=== PATIENT | male | born 1960 | race Caucasian/White ===

== ENCOUNTER 2016-07-10 09:20 | Outpatient (CLI) | payer OTHER ==
[~2016-07-10 09:20] MED LIST: ALBUTEROL INH; ASPI81TA28 PO; CHOL20007 PO; DOCU-94 PO; DULO60CA44 PO; DUTA0.5C PO; FERRTAB18 PO; FLUT1INH INH; FOLI1TAB7 PO; IPRATROPIUM INH; MORP60TA6 PO; MULT-884 PO; OXYCODONE PO; PANT40TA PO; SENN-61 PO; TAMS0.4C38 PO; UMEC1AER INH; atarax PO; gabapentin PO
[2017-01-22] MEDS ORDERED: ATRIN INH (09:36)
[2017-01-22] MEDS ORDERED: OXYC1TAB3 PO (09:36)
[2017-01-22] MEDS ORDERED: HYDR-3126 PO (09:36)
[2017-01-22] MEDS ORDERED: GABA-112 PO (09:36)
== END 2016-07-10 09:45 ==
LOC: C.PAIN 09:20 → EDSTATUS 09:30 → C.PAIN 09:45
PROVIDERS: ATTEND Anesthesiology

== ENCOUNTER → 2017-10-15 | Outpatient (CLI) | payer OTHER ==
[~2017-10-15] MED LIST changes: -ALBUTEROL INH; +ATRIN INH; -FOLI1TAB7 PO; +FOLI1TAB8 PO; +GABA-112 PO; +HYDR-3126 PO; -IPRATROPIUM INH; +OXYC1TAB3 PO; -OXYCODONE PO; -atarax PO; -gabapentin PO
[2017-10-15 16:59] LABS: BASO % 0.8 %; BASO ABS # 0.05 K/uL (0-0.2); EOS % 5.3 %; EOS ABS # 0.35 K/uL (0-0.5); HEMATOCRIT 35.5 % (42-52); HEMOGLOBIN 11.4 g/dL (14.0-18.0); IG# 0.02 K/uL (0.00-0.02); LYMPH % 24.3 %; MEAN CELL VOLUME 87.7 fL (80-100); MEAN CORPUSCULAR HEMOGLOBIN 28.1 pg (25-34); MEAN CORPUSCULAR HGB CONC 32.1 g/dl (32-36); MEAN PLATELET VOLUME 8.2 fL (7.4-10.4); MONO % 6.5 %; MONO ABS # 0.43 K/uL (0.11-0.59); NEUT % 62.8 %; NEUT ABS # 4.14 K/uL (1.4-6.5); PLATELET COUNT 339 K/uL (130-400); RED CELL DISTRIBUTION WIDTH SD 54.8 fL (36.4-46.3); WHITE BLOOD COUNT 6.59 K/uL (4.8-10.8)
[2017-10-15 17:23] LABS: ALBUMIN 3.1 gm/dl (3.4-5.0); ALKALINE PHOSPHATASE 123 U/L (45-117); ALT/SGPT 11 U/L (12-78); AST/SGOT 13 U/L (15-37); BLOOD UREA NITROGEN 9 mg/dl (7-18); CALCIUM 8.8 mg/dl (8.5-10.1); CARBON DIOXIDE 32 mmol/L (21-32); CREATININE 1.19 mg/dl (0.60-1.40); GLUCOSE 106 mg/dl (70-99); SODIUM 139 mmol/L (136-145); TOTAL PROTEIN 7.8 gm/dl (6.4-8.2)
== END | disposition home or self-care (01) ==
LOC: C.LABPBG 11:27
PROVIDERS: ATTEND Family Medicine
DX: N18.3 Chronic kidney disease, stage 3 (moderate) (principal); D64.9 Anemia, unspecified

== ENCOUNTER 2019-04-05 19:38 | Inpatient (IN) ==
[2019-04-05] MEDS ORDERED: SODIUM CHLORIDE 0.9% 1000ML 1,000 ML IV ONE ×2 (20:12→20:41)
[2019-04-05] MEDS ORDERED: ALBUT/IPRATROP 3MG/0.5MG NEB 3 ML VIAL NEB ONE (20:12)
[2019-04-05] MEDS ORDERED: methylPREDNISolone 125 MG/2 ML VIAL IV STA (20:12)
[2019-04-05] MEDS ORDERED: cefTRIAXone SODIUM 1,000 MG/50 ML BAG IV STA (20:30)
[2019-04-05 20:33] LABS: Basophils # (auto) 0.03 K/uL (0-0.2); Basophils % (auto) 0.3 %; Eosinophils # (auto) 0.08 K/uL (0-0.5); Eosinophils % (auto) 0.8 %; Hematocrit (blood only) 39.3 % (42-52); Hemoglobin 13.3 g/dL (14.0-18.0); Immature Granulocytes # (auto) 0.03 K/uL (0.00-0.02); Immature Granulocytes % (auto) 0.3 %; Lymphocytes # (auto) 1.07 K/uL (1.2-3.4); Lymphocytes % (auto) 10.1 %; Mean Corpuscular Hgb Conc 33.8 g/dL (32-36); Mean Corpuscular Volume 88.5 fL (80-100); Mean Platelet Volume 8.4 fL (7.4-10.4); Monocytes # (auto) 1.26 K/uL (0.11-0.59); Monocytes % (auto) 11.8 %; Neutrophils # (auto) 8.17 K/uL (1.4-6.5); Neutrophils % (auto) 76.7 %; Platelet Count 297 K/uL (130-400); RDW Coefficient of Variation 15.3 % (11.5-14.5); RDW Standard Deviation 49.8 fL (36.4-46.3); Red Blood Count 4.44 M/uL (4.7-6.1); White Blood Count 10.64 K/uL (4.8-10.8)
[2019-04-05 20:48] LABS: Base Excess VBG 0.8 mEq/L; HCO3 VBG 28 mmol/L; PCO2 VBG 53 mmHg (38-50); PO2 VBG 31 mmHg; pH VBG 7.33 (7.36-7.41)
[2019-04-05 20:49] LABS: INR 1.1 (0.9-1.1); Partial Thromboplastin Ratio 1.2; Partial Thromboplastin Time 31.3 Seconds (21.0-31.0); Prothrombin Time 11.4 Seconds (9.0-12.0)
[2019-04-05 20:51] LABS: Alanine Aminotransferase 16 U/L (12-78); Albumin Level 3.3 gm/dl (3.4-5.0); Aspartate Aminotransferase 12 U/L (15-37); BUN Creatinine Ratio 14.2 (10-20); Blood Urea Nitrogen 20 mg/dl (7-18); Calcium 9.6 mg/dl (8.5-10.1); Carbon Dioxide 28 mmol/L (21-32); Chloride 99 mmol/L (98-107); Creatinine Clr Calc Pharmacy 53.3 ml/min; Est GFR (African American) 64.3; Est GFR (Non-African American) 55.5; Glucose 97 mg/dl (70-99); Potassium 4.1 mmol/L (3.5-5.1); Sodium 132 mmol/L (136-145)
[2019-04-05 20:56] LABS: Albumin Globulin Ratio 0.6 (0.9-2); Alkaline Phosphatase 210 U/L (45-117); Bilirubin,Total 0.8 mg/dl (0.2-1); Globulin 5.8 gm/dl (2.5-4.0); Total Protein 9.1 gm/dl (6.4-8.2); Troponin I < 0.015 ng/ml (0-0.045)
[2019-04-05 21:04] LABS: Oxygen Saturation VBG < 60.0 %
--- NOTE | 2019-04-05 21:13 | XRay Report ---
SINGLE VIEW CHEST CLINICAL HISTORY: Sepsis. FINDINGS: 2 AP, portable, upright chest radiographs are correlated with chest CT dated 11/21/2015. The examination is degraded by portable technique and patient rotation. The cardiomediastinal silhouette is unremarkable noting atherosclerotic calcification of the thoracic aorta. Enlargement of the centr al pulmonary arteries suggests pulmonary artery hypertension. Advanced emphysema and chronic intersti tial thickening are similar to previous. Biapical bullous change is noted, right greater than left. L inear scarring in the right midlung is similar to previous, and scarring is noted at both lung bases. There is patchy airspace consolidation in the left mid to lower lung, with additional densities in t he right lower lung. A 1.6 cm density is noted in the left upper lobe. No large pleural effusion or p neumothorax is seen. The skeletal structures are osteopenic. The bony thorax is grossly intact. IMPRESSION: 1. Advanced emphysema. 2. There is patchy airspace consolidation in the left mid to lower lung and likely in the right lower lung. Additional densities are noted in the left upper lobe. Correlate clinically for evidence of mu ltifocal pneumonia. Radiographic follow-up to complete resolution is recommended. If these densities failed to resolve a nonemergent chest CT should be considered for further assessment. Electronically signed by: Thee De La Cruz M.D. 04/05/2019 9:12 PM
[2019-04-05 21:18] LABS: Influenza A virus by PCR Neg for Influ A (Neg); Influenza B virus by PCR Neg for Influ B (Neg)
[2019-04-05] MEDS ORDERED: AZITHROMYCIN 250 MG TAB PO ONE (21:21)
--- NOTE | 2019-04-05 22:28 | History & Physical Report ---
Date of Service April 05, 2019 Assessment & Plan (1) Multifocal pneumonia: Mr. Park is a 58-year-old male with a past medical history of CKD stage III, COPD, liver cirrhosis, hypothyroidism, depression, prediabetes, alcoholic neuropathy and chronic pain syndrome who presents to the emergency department, after being referred from his PCPs office for cough, shortness of breath and hypoxia. ED Course: 125 mg IV methylprednisolone, 2 L normal saline bolus 1 g IV Rocephin, 500 mg p.o. azithromycin, DuoNebs treatment Sepsis secondary to multifocal pneumonia -Admit to telemetry -Patient meets criteria for sepsis with tachycardia and tachypnea, with a pulmonary source of infection -Chest x-ray revealed advanced emphysema and airspace consolidation in the left mid to lower lung, and right lower lung, as well as left upper lobe indicating multifocal pneumonia -Patient's oxygen saturations dropped to 77% on room air in ER, patient was placed on CPAP and has been saturating well since -Blood cultures drawn and pending x2 -Patient received Rocephin and azithromycin in ER, however given history of COPD and presence of multifocal pneumonia, will broaden antibiotic coverage to Zosyn, vancomycin and azithromycin -MRSA swab ordered -Will also continue IV steroids, given significant wheezing on examination. 60 mg IV Solu-Medrol ordered every 8 hours -2 L normal saline bolus administered in the ER, continue maintenance IV fluids with lactated Ringer's at 100 mls/hr x 2 bags -DuoNebs ordered every 4 hours scheduled Chronic kidney disease stage III -Follows with nephrology -Creatinine 1.39 on admission, continue to monitor. Baseline appears to be 1.1 -Avoid nephrotoxic agents COPD -Continue home inhalers Anemia -chronic and stable, related to iron deficiency -Hemoglobin 13.3 on arrival -Colonoscopy in August 2016 noted internal hemorrhoids and tubular adenoma, due for repeat colonoscopy in 3 years -Continue home iron supplementation and folic acid Alcoholic cirrhosis -Per review of outpatient records, was previously on the transplant list at [facility], but was discharged from the list due to "low numbers" -Follows with GI Dr. Almodovar every 3-4 months at [facility] -Quit drinking in 2011 Prediabetes -Hemoglobin A1c 6.3% in May 2018 -Given patient will be placed on high-dose IV steroids, will order BSG AC/HS with insulin sliding scale BPH -Hold home tamsulosin given hypotension Depression -Continue home BuSpar and venlafaxine GERD -Continue home pantoprazole Alcoholic neuropathy/chronic pain -Continue home PRN oxycodone and gabapentin -Follows with pain management Hypothyroidism -Continue home levothyroxine CODE STATUS: Full DVT prophylaxis: 40 mg Lovenox SQ daily Disposition: Admit to telemetry (2) COPD exacerbation: (3) Respiratory failure: (4) Acid reflux: (5) Anemia: (6) Benign prostate hyperplasia: (7) Chronic kidney disease, stage III (moderate): (8) Chronic pain syndrome: (9) Cirrhosis, alcoholic: (10) Depression: (11) Hypothyroidism: (12) Insomnia: (13) Neuropathy, alcoholic: (14) Prediabetes: History of Present Illness Chief Complaint: Cough, shortness of breath Primary Care Provider: Michelle Campos DO Mr. Park is a 58-year-old male with a past medical history of CKD stage III, COPD, liver cirrhosis, hypothyroidism, depression, prediabetes, alcoholic neuropathy and chronic pain syndrome who presents to the emergency department, after being referred from his PCPs office for cough, shortness of breath and hypoxia. He presented to his PCPs office earlier today due to productive cough, shortness of breath, chest tightness for 1 week. He states that his entire family has had cold-like symptoms recently, however their symptoms have all improved, whereas he has been worsening. He states that he has a history of COPD, and has been using his inhalers at home as prescribed. He reports also trying his nebulizer treatments at home without relief in symptoms. He denies fever or chills, but reports feeling significantly short of breath, particularly with holding a conversation. He denies any chest pain. He does not normally use oxygen at home. He states that he has not been hospitalized for pneumonia before. He has no prior cardiac history, including an [place] or congestive heart failure. His primary care provider checked his oxygen level in the office, and found it was dropping to 83% during conversation. They administered a DuoNeb treatment and oxygen in the office, and his saturations improved to 92%. They recommended that he come to the ER for evaluation. Allergies Allergy/AdvReac Type Severity Reaction Status Date / Time pregabalin Allergy Unknown ANAPHYLAXIS Verified 04/05/19 18:17 Home Medications Home Medications Medication Instructions Recorded Confirmed Type aspirin 81 mg tablet,delayed 81 mg PO DAILY #30 tab 12/22/18 04/05/19 Rx release buspirone 10 mg tablet 10 mg PO TID #90 tab 12/22/18 04/05/19 Rx cholecalciferol (vitamin D3) 3,000 3,000 unit PO BID #60 tab 12/22/18 04/05/19 Rx unit tablet ferrous sulfate 325 mg (65 mg 325 mg PO BID #60 tab 12/22/18 04/05/19 Rx iron) tablet fluticasone furoate 100 1 inh INHALATION QAM #60 ea 12/22/18 04/05/19 Rx mcg-vilanterol 25 mcg/dose inhalation powder ipratropium-albuterol 0.5 mg-3 3 ml INHALATION Q6H PRN #3 ml 12/22/18 04/05/19 Rx mg(2.5 mg base)/3 mL nebulization soln levothyroxine 25 mcg tablet 25 mcg PO DAILY #30 tab 12/22/18 04/05/19 Rx oxycodone 10 mg tablet 10 mg PO Q6H PRN #30 tab 12/22/18 04/05/19 Rx sennosides 8.6 mg tablet 8.6 mg PO BID #60 tab 12/22/18 04/05/19 Rx umeclidinium 62.5 mcg-vilanterol 1 inh INHALATION QPM #60 ea 12/22/18 04/05/19 Rx 25 mcg/actuation powdr for inhalation gabapentin 600 mg tablet 600 mg PO QID #120 tab 01/12/19 04/05/19 Rx hydroxyzine HCl 25 mg tablet 25 mg PO TID #90 tab 01/12/19 04/05/19 Rx pantoprazole 40 mg tablet,delayed 40 mg PO DAILY #30 tab 01/12/19 04/05/19 Rx release folic acid 1 mg tablet 1 mg PO DAILY #30 tab 02/14/19 04/05/19 Rx mirtazapine 30 mg tablet 30 mg PO HS #30 tab 02/14/19 04/05/19 Rx tamsulosin 0.4 mg capsule 0.4 mg PO DAILY #30 cap 02/14/19 04/05/19 Rx venlafaxine ER 150 mg 150 mg PO QAM #30 cap 02/14/19 04/05/19 Rx capsule,extended release 24 hr gabapentin 100 mg capsule 100 mg PO QID #120 cap 02/16/19 04/05/19 Rx docusate sodium 100 mg capsule 100 mg PO BID #60 cap 03/20/19 04/05/19 Rx Past Med/Surg History Medical History Acid reflux Anemia Benign prostate hyperplasia Charcot's joint of foot, non-diabetic Chronic kidney disease, stage III (moderate) Chronic obstructive pulmonary disease Chronic pain syndrome Cirrhosis, alcoholic Constipation Depression Disc degeneration, lumbar Hypothyroidism Insomnia Neuropathy, alcoholic 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, left ankle and foot Portal hypertension Prediabetes Avascular necrosis of bone of left hip History of pneumonia Surgical History H/O oral surgery tooth extraction Hx of umbilical hernia repair 11/14/12 S/P hip [place] [facility] [place] post [place] surgery January 10, 2013 L hip fracture w/ fixation Status post total replacement of left hip January 18, 2018 Family History Father Aneurysm Hx of CABG Family history of cardiac pacemaker Coronary heart disease Cardiac pacemaker Mother Family history of cardiac pacemaker Diabetes Hypertension Cardiac pacemaker Brother Diabetes Other Family history non-contributory Social History Preferred Language: Albanian Visual Impairment: No Limitations Hearing Ability: Normal Beliefs That Will Affect Care: None marital status: marital status details: 1 son, 3 daughters Current Living Situation: Spouse Current Living Situation Comment: lives with spouse, daughter and grandchild. current occupational status: unemployed and disabled Other Information That Helps Us Care for You: No Feels Safe at Home: Yes Safety Concerns: Feels Safe At This Time Smoking Status: Current every day smoker Tobacco Type: cigarettes ; Cigarettes Per Day: 10 ; Second Hand Exposure: No ; Hx Alcohol Use: No Hx Substance Use: Yes substance use type: marijuana Substance Use Type Other:: couple times a week Last Used Substance: Days (ago) Last Used Substance Other:: 2 days ago Dental Care, Regularly: No Physical Activity Frequency: Does not Exercise Seatbelt Use: always Review of Systems Constitutional: + fatigue; no fever, no chills and no anorexia Respiratory: + cough, + chest congestion, + dyspnea and + sputum production; no hemoptysis Cardiovascular: no chest pain, no palpitations, no syncope, no edema and no calf pain Gastrointestinal: no abdominal pain, no nausea, no vomiting and no change in bowel habits Genitourinary: no dysuria, no difficulty urinating, no urinary frequency and no urinary incontinence Musculoskeletal: no back pain Physical Exam Constitutional: WD/WN, vitals as above Tachypneic, wearing CPAP Eyes: PERRL, conjunctivae normal, anicteric sclerae Respiratory: + cough Auscultation: + rhonchi and + wheezes Cardiovascular: Rate/Rhythm: regular rhythm and + tachycardic Vessels: normal peripheral pulses Extremities: normal capillary refill; no calf tenderness and no edema Gastrointestinal (Abdomen): normal bowel sounds, soft, nontender, no hepatosplenomegaly Musculoskeletal: no cyanosis or clubbing, extremities motor strength 5/5 Skin: no rashes, warm and dry Neurologic: PERRL, EOMI, accommodation nl, no face palsy, no dysarthria Psychiatric: A+Ox3, euthymic affect Results & Data Vital Signs (Past 12 Hours) Vital Signs Temp Pulse Pulse Resp BP Pulse Ox 04/05/19 22:00 100 H 25 H 108/65 99 04/05/19 21:30 100 H 27 H 115/65 100 04/05/19 21:09 100 04/05/19 21:00 98 H 16 111/66 100 04/05/19 20:58 97 H 20 107/66 100 04/05/19 20:43 101 H 24 100 04/05/19 20:15 100 H 24 100 04/05/19 19:59 37.3 C 121 H 30 H 104/60 77 L 04/05/19 19:27 106 H 17 127/81 100 Supervising Physician Co-Signing Physician Notes Patient was seen and examined by me personally. I reviewed the chart, the orders and discussed the case in detail with Dr. Sandra Clarke MD. I read this H&P and agree with its contents to entirety. Resident Activity Tracking Resident Involvement: Resident Care Provided Care Provided: Adult Hospital Medicine (1) Respiratory failure Chronicity: unspecified Respiratory failure complication: hypoxia and hypercapnia Qualified Code(s): J96.91 - Respiratory failure, unspecified with hypoxia; J96.92 - Respiratory failure, unspecified with hypercapnia
[2019-04-05] MEDS ORDERED: DEXTROSE 50% 50 ML SYRINGE IV PRN (23:38)
[2019-04-05] MEDS ORDERED: ONDANSETRON INJ 2 MG/ML 2 ML VIAL IV PRN (23:38)
[2019-04-05] MEDS ORDERED: CARBOHYDRATES FOR HYPOGLYCEMIA PO PRN (23:38)
[2019-04-05] MEDS ORDERED: ACETAMINOPHEN 325 MG TAB PO PRN (23:38)
[2019-04-05] MEDS ORDERED: GLUCOSE 10 TABS/TUBE PO PRN (23:38)
[2019-04-05] MEDS ORDERED: MAGNESIUM HYDROXIDE SUSP 30 ML UDC PO PRN (23:38)
[2019-04-05] MEDS ORDERED: ALUMINUM/MAGNESIUM SUSP 30 ML UDC PO PRN (23:38)
[2019-04-05] MEDS ORDERED: PIPERACILL/TAZOBAC CONSULT ACTIVE PRN (23:38)
[2019-04-05] MEDS ORDERED: POLYETHYLENE (MIRALAX) 17 GM PACK PO PRN (23:38)
[2019-04-05] MEDS ORDERED: GLUCAGON FOR INJ 1 MG VIAL SQ PRN (23:38)
[2019-04-05] MEDS ORDERED: GLUCOSE 40% GEL 15 GM TUBE PO PRN (23:38)
[2019-04-05] MEDS ORDERED: VANCOMYCIN CONSULT ACTIVE PRN (23:38)
[2019-04-05] MEDS ORDERED: OXYCODONE HCL IR 5 MG TAB (IMMEDIATE RELEASE) PO PRN (23:38)
[2019-04-06] MEDS: LACTATED RINGER'S 1,000 ML IV SCH ×2 (00:28→09:48)
[2019-04-06] MEDS: PIPERACILLIN/TAZOBACTAM 3.375 GM in DEXTROSE 5% 100 ML IV SCH ×2 (00:53→09:05)
--- NOTE | 2019-04-06 00:59 | Emergency Department Note ---
Entered by Ayaka Hoffman acting as a scribe for Kristian Saab M.D. History of Present Illness General Chief complaint: Hypotension Stated complaint: LOW BLOOD PRESSURE,LOW QX ANF HIGH HEART RATE Time Seen by Provider: 04/05/19 20:08 Source: patient Limitations: no limitations History of Present Illness Onset (ago): day(s) 3 Location: chest Pain Consistency: + constant Quality: + other (breathing difficulty) Relieved By: + other (breathing treatment) Exacerbated By: + other (exacerbation) Associated symptoms: + denies other symptoms (abdominal pain, sore throat, new body aches, and fevers), + headaches and + other (lower extremity pain, rhinorrhea, cough) The patient is a 58 year old male who presents to the Emergency Room with complaints of constant difficulty breathing that began 3 days ago. He states that he saw his PCP, and he was given a breathing treatment that provided short- term relief. The patient notes that his at-home nebulizer provided some relief. The patient reports that exertion worsens the symptoms. He complains of lower extremity pain and a severe headache. He notes that he has rhinorrhea and a cough. The patient denies feeling lightheaded or dizzy. He denies any abdominal pain, sore throat, new body aches, and fevers. The patient notes recent sick contacts. He notes that he smokes cigarettes. Home Medications Home Medications Medication Instructions Recorded Confirmed Type aspirin 81 mg tablet,delayed 81 mg PO DAILY #30 tab 12/22/18 04/05/19 Rx release buspirone 10 mg tablet 10 mg PO TID #90 tab 12/22/18 04/05/19 Rx cholecalciferol (vitamin D3) 3,000 3,000 unit PO BID #60 tab 12/22/18 04/05/19 Rx unit tablet ferrous sulfate 325 mg (65 mg 325 mg PO BID #60 tab 12/22/18 04/05/19 Rx iron) tablet fluticasone furoate 100 1 inh INHALATION QAM #60 ea 12/22/18 04/05/19 Rx mcg-vilanterol 25 mcg/dose inhalation powder ipratropium-albuterol 0.5 mg-3 3 ml INHALATION Q6H PRN #3 ml 12/22/18 04/05/19 Rx mg(2.5 mg base)/3 mL nebulization soln levothyroxine 25 mcg tablet 25 mcg PO DAILY #30 tab 12/22/18 04/05/19 Rx oxycodone 10 mg tablet 10 mg PO Q6H PRN #30 tab 12/22/18 04/05/19 Rx sennosides 8.6 mg tablet 8.6 mg PO BID #60 tab 12/22/18 04/05/19 Rx umeclidinium 62.5 mcg-vilanterol 1 inh INHALATION QPM #60 ea 12/22/18 04/05/19 Rx 25 mcg/actuation powdr for inhalation gabapentin 600 mg tablet 600 mg PO QID #120 tab 01/12/19 04/05/19 Rx hydroxyzine HCl 25 mg tablet 25 mg PO TID #90 tab 01/12/19 04/05/19 Rx pantoprazole 40 mg tablet,delayed 40 mg PO DAILY #30 tab 01/12/19 04/05/19 Rx release folic acid 1 mg tablet 1 mg PO DAILY #30 tab 02/14/19 04/05/19 Rx mirtazapine 30 mg tablet 30 mg PO HS #30 tab 02/14/19 04/05/19 Rx tamsulosin 0.4 mg capsule 0.4 mg PO DAILY #30 cap 02/14/19 04/05/19 Rx venlafaxine ER 150 mg 150 mg PO QAM #30 cap 02/14/19 04/05/19 Rx capsule,extended release 24 hr gabapentin 100 mg capsule 100 mg PO QID #120 cap 02/16/19 04/05/19 Rx docusate sodium 100 mg capsule 100 mg PO BID #60 cap 03/20/19 04/05/19 Rx Allergies Allergy/AdvReac Type Severity Reaction Status Date / Time pregabalin Allergy Unknown ANAPHYLAXIS Verified 04/05/19 18:17 Past Med/Surg History Medical History Acid reflux Anemia Benign prostate hyperplasia Charcot's joint of foot, non-diabetic Chronic kidney disease, stage III (moderate) Chronic obstructive pulmonary disease Chronic pain syndrome Cirrhosis, alcoholic Constipation Depression Disc degeneration, lumbar Hypothyroidism Insomnia Neuropathy, alcoholic 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, left ankle and foot Portal hypertension Prediabetes Avascular necrosis of bone of left hip History of pneumonia Surgical History H/O oral surgery tooth extraction Hx of umbilical hernia repair 11/14/12 S/P hip replacement R hip, 11/09/18 at [facility] [place] Status post hip surgery January 10, 2013 L hip fracture w/ fixation Status post total replacement of left hip January 18, 2018 Family History Father Aneurysm Hx of CABG Family history of cardiac pacemaker Coronary heart disease Cardiac pacemaker Mother Family history of cardiac pacemaker Diabetes Hypertension Cardiac pacemaker Brother Diabetes Other Family history non-contributory Social History Preferred Language: Slovenian Visual Impairment: No Limitations Hearing Ability: Normal Beliefs That Will Affect Care: None marital status: marital status details: 1 son, 3 daughters Current Living Situation: Spouse Current Living Situation Comment: lives with spouse, daughter and grandchild. current occupational status: unemployed and disabled Other Information That Helps Us Care for You: No Feels Safe at Home: Yes Safety Concerns: Feels Safe At This Time Smoking Status: Current every day smoker Tobacco Type: cigarettes ; Cigarettes Per Day: 10 ; Second Hand Exposure: No ; Hx Alcohol Use: No Hx Substance Use: Yes substance use type: marijuana Substance Use Type Other:: couple times a week Last Used Substance: Days (ago) Last Used Substance Other:: 2 days ago Dental Care, Regularly: No Physical Activity Frequency: Does not Exercise Seatbelt Use: always Review of Systems See HPI for pertinent positives & negatives. and A total of 10 systems reviewed and were otherwise negative Physical Exam Vital Signs Vital Signs - 24 hr 04/05/19 19:27 04/05/19 19:59 04/05/19 20:15 Temperature 37.3 C Temperature Source Oral Sepsis Recent Fever Within 48 Hours No Sepsis New/Unexplained Change in Mental Status No Sepsis Action Taken by Nursing No Action Required Pulse Rate 106 H 121 H Pulse Rate [Apical] 100 H Pulse Rate from SpO2 Sensor 106 H Respiratory Rate 17 30 H 24 Respiratory Effort / Characteristics Accessory Muscle Use Grunting Labored Retracting Spontaneous Labored Short of Breath SOB on Exertion Tripoding Respiratory Depth Respiratory Pattern Blood Pressure 127/81 104/60 Blood Pressure Mean 96 74 Pulse Oximetry 100 77 L 100 Oxygen Delivery Method Room Air CPAP Fraction of Inspired Oxygen 35 04/05/19 20:43 04/05/19 20:58 04/05/19 21:00 Temperature Temperature Source Sepsis Recent Fever Within 48 Hours Sepsis New/Unexplained Change in Mental Status Sepsis Action Taken by Nursing Pulse Rate 101 H 97 H 98 H Pulse Rate [Apical] Pulse Rate from SpO2 Sensor 99 H 98 H Respiratory Rate 24 20 16 Respiratory Effort / Characteristics Spontaneous Accessory Muscle Use Labored Short of Breath SOB on Exertion Tripoding Respiratory Depth Shallow Respiratory Pattern Irregular Tachypnea Blood Pressure 107/66 111/66 Blood Pressure Mean 79 81 Pulse Oximetry 100 100 100 Oxygen Delivery Method Fraction of Inspired Oxygen 35 04/05/19 21:09 04/05/19 21:30 04/05/19 22:00 Temperature Temperature Source Sepsis Recent Fever Within 48 Hours Sepsis New/Unexplained Change in Mental Status Sepsis Action Taken by Nursing Pulse Rate 100 H 100 H Pulse Rate [Apical] Pulse Rate from SpO2 Sensor 100 H 100 H Respiratory Rate 27 H 25 H Respiratory Effort / Characteristics Respiratory Depth Respiratory Pattern Blood Pressure 115/65 108/65 Blood Pressure Mean 81 79 Pulse Oximetry 100 100 99 Oxygen Delivery Method CPAP Fraction of Inspired Oxygen 04/05/19 22:30 Temperature Temperature Source Sepsis Recent Fever Within 48 Hours Sepsis New/Unexplained Change in Mental Status Sepsis Action Taken by Nursing Pulse Rate 100 H Pulse Rate [Apical] Pulse Rate from SpO2 Sensor 100 H Respiratory Rate 25 H Respiratory Effort / Characteristics Respiratory Depth Respiratory Pattern Blood Pressure 115/69 Blood Pressure Mean 84 Pulse Oximetry 97 Oxygen Delivery Method Fraction of Inspired Oxygen GENERAL: Awake, alert, sitting upright breathing hard oin NRB HENT: Normocephalic, atraumatic. EYES: Normal conjunctiva. Sclera non-icteric. NECK: Supple. No nuchal rigidity. RESPIRATORY: Increased work of breathing on a nonrebreather, mild retractions, diffuse wheezes. CARDIAC: Tachycardic rate. Normal rhythm. Extremities warm and well perfused. GI: Soft, non-distended. No tenderness to palpation. No rebound or guarding. No masses. RECTAL: Deferred. MUSCULOSKELETAL: Atraumatic. Chest examination reveals no tenderness. LOWER EXTREMITIES: Calves are equal size bilaterally and non-tender. No edema NEURO: Normal sensorium. No sensory or motor deficits noted. No facial droop. SKIN: Warm and dry. No rash or jaundice noted. Course 2009: The patient was evaluated in room A10. A complete history and physical exam was performed. 2039: I reassessed the patient, and he was on BiPAP. 2128: I spoke with Dr. Fulton, [facility] hospitalist, about the patient's case. He will further evaluate the patient. Administered Medications Lactated Ringer's (Lr) 1,000 mls @ 100 mls/hr IV .Q10H ISSAC Stop: 04/06/19 19:37 Last Admin: 04/06/19 00:28 Dose: 100 mls/hr Documented by: [id number] Piperacillin Sod/Tazobactam (Sod 3.375 gm/ Dextrose) 115 mls @ 28.75 mls/hr IV Q8H ISSAC; Protocol Stop: 04/13/19 00:59 Last Admin: 04/06/19 00:53 Dose: 28.8 mls/hr Documented by: [id number] Vancomycin HCl 1,500 mg/ (Sodium Chloride) 530 mls @ 200 mls/hr IV NOW ONE; Protocol Stop: 04/06/19 03:38 Last Admin: 04/06/19 00:53 Dose: 200 mls/hr Documented by: [id number] Discontinued Medications Albuterol (Duoneb) 12 ml NEB ONE ONE Stop: 04/05/19 20:13 Last Admin: 04/05/19 20:42 Dose: 12 ml Documented by: [id number] Azithromycin (Zithromax) 500 mg PO NOW ONE Stop: 04/05/19 21:22 Last Admin: 04/05/19 21:42 Dose: 500 mg Documented by: [id number] Sodium Chloride (Nss 1000ml) 1,000 mls @ 999 mls/hr IV .Q1H1M ONE Stop: 04/05/19 21:12 Last Infusion: 04/05/19 21:36 Dose: 0 mls/hr Documented by: [id number] Admin: 04/05/19 20:22 Dose: 999 mls/hr Documented by: [id number] Ceftriaxone Sodium (Rocephin) 1,000 mg in 50 mls @ 100 mls/hr IV NOW STA Stop: 04/05/19 20:59 Last Infusion: 04/05/19 21:08 Dose: 0 mls/hr Documented by: [id number] Admin: 04/05/19 20:34 Dose: 100 mls/hr Documented by: [id number] Sodium Chloride (Nss 1000ml) 1,000 mls @ 999 mls/hr IV .Q1H1M ONE Stop: 04/05/19 21:41 Last Infusion: 04/05/19 21:08 Dose: 0 mls/hr Documented by: [id number] Admin: 04/05/19 20:48 Dose: 999 mls/hr Documented by: [id number] Methylprednisolone (Solumedrol) 125 mg IV NOW STA Stop: 04/05/19 20:13 Last Admin: 04/05/19 20:22 Dose: 125 mg Documented by: [id number] Medical Decision Making Differential Diagnosis Etiologies such as viral syndrome, otitis, pharyngitis, pneumonia, influenza, meningitis, urinary tract infection, septic arthritis, soft tissue infectious process, intra-abdominal process, sepsis, bacteremia, as well as others were entertained. Medical Records Attestation: I reviewed the patient's medical records. Home Medications Current Medication List: was personally reviewed by me Laboratory Data Attestation: I reviewed the patient's lab results. Result diagrams: 04/05/19 20:20 04/05/19 20:20 Lab Results 04/05/19 04/05/19 04/05/19 Range/Units 20:20 20:20 20:20 WBC 10.64 (4.8-10.8) K/uL RBC 4.44 L (4.7-6.1) M/uL Hgb 13.3 L (14.0-18.0) g/dL Hct 39.3 L (42-52) % MCV 88.5 (80-100) fL MCH 30.0 (25-34) pg MCHC 33.8 (32-36) g/dL RDW Std Deviation 49.8 H (36.4-46.3) fL RDW Coeff of Alix 15.3 H (11.5-14.5) % Plt Count 297 (130-400) K/uL MPV 8.4 (7.4-10.4) fL Immature Gran % (Auto) 0.3 % Neut % (Auto) 76.7 % Lymph % (Auto) 10.1 % [place] % (Auto) 11.8 % Eos % (Auto) 0.8 % Baso % (Auto) 0.3 % Immature Gran # (Auto) 0.03 H (0.00-0.02) K/uL Neut # (Auto) 8.17 H (1.4-6.5) K/uL Lymph # (Auto) 1.07 L (1.2-3.4) K/uL [place] # (Auto) 1.26 H (0.11-0.59) K/uL Eos # (Auto) 0.08 (0-0.5) K/uL Baso # (Auto) 0.03 (0-0.2) K/uL PT 11.4 (9.0-12.0) Seconds INR 1.1 (0.9-1.1) APTT 31.3 H (21.0-31.0) Seconds PTT Ratio 1.2 VBG pH (7.36-7.41) VBG pCO2 (38-50) mmHg VBG pO2 mmHg VBG HCO3 mmol/L VBG O2 Saturation % VBG Base Excess mEq/L Barometric Pressure mm/Hg Sodium 132 L (136-145) mmol/L Potassium 4.1 (3.5-5.1) mmol/L Chloride 99 (98-107) mmol/L Carbon Dioxide 28 (21-32) mmol/L Anion Gap 6.0 (3-11) BUN 20 H (7-18) mg/dl Creatinine 1.39 (0.6-1.4) mg/dl Est Cr Clr Drug Dosing 53.3 ml/min Est GFR ( Amer) 64.3 Est GFR (Non-Af Amer) 55.5 BUN/Creatinine Ratio 14.2 (10-20) Glucose 97 (70-99) mg/dl Lactate (0.4-2.0) mmol/L Calcium 9.6 (8.5-10.1) mg/dl Total Bilirubin 0.8 (0.2-1) mg/dl AST 12 L (15-37) U/L ALT 16 (12-78) U/L Alkaline Phosphatase 210 H (45-117) U/L Troponin I < 0.015 (0-0.045) ng/ml Total Protein 9.1 H (6.4-8.2) gm/dl Albumin 3.3 L (3.4-5.0) gm/dl Globulin 5.8 H (2.5-4.0) gm/dl Albumin/Globulin Ratio 0.6 L (0.9-2) Influenza Type A (PCR) (Neg) Influenza Type B (PCR) (Neg) 04/05/19 04/05/19 04/05/19 Range/Units 20:20 20:20 20:21 WBC (4.8-10.8) K/uL RBC (4.7-6.1) M/uL Hgb (14.0-18.0) g/dL Hct (42-52) % MCV (80-100) fL MCH (25-34) pg MCHC (32-36) g/dL RDW Std Deviation (36.4-46.3) fL RDW Coeff of Alix (11.5-14.5) % Plt Count (130-400) K/uL MPV (7.4-10.4) fL Immature Gran % (Auto) % Neut % (Auto) % Lymph % (Auto) % [place] % (Auto) % Eos % (Auto) % Baso % (Auto) % Immature Gran # (Auto) (0.00-0.02) K/uL Neut # (Auto) (1.4-6.5) K/uL Lymph # (Auto) (1.2-3.4) K/uL [place] # (Auto) (0.11-0.59) K/uL Eos # (Auto) (0-0.5) K/uL Baso # (Auto) (0-0.2) K/uL PT (9.0-12.0) Seconds INR (0.9-1.1) APTT (21.0-31.0) Seconds PTT Ratio VBG pH 7.33 L (7.36-7.41) VBG pCO2 53 H (38-50) mmHg VBG pO2 31 mmHg VBG HCO3 28 mmol/L VBG O2 Saturation < 60.0 % VBG Base Excess 0.8 mEq/L Barometric Pressure 738.6 mm/Hg Sodium (136-145) mmol/L Potassium (3.5-5.1) mmol/L Chloride (98-107) mmol/L Carbon Dioxide (21-32) mmol/L Anion Gap (3-11) BUN (7-18) mg/dl Creatinine (0.6-1.4) mg/dl Est Cr Clr Drug Dosing ml/min Est GFR ( Amer) Est GFR (Non-Af Amer) BUN/Creatinine Ratio (10-20) Glucose (70-99) mg/dl Lactate 1.2 (0.4-2.0) mmol/L Calcium (8.5-10.1) mg/dl Total Bilirubin (0.2-1) mg/dl AST (15-37) U/L ALT (12-78) U/L Alkaline Phosphatase (45-117) U/L Troponin I (0-0.045) ng/ml Total Protein (6.4-8.2) gm/dl Albumin (3.4-5.0) gm/dl Globulin (2.5-4.0) gm/dl Albumin/Globulin Ratio (0.9-2) Influenza Type A (PCR) Neg for Influ A (Neg) Influenza Type B (PCR) Neg for Influ B (Neg) Imaging Data Radiologist's Impression: Radiology results as stated below per my review and the radiologist's interpretation: SINGLE VIEW CHEST CLINICAL HISTORY: Sepsis. FINDINGS: 2 AP, portable, upright chest radiographs are correlated with chest CT dated 11/21/2015. The examination is degraded by portable technique and patient rotation. The cardiomediastinal silhouette is unremarkable noting atherosclerotic calcification of the thoracic aorta. Enlargement of the central pulmonary arteries suggests pulmonary artery hypertension. Advanced emphysema and chronic interstitial thickening are similar to previous. Biapical bullous change is noted, right greater than left. Linear scarring in the right midlung is similar to previous, and scarring is noted at both lung bases. There is patchy airspace consolidation in the left mid to lower lung, with additional densities in the right lower lung. A 1.6 cm density is noted in the left upper lobe. No large pleural effusion or pneumothorax is seen. The skeletal structures are osteopenic. The bony thorax is grossly intact. IMPRESSION: 1. Advanced emphysema. 2. There is patchy airspace consolidation in the left mid to lower lung and likely in the right lower lung. Additional densities are noted in the left upper lobe. Correlate clinically for evidence of multifocal pneumonia. Radiographic follow-up to complete resolution is recommended. If these densities failed to resolve a nonemergent chest CT should be considered for further assessment. Electronically signed by: Thee De La Cruz M.D. 04/05/2019 9:12 PM ECG Data Attestation: I personally reviewed and interpreted this ECG as follows: Indication: + SOB/dyspnea Rate (beats per minute): 115 Rhythm: + sinus tachycardia ECG Findings: + Other (no ectopy, no ST elevation, right axis, normal intervals) Blood Pressure Blood Pressure Findings: Elevated blood pressure Blood Pressure Disposition: further management by hospitalist CRISTIANO Narrative Patient is a 58-year-old gentleman with a past medical history including CKD, COPD, BPH, hypothyroidism, and some liver dysfunction presenting today with complaint of several days of cold symptoms with shortness of breath. Continues to smoke and is not on home oxygen. Has nebulizers which he states have been working for the last 3 days but today significant he worsened. Seen in clinic and referred here for further care. No fevers reported but some other sick contacts. Significant shortness of breath reported. Is has increased work of breathing and wheeze on exam. Given his tachycardia and tachypnea and hypoxia sepsis protocol initiated. DuoNeb was ordered. Quickly transitioned to BiPAP for his work of breathing. VBG obtained. Lactate was ordered as well as basic labs and cultures. Given 2 L of IV fluid and Solu-Medrol. Ceftriaxone empirically given for respiratory coverage. EKG & troponin completed; a lower suspicion is acute ACS. Seems more consistent with COPD exacerbation and possible pneumonia than PE or dissection in my opinion. Benign abdomen. No significant edema of the lower extremities and doubt CHF exacerbation at this time. Influenza swab sent. Labs do show white blood cell count of 10. Chest x-ray consistent with a multifocal pneumonia. Oother laboratory studies are fairly reassuring besides a VBG showing evidence of acidosis and hypercarbia. Patient was placed on BiPAP and had improvement of symptomatology and seems much more comfortable. Received additionally azithromycin for pneumonia coverage in addition to the ceftriaxone. Additional IV fluid ordered. Will admit and the hospitalist was contacted. Impression & Plan Multifocal pneumonia, COPD exacerbation, Respiratory failure Critical Care Time Critical Care Time: Yes Total Critical Care Time: 47 I have personally spent 47 minutes of critical care time in the direct management of this patient. This includes bedside care, interpretation of diagnostic studies, and testing, discussion with consultants, patient, and family members, and other required patient management activities. This 47 minutes is in excess of all separately billable procedures. Discharge Plan Visit Data *Final* Discharge Date/Time: 04/05/19 23:22 Chief Complaint: Hypotension Stated Complaint: LOW BLOOD PRESSURE,LOW QX ANF HIGH HEART RATE ED Provider: Kristian Saab Discharge Problem: Multifocal pneumonia, COPD exacerbation, Respiratory failure Patient Disposition: Admitted As Inpatient Discharge Instructions Interventions: ED Discharge Assessment Last Done: 04/05/19 23:22 Discharge Problem: Respiratory failure Qualifiers: Chronicity: unspecified Respiratory failure complication: hypoxia and hypercapnia Qualified Code(s): J96.91 - Respiratory failure, unspecified with hypoxia The scribe's documentation has been prepared under my direction and personally reviewed by me in its entirety. I confirm that the note above accurately reflects all work, treatment, procedures, and medical decision making performed by me.
[2019-04-06] MEDS ORDERED: VANCOMYCIN HCL 1,500 MG in SODIUM CHLORIDE 0.9% 500 ML IV ONE (01:00)
[2019-04-06] MEDS: ALBUT/IPRATROP 3MG/0.5MG NEB 3 ML VIAL NEB SCH ×7 (01:10→22:51)
[2019-04-06] MEDS: methylPREDNISolone 60 MG in SYRINGE 0 ML IV SCH ×3 (03:44→21:07)
[2019-04-06] MEDS: LEVOTHYROXINE SODIUM 25 MCG TABLET PO SCH (05:18)
[2019-04-06] MEDS ORDERED: INFLUENZA ADMINISTRATION CHARGE ONE (07:00)
[2019-04-06] MEDS ORDERED: INFLUENZA VIRUS QUAD VACCINE 0.5 ML SYR IM ONE (07:00)
[2019-04-06 07:06] LABS: BUN Creatinine Ratio 18.2 (10-20); Calcium 8.7 mg/dl (8.5-10.1); Creatinine Clr Calc Pharmacy 67.1 ml/min; Est GFR (African American) 84.4; Est GFR (Non-African American) 72.8; Potassium 4.4 mmol/L (3.5-5.1)
[2019-04-06] MEDS: INSULIN ASPART 100 UNITS/ML 3 ML PEN SC SCH ×4 (08:35→21:07)
[2019-04-06] MEDS: FERROUS SULFATE 325 MG TAB PO SCH ×2 (08:37→21:07)
[2019-04-06] MEDS: GABAPENTIN 100 MG CAP PO SCH ×4 (08:37→21:08)
[2019-04-06] MEDS: AZITHROMYCIN 250 MG TAB PO SCH (08:38)
[2019-04-06] MEDS: GABAPENTIN 600 MG TAB PO SCH ×4 (08:38→21:07)
[2019-04-06] MEDS: DOCUSATE SODIUM 100 MG CAP PO SCH ×2 (08:38→21:07)
[2019-04-06] MEDS: VENLAFAXINE HCL XR 150 MG CAPXR PO SCH (08:39)
[2019-04-06] MEDS: FOLIC ACID 1 MG TAB PO SCH (08:39)
[2019-04-06] MEDS: PANTOprazole 40 MG TAB PO SCH (08:40)
[2019-04-06] MEDS: CHOLECALCIFEROL 1,000 UNITS TAB PO SCH ×2 (08:40→21:07)
[2019-04-06] MEDS: SENNA 8.6 MG TAB PO SCH ×2 (08:40→21:09)
[2019-04-06] MEDS: ENOXAPARIN INJ 40 MG/0.4 ML SYR SQ SCH (08:41)
[2019-04-06] MEDS: ASPIRIN 81 MG ECTAB PO SCH (08:41)
--- NOTE | 2019-04-06 10:05 | CT Scan Report ---
CT chest wo con CT DOSE: 297.68 mGy.cm CLINICAL HISTORY: 58 years-old Male with hypoxia, pneumonia, COPD. COPD with acute hypoxia and possi ble pneumonia TECHNIQUE: Multiaxial CT images of the chest were performed without contrast. A dose lowering techni que was utilized adhering to the principles of ALARA. COMPARISON: Chest radiograph 04/05/2019, chest CT 11/21/2015 FINDINGS: Unremarkable thyroid. Evaluation for adenopathy is limited without the use of IV contrast. There are multiple nonspecific prominent mediastinal and hilar lymph nodes measuring up to approximately 8 mm. Findings appear similar to comparison study. No adenopathy by CT size criteria. Heart is normal in si ze without pericardial effusion. There is no thoracic aortic aneurysm. Prominence of the pulmonary ar tiesha measuring up to 3.1 cm may reflect underlying pulmonary arterial hypertension. There is no pneum othorax or pleural effusion. Severe bullous emphysema. Bilateral bronchial wall thickening compatible with bronchitis. There are patchy bilateral multilobar consolidative and groundglass opacities which are most pronounced within the lower lobes. There is no overt pulmonary edema. Central airways appea r to be patent. Spleen is enlarged measuring up to 14.2 cm. There is suggestion of trace ascites. Partially imaged bi lateral perinephric stranding. Hepatic steatosis. There are 2 foci of air noted posterior to the sple en, possibly within the splenic flexure which was previously noted within this location. Gynecomastia is noted bilaterally. Asymmetric muscular atrophy versus lipoma of the left infraspinatus distributi on. Degenerative changes of the shoulders and spine. Healed remote left-sided rib fractures. Mild con vex right curvature of the midthoracic spine. IMPRESSION: 1. Severe bullous emphysema with multifocal patchy nodular consolidative and groundglass opacities wi thin all lobes bilaterally suggestive of bronchopneumonia. 2. No pleural effusion or adenopathy. 3. Gynecomastia. 4. Splenomegaly. 5. Hepatic steatosis. Electronically signed by: Berny Rangel M.D. 04/06/2019 10:04 AM
--- NOTE | 2019-04-06 11:03 | Pulmonary Consultation ---
Date of Consultation April 06, 2019 Assessment & Plan (1) Acute exacerbation of chronic obstructive pulmonary disease (COPD): Patient appears to be in acute COPD exacerbation possibly secondary to multifocal pneumonia. I have ordered a procalcitonin. Recommend changing his antibiotics to cefepime and azithromycin. This was discussed with Dr. Castellanos who is the hospitalist. He Can be switched to oral prednisone tomorrow at 40 mg daily for total of 10 days. Recommend obtaining a sputum culture and AFB sputum culture as he might be colonized with nontuberculous Mycobacterium given the nodular infiltrates of bronchiectasis seen on his CAT scan. Recommend Acapella flutter device 3-4 times a day for airway clearance. He would also benefit from pulmonary rehab as an outpatient. Recommend obtaining a blood gas in the morning to see if he would qualify for noninvasive ventilation. He will need follow-up with the pulmonary clinic after discharge with full PFTs and a 6- minute walk distance. Continue his current home inhalers upon discharge. Continue duo nebs every 4 hours as needed while inpatient. We will continue following with you. thank you. Present on Admission?: Yes (2) Multifocal pneumonia: Present on Admission?: Yes (3) Acute hypoxemic respiratory failure: Present on Admission?: Yes History of Present Illness Reason for Consultation: COPD and nodular opacities Attending Physician: Jaye Castellanos MD History of Present Illness This is a 58-year-old male with past medical history of COPD, cirrhosis, alcoholism, neuropathy and depression who presented to the hospital due to increasing shortness of breath.Patient notes for the past week and a half he has been having increasing sputum and shortness of breath. Normally he is able to walk at least a football field length of distance at a slower pace than most of his cohorts. But recently he is only been able to walk a couple of feet. Today he notes that he can barely move without getting short of breath. He is requiring an oxygen mask and CPAP at times. He does appear comfortable lying in bed and is mildly tachypneic. He notes that he has had difficulty gaining weight but no significant weight loss. He smokes a pack a day every other day. He has smoked since the age of 15. He has smoked upwards of 3 packs/day. He notes that he He does not have any significant exacerbations of his COPD recently and has had no hospitalizations. He did have a hip surgery a while back and had some trouble with that, but no respiratory issues per his account.He was seen by his primary care office the other day noted to have sats in the low 80s and dropping easily with conversation and thus was asked to come to the hospital. He was started on Zosyn here and IV Solu-Medrol. He had a CT scan performed which demonstrated severe upper lobe bullous emphysema with chronic interstitial markings at the bases. There is evidence of bronchiectasis and some nodular infiltrates seen as well bilaterally. He lives with his and daughter. They have 2 cats. He is currently unemployed and on disability. He worked as a [employer] previously. He had a [facility] in 2014 that demonstrated an FEV1 FVC ratio 47. He had an FEV1 of 72% predicted at that time. There was no significant postbronchodilator change. His lung volumes are normal. His DLCO was 57% predicted. This demonstrated a moderate airflow obstruction. Lastly, he notes that he has been seen by the pain clinic for severe lower extremity neuropathy and that much of his shortness of breath and symptoms aracelis me worse after he was tapered off his opiates. Allergies Allergy/AdvReac Type Severity Reaction Status Date / Time pregabalin Allergy Unknown ANAPHYLAXIS Verified 04/05/19 18:17 Home Medications Home Medications Medication Instructions Recorded Confirmed Type aspirin 81 mg tablet,delayed 81 mg PO DAILY #30 tab 12/22/18 04/05/19 Rx release buspirone 10 mg tablet 10 mg PO TID #90 tab 12/22/18 04/05/19 Rx cholecalciferol (vitamin D3) 3,000 3,000 unit PO BID #60 tab 12/22/18 04/05/19 Rx unit tablet ferrous sulfate 325 mg (65 mg 325 mg PO BID #60 tab 12/22/18 04/05/19 Rx iron) tablet fluticasone furoate 100 1 inh INHALATION QAM #60 ea 12/22/18 04/05/19 Rx mcg-vilanterol 25 mcg/dose inhalation powder ipratropium-albuterol 0.5 mg-3 3 ml INHALATION Q6H PRN #3 ml 12/22/18 04/05/19 Rx mg(2.5 mg base)/3 mL nebulization soln levothyroxine 25 mcg tablet 25 mcg PO DAILY #30 tab 12/22/18 04/05/19 Rx oxycodone 10 mg tablet 10 mg PO Q6H PRN #30 tab 12/22/18 04/05/19 Rx sennosides 8.6 mg tablet 8.6 mg PO BID #60 tab 12/22/18 04/05/19 Rx umeclidinium 62.5 mcg-vilanterol 1 inh INHALATION QPM #60 ea 12/22/18 04/05/19 Rx 25 mcg/actuation powdr for inhalation gabapentin 600 mg tablet 600 mg PO QID #120 tab 01/12/19 04/05/19 Rx hydroxyzine HCl 25 mg tablet 25 mg PO TID #90 tab 01/12/19 04/05/19 Rx pantoprazole 40 mg tablet,delayed 40 mg PO DAILY #30 tab 01/12/19 04/05/19 Rx release folic acid 1 mg tablet 1 mg PO DAILY #30 tab 02/14/19 04/05/19 Rx mirtazapine 30 mg tablet 30 mg PO HS #30 tab 02/14/19 04/05/19 Rx tamsulosin 0.4 mg capsule 0.4 mg PO DAILY #30 cap 02/14/19 04/05/19 Rx venlafaxine ER 150 mg 150 mg PO QAM #30 cap 02/14/19 04/05/19 Rx capsule,extended release 24 hr gabapentin 100 mg capsule 100 mg PO QID #120 cap 02/16/19 04/05/19 Rx docusate sodium 100 mg capsule 100 mg PO BID #60 cap 03/20/19 04/05/19 Rx Patient History Medical History Acid reflux Anemia Benign prostate hyperplasia Charcot's joint of foot, non-diabetic Chronic kidney disease, stage III (moderate) Chronic obstructive pulmonary disease Chronic pain syndrome Cirrhosis, alcoholic Constipation Depression Disc degeneration, lumbar Hypothyroidism Insomnia Neuropathy, alcoholic 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, left ankle and foot Portal hypertension Prediabetes Avascular necrosis of bone of left hip History of pneumonia Surgical History H/O oral surgery tooth extraction Hx of umbilical hernia repair 11/14/12 S/P [place] [facility] [place] post hip surgery January 10, 2013 L hip fracture w/ fixation Status post total replacement of left hip January 18, 2018 Family History Father Aneurysm Hx of CABG Family history of cardiac pacemaker Coronary heart disease Cardiac pacemaker Mother Family history of cardiac pacemaker Diabetes Hypertension Cardiac pacemaker Brother Diabetes Other Family history non-contributory Social History Preferred Language: Lao Visual Impairment: No Limitations Hearing Ability: Normal Beliefs That Will Affect Care: None marital status: marital status details: 1 son, 3 daughters Current Living Situation: Spouse Current Living Situation Comment: lives with spouse, daughter and grandchild. current occupational status: unemployed and disabled Other Information That Helps Us Care for You: No Feels Safe at Home: Yes Safety Concerns: Feels Safe At This Time Smoking Status: Current every day smoker Tobacco Type: cigarettes ; Cigarettes Per Day: 10 ; Second Hand Exposure: No ; Hx Alcohol Use: No Hx Substance Use: Yes substance use type: marijuana Substance Use Type Other:: couple times a week Last Used Substance: Days (ago) Last Used Substance Other:: 2 days ago Dental Care, Regularly: No Physical Activity Frequency: Does not Exercise Seatbelt Use: always Physical Exam Constitutional: Frail and thin. Appears to be cachectic. Oxygen mask in place. Laying in Bed Eyes: PERRL, conjunctivae normal, anicteric sclerae ENMT: external ear and nose normal, oropharynx normal Neck: normal visual inspection Respiratory: Diminished breath sounds bilaterally particularly in the apices. Some crackles in the lower lobes. Tachypneic. Cardiovascular: RRR, no murmur, no edema Gastrointestinal (Abdomen): normal bowel sounds, soft, nontender, no hepatosplenomegaly Musculoskeletal: no cyanosis or clubbing, extremities motor strength 5/5 Skin: no rashes, warm and dry Neurologic: PERRL, EOMI, accommodation nl, no face palsy, no dysarthria Psychiatric: A+Ox3, euthymic affect Lymphatic: no cervical or axillary lymphadenopathy Results & Data Vital Signs (Past 12 Hours) Vital Signs Temp Pulse Pulse Resp BP Pulse Ox Pulse Ox 04/06/19 08:00 62 04/06/19 07:47 97.3 F L 72 27 H 101/61 93 11/07/19 06:56 80 21 99 04/06/19 04:41 97.3 F L 65 20 96/61 L 98 04/06/19 03:23 83 83 34 H 98 04/06/19 01:12 90 04/06/19 00:13 88 28 H 94 04/05/19 23:38 95 04/05/19 23:25 97.7 F 90 24 99/62 L 96 I personally reviewed the patient's pertinent lab and chest imaging PG Care Time/CCT Total # of Minutes Spent Total Time Spent with Patient: Total time spent is greater than 50% in coordination of care (as documented) at patient's floor/unit and/or counseling patient:
--- NOTE | 2019-04-06 16:24 | Billing Data ---
Coding Level of Care Code 67390 Initial Inpt Care Lvl 3
[2019-04-06] MEDS: CEFEPIME 2,000 MG in SYRINGE 7.5 ML IV SCH (16:40)
[2019-04-06] MEDS: FLUTICASONE INH SCH (16:50)
[2019-04-06] MEDS: VILANTEROL INH SCH ×2 (16:50→21:08)
[2019-04-06] MEDS: UMECLIDINIUM BRM INH SCH (21:08)
[2019-04-07] MEDS: CEFEPIME 2,000 MG in SYRINGE 7.5 ML IV SCH ×3 (00:26→21:40)
[2019-04-07] MEDS: ALBUT/IPRATROP 3MG/0.5MG NEB 3 ML VIAL NEB SCH ×6 (02:56→22:06)
[2019-04-07] MEDS: methylPREDNISolone 60 MG in SYRINGE 0 ML IV SCH ×2 (05:07→12:23)
[2019-04-07] MEDS: LEVOTHYROXINE SODIUM 25 MCG TABLET PO SCH (05:20)
--- NOTE | 2019-04-07 06:44 | Hospitalist Progress Note ---
Date of Service Date of service is actually 04/06/2019 April 07, 2019 Assessment & Plan (1) Multifocal pneumonia: Mr. Park is a 58-year-old male with a past medical history of CKD stage III, COPD, liver cirrhosis, hypothyroidism, depression, prediabetes, alcoholic neuropathy and chronic pain syndrome who presents to the emergency department, after being referred from his PCPs office for cough, shortness of breath and hypoxia. Sepsis secondary to multifocal pneumonia-much improved CT of the chest with severe bullous emphysema with multifocal pneumonia -Chest x-ray revealed advanced emphysema and airspace consolidation in the left mid to lower lung, and right lower lung, as well as left upper lobe indicating multifocal pneumonia High risk for nontuberculous mycobacteria as per pulmonology -Check sputum culture, AFB smear -Patient meets criteria for sepsis with tachycardia and tachypnea, with a pulmonary source of infection -Patient's oxygen saturations dropped to 77% on room air in ER, patient was placed on CPAP and has been saturating well since-now weaned to nasal cannula -Blood cultures drawn and pending x2 -Patient received Rocephin and azithromycin in ER, however given history of COPD and presence of multifocal pneumonia, was changed to Zosyn, vancomycin and azithromycin on admission -Pulmonology recommends changing to cefepime and continuing azithromycin, can discontinue vancomycin given negative MRSA swab -Will also continue IV steroids, with 60 mg IV Solu-Medrol ordered every 8 hours - was given IV fluids x2 L-now discontinued -DuoNebs ordered every 4 hours scheduled Chronic kidney disease stage III -Follows with nephrology -Creatinine 1.39 on admission, now back to baseline of 1.1 after IV fluid administration -Avoid nephrotoxic agents COPD -Continue home inhalers -Given severe bullous emphysema and cirrhosis, despite known previous history of alcoholism-question alpha-1 anti-trypsin deficiency-consider testing -Needs PFTs and 6-minute walk test as outpatient -Check ABG in the morning see if qualifies for trilogy ventilator as per pulmonary recommendations Anemia -chronic and stable, related to iron deficiency -Hemoglobin 13.3 on arrival now down to 12.5 likely hemo-dilutional -Colonoscopy in August 2016 noted internal hemorrhoids and tubular adenoma, due for repeat colonoscopy in 3 years -Continue home iron supplementation and folic acid Alcoholic cirrhosis -Per review of outpatient records, was previously on the transplant list at [facility], but was discharged from the list due to "low numbers" -Follows with GI Dr. Almodovar every 3-4 months at [facility] -Quit drinking in 2011 Prediabetes -Hemoglobin A1c 6.3% in May 2018 -Given patient will be placed on high-dose IV steroids, continue BSG AC/HS with insulin sliding scale BPH -Hold home tamsulosin given hypotension-watch for retention Depression- stable -Continue home BuSpar and venlafaxine GERD -Continue home pantoprazole Alcoholic neuropathy/chronic pain-recently titrated off of chronic opioids and is down to 10 mg daily this week for oxycodone -Continue home oxycodone 10 mg daily as needed and gabapentin -Follows with pain management Hypothyroidism-TSH normal in 05/2018 -Continue home levothyroxine CODE STATUS: Full DVT prophylaxis: 40 mg Lovenox SQ daily Disposition: Continued stay on telemetry (2) COPD exacerbation: (3) Respiratory failure: (4) Acid reflux: (5) Anemia: (6) Benign prostate hyperplasia: (7) Chronic kidney disease, stage III (moderate): (8) Chronic pain syndrome: (9) Cirrhosis, alcoholic: (10) Depression: (11) Hypothyroidism: (12) Insomnia: (13) Neuropathy, alcoholic: (14) Prediabetes: Subjective Patient feeling much improved today. Much less short of breath and is weaned off CPAP. Still some cough. Reports chronic pain in the legs and has been weaning off oxycodone as an outpatient. Discussed the case and reviewed CT of the chest with pulmonology-appreciate consultation Telemetry with sinus rhythm with rates in the 80s to 90s Review of Systems Review of Systems: All systems reviewed & are unremarkable except as noted in HPI & below Physical Exam Constitutional: + thin; no acute distress Eyes: + anicteric sclerae ENMT: external ear and nose normal, oropharynx normal Neck: trachea midline, no thyromegaly Respiratory: normal respiratory effort; no labored breathing and does not use accessory muscles Auscultation: + diminished lung sounds (Throughout); no crackles and no wheezes Cardiovascular: RRR, no murmur, no edema Gastrointestinal (Abdomen): normal bowel sounds, soft, nontender, no hepatosplenomegaly Musculoskeletal: Extremities: extremities normal to inspection; no cyanosis and no clubbing Skin: no rashes, warm and dry Neurologic: moves all extremities and awake; no focal motor deficits Psychiatric: A+Ox3, euthymic affect Results & Data Vital Signs (Past 12 Hours) Vital Signs Temp Pulse Resp BP Pulse Ox 04/07/19 03:57 36.4 C L 87 18 104/60 95 04/07/19 02:57 96 H 22 97 04/06/19 23:50 36.6 C 93 H 18 103/58 L 93 04/06/19 22:53 81 18 93 04/06/19 19:57 36.4 C L 86 27 H 106/59 L 94 04/06/19 19:10 90 22 98 Laboratory Results 04/07/19 04/07/19 04/07/19 Range/Units 06:23 05:50 05:43 ABG pH Pending Cancelled ABG pCO2 Pending Cancelled ABG pO2 Pending Cancelled ABG HCO3 Pending Cancelled ABG O2 Saturation Pending Cancelled ABG Base Excess Pending Cancelled William Test Pending Cancelled Barometric Pressure Cancelled Oxygen Given Pending Cancelled Sodium (136-145) mmol/L Potassium (3.5-5.1) mmol/L Chloride (98-107) mmol/L Carbon Dioxide (21-32) mmol/L Anion Gap (3-11) BUN (7-18) mg/dl Creatinine Pending (0.6-1.4) mg/dl Est Cr Clr Drug Dosing Pending ml/min Est GFR ( Amer) Pending Est GFR (Non-Af Amer) Pending BUN/Creatinine Ratio (10-20) Glucose (70-99) mg/dl POC Glucose (70-99) Calcium (8.5-10.1) mg/dl Procalcitonin (0-0.5) ng/ml 04/06/19 04/06/19 04/06/19 Range/Units 20:34 16:06 11:26 ABG pH ABG pCO2 ABG pO2 ABG HCO3 ABG O2 Saturation ABG Base Excess William Test Barometric Pressure Oxygen Given Sodium (136-145) mmol/L Potassium (3.5-5.1) mmol/L Chloride (98-107) mmol/L Carbon Dioxide (21-32) mmol/L Anion Gap (3-11) BUN (7-18) mg/dl Creatinine (0.6-1.4) mg/dl Est Cr Clr Drug Dosing ml/min Est GFR ( Amer) Est GFR (Non-Af Amer) BUN/Creatinine Ratio (10-20) Glucose (70-99) mg/dl POC Glucose 190 H 160 H 173 H (70-99) Calcium (8.5-10.1) mg/dl Procalcitonin (0-0.5) ng/ml 04/06/19 04/06/19 Range/Units 10:44 06:09 ABG pH ABG pCO2 ABG pO2 ABG HCO3 ABG O2 Saturation ABG Base Excess William Test Barometric Pressure Oxygen Given Sodium 138 (136-145) mmol/L Potassium 4.4 (3.5-5.1) mmol/L Chloride 106 (98-107) mmol/L Carbon Dioxide 26 (21-32) mmol/L Anion Gap 6.0 (3-11) BUN 20 H (7-18) mg/dl Creatinine 1.11 (0.6-1.4) mg/dl Est Cr Clr Drug Dosing 67.1 ml/min Est GFR ( Amer) 84.4 Est GFR (Non-Af Amer) 72.8 BUN/Creatinine Ratio 18.2 (10-20) Glucose 178 H (70-99) mg/dl POC Glucose (70-99) Calcium 8.7 (8.5-10.1) mg/dl Procalcitonin 0.38 (0-0.5) ng/ml Diagnostic Findings CT chest wo con CT DOSE: 297.68 mGy.cm CLINICAL HISTORY: 58 years-old Male with hypoxia, pneumonia, COPD. COPD with acute hypoxia and possible pneumonia TECHNIQUE: Multiaxial CT images of the chest were performed without contrast. A dose lowering technique was utilized adhering to the principles of ALARA. COMPARISON: Chest radiograph 04/05/2019, chest CT 11/21/2015 FINDINGS: Unremarkable thyroid. Evaluation for adenopathy is limited without the use of IV contrast. There are multiple nonspecific prominent mediastinal and hilar lymph nodes measuring up to approximately 8 mm. Findings appear similar to comparison study. No adenopathy by CT size criteria. Heart is normal in size without pericardial effusion. There is no thoracic aortic aneurysm. Prominence of the pulmonary artery measuring up to 3.1 cm may reflect underlying pulmonary arterial hypertension. There is no pneumothorax or pleural effusion. Severe bullous emphysema. Bilateral bronchial wall thickening compatible with bronchitis. There are patchy bilateral multilobar consolidative and groundglass opacities which are most pronounced within the lower lobes. There is no overt pulmonary edema. Central airways appear to be patent. Spleen is enlarged measuring up to 14.2 cm. There is suggestion of trace ascites. Partially imaged bilateral perinephric stranding. Hepatic steatosis. There are 2 foci of air noted posterior to the spleen, possibly within the splenic flexure which was previously noted within this location. Gynecomastia is noted bilaterally. Asymmetric muscular atrophy versus lipoma of the left infra spinatus distribution. Degenerative changes of the shoulders and spine. Healed remote left-sided rib fractures. Mild convex right curvature of the midthoracic spine. IMPRESSION: 1. Severe bullous emphysema with multifocal patchy nodular consolidative and groundglass opacities within all lobes bilaterally suggestive of bronchopneumonia. 2. No pleural effusion or adenopathy. 3. Gynecomastia. 4. Splenomegaly. 5. Hepatic steatosis. PG Care Time/CCT Total # of Minutes Spent Total Time Spent with Patient: Total time spent is greater than 50% in coordination of care (as documented) at patient's floor/unit and/or counseling patient: (1) Respiratory failure Chronicity: unspecified Respiratory failure complication: hypoxia and hypercapnia Qualified Code(s): J96.91 - Respiratory failure, unspecified with hypoxia; J96.92 - Respiratory failure, unspecified with hypercapnia
[2019-04-07 06:48] LABS: Creatinine Clr Calc Pharmacy 54.9 ml/min; Est GFR (African American) 64.3; Est GFR (Non-African American) 55.5
[2019-04-07 06:53] LABS: Allen Test Pos (Pos); Base Excess ABG 1.2 mEq/L (-9-1.8); HCO3 ABG 26 mmol/L (19-24); Oxygen Saturation ABG 94.5 % (90-95); PCO2 ABG 41 mmHg (35-46); PO2 ABG 75 mm/Hg (80-95); pH ABG 7.42 (7.35-7.45)
[2019-04-07 07:20] LABS: Basophils # (auto) 0.01 K/uL (0-0.2); Basophils % (auto) 0.1 %; Hematocrit (blood only) 35.3 % (42-52); Hemoglobin 11.6 g/dL (14.0-18.0); Immature Granulocytes # (auto) 0.07 K/uL (0.00-0.02); Immature Granulocytes % (auto) 0.6 %; Lymphocytes # (auto) 0.56 K/uL (1.2-3.4); Mean Corpuscular Hemoglobin 29.3 pg (25-34); Mean Corpuscular Hgb Conc 32.9 g/dL (32-36); Mean Corpuscular Volume 89.1 fL (80-100); Mean Platelet Volume 8.8 fL (7.4-10.4); Monocytes # (auto) 0.49 K/uL (0.11-0.59); Monocytes % (auto) 4.4 %; Neutrophils # (auto) 10.06 K/uL (1.4-6.5); Neutrophils % (auto) 89.9 %; Platelet Count 266 K/uL (130-400); RDW Coefficient of Variation 15.4 % (11.5-14.5); RDW Standard Deviation 49.8 fL (36.4-46.3); Red Blood Count 3.96 M/uL (4.7-6.1); White Blood Count 11.19 K/uL (4.8-10.8)
[2019-04-07 07:24] LABS: Albumin Level 2.6 gm/dl (3.4-5.0); BUN Creatinine Ratio 16.7 (10-20); Calcium 9.3 mg/dl (8.5-10.1); Creatinine Clr Calc Pharmacy 54.9 ml/min; Est GFR (African American) 64.3; Est GFR (Non-African American) 55.5
[2019-04-07 07:31] LABS: Albumin Globulin Ratio 0.5 (0.9-2); Bilirubin,Total 0.2 mg/dl (0.2-1); Total Protein 7.6 gm/dl (6.4-8.2)
[2019-04-07] MEDS: INSULIN ASPART 100 UNITS/ML 3 ML PEN SC SCH ×4 (07:42→21:41)
[2019-04-07] MEDS: FLUTICASONE INH SCH (08:31)
[2019-04-07] MEDS: VILANTEROL INH SCH ×2 (08:31→20:15)
[2019-04-07] MEDS: SENNA 8.6 MG TAB PO SCH ×2 (08:32→20:18)
[2019-04-07] MEDS: VENLAFAXINE HCL XR 150 MG CAPXR PO SCH (08:32)
[2019-04-07] MEDS: PANTOprazole 40 MG TAB PO SCH (08:32)
[2019-04-07] MEDS: GABAPENTIN 100 MG CAP PO SCH ×4 (08:33→20:16)
[2019-04-07] MEDS: CHOLECALCIFEROL 1,000 UNITS TAB PO SCH ×2 (08:33→20:16)
[2019-04-07] MEDS: AZITHROMYCIN 250 MG TAB PO SCH (08:33)
[2019-04-07] MEDS: ASPIRIN 81 MG ECTAB PO SCH (08:34)
[2019-04-07] MEDS: FERROUS SULFATE 325 MG TAB PO SCH ×2 (08:34→20:18)
[2019-04-07] MEDS: GABAPENTIN 600 MG TAB PO SCH ×4 (08:34→20:16)
[2019-04-07] MEDS: DOCUSATE SODIUM 100 MG CAP PO SCH ×2 (08:34→20:15)
[2019-04-07] MEDS: ENOXAPARIN INJ 40 MG/0.4 ML SYR SQ SCH (08:35)
[2019-04-07] MEDS: FOLIC ACID 1 MG TAB PO SCH (08:35)
--- NOTE | 2019-04-07 13:15 | Pulmonology Progress Note ---
Date of Service April 07, 2019 Assessment & Plan (1) Acute exacerbation of chronic obstructive pulmonary disease (COPD): Patient appears to be in acute COPD exacerbation possibly secondary to multifocal pneumonia. He is substantially improved today. PCT is 0.38. Continue cefepime and azithromycin for now. Switch to oral prednisone 40 mg daily for 10 days total. Sputum for culture and GS pending. AFB sputum pending as well. I ordered for another sputum today. Continue Acapella flutter device 3-4 times a day for airway clearance as he has evidence of bronchiectasis and inspissated mucous in the airways on CT. Also has diffuse tree-in-bud with nodular changes. ?NTM (ALYSHA). He would also benefit from pulmonary rehab as an outpatient. Morning ABG does not support him needing NIV at the moment. He will need follow- up with the pulmonary clinic after discharge with full PFTs and a 6-minute walk distance. Continue his current home inhalers upon discharge. Continue duo nebs every 4 hours as needed while inpatient. We will continue following with you. (2) Multifocal pneumonia: (3) Acute hypoxemic respiratory failure: Subjective Patient much better today. Eating and sitting up in bed. Able to sit in a chair today. Cough has substantially improved. No chest pain, fevers, chills, nausea or vomiting. Physical Exam Eyes: PERRL, conjunctivae normal, anicteric sclerae ENMT: external ear and nose normal, oropharynx normal Neck: normal visual inspection Respiratory: normal respiratory effort, lungs clear to auscultation Cardiovascular: RRR, no murmur, no edema Gastrointestinal (Abdomen): normal bowel sounds, soft, nontender, no hepatosplenomegaly Musculoskeletal: no cyanosis or clubbing, extremities motor strength 5/5 Skin: no rashes, warm and dry Neurologic: PERRL, EOMI, accommodation nl, no face palsy, no dysarthria Psychiatric: A+Ox3, euthymic affect Lymphatic: no cervical or axillary lymphadenopathy Results & Data Vital Signs (Past 12 Hours) Vital Signs Temp Pulse Pulse Pulse Resp BP Pulse Ox 04/07/19 11:17 92 H 18 91 04/07/19 11:05 97.5 F L 93 H 18 116/65 94 04/07/19 08:00 100 H 04/07/19 07:05 97.7 F 97 H 20 109/58 L 98 04/07/19 06:56 96 H 18 96 04/07/19 03:57 97.5 F L 87 18 104/60 95 04/07/19 02:57 96 H 22 97 PG Care Time/CCT Total # of Minutes Spent Total Time Spent with Patient: Total time spent is greater than 50% in coordination of care (as documented) at patient's floor/unit and/or counseling patient:
--- NOTE | 2019-04-07 17:53 | Hospitalist Progress Note ---
Date of Service April 07, 2019 Assessment & Plan (1) Multifocal pneumonia: Mr. Park is a 58-year-old male with a past medical history of CKD stage III, COPD, liver cirrhosis, hypothyroidism, depression, prediabetes, alcoholic neuropathy and chronic pain syndrome who presents to the emergency department, after being referred from his PCPs office for cough, shortness of breath and hypoxia. Sepsis secondary to multifocal pneumonia/Acute respiratory failure with hypoxia- much improved CT of the chest with severe bullous emphysema with multifocal pneumonia -Chest x-ray revealed advanced emphysema and airspace consolidation in the left mid to lower lung, and right lower lung, as well as left upper lobe indicating multifocal pneumonia High risk for nontuberculous mycobacteria as per pulmonology -Check sputum culture, AFB smear-AFB negative, sputum cx pending -Patient meets criteria for sepsis with tachycardia and tachypnea, with a pulmonary source of infection -Patient's oxygen saturations dropped to 77% on room air in ER, patient was placed on CPAP and has been saturating well since-now weaned to nasal cannula 2 L -Blood cultures drawn and NGTD -Patient received Rocephin and azithromycin in ER, however given history of COPD and presence of multifocal pneumonia, was changed to Zosyn, vancomycin and azithromycin on admission -Pulmonology recommended changing to cefepime and continuing azithromycin, have since discontinued vancomycin given negative MRSA swab -convert from IV steroids to prednisone 40mg daily x 10 day course as per Pulm ABG with hypoxia but no hypercapnia so does not qualify for Trilogy or BiPAP at home - was given IV fluids x2 L-now discontinued -DuoNebs ordered every 4 hours scheduled Chronic kidney disease stage III -Follows with nephrology -Creatinine 1.39 and fairly stable -Avoid nephrotoxic agents COPD-with acute exacerbation -Continue home inhalers -Given severe bullous emphysema and cirrhosis, despite known previous history of alcoholism-question alpha-1 anti-trypsin deficiency-will check in the AM -Needs PFTs and 6-minute walk test as outpatient -prednisone as above Anemia -chronic and stable, related to iron deficiency -Hemoglobin 13.3 on arrival now down to 11.6 likely hemo-dilutional; no gross bleeding -Colonoscopy in August 2016 noted internal hemorrhoids and tubular adenoma, due for repeat colonoscopy in 3 years -Continue home iron supplementation and folic acid Alcoholic cirrhosis -Per review of outpatient records, was previously on the transplant list at [facility], but was discharged from the list due to "low numbers" -Follows with GI Dr. Almodovar every 3-4 months at [facility] -Quit drinking in 2011 -question Alpha-1 AT def as above Prediabetes -Hemoglobin A1c 6.3% in May 2018 Some hyperglycemia here but improved today off IV steroids - continue BSG AC/HS with insulin sliding scale BPH -Held home tamsulosin given hypotension-watch for retention -can restart tonight Depression- stable -Continue home BuSpar and venlafaxine, restart home Remeron -consider converting Effexor to Cymbalta given severe neuropathic pain in lower extremities GERD -Continue home pantoprazole Alcoholic neuropathy/chronic pain-recently titrated off of chronic opioids and is down to 10 mg daily this week for oxycodone -Continue home oxycodone 10 mg daily as needed and gabapentin -Follows with pain management -consider switching to Cymbalta as above-defer to PCP Hypothyroidism-TSH normal in 05/2018 -Continue home levothyroxine CODE STATUS: Full DVT prophylaxis: 40 mg Lovenox SQ daily Disposition: Continued stay on telemetry but could likely downgrade to Meical tomorrow PT/OT evals palced given neuropathy Hopeful for dc to home in the next 1-2 days Will need home O2 (2) COPD exacerbation: (3) Respiratory failure: (4) Acid reflux: (5) Anemia: (6) Benign prostate hyperplasia: (7) Chronic kidney disease, stage III (moderate): (8) Chronic pain syndrome: (9) Cirrhosis, alcoholic: (10) Depression: (11) Hypothyroidism: (12) Insomnia: (13) Neuropathy, alcoholic: (14) Prediabetes: Subjective Much improved. Still coughing up yellow sputum. Feels less SOB. ambulated in room to bathroom in the room. Says his legs are hurting from his neuropathy and is bitter about being taken off opioids recently by [facility] 90s-100s Review of Systems Review of Systems: All systems reviewed & are unremarkable except as noted in HPI & below Physical Exam Constitutional: + thin; no acute distress Eyes: + anicteric sclerae Neck: trachea midline, no thyromegaly Respiratory: normal respiratory effort; no labored breathing and does not use accessory muscles Auscultation: + diminished lung sounds (Throughout but improved air movement today) and + wheezes (exp wheezes scattered); no crackles Cardiovascular: RRR, no murmur, no edema Gastrointestinal (Abdomen): normal bowel sounds, soft, nontender, no hepatosplenomegaly Musculoskeletal: Extremities: extremities normal to inspection; no cyanosis and no clubbing Skin: no rashes, warm and dry Neurologic: moves all extremities and awake; no focal motor deficits Psychiatric: A+Ox3, euthymic affect Results & Data Vital Signs (Past 12 Hours) Vital Signs Temp Pulse Pulse Pulse Resp BP Pulse Ox 04/07/19 16:00 85 04/07/19 15:10 36.7 C 107 H 18 117/70 94 04/07/19 14:30 90 16 96 04/07/19 11:17 92 H 18 91 04/07/19 11:05 36.4 C L 93 H 18 116/65 94 04/07/19 08:00 100 H 04/07/19 07:05 36.5 C 97 H 20 109/58 L 98 04/07/19 06:56 96 H 18 96 Laboratory Results 04/07/19 04/07/19 04/07/19 Range/Units 16:05 11:07 07:40 WBC (4.8-10.8) K/uL RBC (4.7-6.1) M/uL Hgb (14.0-18.0) g/dL Hct (42-52) % MCV (80-100) fL MCH (25-34) pg MCHC (32-36) g/dL RDW Std Deviation (36.4-46.3) fL RDW Coeff of Alix (11.5-14.5) % Plt Count (130-400) K/uL MPV (7.4-10.4) fL Immature Gran % (Auto) % Neut % (Auto) % Lymph % (Auto) % [place] % (Auto) % Eos % (Auto) % Baso % (Auto) % Immature Gran # (Auto) (0.00-0.02) K/uL Neut # (Auto) (1.4-6.5) K/uL Lymph # (Auto) (1.2-3.4) K/uL [place] # (Auto) (0.11-0.59) K/uL Eos # (Auto) (0-0.5) K/uL Baso # (Auto) (0-0.2) K/uL ABG pH ABG pCO2 ABG pO2 ABG HCO3 ABG O2 Saturation ABG Base Excess William Test Barometric Pressure Oxygen Given Sodium (136-145) mmol/L Potassium (3.5-5.1) mmol/L Chloride (98-107) mmol/L Carbon Dioxide (21-32) mmol/L Anion Gap (3-11) BUN (7-18) mg/dl Creatinine (0.6-1.4) mg/dl Est Cr Clr Drug Dosing ml/min Est GFR ( Amer) Est GFR (Non-Af Amer) BUN/Creatinine Ratio (10-20) Glucose (70-99) mg/dl POC Glucose 165 H 129 H 266 H (70-99) Calcium (8.5-10.1) mg/dl Total Bilirubin (0.2-1) mg/dl AST (15-37) U/L ALT (12-78) U/L Alkaline Phosphatase (45-117) U/L Total Protein (6.4-8.2) gm/dl Albumin (3.4-5.0) gm/dl Globulin (2.5-4.0) gm/dl Albumin/Globulin Ratio (0.9-2) 04/07/19 04/07/19 04/07/19 Range/Units 06:23 05:52 05:52 WBC 11.19 H (4.8-10.8) K/uL RBC 3.96 L (4.7-6.1) M/uL Hgb 11.6 L (14.0-18.0) g/dL Hct 35.3 L (42-52) % MCV 89.1 (80-100) fL MCH 29.3 (25-34) pg MCHC 32.9 (32-36) g/dL RDW Std Deviation 49.8 H (36.4-46.3) fL RDW Coeff of Alix 15.4 H (11.5-14.5) % Plt Count 266 (130-400) K/uL MPV 8.8 (7.4-10.4) fL Immature Gran % (Auto) 0.6 % Neut % (Auto) 89.9 % Lymph % (Auto) 5.0 % [place] % (Auto) 4.4 % Eos % (Auto) 0.0 % Baso % (Auto) 0.1 % Immature Gran # (Auto) 0.07 H (0.00-0.02) K/uL Neut # (Auto) 10.06 H (1.4-6.5) K/uL Lymph # (Auto) 0.56 L (1.2-3.4) K/uL [place] # (Auto) 0.49 (0.11-0.59) K/uL Eos # (Auto) 0.00 (0-0.5) K/uL Baso # (Auto) 0.01 (0-0.2) K/uL ABG pH 7.42 ABG pCO2 41 ABG pO2 75 L ABG HCO3 26 H ABG O2 Saturation 94.5 ABG Base Excess 1.2 William Test Pos Barometric Pressure 736.4 Oxygen Given 2L Sodium 141 (136-145) mmol/L Potassium 4.0 (3.5-5.1) mmol/L Chloride 107 (98-107) mmol/L Carbon Dioxide 29 (21-32) mmol/L Anion Gap 4.0 (3-11) BUN 23 H (7-18) mg/dl Creatinine 1.39 (0.6-1.4) mg/dl Est Cr Clr Drug Dosing 54.9 ml/min Est GFR ( Amer) 64.3 Est GFR (Non-Af Amer) 55.5 BUN/Creatinine Ratio 16.7 (10-20) Glucose 164 H (70-99) mg/dl POC Glucose (70-99) Calcium 9.3 (8.5-10.1) mg/dl Total Bilirubin 0.2 D (0.2-1) mg/dl AST 13 L (15-37) U/L ALT 14 (12-78) U/L Alkaline Phosphatase 156 H (45-117) U/L Total Protein 7.6 (6.4-8.2) gm/dl Albumin 2.6 L (3.4-5.0) gm/dl Globulin 5.0 H (2.5-4.0) gm/dl Albumin/Globulin Ratio 0.5 L (0.9-2) 04/07/19 04/07/19 04/06/19 Range/Units 05:50 05:43 20:34 WBC (4.8-10.8) K/uL RBC (4.7-6.1) M/uL Hgb (14.0-18.0) g/dL Hct (42-52) % MCV (80-100) fL MCH (25-34) pg MCHC (32-36) g/dL RDW Std Deviation (36.4-46.3) fL RDW Coeff of Alix (11.5-14.5) % Plt Count (130-400) K/uL MPV (7.4-10.4) fL Immature Gran % (Auto) % Neut % (Auto) % Lymph % (Auto) % [place] % (Auto) % Eos % (Auto) % Baso % (Auto) % Immature Gran # (Auto) (0.00-0.02) K/uL Neut # (Auto) (1.4-6.5) K/uL Lymph # (Auto) (1.2-3.4) K/uL [place] # (Auto) (0.11-0.59) K/uL Eos # (Auto) (0-0.5) K/uL Baso # (Auto) (0-0.2) K/uL ABG pH Cancelled ABG pCO2 Cancelled ABG pO2 Cancelled ABG HCO3 Cancelled ABG O2 Saturation Cancelled ABG Base Excess Cancelled William Test Cancelled Barometric Pressure Cancelled Oxygen Given Cancelled Sodium (136-145) mmol/L Potassium (3.5-5.1) mmol/L Chloride (98-107) mmol/L Carbon Dioxide (21-32) mmol/L Anion Gap (3-11) BUN (7-18) mg/dl Creatinine 1.39 (0.6-1.4) mg/dl Est Cr Clr Drug Dosing 54.9 ml/min Est GFR ( Amer) 64.3 Est GFR (Non-Af Amer) 55.5 BUN/Creatinine Ratio (10-20) Glucose (70-99) mg/dl POC Glucose 190 H (70-99) Calcium (8.5-10.1) mg/dl Total Bilirubin (0.2-1) mg/dl AST (15-37) U/L ALT (12-78) U/L Alkaline Phosphatase (45-117) U/L Total Protein (6.4-8.2) gm/dl Albumin (3.4-5.0) gm/dl Globulin (2.5-4.0) gm/dl Albumin/Globulin Ratio (0.9-2) PG Care Time/CCT Total # of Minutes Spent Total Time Spent with Patient: Total time spent is greater than 50% in coordination of care (as documented) at patient's floor/unit and/or counseling patient: (1) Respiratory failure Chronicity: unspecified Respiratory failure complication: hypoxia and hypercapnia Qualified Code(s): J96.91 - Respiratory failure, unspecified with hypoxia; J96.92 - Respiratory failure, unspecified with hypercapnia
[2019-04-07] MEDS: UMECLIDINIUM BRM INH SCH (20:15)
[2019-04-07] MEDS: TAMSULOSIN HCL 0.4 MG CAP PO SCH (20:17)
[2019-04-07] MEDS: MIRTAZAPINE TAB 15 MG TAB PO SCH (20:17)
[2019-04-07] MEDS: OXYCODONE HCL IR 5 MG TAB (IMMEDIATE RELEASE) PO PRN (21:39)
[2019-04-08] MEDS: ALBUT/IPRATROP 3MG/0.5MG NEB 3 ML VIAL NEB SCH ×6 (02:58→23:08)
[2019-04-08] MEDS: LEVOTHYROXINE SODIUM 25 MCG TABLET PO SCH (05:59)
[2019-04-08 06:02] LABS: Basophils # (auto) 0.02 K/uL (0-0.2); Basophils % (auto) 0.2 %; Hematocrit (blood only) 37.4 % (42-52); Hemoglobin 12.5 g/dL (14.0-18.0); Immature Granulocytes # (auto) 0.08 K/uL (0.00-0.02); Immature Granulocytes % (auto) 0.6 %; Lymphocytes # (auto) 1.27 K/uL (1.2-3.4); Lymphocytes % (auto) 9.8 %; Mean Corpuscular Hemoglobin 29.6 pg (25-34); Mean Corpuscular Hgb Conc 33.4 g/dL (32-36); Mean Corpuscular Volume 88.6 fL (80-100); Mean Platelet Volume 8.7 fL (7.4-10.4); Monocytes # (auto) 0.79 K/uL (0.11-0.59); Monocytes % (auto) 6.1 %; Neutrophils # (auto) 10.74 K/uL (1.4-6.5); Neutrophils % (auto) 83.3 %; Platelet Count 270 K/uL (130-400); RDW Coefficient of Variation 15.7 % (11.5-14.5); RDW Standard Deviation 50.8 fL (36.4-46.3); Red Blood Count 4.22 M/uL (4.7-6.1)
[2019-04-08 06:30] LABS: BUN Creatinine Ratio 19.9 (10-20); Calcium 9.3 mg/dl (8.5-10.1); Creatinine Clr Calc Pharmacy 56.4 ml/min; Est GFR (African American) 67.2; Potassium 3.9 mmol/L (3.5-5.1)
[2019-04-08] MEDS: CEFEPIME 2,000 MG in SYRINGE 7.5 ML IV SCH ×2 (07:54→20:34)
[2019-04-08] MEDS: INSULIN ASPART 100 UNITS/ML 3 ML PEN SC SCH ×4 (07:57→21:00)
[2019-04-08] MEDS: VENLAFAXINE HCL XR 150 MG CAPXR PO SCH (08:44)
[2019-04-08] MEDS: FLUTICASONE INH SCH (08:44)
[2019-04-08] MEDS: PANTOprazole 40 MG TAB PO SCH (08:44)
[2019-04-08] MEDS: VILANTEROL INH SCH ×2 (08:44→20:27)
[2019-04-08] MEDS: GABAPENTIN 600 MG TAB PO SCH ×4 (08:45→20:29)
[2019-04-08] MEDS: SENNA 8.6 MG TAB PO SCH ×2 (08:45→20:30)
[2019-04-08] MEDS: GABAPENTIN 100 MG CAP PO SCH ×4 (08:45→20:29)
[2019-04-08] MEDS: predniSONE 20 MG TAB PO SCH (08:46)
[2019-04-08] MEDS: FOLIC ACID 1 MG TAB PO SCH (08:46)
[2019-04-08] MEDS: ASPIRIN 81 MG ECTAB PO SCH (08:46)
[2019-04-08] MEDS: CHOLECALCIFEROL 1,000 UNITS TAB PO SCH ×2 (08:46→20:31)
[2019-04-08] MEDS: DOCUSATE SODIUM 100 MG CAP PO SCH ×2 (08:47→20:33)
[2019-04-08] MEDS: ENOXAPARIN INJ 40 MG/0.4 ML SYR SQ SCH (08:47)
[2019-04-08] MEDS: FERROUS SULFATE 325 MG TAB PO SCH ×2 (08:47→20:28)
[2019-04-08] MEDS: AZITHROMYCIN 250 MG TAB PO SCH (08:47)
--- NOTE | 2019-04-08 11:49 | Hospitalist Progress Note ---
Date of Service April 08, 2019 Assessment & Plan (1) Multifocal pneumonia: Mr. Park is a 58-year-old male with a past medical history of CKD stage III, COPD, liver cirrhosis, hypothyroidism, depression, prediabetes, alcoholic neuropathy and chronic pain syndrome who presents to the emergency department, after being referred from his PCPs office for cough, shortness of breath and hypoxia. Sepsis secondary to multifocal pneumonia/Acute respiratory failure with hypoxia- much improved Sputum culture growing Streptococcus pneumoniae-sensitivities pending CT of the chest with severe bullous emphysema with multifocal pneumonia -Chest x-ray revealed advanced emphysema and airspace consolidation in the left mid to lower lung, and right lower lung, as well as left upper lobe indicating multifocal pneumonia High risk for nontuberculous mycobacteria as per pulmonology AFB smear is negative -Patient meets criteria for sepsis with tachycardia and tachypnea, with a pulmonary source of infection -Patient's oxygen saturations dropped to 77% on room air in ER, patient was placed on CPAP and has been saturating well since-now weaned to nasal cannula 2 L -Blood cultures drawn and NGTD -Patient received Rocephin and azithromycin in ER, however given history of COPD and presence of multifocal pneumonia, was changed to Zosyn, vancomycin and azithromycin on admission -Pulmonology recommended changing to cefepime and continuing azithromycin, have since discontinued vancomycin given negative MRSA swab -Now continues on prednisone x10-day course as per pulmonary -Follow-up on sensitivities of Streptococcus pneumoniae and narrowed on antibiotics after that ABG with hypoxia but no hypercapnia so does not qualify for Trilogy or BiPAP at home - was given IV fluids x2 L-now discontinued -DuoNebs ordered every 4 hours scheduled Chronic kidney disease stage III -Follows with nephrology -Creatinine 1.39 and fairly stable -Avoid nephrotoxic agents COPD-with acute exacerbation-much improved -Continue home inhalers -Given severe bullous emphysema and cirrhosis, despite known previous history of alcoholism-question alpha-1 anti-trypsin deficiency-will check in the AM -Needs PFTs and 6-minute walk test as outpatient -prednisone course as above Anemia -chronic and stable, related to iron deficiency -Hemoglobin 13.3 on arrival now down to 12.5 likely hemo-dilutional; no gross b leeding -Colonoscopy in August 2016 noted internal hemorrhoids and tubular adenoma, due for repeat colonoscopy in 3 years -Continue home iron supplementation and folic acid Alcoholic cirrhosis -Per review of outpatient records, was previously on the transplant list at [facility], but was discharged from the list due to "low numbers" -Follows with GI Dr. Almodovar every 3-4 months at [facility] -Quit drinking in 2011 -question Alpha-1 AT def as above -Here with mildly elevated alkaline phosphatase but otherwise LFTs are normal Prediabetes -Hemoglobin A1c 6.3% in May 2018 Some hyperglycemia here but improved today off IV steroids - continue BSG AC/HS with insulin sliding scale BPH -Held home tamsulosin given hypotension initially -Has now restarted tamsulosin and blood pressures acceptable Depression- stable -Continue home BuSpar and venlafaxine, restart home Remeron -consider converting Effexor to Cymbalta given severe neuropathic pain in lower extremities GERD -Continue home pantoprazole Alcoholic neuropathy/chronic pain-recently titrated off of chronic opioids and is down to 10 mg daily this week for oxycodone -Continue home oxycodone 10 mg daily as needed and gabapentin -Follows with pain management -consider switching to Cymbalta as above-defer to PCP Hypothyroidism-TSH normal in 05/2018 -Continue home levothyroxine 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 but not as bad on the left -Question if he has some sort of autoimmune disorder given the cirrhosis at a young age, severe bullous emphysema, dermatitis of the hands, and significant neuropathy -Would recommend seeing a esthetician/spa coordinator as an outpatient -Start triamcinolone cream to the right hand twice daily CODE STATUS: Full DVT prophylaxis: 40 mg Lovenox SQ daily Disposition: Continued stay on telemetry due to sinus tachycardia and continued tenuous pulmonary status PT/OT evals placed given neuropathy Hopeful for dc to home in the next 1-2 days Will need home O2 with two-step oxygen test on the day of discharge (2) COPD exacerbation: (3) Respiratory failure: (4) Acid reflux: (5) Anemia: (6) Benign prostate hyperplasia: (7) Chronic kidney disease, stage III (moderate): (8) Chronic pain syndrome: (9) Cirrhosis, alcoholic: (10) Depression: (11) Hypothyroidism: (12) Insomnia: (13) Neuropathy, alcoholic: (14) Prediabetes: (15) Hand dermatitis: Subjective Patient reports overall feeling much better. He still coughing up yellow sputum, no hemoptysis. Denies chest pain. He is tachycardic with minimal exertion. He has not worked for physical therapy yet today. Denies nausea or abdominal pain. He is eating well. Nurse tried him off of oxygen at rest and he was 88% but became mildly tachycardic. He gets really bad restless legs at nighttime which the oxycodone helps with. Telemetry with normal sinus rhythm and sinus tachycardia with rates in the 90s to 130s, some PVCs Review of Systems Review of Systems: All systems reviewed & are unremarkable except as noted in HPI & below (Right hand with cracked and dry skin for many many years, has failed multiple creams) Physical Exam Constitutional: + thin; no acute distress Eyes: + anicteric sclerae ENMT: external ear and nose normal, oropharynx normal Neck: trachea midline, no thyromegaly Respiratory: normal respiratory effort; no labored breathing and does not use accessory muscles Auscultation: + diminished lung sounds (Throughout but improved air movement today) and + wheezes (exp wheezes scattered); no crackles Cardiovascular: Rate/Rhythm: regular rhythm and + tachycardic Heart Sounds: no murmur Extremities: no edema Gastrointestinal (Abdomen): normal bowel sounds, soft, nontender, no hepatosplenomegaly Musculoskeletal: Extremities: extremities normal to inspection; no cyanosis and no clubbing Skin: + lichenification (Right palm and fingers with severely dry and cracked skin, some scabs on fingertips) Neurologic: moves all extremities and awake; no focal motor deficits Psychiatric: A+Ox3, euthymic affect Results & Data Vital Signs (Past 12 Hours) Vital Signs Temp Pulse Pulse Resp BP Pulse Ox 04/08/19 11:10 103 H 18 93 04/08/19 08:00 36.9 C 76 111 H 24 107/72 91 04/08/19 07:00 103 H 18 97 04/08/19 04:02 36.4 C L 84 18 112/67 94 04/08/19 02:59 108 H 14 94 04/08/19 00:19 36.4 C L 87 19 115/67 93 04/07/19 23:59 99 H Laboratory Results 04/08/19 04/08/19 04/08/19 Range/Units 11:42 07:45 05:49 WBC (4.8-10.8) K/uL RBC (4.7-6.1) M/uL Hgb (14.0-18.0) g/dL Hct (42-52) % MCV (80-100) fL MCH (25-34) pg MCHC (32-36) g/dL RDW Std Deviation (36.4-46.3) fL RDW Coeff of Alix (11.5-14.5) % Plt Count (130-400) K/uL MPV (7.4-10.4) fL Immature Gran % (Auto) % Neut % (Auto) % Lymph % (Auto) % [place] % (Auto) % Eos % (Auto) % Baso % (Auto) % Immature Gran # (Auto) (0.00-0.02) K/uL Neut # (Auto) (1.4-6.5) K/uL Lymph # (Auto) (1.2-3.4) K/uL [place] # (Auto) (0.11-0.59) K/uL Eos # (Auto) (0-0.5) K/uL Baso # (Auto) (0-0.2) K/uL Sodium 141 (136-145) mmol/L Potassium 3.9 (3.5-5.1) mmol/L Chloride 107 (98-107) mmol/L Carbon Dioxide 29 (21-32) mmol/L Anion Gap 5.0 (3-11) BUN 27 H (7-18) mg/dl Creatinine 1.34 (0.6-1.4) mg/dl Est Cr Clr Drug Dosing 56.4 ml/min Est GFR ( Amer) 67.2 Est GFR (Non-Af Amer) 58.0 BUN/Creatinine Ratio 19.9 (10-20) Glucose 112 H (70-99) mg/dl POC Glucose 195 H 121 H (70-99) Calcium 9.3 (8.5-10.1) mg/dl 04/08/19 04/07/19 04/07/19 Range/Units 05:49 20:30 16:05 WBC 12.90 H (4.8-10.8) K/uL RBC 4.22 L (4.7-6.1) M/uL Hgb 12.5 L (14.0-18.0) g/dL Hct 37.4 L (42-52) % MCV 88.6 (80-100) fL MCH 29.6 (25-34) pg MCHC 33.4 (32-36) g/dL RDW Std Deviation 50.8 H (36.4-46.3) fL RDW Coeff of Alix 15.7 H (11.5-14.5) % Plt Count 270 (130-400) K/uL MPV 8.7 (7.4-10.4) fL Immature Gran % (Auto) 0.6 % Neut % (Auto) 83.3 % Lymph % (Auto) 9.8 % [place] % (Auto) 6.1 % Eos % (Auto) 0.0 % Baso % (Auto) 0.2 % Immature Gran # (Auto) 0.08 H (0.00-0.02) K/uL Neut # (Auto) 10.74 H (1.4-6.5) K/uL Lymph # (Auto) 1.27 (1.2-3.4) K/uL [place] # (Auto) 0.79 H (0.11-0.59) K/uL Eos # (Auto) 0.00 (0-0.5) K/uL Baso # (Auto) 0.02 (0-0.2) K/uL Sodium (136-145) mmol/L Potassium (3.5-5.1) mmol/L Chloride (98-107) mmol/L Carbon Dioxide (21-32) mmol/L Anion Gap (3-11) BUN (7-18) mg/dl Creatinine (0.6-1.4) mg/dl Est Cr Clr Drug Dosing ml/min Est GFR ( Amer) Est GFR (Non-Af Amer) BUN/Creatinine Ratio (10-20) Glucose (70-99) mg/dl POC Glucose 276 H 165 H (70-99) Calcium (8.5-10.1) mg/dl Sputum culture-growing Streptococcus pneumoniae PG Care Time/CCT Total # of Minutes Spent Total Time Spent with Patient: Total time spent is greater than 50% in coordination of care (as documented) at patient's floor/unit and/or counseling patient: (1) Respiratory failure Chronicity: unspecified Respiratory failure complication: hypoxia and hypercapnia Qualified Code(s): J96.91 - Respiratory failure, unspecified with hypoxia; J96.92 - Respiratory failure, unspecified with hypercapnia
[2019-04-08] MEDS: TRIAMCINOLONE ACET 0.025% CR 15 GM TUBE EXT SCH ×2 (13:51→20:29)
[2019-04-08] MEDS: UMECLIDINIUM BRM INH SCH (20:27)
[2019-04-08] MEDS: TAMSULOSIN HCL 0.4 MG CAP PO SCH (20:28)
[2019-04-08] MEDS: MIRTAZAPINE TAB 15 MG TAB PO SCH (20:30)
[2019-04-08] MEDS: OXYCODONE HCL IR 5 MG TAB (IMMEDIATE RELEASE) PO PRN (21:39)
[2019-04-09] MEDS: ALBUT/IPRATROP 3MG/0.5MG NEB 3 ML VIAL NEB SCH ×3 (03:01→11:13)
[2019-04-09 05:56] LABS: Basophils # (auto) 0.01 K/uL (0-0.2); Basophils % (auto) 0.1 %; Eosinophils # (auto) 0.02 K/uL (0-0.5); Eosinophils % (auto) 0.2 %; Hematocrit (blood only) 39.4 % (42-52); Hemoglobin 13.1 g/dL (14.0-18.0); Immature Granulocytes # (auto) 0.16 K/uL (0.00-0.02); Immature Granulocytes % (auto) 1.4 %; Lymphocytes # (auto) 2.12 K/uL (1.2-3.4); Lymphocytes % (auto) 18.2 %; Mean Corpuscular Hemoglobin 29.1 pg (25-34); Mean Corpuscular Hgb Conc 33.2 g/dL (32-36); Mean Corpuscular Volume 87.6 fL (80-100); Mean Platelet Volume 8.6 fL (7.4-10.4); Monocytes # (auto) 0.97 K/uL (0.11-0.59); Monocytes % (auto) 8.3 %; Neutrophils # (auto) 8.38 K/uL (1.4-6.5); Neutrophils % (auto) 71.8 %; Platelet Count 301 K/uL (130-400); RDW Coefficient of Variation 15.5 % (11.5-14.5); RDW Standard Deviation 50.2 fL (36.4-46.3); White Blood Count 11.66 K/uL (4.8-10.8)
[2019-04-09] MEDS: LEVOTHYROXINE SODIUM 25 MCG TABLET PO SCH (06:14)
[2019-04-09 06:28] LABS: Alanine Aminotransferase 20 U/L (12-78); Albumin Level 2.7 gm/dl (3.4-5.0); Aspartate Aminotransferase 15 U/L (15-37); BUN Creatinine Ratio 19.7 (10-20); Bilirubin Direct < 0.1 mg/dl (0-0.2); Blood Urea Nitrogen 24 mg/dl (7-18); Calcium 9.3 mg/dl (8.5-10.1); Carbon Dioxide 32 mmol/L (21-32); Chloride 103 mmol/L (98-107); Creatinine Clr Calc Pharmacy 62.7 ml/min; Est GFR (African American) 77.6; Est GFR (Non-African American) 66.9; Glucose 94 mg/dl (70-99); Sodium 141 mmol/L (136-145)
[2019-04-09 06:31] LABS: Alkaline Phosphatase 148 U/L (45-117); Bilirubin,Total 0.2 mg/dl (0.2-1); Total Protein 7.6 gm/dl (6.4-8.2)
[2019-04-09 07:16] VITALS: BP 105/71; TEMP 98.2
[2019-04-09] MEDS: CEFEPIME 2,000 MG in SYRINGE 7.5 ML IV SCH (07:25)
[2019-04-09] MEDS: INSULIN ASPART 100 UNITS/ML 3 ML PEN SC SCH ×2 (08:16→11:45)
[2019-04-09] MEDS: VILANTEROL INH SCH (08:16)
[2019-04-09] MEDS: FLUTICASONE INH SCH (08:16)
[2019-04-09] MEDS: ENOXAPARIN INJ 40 MG/0.4 ML SYR SQ SCH (08:18)
[2019-04-09] MEDS: AZITHROMYCIN 250 MG TAB PO SCH (08:19)
[2019-04-09] MEDS: predniSONE 20 MG TAB PO SCH (08:19)
[2019-04-09] MEDS: ASPIRIN 81 MG ECTAB PO SCH (08:19)
[2019-04-09] MEDS: FOLIC ACID 1 MG TAB PO SCH (08:19)
[2019-04-09] MEDS: SENNA 8.6 MG TAB PO SCH (08:20)
[2019-04-09] MEDS: CHOLECALCIFEROL 1,000 UNITS TAB PO SCH (08:20)
[2019-04-09] MEDS: GABAPENTIN 100 MG CAP PO SCH ×2 (08:20→12:59)
[2019-04-09] MEDS: DOCUSATE SODIUM 100 MG CAP PO SCH (08:20)
[2019-04-09] MEDS: PANTOprazole 40 MG TAB PO SCH (08:20)
[2019-04-09] MEDS: VENLAFAXINE HCL XR 150 MG CAPXR PO SCH (08:20)
[2019-04-09] MEDS: TRIAMCINOLONE ACET 0.025% CR 15 GM TUBE EXT SCH (08:21)
[2019-04-09] MEDS: GABAPENTIN 600 MG TAB PO SCH ×2 (08:22→12:59)
[2019-04-09] MEDS: FERROUS SULFATE 325 MG TAB PO SCH (08:22)
[2019-04-09] MEDS ORDERED: cefTRIAXone SODIUM 1,000 MG in DEXTROSE 5% 50 ML IV SCH (10:00)
[2019-04-09] MEDS ORDERED: TIOTROPIUM BROMIDE 5 PUFF/90 MCG INH INH SCH (11:00)
--- NOTE | 2019-04-09 12:21 | Discharge Summary ---
Date of Service April 09, 2019 Admission HPI Per Admitting Provider Mr. Park is a 58-year-old male with a past medical history of CKD stage III, COPD, liver cirrhosis, hypothyroidism, depression, prediabetes, alcoholic neuropathy and chronic pain syndrome who presents to the emergency department, after being referred from his PCPs office for cough, shortness of breath and hypoxia. He presented to his PCPs office earlier today due to productive cough, shortness of breath, chest tightness for 1 week. He states that his entire family has had cold-like symptoms recently, however their symptoms have all improved, whereas he has been worsening. He states that he has a history of COPD, and has been using his inhalers at home as prescribed. He reports also trying his nebulizer treatments at home without relief in symptoms. He denies fever or chills, but reports feeling significantly short of breath, particularly with holding a conversation. He denies any chest pain. He does not normally use oxygen at home. He states that he has not been hospitalized for pneumonia before. He has no prior cardiac history, including an [place] or congestive heart failure. His primary care provider checked his oxygen level in the office, and found it was dropping to 83% during conversation. They administered a DuoNeb treatment and oxygen in the office, and his saturations improved to 92%. They recommended that he come to the ER for evaluation. Principal Diagnosis Streptococcus pneumoniae pneumonia, COPD Exacerbation Discharge Exam Constitutional + thin; no acute distress Eyes + anicteric sclerae ENMT external ear and nose normal, oropharynx normal Neck trachea midline, no thyromegaly Respiratory normal respiratory effort; no labored breathing and does not use accessory muscles Auscultation: + diminished lung sounds (Throughout but improved air movement today); no crackles and no wheezes Cardiovascular Rate/Rhythm: regular rhythm and + tachycardic Heart Sounds: no murmur Extremities: no edema Gastrointestinal (Abdomen) normal bowel sounds, soft, nontender, no hepatosplenomegaly Musculoskeletal Extremities: extremities normal to inspection; no cyanosis and no clubbing Skin no rashes, warm and dry + lichenification (Right palm and fingers with severely dry and cracked skin, some scabs on fingertips) Neurologic moves all extremities and awake; no focal motor deficits Psychiatric A+Ox3, euthymic affect Discharge Data Allergies Allergy/AdvReac Type Severity Reaction Status Date / Time pregabalin Allergy Unknown ANAPHYLAXIS Verified 04/05/19 18:17 Consultations 04/05/19 21:23 ED Decision to Admit Stat 04/06/19 08:44 Consult Pulmonology Routine Ordered Studies 04/06/19 08:42 CT chest wo con Urgent CXR Hospital Course (1) Multifocal pneumonia: Mr. Park is a 58-year-old male with a past medical history of CKD stage III, COPD, liver cirrhosis, hypothyroidism, depression, prediabetes, alcoholic neuropathy and chronic pain syndrome who presents to the emergency department, after being referred from his PCPs office for cough, shortness of breath and hypoxia. Sepsis secondary to multifocal pneumonia/Acute respiratory failure with hypoxia- much improved, ambulating, coughing up sputum, less respiratory distress Sputum culture growing Streptococcus pneumoniae-resistant to PCN and Bactrim, but sensitive to Augmentin CT of the chest with severe bullous emphysema with multifocal pneumonia -Chest x-ray revealed advanced emphysema and airspace consolidation in the left mid to lower lung, and right lower lung, as well as left upper lobe indicating multifocal pneumonia High risk for nontuberculous mycobacteria as per pulmonology AFB smear is negative -Patient meets criteria for sepsis with tachycardia and tachypnea, with a pulmonary source of infection -Patient's oxygen saturations dropped to 77% on room air in ER, patient was placed on CPAP and has been saturating well since-now weaned to nasal cannula 2 L continuously with 2 step walking test -home O2 arranged upon dscharge -Blood cultures drawn and NGTD -Patient received Rocephin and azithromycin in ER, however given history of COPD and presence of multifocal pneumonia, was changed to Zosyn, vancomycin and azithromycin on admission -Pulmonology recommended changing to cefepime and continuing azithromycin, have since discontinued vancomycin given negative MRSA swab -will now dc to home on Augmentin to finish out a 7 day course -should have follow up imaging to ensure resolution of infiltrates -Now continues on prednisone x10-day course as per pulmonary - ABG with hypoxia but no hypercapnia so does not qualify for Trilogy or BiPAP at home - was given IV fluids x2 L-now discontinued -DuoNebs ordered every 4 hours scheduled Chronic kidney disease stage III -Follows with nephrology -Creatinine 1.39 and fairly stable -Avoid nephrotoxic agents COPD-with acute exacerbation-much improved -Continue home Breo, but was also on Anoro which is redundant--> switch to Spiri va for now and dc Anoro--> should get Rx for Incruse as outpt -Given severe bullous emphysema and cirrhosis, despite known previous history of alcoholism-question alpha-1 anti-trypsin deficiency-lab drawn and will need follow up after discharge -Needs PFTs and 6-minute walk test as outpatient -prednisone course as above Anemia -chronic and stable, related to iron deficiency -Hemoglobin 13.3 on arrival and stable -Colonoscopy in August 2016 noted internal hemorrhoids and tubular adenoma, due for repeat colonoscopy in 3 years -Continue home iron supplementation and folic acid Alcoholic cirrhosis -Per review of outpatient records, was previously on the transplant list at [facility], but was discharged from the list due to "low numbers" -Follows with GI Dr. Almodovar every 3-4 months at [facility] -Quit drinking in 2011 -question Alpha-1 AT def as above -Here with mildly elevated alkaline phosphatase but otherwise LFTs are normal Prediabetes -Hemoglobin A1c 6.3% in May 2018 Some hyperglycemia here but improved today off IV steroids - continue BSG AC/HS with insulin sliding scale BPH -Held home tamsulosin given hypotension initially -Has now restarted tamsulosin and blood pressures acceptable Depression- stable -Continue home BuSpar and venlafaxine, restart home Remeron -consider converting Effexor to Cymbalta given severe neuropathic pain in lower extremities GERD -Continue home pantoprazole Alcoholic neuropathy/chronic pain-recently titrated off of chronic opioids and is down to 10 mg daily this week for oxycodone -Continue home oxycodone 10 mg daily as needed and gabapentin -Follows with pain management -consider switching to Cymbalta as above-defer to PCP Hypothyroidism-TSH normal in 05/2018 -Continue home levothyroxine Right hand dermatitis-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 Not concerning, no chest pain, should improve with time and being off steroids CODE STATUS: Full DVT prophylaxis: 40 mg Lovenox SQ daily Disposition: stable for dc to home PT/OT evals placed given neuropathy-stable for dc to home O2 delievered to hospital prior to discharge (2) COPD exacerbation: (3) Respiratory failure: (4) Acid reflux: (5) Anemia: (6) Benign prostate hyperplasia: (7) Chronic kidney disease, stage III (moderate): (8) Chronic pain syndrome: (9) Cirrhosis, alcoholic: (10) Depression: (11) Hypothyroidism: (12) Insomnia: (13) Neuropathy, alcoholic: (14) Prediabetes: (15) Hand dermatitis: Total Time Total Time Spent Total Time Spent (In Minutes): >30 min Total Time Includes: Examination of the Patient, Discharge Planning, Medication Reconciliation and Communication With Other Providers (Pulmonology Dr. Cody) Discharge Plan Discharge Items Patient Disposition: Home - Home Health Services Reason For Visit: SEPSIS, MULTIFOCAL PNEUMONIA, COPD EXACERBATION Discharge Diagnosis: Pneumonia, COPD Exacerbation Condition on Discharge: Fair Activity: As commented below Lifting: Gradually increase as tolerated Bathing: No limitations Exercise/Sports: Gradually increase as tolerated Non-emergency contact: Primary Care Provider and Recreation Counselor Call non-emergency contact if: you have any medication questions, your symptoms worsen, your pain is not controlled, your pain is worsening, your pain is unusual for you, your pain is concerning for you, you have a fever and your temperature is above 101 Follow-up/Referrals: Michelle Campos DO [Primary Care Provider] - 04/14/19 1:00 pm (You have been scheduled for a hospital follow-up appointment with NOAH Gastelum at Dr. Campos's office on 04/14/2019 at 1:00pm. Please call their office if this date or time does not work for you or if you have any questions #[phone].) Kolby Salguero MD [Physician] - 04/18/19 11:00 am (You have an appointment for pulmonology follow-up with Dr. Kolby Salguero on 04/18/2019 at 11:00am. Please call their office if this date and time does not work for you or if you have any questions #[phone].) Diet: Regular Addtl Attending Provider Instructions: Please finish out the course of antibiotics and prednisone as prescribed. You should follow up with your PCP and the Recreation Counselor as arranged for you. Pending Studies at Discharge: No Stand-Alone Forms: My [facility], Smoking Cessation Medications and DC Order Prescriptions: New Spiriva with HandiHaler 18 mcg Capsule, W/Inhalation Device 1 cap inhalation QAM Qty: 14 RF: 0 prednisone 20 mg Tablet 40 mg PO DAILY Qty: 14 RF: 0 triamcinolone acetonide 0.025 % Cream 1 applic EXT BID Qty: 15 RF: 0 amoxicillin-pot clavulanate [Augmentin] 875-125 mg tablet 1 tab PO BID Qty: 8 RF: 0 Continued gabapentin 600 mg tablet 600 mg PO QID Qty: 120 RF: 5 pantoprazole 40 mg tablet,delayed release (DR/EC) 40 mg PO DAILY Qty: 30 RF: 5 folic acid 1 mg tablet 1 mg PO DAILY Qty: 30 RF: 5 venlafaxine 150 mg capsule,extended release 24hr 150 mg PO QAM Qty: 30 RF: 5 mirtazapine 30 mg tablet 30 mg PO HS Qty: 30 RF: 5 tamsulosin 0.4 mg capsule 0.4 mg PO DAILY Qty: 30 RF: 5 gabapentin 100 mg capsule 100 mg PO QID Qty: 120 RF: 5 docusate sodium 100 mg capsule 100 mg PO BID Qty: 60 RF: 5 aspirin 81 mg tablet,delayed release (DR/EC) 81 mg PO DAILY Qty: 30 RF: 0 buspirone 10 mg tablet 10 mg PO TID Qty: 90 RF: 1 cholecalciferol (vitamin D3) 3,000 unit tablet 3,000 unit PO BID Qty: 60 RF: 0 ferrous sulfate 325 mg (65 mg iron) tablet 325 mg PO BID Qty: 60 RF: 5 Breo Ellipta 100-25 mcg/dose blister with device 1 inh INHALATION QAM Qty: 60 RF: 1 ipratropium-albuterol 0.5 mg-3 mg(2.5 mg base)/3 mL solution for nebulization 3 ml inhalation Q6H PRN (Reason: Shortness Of Breath Or Wheezing) Qty: 3 RF: 1 levothyroxine 25 mcg tablet 25 mcg PO DAILY Qty: 30 RF: 5 sennosides 8.6 mg tablet 8.6 mg PO BID Qty: 60 RF: 5 Changed oxycodone 10 mg tablet 10 mg PO DAILY PRN (Reason: Pain) Qty: 30 RF: 0 Discontinued hydroxyzine HCl 25 mg tablet 25 mg PO TID Qty: 90 RF: 5 Anoro Ellipta 62.5-25 mcg/actuation blister with device 1 inh INHALATION QPM Qty: 60 RF: 0 Discharge Orders: Discharge Order (Routine); Ordered 04/09/19 Ordered By: Jaye Castellanos Admission Data Admit Date/Time: 04/05/19 22:38 Attending Provider: Jaye Castellanos Admit Provider: Sandra Clarke Primary Care Provider: Michelle Campos Other Providers: Vincent Fulton ; Zackery Mota
[2019-04-09 13:49] VITALS: PULSE 96; O2SAT 92
== END 2019-04-09 14:53 | disposition home or self-care (01) | DRG 871 ==
LOC: ED 19:38 → 2E 22:38 → SUATTDRO 22:38 → 2E 23:22

== ENCOUNTER 2021-10-08 19:39 | Inpatient (IN) ==
[2021-10-08] MEDS ORDERED: dexAMETHasone**PF** 10 MG/ML VIAL IV ONE (19:55)
[2021-10-08] MEDS ORDERED: PIPERACILLIN/TAZOBACTAM 4.5 GM/120 ML BAG IV ONE (20:01)
[2021-10-08] MEDS ORDERED: PIPERACILL/TAZOBAC CONSULT ACTIVE PRN (20:01)
--- NOTE | 2021-10-08 20:05 | XRay Report ---
SINGLE VIEW CHEST CLINICAL HISTORY: Sepsis. Dyspnea. FINDINGS: An AP, portable, upright chest radiograph is obtained. No prior studies are available for c omparison at the time of dictation. The examination is degraded by portable technique and apical lord otic positioning. The cardiomediastinal silhouette is unremarkable. There is severe emphysema. Bullou s change is noted at the apices, left greater than right. Foci of parenchymal scarring are seen throu ghout both lungs. There is dense masslike consolidation in the left upper lobe. Patchy consolidation is seen throughout the left lower lung and in the right midlung. No large pleural effusion or pneumot horax is seen. The skeletal structures are osteopenic. The bony thorax is grossly intact. Arthritic c hanges seen in the left shoulder. IMPRESSION: 1. Severe emphysema. 2. Multifocal airspace consolidation is seen throughout both lungs, most confluent in the left upper lung. The appearance is typical for multifocal pneumonia. Radiographic follow-up to resolution is rec ommended. ACT 112: Negative or not required by law. Electronically signed by: Thee De La Cruz M.D. 10/08/2021 8:03 PM
[2021-10-08] MEDS ORDERED: VANCOMYCIN CONSULT ACTIVE PRN (20:07)
[2021-10-08] MEDS ORDERED: VANCOMYCIN HCL 1,250 MG in SODIUM CHLORIDE 0.9% 500 ML IV ONE (20:07)
[2021-10-08] MEDS ORDERED: SODIUM CHLORIDE 0.9% 1000ML 1,000 ML IV ONE ×3 (20:08→21:31)
--- NOTE | 2021-10-08 20:13 | Emergency Department Note ---
Impression & Plan Pneumonia, Acute exacerbation of chronic obstructive pulmonary disease, Hypoxia, Respiratory failure, Acute hypotension, Hypomagnesemia ED Provider Note NAME: JEANNETTE WU AGE: 60 SEX: M : 1960 ARRIVES VIA: Ambulance INFORMANT: Patient, EMS ED PROVIDER(S): Hu Valero DO CHIEF COMPLAINT: Shortness of breath HPI: The patient is a 60-year-old male who presented to the emergency department for an evaluation of shortness of breath. The patient states that shortness of breath began approximately 4 days ago. He did have a colonoscopy on Wednesday. He states that that went well but he started having worsening symptoms of shortness of breath over the course of the last 24 hours. He states he has had a nonproductive cough. He states that shortness of breath is severe and worse with any exertion. He called 911. The patient presented to the emergency department by a ALS. He was given multiple DuoNeb treatments prior to arrival. He was found to be severely hypoxic. The patient states he continues to use t obacco products. He denies having any recent vomiting. He states he has had no abdominal pain today. He denies having any lower extremity swelling. He has had no recent traveling. ROS: See above HPI for pertinent positives & negatives. A total of 10 systems reviewed and were otherwise negative. PAST MEDICAL HISTORY: See Below PAST SURGICAL HISTORY: See Below FAMILY HISTORY: See Below SOCIAL HISTORY: See Below HOME MEDICATIONS: See Below ALLERGIES: See Below VITALS: See Below PHYSICAL EXAMINATION: GENERAL: The patient is awake and alert. The patient is very anxious appearing appears to be in severe distress. EYES: The conjunctivae are clear. The pupils are round and reactive. EARS, NOSE, MOUTH AND THROAT: The nose is without any evidence of any deformity. NECK: The neck is nontender and supple. RESPIRATORY: Diminished breath sounds are noted in the entire right lung field. There were rales in the left upper lung field. Severe tachypnea and conversat ional dyspnea was noted with retractions. CARDIOVASCULAR: Tachycardic rate with regular rhythm was noted. There is no definite murmur. GASTROINTESTINAL: The abdomen is soft. Abdomen is nontender. MUSCULOSKELETAL/EXTREMITIES: There is no evidence of gross deformity full range of motion is noted in the hips and shoulders. SKIN: There is no obvious evidence of any rash. There are no petechiae, pallor or cyanosis noted. NEUROLOGIC: Patient is awake alert and oriented x3 MEDICAL DECISION MAKING: The patient is a 60-year-old male who presented to the emergency department for an evaluation of difficulty breathing. The patient was found to be hypoxic and was placed on supplemental oxygen. He also received multiple bronchodilator treatments prior to arrival. He arrived in significant respiratory distress. He was treated with multiple fluid boluses in the emergency department. He was treated with IV antibiotics. He was also treated with IV steroids and he was placed on BiPAP. I discussed the patient's laboratory and radiographic studies with him. Slowly his condition improved. [facility] also [facility] have agreed to evaluate the patient in the emergency department for further management and disposition. Triage Nursing notes reviewed. Prior medical records reviewed Vital Signs: reviewed and remarkable for hypotension and tachycardia and hypoxia. Differential diagnosis: Reactive airway disease, pneumonia, pneumothorax, COPD, CHF, infections, cardiac ischemia, pulmonary embolism, musculoskeletal, gastrointestinal, as well as other pathologies. ER treatment provided: See below Diagnostics interpreted by me: ECG: EKG was obtained in the emergency department. My interpretation is sinus tachycardia at 136 bpm. There was no PVCs noted. Nonspecific ST segment abnormalities were noted. This was compared to tracing from June 10, 2021. There is an increase in the rate otherwise no changes were noted. Cardiac Monitoring: An order was placed for continuous cardiac monitoring. The monitor shows a rate of 100 bpm with sinus rhythm. Laboratory studies: As stated above and show below. Imaging studies: See below Consultation(s): I discussed this case with Dr. Perez [facility] ED COURSE: Procedures: none PDMP:reviewed and no issues Critical Care: I have personally spent greater than 55 minutes of critical care time in the direct management of this patient. This includes bedside care, interpretation of diagnostic studies, and testing, discussion with consultants, patient, and family members, and other required patient management activities. This 55 minutes is in excess of all separately billable procedures. Past Med/Surg History Medical History Acid reflux Stable and controlled per patient Anemia No recent blood transfusion or iron infusions Anxiety Benign prostate hyperplasia Charcot's joint of foot, non-diabetic Chronic kidney disease, stage III (moderate) Chronic obstructive pulmonary disease Well controlled per pt No oxygen since 05/2019 Chronic pain syndrome Multifactorial in nature- LDD, neuropathy, OA, RA Cirrhosis, alcoholic HX OF (LAST ETOH 10 YEARS AGO) Follows with GI routinely Depression Flexion deformity of hand Unable to fully extend 4th and 5th digits of left hand History of stroke 2011 - NO PHYSICAL RESIDUAL EFFECTS, MEMORY PROBLEM FOLLOWING - HAS RECOVERED SOME BUT NOT ENTIRELY Hypothyroidism Hypoxemic respiratory failure, chronic resolved per pt Lumbar disc herniation with radiculopathy Neuropathy, alcoholic Fair control On gabapentin Peripheral arterial disease Stable per 03/2021 PCP note- no significant blockage with LE angiogram in 12/2020 Portal hypertension Rheumatoid arthritis Follows with rheum - [facility] T2DM (type 2 diabetes mellitus) NIDDM > diet controlled Glucose stable Surgical History H/O hand surgery (02/07/21) R index, middle, ring and small finger MCP joint silicone implant arthroplasties w/ extensor tendon centralization H/O oral surgery ALL TEETH OUT History of esophagogastroduodenoscopy (EGD) Hx of surgical procedure (12/2020) Angio Extremity > bilat legs Hx of umbilical hernia repair 11/14/12 S/P epidural steroid injection Status post left hip replacement (01/2018) Status post right hip replacement (10/2018) Status post-operative repair of closed fracture of left hip (2012) IM nail placement L hip Family History Father Aneurysm Hx of CABG Family history of cardiac pacemaker Coronary heart disease Cardiac pacemaker Mother Family history of cardiac pacemaker Diabetes Hypertension Cardiac pacemaker Brother Diabetes Other Family history non-contributory Denies family history of Colon cancer Ovarian cancer Prostate cancer Myocardial infarction Breast cancer Social History Smoking Status: Current every day smoker Tobacco Type: Cigarettes Age Started Using Tobacco: 13; packs per day: 0.25; Cigarettes Per Day: 10; Second Hand Exposure: No; Do You Dip or Chew Tobacco: No; Hx Alcohol Use: Yes Alcohol type: beer Hx Substance Use: Yes Last Used Substance: Unknown Last Used Substance Other:: 2 days ago Substance Use Type Other:: couple times a week Preferred Language: [place] Islander Communication Ability: Effective Visual Impairment: Limited Hearing Ability: Normal Canal [employer] Required: No Beliefs That Will Affect Care: None marital status: marital status details: 1 son, 3 daughters Current Living Situation: Spouse Current Living Situation Comment: spouse, 1 daughter, grandson every other weekend current occupational status: unemployed and disabled How many Children do You have: 4 Feels Safe at Home: Yes Safety Concerns: Feels Safe At This Time Childhood Exposure to Second-Hand Smoke: Yes caffeine: Yes during the past year weight has: remained stable Dental Care, Regularly: No Physical Activity Frequency: Does not Exercise Seatbelt Use: always Sunscreen Use: Yes Assistive Devices: Cane, Denture - Upper, Denture - Lower, Glasses and Walker Allergies Allergies Allergy/AdvReac Type Severity Reaction Status Date / Time pregabalin Allergy Severe ANAPHYLAXIS Verified 10/08/21 21:25 Home Meds Home Medications Medication Instructions Recorded Confirmed aspirin 81 mg tablet,delayed 81 mg PO QAM 05/19/21 10/08/21 release cholecalciferol (vitamin D3) 125 5,000 unit PO QAM 05/19/21 10/08/21 mcg (5,000 unit) tablet folic acid 1 mg tablet 1 mg PO QAM 05/19/21 10/08/21 Previous Rx's Medication Instructions Recorded ipratropium 0.5 mg-albuterol 3 mg 3 ml INHALATION Q6H PRN #3 ml 05/19/19 (2.5 mg base)/3 mL nebulization soln fluticasone furoate 100 1 inh INHALATION QAM #60 ea 04/29/20 mcg-vilanterol 25 mcg/dose inhalation powder (Breo Ellipta) tiotropium bromide 18 mcg capsule 1 cap INHALATION QAM #30 puffs 07/02/20 with inhalation device (Spiriva with HandiHaler) venlafaxine 150 mg 150 mg PO QAM #90 cap 09/27/20 capsule,extended release 24 hr buspirone 15 mg tablet 15 mg PO TID #90 tab 04/17/21 gabapentin 600 mg tablet 600 mg PO QID #120 tab 06/02/21 levothyroxine 25 mcg tablet 25 mcg PO QAM #90 tab 06/27/21 gabapentin 100 mg capsule 100 mg PO QID #360 cap 06/30/21 pantoprazole 40 mg tablet,delayed 40 mg PO QPM #90 tab 06/30/21 release sennosides 8.6 mg tablet 8.6 mg PO BID #60 tab 07/01/21 docusate sodium 100 mg capsule 100 mg PO BID #180 cap 07/24/21 rosuvastatin 5 mg tablet (Crestor) 5 mg PO PM #90 tab 07/24/21 carbamazepine 100 mg chewable 100 mg PO BID #60 tab 08/19/21 tablet ferrous sulfate 325 mg (65 mg 325 mg PO BID #60 tab 08/29/21 iron) tablet methotrexate sodium 2.5 mg tablet 15 mg PO WK 30 Days #180 tab 09/22/21 oxycodone 10 mg tablet 10 mg PO TID PRN #90 tab 09/22/21 tamsulosin 0.4 mg capsule 0.4 mg PO PM #90 cap 09/22/21 mirtazapine 30 mg tablet 30 mg PO HS #90 tab 09/26/21 venlafaxine 75 mg capsule,extended 75 mg PO QAM #90 cap 09/26/21 release 24 hr Results & Data (ED) Vital Signs Vital Signs - 24 hr 10/08/21 19:53 10/08/21 20:02 10/08/21 20:10 Temperature 36.9 C Temperature Source Oral Pulse Rate 135 H 127 H Pulse Rate [Right] 123 H Pulse Rhythm [Right] Regular Pulse Strength [Right] Normal Respiratory Rate 26 H 37 H 30 H Respiratory Effort / Characteristics Non-Labored Accessory Muscle Use Spontaneous Labored Short of Breath Respiratory Depth Normal Respiratory Pattern Regular Tachypnea Tachypnea Blood Pressure 80/51 L Blood Pressure [Right Arm] 88/56 L Blood Pressure Mean 60 Blood Pressure Mean [Right Arm] 66 Blood Pressure Position Sitting Blood Pressure Position [Right Arm] Sitting Pulse Oximetry 95 93 94 Oxygen Delivery Method Room Air Oxymask Oxygen Flow Rate 8 Fraction of Inspired Oxygen 40 SaO2/FiO2 Ratio Sepsis Recent Fever Within 48 Hours No Sepsis New/Unexplained Change in Mental Status No Sepsis Action Taken by Nursing Physician Notified 10/08/21 20:16 10/08/21 21:31 10/08/21 22:04 Temperature Temperature Source Pulse Rate 132 H Pulse Rate [Right] 121 H Pulse Rhythm [Right] Regular Pulse Strength [Right] Normal Respiratory Rate 25 H 23 Respiratory Effort / Characteristics Labored Non-Labored Spontaneous Labored Respiratory Depth Deep Normal Respiratory Pattern Tachypnea Blood Pressure Blood Pressure [Right Arm] 96/54 L Blood Pressure Mean Blood Pressure Mean [Right Arm] 68 Blood Pressure Position Blood Pressure Position [Right Arm] Sitting Pulse Oximetry 96 Oxygen Delivery Method BiPAP Oxygen Flow Rate Fraction of Inspired Oxygen SaO2/FiO2 Ratio Sepsis Recent Fever Within 48 Hours Sepsis New/Unexplained Change in Mental Status Sepsis Action Taken by Nursing 10/08/21 22:39 Temperature Temperature Source Pulse Rate Pulse Rate [Right] 100 H Pulse Rhythm [Right] Regular Pulse Strength [Right] Normal Respiratory Rate 23 Respiratory Effort / Characteristics Spontaneous Labored Respiratory Depth Normal Respiratory Pattern Blood Pressure Blood Pressure [Right Arm] 91/54 L Blood Pressure Mean Blood Pressure Mean [Right Arm] 66 Blood Pressure Position Blood Pressure Position [Right Arm] Sitting Pulse Oximetry 97 Oxygen Delivery Method BiPAP Oxygen Flow Rate Fraction of Inspired Oxygen 40 SaO2/FiO2 Ratio 242 Sepsis Recent Fever Within 48 Hours Sepsis New/Unexplained Change in Mental Status Sepsis Action Taken by [facility] Medications Current Medication List: was personally reviewed by me Laboratory Data Attestation: I reviewed the patient's lab results. Result diagrams: 10/09/21 07:31 10/09/21 07:31 Lab Results 10/08/21 10/08/21 10/08/21 Range/Units 20:05 20:05 20:05 WBC 3.32 L (4.8-10.8) K/uL RBC 3.35 L (4.7-6.1) M/uL Hgb 10.7 L (14.0-18.0) g/dL POC Hgb (14.0-18.0) g/dl Hct 32.6 L (42-52) % POC Hct (42-52) % MCV 97.3 (80-100) fL MCH 31.9 (25-34) pg MCHC 32.8 (32-36) g/dL RDW Std Deviation 59.8 H (36.4-46.3) fL RDW Coeff of Alix 17.1 H (11.5-14.5) % Plt Count 387 (130-400) K/uL MPV 10.8 H (7.4-10.4) fL Immature Gran % (Auto) 1.2 % Neut % (Auto) 82.9 % Lymph % (Auto) 8.1 % Cooke % (Auto) 7.5 % Eos % (Auto) 0.0 % Baso % (Auto) 0.3 % Neut # (Auto) 2.75 (1.4-6.5) K/uL Lymph # (Auto) 0.27 L (1.2-3.4) K/uL Cooke # (Auto) 0.25 (0.11-0.59) K/uL Eos # (Auto) 0.00 (0-0.5) K/uL Baso # (Auto) 0.01 (0-0.2) K/uL Immature Gran # (Auto) 0.04 H (0.00-0.02) K/uL Toxic Granulation 2+ Dohle Bodies 3+ Giant Platelets 1+ ESR > 130 H (0-20) mm/hr PT 13.3 H (9.0-12.0) Seconds INR 1.3 H (0.9-1.1) APTT 33.8 H (21.0-31.0) Seconds PTT Ratio 1.2 VBG pH (7.36-7.41) VBG pCO2 (38-50) mmHg VBG pO2 mmHg VBG HCO3 mmol/L VBG O2 Saturation % VBG Base Excess mEq/L Barometric Pressure mm/Hg POC Sodium (135-144) mmol/L Sodium (136-145) mmol/L POC Potassium (3.3-5.0) mmol/L Potassium (3.5-5.1) mmol/L POC Chloride (101-112) mmol/L Chloride (98-107) mmol/L Carbon Dioxide (21-32) mmol/L POC Total CO2 (24-31) mmol/L Anion Gap (3-11) POC Anion Gap (16-25) mmol/L POC BUN (7-18) mg/dl BUN (6-23) mg/dl Creatinine (0.6-1.4) mg/dl POC Creatinine (0.6-1.3) mg/dl Est Cr Clr Drug Dosing Est GFR ( Amer) ml/min Est GFR (Non-Af Amer) ml/min BUN/Creatinine Ratio (10-20) Glucose (70-99(Fasting)) mg/dl POC Glucose (other) (70-99) mg/dl Lactate (0.4-2.0) mmol/L Calcium (8.5-10.1) mg/dl POC Ioniz Calcium Jean Carlos (1.12-1.32) mmol/l Magnesium (1.7-2.4) mg/dl Total Bilirubin (0.2-1.0) mg/dl AST (13-39) U/L ALT (7-52) U/L Alkaline Phosphatase (34-104) U/L Troponin I High Sens (0-20) pg/ml C-Reactive Protein (0-0.5) mg/dl Total Protein (6.0-8.3) gm/dl Albumin (3.4-5.0) gm/dl Globulin (2.5-4.0) gm/dl Albumin/Globulin Ratio (0.9-2) Procalcitonin (0-0.5) ng/ml TSH (0.300-4.500) uIu/ml Random Cortisol mcg/dl Adenovirus (PCR) (NotDetected) B. pertussis DNA (PCR) (NotDetected) B.parapertussis DNA PCR (NotDetected) C. pneumoniae DNA (PCR) (NotDetected) Coronavirus OC43 (PCR) (NotDetected) Coronavirus HKU1 (PCR) (NotDetected) Coronavirus 229E (PCR) (NotDetected) SARS-CoV-2 (PCR) (NotDetected) Coronavirus NL63 (PCR) (NotDetected) Human Metapneumovir PCR (NotDetected) Influenza Type A (PCR) (NotDetected) Influenza Type B (PCR) (NotDetected) M. pneumoniae (PCR) (NotDetected) Parainfluenza 1 (PCR) (NotDetected) Parainfluenza 2 (PCR) (NotDetected) Parainfluenza 3 (PCR) (NotDetected) Parainfluenza 4 (PCR) (NotDetected) RSV (PCR) (NotDetected) Entero/Rhino (PCR) (NotDetected) 10/08/21 10/08/21 10/08/21 Range/Units 20:05 20:05 20:05 WBC (4.8-10.8) K/uL RBC (4.7-6.1) M/uL Hgb (14.0-18.0) g/dL POC Hgb (14.0-18.0) g/dl Hct (42-52) % POC Hct (42-52) % MCV (80-100) fL MCH (25-34) pg MCHC (32-36) g/dL RDW Std Deviation (36.4-46.3) fL RDW Coeff of Alix (11.5-14.5) % Plt Count (130-400) K/uL MPV (7.4-10.4) fL Immature Gran % (Auto) % Neut % (Auto) % Lymph % (Auto) % Cooke % (Auto) % Eos % (Auto) % Baso % (Auto) % Neut # (Auto) (1.4-6.5) K/uL Lymph # (Auto) (1.2-3.4) K/uL Cooke # (Auto) (0.11-0.59) K/uL Eos # (Auto) (0-0.5) K/uL Baso # (Auto) (0-0.2) K/uL Immature Gran # (Auto) (0.00-0.02) K/uL Toxic Granulation Dohle Bodies Giant Platelets ESR (0-20) mm/hr PT (9.0-12.0) Seconds INR (0.9-1.1) APTT (21.0-31.0) Seconds PTT Ratio VBG pH (7.36-7.41) VBG pCO2 (38-50) mmHg VBG pO2 mmHg VBG HCO3 mmol/L VBG O2 Saturation % VBG Base Excess mEq/L Barometric Pressure mm/Hg POC Sodium (135-144) mmol/L Sodium 130 L (136-145) mmol/L POC Potassium (3.3-5.0) mmol/L Potassium 4.0 (3.5-5.1) mmol/L POC Chloride (101-112) mmol/L Chloride 94 L (98-107) mmol/L Carbon Dioxide 25 (21-32) mmol/L POC Total CO2 (24-31) mmol/L Anion Gap 11 (3-11) POC Anion Gap (16-25) mmol/L POC BUN (7-18) mg/dl BUN 29 H (6-23) mg/dl Creatinine 1.41 H (0.6-1.4) mg/dl POC Creatinine (0.6-1.3) mg/dl Est Cr Clr Drug Dosing Not Reportable Est GFR ( Amer) 62.3 ml/min Est GFR (Non-Af Amer) 53.8 ml/min BUN/Creatinine Ratio 20.6 H (10-20) Glucose 123 H (70-99(Fasting)) mg/dl POC Glucose (other) (70-99) mg/dl Lactate 1.8 (0.4-2.0) mmol/L Calcium 8.5 (8.5-10.1) mg/dl POC Ioniz Calcium Jean Carlos (1.12-1.32) mmol/l Magnesium 1.6 L (1.7-2.4) mg/dl Total Bilirubin 0.9 (0.2-1.0) mg/dl AST 14 (13-39) U/L ALT 8 (7-52) U/L Alkaline Phosphatase 105 H (34-104) U/L Troponin I High Sens 23.6 H (0-20) pg/ml C-Reactive Protein 36.71 H (0-0.5) mg/dl Total Protein 6.5 (6.0-8.3) gm/dl Albumin 2.7 L (3.4-5.0) gm/dl Globulin 3.8 (2.5-4.0) gm/dl Albumin/Globulin Ratio 0.7 L (0.9-2) Procalcitonin 9.42 H (0-0.5) ng/ml TSH (0.300-4.500) uIu/ml Random Cortisol mcg/dl Adenovirus (PCR) (NotDetected) B. pertussis DNA (PCR) (NotDetected) B.parapertussis DNA PCR (NotDetected) C. pneumoniae DNA (PCR) (NotDetected) Coronavirus OC43 (PCR) (NotDetected) Coronavirus HKU1 (PCR) (NotDetected) Coronavirus 229E (PCR) (NotDetected) SARS-CoV-2 (PCR) (NotDetected) Coronavirus NL63 (PCR) (NotDetected) Human Metapneumovir PCR (NotDetected) Influenza Type A (PCR) (NotDetected) Influenza Type B (PCR) (NotDetected) M. pneumoniae (PCR) (NotDetected) Parainfluenza 1 (PCR) (NotDetected) Parainfluenza 2 (PCR) (NotDetected) Parainfluenza 3 (PCR) (NotDetected) Parainfluenza 4 (PCR) (NotDetected) RSV (PCR) (NotDetected) Entero/Rhino (PCR) (NotDetected) 10/08/21 10/08/21 10/08/21 Range/Units 20:05 20:05 20:05 WBC (4.8-10.8) K/uL RBC (4.7-6.1) M/uL Hgb (14.0-18.0) g/dL POC Hgb (14.0-18.0) g/dl Hct (42-52) % POC Hct (42-52) % MCV (80-100) fL MCH (25-34) pg MCHC (32-36) g/dL RDW Std Deviation (36.4-46.3) fL RDW Coeff of Alix (11.5-14.5) % Plt Count (130-400) K/uL MPV (7.4-10.4) fL Immature Gran % (Auto) % Neut % (Auto) % Lymph % (Auto) % Cooke % (Auto) % Eos % (Auto) % Baso % (Auto) % Neut # (Auto) (1.4-6.5) K/uL Lymph # (Auto) (1.2-3.4) K/uL Cooke # (Auto) (0.11-0.59) K/uL Eos # (Auto) (0-0.5) K/uL Baso # (Auto) (0-0.2) K/uL Immature Gran # (Auto) (0.00-0.02) K/uL Toxic Granulation Dohle Bodies Giant Platelets ESR (0-20) mm/hr PT (9.0-12.0) Seconds INR (0.9-1.1) APTT (21.0-31.0) Seconds PTT Ratio VBG pH 7.32 L (7.36-7.41) VBG pCO2 51 H (38-50) mmHg VBG pO2 46 mmHg VBG HCO3 26 mmol/L VBG O2 Saturation 75.6 % VBG Base Excess -0.8 mEq/L Barometric Pressure 737.4 mm/Hg POC Sodium (135-144) mmol/L Sodium (136-145) mmol/L POC Potassium (3.3-5.0) mmol/L Potassium (3.5-5.1) mmol/L POC Chloride (101-112) mmol/L Chloride (98-107) mmol/L Carbon Dioxide (21-32) mmol/L POC Total CO2 (24-31) mmol/L Anion Gap (3-11) POC Anion Gap (16-25) mmol/L POC BUN (7-18) mg/dl BUN (6-23) mg/dl Creatinine (0.6-1.4) mg/dl POC Creatinine (0.6-1.3) mg/dl Est Cr Clr Drug Dosing Est GFR ( Amer) ml/min Est GFR (Non-Af Amer) ml/min BUN/Creatinine Ratio (10-20) Glucose (70-99(Fasting)) mg/dl POC Glucose (other) (70-99) mg/dl Lactate (0.4-2.0) mmol/L Calcium (8.5-10.1) mg/dl POC Ioniz Calcium Jean Carlos (1.12-1.32) mmol/l Magnesium (1.7-2.4) mg/dl Total Bilirubin (0.2-1.0) mg/dl AST (13-39) U/L ALT (7-52) U/L Alkaline Phosphatase (34-104) U/L Troponin I High Sens (0-20) pg/ml C-Reactive Protein (0-0.5) mg/dl Total Protein (6.0-8.3) gm/dl Albumin (3.4-5.0) gm/dl Globulin (2.5-4.0) gm/dl Albumin/Globulin Ratio (0.9-2) Procalcitonin (0-0.5) ng/ml TSH 0.544 (0.300-4.500) uIu/ml Random Cortisol 41.76 mcg/dl Adenovirus (PCR) (NotDetected) B. pertussis DNA (PCR) (NotDetected) B.parapertussis DNA PCR (NotDetected) C. pneumoniae DNA (PCR) (NotDetected) Coronavirus OC43 (PCR) (NotDetected) Coronavirus HKU1 (PCR) (NotDetected) Coronavirus 229E (PCR) (NotDetected) SARS-CoV-2 (PCR) (NotDetected) Coronavirus NL63 (PCR) (NotDetected) Human Metapneumovir PCR (NotDetected) Influenza Type A (PCR) (NotDetected) Influenza Type B (PCR) (NotDetected) M. pneumoniae (PCR) (NotDetected) Parainfluenza 1 (PCR) (NotDetected) Parainfluenza 2 (PCR) (NotDetected) Parainfluenza 3 (PCR) (NotDetected) Parainfluenza 4 (PCR) (NotDetected) RSV (PCR) (NotDetected) Entero/Rhino (PCR) (NotDetected) 10/08/21 10/08/21 Range/Units 20:14 20:15 WBC (4.8-10.8) K/uL RBC (4.7-6.1) M/uL Hgb (14.0-18.0) g/dL POC Hgb 11.6 L (14.0-18.0) g/dl Hct (42-52) % POC Hct 34 L (42-52) % MCV (80-100) fL MCH (25-34) pg MCHC (32-36) g/dL RDW Std Deviation (36.4-46.3) fL RDW Coeff of Alix (11.5-14.5) % Plt Count (130-400) K/uL MPV (7.4-10.4) fL Immature Gran % (Auto) % Neut % (Auto) % Lymph % (Auto) % Cooke % (Auto) % Eos % (Auto) % Baso % (Auto) % Neut # (Auto) (1.4-6.5) K/uL Lymph # (Auto) (1.2-3.4) K/uL Cooke # (Auto) (0.11-0.59) K/uL Eos # (Auto) (0-0.5) K/uL Baso # (Auto) (0-0.2) K/uL Immature Gran # (Auto) (0.00-0.02) K/uL Toxic Granulation Dohle Bodies Giant Platelets ESR (0-20) mm/hr PT (9.0-12.0) Seconds INR (0.9-1.1) APTT (21.0-31.0) Seconds PTT Ratio VBG pH (7.36-7.41) VBG pCO2 (38-50) mmHg VBG pO2 mmHg VBG HCO3 mmol/L VBG O2 Saturation % VBG Base Excess mEq/L Barometric Pressure mm/Hg POC Sodium 131 L (135-144) mmol/L Sodium (136-145) mmol/L POC Potassium 3.9 (3.3-5.0) mmol/L Potassium (3.5-5.1) mmol/L POC Chloride 94 L (101-112) mmol/L Chloride (98-107) mmol/L Carbon Dioxide (21-32) mmol/L POC Total CO2 25 (24-31) mmol/L Anion Gap (3-11) POC Anion Gap 17.0 (16-25) mmol/L POC BUN 27 H (7-18) mg/dl BUN (6-23) mg/dl Creatinine (0.6-1.4) mg/dl POC Creatinine 1.4 H (0.6-1.3) mg/dl Est Cr Clr Drug Dosing Est GFR ( Amer) ml/min Est GFR (Non-Af Amer) ml/min BUN/Creatinine Ratio (10-20) Glucose (70-99(Fasting)) mg/dl POC Glucose (other) 130 H (70-99) mg/dl Lactate (0.4-2.0) mmol/L Calcium (8.5-10.1) mg/dl POC Ioniz Calcium Jean Carlos 1.13 (1.12-1.32) mmol/l Magnesium (1.7-2.4) mg/dl Total Bilirubin (0.2-1.0) mg/dl AST (13-39) U/L ALT (7-52) U/L Alkaline Phosphatase (34-104) U/L Troponin I High Sens (0-20) pg/ml C-Reactive Protein (0-0.5) mg/dl Total Protein (6.0-8.3) gm/dl Albumin (3.4-5.0) gm/dl Globulin (2.5-4.0) gm/dl Albumin/Globulin Ratio (0.9-2) Procalcitonin (0-0.5) ng/ml TSH (0.300-4.500) uIu/ml Random Cortisol mcg/dl Adenovirus (PCR) Not Detected (NotDetected) B. pertussis DNA (PCR) Not Detected (NotDetected) B.parapertussis DNA PCR Not Detected (NotDetected) C. pneumoniae DNA (PCR) Not Detected (NotDetected) Coronavirus OC43 (PCR) Not Detected (NotDetected) Coronavirus HKU1 (PCR) Not Detected (NotDetected) Coronavirus 229E (PCR) Not Detected (NotDetected) SARS-CoV-2 (PCR) Not Detected (NotDetected) Coronavirus NL63 (PCR) Not Detected (NotDetected) Human Metapneumovir PCR Not Detected (NotDetected) Influenza Type A (PCR) Not Detected (NotDetected) Influenza Type B (PCR) Not Detected (NotDetected) M. pneumoniae (PCR) Not Detected (NotDetected) Parainfluenza 1 (PCR) Not Detected (NotDetected) Parainfluenza 2 (PCR) Not Detected (NotDetected) Parainfluenza 3 (PCR) Not Detected (NotDetected) Parainfluenza 4 (PCR) Not Detected (NotDetected) RSV (PCR) Not Detected (NotDetected) Entero/Rhino (PCR) Not Detected (NotDetected) Administered Medications Albuterol (Albut/Ipratrop 3mg/0.5mg Neb 3 Ml Vial) 3 ml INH Q6R [facility] Stop: 11/08/21 00:59 Last Admin: 10/09/21 06:44 Dose: 3 ml Documented by: [id number] Admin: 10/09/21 02:18 Dose: 3 ml Documented by: [id number] Aspirin (Aspirin 81 Mg Ectab) 81 mg PO QAM [facility] Stop: 11/08/21 08:59 Last Admin: 10/09/21 08:30 Dose: 81 mg Documented by: [id number] Budesonide (Budesonide 0.25 Mg/2 Ml Vial (Pulmicort)) 0.25 mg NEB BIDR [facility] Stop: 11/08/21 12:30 Last Admin: 10/09/21 07:18 Dose: 2 ml Documented by: [id number] Admin: 10/09/21 00:35 Dose: 0.25 ml Documented by: [id number] Carbamazepine (Carbamazepine 100 Mg Chew Tab) 100 mg PO BID [facility]AC Stop: 11/08/21 08:59 Last Admin: 10/09/21 08:29 Dose: 100 mg Documented by: [id number] Docusate Sodium (Docusate Sodium 100 Mg Cap) 100 mg PO BID ISSAC Stop: 11/08/21 08:59 Last Admin: 10/09/21 08:29 Dose: 100 mg Documented by: [id number] Gabapentin (Gabapentin 100 Mg Cap) 100 mg PO QID [facility] Stop: 11/08/21 08:59 Last Admin: 10/09/21 08:28 Dose: 100 mg Documented by: [id number] Gabapentin (Gabapentin 600 Mg Tab) 600 mg PO QID [facility] Stop: 11/08/21 08:59 Last Admin: 10/09/21 08:28 Dose: 600 mg Documented by: [id number] Guaifenesin (Guaifenesin 600 Mg Tabcr) 1,200 mg PO BID [facility]AC Stop: 11/08/21 08:59 Last Admin: 10/09/21 08:31 Dose: 1,200 mg Documented by: [id number] Heparin Sodium (Porcine) (Heparin Sod 5,000 Unit/0.5 Ml Vial) 5,000 units SQ Q12 [facility] Stop: 11/08/21 08:59 Last Admin: 10/09/21 08:27 Dose: 5,000 units Documented by: [id number] Azithromycin 500 mg/ Dextrose 255 mls @ 125 mls/hr IV Q24H [facility]AC Stop: 10/11/21 22:49 Last Infusion: 10/09/21 02:50 Dose: 0 mls/hr Documented by: [id number] Admin: 10/08/21 23:43 Dose: 125 mls/hr Documented by: [id number] Parenteral Electrolytes (Plasma-Lyte A) 1,000 mls @ 80 mls/hr IV .[id number] ONE Stop: 10/09/21 13:38 Last Admin: 10/09/21 01:56 Dose: 80 mls/hr Documented by: [id number] Methylprednisolone 40 mg/ (Syringe) 0.64 mls @ 1.5 mls/min IV Q8H ISSAC Stop: 11/08/21 08:59 Last Admin: 10/09/21 08:34 Dose: 1.5 mls/min Documented by: [id number] Norepinephrine Bitartrate (Levophed/D5w) 8 mg in 508 mls @ 12.04 mls/hr IV .Q24H ISSAC; Protocol Stop: 11/08/21 01:29 Last Titration: 10/09/21 06:54 Dose: 0.05 mcg/kg/min, 12 mls/hr Documented by: [id number] Cosigned by: [id number] Admin: 10/09/21 01:59 Dose: 0.05 mcg/kg/min, 12 mls/hr Documented by: [id number] Cosigned by: [id number] Piperacillin Sod/Tazobactam (Sod 4.5 gm/ Dextrose) 120 mls @ 30 mls/hr IV Q8H [facility]; Protocol Stop: 10/16/21 01:59 Last Infusion: 10/09/21 06:40 Dose: 0 mls/hr Documented by: [id number] Admin: 10/09/21 02:40 Dose: 30 mls/hr Documented by: [id number] Pantoprazole Sodium 40 mg/ (Syringe) 10 mls @ 5 mls/min IV BID [facility] Stop: 11/08/21 08:59 Last Admin: 10/09/21 08:25 Dose: 5 mls/min Documented by: [id number] Albumin Human (Albumin 5%) 250 mls @ 500 mls/hr IV TODAY@0830,0900 [facility] Stop: 10/12/21 12:00 Last Admin: 10/09/21 08:59 Dose: 500 mls/hr Documented by: [id number] Insulin Aspart (Insulin Aspart Per Unit) 0 units SC Q4 [facility]; Protocol Stop: 11/08/21 08:29 Last Admin: 10/09/21 08:58 Dose: 3 units Documented by: [id number] Cosigned by: [id number] Insulin Human NPH (Insulin Human Nph) 25 units SC QAM [facility] Stop: 11/08/21 08:59 Last Admin: 10/09/21 08:50 Dose: 25 units Documented by: [id number] Cosigned by: [id number] Levothyroxine Sodium (Levothyroxine Sodium 25 Mcg Tablet) 25 mcg PO DAILYBB [facility] Stop: 11/08/21 06:29 Last Admin: 10/09/21 06:15 Dose: Not Given Documented by: [id number] Oxycodone HCl (Oxycodone Hcl Ir 5 Mg Tab (Immediate Release)) 10 mg PO TID PRN PRN Reason: pain Stop: 10/23/21 00:38 Last Admin: 10/09/21 09:06 Dose: 10 mg Documented by: [id number] Sennosides (Senna 8.6 Mg Tab) 8.6 mg PO BID [facility] Stop: 11/08/21 08:59 Last Admin: 10/09/21 08:30 Dose: 8.6 mg Documented by: [id number] Umeclidinium [place] (Umeclidinium [place] 62.5mcg/Blister 7 Puffs/Inhaler) 1 puffs [facility] Stop: 11/08/21 08:59 Last Admin: 10/09/21 08:30 Dose: 1 puffs Documented by: [id number] Venlafaxine HCl (Venlafaxine Hcl Xr 75 Mg Capxr) 75 mg PO [facility] Stop: 11/08/21 08:59 Last Admin: 10/09/21 08:27 Dose: 75 mg Documented by: [id number] Venlafaxine HCl (Venlafaxine Hcl Xr 150 Mg Capxr) 150 mg PO [facility] Stop: 11/08/21 08:59 Last Admin: 10/09/21 08:27 Dose: 150 mg Documented by: [id number] Discontinued Medications Dexamethasone Sodium Phosphate (DexamethasonePf 10 Mg/Ml Vial) 10 mg IV NOW ONE Stop: 10/08/21 19:56 Last Admin: 10/08/21 20:08 Dose: 10 mg Documented by: [id number] Piperacillin Sod/Tazobactam Sod (Zosyn) 4.5 gm in 120 mls @ 240 mls/hr IV NOW O NE Stop: 10/08/21 20:30 Last Infusion: 10/08/21 21:30 Dose: 0 mls/hr Documented by: [id number] Admin: 10/08/21 20:24 Dose: 240 mls/hr Documented by: [id number] Vancomycin HCl 1,250 mg/ (Sodium Chloride) 525 mls @ 200 mls/hr IV NOW ONE Stop: 10/08/21 22:44 Last Infusion: 10/08/21 23:42 Dose: 0 mls/hr Documented by: [id number] Admin: 10/08/21 21:08 Dose: 200 mls/hr Documented by: [id number] Sodium Chloride (Nss 1000ml) 1,000 mls @ 999 mls/hr IV .Q1H1M ONE Stop: 10/08/21 21:08 Last Infusion: 10/08/21 21:03 Dose: 0 mls/hr Documented by: [id number] Admin: 10/08/21 20:09 Dose: 999 mls/hr Documented by: [id number] Sodium Chloride (Nss 1000ml) 1,000 mls @ 999 mls/hr IV .Q1H1M ONE Stop: 10/08/21 21:13 Last Infusion: 10/08/21 22:02 Dose: 0 mls/hr Documented by: [id number] Admin: 10/08/21 21:04 Dose: 999 mls/hr Documented by: [id number] Sodium Chloride (Nss 1000ml) 1,000 mls @ 999 mls/hr IV .Q1H1M ONE Stop: 10/08/21 22:31 Last Infusion: 10/08/21 23:03 Dose: 0 mls/hr Documented by: [id number] Admin: 10/08/21 22:03 Dose: 999 mls/hr Documented by: [id number] Dexamethasone 6 mg/ Syringe 1.5 mls @ 1 mls/min IV ONE ONE Stop: 10/08/21 23:15 Last Admin: 10/09/21 02:40 Dose: 1 mls/min Documented by: [id number] Magnesium Sulfate/Dextrose (Magnesium Sulfate / D5w) 1 gm in 100 mls @ 100 mls/hr IV NOW STA Stop: 10/09/21 01:01 Last Admin: 10/09/21 00:43 Dose: Not Given Documented by: [id number] Magnesium Sulfate/Dextrose (Magnesium Sulfate / D5w) 1 gm in 100 mls @ 50 mls/hr IV Q2H [facility] Stop: 10/09/21 06:14 Last Infusion: 10/09/21 07:04 Dose: 0 mls/hr Documented by: [id number] Admin: 10/09/21 04:31 Dose: 50 mls/hr Documented by: [id number] Infusion: 10/09/21 04:31 Dose: 50 mls/hr Documented by: [id number] Admin: 10/09/21 02:40 Dose: 50 mls/hr Documented by: [id number] Infusion: 10/09/21 02:40 Dose: 50 mls/hr Documented by: [id number] Admin: 10/09/21 00:49 Dose: 50 mls/hr Documented by: [id number] Methylprednisolone 40 mg/ (Syringe) 0.64 mls @ 1.5 mls/min IV Q8H [facility] Stop: 11/08/21 00:59 Last Admin: 10/09/21 02:50 Dose: Not Given Documented by: [id number] Parenteral Electrolytes (Plasma-Lyte A) 500 mls @ 999 mls/hr IV .Q31M ONE Stop: 10/09/21 01:45 Last Infusion: 10/09/21 01:54 Dose: 0 mls/hr Documented by: [id number] Admin: 10/09/21 01:25 Dose: 999 mls/hr Documented by: [id number] Calcium Gluconate 1,000 mg/ (Dextrose) 60 mls @ 240 mls/hr IV NOW ONE Stop: 10/09/21 08:29 Last Infusion: 10/09/21 08:36 Dose: 0 mls/hr Documented by: [id number] Admin: 10/09/21 08:21 Dose: 240 mls/hr Documented by: [id number] Miscellaneous (Patient's Height And/Or Weight Needed) 1 ea N/A NOW [facility] Stop: 10/09/21 00:22 Last Admin: 10/09/21 00:52 Dose: 1 ea Documented by: [id number] Miscellaneous (Icu Protocol For Hyperglycemia) 1 ea [facility] Stop: 10/11/21 08:59 Last Admin: 10/09/21 07:03 Dose: 1 ea Documented by: [id number] Imaging Data Radiologist's Impression: Chest X-Ray 10/08/21 19:53 SINGLE VIEW CHEST CLINICAL HISTORY: Sepsis. Dyspnea. FINDINGS: An AP, portable, upright chest radiograph is obtained. No prior studies are available for comparison at the time of dictation. The examination is degraded by portable technique and apical lordotic positioning. The cardiomediastinal silhouette is unremarkable. There is severe emphysema. Bullous change is noted at the apices, left greater than right. Foci of parenchymal scarring are seen throughout both lungs. There is dense masslike consolidation in the left upper lobe. Patchy consolidation is seen throughout the left lower lung and in the right midlung. No large pleural effusion or pneumothorax is seen. The skeletal structures are osteopenic. The bony thorax is grossly intact. Arthritic changes seen in the left shoulder. IMPRESSION: 1. Severe emphysema. 2. Multifocal airspace consolidation is seen throughout both lungs, most confluent in the left upper lung. The appearance is typical for multifocal pneumonia. Radiographic follow-up to resolution is recommended. ACT 112: Negative or not required by law. Electronically signed by: Thee De La Cruz M.D. 10/08/2021 8:03 PM Discharge Plan Visit Data Chief Complaint: Shortness of Breath/Dyspnea ED Provider: Hu Valero Discharge Problem: Pneumonia, Acute exacerbation of chronic obstructive pulmonary disease, Hypoxia, Respiratory failure, Acute hypotension, Hypomagnesemia Patient Disposition: Admitted As Inpatient Discharge Instructions Interventions: ED Discharge Assessment Last Done: 10/08/21 23:54 Discharge Problem: Pneumonia Qualifiers: Pneumonia type: due to unspecified organism Laterality: left Lung location: upper lobe of lung Qualified Code(s): J18.9 - Pneumonia, unspecified organism Respiratory failure Qualifiers: Chronicity: acute Respiratory failure complication: hypoxia Qualified Code(s): J96.01 - Acute respiratory failure with hypoxia
[2021-10-08 20:27] LABS: iSTAT Creatinine 1.4 mg/dl (0.6-1.3); iSTAT Hemoglobin 11.6 g/dl (14.0-18.0); iSTAT Ionized Calcium 1.13 mmol/l (1.12-1.32); iSTAT Potassium 3.9 mmol/L (3.3-5.0)
[2021-10-08 20:28] LABS: Base Excess VBG -0.8 mEq/L; Oxygen Saturation VBG 75.6 %; pH VBG 7.32 (7.36-7.41)
[2021-10-08 20:29] LABS: Hematocrit (blood only) 32.6 % (42-52); Hemoglobin 10.7 g/dL (14.0-18.0); Mean Corpuscular Hemoglobin 31.9 pg (25-34); Mean Corpuscular Hgb Conc 32.8 g/dL (32-36); Mean Corpuscular Volume 97.3 fL (80-100); Mean Platelet Volume 10.8 fL (7.4-10.4); Platelet Count 387 K/uL (130-400); RDW Coefficient of Variation 17.1 % (11.5-14.5); RDW Standard Deviation 59.8 fL (36.4-46.3); Red Blood Count 3.35 M/uL (4.7-6.1); White Blood Count 3.32 K/uL (4.8-10.8)
[2021-10-08 20:52] LABS: Alanine Aminotransferase 8 U/L (7-52); Albumin Globulin Ratio 0.7 (0.9-2); Albumin Level 2.7 gm/dl (3.4-5.0); Alkaline Phosphatase 105 U/L (34-104); Anion Gap 11 (3-11); Aspartate Aminotransferase 14 U/L (13-39); BUN Creatinine Ratio 20.6 (10-20); Bilirubin,Total 0.9 mg/dl (0.2-1.0); Blood Urea Nitrogen 29 mg/dl (6-23); Calcium 8.5 mg/dl (8.5-10.1); Carbon Dioxide 25 mmol/L (21-32); Chloride 94 mmol/L (98-107); Est GFR (African American) 62.3 ml/min; Est GFR (Non-African American) 53.8 ml/min; Globulin 3.8 gm/dl (2.5-4.0); Glucose 123 mg/dl (70-99(Fasting)); Magnesium 1.6 mg/dl (1.7-2.4); Sodium 130 mmol/L (136-145); Total Protein 6.5 gm/dl (6.0-8.3)
[2021-10-08 20:57] LABS: INR 1.3 (0.9-1.1); Partial Thromboplastin Ratio 1.2; Partial Thromboplastin Time 33.8 Seconds (21.0-31.0); Prothrombin Time 13.3 Seconds (9.0-12.0); Troponin I High Sensitivity 23.6 pg/ml (0-20)
[2021-10-08 21:01] LABS: Basophils # (auto) 0.01 K/uL (0-0.2); Basophils % (auto) 0.3 %; Dohle Bodies 3+; Giant Platelets 1+; Immature Granulocytes # (auto) 0.04 K/uL (0.00-0.02); Immature Granulocytes % (auto) 1.2 %; Lymphocytes # (auto) 0.27 K/uL (1.2-3.4); Lymphocytes % (auto) 8.1 %; Monocytes # (auto) 0.25 K/uL (0.11-0.59); Monocytes % (auto) 7.5 %; Neutrophils # (auto) 2.75 K/uL (1.4-6.5); Neutrophils % (auto) 82.9 %; Toxic Granulation 2+
[2021-10-08 21:03] LABS: C Reactive Protein 36.71 mg/dl (0-0.5)
[2021-10-08 21:19] LABS: Adenovirus PCR Not Detected (NotDetected); Bordetella parapertussis PCR Not Detected (NotDetected); Bordetella pertussis PCR Not Detected (NotDetected); Chlamydia pneumoniae PCR Not Detected (NotDetected); Coronavirus 229E PCR Not Detected (NotDetected); Coronavirus CoV-2 (COVID19)PCR Not Detected (NotDetected); Coronavirus HKU1 PCR Not Detected (NotDetected); Coronavirus NL63 PCR Not Detected (NotDetected); Coronavirus OC43PCR Not Detected (NotDetected); Human Metapneumovirus PCR Not Detected (NotDetected); Influenza A PCR Not Detected (NotDetected); Influenza B PCR Not Detected (NotDetected); Mycoplasma pneumoniae PCR Not Detected (NotDetected); Parainfluenza Virus 1 PCR Not Detected (NotDetected); Parainfluenza Virus 2 PCR Not Detected (NotDetected); Parainfluenza Virus 3 PCR Not Detected (NotDetected); Parainfluenza Virus 4 PCR Not Detected (NotDetected); Respiratory Syncytial VirusPCR Not Detected (NotDetected); Rhinovirus/Enterovirus PCR Not Detected (NotDetected)
--- NOTE | 2021-10-08 22:37 | History & Physical Report ---
Date of Service October 08, 2021 Assessment & Plan (1) Pneumonia: (2) Acute exacerbation of chronic obstructive pulmonary disease: (3) Respiratory failure: (4) History of alcohol use: (5) Rheumatoid arthritis: (6) Cirrhosis, alcoholic: (7) T2DM (type 2 diabetes mellitus): Plan: 60-year-old male past medical history significant for COPD not on chronic oxygen therapy, alcohol use disorder in remission with liver cirrhosis, peripheral arterial disease, GERD, CKD stage III, DM2 admitted for acute respiratory failure suspected secondary to community-acquired pneumonia and COPD exacerbation. Patient will be admitted to ICU for monitoring given increased somnolence on my exam Acute on chronic respiratory failure, sepsis secondary to community-acquired pneumonia, COPD: Patient presented with tachypnea, respiratory distress. ESR, CRP, procalcitonin highly elevated. Follow daily Pro-Kiet. Bio fire negative. Evidence of multifocal pneumonia on CXR; CT w/o contrast ordered. Started on vancomycin/Zosyn. Continue broad-spectrum antibiotics with MRSA swab and de-escalate as blood cultures result. Sputum culture ordered after initiation of antibiotics by ER. ABG ordered and shows elevated oxygen levels; titrate to as needed BiPAP for respiratory distress with goal SPO2 88-92%. Continue scheduled Breo, Spiriva; DuoNebs scheduled every 6 hours and every 2 hours as needed for shortness of breath/wheezing. Patient received dexamethasone in ER; transition to methylprednisolone 40 mg IV every 8 hours with de-escalation as able. YOON on CKD: Patient presents with creatinine 1.4 with a typical creatinine of 1.0 in the setting of acute hypotension now status post 3 L of crystalloid solution. Repeat BMP in the a.m. Leukopenia: Likely secondary to sepsis. Repeat CBC in the morning. Alcohol use disorder in remission, cirrhosis: No indication for AWSS protocol at this time. Coags relatively stable. Rheumatoid arthritis: Hold methotrexate in the setting of sepsis secondary to bacterial infection. Chronic pain: Patient may have his at home oxycodone and gabapentin if able to verbalize needs and swallow effectively otherwise IV morphine if n.p.o. DM2: ICU glycemic protocol. GERD: PPI while on steroids. CODE STATUS: Full code. This was discussed with patient's partner who is primary decision-maker in the event that he cannot speak for himself FEN: N.p.o. at this time DVT prophylaxis: Heparin 5000 units SQ every 12 hours Dispo: ICU History of Present Illness Chief Complaint: dyspnea Primary Care Provider: Michelle Campos DO 60-year-old male past medical history significant for COPD not on chronic oxygen therapy, alcohol use disorder in remission with liver cirrhosis, peripheral arterial disease, GERD, CKD stage III, DM2 presented to the ER for worsening dyspnea and cough at home. History is given by as patient is sleeping and hard to arouse. reports that patient has been on oxygen therapy after hospitalization about 2 years ago but was "able to be weaned off of oxygen a few months following that admission". He does not follow regularly with Pulmonology. He is on Spiriva and Breo daily, with nebulizers as needed. She does not report recent measured fevers, chest pain. He is still a current smoker though smokes less now than he did prior to his hospitalization in 2019. He has a history of several equivocal TB tests in the past. On arrival to ER patient was tachycardic, tachypneic, and hypotensive and noted to have leukopenia, VBG with pH 7.32, pCO2 51, pO2 46, HCO3 26. Creatinine elevated at 1.4. CRP, ESR, and procalcitonin elevated. Biofire negative. He was noted to have retractions and belly breathing, and so was placed on BIPAP for pressure support which improved his breathing. CXR revealed multifocal pneumonia with largest consolidation in KELLI. Patient was started on vanc/Zosyn after blood cultures were collected, and he was given 3L NSS due to hypotension. Hospitalist service was consulted for admission. Due to somnolence on my interview ICU provider was consulted. Allergies Allergy/AdvReac Type Severity Reaction Status Date / Time pregabalin Allergy Severe ANAPHYLAXIS Verified 10/08/21 21:25 Home Medications Medication Instructions Recorded Confirmed Type ipratropium 0.5 mg-albuterol 3 mg 3 ml INHALATION Q6H PRN #3 ml 05/19/19 10/08/21 Rx (2.5 mg base)/3 mL nebulization soln fluticasone furoate 100 1 inh INHALATION QAM #60 ea 04/29/20 10/08/21 Rx mcg-vilanterol 25 mcg/dose inhalation powder (Breo Ellipta) tiotropium bromide 18 mcg capsule 1 cap INHALATION QAM #30 puffs 07/02/20 10/08/21 Rx with inhalation device (Spiriva with HandiHaler) venlafaxine 150 mg 150 mg PO QAM #90 cap 09/27/20 10/08/21 Rx capsule,extended release 24 hr buspirone 15 mg tablet 15 mg PO TID #90 tab 04/17/21 10/08/21 Rx aspirin 81 mg tablet,delayed 81 mg PO QAM 05/19/21 10/08/21 History release cholecalciferol (vitamin D3) 125 5,000 unit PO QAM 05/19/21 10/08/21 History mcg (5,000 unit) tablet folic acid 1 mg tablet 1 mg PO QAM 05/19/21 10/08/21 History gabapentin 600 mg tablet 600 mg PO QID #120 tab 06/02/21 10/08/21 Rx levothyroxine 25 mcg tablet 25 mcg PO QAM #90 tab 06/27/21 10/08/21 Rx gabapentin 100 mg capsule 100 mg PO QID #360 cap 06/30/21 10/08/21 Rx pantoprazole 40 mg tablet,delayed 40 mg PO QPM #90 tab 06/30/21 10/08/21 Rx release sennosides 8.6 mg tablet 8.6 mg PO BID #60 tab 07/01/21 10/08/21 Rx docusate sodium 100 mg capsule 100 mg PO BID #180 cap 07/24/21 10/08/21 Rx rosuvastatin 5 mg tablet (Crestor) 5 mg PO PM #90 tab 07/24/21 10/08/21 Rx carbamazepine 100 mg chewable 100 mg PO BID #60 tab 08/19/21 10/08/21 Rx tablet ferrous sulfate 325 mg (65 mg 325 mg PO BID #60 tab 08/29/21 10/08/21 Rx iron) tablet methotrexate sodium 2.5 mg tablet 15 mg PO WK 30 Days #180 tab 09/22/21 10/08/21 Rx oxycodone 10 mg tablet 10 mg PO TID PRN #90 tab 09/22/21 10/08/21 Rx tamsulosin 0.4 mg capsule 0.4 mg PO PM #90 cap 09/22/21 10/08/21 Rx mirtazapine 30 mg tablet 30 mg PO HS #90 tab 09/26/21 10/08/21 Rx venlafaxine 75 mg capsule,extended 75 mg PO QAM #90 cap 09/26/21 10/08/21 Rx release 24 hr Past Med/Surg History Medical History Acid reflux Stable and controlled per patient Anemia No recent blood transfusion or iron infusions Anxiety Benign prostate hyperplasia Charcot's joint of foot, non-diabetic Chronic kidney disease, stage III (moderate) Chronic obstructive pulmonary disease Well controlled per pt No oxygen since 05/2019 Chronic pain syndrome Multifactorial in nature- LDD, neuropathy, OA, RA Cirrhosis, alcoholic HX OF (LAST ETOH 10 YEARS AGO) Follows with GI routinely Depression Flexion deformity of hand Unable to fully extend 4th and 5th digits of left hand History of stroke 2011 - NO PHYSICAL RESIDUAL EFFECTS, MEMORY PROBLEM FOLLOWING - HAS RECOVERED SOME BUT NOT ENTIRELY Hypothyroidism Hypoxemic respiratory failure, chronic resolved per pt Lumbar disc herniation with radiculopathy Neuropathy, alcoholic Fair control On gabapentin Peripheral arterial disease Stable per 03/2021 PCP note- no significant blockage with LE angiogram in 12/2020 Portal hypertension Rheumatoid arthritis Follows with rheum - [facility] T2DM (type 2 diabetes mellitus) NIDDM > diet controlled Glucose stable Surgical History H/O hand surgery (02/07/21) R index, middle, ring and small finger MCP joint silicone implant arthroplasties w/ extensor tendon centralization H/O oral surgery ALL TEETH OUT History of esophagogastroduodenoscopy (EGD) Hx of surgical procedure (12/2020) Angio Extremity > bilat legs Hx of umbilical hernia repair 11/14/12 S/P epidural steroid injection Status post left hip replacement (01/2018) Status post right hip replacement (10/2018) Status post-operative repair of closed fracture of left hip (2012) IM nail placement L hip Family History Father Aneurysm Hx of CABG Family history of cardiac pacemaker Coronary heart disease Cardiac pacemaker Mother Family history of cardiac pacemaker Diabetes Hypertension Cardiac pacemaker Brother Diabetes Other Family history non-contributory Denies family history of Colon cancer Ovarian cancer Prostate cancer Myocardial infarction Breast cancer Social History Smoking Status: Current every day smoker Tobacco Type: Cigarettes Age Started Using Tobacco: 13; packs per day: 0.25; Cigarettes Per Day: 10; Second Hand Exposure: No; Do You Dip or Chew Tobacco: No; Hx Alcohol Use: Yes Alcohol type: beer Hx Substance Use: Yes Last Used Substance: Unknown Last Used Substance Other:: 2 days ago Substance Use Type Other:: couple times a week Preferred Language: Pashto Communication Ability: Effective Visual Impairment: Limited Hearing Ability: Normal 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: No Beliefs That Will Affect Care: None marital status: marital status details: 1 son, 3 daughters Current Living Situation: Spouse Current Living Situation Comment: spouse, 1 daughter, grandson every other weekend current occupational status: unemployed and disabled How many Children do You have: 5 Feels Safe at Home: Yes Safety Concerns: Feels Safe At This Time Childhood Exposure to Second-Hand Smoke: Yes caffeine: Yes during the past year weight has: remained stable Dental Care, Regularly: No Physical Activity Frequency: Does not Exercise Seatbelt Use: always Sunscreen Use: Yes Assistive Devices: Cane, Denture - Upper, Denture - Lower, Glasses, Nebulizer, Walker and Wheelchair Assistive Devices Comment: refuses to wear his dentures Review of Systems Review of Systems: Unobtainable due to reduced consciousness Physical Exam Constitutional: + ill appearing Eyes: PERRL, conjunctivae normal, anicteric sclerae ENMT: external ear and nose normal, oropharynx normal Neck: normal visual inspection Respiratory: mildly tachypneic, poor air movement throughout but further decreased breath sounds in left upper lung field Cardiovascular: RRR, no murmur, no edema Gastrointestinal (Abdomen): normal bowel sounds, soft, nontender, no hepatosplenomegaly Skin: no rashes, warm and dry Neurologic: Somnolent, mild groan to sternal rub Results & Data Results & Data ([facility]) Vital Signs (Past 12 Hours) Vital Signs Temp Pulse Pulse Resp BP BP Pulse Ox 10/08/21 21:31 121 H 23 96/54 L 96 10/08/21 20:16 132 H 25 H 10/08/21 20:10 127 H 30 H 94 10/08/21 20:02 36.9 C 135 H 37 H 80/51 L 93 10/08/21 19:53 123 H 26 H 88/56 L 95 Critical Care Time 40 minutes Supervising Physician Co-Signing Physician Notes Attending addendum: I have physically seen this patient, have supervised the medical residents activities, and agree with the H&P unless as otherwise noted. Assessment and Plan: Acute on chronic respiratory failure with hypoxia and hypercapnia/pneumonia/COPD exacerbation- Multifocal pneumonia on chest x-ray CT chest without contrast ordered Empiric vancomycin IV and Zosyn IV per pharmacokinetic monitoring BiPAP as noted Duonebs every 4 hours while awake and every 2 hours when necessary. Methylprednisolone 40 mg IV every 8 hours Admit to the ICU, with remainder of orders per their direction YOON on CKD- Creatinine 1.41 upon admission, with base 1.18 Status post 3 L fluids in ED Follow laboratory serially every morning Remaining orders and notations as noted Resident Activity Tracking Resident Involvement: Resident Care Provided Care Provided: Adult Hospital Medicine (1) Respiratory failure Chronicity: acute Respiratory failure complication: hypoxia Qualified Code(s): J96.01 - Acute respiratory failure with hypoxia (2) Pneumonia Laterality: left Lung location: upper lobe of lung Pneumonia type: due to unspecified organism Qualified Code(s): J18.9 - Pneumonia, unspecified organism
[2021-10-08] MEDS ORDERED: ALBUT/IPRATROP 3MG/0.5MG NEB 3 ML VIAL NEB PRN (22:50)
[2021-10-08 23:09] LABS: Base Excess ABG -3.5 mEq/L (-9-1.8); HCO3 ABG 23 mmol/L (19-24); PCO2 ABG 45 mmHg (35-46); PO2 ABG 100 mmHg (80-95); pH ABG 7.32 (7.35-7.45)
[2021-10-08] MEDS ORDERED: dexAMETHasone 6 MG in SYRINGE 0 ML IV ONE (23:14)
[2021-10-08 23:16] LABS: Allen Test Pos (Pos)
[2021-10-08] MEDS: AZITHROMYCIN 500 MG in DEXTROSE 5% 250 ML IV SCH (23:43)
--- NOTE | 2021-10-09 | Critical Care Consultation ---
Date of Consultation October 08, 2021 Assessment & Plan (1) Pneumonia: Reason Critically Ill: Pneumonia with Severe COPD on home oxygen. Placed on BiPAP 05/06 in the EMD for concerns of tachypnea. Patient noted without hypercarbia/acidosis but noted with hyperoxia. Patient was also hypotensive on arrival for which he received 3L crystalloid. He was given 10mg of Decadron followed by another 5mg of Decadron as well as started on Zosyn and Azithromycin for his Left upper lobe Pneumonia. Patient was reported using his accessory muscles to breath. Patient evaluated in EMD, awakens with noxious stimuli, is alert and appropriate, but does endorse he is very tired. He reports having a colonoscopy on Wednesday and was up all night having his bowel prep- which may also be part of his volume status. This was done 2 days ago, and after this the patient states he started to not feel well. He endorses cough and fevers at home. Was using his nebulizers and other medications as needed, his family member endorses that he was using his nebulizers more yesterday than normal, but he remained ill feeling and fatigued. Patient will be admitted to the ICU to watch his respiratory status and continue treatment for his Sepsis. He has organ dysfunction of YOON. Rest of biofire respiratory panel is negative including Influenza and COVID 19. Neuro - Idiopathic polyneuropathy, chronic pain syndrome, Depression, metabolic encephalopathy Somnolent awakens with stimuli, is without focal deficits- secondary to illness and fatigue- support perfusion and treat PNA CAM ICU: Negative - No focal deficits - Follow mental status with treatment - Currently able to protect his airway and verbalize needs - Continue PRN narcotics with his oxycodone- IV morphine if NPO or unable to take medications - Continue Gabapentin in the AM if mentation improves - Continue his Carbamazepine Cardiac - HYPOTENSION, SEPSIS, ELEVATED TROPONIN - SEPSIS secondary from Pneumonia- bacterial presumed - SIRS- 3 qSOFA- 3 Post 3Liters crystalloid infusion - Maintain MAS > 65- goal directed fluid assessment - Bolus for decrease UO, MAPS <65, POCUS exam or NICOM assessment - Lactate negative- 1.8 - Continue supportive care and antibiotics follow biomarkers - Vasopressors for MAP >65 - Trend HScTNI- likely demand type II - ECG obtain on arrival to ICU- trend q6 hour HScTNI until downtrend - Normosol 80ml/hr for one liter Respiratory - Multifocal Bacterial PNA greatest left upper lobe, COPD bullous emphysema, chronic oxygen therapy, chronic respiratory failure - Acute on chronic respiratory failure secondary to pneumonia- Not acute exacerb ation of COPD - Continue broad spectrum antibiotics - de-escalate with culture results - MRSA negative - Respiratory biofire negative - BiPAP- as needed for respiratory distress, tachypnea/hypoxia- goal SPO2 88% and RR <28 - - Full code- intubate for hypoxia or hypercarbia or inability to protect airway- currently none of these - Supplemental oxygen to maintain SPO2 88-92% - Continue albuterol and will add Pulmicort nebulizers tonight and into am - ensure patient able to get original medications into airway with dyspnea before transitioning back - Home meds- BREO, SPIRIVA, ALBUTEROL/IPRATROPIUM - without hypercarbia- +/- continuing steroids in AM- transitioned to Methyl- pred 40mg IV q8 start in AM GI - No acute needs- HX cirrhosis, GERD - Diet Carb consistent - PPI while on steroids - No known Varices RENAL/LYTES - YOON type II, HYPOMAG - YOON in the setting of hypotension - Replete intravascular volume and electrolytes- likely exacerbated by colon prep on and feeling ill not able to keep up with intake - As above - Follow UO - bladder scan PRN - Pool if vasopressors added or continued resuscitation needed MSK: L4-L5 herniation with radiculopathy ENDO - TYPE II DM, HYPOTHYROID - ICU glycemic protocol- goal < 180mg/dl - Continue Synthroid HEME - Leukopenia, anemia. RA - leukopenia likely secondary to sepsis - No acute blood loss noted- recent colonoscopy noted hemorrhoids, and rectal polyp - Continue FESO4 tabs MCV normal - - HOLD methotrexate ID - PNA- bacterial - Elevated PCT - ESR elevated, but also with history of RA - Follow biomarkers q72 hours - await culture results- blood - sputum sample not sent prior to initiation of abx - Zosyn, Azithro, Vanco (pending MRSA) LINES/IV ACCESS - - PIV Continue use of these lines DVT PROPHYLAXIS - - HEPARIN 5000 units sub q q12 DISPO: ICU Day #0 I have personally spent [65] minutes of critical care time in the direct management of this patient. This is a life/limb threatening event. This includes time spent evaluating patient, direct bedside care, chart review, placing orders, interpretation of diagnostic studies, discussion with consultants, patient, and family members, as well as other required patient management activities. This time is exclusive of all separately billable procedures, and teaching time and separate from and in addition to any other critical care service time. Thank you for allowing us to participate in the care of this patient. Please refer to my attending physician's documentation for any further recommendations. (2) Hypoxemic respiratory failure, chronic: (3) Acute hypotension: (4) Lumbar disc herniation with radiculopathy: (5) Rheumatoid arthritis: (6) Chronic pain syndrome: (7) Hypothyroidism: (8) T2DM (type 2 diabetes mellitus): History of Present Illness Reason for Consultation: Pneumonia with tachypnea and obtundation Requesting Physician: Derrell Elena Attending Physician: Derrell Elena History of Present Illness 60 YOM with history of: COPD, Home oxygen (reportedly stopped using this in 2019), Follows with pulm PFT 2019, GERD, alchohol misuse, cirrhosis, Chronic pain syndrome, lumbago, RA, Depression. Comes in to EMD today for increase in fevers and tachypnea, dyspnea, with increase cough over the past 2 days. The patient did arrive hypotensive and tachycardic in EMD as well as anxiety and tachypnea. Was placed to BiPAP 05/06 for tachypnea without evidence of hypercarbia or hypoxia. Had CXR that resulted with KELLI PNA and known COPD history. The patient had routine labs performed to include CRP and PCT, blood cultures were drawn and the patient was was started on Zosyn and Vancomycin as well as Azithromycin. He received 2 SOURAV nebulizers and was given Decadron by EMD. Hospitalist were consulted for admission, secondary to his somnolence, the ICU was consulted for admission. ABG ordered and returned with PH 7.32/45/100/23. Will continue supportive care with goal directed resuscitation, abx, replete electrolytes and follow respiratory and mental status. CT of the chest pending on admission. Allergies Allergy/AdvReac Type Severity Reaction Status Date / Time pregabalin Allergy Severe ANAPHYLAXIS Verified 10/08/21 21:25 Home Medications Medication Instructions Recorded Confirmed Type ipratropium 0.5 mg-albuterol 3 mg 3 ml INHALATION Q6H PRN #3 ml 05/19/19 10/08/21 Rx (2.5 mg base)/3 mL nebulization soln fluticasone furoate 100 1 inh INHALATION QAM #60 ea 04/29/20 10/08/21 Rx mcg-vilanterol 25 mcg/dose inhalation powder (Breo Ellipta) tiotropium bromide 18 mcg capsule 1 cap INHALATION QAM #30 puffs 07/02/20 10/08/21 Rx with inhalation device (Spiriva with HandiHaler) venlafaxine 150 mg 150 mg PO QAM #90 cap 09/27/20 10/08/21 Rx capsule,extended release 24 hr buspirone 15 mg tablet 15 mg PO TID #90 tab 04/17/21 10/08/21 Rx aspirin 81 mg tablet,delayed 81 mg PO QAM 05/19/21 10/08/21 History release cholecalciferol (vitamin D3) 125 5,000 unit PO QAM 05/19/21 10/08/21 History mcg (5,000 unit) tablet folic acid 1 mg tablet 1 mg PO QAM 05/19/21 10/08/21 History gabapentin 600 mg tablet 600 mg PO QID #120 tab 06/02/21 10/08/21 Rx levothyroxine 25 mcg tablet 25 mcg PO QAM #90 tab 06/27/21 10/08/21 Rx gabapentin 100 mg capsule 100 mg PO QID #360 cap 06/30/21 10/08/21 Rx pantoprazole 40 mg tablet,delayed 40 mg PO QPM #90 tab 06/30/21 10/08/21 Rx release sennosides 8.6 mg tablet 8.6 mg PO BID #60 tab 07/01/21 10/08/21 Rx docusate sodium 100 mg capsule 100 mg PO BID #180 cap 07/24/21 10/08/21 Rx rosuvastatin 5 mg tablet (Crestor) 5 mg PO PM #90 tab 07/24/21 10/08/21 Rx carbamazepine 100 mg chewable 100 mg PO BID #60 tab 08/19/21 10/08/21 Rx tablet ferrous sulfate 325 mg (65 mg 325 mg PO BID #60 tab 08/29/21 10/08/21 Rx iron) tablet methotrexate sodium 2.5 mg tablet 15 mg PO WK 30 Days #180 tab 09/22/21 10/08/21 Rx oxycodone 10 mg tablet 10 mg PO TID PRN #90 tab 09/22/21 10/08/21 Rx tamsulosin 0.4 mg capsule 0.4 mg PO PM #90 cap 09/22/21 10/08/21 Rx mirtazapine 30 mg tablet 30 mg PO HS #90 tab 09/26/21 10/08/21 Rx venlafaxine 75 mg capsule,extended 75 mg PO QAM #90 cap 09/26/21 10/08/21 Rx release 24 hr Patient History Medical History Acid reflux Stable and controlled per patient Anemia No recent blood transfusion or iron infusions Anxiety Benign prostate hyperplasia Charcot's joint of foot, non-diabetic Chronic kidney disease, stage III (moderate) Chronic obstructive pulmonary disease Well controlled per pt No oxygen since 05/2019 Chronic pain syndrome Multifactorial in nature- LDD, neuropathy, OA, RA Cirrhosis, alcoholic HX OF (LAST ETOH 10 YEARS AGO) Follows with GI routinely Depression Flexion deformity of hand Unable to fully extend 4th and 5th digits of left hand History of stroke 2011 - NO PHYSICAL RESIDUAL EFFECTS, MEMORY PROBLEM FOLLOWING - HAS RECOVERED SOME BUT NOT ENTIRELY Hypothyroidism Hypoxemic respiratory failure, chronic resolved per pt Lumbar disc herniation with radiculopathy Neuropathy, alcoholic Fair control On gabapentin Peripheral arterial disease Stable per 03/2021 PCP note- no significant blockage with LE angiogram in 12/2020 Portal hypertension Rheumatoid arthritis Follows with rheum - [facility] T2DM (type 2 diabetes mellitus) NIDDM > diet controlled Glucose stable Surgical History H/O hand surgery (02/07/21) R index, middle, ring and small finger MCP joint silicone implant arth roplasties w/ extensor tendon centralization H/O oral surgery ALL TEETH OUT History of esophagogastroduodenoscopy (EGD) Hx of surgical procedure (12/2020) Angio Extremity > bilat legs Hx of umbilical hernia repair 11/14/12 S/P epidural steroid injection Status post left hip replacement (01/2018) Status post right hip replacement (10/2018) Status post-operative repair of closed fracture of left hip (2012) IM nail placement L hip Family History Father Aneurysm Hx of CABG Family history of cardiac pacemaker Coronary heart disease Cardiac pacemaker Mother Family history of cardiac pacemaker Diabetes Hypertension Cardiac pacemaker Brother Diabetes Other Family history non-contributory Denies family history of Colon cancer Ovarian cancer Prostate cancer Myocardial infarction Breast cancer Social History Smoking Status: Current every day smoker Tobacco Type: Cigarettes Age Started Using Tobacco: 13; packs per day: 0.25; Cigarettes Per Day: 10; Second Hand Exposure: No; Do You Dip or Chew Tobacco: No; Hx Alcohol Use: Yes Alcohol type: beer Hx Substance Use: Yes Last Used Substance: Unknown Last Used Substance Other:: 2 days ago Substance Use Type Other:: couple times a week Preferred Language: French Communication Ability: Effective Visual Impairment: Limited Hearing Ability: Normal Solar Resource Assessor Required: No Beliefs That Will Affect Care: None marital status: marital status details: 1 son, 3 daughters Current Living Situation: Spouse Current Living Situation Comment: spouse, 1 daughter, grandson every other weekend current occupational status: unemployed and disabled How many Children do You have: 4 Feels Safe at Home: Yes Safety Concerns: Feels Safe At This Time Childhood Exposure to Second-Hand Smoke: Yes caffeine: Yes during the past year weight has: remained stable Dental Care, Regularly: No Physical Activity Frequency: Does not Exercise Seatbelt Use: always Sunscreen Use: Yes Assistive Devices: Cane, Denture - Upper, Denture - Lower, Glasses and Walker Review of Systems Review of Systems: REVIEW OF SYSTEMS: Constitutional: (+) fever, sweats or chills Eyes: No diplopia, no worsening or blurred vision ENT: normal hearing, no trouble swallowing Respiratory: (+) cough, sputum, dyspnea at rest or on exertion Cardiovascular: (+) tachycardia, No chest pain, tightness or palpitations Abdomen: No pain, nausea, vomiting, diarrhea or constipation Musculoskeletal: (+) back and knee joint pain, NO calf pain, swelling Neurologic: No weakness, numbness/tingling, or balance problems Psychiatric: (+) alcohol misuse, depression, No anxiety Skin: No rash or itch Physical Exam Physical Exam: PHYSICAL EXAM: General: somnolent, awakens with noxious stimuli and states he is just trying to take a snooze Head: Normocephalic, atraumatic ENT: PERRLA, EOMI, mucous membranes dry Neuro: AAO x 3, speech clear and appropriate, strength intact bilaterally 5/5, sensation intact and equal all extremities and dermatomes, no pronator drift Chest: equal rise and fall of the chest, inspiratory and expiratory wheeze throughout bilaterally with scattered rhonchi LT>RT Cardiac: Regular rate and rhythm, telemetry reviewed- sinus tach, skin warm dry, cap refill <3 seconds, peripheral pulses +2 no JVD, no murmur, no edema GI: NABS x 4 quadrants, soft, nontender to palpation, no rebound, guarding or tenderness : Spontaneously voiding, no pain, no CVA tenderness, Extremities: Normal inspection, no peripheral edema or erythema, calfs nontender to palpation Psych: Normal mood and affect Skin: no rash or erythema Results & Data Results & Data ([facility]) Vital Signs (Past 12 Hours) Vital Signs Temp Pulse Pulse Resp BP BP Pulse Ox 10/08/21 23:05 107 H 33 H 98/65 L 93 10/08/21 23:00 27 H 10/08/21 22:39 100 H 23 91/54 L 97 10/08/21 21:31 121 H 23 96/54 L 96 10/08/21 20:16 132 H 25 H 10/08/21 20:10 127 H 30 H 94 10/08/21 20:02 36.9 C 135 H 37 H 80/51 L 93 10/08/21 19:53 123 H 26 H 88/56 L 95 Laboratory Results Abnormal lab results 10/08/21 10/08/21 10/08/21 Range/Units 20:05 20:05 20:05 WBC 3.32 L (4.8-10.8) K/uL RBC 3.35 L (4.7-6.1) M/uL Hgb 10.7 L (14.0-18.0) g/dL POC Hgb (14.0-18.0) g/dl Hct 32.6 L (42-52) % POC Hct (42-52) % RDW Std Deviation 59.8 H (36.4-46.3) fL RDW Coeff of Alix 17.1 H (11.5-14.5) % MPV 10.8 H (7.4-10.4) fL Lymph # (Auto) 0.27 L (1.2-3.4) K/uL Immature Gran # (Auto) 0.04 H (0.00-0.02) K/uL ESR > 130 H (0-20) mm/hr PT 13.3 H (9.0-12.0) Seconds INR 1.3 H (0.9-1.1) APTT 33.8 H (21.0-31.0) Seconds ABG pH (7.35-7.45) ABG pO2 (80-95) mmHg ABG O2 Saturation (90-95) % VBG pH (7.36-7.41) VBG pCO2 (38-50) mmHg POC Sodium (135-144) mmol/L Sodium (136-145) mmol/L POC Chloride (101-112) mmol/L Chloride (98-107) mmol/L POC BUN (7-18) mg/dl BUN (6-23) mg/dl Creatinine (0.6-1.4) mg/dl POC Creatinine (0.6-1.3) mg/dl BUN/Creatinine Ratio (10-20) Glucose (70-99(Fasting)) mg/dl POC Glucose (other) (70-99) mg/dl Magnesium (1.7-2.4) mg/dl Alkaline Phosphatase (34-104) U/L Troponin I High Sens (0-20) pg/ml C-Reactive Protein (0-0.5) mg/dl Albumin (3.4-5.0) gm/dl Albumin/Globulin Ratio (0.9-2) Procalcitonin (0-0.5) ng/ml 10/08/21 10/08/21 10/08/21 Range/Units 20:05 20:05 20:05 WBC (4.8-10.8) K/uL RBC (4.7-6.1) M/uL Hgb (14.0-18.0) g/dL POC Hgb (14.0-18.0) g/dl Hct (42-52) % POC Hct (42-52) % RDW Std Deviation (36.4-46.3) fL RDW Coeff of Alix (11.5-14.5) % MPV (7.4-10.4) fL Lymph # (Auto) (1.2-3.4) K/uL Immature Gran # (Auto) (0.00-0.02) K/uL ESR (0-20) mm/hr PT (9.0-12.0) Seconds INR (0.9-1.1) APTT (21.0-31.0) Seconds ABG pH (7.35-7.45) ABG pO2 (80-95) mmHg ABG O2 Saturation (90-95) % VBG pH 7.32 L (7.36-7.41) VBG pCO2 51 H (38-50) mmHg POC Sodium (135-144) mmol/L Sodium 130 L (136-145) mmol/L POC Chloride (101-112) mmol/L Chloride 94 L (98-107) mmol/L POC BUN (7-18) mg/dl BUN 29 H (6-23) mg/dl Creatinine 1.41 H (0.6-1.4) mg/dl POC Creatinine (0.6-1.3) mg/dl BUN/Creatinine Ratio 20.6 H (10-20) Glucose 123 H (70-99(Fasting)) mg/dl POC Glucose (other) (70-99) mg/dl Magnesium 1.6 L (1.7-2.4) mg/dl Alkaline Phosphatase 105 H (34-104) U/L Troponin I High Sens 23.6 H (0-20) pg/ml C-Reactive Protein 36.71 H (0-0.5) mg/dl Albumin 2.7 L (3.4-5.0) gm/dl Albumin/Globulin Ratio 0.7 L (0.9-2) Procalcitonin 9.42 H (0-0.5) ng/ml 10/08/21 10/08/21 10/08/21 Range/Units 20:15 22:57 23:02 WBC (4.8-10.8) K/uL RBC (4.7-6.1) M/uL Hgb (14.0-18.0) g/dL POC Hgb 11.6 L (14.0-18.0) g/dl Hct (42-52) % POC Hct 34 L (42-52) % RDW Std Deviation (36.4-46.3) fL RDW Coeff of Alix (11.5-14.5) % MPV (7.4-10.4) fL Lymph # (Auto) (1.2-3.4) K/uL Immature Gran # (Auto) (0.00-0.02) K/uL ESR (0-20) mm/hr PT (9.0-12.0) Seconds INR (0.9-1.1) APTT (21.0-31.0) Seconds ABG pH 7.32 L (7.35-7.45) ABG pO2 100 H (80-95) mmHg ABG O2 Saturation 97.0 H (90-95) % VBG pH (7.36-7.41) VBG pCO2 (38-50) mmHg POC Sodium 131 L (135-144) mmol/L Sodium (136-145) mmol/L POC Chloride 94 L (101-112) mmol/L Chloride (98-107) mmol/L POC BUN 27 H (7-18) mg/dl BUN (6-23) mg/dl Creatinine (0.6-1.4) mg/dl POC Creatinine 1.4 H (0.6-1.3) mg/dl BUN/Creatinine Ratio (10-20) Glucose (70-99(Fasting)) mg/dl POC Glucose (other) 130 H (70-99) mg/dl Magnesium (1.7-2.4) mg/dl Alkaline Phosphatase (34-104) U/L Troponin I High Sens 25.0 H (0-20) pg/ml C-Reactive Protein (0-0.5) mg/dl Albumin (3.4-5.0) gm/dl Albumin/Globulin Ratio (0.9-2) Procalcitonin (0-0.5) ng/ml Diagnostic Findings Chest X-Ray 10/08/21 19:53 SINGLE VIEW CHEST CLINICAL HISTORY: Sepsis. Dyspnea. FINDINGS: An AP, portable, upright chest radiograph is obtained. No prior studies are available for comparison at the time of dictation. The examination is degraded by portable technique and apical lordotic positioning. The cardiomediastinal silhouette is unremarkable. There is severe emphysema. Bullous change is noted at the apices, left greater than right. Foci of parenchymal scarring are seen throughout both lungs. There is dense masslike consolidation in the left upper lobe. Patchy consolidation is seen throughout the left lower lung and in the right midlung. No large pleural effusion or pneumothorax is seen. The skeletal structures are osteopenic. The bony thorax is grossly intact. Arthritic changes seen in the left shoulder. IMPRESSION: 1. Severe emphysema. 2. Multifocal airspace consolidation is seen throughout both lungs, most confluent in the left upper lung. The appearance is typical for multifocal pneumonia. Radiographic follow-up to resolution is recommended. ACT 112: Negative or not required by law. Electronically signed by: Thee De La Cruz M.D. 10/08/2021 8:03 PM Medications Administered Home Medications ipratropium 0.5 mg-albuterol 3 mg (2.5 mg base)/3 mL nebulization soln 3 ml INHALATION Q6H PRN #3 ml 05/19/19 [Rx Confirmed 10/08/21] fluticasone furoate 100 mcg-vilanterol 25 mcg/dose inhalation powder (Breo Ellipta) 1 inh INHALATION QAM #60 ea 04/29/20 [Rx Confirmed 10/08/21] tiotropium bromide 18 mcg capsule with inhalation device (Spiriva with Handi Haler) 1 cap INHALATION QAM #30 puffs 07/02/20 [Rx Confirmed 10/08/21] venlafaxine 150 mg capsule,extended release 24 hr 150 mg PO QAM #90 cap 09/27/20 [Rx Confirmed 10/08/21] buspirone 15 mg tablet 15 mg PO TID #90 tab 04/17/21 [Rx Confirmed 10/08/21] aspirin 81 mg tablet,delayed release 81 mg PO QAM 05/19/21 [History Confirmed 10/08/21] cholecalciferol (vitamin D3) 125 mcg (5,000 unit) tablet 5,000 unit PO QAM 05/19/21 [History Confirmed 10/08/21] folic acid 1 mg tablet 1 mg PO QAM 05/19/21 [History Confirmed 10/08/21] gabapentin 600 mg tablet 600 mg PO QID #120 tab 06/02/21 [Rx Confirmed 10/08/21] levothyroxine 25 mcg tablet 25 mcg PO QAM #90 tab 06/27/21 [Rx Confirmed 10/08/21] gabapentin 100 mg capsule 100 mg PO QID #360 cap 06/30/21 [Rx Confirmed 10/08/21] pantoprazole 40 mg tablet,delayed release 40 mg PO QPM #90 tab 06/30/21 [Rx Confirmed 10/08/21] sennosides 8.6 mg tablet 8.6 mg PO BID #60 tab 07/01/21 [Rx Confirmed 10/08/21] docusate sodium 100 mg capsule 100 mg PO BID #180 cap 07/24/21 [Rx Confirmed 10/08/21] rosuvastatin 5 mg tablet (Crestor) 5 mg PO PM #90 tab 07/24/21 [Rx Confirmed 10/08/21] carbamazepine 100 mg chewable tablet 100 mg PO BID #60 tab 08/19/21 [Rx Confi rmed 10/08/21] ferrous sulfate 325 mg (65 mg iron) tablet 325 mg PO BID #60 tab 08/29/21 [Rx Confirmed 10/08/21] methotrexate sodium 2.5 mg tablet 15 mg PO WK 30 Days #180 tab 09/22/21 [Rx Confirmed 10/08/21] oxycodone 10 mg tablet 10 mg PO TID PRN #90 tab 09/22/21 [Rx Confirmed 10/08/21] tamsulosin 0.4 mg capsule 0.4 mg PO PM #90 cap 09/22/21 [Rx Confirmed 10/08/21] mirtazapine 30 mg tablet 30 mg PO HS #90 tab 09/26/21 [Rx Confirmed 10/08/21] venlafaxine 75 mg capsule,extended release 24 hr 75 mg PO QAM #90 cap 09/26/21 [Rx Confirmed 10/08/21] Active Medications Albuterol (Albut/Ipratrop 3mg/0.5mg Neb 3 Ml Vial) 3 ml NEB Q2H PRN PRN Reason: Shortness of Breath/Wheezing Stop: 11/07/21 22:49 Albuterol (Albut/Ipratrop 3mg/0.5mg Neb 3 Ml Vial) 3 ml INH Q6R ISSAC Stop: 11/08/21 00:59 Azithromycin 500 mg/ Dextrose 255 mls @ 125 mls/hr IV Q24H ISSAC Stop: 10/11/21 22:49 Last Admin: 10/08/21 23:43 Dose: 125 mls/hr Documented by: Magnesium Sulfate/Dextrose (Magnesium Sulfate / D5w) 1 gm in 100 mls @ 100 mls/hr IV NOW STA Stop: 10/09/21 01:01 Methylprednisolone (Methylprednisolone 40 Mg/Ml Vial) 40 mg IV Q8H ISSAC Stop: 11/08/21 00:59 Miscellaneous Information (Piperacill/Tazobac Consult Active) 1 ea N/A UD PRN PRN Reason: Consult Stop: 11/07/21 20:00 Miscellaneous Information (Vancomycin Consult Active) 1 ea N/A UD PRN PRN Reason: Consult Stop: 11/07/21 20:06 Coding Level of Care Code Critical Care 1st 30-74 mins Diagnoses Pneumonia J18.9 Laterality: left Lung location: upper lobe of lung Pneumonia type: due to unspecified organism Acute hypotension I95.9 Lumbar disc herniation with radiculopathy M51.16 Rheumatoid arthritis M06.9 Chronic pain syndrome G89.4 Hypothyroidism E03.9 T2DM (type 2 diabetes mellitus) E11.9 Hypoxemic respiratory failure, chronic J96.11 (1) Pneumonia Laterality: left Lung location: upper lobe of lung Pneumonia type: due to unspecified organism Qualified Code(s): J18.9 - Pneumonia, unspecified organism
[2021-10-09] MEDS ORDERED: MAGNESIUM SULFATE / D5W 1 GM/100 ML BAG IV STA (00:02)
[2021-10-09] MEDS ORDERED: ICU PROTOCOL FOR HYPERGLYCEMIA PRN (00:12)
[2021-10-09] MEDS ORDERED: Patient's HEIGHT &/or WEIGHT Needed STA (00:21)
[2021-10-09] MEDS: BUDESONIDE 0.25 MG/2 ML VIAL (PULMICORT) NEB SCH ×3 (00:35→19:57)
[2021-10-09] MEDS: MAGNESIUM SULFATE / D5W 1 GM/100 ML BAG IV SCH ×3 (00:49→04:31)
[2021-10-09] MEDS ORDERED: methylPREDNISolone 40 MG in SYRINGE 0 ML IV SCH (01:00)
[2021-10-09] MEDS ORDERED: NALOXONE HCL 0.4 MG/1 ML VIAL/CARP IV PRN (01:08)
[2021-10-09] MEDS ORDERED: NORMOSOL-R 1,000 ML IV ONE (01:09)
[2021-10-09] MEDS ORDERED: NORMOSOL-R 500 ML IV ONE (01:15)
[2021-10-09] MEDS ORDERED: STAT IV Infusion **Titration per Protocol STA (01:28)
[2021-10-09] MEDS: NOREPINEPHRINE/D5W 8 MG/508 ML BAG IV SCH (01:59)
[2021-10-09 02:09] LABS: Appearance Urine Cloudy (Clear); Bacteria Urine Automated Negative (Negative); Bilirubin Urine 1+ (Negative); Blood Urine 1+ (Negative); Color Urine Dark Yellow; Epithelial Cell Urine Auto >30 /lpf (0-5); Glucose Urine UA Negative (Negative); Ketones Urine Negative (Negative); Leukocyte Esterase Urine Negative (Negative); Nitrite Urine Negative (Negative); Protein Urine 2+ (Negative); Specific Gravity Urine 1.018 (1.000-1.030); Urobilinogen Urine Negative (Negative)
[2021-10-09] MEDS: ALBUT/IPRATROP 3MG/0.5MG NEB 3 ML VIAL INH SCH ×4 (02:18→19:57)
[2021-10-09] MEDS: PIPERACILLIN/TAZOBACTAM 4.5 GM in DEXTROSE 5% 100 ML IV SCH ×3 (02:40→18:48)
[2021-10-09 05:14] LABS: iSTAT Allen Test Pass; iSTAT Art Bld Gas pCO2 Correct 52 mmHg (35-46); iSTAT Art Bld Gas pH Corrected 7.284 (7.35-7.45); iSTAT Arterial Blood Gas HCO3 25 meg/L (19-24); iSTAT Arterial Blood Gas pCO2 53 mmHg (35-46); iSTAT Arterial Blood Gas pH 7.28 (7.35-7.45); iSTAT Arterial Blood Gas pO2 70 mmHg (80-95); iSTAT Arterial Blood Gas pO2 C 68; iSTAT Carbon Dioxide 26 mmol/L (24-31); iSTAT FiO2 40 %; iSTAT Hematocrit 26 % (42-52); iSTAT Hemoglobin 8.8 g/dl (14.0-18.0); iSTAT Potassium 3.5 mmol/L (3.3-5.0); iSTAT Site R Radial; iSTAT Sodium 133 mmol/L (135-144)
[2021-10-09 05:24] LABS: Hemoglobin 9.1 g/dL (14.0-18.0); Mean Corpuscular Hemoglobin 32.3 pg (25-34); Mean Corpuscular Hgb Conc 32.5 g/dL (32-36); Mean Corpuscular Volume 99.3 fL (80-100); Mean Platelet Volume 10.3 fL (7.4-10.4); Platelet Count 311 K/uL (130-400); RDW Coefficient of Variation 16.9 % (11.5-14.5); RDW Standard Deviation 59.8 fL (36.4-46.3); Red Blood Count 2.82 M/uL (4.7-6.1); White Blood Count 2.78 K/uL (4.8-10.8)
[2021-10-09 05:46] LABS: ALC (manual) 0.05 K/uL (1.2-3.4); ANC (manual) 2.53 K/uL (1.4-6.5); Dohle Bodies 1+; Echinocytes 1+; Lymphocytes # (manual) 0.05 K/uL (1.2-3.4); Lymphocytes % (manual) 1.8 %; Metamyelocytes % (manual) 3.6 %; Monocytes % (manual) 3.6 %; Neutrophils # (manual) 2.53 K/uL (1.4-6.5)
[2021-10-09] MEDS: LEVOTHYROXINE SODIUM 25 MCG TABLET PO SCH (06:15)
[2021-10-09 06:29] LABS: Troponin I High Sensitivity 15.6 pg/ml (0-20)
[2021-10-09 06:46] LABS: Albumin Globulin Ratio 0.7 (0.9-2); Albumin Level 2.3 gm/dl (3.4-5.0); BUN Creatinine Ratio 19.7 (10-20); Bilirubin,Total 0.7 mg/dl (0.2-1.0); Calcium 7.7 mg/dl (8.5-10.1); Creatinine Clr Calc Pharmacy 55.6 ml/min; Est GFR (African American) 70.7 ml/min; Globulin 3.1 gm/dl (2.5-4.0); Magnesium 2.4 mg/dl (1.7-2.4); Potassium 4.3 mmol/L (3.5-5.1); Total Protein 5.4 gm/dl (6.0-8.3)
[2021-10-09 06:52] LABS: iSTAT Allen Test Pass; iSTAT Art Bld Gas pCO2 Correct 56 mmHg (35-46); iSTAT Arterial Blood Gas HCO3 25 meg/L (19-24); iSTAT Arterial Blood Gas pCO2 56 mmHg (35-46); iSTAT Arterial Blood Gas pH 7.26 (7.35-7.45); iSTAT Arterial Blood Gas pO2 < 32 mmHg (80-95); iSTAT Arterial Blood Gas pO2 C 28; iSTAT Carbon Dioxide 27 mmol/L (24-31); iSTAT FiO2 40 %; iSTAT Hematocrit 26 % (42-52); iSTAT Hemoglobin 8.8 g/dl (14.0-18.0); iSTAT Potassium 3.6 mmol/L (3.3-5.0); iSTAT Site R Brachial; iSTAT Sodium 131 mmol/L (135-144)
--- NOTE | 2021-10-09 06:52 | Hospitalist Progress Note ---
Date of Service October 09, 2021 Assessment & Plan (1) Pneumonia: Plan: 60-year-old male past medical history significant for COPD not on chronic oxygen therapy, alcohol use disorder in remission with liver cirrhosis, peripheral arterial disease, GERD, CKD stage III, DM2 admitted for acute respiratory failure suspected secondary to community-acquired pneumonia and COPD exacerbation. Patient will be admitted to ICU for monitoring given increased somnolence. Acute on chronic respiratory failure, sepsis secondary to community-acquired pneumonia, COPD: Patient presented with tachypnea, respiratory distress. ESR, CRP, procalcitonin highly elevated. Follow daily Pro-Kiet. Bio fire negative. Evidence of multifocal pneumonia on CXR; CT w/o contrast ordered. Started on vancomycin/Zosyn. Continue broad-spectrum antibiotics with MRSA swab and de-escalate as blood cultures result. Sputum culture ordered after initiation of antibiotics by ER. ABG ordered and shows elevated oxygen levels; titrate to as needed BiPAP for respiratory distress with goal SPO2 88-92%. Continue scheduled Breo, Spiriva; DuoNebs scheduled every 6 hours and every 2 hours as needed for shortness of breath/wheezing. Patient received dexamethasone in ER; transition to methylprednisolone 40 mg IV every 8 hours with de-escalation as able. YOON on CKD: Patient presents with creatinine 1.4 with a typical creatinine of 1.0 in the setting of acute hypotension now status post 3 L of crystalloid solution. Repeat BMP in the a.m. Leukopenia: Likely secondary to sepsis. Repeat CBC in the morning. Alcohol use disorder in remission, cirrhosis: No indication for AWSS protocol at this time. Coags relatively stable. Rheumatoid arthritis: Hold methotrexate in the setting of sepsis secondary to bacterial infection. Chronic pain: Patient may have his at home oxycodone and gabapentin if able to verbalize needs and swallow effectively otherwise IV morphine if n.p.o. DM2: ICU glycemic protocol. GERD: PPI while on steroids. CODE STATUS: Full code. This was discussed with patient's partner who is primary decision-maker in the event that he cannot speak for himself FEN: N.p.o. at this time DVT prophylaxis: Heparin 5000 units SQ every 12 hours Dispo: ICU (2) Acute exacerbation of chronic obstructive pulmonary disease: (3) Respiratory failure: (4) History of alcohol use: (5) Rheumatoid arthritis: (6) Cirrhosis, alcoholic: (7) T2DM (type 2 diabetes mellitus): Admission and Anticipated Discharge Date Admission Date: October 08, 2021 Review of Systems Review of Systems: All systems reviewed & are unremarkable except as noted in HPI & below Physical Exam Physical Exam: General: Grossly A&O. NAD. Cooperative. HEENT: Atraumatic, normocephalic. EOMI Pulm: CTAB. -wheezes, -rales, -rhonchi. No respiratory distress. Cardiac: RRR, -mrg. Radial pulses intact and symmetrical. Abdominal: Nontender, nondistended, soft. Results & Data Results & Data ([facility]) Vital Signs (Past 12 Hours) Vital Signs Temp Pulse Pulse Resp BP BP Pulse Ox 10/09/21 06:00 83 10/09/21 04:00 85 30 H 93 10/09/21 03:00 36.6 C 94 H 26 H 92/62 L 93 10/09/21 02:30 94 H 24 90/62 L 94 10/09/21 02:19 96 H 26 H 92 10/09/21 02:10 92 H 23 102/66 93 10/09/21 02:00 92 H 23 75/50 L 93 10/09/21 01:40 97 H 29 H 83/59 L 91 10/09/21 01:30 95 H 23 78/52 L 92 10/09/21 01:02 100 H 31 H 85/47 L 90 10/09/21 01:00 101 H 26 H 73/49 L 90 10/09/21 00:47 37 C 98 H 28 H 94/61 L 92 10/09/21 00:36 101 H 26 H 91 10/09/21 00:30 103 H 28 H 88 L 10/09/21 00:24 37 C 102 H 29 H 84/57 L 96 10/09/21 00:12 102 H 10/08/21 23:45 102 H 25 H 94/58 L 95 10/08/21 23:30 100 H 23 95/58 L 96 10/08/21 23:15 104 H 26 H 91/57 L 96 10/08/21 23:05 107 H 33 H 98/65 L 93 10/08/21 23:03 98/65 L 10/08/21 23:00 27 H 10/08/21 22:50 37 C 99 H 31 H 98/58 L 94 10/08/21 22:39 100 H 23 91/54 L 97 10/08/21 21:31 121 H 23 96/54 L 96 10/08/21 20:16 132 H 25 H 10/08/21 20:10 127 H 30 H 94 10/08/21 20:02 36.9 C 135 H 37 H 80/51 L 93 10/08/21 19:53 123 H 26 H 88/56 L 95 Pulse Ox 10/09/21 06:00 10/09/21 04:00 10/09/21 03:00 10/09/21 02:30 10/09/21 02:19 10/09/21 02:10 10/09/21 02:00 10/09/21 01:40 10/09/21 01:30 10/09/21 01:02 10/09/21 01:00 10/09/21 00:47 10/09/21 00:36 10/09/21 00:30 10/09/21 00:24 10/09/21 00:12 95 10/08/21 23:45 10/08/21 23:30 10/08/21 23:15 10/08/21 23:05 10/08/21 23:03 10/08/21 23:00 10/08/21 22:50 10/08/21 22:39 10/08/21 21:31 10/08/21 20:16 10/08/21 20:10 10/08/21 20:02 10/08/21 19:53 Resident Activity Tracking Resident Involvement: Resident Care Provided Care Provided: Adult Hospital Medicine (1) Pneumonia Laterality: left Lung location: upper lobe of lung Pneumonia type: due to unspecified organism Qualified Code(s): J18.9 - Pneumonia, unspecified organism (2) Respiratory failure Chronicity: acute Respiratory failure complication: hypoxia Qualified Code(s): J96.01 - Acute respiratory failure with hypoxia
[2021-10-09] MEDS ORDERED: PHARMACY GLYCEMIC MGMT CONSULT PRN (07:38)
[2021-10-09] MEDS ORDERED: STAT IV STA (07:48)
--- NOTE | 2021-10-09 07:52 | XRay Report ---
XR chest 1V portable HISTORY: Follow up airspace opacities. Sepsis. COMPARISON: Chest 10/08/2021. FINDINGS: There are severe emphysema. Bilateral upper to midlung zone airspace opacities, left greate r than right, persist. There is interstitial thickening at the lung bases, unchanged. No pneumothorax . The heart is top normal in size. Suspect trace bilateral pleural effusions. IMPRESSION: No change in the severe emphysema and bilateral airspace opacities. ACT 112: Negative or not required by law. Electronically signed by: Tian Torres M.D. 10/09/2021 7:51 AM
[2021-10-09 07:54] LABS: Hematocrit (blood only) 28.6 % (42-52); Hemoglobin 9.1 g/dL (14.0-18.0); Mean Corpuscular Hemoglobin 31.4 pg (25-34); Mean Corpuscular Hgb Conc 31.8 g/dL (32-36); Mean Corpuscular Volume 98.6 fL (80-100); Mean Platelet Volume 10.3 fL (7.4-10.4); Platelet Count 335 K/uL (130-400); RDW Coefficient of Variation 16.8 % (11.5-14.5); White Blood Count 2.97 K/uL (4.8-10.8)
[2021-10-09 07:58] LABS: INR 1.2 (0.9-1.1); Prothrombin Time 12.9 Seconds (9.0-12.0)
[2021-10-09] MEDS ORDERED: CALCIUM GLUCONATE 10% 1,000 MG in DEXTROSE 5% 50 ML IV ONE (08:15)
[2021-10-09 08:22] LABS: Dohle Bodies 3+; Immature Granulocytes # (auto) 0.07 K/uL (0.00-0.02); Immature Granulocytes % (auto) 2.4 %; Lymphocytes # (auto) 0.14 K/uL (1.2-3.4); Lymphocytes % (auto) 4.7 %; Monocytes # (auto) 0.18 K/uL (0.11-0.59); Monocytes % (auto) 6.1 %; Neutrophils # (auto) 2.58 K/uL (1.4-6.5); Neutrophils % (auto) 86.8 %; Toxic Granulation 2+
--- NOTE | 2021-10-09 08:22 | CT Scan Report ---
CT chest diagnostic wo con CT DOSE: 243.71 mGy.cm HISTORY: Shortness of breath. respiratory failure TECHNIQUE: Multiaxial CT images of the chest were performed without contrast. A dose lowering techni que was utilized adhering to the principles of ALARA. COMPARISON: Chest CT 04/06/2019. FINDINGS: Mild anterior wedging at T1 which is likely chronic. There are healing/healed right rib fra ctures. There is also a subacute/healing left anterior fourth rib fracture. Severe bullous emphysema is again noted. No definite pneumothorax. There is small amount of fluid layering within the dominant left apical bulla. Large area of consolidation within the left upper lobe with multiple fluid levels seen within the existing bulla. A necrotizing component of the suspected pneumonia could also have a similar appearance. Smaller patchy peripheral airspace consolidation within the right upper lobe are also noted. Additional patchy groundglass densities seen within the lingula and bilateral lower lobe s with associated tree-in-bud nodular opacities. Bronchial wall thickening seen within the lung bases with a few opacified peripheral bronchi. Mild mediastinal and bilateral hilar lymphadenopathy. This may be reactive. The heart remains mildly enlarged. Mild calcified plaque within the normal caliber t horacic aorta. Bilateral gynecomastia is again noted. Limited views of the upper abdomen demonstrate a normal liver, spleen, and adrenal glands. IMPRESSION: 1. Severe bullous emphysema is again noted. 2. Large area of dense consolidation within the left upper lobe with multiple fluid levels within the existing bulla. This consistent with a pneumonia. A necrotizing component of the suspected pneumonia could've a similar appearance. 3. Additional areas of consolidation/groundglass opacities seen within the lungs and bronchial wall t hickening. This also likely represents the patient's multifocal pneumonia. 4. Subacute/healing left anterior fourth rib fracture. The fracture demonstrates central lucency whic h likely represents the healing fracture. However, follow-up chest CT in 3 months is recommended to e nsure resolution of the suspected pneumonia and to exclude the less likely possibility of a pathologi c fracture. 5. Additional findings as described above. ACT 112: Positive. There are findings on this exam that require communication between the performing entity and the patient following Patient Test Result Information Act ([place] Act 112) guidelines. Electronically signed by: Tian Torres M.D. 10/09/2021 8:20 AM
[2021-10-09] MEDS: PANTOprazole 40 MG in SYRINGE 0 ML IV SCH ×2 (08:25→21:02)
[2021-10-09] MEDS: VENLAFAXINE HCL XR 75 MG CAPXR PO SCH (08:27)
[2021-10-09] MEDS: HEPARIN SOD 5,000 UNIT/0.5 ML VIAL SQ SCH ×2 (08:27→20:58)
[2021-10-09] MEDS: VENLAFAXINE HCL XR 150 MG CAPXR PO SCH (08:27)
[2021-10-09] MEDS: GABAPENTIN 100 MG CAP PO SCH ×4 (08:28→20:57)
[2021-10-09] MEDS: GABAPENTIN 600 MG TAB PO SCH ×4 (08:28→20:57)
[2021-10-09] MEDS: DOCUSATE SODIUM 100 MG CAP PO SCH ×2 (08:29→20:57)
[2021-10-09] MEDS: carBAMazepine 100 MG CHEW TAB PO SCH ×2 (08:29→20:58)
[2021-10-09 08:30] LABS: BUN Creatinine Ratio 20.7 (10-20); Calcium 7.8 mg/dl (8.5-10.1); Creatinine Clr Calc Pharmacy 63.6 ml/min; Est GFR (African American) 83.2 ml/min; Est GFR (Non-African American) 71.8 ml/min; Potassium 3.4 mmol/L (3.5-5.1)
[2021-10-09] MEDS ORDERED: GLUCOSE 10 TABS/TUBE PO PRN (08:30)
[2021-10-09] MEDS: ASPIRIN 81 MG ECTAB PO SCH (08:30)
[2021-10-09] MEDS: UMECLIDINIUM BROMIDE 62.5MCG/BLISTER 7 PUFFS/INHALER INH SCH (08:30)
[2021-10-09] MEDS ORDERED: GLUCAGON FOR INJ 1 MG VIAL IM PRN (08:30)
[2021-10-09] MEDS ORDERED: DEXTROSE 50% 50 ML SYRINGE IV PRN (08:30)
[2021-10-09] MEDS ORDERED: GLUCOSE 40% GEL 15 GM TUBE PO PRN (08:30)
[2021-10-09] MEDS: SENNA 8.6 MG TAB PO SCH ×2 (08:30→20:56)
[2021-10-09] MEDS: guaiFENesin 600 MG TABCR PO SCH ×2 (08:31→20:57)
[2021-10-09] MEDS: methylPREDNISolone 40 MG in SYRINGE 0 ML IV SCH ×2 (08:34→16:36)
[2021-10-09] MEDS: INSULIN HUMAN NPH SC SCH (08:50)
[2021-10-09] MEDS: INSULIN ASPART PER UNIT SC SCH ×4 (08:58→21:02)
[2021-10-09] MEDS: ALBUMIN 5% 250 ML IV SCH ×2 (08:59→10:07)
[2021-10-09] MEDS ORDERED: ENOXAPARIN INJ 40 MG/0.4 ML SYR SQ SCH (09:00)
[2021-10-09] MEDS ORDERED: FLUTICASONE/VILANTEROL 100/25MCG 14 PUFFS/INHALER INH SCH (09:00)
[2021-10-09] MEDS ORDERED: ICU PROTOCOL FOR HYPERGLYCEMIA SCH (09:00)
[2021-10-09] MEDS: oxyCODONE HCL IR 5 MG TAB (IMMEDIATE RELEASE) PO PRN ×2 (09:06→17:10)
[2021-10-09 09:14] LABS: Estimated Average Glucose 126 mg/dl
--- NOTE | 2021-10-09 09:15 | Critical Care Progress Note ---
Date of Service October 09, 2021 Assessment & Plan (1) Pneumonia: Plan: Reason Critically Ill: 60-year-old male with a past medical history of severe bullous emphysema and COPD presenting to the hospital due to acute pneumonia and combined acute on chronic hypoxemic and hypercapnic respiratory failure Neuro - Idiopathic polyneuropathy, chronic pain syndrome, Depression, metabolic encephalopathy CAM ICU: Negative - No focal deficits - Follow mental status with treatment - Currently able to protect his airway and verbalize needs - Continue PRN narcotics with his oxycodone- IV morphine if NPO or unable to take medications - Continue Gabapentin in the AM if mentation improves - Continue his Carbamazepine Cardiac - HYPOTENSION, SEPSIS, ELEVATED TROPONIN - SEPSIS secondary from Pneumonia- bacterial presumed - SIRS- 3 qSOFA- 3 Post 3Liters crystalloid infusion - Maintain MAS > 65- goal directed fluid assessment - Bolus for decrease UO, MAPS <65, POCUS exam or NICOM assessment - Lactate negative- 1.8 - Continue supportive care and antibiotics follow biomarkers - Vasopressors for MAP >65 - Trend HScTNI- likely demand type II - ECG obtain on arrival to ICU- trend q6 hour HScTNI until downtrend - Normosol 80ml/hr for one liter Respiratory - Multifocal Bacterial PNA greatest left upper lobe, COPD bullous emphysema, chronic oxygen therapy, chronic respiratory failure - Acute on chronic respiratory failure secondary to pneumonia- Not acute exacerbation of COPD - Continue broad spectrum antibiotics - de-escalate with culture results - MRSA negative - Respiratory biofire negative - BiPAP- as needed for respiratory distress, tachypnea/hypoxia- goal SPO2 88% and RR <28 - Supplemental oxygen to maintain SPO2 88-92% - Continue Pulmicort and duo nebs. - Home meds- BREO, SPIRIVA, ALBUTEROL/IPRATROPIUM -Continue IV methylprednisone. GI - No acute needs- HX cirrhosis, GERD - Diet Carb consistent - PPI while on steroids - No known Varices RENAL/LYTES - YOON type II, HYPOMAG - YOON in the setting of hypotension - Replete intravascular volume and electrolytes- likely exacerbated by colon prep on and feeling ill not able to keep up with intake - As above - Follow UO - bladder scan PRN - Pool if vasopressors added or continued resuscitation needed MSK: L4-L5 herniation with radiculopathy ENDO - TYPE II DM, HYPOTHYROID - ICU glycemic protocol- goal < 180mg/dl - Continue Synthroid HEME - Leukopenia, anemia. RA - leukopenia likely secondary to sepsis - No acute blood loss noted- recent colonoscopy noted hemorrhoids, and rectal polyp - Continue FESO4 tabs MCV normal - - HOLD methotrexate ID - PNA- bacterial - Elevated PCT - ESR elevated, but also with history of RA - Follow biomarkers q72 hours - await culture results- blood - sputum sample not sent prior to initiation of abx - Zosyn, Azithro, Vanco LINES/IV ACCESS - - PIV Continue use of these lines DVT PROPHYLAXIS - - HEPARIN 5000 units sub q q12 Patient DNR, but okay for intubation as noted above. I have personally spent 36 minutes of critical care time in the direct management of this patient. This is a life/limb threatening event. This includes time spent evaluating patient, direct bedside care, chart review, placing orders, interpretation of diagnostic studies, discussion with consultants, patient, and family members, as well as other required patient management activities. This time is exclusive of all separately billable procedures, and teaching time and separate from and in addition to any other critical care service time. Thank you for allowing us to participate in the care of this patient. Please refer to my attending physician's documentation for any further recommendations. (2) Hypoxemic respiratory failure, chronic: (3) Acute hypotension: (4) Lumbar disc herniation with radiculopathy: (5) Rheumatoid arthritis: (6) Chronic pain syndrome: (7) Hypothyroidism: (8) T2DM (type 2 diabetes mellitus): Admission and Anticipated Discharge Date Admission Date: October 08, 2021 Subjective Patient seen and examined at bedside. He has mildly increased work of breathing and is currently on BiPAP. He denies any chest pain, fevers, chills or night sweats overnight or tonight. He did note chest pain for the past month and increasing shortness of breath. His encouraged him to go to the ER. I had a lengthy discussion with him today regarding CODE STATUS. He indicates that he would like to be DNR in the event of a cardiac arrest, but would like to be intubated if he has worsening respiratory failure. Review of Systems Review of Systems: All systems reviewed & are unremarkable except as noted in HPI & below Physical Exam Physical Exam: PHYSICAL EXAM: General: Moderate distress with mildly increased work of breathing. Head: Normocephalic, atraumatic ENT: PERRLA, EOMI, mucous membranes dry Neuro: AAO x 3, speech clear and appropriate, strength intact bilaterally 5/5, sensation intact and equal all extremities and dermatomes, no pronator drift Chest: equal rise and fall of the chest, inspiratory and expiratory wheeze throughout bilaterally with scattered rhonchi LT>RT Cardiac: Regular rate and rhythm, telemetry reviewed- sinus tach, skin warm dry, cap refill <3 seconds, peripheral pulses +2 no JVD, no murmur, no edema GI: NABS x 4 quadrants, soft, nontender to palpation, no rebound, guarding or tenderness : Spontaneously voiding, no pain, no CVA tenderness, Extremities: Normal inspection, no peripheral edema or erythema, calfs nontender to palpation Psych: Normal mood and affect Skin: no rash or erythema Results & Data Results & Data ([facility]) Vital Signs (Past 12 Hours) Vital Signs Temp Pulse Pulse Resp BP BP Pulse Ox 10/09/21 08:00 36.4 C L 86 26 H 101/63 92 10/09/21 07:30 87 32 H 101/66 95 10/09/21 07:15 87 86 27 H 92 10/09/21 07:00 88 29 H 109/68 99 10/09/21 06:00 83 10/09/21 04:00 85 30 H 93 10/09/21 03:00 36.6 C 94 H 26 H 92/62 L 93 10/09/21 02:30 94 H 24 90/62 L 94 10/09/21 02:19 96 H 26 H 92 10/09/21 02:10 92 H 23 102/66 93 10/09/21 02:00 92 H 23 75/50 L 93 10/09/21 01:40 97 H 29 H 83/59 L 91 10/09/21 01:30 95 H 23 78/52 L 92 10/09/21 01:02 100 H 31 H 85/47 L 90 10/09/21 01:00 101 H 26 H 73/49 L 90 10/09/21 00:47 37 C 98 H 28 H 94/61 L 92 10/09/21 00:36 101 H 26 H 91 10/09/21 00:30 103 H 28 H 88 L 10/09/21 00:24 37 C 102 H 29 H 84/57 L 96 10/09/21 00:12 102 H 10/08/21 23:45 102 H 25 H 94/58 L 95 10/08/21 23:30 100 H 23 95/58 L 96 10/08/21 23:15 104 H 26 H 91/57 L 96 10/08/21 23:05 107 H 33 H 98/65 L 93 10/08/21 23:03 98/65 L 10/08/21 23:00 27 H 10/08/21 22:50 37 C 99 H 31 H 98/58 L 94 10/08/21 22:39 100 H 23 91/54 L 97 10/08/21 21:31 121 H 23 96/54 L 96 Pulse Ox 10/09/21 08:00 10/09/21 07:30 10/09/21 07:15 10/09/21 07:00 10/09/21 06:00 10/09/21 04:00 10/09/21 03:00 10/09/21 02:30 10/09/21 02:19 10/09/21 02:10 10/09/21 02:00 10/09/21 01:40 10/09/21 01:30 10/09/21 01:02 10/09/21 01:00 10/09/21 00:47 10/09/21 00:36 10/09/21 00:30 10/09/21 00:24 10/09/21 00:12 95 10/08/21 23:45 10/08/21 23:30 10/08/21 23:15 10/08/21 23:05 10/08/21 23:03 10/08/21 23:00 10/08/21 22:50 10/08/21 22:39 10/08/21 21:31 Coding Level of Care Code Critical Care 1st 30-74 mins Diagnoses Pneumonia J18.9 Laterality: left Lung location: upper lobe of lung Pneumonia type: due to unspecified organism Hypoxemic respiratory failure, chronic J96.11 Acute hypotension I95.9 Lumbar disc herniation with radiculopathy M51.16 Rheumatoid arthritis M06.9 Chronic pain syndrome G89.4 Hypothyroidism E03.9 T2DM (type 2 diabetes mellitus) E11.9 Time Spent (min) 36 (1) Pneumonia Laterality: left Lung location: upper lobe of lung Pneumonia type: due to unspecified organism Qualified Code(s): J18.9 - Pneumonia, unspecified organism
[2021-10-09] MEDS: POTASSIUM CHLORIDE CRTAB 20 MEQ TABCR PO SCH ×2 (10:08→13:57)
[2021-10-09] MEDS ORDERED: VANCOMYCIN HCL 1,250 MG in SODIUM CHLORIDE 0.9% 250 ML IV SCH (12:00)
[2021-10-09] MEDS: VANCOMYCIN HCL 1,000 MG in SODIUM CHLORIDE 0.9% 250 ML IV SCH ×2 (12:15→21:42)
[2021-10-09] MEDS: busPIRone 15 MG TAB PO SCH ×2 (13:57→20:59)
--- NOTE | 2021-10-09 14:04 | Pharmacy Report ---
Pharmacy Glycemic Short Note 2 - Date of Service October 09, 2021 - Glycemic Short BSG Results (Last 24 hours): 10/08/21 10/08/21 10/09/21 20:05 20:15 00:24 Glucose 123 H POC Glucose 189 H POC Glucose (other) 130 H 10/09/21 10/09/21 10/09/21 05:07 07:31 13:00 Glucose 220 H 208 H POC Glucose 137 H POC Glucose (other) OUTPATIENT ANTIDIABETIC REGIMEN: * N/a * HbA1c = 6.0% (10/09/21) ASSESSMENT: * 60 yo M admitted yesterday secondary to shortness of breath. Transferred to ICU last evening for worsening respiratory status. Pharmacy was automatically consulted to assist with inpatient glycemic management secondary to ICU hyperglycemia protocol this AM. Patient is currently requiring BiPAP and desaturates when removed. Also requiring Levophed to maintain MAP > 65. Has been made NPO status secondary to desaturating when BiPAP removed. * Patient received 16 mg of IV dexamethasone in the ED and was started on SoluMedrol 40 mg IV every 8 hours upon transfer to ICU. Steroids likely the cause of hyperglycemia at this point. Gave a one time dose of 0.4 units/kg NPH this AM and started Novolog based on weight and stress of 2. Will monitor today and make adjustments as necessary. PLAN FOR INPATIENT GLYCEMIC CONTROL: * Basal insulin * NPH 25 units SQ x 1 * Bolus insulin * NovoLog per scale ACHS or Q6hrs while NPO * Goal Range: Low 110 mg/dL - High 140 mg/dL * Correction Factor: 25 mg/dL/unit * Nutritional / Prandial insulin per carb ratio of 1 unit per 8 grams CHO consumed
--- NOTE | 2021-10-09 14:14 | Pharmacy Report ---
Pharmacy Vanc AUC Short Note - Date of Service October 09, 2021 - Assessment & Plan Assessment 60 year old M receiving Vancomycin, Zosyn and Azithromycin for treatment of pneumonia. * PMHx significant for current every day smoker, COPD, T2DM, RA on Methotrexate, alcoholic cirrhosis, and equivocal TB tests. * TB rule out. Afebrile without leukocytosis. Renal fxn improving today (SCr 1.41-->1.11). Procal slightly improved (9.42-->9.08). MRSA nasal positive. * Blood, urine and sputum cultures pending. Sputum and blood cultures drawn after receiving antibiotics. Plan Vancomycin * AUC/ISAIAS is the preferred PK/PD target for vancomycin * AUC guided dosing is effective and associated with decreased risk of nephrotoxicity compared to traditional trough targets * [place] dose [place] 1250 mg IV x 1 given in ED * Maintenance dose of 1000 mg IV every 12 hours * Dose is predicted to achieve AUC/ISAIAS > 600 mg/L.hr and is associated with a 26% risk of nephrotoxicity * However, prefer to have Vanc level therapeutic more quickly given severity of illness. Will order an early trough to monitor therapy. * Trough level ordered for 10/10/21 prior to 1000 dose. Zosyn * 4.5 g IV x 1 followed by 4.5 g IV every 8 hours based on severity of illness - appropriate Azithromycin * 500 mg IV every 24 hours - appropriate Pharmacy will continue to follow and will adjust dose/frequency as necessary. Thank you.
--- NOTE | 2021-10-09 16:26 | Medical Student Progress Note ---
Date of Service October 09, 2021 Assessment & Plan (1) Pneumonia: Plan: 60-year-old male with a past medical history of severe bullous emphysema and COPD presenting to the hospital due to acute on chronic respiratory failure, requiring bipap, vasopressors, and ICU care -evidence of multifocal pneumonia with sever emphysema on CT and CXR - positive MRSA swab -continue azythro, vanc/zosyn -continue methylprednisone in the setting of COPD exacerbation -awaiting TB testing -currently on airborne isolation Laterality: left Lung location: upper lobe of lung Pneumonia type: due to unspecified organism Qualified Code(s): J18.9 - Pneumonia, unspecified organism (2) Hypoxemic respiratory failure, chronic: Plan: - continue Bipap - Continue Pulmicort and duo nebs. - continue home SPIRIVA, ALBUTEROL/IPRATROPIUM -Continue IV methylprednisone. (3) Acute hypotension: Plan: - SIRS- 3 qSOFA- 3 - Continue supportive care and antibiotics follow biomarkers - continue Vasopressors, goal MAP >65 (4) Chronic pain syndrome: Plan: -PRN pain medication as needed Plan: Diet: NPO Code: conditional DNR DVT PPx: heparin Admission and Anticipated Discharge Date Admission Date: October 08, 2021 Supervising Attestation chart reviewed case d/w N Kawmi MS4. pt not directly seen due to ICU management and isolation precautions. ICU input greatly appreciated. CT reviewed. dense consolidation. acute hypoxic respiratory failure due to pneumonia - broad abx, supportive care, otherwise as above Subjective Mr Park continues to have significant respiratory distress. Still on Bipap. Currently placed on airborne isolation awaiting Tb testing Review of Systems Respiratory: as per Subjective / HPI Cardiovascular: + dyspnea; no chest pain Physical Exam Constitutional: WD/WN, vitals as above + ill appearing Eyes: PERRL, conjunctivae normal, anicteric sclerae ENMT: external ear and nose normal, oropharynx normal Neck: normal visual inspection Respiratory: + respiratory distress, + labored breathing, + uses accessory muscles and + tachypneic Auscultation: + diminished lung sounds Cardiovascular: Rate/Rhythm: + tachycardic Gastrointestinal (Abdomen): normal bowel sounds, soft, nontender, no hepatosplenomegaly Psychiatric: A+Ox3, euthymic affect Results & Data ([facility]) Vital Signs (Past 12 Hours) Vital Signs Temp Pulse Pulse Resp BP Pulse Ox 10/09/21 14:00 87 30 H 104/58 L 90 10/09/21 13:00 87 26 H 102/56 L 90 10/09/21 12:00 82 25 H 103/68 94 10/09/21 11:54 87 31 H 91 10/09/21 11:00 56 L 23 111/67 95 10/09/21 10:00 78 22 99/60 L 93 10/09/21 09:00 89 33 H 102/64 90 10/09/21 08:00 36.4 C L 86 26 H 101/63 92 10/09/21 07:30 87 32 H 101/66 95 10/09/21 07:15 87 86 27 H 92 10/09/21 07:00 88 29 H 109/68 99 10/09/21 06:00 83
[2021-10-09] MEDS: AZITHROMYCIN 500 MG in DEXTROSE 5% 250 ML IV SCH (16:36)
[2021-10-09 19:19] LABS: HCO3 VBG 27 mmol/L; PCO2 VBG 68 mmHg (38-50); PO2 VBG 27 mmHg; pH VBG 7.21 (7.36-7.41)
[2021-10-09 19:21] LABS: Oxygen Saturation VBG < 60.0 %
[2021-10-09] MEDS: ICU ELECTROLYTE REPLACEMENT PROTOCOL SCH (20:52)
[2021-10-09] MEDS: busPIRone 7.5 MG TAB PO SCH (21:00)
[2021-10-09] MEDS: ROSUVASTATIN CALCIUM 5 MG TAB PO SCH (21:09)
[2021-10-10] MEDS: INSULIN ASPART PER UNIT SC SCH ×6 (00:10→21:24)
[2021-10-10] MEDS: ALBUT/IPRATROP 3MG/0.5MG NEB 3 ML VIAL INH SCH ×4 (00:30→20:12)
[2021-10-10] MEDS: methylPREDNISolone 40 MG in SYRINGE 0 ML IV SCH ×2 (01:36→09:49)
[2021-10-10] MEDS: PIPERACILLIN/TAZOBACTAM 4.5 GM in DEXTROSE 5% 100 ML IV SCH ×3 (01:37→18:01)
--- NOTE | 2021-10-10 04:33 | Billing Data ---
Date of Service October 10, 2021 Coding Level of Care Code Critical Care 1st 30-74 mins
[2021-10-10 04:40] LABS: iSTAT Allen Test Pass; iSTAT Art Bld Gas pCO2 Correct 51 mmHg (35-46); iSTAT Art Bld Gas pH Corrected 7.292 (7.35-7.45); iSTAT Arterial Blood Gas HCO3 25 meg/L (19-24); iSTAT Arterial Blood Gas pCO2 52 mmHg (35-46); iSTAT Arterial Blood Gas pH 7.29 (7.35-7.45); iSTAT Arterial Blood Gas pO2 74 mmHg (80-95); iSTAT Arterial Blood Gas pO2 C 73; iSTAT Carbon Dioxide 26 mmol/L (24-31); iSTAT FiO2 35 %; iSTAT Hematocrit 28 % (42-52); iSTAT Hemoglobin 9.5 g/dl (14.0-18.0); iSTAT Potassium 3.8 mmol/L (3.3-5.0); iSTAT Site R Radial; iSTAT Sodium 136 mmol/L (135-144)
[2021-10-10 05:47] LABS: Hematocrit (blood only) 28.9 % (42-52); Hemoglobin 9.2 g/dL (14.0-18.0); Mean Corpuscular Hemoglobin 31.7 pg (25-34); Mean Corpuscular Hgb Conc 31.8 g/dL (32-36); Mean Corpuscular Volume 99.7 fL (80-100); Mean Platelet Volume 10.5 fL (7.4-10.4); Platelet Count 350 K/uL (130-400); RDW Coefficient of Variation 16.8 % (11.5-14.5); RDW Standard Deviation 60.4 fL (36.4-46.3); White Blood Count 4.33 K/uL (4.8-10.8)
[2021-10-10] MEDS: LEVOTHYROXINE SODIUM 25 MCG TABLET PO SCH (05:54)
[2021-10-10 06:24] LABS: Echinocytes 1+; Immature Granulocytes # (auto) 0.05 K/uL (0.00-0.02); Immature Granulocytes % (auto) 1.2 %; Lymphocytes # (auto) 0.15 K/uL (1.2-3.4); Lymphocytes % (auto) 3.5 %; Monocytes # (auto) 0.27 K/uL (0.11-0.59); Monocytes % (auto) 6.2 %; Neutrophils # (auto) 3.86 K/uL (1.4-6.5); Neutrophils % (auto) 89.1 %
[2021-10-10 06:25] LABS: BUN Creatinine Ratio 24.1 (10-20); Calcium 8.4 mg/dl (8.5-10.1); Creatinine Clr Calc Pharmacy 81.1 ml/min; Est GFR (African American) 108.7 ml/min; Est GFR (Non-African American) 93.8 ml/min; Magnesium 2.2 mg/dl (1.7-2.4); Phosphorus 2.6 mg/dl (2.5-4.9); Potassium 4.4 mmol/L (3.5-5.1)
[2021-10-10] MEDS: ICU ELECTROLYTE REPLACEMENT PROTOCOL SCH (06:38)
[2021-10-10] MEDS: BUDESONIDE 0.25 MG/2 ML VIAL (PULMICORT) NEB SCH ×2 (07:22→20:12)
[2021-10-10] MEDS: NOREPINEPHRINE/D5W 8 MG/508 ML BAG IV SCH (08:02)
--- NOTE | 2021-10-10 08:17 | XRay Report ---
XR chest 1V portable CLINICAL HISTORY: f/u COMPARISON STUDY: Chest CT and chest radiograph October 09, 2021. FINDINGS: Severe emphysema is noted. No pneumothorax or pleural effusion is present. Dense left upper lobe consolidation is again noted. This has minimally improved. Interstitial thickening with a left lung is noted with mild left basilar opacity. Findings favor multifocal pneumonia. Cardiac size is no rmal. Mediastinal contours are normal. IMPRESSION: 1. Minimal improvement in extensive left upper lobe pneumonia. 2. Severe emphysema. ACT 112: Negative or not required by law. Electronically signed by: Sergei Beckwith M.D. 10/10/2021 8:16 AM
[2021-10-10] MEDS: UMECLIDINIUM BROMIDE 62.5MCG/BLISTER 7 PUFFS/INHALER INH SCH (08:53)
[2021-10-10] MEDS: ASPIRIN 81 MG ECTAB PO SCH (08:54)
[2021-10-10] MEDS: GABAPENTIN 100 MG CAP PO SCH ×4 (08:54→20:51)
[2021-10-10] MEDS: HEPARIN SOD 5,000 UNIT/0.5 ML VIAL SQ SCH ×2 (08:55→20:53)
[2021-10-10] MEDS: guaiFENesin 600 MG TABCR PO SCH ×2 (08:55→20:53)
[2021-10-10] MEDS: busPIRone 15 MG TAB PO SCH ×3 (08:56→20:49)
[2021-10-10] MEDS: GABAPENTIN 600 MG TAB PO SCH ×4 (08:56→20:52)
[2021-10-10] MEDS: DOCUSATE SODIUM 100 MG CAP PO SCH ×2 (08:56→20:59)
[2021-10-10] MEDS: SENNA 8.6 MG TAB PO SCH ×2 (08:56→20:55)
[2021-10-10] MEDS: carBAMazepine 100 MG CHEW TAB PO SCH ×2 (08:56→20:50)
[2021-10-10] MEDS: VENLAFAXINE HCL XR 150 MG CAPXR PO SCH (08:57)
[2021-10-10] MEDS: VENLAFAXINE HCL XR 75 MG CAPXR PO SCH (08:57)
[2021-10-10] MEDS ORDERED: INSULIN HUMAN NPH SC SCH (09:05)
[2021-10-10] MEDS ORDERED: NORMOSOL-R 500 ML IV SCH (09:15)
--- NOTE | 2021-10-10 09:22 | Critical Care Progress Note ---
Date of Service October 10, 2021 Assessment & Plan (1) Pneumonia: Plan: Reason Critically Ill: 60-year-old male with a past medical history of severe bullous emphysema and COPD presenting to the hospital due to acute pneumonia and combined acute on chronic hypoxemic and hypercapnic respiratory failure Neuro - Idiopathic polyneuropathy, chronic pain syndrome, Depression, metabolic encephalopathy CAM ICU: Negative - No focal deficits - Continue Gabapentin - Continue his Carbamazepine Cardiac - HYPOTENSION, SEPSIS, ELEVATED TROPONIN - SEPSIS secondary from Pneumonia- bacterial presumed -We will give a bolus of 500 cc Normosol to help wean off Levophed. Respiratory - Multifocal Bacterial PNA greatest left upper lobe, COPD bullous emphysema, chronic oxygen therapy, chronic respiratory failure - Acute on chronic respiratory failure secondary to pneumonia- Not acute exacerbation of COPD - Continue broad spectrum antibiotics - de-escalate with culture results - MRSA positive - Respiratory biofire negative - BiPAP- as needed for respiratory distress, tachypnea/hypoxia- goal SPO2 88% and RR <28 - Supplemental oxygen to maintain SPO2 88-92% - Continue Pulmicort and duo nebs. - Home meds- BREO, SPIRIVA, ALBUTEROL/IPRATROPIUM -De-escalate methylprednisolone to 40 mg daily from 3 times daily. -Continue airborne isolation precautions given concern of possible TB. GI - No acute needs- HX cirrhosis, GERD - Diet Carb consistent - PPI while on steroids - No known Varices RENAL/LYTES - YOON type II, HYPOMAG -YOON resolved with fluids. - Replete intravascular volume and electrolytes- likely exacerbated by colon prep on and feeling ill not able to keep up with intake MSK: L4-L5 herniation with radiculopathy ENDO - TYPE II DM, HYPOTHYROID - ICU glycemic protocol- goal < 180mg/dl - Continue Synthroid HEME - Leukopenia, anemia. RA - leukopenia likely secondary to sepsis - No acute blood loss noted- recent colonoscopy noted hemorrhoids, and rectal polyp - Continue FESO4 tabs MCV normal - - HOLD methotrexate ID - PNA- bacterial - Elevated PCT - ESR elevated, but also with history of RA - Follow biomarkers q72 hours - await culture results- blood -QuantiFERON gold pending. AFB sputum cultures pending. Thus far sta phylococcal species growing. - Zosyn, Azithro, Vanco LINES/IV ACCESS - - PIV Continue use of these lines DVT PROPHYLAXIS - - HEPARIN 5000 units sub q q12 Patient DNR, but okay for intubation as noted above. Okay to downgrade once patient is off of Levophed. (2) Hypoxemic respiratory failure, chronic: (3) Acute hypotension: (4) Lumbar disc herniation with radiculopathy: (5) Rheumatoid arthritis: (6) Chronic pain syndrome: (7) Hypothyroidism: (8) T2DM (type 2 diabetes mellitus): Admission and Anticipated Discharge Date Admission Date: October 08, 2021 Subjective Patient seen and examined. Respiratory status improved compared to yesterday. Patient denies any chest pain. Mild conversational dyspnea. Appetite is poor. He has been n.p.o. He remains on low-dose Levophed. Review of Systems Review of Systems: All systems reviewed & are unremarkable except as noted in HPI & below Physical Exam Physical Exam: PHYSICAL EXAM: General: No significant distress. Head: Normocephalic, atraumatic ENT: PERRLA, EOMI, mucous membranes dry Neuro: AAO x 3, speech clear and appropriate, strength intact bilaterally 5/5, sensation intact and equal all extremities and dermatomes, no pronator drift Chest: equal rise and fall of the chest, inspiratory and expiratory wheeze throughout bilaterally with scattered rhonchi LT>RT Cardiac: Regular rate and rhythm, telemetry reviewed- sinus tach, skin warm dry, cap refill <3 seconds, peripheral pulses +2 no JVD, no murmur, no edema GI: NABS x 4 quadrants, soft, nontender to palpation, no rebound, guarding or tenderness : Spontaneously voiding, no pain, no CVA tenderness, Extremities: Normal inspection, no peripheral edema or erythema, calfs n ontender to palpation Psych: Normal mood and affect Skin: no rash or erythema Results & Data Results & Data ([facility]) Vital Signs (Past 12 Hours) Vital Signs Temp Pulse Pulse Pulse Resp BP Pulse Ox 10/10/21 08:00 101 H 26 H 111/66 94 10/10/21 07:30 97 H 15 108/66 98 10/10/21 07:25 98 H 22 93 10/10/21 07:24 94 H 10/10/21 07:01 98 H 24 107/58 L 92 10/10/21 07:00 96 H 25 H 90 10/10/21 05:00 80 21 105/60 96 10/10/21 04:30 84 20 103/62 95 10/10/21 04:00 36.7 C 91 H 19 110/69 94 10/10/21 03:30 76 19 102/65 96 10/10/21 03:00 79 21 104/63 94 10/10/21 02:45 71 21 95 10/10/21 02:30 77 22 100/60 94 10/10/21 02:00 78 22 94/57 L 94 10/10/21 01:30 76 22 99/61 L 94 10/10/21 01:00 75 19 97/62 L 94 10/10/21 00:30 76 76 20 99/64 L 94 10/10/21 00:00 83 18 110/66 94 10/09/21 23:30 85 20 105/68 94 10/09/21 23:23 86 10/09/21 23:00 87 22 104/65 94 10/09/21 22:30 82 20 101/63 93 10/09/21 22:20 89 26 H 93 10/09/21 22:00 94 H 28 H 115/65 87 L 10/09/21 21:30 98 H 21 106/60 92 Coding Level of Care Code 21673 Subseq Hosp Care Lvl 3 Diagnoses Pneumonia J18.9 Laterality: left Lung location: upper lobe of lung Pneumonia type: due to unspecified organism Hypoxemic respiratory failure, chronic J96.11 Acute hypotension I95.9 Lumbar disc herniation with radiculopathy M51.16 Rheumatoid arthritis M06.9 Chronic pain syndrome G89.4 Hypothyroidism E03.9 T2DM (type 2 diabetes mellitus) E11.9 (1) Pneumonia Laterality: left Lung location: upper lobe of lung Pneumonia type: due to unspecified organism Qualified Code(s): J18.9 - Pneumonia, unspecified organism
[2021-10-10] MEDS ORDERED: VANCOMYCIN TROUGH ONE (09:30)
[2021-10-10] MEDS: INSULIN HUMAN NPH SC SCH (09:49)
[2021-10-10] MEDS: PANTOprazole 40 MG in SYRINGE 0 ML IV SCH ×2 (10:00→20:54)
[2021-10-10] MEDS ORDERED: methylPREDNISolone 40 MG in SYRINGE 0 ML IV ONE (10:00)
--- NOTE | 2021-10-10 10:29 | Pharmacy Report ---
Pharmacy Glycemic Short Note 2 - Date of Service October 10, 2021 - Glycemic Short BSG Results (Last 24 hours): 10/09/21 10/09/21 10/09/21 13:00 16:41 20:20 Glucose POC Glucose 137 H 125 H POC Glucose (other) 145 H 10/10/21 10/10/21 10/10/21 00:05 03:53 05:16 Glucose 109 H POC Glucose 135 H 119 H POC Glucose (other) 10/10/21 07:55 Glucose POC Glucose 117 H POC Glucose (other) OUTPATIENT ANTIDIABETIC REGIMEN: * N/a * HbA1c = 6.0% (10/09/21) ASSESSMENT: 10/10: * Mr. Park received a total of 29 units of insulin yesterday (25 units NPH + 4 units bolus). BSGs well controlled. * Fasting BSG was well controlled at 117 mg/dL this AM. Stressors are changing: diet ordered, SoluMedrol reduced to 40 mg IV daily. Levophed still running. Remains on antibiotics for pneumonia. * Given reduced dose of NPH this morning when he was still NPO. Now that diet ordered and being tolerated, may require more NPH today. Will empirically tighten Novolog and monitor lunch BSG for addition of NPH. 10/09: * 60 yo M admitted yesterday secondary to shortness of breath. Transferred to ICU last evening for worsening respiratory status. Pharmacy was automatically consulted to assist with inpatient glycemic management secondary to ICU hyperglycemia protocol this AM. Patient is currently requiring BiPAP and desaturates when removed. Also requiring Levophed to maintain MAP > 65. Has been made NPO status secondary to desaturating when BiPAP removed. * Patient received 16 mg of IV dexamethasone in the ED and was started on SoluMedrol 40 mg IV every 8 hours upon transfer to ICU. Steroids likely the cause of hyperglycemia at this point. Gave a one time dose of 0.4 units/kg NPH this AM and started Novolog based on weight and stress of 2. Will monitor today and make adjustments as necessary. PLAN FOR INPATIENT GLYCEMIC CONTROL: * Basal insulin * NPH 12 units SQ x 1 * Bolus insulin * NovoLog per scale ACHS or Q6hrs while NPO * Goal Range: Low 110 mg/dL - High 140 mg/dL * Correction Factor: 25 mg/dL/unit * Nutritional / Prandial insulin per carb ratio of 1 unit per 8 grams CHO consumed
[2021-10-10] MEDS: VANCOMYCIN HCL 1,000 MG in SODIUM CHLORIDE 0.9% 250 ML IV SCH ×2 (13:08→20:59)
--- NOTE | 2021-10-10 13:09 | Pharmacy Report ---
Pharmacy Vanc AUC Short Note - Date of Service October 10, 2021 - Assessment & Plan Assessment 60 year old M receiving Day #3 of Vancomycin, Zosyn and Azithromycin for treatment of pneumonia. * PMHx significant for current every day smoker, COPD, T2DM, RA on Methotrexate, alcoholic cirrhosis, and equivocal TB tests. * TB rule out. Afebrile without leukocytosis. Renal fxn continues to improve (SCr 1.41-->1.11-->0.87). MRSA nasal positive. * Preliminary sputum culture growing Staph species. Plan Vancomycin * AUC/ISAIAS is the preferred PK/PD target for vancomycin * AUC guided dosing is effective and associated with decreased risk of nephrotoxicity compared to traditional trough targets * Trough level of 15.3 mcg/mL is therapeutic. * Continue dose of 1000 mg IV every 12 hours * Trough level ordered for 10/11/21 Zosyn * 4.5 g IV x 1 followed by 4.5 g IV every 8 hours based on severity of illness - appropriate Azithromycin * 500 mg IV every 24 hours - appropriate Pharmacy will continue to follow and will adjust dose/frequency as necessary. Thank you.
--- NOTE | 2021-10-10 14:08 | Hospitalist Progress Note ---
Date of Service October 10, 2021 Assessment & Plan (1) Pneumonia: Plan: 60-year-old male past medical history significant for severe bullous emphysema and COPD presenting to the hospital due to acute on chronic hypoxemic and hypercapnic respiratory failure. The cause of his acute decompensation thought to be a multifocal community-acquired PNA and subsequent COPD exacerbation. He was admitted directly to the ICU for vasoactive medication management. Weaned off vasopressors at noon on 10/10/21. Acute on chronic hypoxemic and hypercapnic respiratory failure - secondary to multifocal PNA + acute exacerbation of COPD - ABG 10/10/21 : pH 7.27, bicarb 27, pCO2 52; improving from admission - now off bipap and breathing on oxymask - continue respiratory support to maintain O2 88-92% Sepsis - SIRS and SOFA met on admission. - Source: Chest CT showing multifocal PNA - sputum culture growing staph species - blood cultures pending - urine culture negative - Resp Biofire panel neg - no cellulitis or diarrhea - Lactate not elevated, favorable prognostic indicator - Procal 9.4 on admission --> trending down - ESR > 130 on admission - CRP 36 on admission - nasal MRSA swab + - Continue Vancomycin (MRSA coverage), Zosyn (gram - including pseudomonal c overage) and Azithromycin (atypical coverage). Deescalate with culture results. COPD - in exacerbation due to multifocal PNA - continue Azithromycin 500mg IV for 3 days - Continue home inhaler regimen: Breo, Spiriva - continue IV methylprednisolone 40mg IV q8 --> deescalate as tolerated - DuoNebs scheduled every 6 hours and every 2 hours as needed for shortness of breath/wheezing. - given the extent of his PNA, anticipate mucous plugging as PNA is resolving; Mucinex, flutter valve and chest PT ordered - no home oxygen requirement YOON on CKD: resolved - Cr elevated to 1.4 on admission. Baseline Cr ~1.0 - likely pre-renal due to reduced perfusion in setting of acute sepsis - resolved with IVF resuscitation Leukopenia: - Likely secondary to sepsis; poor prognostic indicator - trend CBC Alcohol use disorder in remission, cirrhosis: - No indication for AWSS protocol at this time. - Coags relatively stable. - no known varices - complication of neuropathy; continue home dose gabapentin PAD - continue home dose statin + aspirin Depression/Anxiety - continue home dose venlafaxine, remeron and buspar Rheumatoid arthritis: - Hold methotrexate in the setting of sepsis secondary to bacterial infection. Chronic pain: - Patient may have his at home oxycodone and gabapentin if able to verbalize needs and swallow effectively otherwise IV morphine if n.p.o. DM2: - A1c 6.0 - short acting insulin ordered with carb ratio - carb consistent diet Hypothyroidism - continue home dose levothyroxine GERD: - PPI while on steroids. CODE STATUS: Conditional Code. Okay with intubation, does NOT want cardiac resuscitation FEN: Carb Consistent DM2 DVT prophylaxis: Heparin 5000 units SQ every 12 hours Dispo: Downgraded from ICU to Telemetry (2) Acute exacerbation of chronic obstructive pulmonary disease: (3) Respiratory failure: (4) History of alcohol use: (5) Rheumatoid arthritis: (6) Cirrhosis, alcoholic: (7) T2DM (type 2 diabetes mellitus): Admission and Anticipated Discharge Date Admission Date: October 08, 2021 Supervising Physician Co-Signing Physician Notes I personally examined the patient and verified all hinojosa points of history and exam, discussed case, and agree with decision making with Dr Sandhu. Feeling better. Still a lot of dyspnea on exertion and weakness, but was able to get out of bed. Ate about half of his lunch by the time I saw him. He is breathing is still labored, but he notes better than before. Vitals noted, in general he is awake and alert pleasant no distress does appear fatigued. HEENT normocephalic atraumatic mucous membranes moist. Breathing unlabored no accessory muscle use good effort. Skin shows no rashes no pallor or icterus Acute hypoxic respiratory failurerelated to very sizable pneumonia, with baseline COPD. Continue antibiotics and supportive care. Improving. Otherwise as above Subjective Patient improving - pressors discontinued at noon on 10/10. He is seated in bedside chair and eating lunch Review of Systems Review of Systems: All systems reviewed & are unremarkable except as noted in HPI & below Physical Exam Constitutional: WD/WN, vitals as above cooperative; no acute distress Eyes: + anicteric sclerae ENMT: external ear and nose normal, oropharynx normal Neck: normal visual inspection and trachea midline Respiratory: Auscultation: + rhonchi (L > R) and + wheezes (diffusely ) Cardiovascular: Rate/Rhythm: regular rhythm and + tachycardic Heart Sounds: normal S1 and normal S2 Gastrointestinal (Abdomen): normal bowel sounds, soft, nontender, no hepatosplenomegaly Musculoskeletal: Head/Neck/Chest: normocephalic and head atraumatic Skin: no rashes, warm and dry Neurologic: moves all extremities Psychiatric: A+Ox3, euthymic affect Results & Data Results & Data ([facility]) Vital Signs (Past 12 Hours) Vital Signs Temp Pulse Pulse Resp BP Pulse Ox 10/10/21 13:00 111 H 23 88 L 10/10/21 12:35 115 H 26 H 88 L 10/10/21 12:30 115 H 25 H 109/59 L 88 L 10/10/21 12:00 108 H 23 116/65 87 L 10/10/21 11:58 119 H 30 H 126/66 82 L 10/10/21 11:30 102 H 26 H 100/56 L 92 10/10/21 11:00 112 H 33 H 86 L 10/10/21 10:01 102 H 38 H 108/58 L 93 10/10/21 10:00 104 H 35 H 86 L 10/10/21 09:00 103 H 37 H 114/68 91 10/10/21 08:30 100 H 20 104/63 93 10/10/21 08:00 101 H 26 H 111/66 94 10/10/21 07:30 97 H 15 108/66 98 10/10/21 07:25 98 H 22 93 10/10/21 07:24 94 H 10/10/21 07:01 98 H 24 107/58 L 92 10/10/21 07:00 96 H 25 H 90 10/10/21 05:00 80 21 105/60 96 10/10/21 04:30 84 20 103/62 95 10/10/21 04:00 36.7 C 91 H 19 110/69 94 10/10/21 03:30 76 19 102/65 96 10/10/21 03:00 79 21 104/63 94 10/10/21 02:45 71 21 95 10/10/21 02:30 77 22 100/60 94 Resident Activity Tracking Resident Involvement: Resident Care Provided Care Provided: Adult Hospital Medicine (1) Respiratory failure Chronicity: acute Respiratory failure complication: hypoxia Qualified Code(s): J96.01 - Acute respiratory failure with hypoxia (2) Pneumonia Laterality: left Lung location: upper lobe of lung Pneumonia type: due to unspecified organism Qualified Code(s): J18.9 - Pneumonia, unspecified organism
[2021-10-10] MEDS ORDERED: methylPREDNISolone 40 MG in SYRINGE 0 ML IV SCH (14:30)
--- NOTE | 2021-10-10 15:32 | Electrocardiogram Report ---
Test Reason : Blood Pressure : / mmHG Vent. Rate : 136 BPM Atrial Rate : 136 BPM P-R Int : 138 ms QRS Dur : 094 ms QT Int : 278 ms P-R-T Axes : 081 091 082 degrees QTc Int : 418 ms Poor data quality, interpretation may be adversely affected Sinus tachycardia Premature atrial complexes Possible Left atrial enlargement Rightward axis Abnormal ECG When compared with ECG of 10-JUN-2021 10:56, Vent. rate has increased BY 46 BPM Reconfirmed by Tang Hills ([id number]) on 10/10/2021 3:48:10 PM Referred By: REFERRED SELF Confirmed By:Tang Hills
--- NOTE | 2021-10-10 15:53 | Electrocardiogram Report ---
Test Reason : Blood Pressure : / mmHG Vent. Rate : 104 BPM Atrial Rate : 104 BPM P-R Int : 154 ms QRS Dur : 104 ms QT Int : 368 ms P-R-T Axes : 072 081 085 degrees QTc Int : 483 ms Sinus tachycardia with Premature atrial complexes Possible Left atrial enlargement Low voltage QRS When compared with ECG of 08-OCT-2021 19:56, No significant change Confirmed by Tang Hills ([id number]) on 10/10/2021 3:52:49 PM Referred By: REFERRED SELF Confirmed By:Tang Hills
--- NOTE | 2021-10-10 16:41 | Billing Data ---
Date of Service October 10, 2021 Coding Level of Care Code 60944 Subseq Hosp Care Lvl 2
[2021-10-10] MEDS: CARBOHYDRATES FOR HYPOGLYCEMIA PO PRN ×2 (16:43→17:28)
[2021-10-10] MEDS: AZITHROMYCIN 500 MG in DEXTROSE 5% 250 ML IV SCH (16:50)
[2021-10-10] MEDS ORDERED: SODIUM CHLORIDE 0.9% 1000ML 500 ML IV ONE (18:05)
[2021-10-10] MEDS: busPIRone 7.5 MG TAB PO SCH (20:50)
[2021-10-10] MEDS: ROSUVASTATIN CALCIUM 5 MG TAB PO SCH (20:54)
[2021-10-11] MEDS: ALBUT/IPRATROP 3MG/0.5MG NEB 3 ML VIAL INH SCH ×4 (00:21→19:45)
[2021-10-11] MEDS: oxyCODONE HCL IR 5 MG TAB (IMMEDIATE RELEASE) PO PRN (02:14)
[2021-10-11] MEDS: PIPERACILLIN/TAZOBACTAM 4.5 GM in DEXTROSE 5% 100 ML IV SCH ×3 (02:15→18:04)
[2021-10-11] MEDS ORDERED: FUROSEMIDE 40 MG/4 ML VIAL IV STA (03:48)
[2021-10-11 03:53] LABS: iSTAT Allen Test Pass; iSTAT Art Bld Gas pCO2 Correct 52 mmHg (35-46); iSTAT Art Bld Gas pH Corrected 7.333 (7.35-7.45); iSTAT Arterial Blood Gas HCO3 27 meg/L (19-24); iSTAT Arterial Blood Gas pCO2 50 mmHg (35-46); iSTAT Arterial Blood Gas pH 7.34 (7.35-7.45); iSTAT Arterial Blood Gas pO2 61 mmHg (80-95); iSTAT Arterial Blood Gas pO2 C 63; iSTAT Carbon Dioxide 29 mmol/L (24-31); iSTAT Hematocrit 32 % (42-52); iSTAT Hemoglobin 10.9 g/dl (14.0-18.0); iSTAT Potassium 3.3 mmol/L (3.3-5.0); iSTAT Site L Radial; iSTAT Sodium 136 mmol/L (135-144)
[2021-10-11] MEDS ORDERED: FUROSEMIDE 40 MG/4 ML VIAL IV ONE (04:01)
--- NOTE | 2021-10-11 04:22 | Communication Note ---
Date of Service: October 11, 2021 Messaged about increased WOB and tachypnea 30s and HR 140s-150s. Patient states he woke up from nightmare and was very anxious. He denies etoh withdrawal con cerns. On exam: diffuse rhonchi, minimal crackles and bases. + accessory muscle use. Appeared anxious/shaking. Patient ripped off bipap because uncomfortable. Saturating 80s w/ dips to low 70s on high flow. cxr consistent w/ mucous plugging vs post obstructive pneumonia. Abx regimen is appropriate. Placed patient on bipap at lower pressure settings 8/4, fio2 90%. Consider discussion of bronchoscopy during morning. 5:30 AM. Not tolerating bipap. Tachypneic to 40s. Will require intubation. Notified ICU provider and ED provider. Patient intubated by ED provider. Upgraded to ICU status.
[2021-10-11] MEDS ORDERED: RAPID SEQUENCE INDUCTION BAG ONE (05:28)
[2021-10-11 05:35] LABS: Hematocrit (blood only) 32.9 % (42-52); Hemoglobin 10.8 g/dL (14.0-18.0); Mean Corpuscular Hemoglobin 32.9 pg (25-34); Mean Corpuscular Hgb Conc 32.8 g/dL (32-36); Mean Corpuscular Volume 100.3 fL (80-100); Mean Platelet Volume 10.7 fL (7.4-10.4); Platelet Count 428 K/uL (130-400); RDW Standard Deviation 60.9 fL (36.4-46.3); Red Blood Count 3.28 M/uL (4.7-6.1); White Blood Count 4.49 K/uL (4.8-10.8)
[2021-10-11] MEDS ORDERED: NOREPINEPHRINE/D5W 8 MG/508 ML IV ONE (05:42)
[2021-10-11] MEDS ORDERED: MIDAZOLAM HCL 125MG/250ML D5W ONE (05:59)
[2021-10-11 06:00] LABS: Basophils # (auto) 0.01 K/uL (0-0.2); Basophils % (auto) 0.2 %; Eosinophils # (auto) 0.02 K/uL (0-0.5); Eosinophils % (auto) 0.4 %; Immature Granulocytes # (auto) 0.08 K/uL (0.00-0.02); Immature Granulocytes % (auto) 1.8 %; Lymphocytes # (auto) 0.25 K/uL (1.2-3.4); Lymphocytes % (auto) 5.6 %; Monocytes % (auto) 2.2 %; Neutrophils # (auto) 4.03 K/uL (1.4-6.5); Neutrophils % (auto) 89.8 %
[2021-10-11] MEDS ORDERED: fentaNYL citrate 2,500 MCG/250 ML BAG IV ONE (06:00)
[2021-10-11] MEDS ORDERED: SODIUM BICARB 8.4% INJ 50 MEQ/50 ML SYR IV STA (06:01)
[2021-10-11] MEDS ORDERED: SODIUM BICARB 8.4% INJ 50 MEQ/50 ML SYR IV ONE ×2 (06:02→08:08)
[2021-10-11 06:06] LABS: BUN Creatinine Ratio 20.9 (10-20); Calcium 8.3 mg/dl (8.5-10.1); Creatinine Clr Calc Pharmacy 76.9 ml/min; Est GFR (African American) 105.8 ml/min; Est GFR (Non-African American) 91.3 ml/min; Magnesium 1.7 mg/dl (1.7-2.4); Potassium 3.3 mmol/L (3.5-5.1)
[2021-10-11] MEDS ORDERED: STAT IV Infusion **Titration per Protocol STA ×3 (06:28→14:36)
[2021-10-11] MEDS ORDERED: fentaNYL citrate 2,500 MCG/250 ML BAG IV SCH (06:30)
[2021-10-11] MEDS ORDERED: NOREPINEPHRINE/D5W 8 MG/508 ML BAG IV SCH (06:30)
--- NOTE | 2021-10-11 06:32 | Procedure Note ---
Procedure Note Date of Service October 11, 2021 Note EM PROCEDURE NOTE - Endotracheal Intubation PROCEDURE NOTE: Informed consent was obtained by the hospitalist. I was called to perform the intubation in the ICU. Verify Correct Patient: yes Procedure: Endotracheal intubation Indication: respiratory failure The procedure was done emergently. Description of the Procedure: The patient was seen and properly identified. The patient was pre-oxygenated but still hypoxic and intubated after rapid sequence induction with meds: etomidate and succinylcholine. Intubation was performed using a 3.0 fiberoptic Glidescope blade and a 7.5 cuffed endotracheal tube. The tube was visualized going through the cords and secured with the 23 cm paula at the lips. The patient had good bilateral breath sounds in the axillae with good chest rise. Proper ET tube placement was also confirmed by end tidal CO2 detector. The patient tolerated the procedure well although was still critically ill. Oxygen saturations improved, however pt still tachy cardic. Coding
[2021-10-11 06:38] LABS: iSTAT Allen Test Pass; iSTAT Art Bld Gas pCO2 Correct 73 mmHg (35-46); iSTAT Art Bld Gas pH Corrected 7.199 (7.35-7.45); iSTAT Arterial Blood Gas HCO3 28 meg/L (19-24); iSTAT Arterial Blood Gas pCO2 71 mmHg (35-46); iSTAT Arterial Blood Gas pH 7.21 (7.35-7.45); iSTAT Arterial Blood Gas pO2 67 mmHg (80-95); iSTAT Arterial Blood Gas pO2 C 69; iSTAT Carbon Dioxide 30 mmol/L (24-31); iSTAT FiO2 80 %; iSTAT Hematocrit 31 % (42-52); iSTAT Hemoglobin 10.5 g/dl (14.0-18.0); iSTAT Potassium 3.2 mmol/L (3.3-5.0); iSTAT Site L Radial; iSTAT Sodium 138 mmol/L (135-144)
--- NOTE | 2021-10-11 06:48 | Procedure Note ---
Procedure Note Date of Service October 11, 2021 Note INTERNAL JUGULAR CENTRAL LINE PROCEDURE NOTE: Procedure: Internal Jugular Central Line Placement Attending: Dr. Mota Provider: MARLIN Middleton Indication: Central Drug Administration, Poor Venous Access Anesthesia: None Line placed emergently following severe hypotension requiring pressor support following intubation A time-out was completed verifying correct patient, procedure, site, positioning, and implants(s) or special equipment if applicable. Patients right neck was cleansed and draped in the typical sterile fashion using Chloraprep. The Internal Jugular Vein and Carotid Artery were identified using ultrasound. The superficial tissue was anesthetized using 3 mL of 1% lidocaine without epinephrine under direct visualization with the ultrasound. After adequate anesthetization was achieved, the Internal Jugular vein was cannulated under direct ultrasound guidance using an introducer needle on a syringe. Good venous blood return was maintained prior to removal of syringe from introducer needle. Using Seldinger Technique, a guide wire was advanced through the introducer needle without resistance. The introducer needle was removed and ultrasound images were obtained of the guide wire within the Internal Jugular Vein and saved to the patients medical record. A small incision was made in penetrating fashion at the guide wire insertion site utilizing an 11 blade scalpel. The dilator was advanced to the vessel without resistance. The dilator was exchanged for the triple lumen catheter which was advanced into the vessel without resistance. The guide wire was removed intact from the catheter without issue. Claves were placed on each catheter tip with confirmation of good blood flow from each lumen. Each port was easily flushed with sterile saline. The catheter was placed at 16 cm and sutured in place. BioPatch was applied to the catheter and a sterile Tegaderm dressing was applied over the catheter with careful attention to sterility. Patient tolerated procedure well. No immediate complications were met. Post procedure x-ray was completed, placement was appropriate and no pneumothorax was noted. Images obtained are saved for permanent record Procedural Ultrasound Guidance: Procedure Date: 10/11/2021 Attending: Dr. Mota Provider: MARLIN Middleton Artery AND Vein visualized: Yes Compressible Vein: Yes Guidewire or Short Catheter seen in vein prior to dilation: Yes Line confirmed in Vein with ultrasound: Yes Images obtained are saved for permanent record. Coding CPT Codes Tubes, Drains, and Vasc Access - Tubes, Drains, and Vasc Access: [id number] Place catheter in vein superior or inferior vena cava ([id number]) Tubes, Drains, and Vasc Access - Tubes, Drains, and Vasc Access: [id number] Ultrasound Guidance For Vascular ([id number]) [facility] Procedure Codes (Charges) Tubes, Drains, and Vasc Access Procedure 1: Tubes, Drains, and Vasc Access: [id number] Place catheter in vein superior or inferior vena cava Procedure 2: Tubes, Drains, and Vasc Access: [id number] Ultrasound Guidance For Vascular
--- NOTE | 2021-10-11 06:50 | Hospitalist Progress Note ---
Date of Service October 11, 2021 Assessment & Plan (1) Pneumonia: Plan: 60-year-old male past medical history significant for severe bullous emphysema and COPD presenting to the hospital due to acute on chronic hypoxemic and hypercapnic respiratory failure. The cause of his acute decompensation thought to be a multifocal community-acquired PNA and subsequent COPD exacerbation. He was admitted directly to the ICU for vasoactive medication management. Acute on chronic hypoxemic and hypercapnic respiratory failure - secondary to multifocal PNA + acute exacerbation of COPD - MRSA+ from sputum culture -Overnight with worsening respiratory status requiring intubation -Underwent bronchoscopy 10/11/21 wiwth aspiration of L upper lobe mucous plug -Continue Versed and Fentanyl while intubated Hypotension -Multifactorial - sedation vs sepsis -Continue phenylephrine and vasopressin per ICU Sepsis - SIRS and SOFA met on admission. - Source: Chest CT showing multifocal PNA - sputum culture growing MRSA - blood cultures pending - urine culture negative - Resp Biofire panel neg - no cellulitis or diarrhea - Procal 9.4 on admission - ESR > 130 on admission - CRP 36 on admission - nasal MRSA swab + - Continue Vancomycin (MRSA coverage), Zosyn (gram - including pseudomonal coverage) and Azithromycin (atypical coverage). COPD - in exacerbation due to multifocal PNA - continue Azithromycin 500mg IV for 3 days - Hold steroid inhalers - continue IV methylprednisolone 40mg IV QD - DuoNebs scheduled every 6 hours and every 2 hours as needed for shortness of breath/wheezing. - given the extent of his PNA, anticipate mucous plugging as PNA is resolving; Mucinex, flutter valve and chest PT ordered - no home oxygen requirement YOON on CKD: resolved - Cr elevated to 1.4 on admission. Baseline Cr ~1.0 - likely pre-renal due to reduced perfusion in setting of acute sepsis - resolved with IVF resuscitation Leukopenia: - Likely secondary to sepsis; poor prognostic indicator - trend CBC Alcohol use disorder in remission, cirrhosis: - No indication for AWSS protocol at this time. - Coags relatively stable. - no known varices - complication of neuropathy; continue home dose gabapentin PAD - continue home dose statin + aspirin Depression/Anxiety - Hold home dose venlafaxine, remeron and buspar while intubated Rheumatoid arthritis: - Hold methotrexate in the setting of sepsis secondary to bacterial infection. Chronic pain: - Patient may have his at home oxycodone and gabapentin if able to verbalize needs and swallow effectively otherwise IV morphine if n.p.o. DM2: - A1c 6.0 - short acting insulin ordered with carb ratio - carb consistent diet Hypothyroidism - continue home dose levothyroxine GERD: - PPI while on steroids. CODE STATUS: Conditional Code. Okay with intubation, does NOT want cardiac resuscitation FEN:NPO, D52+1/2 NSS 80ml/hr DVT prophylaxis: Heparin 5000 units SQ every 12 hours Dispo: ICU (2) Acute exacerbation of chronic obstructive pulmonary disease: (3) Respiratory failure: (4) History of alcohol use: (5) Rheumatoid arthritis: (6) Cirrhosis, alcoholic: (7) T2DM (type 2 diabetes mellitus): Admission and Anticipated Discharge Date Admission Date: October 08, 2021 Supervising Physician Co-Signing Physician Notes worsened - intubated. critical care managing. did not personally see today as ICU managing entirety of care. d/w Dr Sprague Acute hypoxic respiratory failurerelated to very sizable pneumonia, with baseline COPD. Continue antibiotics and supportive care. Otherwise as above Subjective Overnight patient with worsening respiratory status, ICU consulted, has since been intubated. Review of Systems Review of Systems: Unobtainable due to endotracheal tube Physical Exam Physical Exam: Physical exam deferred. Please see ICU physical exam for current day exam. Results & Data Results & Data ([facility]) Vital Signs (Past 12 Hours) Vital Signs Pulse Pulse Resp BP Pulse Ox 10/11/21 06:31 26 H 10/11/21 05:50 130 H 19 93 10/11/21 04:10 148 H 35 H 90 10/11/21 04:00 141 H 44 H 109/60 87 L 10/11/21 03:30 132 H 26 H 91 10/11/21 03:20 148 H 34 H 10/11/21 03:00 135 H 29 H 91 10/11/21 02:30 135 H 31 H 96 10/11/21 02:26 135 H 30 H 94 10/11/21 02:19 133 H 30 H 94 10/11/21 02:00 135 H 29 H 89 L 10/11/21 01:30 123 H 41 H 98 10/11/21 01:00 119 H 36 H 93 10/11/21 00:35 107 H 24 95 10/11/21 00:30 119 H 23 98 10/11/21 00:00 113 H 29 H 99/56 L 96 10/10/21 23:00 110 H 31 H 92 10/10/21 22:35 113 H 26 H 94 10/10/21 22:00 108 H 37 H 93 10/10/21 21:00 113 H 29 H 92 10/10/21 20:20 96 H 24 92 10/10/21 20:00 113 H 29 H 109/64 95 10/10/21 19:00 121 H 26 H 109/64 93 Resident Activity Tracking Resident Involvement: Resident Care Provided Care Provided: Adult Hospital Medicine (1) Respiratory failure Chronicity: acute Respiratory failure complication: hypoxia Qualified Code(s): J96.01 - Acute respiratory failure with hypoxia (2) Pneumonia Laterality: left Lung location: upper lobe of lung Pneumonia type: due to unspecified organism Qualified Code(s): J18.9 - Pneumonia, unspecified organism
[2021-10-11] MEDS: MIDAZOLAM HCL 125 MG/250 ML BAG IV SCH (06:51)
[2021-10-11] MEDS: LEVOTHYROXINE SODIUM 25 MCG TABLET PO SCH (06:52)
[2021-10-11] MEDS: DOCUSATE SODIUM 100 MG CAP PO SCH ×2 (07:41→20:16)
[2021-10-11] MEDS: ASPIRIN 81 MG ECTAB PO SCH (07:41)
[2021-10-11] MEDS: UMECLIDINIUM BROMIDE 62.5MCG/BLISTER 7 PUFFS/INHALER INH SCH (07:42)
[2021-10-11] MEDS: SENNA 8.6 MG TAB PO SCH ×2 (07:48→20:18)
[2021-10-11] MEDS: VENLAFAXINE HCL XR 75 MG CAPXR PO SCH (07:48)
[2021-10-11] MEDS: VENLAFAXINE HCL XR 150 MG CAPXR PO SCH (07:48)
[2021-10-11] MEDS: HEPARIN SOD 5,000 UNIT/0.5 ML VIAL SQ SCH ×2 (07:49→20:16)
[2021-10-11] MEDS: guaiFENesin 600 MG TABCR PO SCH ×2 (07:50→20:16)
[2021-10-11] MEDS: busPIRone 15 MG TAB PO SCH (07:50)
[2021-10-11] MEDS: GABAPENTIN 600 MG TAB PO SCH (07:50)
[2021-10-11] MEDS: GABAPENTIN 100 MG CAP PO SCH (07:50)
[2021-10-11] MEDS: carBAMazepine 100 MG CHEW TAB PO SCH (07:51)
[2021-10-11] MEDS: methylPREDNISolone 40 MG in SYRINGE 0 ML IV SCH (07:54)
[2021-10-11] MEDS: PANTOprazole 40 MG in SYRINGE 0 ML IV SCH ×2 (07:54→20:17)
[2021-10-11] MEDS: BUDESONIDE 0.25 MG/2 ML VIAL (PULMICORT) NEB SCH (08:13)
--- NOTE | 2021-10-11 08:20 | XRay Report ---
XR chest 1V portable, XR chest 1V portable CLINICAL HISTORY: LINE/TUBE PLACEMENT TECHNIQUE: Single frontal radiograph of the chest was obtained at 0349 hours and 0627 hours. Comparison: Comparison is made to chest radiograph 10/10/2021 FINDINGS: 0329 hours: Interval increased conspicuity of the left midlung opacity. Right midlung opacity is unchanged. Stabl e cardiomediastinal silhouette. No evidence of pneumothorax or pleural effusion. Emphysematous change s are seen. 0627 hours: A right jugular venous catheter is in the lower SVC. An endotracheal tube is 16 mm from the darrius. A n enteric tube tip and side-port appear below the diaphragm. The cardiomediastinal silhouette is norm al. Redemonstration of a large airspace opacity in the left midlung and a smaller one in the right mi dlung and lower lobe. No evidence of pleural effusion or pneumothorax. IMPRESSION: 1. Endotracheal tube terminates 16 mm from the darrius and can be withdrawn approximately 1.5 cm for improved positioning. Remaining lines and tubes are satisfactory. 2. Large airspace opacity in the left midlung has increased from exam of prior day. ACT 112: Negative or not required by law. Electronically signed by: Emre Medeiros M.D. 10/11/2021 8:19 AM
[2021-10-11] MEDS: INSULIN ASPART PER UNIT SC SCH ×3 (08:24→16:11)
[2021-10-11] MEDS: PHENYLEPHRINE HCL 20 MG in DEXTROSE 5% 500 ML IV SCH ×3 (08:31→23:59)
[2021-10-11] MEDS: VASOPRESSIN 20 UNITS in 0.9 % SODIUM CHLORIDE 100 ML IV SCH ×3 (08:32→23:59)
[2021-10-11] MEDS: D5W AND 1/2NSS 1,000 ML IV SCH ×2 (08:34→20:15)
[2021-10-11 08:51] LABS: iSTAT Allen Test Pass; iSTAT Art Bld Gas pCO2 Correct 61 mmHg (35-46); iSTAT Art Bld Gas pH Corrected 7.263 (7.35-7.45); iSTAT Arterial Blood Gas HCO3 27 meg/L (19-24); iSTAT Arterial Blood Gas pCO2 60 mmHg (35-46); iSTAT Arterial Blood Gas pH 7.27 (7.35-7.45); iSTAT Arterial Blood Gas pO2 62 mmHg (80-95); iSTAT Arterial Blood Gas pO2 C 64; iSTAT Carbon Dioxide 29 mmol/L (24-31); iSTAT FiO2 80 %; iSTAT Hematocrit 33 % (42-52); iSTAT Hemoglobin 11.2 g/dl (14.0-18.0); iSTAT Potassium 3.1 mmol/L (3.3-5.0); iSTAT Site L Radial; iSTAT Sodium 138 mmol/L (135-144)
--- NOTE | 2021-10-11 09:18 | Procedure Note ---
Procedure Note Date of Service October 11, 2021 Note PREOPERATIVE DIAGNOSIS: Left lung MRSA pneumonia POSTOPERATIVE DIAGNOSIS: Same as above PROCEDURE PERFORMED: Flexible fiberoptic bronchoscopy with washings of the left upper lobe COMPLICATIONS: None. INDICATION: Evaluate for mucous plugging Patient was already on a ventilator and had Versed and fentanyl infusing at the time of the procedure. He was hyperoxygenated with 100% oxygen prior to the initiation of the procedure. Consent was obtained from the patient's over the phone as the patient is currently intubated and sedated. She understands the risks and benefits of the procedure and wished to proceed. Timeout was performed prior to the procedure with the nurse at bedside. Disposable bronchoscope was inserted via the endotracheal tube. ET tube appears to be approximately 5 cm above the darrius. Darrius appeared sharp. Bilateral tracheobronchial tree inspection was performed. Thick mucus was noted emanating from the left upper lobe which was aspirated and sent for culture. Further airway inspection demonstrated bilateral bronchomalacia. No lesions were seen. The scope was ultimately withdrawn to the level of the darrius. No significant bleeding was seen. Scope was then completely withdrawn. Patient tolerated procedure well. Impression: Follow culture data and cytology results Coding CPT Codes Pulmonary/Thoracic - Pulmonary and Thoracic: 97440 Dx bronchoscopy/wash ([id number]) [facility] [place] Procedure Codes (Charges) Pulmonary/Thoracic Procedure 1: Pulmonary and Thoracic: 76599 Dx bronchoscopy/wash
[2021-10-11] MEDS ORDERED: VANCOMYCIN TROUGH ONE (09:30)
--- NOTE | 2021-10-11 09:40 | Critical Care Progress Note ---
Date of Service October 11, 2021 Assessment & Plan (1) MRSA pneumonia: (2) Pneumonia: Plan: Reason Critically Ill: 60-year-old male with a past medical history of severe bullous emphysema and COPD presenting to the hospital due to acute pneumonia and combined acute on chronic hypoxemic and hypercapnic respiratory failure Neuro - Idiopathic polyneuropathy, chronic pain syndrome, Depression, metabolic encephalopathy CAM ICU: Negative - No focal deficits -Hold gabapentin -Hold carbamazepine -Hold BuSpar -Continue Versed and fentanyl while intubated. Goal RASS of -1. Cardiac - HYPOTENSION, SEPSIS, ELEVATED TROPONIN - SEPSIS secondary from Pneumonia- bacterial presumed -Hypotension also likely sedation related. Continue phenylephrine and vasopressin. Respiratory - Multifocal Bacterial PNA greatest left upper lobe, COPD bullous emphysema, chronic oxygen therapy, chronic respiratory failure - Acute on chronic respiratory failure secondary to pneumonia- - Continue broad spectrum antibiotics - de-escalate with culture results - MRSA positive - Respiratory biofire negative - BiPAP- as needed for respiratory distress, tachypnea/hypoxia- goal SPO2 88% and RR <28 - Supplemental oxygen to maintain SPO2 88-92% -Hold steroid inhalers given MRSA pneumonia -Continue methylprednisone 40 mg daily. -Continue airborne isolation precautions given concern of possible TB. -Status post bronchoscopy 10/11/2021 with aspiration of a left upper lobe mucous plug. GI - No acute needs- HX cirrhosis, GERD -Consider tube feeds starting tomorrow if pressor requirement is decreased. - PPI while on steroids - No known Varices RENAL/LYTES - YOON type II, HYPOMAG -ICU electrolyte protocol. Monitor urine output closely. MSK: L4-L5 herniation with radiculopathy ENDO - TYPE II DM, HYPOTHYROID - ICU glycemic protocol- goal < 180mg/dl - Continue Synthroid -TSH within normal limits. -Patient hypoglycemic. D5 and half-normal saline started HEME - Leukopenia, anemia. RA - leukopenia likely secondary to sepsis - No acute blood loss noted- recent colonoscopy noted hemorrhoids, and rectal polyp - Continue FESO4 tabs MCV normal - - HOLD methotrexate ID -MRSA pneumonia - Elevated PCT - ESR elevated, but also with history of RA -Blood cultures negative to date -QuantiFERON gold pending. AFB sputum cultures pending. Staph MRSA seen on sputum cultures. Bronchoscopy performed 10/11 and culture sent. - Zosyn, Azithro, Vanco LINES/IV ACCESS - - PIV -Right IJ placed 10/11/2021 DVT PROPHYLAXIS - - HEPARIN 5000 units sub q q12 Patient DNR, but okay for intubation as noted above. CRITICAL CARE TIME - I have personally spent 38 minutes of critical care time in the direct management of this patient. This is a life/limb threatening event. This includes time spent evaluating patient, direct bedside care, chart review, placing orders, interpretation of diagnostic studies, discussion with consultants, patient, and family members, as well as other required patient management activities. This time is exclusive of all separately billable procedures, and teaching time and separate from and in addition to any other critical care service time. (3) Hypoxemic respiratory failure, chronic: (4) Acute hypotension: (5) Lumbar disc herniation with radiculopathy: (6) Rheumatoid arthritis: (7) Chronic pain syndrome: (8) Hypothyroidism: (9) T2DM (type 2 diabetes mellitus): Admission and Anticipated Discharge Date Admission Date: October 08, 2021 Subjective Patient was intubated this morning due to worsening hypercapnic and hypoxemic respiratory failure. Currently tachycardic. We transitioned Levophed to vasopressin and phenylephrine. I performed bronchoscopy this morning. His is also updated regarding his condition. He is unresponsive to commands and is currently on Versed and fentanyl infusion. Review of Systems Review of Systems: Unobtainable due to endotracheal tube Physical Exam Physical Exam: Constitutional: Chronically ill-appearing. Intubated and sedated. Eyes: Pupils are equal round and reactive to light. Conjunctivae are normal. Anicteric sclera. Ears nose, mouth and throat: ET tube in place. Neck: Trachea is midline. Visual inspection is normal. Respiratory: Rhonchorous sounding left lung sounds. Prolonged phase of exhalation. Cardiovascular: Regular rate and rhythm. No murmurs. No edema. Gastrointestinal: Normal bowel sounds, soft, nontender and nondistended. No hepatosplenomegaly noted. Musculoskeletal: No cyanosis. Patient is able to move all extremities. Skin: No rashes, warm dry and intact. Neurologic: Moves limbs spontaneously. No obvious focal deficits. Currently sedated. Psychiatric: Unable to assess. Results & Data Results & Data ([facility]) Vital Signs (Past 12 Hours) Vital Signs Temp Pulse Pulse Resp BP Pulse Ox 10/11/21 09:02 123 H 23 112/70 96 10/11/21 09:00 126 H 12 90/71 L 95 10/11/21 08:58 125 H 12 82/51 L 98 10/11/21 08:45 129 H 28 H 96/60 L 95 10/11/21 08:30 126 H 27 H 85/58 L 93 10/11/21 08:22 126 H 27 H 92/55 L 94 10/11/21 08:20 127 H 26 H 90/54 L 93 10/11/21 08:18 127 H 27 H 90/55 L 92 10/11/21 08:16 127 H 26 H 89/53 L 91 10/11/21 08:15 126 H 26 H 91 10/11/21 08:14 129 H 26 H 85/56 L 92 10/11/21 08:12 128 H 26 H 96/57 L 91 10/11/21 08:10 124 H 26 H 96/64 L 91 10/11/21 08:08 130 H 26 H 95/59 L 91 10/11/21 08:06 131 H 21 105/76 91 10/11/21 08:04 130 H 21 95/65 L 91 10/11/21 08:02 131 H 29 H 91/65 L 91 10/11/21 08:00 133 H 22 95/66 L 92 10/11/21 07:58 130 H 20 102/86 92 10/11/21 07:56 129 H 26 H 80/59 L 91 10/11/21 07:54 130 H 26 H 79/54 L 92 10/11/21 07:52 129 H 26 H 84/55 L 92 10/11/21 07:50 130 H 26 H 91/59 L 92 10/11/21 07:48 130 H 26 H 88/60 L 92 10/11/21 07:46 37.8 C H 130 H 26 H 93/62 L 92 10/11/21 07:45 130 H 26 H 92 10/11/21 07:00 128 H 26 H 83/55 L 95 10/11/21 06:58 128 H 26 H 87/55 L 95 10/11/21 06:56 128 H 26 H 85/57 L 94 10/11/21 06:54 128 H 26 H 88/56 L 94 10/11/21 06:52 128 H 26 H 89/56 L 95 10/11/21 06:50 128 H 26 H 87/56 L 95 10/11/21 06:48 127 H 26 H 87/57 L 95 10/11/21 06:46 128 H 26 H 87/56 L 95 10/11/21 06:45 128 H 26 H 94 10/11/21 06:44 128 H 26 H 90/57 L 94 10/11/21 06:42 127 H 26 H 87/57 L 95 10/11/21 06:40 128 H 26 H 91/55 L 96 10/11/21 06:38 127 H 26 H 86/55 L 96 10/11/21 06:36 127 H 26 H 88/59 L 96 10/11/21 06:34 127 H 26 H 84/54 L 96 10/11/21 06:32 128 H 26 H 79/51 L 95 10/11/21 06:31 128 H 28 H 80/53 L 93 10/11/21 06:30 128 H 26 H 80/51 L 94 10/11/21 06:28 127 H 26 H 80/50 L 97 10/11/21 06:26 126 H 26 H 81/49 L 97 10/11/21 06:24 126 H 26 H 82/52 L 95 10/11/21 06:22 126 H 26 H 88/54 L 94 10/11/21 06:20 126 H 19 97/56 L 90 10/11/21 06:18 130 H 19 88/58 L 91 10/11/21 06:16 127 H 13 82/52 L 10/11/21 06:15 129 H 18 92 10/11/21 05:50 130 H 19 93 10/11/21 04:10 148 H 35 H 90 10/11/21 04:00 141 H 44 H 109/60 87 L 10/11/21 03:30 132 H 26 H 91 10/11/21 03:20 148 H 34 H 10/11/21 03:00 135 H 29 H 91 10/11/21 02:30 135 H 31 H 96 10/11/21 02:26 135 H 30 H 94 10/11/21 02:19 133 H 30 H 94 10/11/21 02:00 135 H 29 H 89 L 10/11/21 01:30 123 H 41 H 98 10/11/21 01:00 119 H 36 H 93 10/11/21 00:35 107 H 24 95 10/11/21 00:30 119 H 23 98 10/11/21 00:00 113 H 29 H 99/56 L 96 10/10/21 23:00 110 H 31 H 92 10/10/21 22:35 113 H 26 H 94 10/10/21 22:00 108 H 37 H 93 Coding Level of Care Code Critical Care 1st 30-74 mins Diagnoses Pneumonia J18.9 Laterality: left Lung location: upper lobe of lung Pneumonia type: due to unspecified organism Hypoxemic respiratory failure, chronic J96.11 Acute hypotension I95.9 Lumbar disc herniation with radiculopathy M51.16 Rheumatoid arthritis M06.9 Chronic pain syndrome G89.4 Hypothyroidism E03.9 T2DM (type 2 diabetes mellitus) E11.9 MRSA pneumonia J15.212 Time Spent (min) 38 (1) Pneumonia Laterality: left Lung location: upper lobe of lung Pneumonia type: due to unspecified organism Qualified Code(s): J18.9 - Pneumonia, unspecified organism
[2021-10-11] MEDS: DOCUSATE SODIUM/SENNA 50/8.6MG TAB PO SCH (10:04)
[2021-10-11] MEDS: VANCOMYCIN HCL 1,000 MG in SODIUM CHLORIDE 0.9% 250 ML IV SCH (10:06)
--- NOTE | 2021-10-11 10:59 | XRay Report ---
XR chest 1V portable CLINICAL HISTORY: post bronch TECHNIQUE: Single frontal radiograph of the chest was obtained. Comparison: Comparison is made to chest radiograph 10/11/2021 0627 hours FINDINGS: Lines and tubes are stable. The cardiomediastinal silhouette is normal. Interval decrease in extent o f left airspace opacity. However, this opacity appears increased in density. Emphysematous changes ar e again seen. Linear density in the right midlung is unchanged. No evidence of pleural effusion or pn eumothorax. IMPRESSION: No evidence of pneumothorax status post bronchoscopy. Interval decrease in size but increase in densi ty of left mid lung opacity. ACT 112: Negative or not required by law. Electronically signed by: Emre Medeiros M.D. 10/11/2021 10:57 AM
--- NOTE | 2021-10-11 12:03 | Procedure Note ---
Procedure Note Date of Service October 11, 2021 Note ARTERIAL LINE PROCEDURE NOTE: Procedure: Arterial Line Placement Indication: Monitoring on Pressors Anesthesia: Continuous Versed and fentanyl infusing at the time of the procedure. Procedure was done emergently due to the need for further hemodynamic monitoring. Patient is currently on 3 vasopressor medications. A time-out was completed verifying correct patient, procedure, site, positioning, and implant(s) or special equipment if applicable. Patients right wrist was prepped and draped in the usual sterile fashion. Ultrasound guidance was used to aid needle placement. A 20g Arrow arterial line was introduced into the radial artery. Catheter was threaded, and the needle was removed with appropriate blood return. Good waveform was observed. The patient tolerated the procedure well. Blood Loss: Minimal Complications: None Coding CPT Codes Tubes, Drains, and Vasc Access - Tubes, Drains, and Vasc Access: [id number] Ultrasound Guidance For Vascular ([id number]) Tubes, Drains, and Vasc Access - Tubes, Drains, and Vasc Access: [id number] Insertion Catheter, Artery ([id number]) [facility] [place] Codes (Charges) Tubes, Drains, and Vasc Access Procedure 1: Tubes, Drains, and Vasc Access: [id number] Ultrasound Guidance For Vascular Procedure 2: Tubes, Drains, and Vasc Access: [id number] Insertion Catheter, Artery
--- NOTE | 2021-10-11 15:00 | Pharmacy Report ---
Pharmacy Vanc AUC Short Note - Date of Service October 11, 2021 - Assessment & Plan Assessment 60 year old M receiving 60 year old M receiving Day #5 of Vancomycin, Zosyn and Azithromycin for treatment of pneumonia. Plan Vancomycin * AUC/ISAIAS is the preferred PK/PD target for vancomycin * AUC guided dosing is effective and associated with decreased risk of nephrotoxicity compared to traditional trough targets * Trough level of 20.9 mcg/mL is slightly supratherapeutic * Will decrease dose to 750 mg IV every 12 hours. Per [facility], this dose is predicted to achieve AUC/ISAISA of ~500 mg/L.hr (trough of 16.4) and is associated with a 12% risk of nephrotoxicity * Trough level ordered for 10/13/21 @0930 Zosyn * 4.5 g IV x 1 followed by 4.5 g IV every 8 hours based on severity of illness - appropriate Azithromycin * 500 mg IV every 24 hours - appropriate
[2021-10-11] MEDS: POTASSIUM CHLORIDE 20 MEQ/15 ML UDC NG SCH ×2 (15:53→20:15)
[2021-10-11] MEDS: POT PHOSPHATE MONOBASIC W/ SOD TAB NG SCH ×3 (15:53→23:35)
[2021-10-11] MEDS: MAGNESIUM SULFATE / D5W 1 GM/100 ML BAG IV SCH ×4 (15:54→22:18)
[2021-10-11] MEDS: NOREPINEPHRINE/D5W 8 MG/508 ML BAG IV SCH (15:54)
[2021-10-11] MEDS: AZITHROMYCIN 500 MG in DEXTROSE 5% 250 ML IV SCH (15:57)
[2021-10-11] MEDS ORDERED: SUCCINYLCHOLINE CHLORIDE 20 MG/ML 10 ML VIAL IV ONE (17:19)
[2021-10-11] MEDS ORDERED: ETOMIDATE 2 MG/ML 20 ML VIAL IV ONE (17:19)
[2021-10-11] MEDS ORDERED: MIDAZOLAM HCL 5 MG/ML 1 ML VIAL IV ONE (17:19)
[2021-10-11] MEDS: ROSUVASTATIN CALCIUM 5 MG TAB PO SCH (20:17)
[2021-10-11] MEDS ORDERED: PHARMACY GLYCEMIC MGMT CONSULT PRN (21:37)
[2021-10-11] MEDS ORDERED: NovoLIN-R BOLUS FROM BAG IV ONE (21:45)
[2021-10-11] MEDS ORDERED: INSULIN REGULAR 250 UNITS in SODIUM CHLORIDE 0.9% 247.5 ML IV SCH (21:45)
[2021-10-11] MEDS: VANCOMYCIN HCL 750 MG in SODIUM CHLORIDE 0.9% 250 ML IV SCH (22:20)
[2021-10-12] MEDS: ALBUT/IPRATROP 3MG/0.5MG NEB 3 ML VIAL INH SCH ×4 (00:20→20:01)
[2021-10-12] MEDS: PIPERACILLIN/TAZOBACTAM 4.5 GM in DEXTROSE 5% 100 ML IV SCH ×3 (01:17→16:07)
[2021-10-12 04:08] LABS: iSTAT Arterial Blood Gas HCO3 33 meg/L (19-24); iSTAT Arterial Blood Gas pCO2 60 mmHg (35-46); iSTAT Arterial Blood Gas pH 7.35 (7.35-7.45); iSTAT Arterial Blood Gas pO2 58 mmHg (80-95); iSTAT Carbon Dioxide 35 mmol/L (24-31); iSTAT FiO2 50 %; iSTAT Site Art Line
--- NOTE | 2021-10-12 04:31 | Pharmacy Report ---
Pharmacy Glycemic Short Note 2 - Date of Service October 12, 2021 - Glycemic Short BSG Results (Last 24 hours): 10/11/21 10/11/21 10/11/21 05:11 08:11 08:46 Glucose 50 L* POC Glucose (other) 54 L* 155 H 10/11/21 10/11/21 10/11/21 11:07 16:07 20:27 Glucose POC Glucose (other) 179 H 236 H 306 H 10/11/21 10/11/21 10/12/21 21:17 23:12 00:06 Glucose POC Glucose (other) 349 H 374 H* 344 H 10/12/21 10/12/21 10/12/21 01:09 02:02 03:12 Glucose POC Glucose (other) 343 H 322 H 288 H OUTPATIENT ANTIDIABETIC REGIMEN: * N/a * HbA1c = 6.0% (10/09/21) ASSESSMENT: * Pt's condition worsened early yesterday AM and he was subsequently intubated. Pt underwent bronchoscopy yesterday. * Pt is currently receiving IV SoluMedrol 40mg IV daily. * He is receiving pressure support with norepinephrine, phenylephrine, and vasopressin. * Pt was placed on IVF containing dextrose. He continues to receive broad- spectrum antibiotics * Last evening, pt became significantly hyperglycemic (BSG 349mg/dL). As a result, IV insulin infusion was initiated. * Started conservatively, in the setting of recent hypoglycemia. PLAN FOR INPATIENT GLYCEMIC CONTROL: * IV insulin infusion * Goal range: 120-200mg/dL * Titration based on Insulin Infusion Adjustment Calculator * Pt is currently NPO, but if diet is resumed while on insulin infusion, Novolog will be used for carb coverage
[2021-10-12] MEDS: NOREPINEPHRINE/D5W 8 MG/508 ML BAG IV SCH ×3 (04:48→21:05)
[2021-10-12 05:14] LABS: Hematocrit (blood only) 29.4 % (42-52); Hemoglobin 9.5 g/dL (14.0-18.0); Mean Corpuscular Hemoglobin 31.8 pg (25-34); Mean Corpuscular Hgb Conc 32.3 g/dL (32-36); Mean Corpuscular Volume 98.3 fL (80-100); Mean Platelet Volume 10.2 fL (7.4-10.4); Platelet Count 495 K/uL (130-400); RDW Coefficient of Variation 17.1 % (11.5-14.5); RDW Standard Deviation 60.6 fL (36.4-46.3); Red Blood Count 2.99 M/uL (4.7-6.1)
[2021-10-12 05:39] LABS: Basophils # (auto) 0.01 K/uL (0-0.2); Basophils % (auto) 0.1 %; Dohle Bodies 1+; Eosinophils # (auto) 0.09 K/uL (0-0.5); Eosinophils % (auto) 1.1 %; Immature Granulocytes # (auto) 0.12 K/uL (0.00-0.02); Immature Granulocytes % (auto) 1.5 %; Lymphocytes # (auto) 0.48 K/uL (1.2-3.4); Lymphocytes % (auto) 5.9 %; Monocytes # (auto) 0.44 K/uL (0.11-0.59); Monocytes % (auto) 5.4 %; Neutrophils # (auto) 6.96 K/uL (1.4-6.5)
[2021-10-12 05:42] LABS: Potassium 2.9 mmol/L (3.5-5.1)
[2021-10-12 05:43] LABS: BUN Creatinine Ratio 13.8 (10-20); Calcium 7.5 mg/dl (8.5-10.1); Creatinine Clr Calc Pharmacy 80.5 ml/min; Est GFR (African American) 108.7 ml/min; Est GFR (Non-African American) 93.8 ml/min; Magnesium 1.9 mg/dl (1.7-2.4); Phosphorus 1.7 mg/dl (2.5-4.9)
[2021-10-12] MEDS: LEVOTHYROXINE SODIUM 25 MCG TABLET PO SCH (06:48)
[2021-10-12] MEDS ORDERED: POTASSIUM CHLORIDE 20 MEQ/15 ML UDC PO STA (07:01)
[2021-10-12] MEDS ORDERED: POTASSIUM PHOS 3 MMOL/1 ML INFUSION IV STA (07:01)
--- NOTE | 2021-10-12 07:02 | Hospitalist Progress Note ---
Date of Service October 12, 2021 Assessment & Plan (1) Pneumonia: Plan: 60-year-old male past medical history significant for severe bullous emphysema and COPD presenting to the hospital due to acute on chronic hypoxemic and hypercapnic respiratory failure. The cause of his acute decompensation thought to be a multifocal community-acquired PNA and subsequent COPD exacerbation. He was admitted directly to the ICU for vasoactive medication management. Acute on chronic hypoxemic and hypercapnic respiratory failure - secondary to multifocal PNA + acute exacerbation of COPD - MRSA+ from sputum culture -Overnight with worsening respiratory status requiring intubation -Underwent bronchoscopy 10/11/21 wiwth aspiration of L upper lobe mucous plug -Continue Versed and Fentanyl while intubated Hypotension -Multifactorial - sedation vs sepsis -Continue phenylephrine and vasopressin per ICU Sepsis - SIRS and SOFA met on admission. - Source: Chest CT showing multifocal PNA - sputum culture growing MRSA - blood cultures pending - urine culture negative - Resp Biofire panel neg - no cellulitis or diarrhea - Procal 9.4 on admission - ESR > 130 on admission - CRP 36 on admission - nasal MRSA swab + - Continue Vancomycin (MRSA coverage), Zosyn (gram - including pseudomonal coverage) - Completed Azithromycin (atypical coverage). COPD - in exacerbation due to multifocal PNA - continue Azithromycin 500mg IV for 3 days-- completed course - Hold steroid inhalers - continue IV methylprednisolone 40mg IV QD - DuoNebs scheduled every 6 hours and every 2 hours as needed for shortness of breath/wheezing. - given the extent of his PNA, anticipate mucous plugging as PNA is resolving; Mucinex, flutter valve and chest PT ordered - no home oxygen requirement YOON on CKD: resolved - Cr elevated to 1.4 on admission. Baseline Cr ~1.0 - likely pre-renal due to reduced perfusion in setting of acute sepsis - resolved with IVF resuscitation Leukopenia: - Likely secondary to sepsis; poor prognostic indicator - trend CBC Alcohol use disorder in remission, cirrhosis: - No indication for AWSS protocol at this time. - no known varices - complication of neuropathy; continue home dose gabapentin PAD - continue home dose statin + aspirin Depression/Anxiety - Hold home dose venlafaxine, remeron and buspar while intubated Rheumatoid arthritis: - Hold methotrexate in the setting of sepsis secondary to bacterial infection. Chronic pain: - Patient may have his at home oxycodone and gabapentin if able to verbalize needs and swallow effectively otherwise IV morphine if n.p.o. DM2: - A1c 6.0 - short acting insulin ordered with carb ratio - carb consistent diet when not NPO Hypothyroidism - continue home dose levothyroxine GERD: - PPI while on steroids. CODE STATUS: Conditional Code. Okay with intubation, does NOT want cardiac resuscitation FEN:NPO DVT prophylaxis: Heparin 5000 units SQ every 12 hours Dispo: ICU (2) Acute exacerbation of chronic obstructive pulmonary disease: (3) Respiratory failure: (4) History of alcohol use: (5) Rheumatoid arthritis: (6) Cirrhosis, alcoholic: (7) T2DM (type 2 diabetes mellitus): Admission and Anticipated Discharge Date Admission Date: October 08, 2021 Supervising Physician Co-Signing Physician Notes I personally examined the patient and verified all hinojosa points of history and exam, discussed case, and agree with decision making with Dr Darcie hurst HPI review of systems obtainable from patient. Nursing notes he is still on 3 pressors, tube feeds to be started. ICU input and management appreciated. Vitals noted, in general he is intubated and sedated on the ventilator. Lungs coarse throughout fairly quiet on the left on the ventilator. Even chest rise and fall. Skin without rashes, pallor, icterus Acute hypoxic respiratory failurerelated to very large pneumonia, with baseline COPD. Continue antibiotics and supportive care. Otherwise as above Subjective Continued intubation. No ROS acquirable. Review of Systems Review of Systems: Unobtainable due to endotracheal tube Physical Exam Constitutional: + ill appearing and + mechanically ventilated Respiratory: Auscultation: + rhonchi (loud rhonchi in the L lung liu) Cardiovascular: Rate/Rhythm: regular rate and regular rhythm Heart Sounds: no murmur Results & Data Results & Data ([facility]) Vital Signs (Past 12 Hours) Vital Signs Temp Pulse Pulse Resp BP Pulse Ox 10/12/21 05:30 37.2 C 97 H 26 H 89 L 10/12/21 05:00 37.2 C 96 H 26 H 89 L 10/12/21 04:30 37.2 C 92 H 26 H 89 L 10/12/21 04:00 37.1 C 92 H 27 H 119/46 L 88 L 10/12/21 03:42 94 H 28 H 89 L 10/12/21 03:30 37.1 C 93 H 29 H 90 10/12/21 03:00 37.0 C 95 H 26 H 87 L 10/12/21 02:30 37.0 C 95 H 26 H 88 L 10/12/21 02:00 36.9 C 96 H 26 H 87 L 10/12/21 01:30 36.9 C 96 H 26 H 87 L 10/12/21 01:00 36.9 C 94 H 26 H 88 L 10/12/21 00:30 36.9 C 86 26 H 89 L 10/12/21 00:25 84 26 H 89 L 10/12/21 00:00 36.9 C 84 26 H 140/52 L 92 10/11/21 23:30 36.9 C 86 26 H 91 10/11/21 23:04 82 26 H 90 10/11/21 23:00 36.8 C 83 26 H 90 10/11/21 22:30 36.8 C 82 26 H 90 10/11/21 22:00 36.7 C 80 26 H 90 10/11/21 21:30 36.6 C 82 26 H 90 10/11/21 21:00 36.6 C 85 26 H 138/55 L 90 10/11/21 20:30 36.7 C 86 28 H 89 L 10/11/21 20:00 36.7 C 86 28 H 91 10/11/21 19:46 84 26 H 91 10/11/21 19:45 88 27 H 90 10/11/21 19:30 36.8 C 84 23 90 Resident Activity Tracking Resident Involvement: Resident Care Provided Care Provided: Adult Hospital Medicine (1) Respiratory failure Chronicity: acute Respiratory failure complication: hypoxia Qualified Code(s): J96.01 - Acute respiratory failure with hypoxia (2) Pneumonia Laterality: left Lung location: upper lobe of lung Pneumonia type: due to unspecified organism Qualified Code(s): J18.9 - Pneumonia, unspecified organism
[2021-10-12] MEDS ORDERED: POTASSIUM PHOSPHATE 40 MMOL in SODIUM CHLORIDE 0.9% 1000ML 1,000 ML IV ONE (07:30)
[2021-10-12] MEDS: INSULIN ASPART PER UNIT SC SCH ×3 (07:51→20:27)
[2021-10-12] MEDS: VENLAFAXINE HCL XR 75 MG CAPXR PO SCH (07:54)
[2021-10-12] MEDS: guaiFENesin 600 MG TABCR PO SCH ×2 (07:54→19:27)
[2021-10-12] MEDS: VENLAFAXINE HCL XR 150 MG CAPXR PO SCH (07:54)
[2021-10-12] MEDS: DOCUSATE SODIUM 100 MG CAP PO SCH ×2 (07:54→21:04)
[2021-10-12] MEDS: MAGNESIUM SULFATE / D5W 1 GM/100 ML BAG IV SCH ×2 (08:03→10:30)
[2021-10-12] MEDS: ASPIRIN 81 MG ECTAB PO SCH (08:04)
[2021-10-12] MEDS: DOCUSATE SODIUM/SENNA 50/8.6MG TAB PO SCH (08:05)
[2021-10-12] MEDS: HEPARIN SOD 5,000 UNIT/0.5 ML VIAL SQ SCH ×2 (08:05→19:27)
[2021-10-12] MEDS: VASOPRESSIN 20 UNITS in 0.9 % SODIUM CHLORIDE 100 ML IV SCH ×2 (08:07→16:42)
[2021-10-12] MEDS: SENNA 8.6 MG TAB PO SCH ×2 (08:09→19:31)
[2021-10-12] MEDS: D5W AND 1/2NSS 1,000 ML IV SCH (08:09)
[2021-10-12] MEDS: UMECLIDINIUM BROMIDE 62.5MCG/BLISTER 7 PUFFS/INHALER INH SCH (08:11)
[2021-10-12] MEDS: methylPREDNISolone 40 MG in SYRINGE 0 ML IV SCH (08:12)
[2021-10-12] MEDS: PANTOprazole 40 MG in SYRINGE 0 ML IV SCH ×2 (08:12→19:28)
[2021-10-12] MEDS: VANCOMYCIN HCL 750 MG in SODIUM CHLORIDE 0.9% 250 ML IV SCH ×2 (08:58→21:04)
[2021-10-12] MEDS ORDERED: ICU PROTOCOL FOR HYPERGLYCEMIA SCH (09:00)
--- NOTE | 2021-10-12 09:02 | Critical Care Progress Note ---
Date of Service October 12, 2021 Assessment & Plan (1) MRSA pneumonia: (2) Pneumonia: Plan: Reason Critically Ill: 60-year-old male with a past medical history of severe bullous emphysema and COPD presenting to the hospital due to acute pneumonia and combined acute on chronic hypoxemic and hypercapnic respiratory failure Neuro - Idiopathic polyneuropathy, chronic pain syndrome, Depression, metabolic encephalopathy CAM ICU: Negative - No focal deficits -Hold gabapentin -Hold carbamazepine -Hold BuSpar -Continue Versed and fentanyl while intubated. Goal RASS of -1. Cardiac - HYPOTENSION, SEPSIS, ELEVATED TROPONIN - SEPSIS secondary from Pneumonia- bacterial presumed -Hypotension also likely sedation related. Continue phenylephrine and vasopressin. Respiratory - Multifocal Bacterial PNA greatest left upper lobe, COPD bullous emphysema, chronic oxygen therapy, chronic respiratory failure - Acute on chronic respiratory failure secondary to pneumonia- - Continue broad spectrum antibiotics - de-escalate with culture results -Sputum cultures positive for MRSA. - Respiratory biofire negative -Continue lung protective ventilation strategy - Supplemental oxygen to maintain SPO2 88-92% -Hold steroid inhalers given MRSA pneumonia -Continue methylprednisone 40 mg daily. -Continue airborne isolation precautions given concern of possible TB. -Status post bronchoscopy 10/11/2021 with aspiration of a left upper lobe mucous plug. GI - No acute needs- HX cirrhosis, GERD -Initiate trickle tube feeds today. - PPI while on steroids - No known Varices RENAL/LYTES - YOON type II, HYPOMAG -ICU electrolyte protocol. Monitor urine output closely. Mildly hyponatremic today likely related to D5 infusion. This will be discontinued. Recheck BMP around noon. MSK: L4-L5 herniation with radiculopathy ENDO - TYPE II DM, HYPOTHYROID - ICU glycemic protocol- goal < 180mg/dl - Continue Synthroid -TSH within normal limits. HEME - Leukopenia, anemia. RA - leukopenia likely secondary to sepsis - No acute blood loss noted- recent colonoscopy noted hemorrhoids, and rectal polyp - Continue FESO4 tabs MCV normal - - HOLD methotrexate ID -MRSA pneumonia - Elevated PCT - ESR elevated, but also with history of RA -Blood cultures negative to date -QuantiFERON gold pending. AFB sputum cultures pending. Staph MRSA seen on sputum cultures. Bronchoscopy performed 10/11 and culture sent. - Zosyn, Azithro, Vanco LINES/IV ACCESS - - PIV -Right IJ placed 10/11/2021 DVT PROPHYLAXIS - - HEPARIN 5000 units sub q q12 Patient DNR, but okay for intubation as noted above. Prognosis guarded. CRITICAL CARE TIME - I have personally spent 36 minutes of critical care time in the direct management of this patient. This is a life/limb threatening event. This includes time spent evaluating patient, direct bedside care, chart review, placing orders, interpretation of diagnostic studies, discussion with consultants, patient, and family members, as well as other required patient management activities. This time is exclusive of all separately billable procedures, and teaching time and separate from and in addition to any other critical care service time. (3) Hypoxemic respiratory failure, chronic: (4) Acute hypotension: (5) Lumbar disc herniation with radiculopathy: (6) Rheumatoid arthritis: (7) Chronic pain syndrome: (8) Hypothyroidism: (9) T2DM (type 2 diabetes mellitus): Admission and Anticipated Discharge Date Admission Date: October 08, 2021 Subjective Patient seen and examined. Remains sedated and on the ventilator. Requiring multiple vasopressors to maintain mean arterial pressures above 65. Review of Systems Review of Systems: Unobtainable due to endotracheal tube Physical Exam Physical Exam: Constitutional: Chronically ill-appearing. Intubated and sedated. Eyes: Pupils are equal round and reactive to light. Conjunctivae are normal. Anicteric sclera. Ears nose, mouth and throat: ET tube in place. Neck: Trachea is midline. Visual inspection is normal. Respiratory: Rhonchorous sounding left lung sounds. Prolonged phase of exhalation. Cardiovascular: Regular rate and rhythm. No murmurs. No edema. Gastrointestinal: Normal bowel sounds, soft, nontender and nondistended. No hepatosplenomegaly noted. Musculoskeletal: No cyanosis. Patient is able to move all extremities. Skin: No rashes, warm dry and intact. Neurologic: Moves limbs spontaneously. No obvious focal deficits. Currently sedated. Psychiatric: Unable to assess. Results & Data Results & Data ([facility]) Vital Signs (Past 12 Hours) Vital Signs Temp Pulse Pulse Resp BP Pulse Ox 10/12/21 07:25 90 90 27 H 89 L 10/12/21 05:30 37.2 C 97 H 26 H 89 L 10/12/21 05:00 37.2 C 96 H 26 H 89 L 10/12/21 04:30 37.2 C 92 H 26 H 89 L 10/12/21 04:00 37.1 C 92 H 27 H 119/46 L 88 L 10/12/21 03:42 94 H 28 H 89 L 10/12/21 03:30 37.1 C 93 H 29 H 90 10/12/21 03:00 37.0 C 95 H 26 H 87 L 10/12/21 02:30 37.0 C 95 H 26 H 88 L 10/12/21 02:00 36.9 C 96 H 26 H 87 L 10/12/21 01:30 36.9 C 96 H 26 H 87 L 10/12/21 01:00 36.9 C 94 H 26 H 88 L 10/12/21 00:30 36.9 C 86 26 H 89 L 10/12/21 00:25 84 26 H 89 L 10/12/21 00:00 36.9 C 84 26 H 140/52 L 92 10/11/21 23:30 36.9 C 86 26 H 91 10/11/21 23:04 82 26 H 90 10/11/21 23:00 36.8 C 83 26 H 90 10/11/21 22:30 36.8 C 82 26 H 90 10/11/21 22:00 36.7 C 80 26 H 90 10/11/21 21:30 36.6 C 82 26 H 90 10/11/21 21:00 36.6 C 85 26 H 138/55 L 90 Coding Level of Care Code Critical Care 1st 30-74 mins Diagnoses MRSA pneumonia J15.212 Pneumonia J18.9 Laterality: left Lung location: upper lobe of lung Pneumonia type: due to unspecified organism Hypoxemic respiratory failure, chronic J96.11 Acute hypotension I95.9 Lumbar disc herniation with radiculopathy M51.16 Rheumatoid arthritis M06.9 Chronic pain syndrome G89.4 Hypothyroidism E03.9 T2DM (type 2 diabetes mellitus) E11.9 Time Spent (min) 36 (1) Pneumonia Laterality: left Lung location: upper lobe of lung Pneumonia type: due to unspecified organism Qualified Code(s): J18.9 - Pneumonia, unspecified organism
--- NOTE | 2021-10-12 09:04 | XRay Report ---
XR chest 1V portable HISTORY: Resp failure COMPARISON: Chest 10/11/2021. FINDINGS: Lines and tubes remain unchanged in position. Rotated study. The heart is stable in size. S evere bullous emphysema again noted. Bilateral airspace opacities persist. IMPRESSION: 1. No change in the bilateral airspace opacities and severe bullous emphysema. 2. Satisfactory support line placement. ACT 112: Negative or not required by law. Electronically signed by: Tian Torres M.D. 10/12/2021 9:03 AM
[2021-10-12] MEDS ORDERED: INSULIN ASPART PER UNIT SC SCH (14:00)
--- NOTE | 2021-10-12 14:56 | Pharmacy Report ---
Pharmacy Glycemic Short Note 2 - Date of Service October 12, 2021 - Glycemic Short BSG Results (Last 24 hours): 10/11/21 10/11/21 10/11/21 16:07 20:27 21:17 Glucose POC Glucose (other) 236 H 306 H 349 H 10/11/21 10/12/21 10/12/21 23:12 00:06 01:09 Glucose POC Glucose (other) 374 H* 344 H 343 H 10/12/21 10/12/21 10/12/21 02:02 03:12 04:57 Glucose 216 H POC Glucose (other) 322 H 288 H 10/12/21 10/12/21 10/12/21 05:05 07:42 09:10 Glucose POC Glucose (other) 215 H 125 H 89 10/12/21 10/12/21 09:54 11:07 Glucose POC Glucose (other) 90 114 H OUTPATIENT ANTIDIABETIC REGIMEN: * N/a * HbA1c = 6.0% (10/09/21) ASSESSMENT: 10/12 * Patient continued on insulin drip this AM, BSGs now falling lower 100s, on recheck 114 mg/dL - instructed RN to hold insulin drip for now * Dextrose fluids discontinued this AM, possibly contributing to higher BSGs yesterday evening/overnight * Orders in for TF @10ml/hr - no titration parameters. Plan to use novolog q4 hr checks for coverage * Will add conservative scale for Lantus BID 0-5 units based upon BSG value 10/11 * Pt's condition worsened early yesterday AM and he was subsequently intubated. Pt underwent bronchoscopy yesterday. * Pt is currently receiving IV SoluMedrol 40mg IV daily. * He is receiving pressure support with norepinephrine, phenylephrine, and vasopressin. * Pt was placed on IVF containing dextrose. He continues to receive broad- spectrum antibiotics * Last evening, pt became significantly hyperglycemic (BSG 349mg/dL). As a result, IV insulin infusion was initiated. * Started conservatively, in the setting of recent hypoglycemia. PLAN FOR INPATIENT GLYCEMIC CONTROL: * Basal - Lantus 0-5 units BID for BSG >160 * Novolog Q4 hr with TF - 110-140 / CF 35 / CR 12
[2021-10-12] MEDS: TUBE FEEDING WATER FLUSH OG SCH ×3 (14:59→21:04)
--- NOTE | 2021-10-12 15:30 | Billing Data ---
Date of Service October 12, 2021 Coding Level of Care Code 60173 Subseq Hosp Care Lvl 1
[2021-10-12 15:31] LABS: Quantiferon NIL 0.04 IU/mL; Quantiferon TB Gold Plus INDETERMINATE (NEGATIVE); Quantiferon TB1-NIL 0.03 IU/mL
[2021-10-12] MEDS: PEPTAMEN 1.5 CAL 1,000 ML BAG OG SCH (16:06)
[2021-10-12] MEDS: PHENYLEPHRINE HCL 20 MG in DEXTROSE 5% 500 ML IV SCH ×4 (19:24→21:59)
[2021-10-12] MEDS: ROSUVASTATIN CALCIUM 5 MG TAB PO SCH (19:29)
[2021-10-12] MEDS ORDERED: INSULIN GLARGINE SOLOSTAR 100 UNITS/ML 3 ML PEN SC SCH (20:00)
[2021-10-13] MEDS: INSULIN ASPART PER UNIT SC SCH ×7 (00:13→19:57)
[2021-10-13] MEDS: ALBUT/IPRATROP 3MG/0.5MG NEB 3 ML VIAL INH SCH ×4 (00:30→21:22)
[2021-10-13] MEDS: VASOPRESSIN 20 UNITS in 0.9 % SODIUM CHLORIDE 100 ML IV SCH ×3 (02:29→19:24)
[2021-10-13] MEDS: MIDAZOLAM HCL 125 MG/250 ML BAG IV SCH (02:29)
[2021-10-13] MEDS: TUBE FEEDING WATER FLUSH OG SCH ×6 (02:30→22:22)
[2021-10-13] MEDS: PIPERACILLIN/TAZOBACTAM 4.5 GM in DEXTROSE 5% 100 ML IV SCH ×3 (02:30→17:48)
[2021-10-13] MEDS ORDERED: ACETAMINOPHEN 1,000 MG/100 ML VIAL IV PRN (04:36)
[2021-10-13] MEDS: PHENYLEPHRINE HCL 20 MG in DEXTROSE 5% 500 ML IV SCH ×2 (04:39→08:37)
[2021-10-13 04:43] LABS: iSTAT Allen Test Pass; iSTAT Art Bld Gas pCO2 Correct 70 mmHg (35-46); iSTAT Art Bld Gas pH Corrected 7.275 (7.35-7.45); iSTAT Arterial Blood Gas HCO3 32 meg/L (19-24); iSTAT Arterial Blood Gas pCO2 67 mmHg (35-46); iSTAT Arterial Blood Gas pH 7.29 (7.35-7.45); iSTAT Arterial Blood Gas pO2 49 mmHg (80-95); iSTAT Arterial Blood Gas pO2 C 53; iSTAT Carbon Dioxide 34 mmol/L (24-31); iSTAT FiO2 75 %; iSTAT Hematocrit 30 % (42-52); iSTAT Hemoglobin 10.2 g/dl (14.0-18.0); iSTAT Potassium 3.5 mmol/L (3.3-5.0); iSTAT Site Art Line; iSTAT Sodium 123 mmol/L (135-144)
[2021-10-13 05:05] LABS: Hemoglobin 9.6 g/dL (14.0-18.0); Mean Corpuscular Hemoglobin 32.1 pg (25-34); Mean Corpuscular Hgb Conc 33.1 g/dL (32-36); Mean Platelet Volume 10.3 fL (7.4-10.4); Platelet Count 408 K/uL (130-400); RDW Coefficient of Variation 17.1 % (11.5-14.5); Red Blood Count 2.99 M/uL (4.7-6.1); White Blood Count 9.26 K/uL (4.8-10.8)
[2021-10-13] MEDS: NOREPINEPHRINE/D5W 8 MG/508 ML BAG IV SCH ×3 (05:13→14:24)
[2021-10-13 05:32] LABS: Basophils # (auto) 0.01 K/uL (0-0.2); Basophils % (auto) 0.1 %; Echinocytes 1+; Eosinophils # (auto) 0.02 K/uL (0-0.5); Eosinophils % (auto) 0.2 %; Immature Granulocytes # (auto) 0.04 K/uL (0.00-0.02); Immature Granulocytes % (auto) 0.4 %; Lymphocytes # (auto) 0.32 K/uL (1.2-3.4); Lymphocytes % (auto) 3.5 %; Monocytes # (auto) 0.51 K/uL (0.11-0.59); Monocytes % (auto) 5.5 %; Neutrophils # (auto) 8.36 K/uL (1.4-6.5); Neutrophils % (auto) 90.3 %; Schistocytes 1+
--- NOTE | 2021-10-13 05:36 | Hospitalist Progress Note ---
Date of Service October 13, 2021 Assessment & Plan (1) Pneumonia: Plan: 60-year-old male past medical history significant for severe bullous emphysema, COPD, and RA on MTX presenting to the hospital due to acute on chronic hypoxemic and hypercapnic respiratory failure. The cause of his acute decompensation is thought to be a multifocal community-acquired PNA and subsequent COPD exacerbation. He was admitted directly to the ICU for vasoactive medication management. Ventilation-Dependent Respiratory Failure (Acute on chronic hypoxemic and hypercapnic respiratory failure) - secondary to multifocal PNA + acute exacerbation of COPD - MRSA+ from sputum culture - Increasing FiO2 and PEEP requirements through evening of 10/12- - s/p bronchoscopy 10/11/21 with aspiration of L upper lobe mucous plug - Continue Versed and Fentanyl while intubated - SpO2 goal 88-92% Hypotension - Multifactorial - sedation + sepsis - Currently requiring NE, vasopressin, and phenylephrine - Random cortisol AM (10/13) - 25 - Continue methylprednisolone Sepsis - SIRS and SOFA met on admission. - Source: Chest CT showing multifocal PNA - sputum, bronch cultures growing MRSA - fungal, acid fast cultures pending - blood cultures - NGTD, repeat cultures pending - Resp Biofire panel neg - no cellulitis or diarrhea - Quantiferon Gold - Indeterminate ; TB antigens negative - Procal 9.4, ESR >130, CRP 36 on admission - Continue Zosyn - Transition from Vancomycin --> Linezolid (beginning 10/13) - Completed Azithromycin (atypical coverage) - ID consult pending COPD - in exacerbation due to multifocal PNA - continue Azithromycin 500mg IV for 3 days-- completed course - Hold steroid inhalers - continue IV methylprednisolone 40mg IV QD per ICU - Continue scheduled duonebs - given the extent of his PNA, anticipate mucous plugging as PNA is resolving; Mucinex, flutter valve and chest PT ordered - no home oxygen requirement YOON on CKD: resolved - Cr elevated to 1.4 on admission. Baseline Cr ~1.0 - likely pre-renal due to reduced perfusion in setting of acute sepsis - resolved with IVF resuscitation Leukopenia: - Likely secondary to sepsis; poor prognostic indicator - trend CBC Alcohol use disorder in remission, cirrhosis: - No indication for AWSS protocol at this time. - no known varices - complication of neuropathy; continue home dose gabapentin PAD - continue home dose statin + aspirin Depression/Anxiety - Hold home dose venlafaxine, remeron and buspar while intubated Rheumatoid arthritis: - Hold methotrexate in the setting of sepsis secondary to bacterial infection. Chronic pain, Idiopathic Polyneuropathy - Patient may have his at home oxycodone and gabapentin if able to verbalize needs and swallow effectively otherwise IV morphine if n.p.o. DM2: - A1c 6.0 - short acting insulin ordered with carb ratio - carb consistent diet when not NPO - ICU hyperglycemia protocol Hypothyroidism - continue home dose levothyroxine GERD: - PPI while on steroids. CODE STATUS: Previously CC (DNR) -- transitioned to DNR/DNI on 10/13 FEN:NPO DVT prophylaxis: Heparin 5000 units SQ every 12 hours Dispo: ICU (2) Acute exacerbation of chronic obstructive pulmonary disease: (3) Respiratory failure: (4) History of alcohol use: (5) Rheumatoid arthritis: (6) Cirrhosis, alcoholic: (7) T2DM (type 2 diabetes mellitus): Admission and Anticipated Discharge Date Admission Date: October 08, 2021 Supervising Physician Co-Signing Physician Notes I also saw the patient and discussed the case with the resident physician. I agree with the impression and plan as noted above. Increasingly hypotensive overnight. No meaningful HPI review of systems obtainable from patient. ICU input and management appreciated. Repeat bronchoscopy scheduled for this AM. Linezolid added today. 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 No meaningful HPI giv en sedation and intubation. Review of Systems Review of Systems: Unobtainable d/t ETT and sedation in effect Physical Exam Physical Exam: General: 60-year old male who is mechanically ventilated. HEENT: NCAT. ETT in place. - Neck - supple, no appreciable JVD Cardiac: Tachycardic with regular rhythm; S1 and S2 present with no murmurs, rubs, or gallops. Pulmonary: Mechanically ventilated. Lungs were clear to auscultation bilaterally with no crackles or wheezes. Abdominal: Abdomen was soft, nondistended Extremities: Upper and lower extremities are warm and well perfused. Capillary refill < 2 seconds. Results & Data Results & Data ([facility]) Vital Signs (Past 12 Hours) Vital Signs Temp Pulse Pulse Resp BP Pulse Ox 10/13/21 04:38 26 H 10/13/21 02:39 103 H 28 H 89 L 10/13/21 00:31 26 H 10/13/21 00:30 99 H 27 H 92 10/13/21 00:15 36.5 C 93 H 23 90 10/13/21 00:00 36.4 C L 88 28 H 130/52 L 92 10/12/21 23:45 36.3 C L 90 26 H 95 10/12/21 23:30 36.3 C L 92 H 26 H 95 10/12/21 23:15 36.2 C L 93 H 26 H 95 10/12/21 23:00 36.2 C L 96 H 27 H 96 10/12/21 22:45 36.2 C L 92 H 26 H 95 10/12/21 22:30 36.1 C L 95 H 26 H 96 10/12/21 22:15 36.1 C L 95 H 26 H 94 10/12/21 22:00 36.1 C L 98 H 26 H 94 10/12/21 21:58 97 H 27 H 94 10/12/21 21:45 36.1 C L 100 H 26 H 94 10/12/21 21:30 36.1 C L 99 H 26 H 95 10/12/21 21:15 36.1 C L 95 H 26 H 88 L 10/12/21 21:00 36.1 C L 97 H 26 H 85 L 10/12/21 20:45 36.2 C L 92 H 26 H 85 L 10/12/21 20:30 36.2 C L 88 26 H 88 L 10/12/21 20:18 62 28 H 91 10/12/21 20:15 36.3 C L 69 26 H 98 10/12/21 20:00 36.3 C L 59 L 24 127/51 L 96 10/12/21 19:45 36.3 C L 65 26 H 96 10/12/21 19:30 36.4 C L 68 26 H 95 10/12/21 19:15 36.5 C 77 26 H 95 10/12/21 19:00 36.5 C 71 26 H 96 10/12/21 18:45 36.6 C 73 26 H 95 10/12/21 18:30 36.6 C 72 27 H 96 10/12/21 18:15 36.7 C 69 26 H 95 10/12/21 18:00 36.7 C 61 26 H 96 10/12/21 17:45 36.7 C 69 27 H 95 10/12/21 17:30 36.8 C 64 26 H 95 Resident Activity Tracking Resident Involvement: Resident Care Provided Care Provided: Adult Hospital Medicine (1) Respiratory failure Chronicity: acute Respiratory failure complication: hypoxia Qualified Code(s): J96.01 - Acute respiratory failure with hypoxia (2) Pneumonia Laterality: left Lung location: upper lobe of lung Pneumonia type: due to unspecified organism Qualified Code(s): J18.9 - Pneumonia, unspecified organism
[2021-10-13 05:42] LABS: Potassium 3.5 mmol/L (3.5-5.1)
[2021-10-13 05:43] LABS: BUN Creatinine Ratio 14.8 (10-20); Calcium 7.3 mg/dl (8.5-10.1); Creatinine Clr Calc Pharmacy 88.2 ml/min; Est GFR (Non-African American) 96.6 ml/min; Magnesium 1.6 mg/dl (1.7-2.4); Phosphorus 3.3 mg/dl (2.5-4.9)
[2021-10-13 06:40] LABS: Appearance Urine Cloudy (Clear); Bacteria Urine Automated Negative (Negative); Blood Urine 1+ (Negative); Color Urine Dark Yellow; Epithelial Cell Urine Auto >30 /lpf (0-5); Glucose Urine UA Negative (Negative); Ketones Urine Negative (Negative); Leukocyte Esterase Urine Negative (Negative); Nitrite Urine Negative (Negative); Protein Urine 2+ (Negative); Specific Gravity Urine 1.021 (1.000-1.030); Urobilinogen Urine Negative (Negative); pH Urine 5.5 (4.5-7.5)
[2021-10-13 06:45] LABS: Bilirubin Urine 1+ (Negative)
[2021-10-13] MEDS: MAGNESIUM SULFATE / D5W 1 GM/100 ML BAG IV SCH ×4 (06:46→14:25)
[2021-10-13 06:53] LABS: Cast Urine Automated 0 /lpf (0-5)
[2021-10-13] MEDS ORDERED: PHENYLEPHRINE HCL 40 MG in DEXTROSE 5% 500 ML IV SCH (08:00)
[2021-10-13] MEDS: SENNA 8.6 MG TAB PO SCH ×2 (08:05→20:03)
[2021-10-13] MEDS: LEVOTHYROXINE SODIUM 25 MCG TABLET PO SCH (08:26)
[2021-10-13] MEDS: ASPIRIN 81 MG ECTAB PO SCH (09:24)
[2021-10-13] MEDS: PANTOprazole 40 MG in SYRINGE 0 ML IV SCH (09:24)
[2021-10-13] MEDS: MULTI VIT W/MINERALS LIQUID 15 ML UDP NG SCH (09:24)
[2021-10-13] MEDS: DOCUSATE SODIUM/SENNA 50/8.6MG TAB PO SCH (09:24)
[2021-10-13] MEDS: HEPARIN SOD 5,000 UNIT/0.5 ML VIAL SQ SCH ×2 (09:25→20:02)
[2021-10-13] MEDS: methylPREDNISolone 40 MG in SYRINGE 0 ML IV SCH (09:25)
[2021-10-13] MEDS: VANCOMYCIN HCL 750 MG in SODIUM CHLORIDE 0.9% 250 ML IV SCH ×2 (09:26→11:22)
[2021-10-13] MEDS ORDERED: VANCOMYCIN TROUGH ONE (09:30)
--- NOTE | 2021-10-13 09:34 | Critical Care Progress Note ---
Date of Service October 13, 2021 Assessment & Plan (1) MRSA pneumonia: (2) Pneumonia: Plan: Reason Critically Ill: 60-year-old male with a past medical history of severe bullous emphysema and COPD presenting to the hospital due to acute pneumonia and combined acute on chronic hypoxemic and hypercapnic respiratory failure Neuro - Idiopathic polyneuropathy, chronic pain syndrome, Depression, metabolic encephalopathy CAM ICU: Negative - No focal deficits -Hold gabapentin -Hold carbamazepine -Hold BuSpar -Continue Versed and fentanyl while intubated. Goal RASS of -1. Cardiac - HYPOTENSION, SEPSIS, ELEVATED TROPONIN - SEPSIS secondary from Pneumonia- bacterial presumed -Hypotension also likely sedation related. Continue phenylephrine and vasopressin. Respiratory - Multifocal Bacterial PNA greatest left upper lobe, COPD bullous emphysema, chronic oxygen therapy, chronic respiratory failure - Acute on chronic respiratory failure secondary to pneumonia- - Continue broad spectrum antibiotics - de-escalate with culture results -Sputum cultures positive for MRSA. - Respiratory biofire negative -Continue lung protective ventilation strategy - Supplemental oxygen to maintain SPO2 88-92% -Hold steroid inhalers given MRSA pneumonia -Continue methylprednisone 40 mg daily. -Continue airborne isolation precautions given concern of possible TB. -Status post bronchoscopy 10/11/2021 with aspiration of a left upper lobe mucous plug. - S/P Bronchoscopy today - Ventilation day 2 GI - No acute needs- HX cirrhosis, GERD - trickle tube feeds today. - No known Varices RENAL/LYTES - YOON type II -ICU electrolyte protocol -Hypomagnesemia: 4 gram mag IV MSK: L4-L5 herniation with radiculopathy ENDO - TYPE II DM, HYPOTHYROID - ICU glycemic protocol- goal < 180mg/dl - Continue Synthroid -TSH within normal limits. HEME - Leukopenia, anemia. RA - leukopenia likely secondary to sepsis - No acute blood loss noted- recent colonoscopy noted hemorrhoids, and rectal polyp - Continue FESO4 tabs MCV normal - - HOLD methotrexate ID -MRSA pneumonia - Elevated PCT - ESR elevated, but also with history of RA -Blood cultures negative to date -QuantiFERON gold pending. AFB sputum cultures pending. Staph MRSA seen on sputum cultures. Bronchoscopy performed 10/11 and culture sent. - Zosyn Day 10/07, Azithro: finishing today, Vanco Day 10/07 -Transition from vancomycin to linezolid, patient has been off multiple drugs which can cause serotonergic type symptoms we will continue close observation however with elevated ISAIAS there should be significant benefit from transitioning to Linezolid - ID consult pending LINES/IV ACCESS - - PIV -Right IJ placed 10/11/2021 - Right arterial line 10/11/21 DVT PROPHYLAXIS - - HEPARIN 5000 units sub q q12 Patient DNR/DNI in event of cardiac arrest Prognosis guarded. CRITICAL CARE TIME - I have personally spent 45 minutes of critical care time in the direct management of this patient. This is a life/limb threatening event. This includes time spent evaluating patient, direct bedside care, chart review, placing orders, interpretation of diagnostic studies, discussion with consultants, patient, and family members, as well as other required patient management activities. This time is exclusive of all separately billable procedures, and teaching time and separate from and in addition to any other critical care service time. (3) Hypoxemic respiratory failure, chronic: (4) Acute hypotension: (5) Lumbar disc herniation with radiculopathy: (6) Rheumatoid arthritis: (7) Chronic pain syndrome: (8) Hypothyroidism: (9) T2DM (type 2 diabetes mellitus): Admission and Anticipated Discharge Date Admission Date: October 08, 2021 Subjective No overnight events Review of Systems Review of Systems: Unobtainable due to endotracheal tube Physical Exam Physical Exam: General: Sedated. nontoxic. Skin: Warm, dry, Head: Atraumatic Ears, nose, mouth and throat: airway obscured by endotracheal tube Cardiovascular: Normal peripheral perfusion Respiratory: Ventilator settings reviewed Gastrointestinal: Non distended Musculoskeletal: No deformity Results & Data Results & Data ([facility]) Vital Signs (Past 12 Hours) Vital Signs Temp Pulse Pulse Resp BP Pulse Ox 10/13/21 07:56 118 H 30 H 95 10/13/21 06:15 38.4 C H 106 H 27 H 97 10/13/21 06:00 38.4 C H 105 H 32 H 93 10/13/21 05:45 38.4 C H 109 H 29 H 92 10/13/21 05:30 38.4 C H 109 H 29 H 93 10/13/21 05:15 38.4 C H 115 H 28 H 89 L 10/13/21 05:00 38.3 C H 115 H 29 H 89 L 10/13/21 04:45 38.2 C H 115 H 30 H 90 10/13/21 04:38 26 H 10/13/21 04:30 38.0 C H 113 H 26 H 92 10/13/21 04:15 37.9 C H 119 H 27 H 85 L 10/13/21 04:00 37.7 C H 117 H 29 H 99/48 L 87 L 10/13/21 03:45 37.6 C H 113 H 26 H 89 L 10/13/21 03:30 37.5 C 112 H 25 H 91 10/13/21 03:15 37.4 C 110 H 23 92 10/13/21 03:00 37.3 C 108 H 29 H 92 10/13/21 02:45 37.2 C 110 H 25 H 88 L 10/13/21 02:39 103 H 28 H 89 L 10/13/21 02:30 37.2 C 109 H 27 H 86 L 10/13/21 02:15 37.1 C 110 H 29 H 93 10/13/21 02:08 37.1 C 112 H 28 H 81/55 L 97 10/13/21 02:00 37.1 C 112 H 28 H 100 10/13/21 01:45 37.0 C 115 H 27 H 99 10/13/21 01:30 36.9 C 108 H 27 H 93 10/13/21 01:15 36.8 C 101 H 27 H 99 10/13/21 01:00 36.7 C 104 H 27 H 98 10/13/21 00:45 36.7 C 103 H 15 95 10/13/21 00:31 26 H 10/13/21 00:30 36.6 C 100 H 99 H 26 H 93 10/13/21 00:15 36.5 C 93 H 23 90 10/13/21 00:00 36.4 C L 88 28 H 130/52 L 92 10/12/21 23:45 36.3 C L 90 26 H 95 10/12/21 23:30 36.3 C L 92 H 26 H 95 10/12/21 23:15 36.2 C L 93 H 26 H 95 10/12/21 23:00 36.2 C L 96 H 27 H 96 10/12/21 22:45 36.2 C L 92 H 26 H 95 10/12/21 22:30 36.1 C L 95 H 26 H 96 10/12/21 22:15 36.1 C L 95 H 26 H 94 10/12/21 22:00 36.1 C L 98 H 26 H 94 10/12/21 21:58 97 H 27 H 94 10/12/21 21:45 36.1 C L 100 H 26 H 94 Critical Care Results & Data Vital Signs (Past 12 Hours) Vital Signs Temp Pulse Resp BP Pulse Ox 10/13/21 13:00 38.2 C H 108 H 37 H 88 L 10/13/21 12:10 117 H 28 H 94 10/13/21 12:00 38.3 C H 121 H 31 H 119/52 L 98 10/13/21 11:00 38.4 C H 117 H 28 H 100 10/13/21 10:00 38.5 C H 100 H 28 H 99 10/13/21 09:00 38.4 C H 103 H 28 H 95 10/13/21 08:20 38.4 C H 120 H 31 H 87 L 10/13/21 08:18 38.4 C H 120 H 30 H 88/57 L 87 L 10/13/21 08:15 38.4 C H 121 H 32 H 86 L 10/13/21 08:10 38.4 C H 123 H 28 H 89 L 10/13/21 08:05 38.4 C H 121 H 30 H 90 10/13/21 08:00 38.4 C H 120 H 25 H 94 10/13/21 07:56 118 H 30 H 95 10/13/21 07:40 38.3 C H 118 H 28 H 98 10/13/21 07:35 38.3 C H 117 H 37 H 98 10/13/21 07:30 38.3 C H 118 H 29 H 98 10/13/21 07:25 38.3 C H 118 H 30 H 98 10/13/21 07:20 38.3 C H 117 H 29 H 99 10/13/21 07:15 38.3 C H 120 H 31 H 98 10/13/21 07:10 38.4 C H 117 H 30 H 97 10/13/21 07:05 38.4 C H 115 H 29 H 99 10/13/21 07:00 38.4 C H 113 H 29 H 99 10/13/21 06:15 38.4 C H 106 H 27 H 97 10/13/21 06:00 38.4 C H 105 H 32 H 93 10/13/21 05:45 38.4 C H 109 H 29 H 92 10/13/21 05:30 38.4 C H 109 H 29 H 93 10/13/21 05:15 38.4 C H 115 H 28 H 89 L 10/13/21 05:00 38.3 C H 115 H 29 H 89 L 10/13/21 04:45 38.2 C H 115 H 30 H 90 10/13/21 04:38 26 H 10/13/21 04:30 38.0 C H 113 H 26 H 92 10/13/21 04:15 37.9 C H 119 H 27 H 85 L 10/13/21 04:00 37.7 C H 117 H 29 H 99/48 L 87 L 10/13/21 03:45 37.6 C H 113 H 26 H 89 L 10/13/21 03:30 37.5 C 112 H 25 H 91 10/13/21 03:15 37.4 C 110 H 23 92 10/13/21 03:00 37.3 C 108 H 29 H 92 10/13/21 02:45 37.2 C 110 H 25 H 88 L 10/13/21 02:39 103 H 28 H 89 L 10/13/21 02:30 37.2 C 109 H 27 H 86 L 10/13/21 02:15 37.1 C 110 H 29 H 93 10/13/21 02:08 37.1 C 112 H 28 H 81/55 L 97 10/13/21 02:00 37.1 C 112 H 28 H 100 10/13/21 01:45 37.0 C 115 H 27 H 99 10/13/21 01:30 36.9 C 108 H 27 H 93 10/13/21 01:15 36.8 C 101 H 27 H 99 Lab & Micro Results (Past 24 Hours) RBC 2.99 M/uL (4.7-6.1) L 10/13/21 WBC 9.26 K/uL (4.8-10.8) 10/13/21 Hgb 9.6 g/dL (14.0-18.0) L 10/13/21 Hct 29.0 % (42-52) L 10/13/21 MCV 97.0 fL (80-100) 10/13/21 MCH 32.1 pg (25-34) 10/13/21 MCHC 33.1 g/dL (32-36) 10/13/21 RDW Standard Deviation 60.0 fL (36.4-46.3) H 10/13/21 RDW Coefficient of Variation 17.1 % (11.5-14.5) H 10/13/21 Plt Count 408 K/uL (130-400) H 10/13/21 MPV 10.3 fL (7.4-10.4) 10/13/21 Neutrophils (%) (Auto) 90.3 % 10/13/21 Lymphocytes (%) (Auto) 3.5 % 10/13/21 Monocytes # (Auto) 0.51 K/uL (0.11-0.59) 10/13/21 Eosinophils # (Auto) 0.02 K/uL (0-0.5) 10/13/21 Immature Granulocyte % (Auto) 0.4 % 10/13/21 Neutrophils # (Auto) 8.36 K/uL (1.4-6.5) H 10/13/21 Lymphocytes # (Auto) 0.32 K/uL (1.2-3.4) L 10/13/21 Monocytes # (Auto) 0.51 K/uL (0.11-0.59) 10/13/21 Eosinophils # (Auto) 0.02 K/uL (0-0.5) 10/13/21 Basophils # (Auto) 0.01 K/uL (0-0.2) 10/13/21 Immature Granulocyte # (Auto) 0.04 K/uL (0.00-0.02) H 10/13/21 Echinocytes 1+ 10/13/21 Schistocytes 1+ 10/13/21 Na 124 mmol/L (136-145) L 10/13/21 K 3.5 mmol/L (3.5-5.1) 10/13/21 Cl 88 mmol/L (98-107) L 10/13/21 CO2 28 mmol/L (21-32) 10/13/21 Anion Gap 8 (3-11) 10/13/21 BUN 12 mg/dl (6-23) 10/13/21 Creatinine 0.81 mg/dl (0.6-1.4) 10/13/21 Estimated GFR ( Amer) 112.0 ml/min 10/13/21 Estimated GFR (Non-Af Amer) 96.6 ml/min 10/13/21 BUN/Creatinine Ratio 14.8 (10-20) 10/13/21 Glu 84 mg/dl (70-99(Fasting)) 10/13/21 Ca 7.3 mg/dl (8.5-10.1) L 10/13/21 Phosphorus Level 3.3 mg/dl (2.5-4.9) 10/13/21 Mg 1.6 mg/dl (1.7-2.4) L 10/13/21 04:47 10/13/21 Calcium Level 7.3 mg/dl (8.5-10.1) L 10/13/21 04:47 10/13/21 William Test Pass 10/13/21 04:29 10/13/21 Microbiology 10/11/21 08:45 Gram Stain - Final Bronch Wash,Left Upper Lobe Bronchial Culture - Final Staph aureus MRSA 10/11/21 07:30 Gram Stain - Final Sputum,Vent Suction Sputum Culture - Final Staph aureus MRSA 10/09/21 13:00 Acid Fast Bacilli Smear - Final Sputum, Expectorated 10/10/21 06:45 Acid Fast Bacilli Smear - Final Sputum, Expectorated 10/11/21 08:45 Acid Fast Bacilli Smear - Final Bronch Wash,Left Upper Lobe Diagnostic Findings (Past 24 Hours) Chest X-Ray 10/13/21 07:00 XR chest 1V portable CLINICAL HISTORY: f/u COMPARISON STUDY: Chest radiograph October 12, 2021. FINDINGS: Endotracheal tube is satisfactorily positioned. Right-sided central line remains in place. Tip of nasogastric tube is below the lower aspect of this image but at least within the body of the stomach. No pneumothorax is present. Severe emphysema is again noted. There are small bilateral pleural effusions. Dense left upper lobe consolidation is again noted. There is also bilateral lower lobe airspace opacity. Findings have slightly improved. There is mild interstitial thickening. IMPRESSION: 1. Slight improvement in extensive multifocal pneumonia. 2. Satisfactory positioning of lines and tubes. 3. Severe emphysema. 4. Small bilateral pleural effusions. 5. Interstitial thickening. This could reflect superimposed mild pulmonary edema. ACT 112: Negative or not required by law. Electronically signed by: Sergei Beckwith M.D. 10/13/2021 10:11 AM I & O Totals 24 Hours 10/12/21 10/13/21 10/14/21 06:59 06:59 06:59 Intake Total 4292.187 / 4292.187 5464.1503 / 5464.1503 1702.114 / 1702.114 Output Total 3325 / 3325 1700 / 1700 260 / 260 Balance 967.187 / 860.142 2490.1503 / 3764.1503 1442.114 / 1442.114 Cumulative 10/08/21 19:31 thru 10/13/21 12:00 Intake Total 48243.8213 Output Total 31607 Balance 61824.8213 RT Ventilator Mngmt (Last Documented) Ventilator Ordered Settings Ventilator Support Mode Assist Control 10/13/21 12:10 Respiratory Rate 37 10/13/21 13:00 Ventilator Tidal Volume 440 10/13/21 12:10 Setting Minute Ventilation 12.3 10/13/21 12:10 Positive End Expiratory 12 10/13/21 12:10 Pressure Fraction of Inspired Oxygen 70 10/13/21 12:10 Peak Inspiratory Flow 44 10/11/21 15:58 Machine Comment changes made post ABG verbal 10/13/21 04:38 orders by Shola ZAMORA Ventilator - PT Measurements Respiratory Rate 37 Exhaled Tidal Volume 440 Minute Ventilation 12.3 Peak Inspiratory Airway 32 Pressure Plateau Pressure 26.5 Respiratory Cycle Inspiratory: 1:1.9 Expiratory Ratio Inspiratory Phase Time 0.75 End-Tidal CO2 30 Static Lung Compliance 30.34 Dynamic Lung Compliance 22.00 Normal Static Lung Compliance 46.00 Patient Measurements Comment circuit changed, other RT bagged pt whilst the change was being made, no issues Coding Level of Care Code Critical Care 1st 30-74 mins Diagnoses MRSA pneumonia J15.212 Pneumonia J18.9 Laterality: left Lung location: upper lobe of lung Pneumonia type: due to unspecified organism Hypoxemic respiratory failure, chronic J96.11 Acute hypotension I95.9 Lumbar disc herniation with radiculopathy M51.16 Rheumatoid arthritis M06.9 Chronic pain syndrome G89.4 Hypothyroidism E03.9 T2DM (type 2 diabetes mellitus) E11.9 (1) Pneumonia Laterality: left Lung location: upper lobe of lung Pneumonia type: due to unspecified organism Qualified Code(s): J18.9 - Pneumonia, unspecified organism
[2021-10-13] MEDS ORDERED: LINEZOLID 600 MG/300 ML BAG IV STA (09:44)
[2021-10-13] MEDS: guaiFENesin 600 MG TABCR PO SCH (10:02)
[2021-10-13] MEDS: VENLAFAXINE HCL XR 75 MG CAPXR PO SCH (10:03)
[2021-10-13] MEDS: UMECLIDINIUM BROMIDE 62.5MCG/BLISTER 7 PUFFS/INHALER INH SCH (10:03)
[2021-10-13] MEDS: VENLAFAXINE HCL XR 150 MG CAPXR PO SCH (10:03)
--- NOTE | 2021-10-13 10:13 | XRay Report ---
XR chest 1V portable CLINICAL HISTORY: f/u COMPARISON STUDY: Chest radiograph October 12, 2021. FINDINGS: Endotracheal tube is satisfactorily positioned. Right-sided central line remains in place. Tip of nasogastric tube is below the lower aspect of this image but at least within the body of the s tomach. No pneumothorax is present. Severe emphysema is again noted. There are small bilateral pleura l effusions. Dense left upper lobe consolidation is again noted. There is also bilateral lower lobe a irspace opacity. Findings have slightly improved. There is mild interstitial thickening. IMPRESSION: 1. Slight improvement in extensive multifocal pneumonia. 2. Satisfactory positioning of lines and tubes. 3. Severe emphysema. 4. Small bilateral pleural effusions. 5. Interstitial thickening. This could reflect superimposed mild pulmonary edema. ACT 112: Negative or not required by law. Electronically signed by: Sergei Beckwith M.D. 10/13/2021 10:11 AM
[2021-10-13] MEDS: DOCUSATE SODIUM 100 MG CAP PO SCH ×2 (10:16→20:03)
[2021-10-13] MEDS: fentaNYL citrate 2,500 MCG/250 ML BAG IV SCH (12:20)
--- NOTE | 2021-10-13 12:25 | Pharmacy Report ---
Pharmacy Glycemic Short Note 2 - Date of Service October 13, 2021 - Glycemic Short BSG Results (Last 24 hours): 10/12/21 10/12/21 10/13/21 14:52 19:50 00:00 Glucose POC Glucose (other) 176 H 191 H 154 H 10/13/21 10/13/21 04:47 07:45 Glucose 84 POC Glucose (other) 112 H OUTPATIENT ANTIDIABETIC REGIMEN: * N/a * HbA1c = 6.0% (10/09/21) ASSESSMENT: 10/13 * Remains critically ill in ICU on steroids, pressors, and antibiotics. Peptamen 1.5 iggy started yesterday, but currently only ordered as trickle feeds * BSG goal range 140-180 mg/dL for critically ill patient. Two most recent BSG's below goal range. * Will hold all Lantus * OK to use a Novolog goal range of 110-140 mg/dL in the *order* as this will provide "basal" insulin for any BSG 140-180 mg/dL, but will be held if BSG is below goal 10/12 * Patient continued on insulin drip this AM, BSGs now falling lower 100s, on recheck 114 mg/dL - instructed RN to hold insulin drip for now * Dextrose fluids discontinued this AM, possibly contributing to higher BSGs yesterday evening/overnight * Orders in for TF @10ml/hr - no titration parameters. Plan to use novolog q4 hr checks for coverage * Will add conservative scale for Lantus BID 0-5 units based upon BSG value 10/11 * Pt's condition worsened early yesterday AM and he was subsequently intubated. Pt underwent bronchoscopy yesterday. * Pt is currently receiving IV SoluMedrol 40mg IV daily. * He is receiving pressure support with norepinephrine, phenylephrine, and vasopressin. * Pt was placed on IVF containing dextrose. He continues to receive broad- spectrum antibiotics * Last evening, pt became significantly hyperglycemic (BSG 349mg/dL). As a result, IV insulin infusion was initiated. * Started conservatively, in the setting of recent hypoglycemia. PLAN FOR INPATIENT GLYCEMIC CONTROL: * Basal - hold Lantus * Novolog Q4 hr with tubefeeds * Goal range 110-140 mg/dL * Correction factor: 35 mg/dL/unit * Carb ratio: 12 g CHO/unit
[2021-10-13] MEDS: PEPTAMEN 1.5 CAL 1,000 ML BAG OG SCH (18:26)
[2021-10-13] MEDS: ROSUVASTATIN CALCIUM 5 MG TAB PO SCH (20:02)
[2021-10-13] MEDS ORDERED: LINEZOLID 600 MG/300 ML BAG IV SCH (22:00)
[2021-10-14] MEDS: INSULIN ASPART PER UNIT SC SCH ×6 (00:11→20:26)
[2021-10-14] MEDS: PIPERACILLIN/TAZOBACTAM 4.5 GM in DEXTROSE 5% 100 ML IV SCH (02:04)
[2021-10-14] MEDS: ALBUT/IPRATROP 3MG/0.5MG NEB 3 ML VIAL INH SCH ×4 (02:20→19:34)
[2021-10-14] MEDS: VASOPRESSIN 20 UNITS in 0.9 % SODIUM CHLORIDE 100 ML IV SCH (03:23)
[2021-10-14] MEDS: TUBE FEEDING WATER FLUSH OG SCH ×4 (03:36→18:32)
[2021-10-14 05:09] LABS: Hematocrit (blood only) 26.8 % (42-52); Hemoglobin 9.2 g/dL (14.0-18.0); Mean Corpuscular Hemoglobin 32.7 pg (25-34); Mean Corpuscular Hgb Conc 34.3 g/dL (32-36); Mean Corpuscular Volume 95.4 fL (80-100); Platelet Count 350 K/uL (130-400); RDW Standard Deviation 58.6 fL (36.4-46.3); Red Blood Count 2.81 M/uL (4.7-6.1); White Blood Count 14.08 K/uL (4.8-10.8)
[2021-10-14] MEDS: NOREPINEPHRINE/D5W 8 MG/508 ML BAG IV SCH (05:11)
[2021-10-14 05:33] LABS: BUN Creatinine Ratio 15.6 (10-20); Calcium 7.2 mg/dl (8.5-10.1); Creatinine Clr Calc Pharmacy 95.1 ml/min; Est GFR (African American) 114.3 ml/min; Est GFR (Non-African American) 98.6 ml/min; Magnesium 1.9 mg/dl (1.7-2.4); Phosphorus 2.6 mg/dl (2.5-4.9); Potassium 3.3 mmol/L (3.5-5.1)
[2021-10-14 05:40] LABS: iSTAT Art Bld Gas pCO2 Correct 56 mmHg (35-46); iSTAT Art Bld Gas pH Corrected 7.349 (7.35-7.45); iSTAT Arterial Blood Gas HCO3 31 meg/L (19-24); iSTAT Arterial Blood Gas pCO2 57 mmHg (35-46); iSTAT Arterial Blood Gas pH 7.35 (7.35-7.45); iSTAT Arterial Blood Gas pO2 94 mmHg (80-95); iSTAT Arterial Blood Gas pO2 C 92; iSTAT Carbon Dioxide 33 mmol/L (24-31); iSTAT FiO2 65 %; iSTAT Hematocrit 29 % (42-52); iSTAT Hemoglobin 9.9 g/dl (14.0-18.0); iSTAT Potassium 3.4 mmol/L (3.3-5.0); iSTAT Site Art Line; iSTAT Sodium 117 mmol/L (135-144)
[2021-10-14 05:41] LABS: Basophils # (auto) 0.01 K/uL (0-0.2); Basophils % (auto) 0.1 %; Dohle Bodies 1+; Eosinophils # (auto) 0.04 K/uL (0-0.5); Eosinophils % (auto) 0.3 %; Immature Granulocytes % (auto) 1.4 %; Lymphocytes # (auto) 0.74 K/uL (1.2-3.4); Lymphocytes % (auto) 5.3 %; Monocytes # (auto) 1.03 K/uL (0.11-0.59); Monocytes % (auto) 7.3 %; Neutrophils # (auto) 12.06 K/uL (1.4-6.5); Neutrophils % (auto) 85.6 %
--- NOTE | 2021-10-14 06:09 | Hospitalist Progress Note ---
Date of Service October 14, 2021 Assessment & Plan (1) Pneumonia: Plan: 60-year-old male past medical history significant for severe bullous emphysema, COPD, and RA on MTX presenting to the hospital due to acute on chronic hypoxemic and hypercapnic respiratory failure. The cause of his acute decompensation is thought to be a multifocal community-acquired PNA and subsequent COPD exacerbation. He was admitted directly to the ICU for vasoactive medication management. Ventilatory-Dependent Respiratory Failure (Acute on chronic hypoxemic and hypercapnic respiratory failure) - secondary to multifocal PNA + acute exacerbation of COPD - MRSA+ from sputum culture - Improvements noted on ABG 10/14 s/p bronch#2 and transition to linezolid (PEEP also higher) - s/p bronchoscopy 10/11 + 10/14 with aspiration of L upper lobe mucous plug - Continue Versed and Fentanyl while intubated - SpO2 goal 88-92% Hypotension - Multifactorial - sedation + sepsis - Currently requiring NE and vasopressin -- ween as able - Random cortisol AM (10/13) - 25 - Continue prednisone therapy Hyponatremia - Appears clinically euvolemic on exam ; noted that patient is up +12L since admission - Progressively downtrending Na to ~118 in the AM of 10/14 - Check sOsm, uOsm, Rasta, UCr - Possibly SIADH secondary to critical illness and severe PNA, alongside contribution from linezolid Sepsis secondary to MRSA PNA - SIRS and SOFA met on admission in presence of elevated PCT, ESR, CRP - Source: Chest CT showing multifocal PNA - sputum, bronch cultures growing MRSA - acid fast, fungal smears NEGATIVE - initial and repeat BCX - NGTD (though pending) - Resp Biofire panel neg - Quantiferon Gold - Indeterminate ; TB antigens negative - ID consulted, reported 10/13: - Transition from linezolid --> clindamycin - D/C Zosyn - With negative AFB smear given multiple negative bronch and sputum samples, unlikely TB - s/p Azithromycin (atypical coverage) COPD with Exacerbation - in exacerbation due to multifocal PNA - s/p azithromycin - Hold steroid inhalers - continue IV methylprednisolone 40mg IV QD per ICU - Continue scheduled duonebs - given the extent of his PNA, anticipate mucous plugging as PNA is resolving s/p bronch x 2; Mucinex, flutter valve and chest PT ongoing - no home oxygen requirement YOON on CKD: resolved - Cr elevated to 1.4 on admission. Baseline Cr ~1.0 - likely pre-renal due to reduced perfusion in setting of acute sepsis - resolved with IVF resuscitation Leukopenia -- resolved, now with leukocytosis - Likely secondary to sepsis; poor prognostic indicator - trend CBC Alcohol use disorder in remission, cirrhosis: - No indication for AWSS protocol at this time. - no known varices - complication of neuropathy; continue home dose gabapentin PAD - continue home dose statin + aspirin Depression/Anxiety - Hold home dose venlafaxine, remeron and buspar while intubated Rheumatoid arthritis: - Hold methotrexate in the setting of sepsis secondary to bacterial infection. Chronic pain, Idiopathic Polyneuropathy - Patient may have his at home oxycodone and gabapentin if able to verbalize needs and swallow effectively otherwise IV morphine if n.p.o. DM2: - A1c 6.0 - short acting insulin ordered with carb ratio - carb consistent diet when not NPO - ICU hyperglycemia protocol Hypothyroidism - continue home dose levothyroxine GERD: - PPI while on steroids. CODE STATUS: Previously CC (DNR) -- transitioned to DNR/DNI on 10/13 FEN:NPO DVT prophylaxis: Heparin 5000 units SQ every 12 hours Dispo: ICU (2) Acute exacerbation of chronic obstructive pulmonary disease: (3) Respiratory failure: (4) History of alcohol use: (5) Rheumatoid arthritis: (6) Cirrhosis, alcoholic: (7) T2DM (type 2 diabetes mellitus): Admission and Anticipated Discharge Date Admission Date: October 08, 2021 Supervising Physician Co-Signing Physician Notes Attending attestation Pt seen and examined in concert with Dr. Tejada. In agreement with the documented findings as noted in the resident documentation with any exceptions or additions as noted here. Patient sedated/on ventilation, unable to converse. On examination, diffuse coarse breath sounds on ventilation. VDRF, aucte on chronic hypoxemic and hypercapnic respiratory failure 2/2 MRSA PNA s/p bronchoscopy - comprehensive ophthalmologist management appreciated - transition to clindamycin Hyponatremia - sOsm, uOsm, Rasta, UCr pending. Close monitoring (q6h) Else see resident documentation as noted. Subjective No meaningful history obtained given sedated and intubated status. Review of Systems Review of Systems: as per HPI Physical Exam Physical Exam: General: 60-year old male who is mechanically ventilated. HEENT: NCAT. ETT in place. - Neck - supple, no appreciable JVD Cardiac: Tachycardic with regular rhythm; S1 and S2 present with no murmurs, rubs, or gallops. Pulmonary: Mechanically ventilated. Lung sounds are coarse and rhonchi are noted throughout, L>R Abdominal: Abdomen was soft, nondistended Extremities: Upper and lower extremities are warm and well perfused. Capillary refill < 2 seconds. Results & Data Results & Data ([facility]) Vital Signs (Past 12 Hours) Vital Signs Temp Pulse Pulse Resp BP Pulse Ox 10/14/21 04:15 77 29 H 99 10/14/21 03:00 36.9 C 76 28 H 100 10/14/21 02:20 77 28 H 97 10/14/21 02:00 37.0 C 75 28 H 100 10/14/21 01:00 37.0 C 77 28 H 100 10/14/21 00:00 37.1 C 80 28 H 100 10/13/21 23:55 77 29 H 99 10/13/21 23:02 37.3 C 79 28 H 120/69 100 10/13/21 23:00 37.4 C 78 29 H 100 10/13/21 22:00 37.5 C 87 28 H 99 10/13/21 21:00 37.5 C 80 80 28 H 97 10/13/21 20:00 37.7 C H 87 28 H 100 10/13/21 19:00 37.9 C H 91 H 28 H 100 Resident Activity Tracking Resident Involvement: Resident Care Provided Care Provided: Adult Hospital Medicine (1) Respiratory failure Chronicity: acute Respiratory failure complication: hypoxia Qualified Code(s): J96.01 - Acute respiratory failure with hypoxia (2) Pneumonia Laterality: left Lung location: upper lobe of lung Pneumonia type: due to unspecified organism Qualified Code(s): J18.9 - Pneumonia, unspecified organism
[2021-10-14] MEDS: fentaNYL citrate 2,500 MCG/250 ML BAG IV SCH (08:03)
[2021-10-14] MEDS: SENNA 8.6 MG TAB PO SCH ×2 (08:04→20:07)
[2021-10-14] MEDS: HEPARIN SOD 5,000 UNIT/0.5 ML VIAL SQ SCH ×2 (08:04→20:07)
[2021-10-14] MEDS: DOCUSATE SODIUM 100 MG CAP PO SCH ×2 (08:05→20:15)
[2021-10-14] MEDS: DOCUSATE SODIUM/SENNA 50/8.6MG TAB PO SCH (08:05)
[2021-10-14] MEDS ORDERED: SODIUM CHLORIDE 3 % 50 ML IV ONE (08:05)
[2021-10-14] MEDS: MULTI VIT W/MINERALS LIQUID 15 ML UDP NG SCH (08:15)
[2021-10-14] MEDS: ASPIRIN 81 MG ECTAB PO SCH (08:15)
[2021-10-14] MEDS: methylPREDNISolone 40 MG in SYRINGE 0 ML IV SCH (08:16)
[2021-10-14] MEDS: PANTOprazole 40 MG in SYRINGE 0 ML IV SCH (08:16)
[2021-10-14] MEDS: UMECLIDINIUM BROMIDE 62.5MCG/BLISTER 7 PUFFS/INHALER INH SCH (08:17)
[2021-10-14] MEDS: LEVOTHYROXINE SODIUM 25 MCG in SYRINGE 0 ML IV SCH (08:35)
[2021-10-14 09:22] LABS: Creatinine Urine Random 44.9 mg/dl
--- NOTE | 2021-10-14 09:58 | Critical Care Progress Note ---
Date of Service October 14, 2021 Assessment & Plan (1) MRSA pneumonia: (2) Pneumonia: Plan: Reason Critically Ill: 60-year-old male with a past medical history of severe bullous emphysema and COPD presenting to the hospital due to acute pneumonia and combined acute on chronic hypoxemic and hypercapnic respiratory failure Neuro - Idiopathic polyneuropathy, chronic pain syndrome, Depression, metabolic encephalopathy CAM ICU: Negative - No focal deficits -Hold gabapentin -Hold carbamazepine -Hold BuSpar -Continue Versed and fentanyl while intubated. Goal RASS of -1. Cardiac - HYPOTENSION, SEPSIS, ELEVATED TROPONIN - SEPSIS secondary from Pneumonia- bacterial presumed -Hypotension: improved, off phenylephrine attempt to turn off vasopressin. Respiratory - Multifocal Bacterial PNA greatest left upper lobe, COPD bullous emphysema, chronic oxygen therapy, chronic respiratory failure - Acute on chronic respiratory failure secondary to pneumonia- - transition to monotherapy clindamycin -Sputum cultures positive for MRSA. - Respiratory biofire negative - Supplemental oxygen to maintain SPO2 88-92% -Hold steroid inhalers given MRSA pneumonia -transition to 40 mg prednisone x 3 days then 30mg x 3 days, then 20mg x 3 days, then 10mg x 3 days then 5mg x 3 days then stop - Notifed infection control to possibly discontinue negative pressure precautions -Status post bronchoscopy 10/11/2021 with aspiration of a left upper lobe mucous plug. - S/P Bronchoscopy 10/13 - Ventilation day 4 GI - No acute needs- HX cirrhosis, GERD - trickle tube feeds today. - No known Varices RENAL/LYTES - YOON type II Hyponatremia - Urine lytes - 50 mL 3% saline - trend Na every 6 hours - Stop linazolid -Hypokalemia -18 mmol K-Phos -Hypomagnesemia: resolved MSK: L4-L5 herniation with radiculopathy ENDO - TYPE II DM, HYPOTHYROID - ICU glycemic protocol- goal < 180mg/dl - Continue Synthroid -TSH within normal limits. HEME - Leukopenia, anemia. RA - leukopenia likely secondary to sepsis - No acute blood loss noted- recent colonoscopy noted hemorrhoids, and rectal polyp - Continue FESO4 tabs MCV normal - - HOLD methotrexate ID -MRSA pneumonia - ESR elevated, but also with history of RA -Blood cultures negative to date -QuantiFERON gold pending. AFB sputum cultures: negative. Staph MRSA seen on sputum cultures. Bronchoscopy performed 10/11 and culture sent. - Zosyn Day 5 days, discontinue today, Azithro: finishing 10/13, Vanco Day 10/07 finsihed 10/12, then 1 day linazolid, transition to IV clindamycin for 14 days total therapy: day 12/11 -Transition from linezolid to clindamycin, concern for SIADH may be related to linezolid and less drug drug interactions - ID consult reviewed LINES/IV ACCESS - - PIV -Right IJ placed 10/11/2021 - Right arterial line 10/11/21 DVT PROPHYLAXIS - - HEPARIN 5000 units sub q q12 Patient DNR/DNI in event of cardiac arrest Prognosis guarded. CRITICAL CARE TIME - I have personally spent 40 minutes of critical care time in the direct management of this patient. This is a life/limb threatening event. This includes time spent evaluating patient, direct bedside care, chart review, placing orders, interpretation of diagnostic studies, discussion with consultants, patient, and family members, as well as other required patient management activities. This time is exclusive of all separately billable procedures, and teaching time and separate from and in addition to any other critical care service time. (3) Hypoxemic respiratory failure, chronic: (4) Acute hypotension: (5) Lumbar disc herniation with radiculopathy: (6) Rheumatoid arthritis: (7) Chronic pain syndrome: (8) Hypothyroidism: (9) T2DM (type 2 diabetes mellitus): Admission and Anticipated Discharge Date Admission Date: October 08, 2021 Subjective No overnight events Review of Systems Review of Systems: Unobtainable due to endotracheal tube Physical Exam Physical Exam: General: Sedated. nontoxic. Skin: Warm, dry, Head: Atraumatic Ears, nose, mouth and throat: airway obscured by endotracheal tube Cardiovascular: Normal peripheral perfusion Respiratory: Ventilator settings reviewed Gastrointestinal: Non distended Musculoskeletal: No deformity Results & Data Results & Data ([facility]) Vital Signs (Past 12 Hours) Vital Signs Temp Pulse Pulse Resp BP Pulse Ox 10/14/21 09:00 36.6 C 87 28 H 96 10/14/21 08:00 36.7 C 88 28 H 94/60 L 92 10/14/21 07:55 83 28 H 96 10/14/21 06:00 36.7 C 73 29 H 100 10/14/21 05:00 36.8 C 76 29 H 100 10/14/21 04:15 77 29 H 99 10/14/21 04:00 36.8 C 73 28 H 100 10/14/21 03:00 36.9 C 76 28 H 100 10/14/21 02:20 77 28 H 97 10/14/21 02:00 37.0 C 75 28 H 100 10/14/21 01:00 37.0 C 77 28 H 100 10/14/21 00:00 37.1 C 80 28 H 100 10/13/21 23:55 77 29 H 99 10/13/21 23:02 37.3 C 79 28 H 120/69 100 10/13/21 23:00 37.4 C 78 29 H 100 10/13/21 22:00 37.5 C 87 28 H 99 Critical Care Results & Data Vital Signs (Past 12 Hours) Vital Signs Temp Pulse Pulse Resp BP Pulse Ox 10/14/21 09:00 36.6 C 87 28 H 96 10/14/21 08:00 36.7 C 88 28 H 94/60 L 92 10/14/21 07:55 83 28 H 96 10/14/21 06:00 36.7 C 73 29 H 100 10/14/21 05:00 36.8 C 76 29 H 100 10/14/21 04:15 77 29 H 99 10/14/21 04:00 36.8 C 73 28 H 100 10/14/21 03:00 36.9 C 76 28 H 100 10/14/21 02:20 77 28 H 97 10/14/21 02:00 37.0 C 75 28 H 100 10/14/21 01:00 37.0 C 77 28 H 100 10/14/21 00:00 37.1 C 80 28 H 100 10/13/21 23:55 77 29 H 99 10/13/21 23:02 37.3 C 79 28 H 120/69 100 10/13/21 23:00 37.4 C 78 29 H 100 10/13/21 22:00 37.5 C 87 28 H 99 Lab & Micro Results (Past 24 Hours) RBC 2.81 M/uL (4.7-6.1) L 10/14/21 WBC 14.08 K/uL (4.8-10.8) H 10/14/21 Hgb 9.2 g/dL (14.0-18.0) L 10/14/21 Hct 26.8 % (42-52) L 10/14/21 MCV 95.4 fL (80-100) 10/14/21 MCH 32.7 pg (25-34) 10/14/21 MCHC 34.3 g/dL (32-36) 10/14/21 RDW Standard Deviation 58.6 fL (36.4-46.3) H 10/14/21 RDW Coefficient of Variation 17.0 % (11.5-14.5) H 10/14/21 Plt Count 350 K/uL (130-400) 10/14/21 MPV 10.0 fL (7.4-10.4) 10/14/21 Neutrophils (%) (Auto) 85.6 % 10/14/21 Lymphocytes (%) (Auto) 5.3 % 10/14/21 Monocytes # (Auto) 1.03 K/uL (0.11-0.59) H 10/14/21 Eosinophils # (Auto) 0.04 K/uL (0-0.5) 10/14/21 Immature Granulocyte % (Auto) 1.4 % 10/14/21 Neutrophils # (Auto) 12.06 K/uL (1.4-6.5) H 10/14/21 Lymphocytes # (Auto) 0.74 K/uL (1.2-3.4) L 10/14/21 Monocytes # (Auto) 1.03 K/uL (0.11-0.59) H 10/14/21 Eosinophils # (Auto) 0.04 K/uL (0-0.5) 10/14/21 Basophils # (Auto) 0.01 K/uL (0-0.2) 10/14/21 Immature Granulocyte # (Auto) 0.20 K/uL (0.00-0.02) H 10/14/21 Dohle Bodies 1+ 10/14/21 Na 118 mmol/L (136-145) L* 10/14/21 K 3.3 mmol/L (3.5-5.1) L 10/14/21 Cl 82 mmol/L (98-107) L 10/14/21 CO2 29 mmol/L (21-32) 10/14/21 Anion Gap 7 (3-11) 10/14/21 BUN 12 mg/dl (6-23) 10/14/21 Creatinine 0.77 mg/dl (0.6-1.4) 10/14/21 Estimated GFR ( Amer) 114.3 ml/min 10/14/21 Estimated GFR (Non-Af Amer) 98.6 ml/min 10/14/21 BUN/Creatinine Ratio 15.6 (10-20) 10/14/21 Glu 141 mg/dl (70-99(Fasting)) H 10/14/21 Ca 7.2 mg/dl (8.5-10.1) L 10/14/21 Phosphorus Level 2.6 mg/dl (2.5-4.9) 10/14/21 Mg 1.9 mg/dl (1.7-2.4) 10/14/21 04:55 10/14/21 Calcium Level 7.2 mg/dl (8.5-10.1) L 10/14/21 04:55 10/14/21 William Test NA 10/14/21 05:09 10/14/21 Microbiology 10/08/21 20:05 Aerobic Blood Culture - Final Blood No growth in Aerobic bottle after 5 days. Anaerobic Blood Culture - Final No growth in Anaerobic bottle after 5 days. 10/08/21 20:21 Aerobic Blood Culture - Final Blood No growth in Aerobic bottle after 5 days. Anaerobic Blood Culture - Final No growth in Anaerobic bottle after 5 days. 10/09/21 01:50 Gram Stain - Final Sputum, Expectorated Sputum Culture - Final Staph aureus MRSA 10/13/21 05:34 Aerobic Blood Culture - Preliminary Blood No growth in Aerobic bottle after 24 hours. Anaerobic Blood Culture - Preliminary No growth in Anaerobic bottle after 24 hours. 10/13/21 05:43 Aerobic Blood Culture - Preliminary Blood No growth in Aerobic bottle after 24 hours. Anaerobic Blood Culture - Preliminary No growth in Anaerobic bottle after 24 hours. 10/11/21 08:45 Fungal Smear - Final Bronch Wash,Left Upper Lobe Fungal Culture - Preliminary No yeast or fungus isolated - Report 1, Additional Report to Follow. 10/11/21 08:45 Gram Stain - Final Bronch Wash,Left Upper Lobe Bronchial Culture - Final Staph aureus MRSA 10/11/21 07:30 Gram Stain - Final Sputum,Vent Suction Sputum Culture - Final Staph aureus MRSA Diagnostic Findings (Past 24 Hours) Chest X-Ray 10/13/21 07:00 XR chest 1V portable CLINICAL HISTORY: f/u COMPARISON STUDY: Chest radiograph October 12, 2021. FINDINGS: Endotracheal tube is satisfactorily positioned. Right-sided central line remains in place. Tip of nasogastric tube is below the lower aspect of this image but at least within the body of the stomach. No pneumothorax is present. Severe emphysema is again noted. There are small bilateral pleural effusions. Dense left upper lobe consolidation is again noted. There is also bilateral lower lobe airspace opacity. Findings have slightly improved. There is mild interstitial thickening. IMPRESSION: 1. Slight improvement in extensive multifocal pneumonia. 2. Satisfactory positioning of lines and tubes. 3. Severe emphysema. 4. Small bilateral pleural effusions. 5. Interstitial thickening. This could reflect superimposed mild pulmonary edema. ACT 112: Negative or not required by law. Electronically signed by: Sergei Beckwith M.D. 10/13/2021 10:11 AM I & O Totals 24 Hours 10/13/21 10/14/21 10/15/21 06:59 06:59 06:59 Intake Total 5464.1503 / 5464.1503 3719.443 / 3719.443 64.833 / 64.833 Output Total 1700 / 1700 1630 / 1630 Balance 3764.1503 / 3764.1503 2089.443 / 2089.443 64.833 / 64.833 Cumulative 10/08/21 19:31 thru 10/14/21 09:28 Intake Total 70864.9833 Output Total 38607 Balance 74048.9833 RT Ventilator Mngmt (Last Documented) Ventilator Ordered Settings Ventilator Support Mode Assist Control 10/14/21 07:55 Respiratory Rate 28 10/14/21 09:00 Ventilator Tidal Volume 440 10/14/21 07:55 Setting Minute Ventilation 12.3 10/14/21 07:55 Positive End Expiratory 12 10/14/21 07:55 Pressure Fraction of Inspired Oxygen 65 10/14/21 08:00 Peak Inspiratory Flow 44 10/11/21 15:58 Machine Comment changes made post ABG verbal 10/13/21 04:38 orders by Shola ZAMORA Ventilator - PT Measurements Respiratory Rate 28 Exhaled Tidal Volume 443 Minute Ventilation 12.3 Peak Inspiratory Airway 24 Pressure Plateau Pressure 18.4 Respiratory Cycle Inspiratory: 1:1.9 Expiratory Ratio Inspiratory Phase Time 0.75 End-Tidal CO2 25 Static Lung Compliance 69.22 Dynamic Lung Compliance 36.92 Normal Static Lung Compliance 48.00 Patient Measurements Comment circuit changed, other RT bagged pt whilst the change was being made, no issues Coding Level of Care Code Critical Care 1st 30-74 mins Diagnoses MRSA pneumonia J15.212 Pneumonia J18.9 Laterality: left Lung location: upper lobe of lung Pneumonia type: due to unspecified organism Hypoxemic respiratory failure, chronic J96.11 Acute hypotension I95.9 Lumbar disc herniation with radiculopathy M51.16 Rheumatoid arthritis M06.9 Chronic pain syndrome G89.4 Hypothyroidism E03.9 T2DM (type 2 diabetes mellitus) E11.9 (1) Pneumonia Laterality: left Lung location: upper lobe of lung Pneumonia type: due to unspecified organism Qualified Code(s): J18.9 - Pneumonia, unspecified organism
--- NOTE | 2021-10-14 10:26 | XRay Report ---
XR chest 1V portable CLINICAL HISTORY: f/u COMPARISON STUDY: Chest radiograph October 13, 2021. FINDINGS: Endotracheal tube is satisfactorily positioned. Right internal jugular central line remains in place. Tip of nasogastric tube is below the lower aspect of this image but at least within the st omach. There is severe emphysema. No pneumothorax is present. There are possible trace bilateral pleu ral effusions. Multifocal consolidation, greatest within left upper lobe, persists. IMPRESSION: 1. No significant change in multifocal pneumonia. 2. Severe emphysema. 3. Satisfactory positioning of lines and tubes. ACT 112: Negative or not required by law. Electronically signed by: Sergei Beckwith M.D. 10/14/2021 10:24 AM
[2021-10-14] MEDS: CLINDAMYCIN 600 MG in DEXTROSE 5% 50 ML IV SCH ×2 (11:05→18:34)
[2021-10-14] MEDS ORDERED: POTASSIUM PHOSPHATE 9 MMOL in SODIUM CHLORIDE 0.9% 250 ML IV ONE (11:45)
[2021-10-14 13:05] LABS: Urine Potassium 46.1 mmol/L
[2021-10-14] MEDS: ROSUVASTATIN CALCIUM 5 MG TAB PO SCH (20:07)
[2021-10-14] MEDS: PEPTAMEN 1.5 CAL 1,000 ML BAG OG SCH (21:00)
[2021-10-14] MEDS: MIDAZOLAM HCL 125 MG/250 ML BAG IV SCH (22:38)
[2021-10-15] MEDS: INSULIN ASPART PER UNIT SC SCH ×6 (00:38→20:34)
[2021-10-15] MEDS: ALBUT/IPRATROP 3MG/0.5MG NEB 3 ML VIAL INH SCH ×4 (00:43→19:40)
[2021-10-15] MEDS: CLINDAMYCIN 600 MG in DEXTROSE 5% 50 ML IV SCH ×3 (01:58→17:02)
[2021-10-15] MEDS: NOREPINEPHRINE/D5W 8 MG/508 ML BAG IV SCH ×3 (01:58→12:22)
[2021-10-15] MEDS: TUBE FEEDING WATER FLUSH OG SCH ×3 (01:58→17:02)
[2021-10-15 05:08] LABS: Basophils # (auto) 0.02 K/uL (0-0.2); Basophils % (auto) 0.1 %; Eosinophils # (auto) 0.02 K/uL (0-0.5); Eosinophils % (auto) 0.1 %; Hematocrit (blood only) 27.6 % (42-52); Hemoglobin 9.8 g/dL (14.0-18.0); Immature Granulocytes # (auto) 0.28 K/uL (0.00-0.02); Immature Granulocytes % (auto) 1.6 %; Lymphocytes # (auto) 1.07 K/uL (1.2-3.4); Lymphocytes % (auto) 6.2 %; Mean Corpuscular Hemoglobin 33.6 pg (25-34); Mean Corpuscular Hgb Conc 35.5 g/dL (32-36); Mean Corpuscular Volume 94.5 fL (80-100); Mean Platelet Volume 10.8 fL (7.4-10.4); Monocytes # (auto) 0.86 K/uL (0.11-0.59); Neutrophils # (auto) 14.92 K/uL (1.4-6.5); Platelet Count 380 K/uL (130-400); RDW Standard Deviation 58.2 fL (36.4-46.3); Red Blood Count 2.92 M/uL (4.7-6.1); White Blood Count 17.17 K/uL (4.8-10.8)
[2021-10-15 05:27] LABS: iSTAT Arterial Blood Gas HCO3 33 meg/L (19-24); iSTAT Arterial Blood Gas pCO2 55 mmHg (35-46); iSTAT Arterial Blood Gas pH 7.39 (7.35-7.45); iSTAT Arterial Blood Gas pO2 70 mmHg (80-95); iSTAT Carbon Dioxide 34 mmol/L (24-31); iSTAT FiO2 50 %; iSTAT Site Art Line
[2021-10-15 05:44] LABS: Calcium 7.9 mg/dl (8.5-10.1); Creatinine Clr Calc Pharmacy 96.6 ml/min; Est GFR (African American) 110.3 ml/min; Est GFR (Non-African American) 95.2 ml/min; Magnesium 1.9 mg/dl (1.7-2.4); Phosphorus 2.7 mg/dl (2.5-4.9); Potassium 3.5 mmol/L (3.5-5.1)
[2021-10-15] MEDS: fentaNYL citrate 2,500 MCG/250 ML BAG IV SCH (06:18)
--- NOTE | 2021-10-15 06:48 | Hospitalist Progress Note ---
Date of Service October 15, 2021 Assessment & Plan (1) Pneumonia: Plan: 60-year-old male past medical history significant for severe bullous emphysema, COPD, and RA on MTX presenting to the hospital due to acute on chronic hypoxemic and hypercapnic respiratory failure. The cause of his acute decompensation is thought to be a multifocal community-acquired PNA and subsequent COPD exacerbation. He was admitted directly to the ICU for vasoactive medication management. Ventilatory-Dependent Respiratory Failure (Acute on chronic hypoxemic and hypercapnic respiratory failure) - secondary to multifocal PNA + acute exacerbation of COPD - MRSA+ from sputum culture - Progressive improvements noted on ABG 10/14 following bronch#2 and transition to clindamycin - s/p bronchoscopy 10/11 + 10/14 with aspiration of L upper lobe mucous plug - Continue Versed and Fentanyl while intubated - SpO2 goal 88-92% Hypotension - Multifactorial - sedation + sepsis - Currently requiring only NE -- vasopressin, phenylephrine discontinued - Continue prednisone taper (random cortisol normal) - Maintain MAP > 65 Hyponatremia - Appears clinically euvolemic on exam - Initially downtrending Na to ~118 through the AM of 10/14 - sOsm low, uOsm high - suggestive of SIADH - suspect secondary to critical illness/PNA and linezolid - s/p 3% NaCl (50cc), free water flush restrictions - Improving on serial checks -- as of 10/15 in AM, at 125 Sepsis secondary to MRSA PNA - SIRS and SOFA met on admission in presence of elevated PCT, ESR, CRP - Source: Chest CT showing multifocal PNA - sputum, bronch cultures growing MRSA - acid fast, fungal smears NEGATIVE - initial and repeat BCX - NGTD (though pending) - Resp Biofire panel neg - Quantiferon Gold - Indeterminate ; TB antigens negative - ID consulted, reported 10/13: Secondary to MRSA PNA - Transition from linezolid --> clindamycin, continue - D/C Zosyn - With negative AFB smear given multiple negative bronch and sputum samples, unlikely TB - d/c airborne precautions - s/p Azithromycin (atypical coverage) COPD with Exacerbation - in exacerbation due to multifocal PNA - s/p azithromycin - Steroid taper ongoing - end 10/29 - Continue scheduled duonebs - Mucinex, flutter valve and chest PT ongoing ; s/p bronch x 2 - no home oxygen requirement YOON on CKD: resolved - Baseline Cr ~1.0 Alcohol use disorder in remission, cirrhosis: - No indication for AWSS protocol at this time. - no known varices - complication of neuropathy; continue home dose gabapentin PAD - continue home dose statin + aspirin Depression/Anxiety - Hold home dose venlafaxine, remeron and buspar while intubated Rheumatoid arthritis: - Hold MTX in the setting of sepsis secondary to bacterial infection. Chronic pain, Idiopathic Polyneuropathy - Patient may have his at home oxycodone and gabapentin if able to verbalize needs and swallow effectively otherwise IV morphine if n.p.o. DM2: - A1c 6.0 - short acting insulin ordered with carb ratio - carb consistent diet when not NPO - ICU hyperglycemia protocol Hypothyroidism - continue home dose levothyroxine GERD: - PPI while on steroids. CODE STATUS: DNR/DNI FEN: OGT in place, increasing tube feeds 10/15 DVT prophylaxis: Heparin 5000 units SQ every 12 hours Dispo: ICU (2) Acute exacerbation of chronic obstructive pulmonary disease: (3) Respiratory failure: (4) History of alcohol use: (5) Rheumatoid arthritis: (6) Cirrhosis, alcoholic: (7) T2DM (type 2 diabetes mellitus): Admission and Anticipated Discharge Date Admission Date: October 08, 2021 Supervising Physician Co-Signing Physician Notes I also saw the patient and discussed the case with the resident physician. I agree with the impression and plan as noted above. No meaningful HPI review of systems obtainable from patient. ICU input and management appreciated. 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 Review of Systems Review of Systems: as per HPI Physical Exam Physical Exam: General: 60-year old male who is mechanically ventilated. HEENT: NCAT. ETT in place. - Neck - supple, no appreciable JVD Cardiac: Tachycardic with regular rhythm; S1 and S2 present with no murmurs, rubs, or gallops. Pulmonary: Mechanically ventilated. Lung sounds are coarse and rhonchi are noted throughout, L>R Abdominal: Abdomen was soft, nondistended Extremities: Upper and lower extremities are warm and well perfused. Capillary refill < 2 seconds. Results & Data Results & Data ([facility]) Vital Signs (Past 12 Hours) Vital Signs Temp Pulse Pulse Resp BP Pulse Ox 10/15/21 04:03 36.3 C L 81 28 H 86/54 L 92 10/15/21 04:00 36.3 C L 82 28 H 80/54 L 92 10/15/21 03:40 86 28 H 97 10/15/21 03:00 36.2 C L 90 17 88 L 10/15/21 02:32 36.2 C L 85 29 H 89/61 L 92 10/15/21 02:30 36.2 C L 86 29 H 76/56 L 92 10/15/21 02:00 36.2 C L 84 28 H 93/58 L 93 10/15/21 01:00 36.3 C L 83 28 H 95 10/15/21 00:57 71 24 129/76 100 10/15/21 00:43 80 28 H 92 10/15/21 00:00 36.6 C 81 28 H 88/57 L 92 10/14/21 23:45 80 29 H 93 10/14/21 23:00 36.7 C 77 23 86 L 10/14/21 22:00 36.7 C 87 28 H 98/65 L 92 10/14/21 21:00 36.6 C 85 30 H 93 10/14/21 20:00 36.7 C 88 24 82/55 L 95 10/14/21 19:34 85 85 28 H 91 10/14/21 19:00 36.7 C 91 H 24 90 Resident Activity Tracking Resident Involvement: Resident Care Provided Care Provided: Adult Hospital Medicine (1) Respiratory failure Chronicity: acute Respiratory failure complication: hypoxia Qualified Code(s): J96.01 - Acute respiratory failure with hypoxia (2) Pneumonia Laterality: left Lung location: upper lobe of lung Pneumonia type: due to unspecified organism Qualified Code(s): J18.9 - Pneumonia, unspecified organism
--- NOTE | 2021-10-15 07:37 | XRay Report ---
XR chest 1V portable CLINICAL HISTORY: f/u COMPARISON STUDY: Chest radiograph October 14, 2021. FINDINGS: Endotracheal tube is satisfactorily positioned. Tip of nasogastric tube is below the lower aspect of this image but at least within the proximal stomach. Right internal jugular central line re jeremy in place. There is no pneumothorax. There are small bilateral pleural effusions. Severe emphyse ma is present. Dense left upper lobe consolidation persists. Bibasilar airspace opacities are again n oted. IMPRESSION: 1. Satisfactory positioning of lines and tubes. 2. No significant change in multifocal pneumonia. 3. Severe emphysema. ACT 112: Negative or not required by law. Electronically signed by: Sergei Beckwith M.D. 10/15/2021 7:36 AM
[2021-10-15] MEDS: ASPIRIN 81 MG ECTAB PO SCH (09:00)
[2021-10-15] MEDS: SENNA 8.6 MG TAB PO SCH ×2 (09:01→20:31)
[2021-10-15] MEDS: DOCUSATE SODIUM/SENNA 50/8.6MG TAB PO SCH (09:01)
[2021-10-15] MEDS: LEVOTHYROXINE SODIUM 25 MCG in SYRINGE 0 ML IV SCH (09:01)
[2021-10-15] MEDS: HEPARIN SOD 5,000 UNIT/0.5 ML VIAL SQ SCH ×2 (09:01→20:32)
[2021-10-15] MEDS: UMECLIDINIUM BROMIDE 62.5MCG/BLISTER 7 PUFFS/INHALER INH SCH (09:02)
[2021-10-15] MEDS: PANTOprazole 40 MG in SYRINGE 0 ML IV SCH (09:02)
[2021-10-15] MEDS: predniSONE 20 MG TAB PO SCH (09:02)
[2021-10-15] MEDS: MULTI VIT W/MINERALS LIQUID 15 ML UDP NG SCH (09:02)
--- NOTE | 2021-10-15 10:00 | Critical Care Progress Note ---
Date of Service October 15, 2021 Assessment & Plan (1) MRSA pneumonia: (2) Pneumonia: Plan: Reason Critically Ill: 60-year-old male with a past medical history of severe bullous emphysema and COPD presenting to the hospital due to acute pneumonia and combined acute on chronic hypoxemic and hypercapnic respiratory failure Neuro - Idiopathic polyneuropathy, chronic pain syndrome, Depression, metabolic encephalopathy CAM ICU: Negative - No focal deficits -restart gabapentin -restart carbamazepine -restart BuSpar -Continue Versed and fentanyl while intubated. Goal RASS of -1. Cardiac - HYPOTENSION, SEPSIS, ELEVATED TROPONIN - SEPSIS secondary from Pneumonia- bacterial presumed -Hypotension: improved, off phenylephrine, vasopressin, attempt to wean Levophed Respiratory - Multifocal Bacterial PNA greatest left upper lobe, COPD bullous emphysema, chronic oxygen therapy, chronic respiratory failure - Acute on chronic respiratory failure secondary to pneumonia- - transition to monotherapy clindamycin -Sputum cultures positive for MRSA. - Respiratory biofire negative - Supplemental oxygen to maintain SPO2 88-92% -Hold steroid inhalers given MRSA pneumonia -transition to 40 mg prednisone -Steroid taper ordered -Status post bronchoscopy 10/11/2021 with aspiration of a left upper lobe mucous plug. - S/P Bronchoscopy 10/13 - Ventilation day 5 GI - No acute needs- HX cirrhosis, GERD -Increase tube feed to goal. - No known Varices RENAL/LYTES - YOON type II Hyponatremia: Improving -Continue trending throughout the day today -Hypokalemia: resolved -Hypomagnesemia: resolved MSK: L4-L5 herniation with radiculopathy ENDO - TYPE II DM, HYPOTHYROID - ICU glycemic protocol- goal < 180mg/dl - Continue Synthroid -TSH within normal limits. HEME - Leukopenia, anemia. RA - leukopenia likely secondary to sepsis - No acute blood loss noted- recent colonoscopy noted hemorrhoids, and rectal polyp - Continue FESO4 tabs MCV normal - - HOLD methotrexate ID -MRSA pneumonia - ESR elevated, but also with history of RA -Blood cultures negative to date -QuantiFERON gold pending. AFB sputum cultures: negative. Staph MRSA seen on sputum cultures. Bronchoscopy performed 10/11 and culture sent. - Zosyn Day 5 days, discontinue today, Azithro: finishing 10/13, Vanco Day 10/07 finsihed 10/12, then 1 day linazolid, transition to IV clindamycin for 14 days total therapy: day 01/11 - ID consult reviewed LINES/IV ACCESS - - PIV -Right IJ placed 10/11/2021 - Right arterial line 10/11/21 DVT PROPHYLAXIS - - HEPARIN 5000 units sub q q12 Patient DNR/DNI in event of cardiac arrest Prognosis guarded. CRITICAL CARE TIME - I have personally spent 35 minutes of critical care time in the direct management of this patient. This is a life/limb threatening event. This includes time spent evaluating patient, direct bedside care, chart review, placing orders, interpretation of diagnostic studies, discussion with consultants, patient, and family members, as well as other required patient management activities. This time is exclusive of all separately billable procedures, and teaching time and separate from and in addition to any other critical care service time. (3) Hypoxemic respiratory failure, chronic: (4) Acute hypotension: (5) Lumbar disc herniation with radiculopathy: (6) Rheumatoid arthritis: (7) Chronic pain syndrome: (8) Hypothyroidism: (9) T2DM (type 2 diabetes mellitus): Admission and Anticipated Discharge Date Admission Date: October 08, 2021 Subjective Decreasing FiO2 requirements slowly Review of Systems Review of Systems: Unobtainable due to endotracheal tube Physical Exam Physical Exam: General: Sedated. nontoxic. Skin: Warm, dry, Head: Atraumatic Ears, nose, mouth and throat: airway obscured by endotracheal tube Cardiovascular: Normal peripheral perfusion Respiratory: Ventilator settings reviewed Gastrointestinal: Non distended Musculoskeletal: No deformity Results & Data Results & Data ([facility]) Vital Signs (Past 12 Hours) Vital Signs Temp Pulse Pulse Resp BP Pulse Ox 10/15/21 07:34 96 H 28 H 93 10/15/21 04:03 36.3 C L 81 28 H 86/54 L 92 10/15/21 04:00 36.3 C L 82 28 H 80/54 L 92 10/15/21 03:40 86 28 H 97 10/15/21 03:00 36.2 C L 90 17 88 L 10/15/21 02:32 36.2 C L 85 29 H 89/61 L 92 10/15/21 02:30 36.2 C L 86 29 H 76/56 L 92 10/15/21 02:00 36.2 C L 84 28 H 93/58 L 93 10/15/21 01:00 36.3 C L 83 28 H 95 10/15/21 00:57 71 24 129/76 100 10/15/21 00:43 80 28 H 92 10/15/21 00:00 36.6 C 81 28 H 88/57 L 92 10/14/21 23:45 80 29 H 93 10/14/21 23:00 36.7 C 77 23 86 L 10/14/21 22:00 36.7 C 87 28 H 98/65 L 92 Critical Care Results & Data Vital Signs (Past 12 Hours) Vital Signs Temp Pulse Pulse Resp BP Pulse Ox 10/15/21 07:34 96 H 28 H 93 10/15/21 04:03 36.3 C L 81 28 H 86/54 L 92 10/15/21 04:00 36.3 C L 82 28 H 80/54 L 92 10/15/21 03:40 86 28 H 97 10/15/21 03:00 36.2 C L 90 17 88 L 10/15/21 02:32 36.2 C L 85 29 H 89/61 L 92 10/15/21 02:30 36.2 C L 86 29 H 76/56 L 92 10/15/21 02:00 36.2 C L 84 28 H 93/58 L 93 10/15/21 01:00 36.3 C L 83 28 H 95 10/15/21 00:57 71 24 129/76 100 10/15/21 00:43 80 28 H 92 10/15/21 00:00 36.6 C 81 28 H 88/57 L 92 10/14/21 23:45 80 29 H 93 10/14/21 23:00 36.7 C 77 23 86 L Lab & Micro Results (Past 24 Hours) RBC 2.92 M/uL (4.7-6.1) L 10/15/21 WBC 17.17 K/uL (4.8-10.8) H 10/15/21 Hgb 9.8 g/dL (14.0-18.0) L 10/15/21 Hct 27.6 % (42-52) L 10/15/21 MCV 94.5 fL (80-100) 10/15/21 MCH 33.6 pg (25-34) 10/15/21 MCHC 35.5 g/dL (32-36) 10/15/21 RDW Standard Deviation 58.2 fL (36.4-46.3) H 10/15/21 RDW Coefficient of Variation 17.0 % (11.5-14.5) H 10/15/21 Plt Count 380 K/uL (130-400) 10/15/21 MPV 10.8 fL (7.4-10.4) H 10/15/21 Neutrophils (%) (Auto) 87.0 % 10/15/21 Lymphocytes (%) (Auto) 6.2 % 10/15/21 Monocytes # (Auto) 0.86 K/uL (0.11-0.59) H 10/15/21 Eosinophils # (Auto) 0.02 K/uL (0-0.5) 10/15/21 Immature Granulocyte % (Auto) 1.6 % 10/15/21 Neutrophils # (Auto) 14.92 K/uL (1.4-6.5) H 10/15/21 Lymphocytes # (Auto) 1.07 K/uL (1.2-3.4) L 10/15/21 Monocytes # (Auto) 0.86 K/uL (0.11-0.59) H 10/15/21 Eosinophils # (Auto) 0.02 K/uL (0-0.5) 10/15/21 Basophils # (Auto) 0.02 K/uL (0-0.2) 10/15/21 Immature Granulocyte # (Auto) 0.28 K/uL (0.00-0.02) H 10/15/21 Na 125 mmol/L (136-145) L 10/15/21 K 3.5 mmol/L (3.5-5.1) 10/15/21 Cl 88 mmol/L (98-107) L 10/15/21 CO2 30 mmol/L (21-32) 10/15/21 Anion Gap 7 (3-11) 10/15/21 BUN 16 mg/dl (6-23) 10/15/21 Creatinine 0.84 mg/dl (0.6-1.4) 10/15/21 Estimated GFR ( Amer) 110.3 ml/min 10/15/21 Estimated GFR (Non-Af Amer) 95.2 ml/min 10/15/21 BUN/Creatinine Ratio 19.0 (10-20) 10/15/21 Glu 169 mg/dl (70-99(Fasting)) H 10/15/21 Ca 7.9 mg/dl (8.5-10.1) L 10/15/21 Phosphorus Level 2.7 mg/dl (2.5-4.9) 10/15/21 Mg 1.9 mg/dl (1.7-2.4) 10/15/21 04:43 10/15/21 Calcium Level 7.9 mg/dl (8.5-10.1) L 10/15/21 04:43 10/15/21 William Test NA 10/15/21 05:02 10/15/21 Microbiology 10/13/21 05:45 Urine Culture - Final Urine,Straight Cath No growth - less than 1,000 colonies/mL. 10/13/21 05:34 Aerobic Blood Culture - Preliminary Blood No growth in Aerobic bottle after 48 hours. Anaerobic Blood Culture - Preliminary No growth in Anaerobic bottle after 48 hours. 10/13/21 05:43 Aerobic Blood Culture - Preliminary Blood No growth in Aerobic bottle after 48 hours. Anaerobic Blood Culture - Preliminary No growth in Anaerobic bottle after 48 hours. 10/08/21 20:05 Aerobic Blood Culture - Final Blood No growth in Aerobic bottle after 5 days. Anaerobic Blood Culture - Final No growth in Anaerobic bottle after 5 days. 10/08/21 20:21 Aerobic Blood Culture - Final Blood No growth in Aerobic bottle after 5 days. Anaerobic Blood Culture - Final No growth in Anaerobic bottle after 5 days. 10/09/21 01:50 Gram Stain - Final Sputum, Expectorated Sputum Culture - Final Staph aureus MRSA Diagnostic Findings (Past 24 Hours) Chest X-Ray 10/15/21 07:00 XR chest 1V portable CLINICAL HISTORY: f/u COMPARISON STUDY: Chest radiograph October 14, 2021. FINDINGS: Endotracheal tube is satisfactorily positioned. Tip of nasogastric tube is below the lower aspect of this image but at least within the proximal stomach. Right internal jugular central line remains in place. There is no pneumothorax. There are small bilateral pleural effusions. Severe emphysema is present. Dense left upper lobe consolidation persists. Bibasilar airspace opacities are again noted. IMPRESSION: 1. Satisfactory positioning of lines and tubes. 2. No significant change in multifocal pneumonia. 3. Severe emphysema. ACT 112: Negative or not required by law. Electronically signed by: Sergei Beckwith M.D. 10/15/2021 7:36 AM I & O Totals 24 Hours 10/14/21 10/15/21 10/16/21 06:59 06:59 06:59 Intake Total 3719.443 / 3719.443 1385.955 / 1385.955 222.300 / 222.300 Output Total 1630 / 1630 2725 / 2725 Balance 2089.443 / 2089.443 -1339.045 / -1339.045 222.300 / 222.300 Cumulative 10/08/21 19:31 thru 10/15/21 07:13 Intake Total 83661.4053 Output Total 79307 Balance 38435.4053 RT Ventilator Mngmt (Last Documented) Ventilator Ordered Settings Ventilator Support Mode Assist Control 10/15/21 07:34 Respiratory Rate 28 10/15/21 07:34 Ventilator Tidal Volume 440 10/15/21 07:34 Setting Minute Ventilation 12.3 10/15/21 07:34 Positive End Expiratory 12 10/15/21 07:34 Pressure Fraction of Inspired Oxygen 50 10/15/21 07:34 Peak Inspiratory Flow 44 10/11/21 15:58 Machine Comment changes made post ABG verbal 10/13/21 04:38 orders by Shola ZAMORA Ventilator - PT Measurements Respiratory Rate 28 Exhaled Tidal Volume 440 Minute Ventilation 12.3 Peak Inspiratory Airway 29 Pressure Plateau Pressure 23 Respiratory Cycle Inspiratory: 1:1.9 Expiratory Ratio Inspiratory Phase Time 0.75 End-Tidal CO2 25 Static Lung Compliance 40.00 Dynamic Lung Compliance 25.88 Normal Static Lung Compliance 47.00 Patient Measurements Comment Decreased FiO2 per SpO2 97%. Coding Level of Care Code Critical Care 1st 30-74 mins Diagnoses MRSA pneumonia J15.212 Pneumonia J18.9 Laterality: left Lung location: upper lobe of lung Pneumonia type: due to unspecified organism Hypoxemic respiratory failure, chronic J96.11 Acute hypotension I95.9 Lumbar disc herniation with radiculopathy M51.16 Rheumatoid arthritis M06.9 Chronic pain syndrome G89.4 Hypothyroidism E03.9 T2DM (type 2 diabetes mellitus) E11.9 (1) Pneumonia Laterality: left Lung location: upper lobe of lung Pneumonia type: due to unspecified organism Qualified Code(s): J18.9 - Pneumonia, unspecified organism
[2021-10-15] MEDS: DOCUSATE SODIUM 100 MG CAP PO SCH (10:33)
[2021-10-15 10:57] LABS: Calcium 8.2 mg/dl (8.5-10.1); Creatinine Clr Calc Pharmacy 95.4 ml/min; Est GFR (African American) 109.8 ml/min; Est GFR (Non-African American) 94.7 ml/min; Potassium 3.2 mmol/L (3.5-5.1)
[2021-10-15] MEDS ORDERED: DESMOPRESSIN ACETATE 2 MCG in SODIUM CHLORIDE 0.9% 50 ML IV ONE (11:30)
[2021-10-15] MEDS: DOCUSATE SODIUM SYRUP 100 MG/10 ML UDC PO SCH ×2 (11:44→20:29)
[2021-10-15] MEDS ORDERED: ALTEPLASE, RECOMBINANT 1 MG/ML 2ML VIAL INSTIL ONE (12:49)
[2021-10-15] MEDS: busPIRone 7.5 MG TAB PO SCH (13:26)
[2021-10-15] MEDS: busPIRone 15 MG TAB PO SCH (13:26)
[2021-10-15] MEDS: VENLAFAXINE HCL 50 MG TAB PO SCH ×2 (13:29→20:32)
[2021-10-15] MEDS: busPIRone 15 MG TAB GT SCH ×2 (14:03→20:30)
[2021-10-15] MEDS: GABAPENTIN 100 MG CAP PO SCH (14:07)
[2021-10-15] MEDS: GABAPENTIN 600 MG TAB PO SCH (14:07)
--- NOTE | 2021-10-15 14:07 | Pharmacy Report ---
Pharmacy Glycemic Short Note 2 - Date of Service October 15, 2021 - Glycemic Short BSG Results (Last 24 hours): 10/14/21 10/14/21 10/15/21 15:55 20:14 00:27 Glucose POC Glucose (other) 112 H 129 H 123 H 10/15/21 10/15/21 10/15/21 04:41 04:43 09:02 Glucose 169 H POC Glucose (other) 174 H 163 H 10/15/21 10/15/21 10:16 11:50 Glucose 174 H POC Glucose (other) 192 H OUTPATIENT ANTIDIABETIC REGIMEN: * N/a * HbA1c = 6.0% (10/09/21) ASSESSMENT: 10/15 * Remains critically ill, intubated/sedated requiring pressor support and receiving IV antibiotics. IV methylpred transitioned to PO prednisone taper today. Titrating tube feeds to goal. * BSGs have remained within goal the last 24h with q4h Novolog. Novolog parameters tightened today to 30/10 given BSGs rising with tube feed titration (BSGs: 174-163-192). May need further tightened this evening once titrated to goal. 10/13 * Remains critically ill in ICU on steroids, pressors, and antibiotics. Pe ptamen 1.5 iggy started yesterday, but currently only ordered as trickle feeds * BSG goal range 140-180 mg/dL for critically ill patient. Two most recent BSG's below goal range. * Will hold all Lantus * OK to use a Novolog goal range of 110-140 mg/dL in the *order* as this will provide "basal" insulin for any BSG 140-180 mg/dL, but will be held if BSG is below goal 10/12 * Patient continued on insulin drip this AM, BSGs now falling lower 100s, on recheck 114 mg/dL - instructed RN to hold insulin drip for now * Dextrose fluids discontinued this AM, possibly contributing to higher BSGs yesterday evening/overnight * Orders in for TF @10ml/hr - no titration parameters. Plan to use novolog q4 hr checks for coverage * Will add conservative scale for Lantus BID 0-5 units based upon BSG value 10/11 * Pt's condition worsened early yesterday AM and he was subsequently intubated. Pt underwent bronchoscopy yesterday. * Pt is currently receiving IV SoluMedrol 40mg IV daily. * He is receiving pressure support with norepinephrine, phenylephrine, and vasopressin. * Pt was placed on IVF containing dextrose. He continues to receive broad- spectrum antibiotics * Last evening, pt became significantly hyperglycemic (BSG 349mg/dL). As a result, IV insulin infusion was initiated. * Started conservatively, in the setting of recent hypoglycemia. PLAN FOR INPATIENT GLYCEMIC CONTROL: * Basal - hold Lantus * Novolog Q4 hr with tubefeeds * Goal range 110-140 mg/dL * Correction factor: 30 mg/dL/unit * Carb ratio: 10 g CHO/unit
[2021-10-15] MEDS: GABAPENTIN 250 MG/5 ML 470 ML BTL GT SCH ×3 (14:22→20:39)
[2021-10-15] MEDS: MIDAZOLAM BOLUS FROM BAG IV PRN (20:00)
[2021-10-15] MEDS: ROSUVASTATIN CALCIUM 5 MG TAB PO SCH (20:30)
[2021-10-15] MEDS: carBAMazepine 100 MG CHEW TAB PO SCH (20:31)
[2021-10-15] MEDS ORDERED: DOCUSATE SODIUM SYRUP 100 MG/10 ML UDC PO SCH (21:00)
--- NOTE | 2021-10-15 21:06 | Procedure Note ---
Procedure Note Date of Service October 13, 2021 Note Procedure date: Noted above Procedure: fiberoptic bronchoscopy Pre-procedure indication: Acute hypoxic respiratory failure, high peak pressures, concern for mucous plugging Post-procedure Diagnosis: same as above Prior to Procedure: Informed Consent: Emergent consent implied Attending Staff: Mukund Combs DO Resident/APC: Not applicable Skin Prep: Not applicable Anesthesia: Continuous infusion The identity of the patient was confirmed and a bedside time out was performed. Description of Procedure: Fiberoptic bronchoscopy was performed via endotracheal tube. Bronchioalveolar lavage bilateral lung liu was performed. Findings included: Thin white purulent secretions largely in the bilateral lower lobes were suctioned with a total of 100 mL of saline irrigation Complications: None Specimens: None Estimated blood loss: Zero Coding CPT Codes Pulmonary/Thoracic - Pulmonary and Thoracic: 23967 Bronchoscopy, clear airways ([id number]) [facility] [place] Codes (Charges) Pulmonary/Thoracic Procedure 1: Pulmonary and Thoracic: 09568 Bronchoscopy, clear airways
[2021-10-16] MEDS: PEPTAMEN 1.5 CAL 1,000 ML BAG OG SCH ×2 (00:06→22:00)
[2021-10-16] MEDS: INSULIN ASPART PER UNIT SC SCH ×6 (00:19→20:07)
[2021-10-16] MEDS: NOREPINEPHRINE/D5W 8 MG/508 ML BAG IV SCH (00:23)
[2021-10-16] MEDS: ALBUT/IPRATROP 3MG/0.5MG NEB 3 ML VIAL INH SCH ×4 (00:39→19:22)
[2021-10-16] MEDS: TUBE FEEDING WATER FLUSH OG SCH ×3 (01:46→17:33)
[2021-10-16] MEDS: CLINDAMYCIN 600 MG in DEXTROSE 5% 50 ML IV SCH ×3 (01:56→17:32)
[2021-10-16] MEDS: MIDAZOLAM BOLUS FROM BAG IV PRN (04:15)
[2021-10-16 04:45] LABS: iSTAT Art Bld Gas pCO2 Correct 54 mmHg (35-46); iSTAT Art Bld Gas pH Corrected 7.408 (7.35-7.45); iSTAT Arterial Blood Gas HCO3 34 meg/L (19-24); iSTAT Arterial Blood Gas pCO2 53 mmHg (35-46); iSTAT Arterial Blood Gas pH 7.42 (7.35-7.45); iSTAT Arterial Blood Gas pO2 56 mmHg (80-95); iSTAT Arterial Blood Gas pO2 C 58; iSTAT Carbon Dioxide 36 mmol/L (24-31); iSTAT FiO2 35 %; iSTAT Hematocrit 30 % (42-52); iSTAT Hemoglobin 10.2 g/dl (14.0-18.0); iSTAT Potassium 3.5 mmol/L (3.3-5.0); iSTAT Site Art Line; iSTAT Sodium 129 mmol/L (135-144)
[2021-10-16 04:58] LABS: Hematocrit (blood only) 28.4 % (42-52); Hemoglobin 9.3 g/dL (14.0-18.0); Mean Corpuscular Hemoglobin 31.1 pg (25-34); Mean Corpuscular Hgb Conc 32.7 g/dL (32-36); Mean Platelet Volume 10.2 fL (7.4-10.4); Platelet Count 392 K/uL (130-400); RDW Coefficient of Variation 17.4 % (11.5-14.5); RDW Standard Deviation 59.2 fL (36.4-46.3); Red Blood Count 2.99 M/uL (4.7-6.1); White Blood Count 9.93 K/uL (4.8-10.8)
[2021-10-16 05:20] LABS: Basophils # (auto) 0.01 K/uL (0-0.2); Basophils % (auto) 0.1 %; Eosinophils # (auto) 0.01 K/uL (0-0.5); Eosinophils % (auto) 0.1 %; Immature Granulocytes # (auto) 0.12 K/uL (0.00-0.02); Immature Granulocytes % (auto) 1.2 %; Lymphocytes # (auto) 1.54 K/uL (1.2-3.4); Lymphocytes % (auto) 15.5 %; Monocytes # (auto) 0.62 K/uL (0.11-0.59); Monocytes % (auto) 6.2 %; Neutrophils # (auto) 7.63 K/uL (1.4-6.5); Neutrophils % (auto) 76.9 %
[2021-10-16 05:28] LABS: BUN Creatinine Ratio 24.1 (10-20); Calcium 8.1 mg/dl (8.5-10.1); Creatinine Clr Calc Pharmacy 102.7 ml/min; Est GFR (African American) 113.1 ml/min; Est GFR (Non-African American) 97.6 ml/min; Magnesium 1.8 mg/dl (1.7-2.4); Phosphorus 1.6 mg/dl (2.5-4.9); Potassium 3.4 mmol/L (3.5-5.1)
[2021-10-16] MEDS: LEVOTHYROXINE SODIUM 25 MCG TABLET GT SCH (05:30)
--- NOTE | 2021-10-16 06:20 | Hospitalist Progress Note ---
Date of Service October 16, 2021 Assessment & Plan (1) Pneumonia: Plan: 60-year-old male past medical history significant for severe bullous emphysema, COPD, and RA on MTX presenting to the hospital due to acute on chronic hypoxemic and hypercapnic respiratory failure. The cause of his acute decompensation is thought to be a multifocal community-acquired PNA and subsequent COPD exacerbation. He was admitted directly to the ICU for vasoactive medication management. Ventilatory-Dependent Respiratory Failure (Acute on chronic hypoxemic and hypercapnic respiratory failure) - secondary to multifocal PNA + acute exacerbation of COPD - MRSA+ from sputum culture - Progressive improvements noted on ABG 10/15 following bronch#2 and transition to clindamycin - s/p bronchoscopy 10/11 + 10/14 with aspiration of L upper lobe mucous plug --> bronch again today - Continue Versed and Fentanyl while intubated - SpO2 goal 88-92% Hypotension - Multifactorial - sedation + sepsis - Currently requiring only NE -- vasopressin, phenylephrine discontinued - Continue prednisone taper (random cortisol normal) - Maintain MAP > 65 Hyponatremia - Appears clinically euvolemic on exam - Initially downtrending Na to ~118 through the AM of 10/14 - sOsm low, uOsm high - suggestive of SIADH - suspect secondary to critical illness/PNA and linezolid - Improving on serial checks -- now >129 and autocorrecting Sepsis secondary to MRSA PNA - SIRS and SOFA met on admission in presence of elevated PCT, ESR, CRP - Source: Chest CT showing multifocal PNA - sputum, bronch cultures growing MRSA - acid fast, fungal smears NEGATIVE - initial and repeat BCX - NGTD (though pending) - Resp Biofire panel neg - Quantiferon Gold - Indeterminate ; TB antigens negative - ID consulted, reported 10/13: Secondary to MRSA PNA - Transition from linezolid --> clindamycin x 14 days (end 10/27) - With negative AFB smear given multiple negative bronch and sputum samples, unlikely TB - d/c airborne precautions - s/p Azithromycin (atypical coverage) COPD with Exacerbation - in exacerbation due to multifocal PNA - s/p azithromycin - Steroid taper ongoing - end 10/29 - Continue scheduled duonebs - Mucinex, flutter valve and chest PT ongoing ; s/p bronch x 2 - no home oxygen requirement YOON on CKD: resolved - Baseline Cr ~1.0 Alcohol use disorder in remission, cirrhosis: - No indication for AWSS protocol at this time. - no known varices - complication of neuropathy; continue home dose gabapentin PAD - continue home dose statin + aspirin Depression/Anxiety - Resumed venlafaxine, buspirone while intubated Rheumatoid arthritis: - Hold MTX in the setting of sepsis secondary to bacterial infection. Chronic pain, Idiopathic Polyneuropathy - Resumed gabapentin, carbamazepine - Hold home opioid DM2: - A1c 6.0 - short acting insulin ordered with carb ratio - carb consistent diet when not NPO - ICU hyperglycemia protocol Hypothyroidism - continue home dose levothyroxine GERD: - PPI while on steroids. CODE STATUS: DNR/DNI FEN: OGT in place, increasing tube feeds 10/15 DVT prophylaxis: Heparin 5000 units SQ every 12 hours Dispo: ICU (2) Acute exacerbation of chronic obstructive pulmonary disease: (3) Respiratory failure: (4) History of alcohol use: (5) Rheumatoid arthritis: (6) Cirrhosis, alcoholic: (7) T2DM (type 2 diabetes mellitus): Admission and Anticipated Discharge Date Admission Date: October 08, 2021 Supervising Physician Co-Signing Physician Notes I also saw the patient and discussed the case with the resident physician. I agree with the impression and plan as noted above. No meaningful HPI review of systems obtainable from patient. ICU input and management appreciated. Blood pressure is borderline, remains on Levophed. FiO2 down to 40%, maintaining adequate oxygenation. Now on clindamycin, linezolid discontinued Serum sodium is improving Acute on chronic hypoxic respiratory failure secondary to multifocal MRSA pneumonia Oxygen dependent COPD Sepsis Appreciate manager online care, will continue to follow Subjective No meaningful history obtained given sedated and intubated status. Review of Systems Review of Systems: as per HPI Physical Exam Physical Exam: General: 60-year old male who is mechanically ventilated. HEENT: NCAT. ETT in place. - Neck - supple, no appreciable JVD Cardiac: Normal rate with regular rhythm; S1 and S2 present with no murmurs, rubs, or gallops. Pulmonary: Mechanically ventilated. Lung sounds are coarse and rhonchi are noted throughout, L>R Abdominal: Abdomen was soft, mildly distended Extremities: Upper and lower extremities are warm and well perfused. Capillary refill < 2 seconds. Results & Data Results & Data ([facility]) Vital Signs (Past 12 Hours) Vital Signs Temp Pulse Pulse Resp Pulse Ox 10/16/21 05:45 37.4 C 95 H 25 H 99 10/16/21 05:30 37.5 C 92 H 24 99 10/16/21 05:15 37.5 C 91 H 24 100 10/16/21 05:00 37.5 C 94 H 24 99 10/16/21 04:45 37.5 C 99 H 24 99 10/16/21 04:42 28 H 10/16/21 04:30 37.5 C 101 H 24 93 10/16/21 04:15 37.6 C H 103 H 25 H 93 10/16/21 04:00 36.3 C L 108 H 24 92 10/16/21 03:45 36.1 C L 101 H 24 94 10/16/21 03:34 101 H 28 H 95 10/16/21 03:30 37.5 C 100 H 24 97 10/16/21 03:15 37.4 C 102 H 24 97 10/16/21 03:00 37.3 C 99 H 25 H 97 10/16/21 02:45 37.3 C 105 H 24 96 10/16/21 02:30 37.5 C 106 H 23 96 10/16/21 02:15 37.1 C 107 H 25 H 96 10/16/21 02:00 37.1 C 103 H 23 96 10/16/21 01:45 37.3 C 106 H 25 H 95 10/16/21 01:30 37.4 C 102 H 28 H 95 10/16/21 01:15 37.4 C 102 H 28 H 96 10/16/21 01:00 37.5 C 105 H 28 H 94 10/16/21 00:45 37.5 C 109 H 33 H 93 10/16/21 00:41 108 H 28 H 88 L 10/16/21 00:30 37.4 C 100 H 24 93 10/16/21 00:15 37.5 C 108 H 20 89 L 10/16/21 00:00 37.4 C 96 H 25 H 94 10/15/21 23:45 37.4 C 98 H 24 95 10/15/21 23:30 37.4 C 93 H 25 H 96 10/15/21 23:15 37.4 C 93 H 25 H 94 10/15/21 23:04 94 H 10/15/21 23:00 37.4 C 94 H 24 95 10/15/21 22:45 37.4 C 96 H 25 H 98 10/15/21 22:30 37.3 C 95 H 24 94 10/15/21 22:15 37.2 C 89 24 95 10/15/21 22:05 96 H 28 H 95 10/15/21 22:00 37.3 C 94 H 25 H 95 10/15/21 21:45 37.3 C 88 24 93 10/15/21 21:30 37.3 C 83 24 94 10/15/21 21:15 37.2 C 88 25 H 92 10/15/21 21:00 37.2 C 91 H 24 89 L 10/15/21 20:45 37.2 C 83 24 92 10/15/21 20:30 37.2 C 89 24 92 10/15/21 20:15 37.1 C 94 H 28 H 92 10/15/21 20:07 94 H 28 H 99 10/15/21 20:00 37.1 C 100 H 17 97 10/15/21 19:55 92 H 28 H 92 10/15/21 19:45 37.0 C 89 28 H 91 10/15/21 19:30 37.0 C 93 H 28 H 96 10/15/21 19:15 37.0 C 90 28 H 93 10/15/21 19:00 36.9 C 88 28 H 93 Resident Activity Tracking Resident Involvement: Resident Care Provided Care Provided: Adult [facility] Medicine (1) Respiratory failure Chronicity: acute Respiratory failure complication: hypoxia Qualified Code(s): J96.01 - Acute respiratory failure with hypoxia (2) Pneumonia Laterality: left Lung location: upper lobe of lung Pneumonia type: due to unspecified organism Qualified Code(s): J18.9 - Pneumonia, unspecified organism
[2021-10-16] MEDS: fentaNYL citrate 2,500 MCG/250 ML BAG IV SCH (06:21)
[2021-10-16] MEDS ORDERED: POTASSIUM PHOS 3 MMOL/1 ML INFUSION IV STA (07:03)
[2021-10-16] MEDS ORDERED: POTASSIUM CHLORIDE CRTAB 20 MEQ TABCR PO STA (07:03)
[2021-10-16] MEDS ORDERED: POTASSIUM PHOSPHATE 21 MMOL in SODIUM CHLORIDE 0.9% 500 ML IV ONE (07:30)
--- NOTE | 2021-10-16 07:48 | XRay Report ---
XR chest 1V portable HISTORY: 60 years-old Male f/u . Follow-up study in a patient with respiratory failure COMPARISON: Chest radiograph 10/15/2021 TECHNIQUE: Portable AP view of the chest FINDINGS: A right IJ central venous catheter is unchanged with distal tip in the expected location of the mid S VC. An enteric tube courses into the stomach with distal tip outside the field of view. Endotracheal tube appears in satisfactory positioning. No pneumothorax identified. Small pleural effusions redemon strated along with severe emphysema and chronic interstitial coarsening. Persistent left upper lobe c onsolidation with right midlung opacities. Mildly improved aeration of the bibasilar densities. The b ones appear grossly intact. IMPRESSION: 1. Satisfactory positioning of life-support lines and tubes. No pneumothorax. 2. Persistent dense consolidation of the left upper lobe with mildly improved aeration of the lung ba ses. 3. Severe emphysema. ACT 112: Negative or not required by law. The above report was generated using voice recognition software. It may contain grammatical, syntax o r spelling errors. Electronically signed by: Anders Rangel M.D. 10/16/2021 7:46 AM
[2021-10-16] MEDS: GABAPENTIN 250 MG/5 ML 470 ML BTL GT SCH ×4 (07:51→20:02)
[2021-10-16] MEDS: busPIRone 15 MG TAB GT SCH ×3 (07:52→20:03)
[2021-10-16] MEDS: HEPARIN SOD 5,000 UNIT/0.5 ML VIAL SQ SCH ×2 (07:52→22:00)
[2021-10-16] MEDS: MULTI VIT W/MINERALS LIQUID 15 ML UDP NG SCH (07:52)
[2021-10-16] MEDS: PANTOprazole 40 MG in SYRINGE 0 ML IV SCH (07:53)
[2021-10-16] MEDS: ASPIRIN 81 MG ECTAB PO SCH (07:54)
[2021-10-16] MEDS: DOCUSATE SODIUM SYRUP 100 MG/10 ML UDC PO SCH ×2 (07:54→20:04)
[2021-10-16] MEDS: carBAMazepine 100 MG CHEW TAB PO SCH ×2 (07:55→20:03)
[2021-10-16] MEDS: predniSONE 20 MG TAB PO SCH (07:56)
[2021-10-16] MEDS: UMECLIDINIUM BROMIDE 62.5MCG/BLISTER 7 PUFFS/INHALER INH SCH (07:58)
[2021-10-16] MEDS: VENLAFAXINE HCL 50 MG TAB PO SCH ×3 (07:59→20:03)
[2021-10-16] MEDS: SENNA 8.6 MG TAB PO SCH (08:57)
--- NOTE | 2021-10-16 09:47 | Critical Care Progress Note ---
Date of Service October 16, 2021 Assessment & Plan (1) MRSA pneumonia: (2) Pneumonia: Plan: Reason Critically Ill: 60-year-old male with a past medical history of severe bullous emphysema and COPD presenting to the hospital due to acute pneumonia and combined acute on chronic hypoxemic and hypercapnic respiratory failure Neuro - Idiopathic polyneuropathy, chronic pain syndrome, Depression, metabolic encephalopathy CAM ICU: Negative - No focal deficits -Continue gabapentin -Continue carbamazepine -Continue BuSpar -Continue Versed and fentanyl while intubated. Goal RASS of -1. Cardiac - HYPOTENSION, SEPSIS, ELEVATED TROPONIN - SEPSIS secondary from Pneumonia- bacterial presumed -Hypotension: improved, off phenylephrine, vasopressin, attempt to wean Levophed Respiratory - Multifocal Bacterial PNA greatest left upper lobe, COPD bullous emphysema, chronic oxygen therapy, chronic respiratory failure - Acute on chronic respiratory failure secondary to pneumonia- - transition to monotherapy clindamycin -Sputum cultures positive for MRSA. - Respiratory biofire negative - Supplemental oxygen to maintain SPO2 88-92% -Hold steroid inhalers given MRSA pneumonia -transition to 40 mg prednisone -Steroid taper ordered -Status post bronchoscopy 10/11/2021 with aspiration of a left upper lobe mucous plug. - S/P Bronchoscopy 10/13 - Plan to bronch today to reclear therapy - Ventilation day 6 GI - No acute needs- HX cirrhosis, GERD -Tolerating tube feed. - No known Varices RENAL/LYTES - YOON type II Hyponatremia: Improving - auto-correcting -Hypokalemia: repletion -Hypomagnesemia: resolved MSK: L4-L5 herniation with radiculopathy ENDO - TYPE II DM, HYPOTHYROID - ICU glycemic protocol- goal < 180mg/dl - Continue Synthroid -TSH within normal limits. HEME - Leukopenia, anemia. RA - leukopenia likely secondary to sepsis - No acute blood loss noted- recent colonoscopy noted hemorrhoids, and rectal polyp - Continue FESO4 tabs MCV normal - - HOLD methotrexate ID -MRSA pneumonia - ESR elevated, but also with history of RA -Blood cultures negative to date -QuantiFERON gold pending. AFB sputum cultures: negative. Staph MRSA seen on sputum cultures. Bronchoscopy performed 10/11 and culture sent. - Zosyn Day 5 days, discontinue today, Azithro: finishing 10/13, Vanco Day 10/07 finsihed 10/12, then 1 day linazolid, transition to IV clindamycin for 14 days total effective therapy -Based on sensitivities the vancomycin may not of been effective so we will consider effective therapy starting from the lip daily of linezolid, day 09/11 effective therapy. LINES/IV ACCESS - - PIV -Right IJ placed 10/11/2021 - Right arterial line 10/11/21 DVT PROPHYLAXIS - - HEPARIN 5000 units sub q q12 Patient DNR/DNI in event of cardiac arrest Prognosis guarded. CRITICAL CARE TIME - I have personally spent 35 minutes of critical care time in the direct management of this patient. This is a life/limb threatening event. This includes time spent evaluating patient, direct bedside care, chart review, placing orders, interpretation of diagnostic studies, discussion with consultants, patient, and family members, as well as other required patient management activities. This time is exclusive of all separately billable procedures, and teaching time and separate from and in addition to any other critical care service time. (3) Hypoxemic respiratory failure, chronic: (4) Acute hypotension: (5) Lumbar disc herniation with radiculopathy: (6) Rheumatoid arthritis: (7) Chronic pain syndrome: (8) Hypothyroidism: (9) T2DM (type 2 diabetes mellitus): Admission and Anticipated Discharge Date Admission Date: October 08, 2021 Subjective ild increase in FiO2 overnight, thick secretions Physical Exam Physical Exam: General: Sedated. nontoxic. Skin: Warm, dry, Head: Atraumatic Ears, nose, mouth and throat: airway obscured by endotracheal tube Cardiovascular: Normal peripheral perfusion Respiratory: Ventilator settings reviewed Gastrointestinal: Non distended Musculoskeletal: No deformity Results & Data Results & Data ([facility]) Vital Signs (Past 12 Hours) Vital Signs Temp Pulse Pulse Resp Pulse Ox 10/16/21 08:30 37.5 C 107 H 28 H 91 10/16/21 08:15 37.5 C 100 H 28 H 93 10/16/21 08:00 37.5 C 98 H 28 H 94 10/16/21 07:47 105 H 28 H 96 10/16/21 07:45 37.5 C 103 H 28 H 94 10/16/21 07:30 37.5 C 96 H 25 H 92 10/16/21 07:15 37.5 C 93 H 24 96 10/16/21 07:00 37.5 C 96 H 24 97 10/16/21 06:30 37.4 C 97 H 24 98 10/16/21 06:15 37.5 C 95 H 24 98 10/16/21 06:00 37.5 C 94 H 24 98 10/16/21 05:45 37.4 C 95 H 25 H 99 10/16/21 05:30 37.5 C 92 H 24 99 10/16/21 05:15 37.5 C 91 H 24 100 10/16/21 05:00 37.5 C 94 H 24 99 10/16/21 04:45 37.5 C 99 H 24 99 10/16/21 04:42 28 H 10/16/21 04:30 37.5 C 101 H 24 93 10/16/21 04:15 37.6 C H 103 H 25 H 93 10/16/21 04:00 36.3 C L 108 H 24 92 10/16/21 03:45 36.1 C L 101 H 24 94 10/16/21 03:34 101 H 28 H 95 10/16/21 03:30 37.5 C 100 H 24 97 10/16/21 03:15 37.4 C 102 H 24 97 10/16/21 03:00 37.3 C 99 H 25 H 97 10/16/21 02:45 37.3 C 105 H 24 96 10/16/21 02:30 37.5 C 106 H 23 96 10/16/21 02:15 37.1 C 107 H 25 H 96 10/16/21 02:00 37.1 C 103 H 23 96 10/16/21 01:45 37.3 C 106 H 25 H 95 10/16/21 01:30 37.4 C 102 H 28 H 95 10/16/21 01:15 37.4 C 102 H 28 H 96 10/16/21 01:00 37.5 C 105 H 28 H 94 10/16/21 00:45 37.5 C 109 H 33 H 93 10/16/21 00:41 108 H 28 H 88 L 10/16/21 00:30 37.4 C 100 H 24 93 10/16/21 00:15 37.5 C 108 H 20 89 L 10/16/21 00:00 37.4 C 96 H 25 H 94 10/15/21 23:45 37.4 C 98 H 24 95 10/15/21 23:30 37.4 C 93 H 25 H 96 10/15/21 23:15 37.4 C 93 H 25 H 94 10/15/21 23:04 94 H 10/15/21 23:00 37.4 C 94 H 24 95 10/15/21 22:45 37.4 C 96 H 25 H 98 10/15/21 22:30 37.3 C 95 H 24 94 10/15/21 22:15 37.2 C 89 24 95 10/15/21 22:05 96 H 28 H 95 10/15/21 22:00 37.3 C 94 H 25 H 95 Critical Care Results & Data Vital Signs (Past 12 Hours) Vital Signs Temp Pulse Pulse Resp Pulse Ox 10/16/21 08:30 37.5 C 107 H 28 H 91 10/16/21 08:15 37.5 C 100 H 28 H 93 10/16/21 08:00 37.5 C 98 H 28 H 94 10/16/21 07:47 105 H 28 H 96 10/16/21 07:45 37.5 C 103 H 28 H 94 10/16/21 07:30 37.5 C 96 H 25 H 92 10/16/21 07:15 37.5 C 93 H 24 96 10/16/21 07:00 37.5 C 96 H 24 97 10/16/21 06:30 37.4 C 97 H 24 98 10/16/21 06:15 37.5 C 95 H 24 98 10/16/21 06:00 37.5 C 94 H 24 98 10/16/21 05:45 37.4 C 95 H 25 H 99 10/16/21 05:30 37.5 C 92 H 24 99 10/16/21 05:15 37.5 C 91 H 24 100 10/16/21 05:00 37.5 C 94 H 24 99 10/16/21 04:45 37.5 C 99 H 24 99 10/16/21 04:42 28 H 10/16/21 04:30 37.5 C 101 H 24 93 10/16/21 04:15 37.6 C H 103 H 25 H 93 10/16/21 04:00 36.3 C L 108 H 24 92 10/16/21 03:45 36.1 C L 101 H 24 94 10/16/21 03:34 101 H 28 H 95 10/16/21 03:30 37.5 C 100 H 24 97 10/16/21 03:15 37.4 C 102 H 24 97 10/16/21 03:00 37.3 C 99 H 25 H 97 10/16/21 02:45 37.3 C 105 H 24 96 10/16/21 02:30 37.5 C 106 H 23 96 10/16/21 02:15 37.1 C 107 H 25 H 96 10/16/21 02:00 37.1 C 103 H 23 96 10/16/21 01:45 37.3 C 106 H 25 H 95 10/16/21 01:30 37.4 C 102 H 28 H 95 10/16/21 01:15 37.4 C 102 H 28 H 96 10/16/21 01:00 37.5 C 105 H 28 H 94 10/16/21 00:45 37.5 C 109 H 33 H 93 10/16/21 00:41 108 H 28 H 88 L 10/16/21 00:30 37.4 C 100 H 24 93 10/16/21 00:15 37.5 C 108 H 20 89 L 10/16/21 00:00 37.4 C 96 H 25 H 94 10/15/21 23:45 37.4 C 98 H 24 95 10/15/21 23:30 37.4 C 93 H 25 H 96 10/15/21 23:15 37.4 C 93 H 25 H 94 10/15/21 23:04 94 H 10/15/21 23:00 37.4 C 94 H 24 95 10/15/21 22:45 37.4 C 96 H 25 H 98 10/15/21 22:30 37.3 C 95 H 24 94 10/15/21 22:15 37.2 C 89 24 95 10/15/21 22:05 96 H 28 H 95 10/15/21 22:00 37.3 C 94 H 25 H 95 Lab & Micro Results (Past 24 Hours) RBC 2.99 M/uL (4.7-6.1) L 10/16/21 WBC 9.93 K/uL (4.8-10.8) 10/16/21 Hgb 9.3 g/dL (14.0-18.0) L 10/16/21 Hct 28.4 % (42-52) L 10/16/21 MCV 95.0 fL (80-100) 10/16/21 MCH 31.1 pg (25-34) 10/16/21 MCHC 32.7 g/dL (32-36) 10/16/21 RDW Standard Deviation 59.2 fL (36.4-46.3) H 10/16/21 RDW Coefficient of Variation 17.4 % (11.5-14.5) H 10/16/21 Plt Count 392 K/uL (130-400) 10/16/21 MPV 10.2 fL (7.4-10.4) 10/16/21 Neutrophils (%) (Auto) 76.9 % 10/16/21 Lymphocytes (%) (Auto) 15.5 % 10/16/21 Monocytes # (Auto) 0.62 K/uL (0.11-0.59) H 10/16/21 Eosinophils # (Auto) 0.01 K/uL (0-0.5) 10/16/21 Immature Granulocyte % (Auto) 1.2 % 10/16/21 Neutrophils # (Auto) 7.63 K/uL (1.4-6.5) H 10/16/21 Lymphocytes # (Auto) 1.54 K/uL (1.2-3.4) 10/16/21 Monocytes # (Auto) 0.62 K/uL (0.11-0.59) H 10/16/21 Eosinophils # (Auto) 0.01 K/uL (0-0.5) 10/16/21 Basophils # (Auto) 0.01 K/uL (0-0.2) 10/16/21 Immature Granulocyte # (Auto) 0.12 K/uL (0.00-0.02) H 10/16/21 Na 130 mmol/L (136-145) L 10/16/21 K 3.4 mmol/L (3.5-5.1) L 10/16/21 Cl 92 mmol/L (98-107) L 10/16/21 CO2 33 mmol/L (21-32) H 10/16/21 Anion Gap 5 (3-11) 10/16/21 BUN 19 mg/dl (6-23) 10/16/21 Creatinine 0.79 mg/dl (0.6-1.4) 10/16/21 Estimated GFR ( Amer) 113.1 ml/min 10/16/21 Estimated GFR (Non-Af Amer) 97.6 ml/min 10/16/21 BUN/Creatinine Ratio 24.1 (10-20) H 10/16/21 Glu 138 mg/dl (70-99(Fasting)) H 10/16/21 Ca 8.1 mg/dl (8.5-10.1) L 10/16/21 Phosphorus Level 1.6 mg/dl (2.5-4.9) L 10/16/21 Mg 1.8 mg/dl (1.7-2.4) 10/16/21 04:31 10/16/21 Calcium Level 8.1 mg/dl (8.5-10.1) L 10/16/21 04:31 10/16/21 William Test NA 10/16/21 04:29 10/16/21 Microbiology 10/13/21 05:45 Urine Culture - Final Urine,Straight Cath No growth - less than 1,000 colonies/mL. 10/13/21 05:34 Aerobic Blood Culture - Preliminary Blood No growth in Aerobic bottle after 48 hours. Anaerobic Blood Culture - Preliminary No growth in Anaerobic bottle after 48 hours. 10/13/21 05:43 Aerobic Blood Culture - Preliminary Blood No growth in Aerobic bottle after 48 hours. Anaerobic Blood Culture - Preliminary No growth in Anaerobic bottle after 48 hours. Diagnostic Findings (Past 24 Hours) Chest X-Ray 10/16/21 07:00 XR chest 1V portable HISTORY: 60 years-old Male f/u . Follow-up study in a patient with respiratory failure COMPARISON: Chest radiograph 10/15/2021 TECHNIQUE: Portable AP view of the chest FINDINGS: A right IJ central venous catheter is unchanged with distal tip in the expected location of the mid SVC. An enteric tube courses into the stomach with distal tip outside the field of view. Endotracheal tube appears in satisfactory positioning. No pneumothorax identified. Small pleural effusions redemonstrated along with severe emphysema and chronic interstitial coarsening. Persistent left upper lobe consolidation with right midlung opacities. Mildly improved aeration of the bibasilar densities. The bones appear grossly intact. IMPRESSION: 1. Satisfactory positioning of life-support lines and tubes. No pneumothorax. 2. Persistent dense consolidation of the left upper lobe with mildly improved aeration of the lung bases. 3. Severe emphysema. ACT 112: Negative or not required by law. The above report was generated using voice recognition software. It may contain grammatical, syntax or spelling errors. Electronically signed by: Anders Rangel M.D. 10/16/2021 7:46 AM I & O Totals 24 Hours 10/15/21 10/16/21 10/17/21 06:59 06:59 06:59 Intake Total 1385.955 / 6224.604 1870.943 / 2173.943 341.366 / 341.366 Output Total 2725 / 2725 1780 / 1780 Balance -1339.045 / -1339.045 273.943 / 393.943 341.366 / 341.366 Cumulative 10/08/21 19:31 thru 10/16/21 09:42 Intake Total 65536.4143 Output Total 29013 Balance 70061.4143 RT Ventilator Mngmt (Last Documented) Ventilator Ordered Settings Ventilator Support Mode Assist Control 10/16/21 07:47 Respiratory Rate 28 10/16/21 08:30 Ventilator Tidal Volume 440 10/16/21 07:47 Setting Minute Ventilation 12.9 10/16/21 07:47 Positive End Expiratory 10 10/16/21 07:47 Pressure Fraction of Inspired Oxygen 0.45 10/16/21 08:15 Peak Inspiratory Flow 44 10/11/21 15:58 Machine Comment increased fio2 post ABG 10/16/21 04:42 Ventilator - PT Measurements Respiratory Rate 28 Exhaled Tidal Volume 440 Minute Ventilation 12.9 Peak Inspiratory Airway 25 Pressure Plateau Pressure 20.1 Respiratory Cycle Inspiratory: 1:2.1 Expiratory Ratio Inspiratory Phase Time 0.70 End-Tidal CO2 25 Static Lung Compliance 43.56 Dynamic Lung Compliance 29.33 Normal Static Lung Compliance 47.00 Patient Measurements Comment Decreased FiO2 per SpO2 97%. Coding Level of Care Code Critical Care 1st 30-74 mins Diagnoses MRSA pneumonia J15.212 Pneumonia J18.9 Laterality: left Lung location: upper lobe of lung Pneumonia type: due to unspecified organism Hypoxemic respiratory failure, chronic J96.11 Acute hypotension I95.9 Lumbar disc herniation with radiculopathy M51.16 Rheumatoid arthritis M06.9 Chronic pain syndrome G89.4 Hypothyroidism E03.9 T2DM (type 2 diabetes mellitus) E11.9 (1) Pneumonia Laterality: left Lung location: upper lobe of lung Pneumonia type: due to unspecified organism Qualified Code(s): J18.9 - Pneumonia, unspecified organism
[2021-10-16] MEDS ORDERED: POLYETHYLENE (MIRALAX) 17 GM PACK PO PRN (10:26)
--- NOTE | 2021-10-16 12:13 | Pharmacy Report ---
Pharmacy Glycemic Short Note 2 - Date of Service October 16, 2021 - Glycemic Short BSG Results (Last 24 hours): 10/15/21 10/15/21 10/15/21 11:50 17:07 20:31 Glucose POC Glucose POC Glucose (other) 192 H 209 H 146 H 10/16/21 10/16/21 10/16/21 00:17 04:25 04:31 Glucose 138 H POC Glucose POC Glucose (other) 133 H 150 H 10/16/21 10/16/21 08:17 11:47 Glucose POC Glucose 123 H 205 H POC Glucose (other) OUTPATIENT ANTIDIABETIC REGIMEN: * N/a * HbA1c = 6.0% (10/09/21) ASSESSMENT: 10/16 * Tubefeeds titrating up. Two recent BSG's below goal. Prednisone 40 mg daily continues, with anticipated next step in taper on 10/18. * Basal insulin still not needed * Novolog regimen tightened last night in response to two BSG's >180 mg/dL. Will loosen CHO ratio now with two more recent BSG's below goal for ICU status patient (140-180 mg/dL). Of note - anticipate that highest BSG's will be around 1200 or 1800 as this is when effects of prednisone will peak. May consider adjusting CHO ratio at certain checks per day if this trend continues * OK to keep goal range in Novolog *order* at 110-140 mg/dL despite actual target goal range 140-180 mg/dL as this provides a bit of "basal" insulin that will be "held" for any BSG < 140 mg/dL 10/15 * Remains critically ill, intubated/sedated requiring pressor support and receiving IV antibiotics. IV methylpred transitioned to PO prednisone taper today. Titrating tube feeds to goal. * BSGs have remained within goal the last 24h with q4h Novolog. Novolog parameters tightened today to /10 given BSGs rising with tube feed titration (BSGs: 174-163-192). May need further tightened this evening once titrated to goal. 10/13 * Remains critically ill in ICU on steroids, pressors, and antibiotics. Peptamen 1.5 iggy started yesterday, but currently only ordered as trickle feeds * BSG goal range 140-180 mg/dL for critically ill patient. Two most recent BSG's below goal range. * Will hold all Lantus * OK to use a Novolog goal range of 110-140 mg/dL in the *order* as this will provide "basal" insulin for any BSG 140-180 mg/dL, but will be held if BSG is below goal PLAN FOR INPATIENT GLYCEMIC CONTROL: * Basal - continue to hold Lantus * Novolog Q4 hr with tubefeeds * Goal range 110-140 mg/dL * Correction factor: 25 mg/dL/unit * Carb ratio: 8 g CHO/unit
--- NOTE | 2021-10-16 15:04 | Procedure Note ---
Procedure Note Date of Service October 16, 2021 Note Procedure date: Noted above Procedure: fiberoptic bronchoscopy Pre-procedure indication: Pulmonary infiltrate, increased peak pressures Post-procedure Diagnosis: same as above Prior to Procedure: Informed Consent: The risks, benefits, indications, potential complications, and alternatives were explained to the patient's and informed consent obtained. Attending Staff: Mukund Combs DO Resident/APC: Not applicable Skin Prep: Not applicable Anesthesia: Continuous infusion The identity of the patient was confirmed and a bedside time out was performed. Description of Procedure: Fiberoptic bronchoscopy was performed via endotracheal tube. Bronchioalveolar lavage of the bilateral lobes was performed. Findings included: White creamy mucoid secretions were suctioned from predominantly the bilateral lower lung liu. A total of 100 mL of saline was used in lavage. Patient tolerated the procedure well Complications: None Specimens: None Estimated blood loss: Zero Coding
[2021-10-16] MEDS: DOCUSATE SODIUM/SENNA 50/8.6MG TAB PO SCH (19:25)
[2021-10-16] MEDS: busPIRone 7.5 MG TAB PO SCH (20:03)
[2021-10-16] MEDS: ROSUVASTATIN CALCIUM 5 MG TAB PO SCH (20:03)
[2021-10-16] MEDS: SENNOSIDES 8.8 MG/5 ML UDC PO SCH (20:03)
[2021-10-17] MEDS: ALBUT/IPRATROP 3MG/0.5MG NEB 3 ML VIAL INH SCH ×4 (00:19→20:27)
[2021-10-17] MEDS: INSULIN ASPART PER UNIT SC SCH ×6 (00:20→20:41)
[2021-10-17] MEDS: NOREPINEPHRINE/D5W 4 MG/250 ML PLCT IV SCH ×2 (00:24→12:21)
[2021-10-17] MEDS: NOREPINEPHRINE/D5W 8 MG/508 ML BAG IV SCH ×2 (00:54→00:55)
[2021-10-17] MEDS: MIDAZOLAM BOLUS FROM BAG IV PRN (02:00)
[2021-10-17] MEDS: TUBE FEEDING WATER FLUSH OG SCH ×3 (02:01→17:40)
[2021-10-17] MEDS: CLINDAMYCIN 600 MG in DEXTROSE 5% 50 ML IV SCH ×3 (02:01→17:39)
[2021-10-17 04:35] LABS: iSTAT Art Bld Gas pCO2 Correct 53 mmHg (35-46); iSTAT Arterial Blood Gas HCO3 34 meg/L (19-24); iSTAT Arterial Blood Gas pCO2 52 mmHg (35-46); iSTAT Arterial Blood Gas pH 7.43 (7.35-7.45); iSTAT Arterial Blood Gas pO2 51 mmHg (80-95); iSTAT Arterial Blood Gas pO2 C 54; iSTAT Carbon Dioxide 36 mmol/L (24-31); iSTAT FiO2 40 %; iSTAT Hematocrit 25 % (42-52); iSTAT Hemoglobin 8.5 g/dl (14.0-18.0); iSTAT Potassium 3.9 mmol/L (3.3-5.0); iSTAT Site Art Line; iSTAT Sodium 132 mmol/L (135-144)
[2021-10-17] MEDS: MIDAZOLAM HCL 125 MG/250 ML BAG IV SCH (04:40)
[2021-10-17 05:30] LABS: Basophils # (auto) 0.02 K/uL (0-0.2); Basophils % (auto) 0.2 %; Eosinophils # (auto) 0.02 K/uL (0-0.5); Eosinophils % (auto) 0.2 %; Hematocrit (blood only) 25.7 % (42-52); Hemoglobin 8.9 g/dL (14.0-18.0); Immature Granulocytes # (auto) 0.42 K/uL (0.00-0.02); Immature Granulocytes % (auto) 4.5 %; Lymphocytes # (auto) 0.95 K/uL (1.2-3.4); Lymphocytes % (auto) 10.2 %; Mean Corpuscular Hemoglobin 33.1 pg (25-34); Mean Corpuscular Hgb Conc 34.6 g/dL (32-36); Mean Corpuscular Volume 95.5 fL (80-100); Mean Platelet Volume 10.2 fL (7.4-10.4); Monocytes # (auto) 1.32 K/uL (0.11-0.59); Monocytes % (auto) 14.1 %; Neutrophils % (auto) 70.8 %; Platelet Count 364 K/uL (130-400); RDW Coefficient of Variation 17.5 % (11.5-14.5); RDW Standard Deviation 59.6 fL (36.4-46.3); Red Blood Count 2.69 M/uL (4.7-6.1); White Blood Count 9.33 K/uL (4.8-10.8)
[2021-10-17 05:42] LABS: BUN Creatinine Ratio 27.1 (10-20); Creatinine Clr Calc Pharmacy 95.4 ml/min; Est GFR (African American) 109.8 ml/min; Est GFR (Non-African American) 94.7 ml/min; Magnesium 1.6 mg/dl (1.7-2.4); Phosphorus 2.1 mg/dl (2.5-4.9)
[2021-10-17] MEDS: LEVOTHYROXINE SODIUM 25 MCG TABLET GT SCH (05:56)
[2021-10-17] MEDS: MAGNESIUM SULFATE / D5W 1 GM/100 ML BAG IV SCH ×2 (07:07→08:54)
--- NOTE | 2021-10-17 07:31 | XRay Report ---
XR chest 1V portable HISTORY: 60 years-old Male Resp failure acute respiratory failure COMPARISON: Chest radiograph 10/16/2021 TECHNIQUE: Portable AP view of the chest FINDINGS: A right IJ central venous catheter is unchanged with distal tip in the expected location of the mid S VC. An enteric tube courses into the stomach with distal tip outside the field of view. Endotracheal tube appears in satisfactory positioning. No pneumothorax identified. Small pleural effusions redemon strated along with severe emphysema and chronic interstitial coarsening. Progressively worsened left upper lobe consolidation with additional unchanged patchy bilateral airspace opacities. The bones jensen ear grossly intact. IMPRESSION: 1. Satisfactory positioning of the life-support lines and tubes. No pneumothorax. 2. Mildly progressed dense consolidation of the left upper lobe with otherwise unchanged additional b ilateral airspace opacities compatible with multifocal pneumonia. 3. Severe emphysema. ACT 112: Negative or not required by law. The above report was generated using voice recognition software. It may contain grammatical, syntax o r spelling errors. Electronically signed by: Anders Rangel M.D. 10/17/2021 7:29 AM
[2021-10-17] MEDS: VENLAFAXINE HCL 50 MG TAB PO SCH ×3 (07:46→20:41)
[2021-10-17] MEDS: GABAPENTIN 250 MG/5 ML 470 ML BTL GT SCH ×4 (07:46→20:44)
[2021-10-17] MEDS: MULTI VIT W/MINERALS LIQUID 15 ML UDP NG SCH (07:48)
[2021-10-17] MEDS: PANTOprazole 40 MG in SYRINGE 0 ML IV SCH (07:48)
[2021-10-17] MEDS: HEPARIN SOD 5,000 UNIT/0.5 ML VIAL SQ SCH ×2 (07:48→20:40)
[2021-10-17] MEDS: predniSONE 20 MG TAB PO SCH (07:50)
[2021-10-17] MEDS: carBAMazepine 100 MG CHEW TAB PO SCH ×2 (07:50→20:39)
[2021-10-17] MEDS: busPIRone 15 MG TAB GT SCH ×3 (07:51→20:40)
[2021-10-17] MEDS: SENNOSIDES 8.8 MG/5 ML UDC PO SCH ×2 (07:52→20:39)
[2021-10-17] MEDS: ASPIRIN 81 MG ECTAB PO SCH (07:53)
[2021-10-17] MEDS: UMECLIDINIUM BROMIDE 62.5MCG/BLISTER 7 PUFFS/INHALER INH SCH (07:53)
[2021-10-17] MEDS: fentaNYL citrate 2,500 MCG/250 ML BAG IV SCH (08:14)
--- NOTE | 2021-10-17 08:49 | Pharmacy Report ---
Pharmacy Glycemic Short Note 2 - Date of Service October 17, 2021 - Glycemic Short BSG Results (Last 24 hours): 10/16/21 10/16/21 10/16/21 11:47 16:16 20:04 Glucose POC Glucose 205 H 166 H POC Glucose (other) 173 H 10/17/21 10/17/21 10/17/21 00:16 04:34 05:09 Glucose 139 H POC Glucose POC Glucose (other) 133 H 128 H OUTPATIENT ANTIDIABETIC REGIMEN: * N/a * HbA1c = 6.0% (10/09/21) ASSESSMENT: 10/17 * Stressors stable. Prednisone starts to taper tomorrow. * BSG's ranged 128-205 mg/dL after dose adjustment yesterday, with only one BSG > 180 mg/dL. * Will keep same regimen for now. May need to adjust tomorrow with steroid taper 10/16 * Tubefeeds titrating up. Two recent BSG's below goal. Prednisone 40 mg daily continues, with anticipated next step in taper on 10/18. * Basal insulin still not needed * Novolog regimen tightened last night in response to two BSG's >180 mg/dL. Will loosen CHO ratio now with two more recent BSG's below goal for ICU status patient (140-180 mg/dL). Of note - anticipate that highest BSG's will be around 1200 or 1800 as this is when effects of prednisone will peak. May consider adjusting CHO ratio at certain checks per day if this trend continues * OK to keep goal range in Novolog *order* at 110-140 mg/dL despite actual target goal range 140-180 mg/dL as this provides a bit of "basal" insulin that will be "held" for any BSG < 140 mg/dL 10/15 * Remains critically ill, intubated/sedated requiring pressor support and receiving IV antibiotics. IV methylpred transitioned to PO prednisone taper today. Titrating tube feeds to goal. * BSGs have remained within goal the last 24h with q4h Novolog. Novolog parameters tightened today to 30/10 given BSGs rising with tube feed titration (BSGs: 174-163-192). May need further tightened this evening once titrated to goal. PLAN FOR INPATIENT GLYCEMIC CONTROL: * Basal - continue to hold Lantus * Novolog Q4 hr with tubefeeds * Goal range 110-140 mg/dL * Correction factor: 25 mg/dL/unit * Carb ratio: 9 g CHO/unit
[2021-10-17] MEDS ORDERED: POTASSIUM PHOS 3 MMOL/1 ML INFUSION IV STA (09:18)
--- NOTE | 2021-10-17 09:19 | Critical Care Progress Note ---
Date of Service October 17, 2021 Assessment & Plan (1) MRSA pneumonia: (2) Pneumonia: Plan: Reason Critically Ill: 60-year-old male with a past medical history of severe bullous emphysema and COPD presenting to the hospital due to acute pneumonia and combined acute on chronic hypoxemic and hypercapnic respiratory failure Neuro - Idiopathic polyneuropathy, chronic pain syndrome, Depression, metabolic encephalopathy CAM ICU: Negative -Continue gabapentin -Continue carbamazepine -Continue BuSpar -Continue Versed and fentanyl while intubated. Goal RASS of -1. Cardiac - HYPOTENSION, SEPSIS, ELEVATED TROPONIN - SEPSIS secondary from Pneumonia- bacterial presumed -Hypotension: improved, off phenylephrine, vasopressin, attempt to wean Levophed Respiratory - Multifocal Bacterial PNA greatest left upper lobe, COPD bullous emphysema, chronic oxygen therapy, chronic respiratory failure - Acute on chronic respiratory failure secondary to pneumonia-improving - transition to monotherapy clindamycin -Sputum cultures positive for MRSA. - Steroid taper ordered -Status post bronchoscopy 10/11/2021 with aspiration of a left upper lobe mucous plug. - S/P Bronchoscopy 10/13 -Status post bronchoscopy 10/16 - Ventilation day 7 GI - No acute needs- HX cirrhosis, GERD -Tolerating tube feed. - No known Varices RENAL/LYTES - YOON type II Hyponatremia: Improving - auto-correcting -Hypokalemia: Resolved -Hypomagnesemia: 2 gram and daily supplement -Hypophosphatemia: 9 mmol K-Phos MSK: L4-L5 herniation with radiculopathy ENDO - TYPE II DM, HYPOTHYROID - ICU glycemic protocol- goal < 180mg/dl - Continue Synthroid -TSH within normal limits. HEME - Leukopenia, anemia. RA - leukopenia likely secondary to sepsis - No acute blood loss noted- recent colonoscopy noted hemorrhoids, and rectal polyp - Continue FESO4 tabs MCV normal - - HOLD methotrexate ID -MRSA pneumonia - ESR elevated, but also with history of RA -Blood cultures negative to date -QuantiFERON gold pending. AFB sputum cultures: negative. Staph MRSA seen on sputum cultures. Bronchoscopy performed 10/11 and culture sent. - Zosyn Day 5 days, discontinue today, Azithro: finishing 10/13, Vanco Day 10/07 finsihed 10/12, then 1 day linazolid, transition to IV clindamycin for 14 days total effective therapy -Based on sensitivities the vancomycin may not of been effective so we will consider effective therapy starting from the lip daily of linezolid, day 10/11 effective therapy. LINES/IV ACCESS - - PIV -Right IJ placed 10/11/2021 - Right arterial line 10/11/21 DVT PROPHYLAXIS - - HEPARIN 5000 units sub q q12 Patient DNR/DNI in event of cardiac arrest Prognosis guarded. CRITICAL CARE TIME - I have personally spent 35 minutes of critical care time in the direct management of this patient. This is a life/limb threatening event. This includes time spent evaluating patient, direct bedside care, chart review, placing orders, interpretation of diagnostic studies, discussion with consultants, patient, and family members, as well as other required patient management activities. This time is exclusive of all separately billable procedures, and teaching time and separate from and in addition to any other critical care service time. (3) Hypoxemic respiratory failure, chronic: (4) Acute hypotension: (5) Lumbar disc herniation with radiculopathy: (6) Rheumatoid arthritis: (7) Chronic pain syndrome: (8) Hypothyroidism: (9) T2DM (type 2 diabetes mellitus): Admission and Anticipated Discharge Date Admission Date: October 08, 2021 Subjective No overnight events, decreased FiO2 requirements Review of Systems Review of Systems: Unobtainable due to endotracheal tube Physical Exam Physical Exam: General: Sedated. nontoxic. Skin: Warm, dry, Head: Atraumatic Ears, nose, mouth and throat: airway obscured by endotracheal tube Cardiovascular: Normal peripheral perfusion Respiratory: Ventilator settings reviewed Gastrointestinal: Non distended Musculoskeletal: No deformity Results & Data Results & Data ([facility]) Vital Signs (Past 12 Hours) Vital Signs Temp Pulse Pulse Resp Pulse Ox 10/17/21 07:35 102 H 28 H 96 10/17/21 04:00 37.6 C H 99 H 28 H 91 10/17/21 03:45 37.6 C H 93 H 28 H 91 10/17/21 03:30 37.6 C H 92 H 28 H 93 10/17/21 03:23 94 H 28 H 92 10/17/21 03:15 37.5 C 94 H 28 H 92 10/17/21 03:00 37.5 C 94 H 28 H 90 10/17/21 02:45 37.5 C 93 H 28 H 92 10/17/21 02:30 37.4 C 96 H 28 H 99 10/17/21 02:15 37.4 C 96 H 28 H 92 10/17/21 02:00 37.4 C 107 H 85 L 10/17/21 01:45 37.4 C 97 H 30 H 90 10/17/21 01:30 37.5 C 92 H 25 H 91 10/17/21 01:15 37.5 C 91 H 24 92 10/17/21 01:00 96 H 25 H 94 10/17/21 00:53 92 H 10/17/21 00:45 104 H 10 L 94 10/17/21 00:30 37.7 C H 93 H 28 H 98 10/17/21 00:24 93 H 28 H 92 10/17/21 00:15 37.7 C H 97 H 28 H 91 10/17/21 00:00 37.7 C H 99 H 28 H 93 10/16/21 23:45 37.7 C H 97 H 28 H 93 10/16/21 23:39 98 H 28 H 94 10/16/21 23:30 37.7 C H 102 H 28 H 94 10/16/21 23:15 37.7 C H 103 H 28 H 94 10/16/21 23:00 37.7 C H 103 H 28 H 94 10/16/21 22:45 37.7 C H 103 H 28 H 95 10/16/21 22:30 37.7 C H 104 H 28 H 95 10/16/21 22:15 37.7 C H 102 H 29 H 94 10/16/21 22:09 101 H 28 H 95 10/16/21 22:00 37.7 C H 101 H 28 H 97 10/16/21 21:45 37.7 C H 104 H 29 H 97 10/16/21 21:30 37.7 C H 105 H 29 H 96 10/16/21 21:15 37.7 C H 105 H 29 H 95 Critical Care Results & Data Vital Signs (Past 12 Hours) Vital Signs Temp Pulse Pulse Resp Pulse Ox 10/17/21 07:35 102 H 28 H 96 10/17/21 04:00 37.6 C H 99 H 28 H 91 10/17/21 03:45 37.6 C H 93 H 28 H 91 10/17/21 03:30 37.6 C H 92 H 28 H 93 10/17/21 03:23 94 H 28 H 92 10/17/21 03:15 37.5 C 94 H 28 H 92 10/17/21 03:00 37.5 C 94 H 28 H 90 10/17/21 02:45 37.5 C 93 H 28 H 92 10/17/21 02:30 37.4 C 96 H 28 H 99 10/17/21 02:15 37.4 C 96 H 28 H 92 10/17/21 02:00 37.4 C 107 H 85 L 10/17/21 01:45 37.4 C 97 H 30 H 90 10/17/21 01:30 37.5 C 92 H 25 H 91 10/17/21 01:15 37.5 C 91 H 24 92 10/17/21 01:00 96 H 25 H 94 10/17/21 00:53 92 H 10/17/21 00:45 104 H 10 L 94 10/17/21 00:30 37.7 C H 93 H 28 H 98 10/17/21 00:24 93 H 28 H 92 10/17/21 00:15 37.7 C H 97 H 28 H 91 10/17/21 00:00 37.7 C H 99 H 28 H 93 10/16/21 23:45 37.7 C H 97 H 28 H 93 10/16/21 23:39 98 H 28 H 94 10/16/21 23:30 37.7 C H 102 H 28 H 94 10/16/21 23:15 37.7 C H 103 H 28 H 94 10/16/21 23:00 37.7 C H 103 H 28 H 94 10/16/21 22:45 37.7 C H 103 H 28 H 95 10/16/21 22:30 37.7 C H 104 H 28 H 95 10/16/21 22:15 37.7 C H 102 H 29 H 94 10/16/21 22:09 101 H 28 H 95 10/16/21 22:00 37.7 C H 101 H 28 H 97 10/16/21 21:45 37.7 C H 104 H 29 H 97 10/16/21 21:30 37.7 C H 105 H 29 H 96 Lab & Micro Results (Past 24 Hours) RBC 2.69 M/uL (4.7-6.1) L 10/17/21 WBC 9.33 K/uL (4.8-10.8) 10/17/21 Hgb 8.9 g/dL (14.0-18.0) L 10/17/21 Hct 25.7 % (42-52) L 10/17/21 MCV 95.5 fL (80-100) 10/17/21 MCH 33.1 pg (25-34) 10/17/21 MCHC 34.6 g/dL (32-36) 10/17/21 RDW Standard Deviation 59.6 fL (36.4-46.3) H 10/17/21 RDW Coefficient of Variation 17.5 % (11.5-14.5) H 10/17/21 Plt Count 364 K/uL (130-400) 10/17/21 MPV 10.2 fL (7.4-10.4) 10/17/21 Neutrophils (%) (Auto) 70.8 % 10/17/21 Lymphocytes (%) (Auto) 10.2 % 10/17/21 Monocytes # (Auto) 1.32 K/uL (0.11-0.59) H 10/17/21 Eosinophils # (Auto) 0.02 K/uL (0-0.5) 10/17/21 Immature Granulocyte % (Auto) 4.5 % 10/17/21 Neutrophils # (Auto) 6.60 K/uL (1.4-6.5) H 10/17/21 Lymphocytes # (Auto) 0.95 K/uL (1.2-3.4) L 10/17/21 Monocytes # (Auto) 1.32 K/uL (0.11-0.59) H 10/17/21 Eosinophils # (Auto) 0.02 K/uL (0-0.5) 10/17/21 Basophils # (Auto) 0.02 K/uL (0-0.2) 10/17/21 Immature Granulocyte # (Auto) 0.42 K/uL (0.00-0.02) H 10/17/21 Na 133 mmol/L (136-145) L 10/17/21 K 4.0 mmol/L (3.5-5.1) 10/17/21 Cl 95 mmol/L (98-107) L 10/17/21 CO2 33 mmol/L (21-32) H 10/17/21 Anion Gap 5 (3-11) 10/17/21 BUN 23 mg/dl (6-23) 10/17/21 Creatinine 0.85 mg/dl (0.6-1.4) 10/17/21 Estimated GFR ( Amer) 109.8 ml/min 10/17/21 Estimated GFR (Non-Af Amer) 94.7 ml/min 10/17/21 BUN/Creatinine Ratio 27.1 (10-20) H 10/17/21 Glu 139 mg/dl (70-99(Fasting)) H 10/17/21 Ca 8.0 mg/dl (8.5-10.1) L 10/17/21 Phosphorus Level 2.1 mg/dl (2.5-4.9) L 10/17/21 Mg 1.6 mg/dl (1.7-2.4) L 10/17/21 05:09 10/17/21 Calcium Level 8.0 mg/dl (8.5-10.1) L 10/17/21 05:09 10/17/21 William Test NA 10/17/21 04:21 10/17/21 Diagnostic Findings (Past 24 Hours) Chest X-Ray 10/17/21 07:00 XR chest 1V portable HISTORY: 60 years-old Male Resp failure acute respiratory failure COMPARISON: Chest radiograph 10/16/2021 TECHNIQUE: Portable AP view of the chest FINDINGS: A right IJ central venous catheter is unchanged with distal tip in the expected location of the mid SVC. An enteric tube courses into the stomach with distal tip outside the field of view. Endotracheal tube appears in satisfactory positioning. No pneumothorax identified. Small pleural effusions redemonstrated along with severe emphysema and chronic interstitial coarsening. Progressively worsened left upper lobe consolidation with additional unchanged patchy bilateral airspace opacities. The bones appear grossly intact. IMPRESSION: 1. Satisfactory positioning of the life-support lines and tubes. No pneumothorax. 2. Mildly progressed dense consolidation of the left upper lobe with otherwise unchanged additional bilateral airspace opacities compatible with multifocal pneumonia. 3. Severe emphysema. ACT 112: Negative or not required by law. The above report was generated using voice recognition software. It may contain grammatical, syntax or spelling errors. Electronically signed by: Anders Rangel M.D. 10/17/2021 7:29 AM I & O Totals 24 Hours 10/16/21 10/17/21 10/18/21 06:59 06:59 06:59 Intake Total 2053.943 / 2173.943 2841.416 / 2841.416 93.501 / 93.501 Output Total 1780 / 1780 1825 / 1825 Balance 273.943 / 179.182 0143.416 / 1016.416 93.501 / 93.501 Cumulative 10/08/21 19:31 thru 10/17/21 08:54 Intake Total 54408.9653 Output Total 85846 Balance 94471.9653 RT Ventilator Mngmt (Last Documented) Ventilator Ordered Settings Ventilator Support Mode Assist Control 10/17/21 07:35 Respiratory Rate 28 10/17/21 07:35 Ventilator Tidal Volume 440 10/17/21 07:35 Setting Minute Ventilation 12.3 10/17/21 07:35 Positive End Expiratory 10 10/17/21 07:35 Pressure Fraction of Inspired Oxygen 0.4 10/17/21 08:00 Peak Inspiratory Flow 44 10/11/21 15:58 Machine Comment peep and fio2 increased post ABG 10/17/21 03:23 Ventilator - PT Measurements Respiratory Rate 28 Exhaled Tidal Volume 442 Minute Ventilation 12.3 Peak Inspiratory Airway 30 Pressure Plateau Pressure 19 Respiratory Cycle Inspiratory: 1:3.3 Expiratory Ratio Inspiratory Phase Time 0.5 End-Tidal CO2 28 Static Lung Compliance 49.11 Dynamic Lung Compliance 22.10 Normal Static Lung Compliance 46.00 Patient Measurements Comment Decreased FiO2 per SpO2 97%. Coding Level of Care Code Critical Care 1st 30-74 mins Diagnoses MRSA pneumonia J15.212 Pneumonia J18.9 Laterality: left Lung location: upper lobe of lung Pneumonia type: due to unspecified organism Hypoxemic respiratory failure, chronic J96.11 Acute hypotension I95.9 Lumbar disc herniation with radiculopathy M51.16 Rheumatoid arthritis M06.9 Chronic pain syndrome G89.4 Hypothyroidism E03.9 T2DM (type 2 diabetes mellitus) E11.9 (1) Pneumonia Laterality: left Lung location: upper lobe of lung Pneumonia type: due to unspecified organism Qualified Code(s): J18.9 - Pneumonia, unspecified organism
[2021-10-17] MEDS ORDERED: POTASSIUM PHOSPHATE 9 MMOL in DEXTROSE 5% 250 ML IV ONE (09:30)
[2021-10-17] MEDS ORDERED: MAGNESIUM SULFATE / D5W 1 GM/100 ML BAG IV SCH (09:30)
[2021-10-17] MEDS: ASPIRIN 81 MG CHEW PO SCH (09:44)
[2021-10-17] MEDS: MAGNESIUM OXIDE 400 MG TAB PO SCH ×2 (09:44→20:39)
[2021-10-17] MEDS: DOCUSATE SODIUM SYRUP 100 MG/10 ML UDC PO SCH ×2 (09:44→20:40)
[2021-10-17] MEDS ORDERED: LACTULOSE SYRUP 30 GM/45 ML UDP PO ONE (09:45)
--- NOTE | 2021-10-17 13:03 | Hospitalist Progress Note ---
Date of Service October 17, 2021 Assessment & Plan (1) Pneumonia: Plan: 60-year-old male past medical history significant for severe bullous emphysema, COPD, and RA on MTX presenting to the hospital due to acute on chronic hypoxemic and hypercapnic respiratory failure. The cause of his acute decompensation is thought to be a multifocal community-acquired PNA and subsequent COPD exacerbation. He was admitted directly to the ICU for vasoactive medication management. Ventilatory-Dependent Respiratory Failure (Acute on chronic hypoxemic and hypercapnic respiratory failure) - secondary to multifocal PNA + acute exacerbation of COPD - MRSA+ from sputum culture - Progressive improvements noted on ABG 10/15 following bronch#2 and transition to clindamycin - s/p bronchoscopy 10/11 + 10/14 and 10/16 with aspiration of L upper lobe mucous plug - Continue Versed and Fentanyl while intubated - SpO2 goal 88-92% Hypotension - Multifactorial - sedation + sepsis - Currently requiring two pressors - Continue prednisone taper (random cortisol normal) - Maintain MAP > 65 Hyponatremia - Appears clinically euvolemic on exam - Initially downtrending Na to ~118 through the AM of 10/14 - sOsm low, uOsm high - suggestive of SIADH - suspect secondary to critical illness/PNA and linezolid - Improving on serial checks -- now at 133 and autocorrecting Sepsis secondary to MRSA PNA - SIRS and SOFA met on admission in presence of elevated PCT, ESR, CRP - Source: Chest CT showing multifocal PNA - sputum, bronch cultures growing MRSA - acid fast, fungal smears NEGATIVE - initial and repeat BCX - NGTD (though pending) - Resp Biofire panel neg - Quantiferon Gold - Indeterminate ; TB antigens negative - ID consulted, reported 10/13: Secondary to MRSA PNA - Transition from linezolid --> clindamycin x 14 days (end 10/27) - With negative AFB smear given multiple negative bronch and sputum samples, unlikely TB - d/c airborne precautions - s/p Azithromycin (atypical coverage) COPD with Exacerbation - in exacerbation due to multifocal PNA - s/p azithromycin - Steroid taper ongoing - end 10/29 - Continue scheduled duonebs - Mucinex, flutter valve and chest PT ongoing ; s/p bronch x 3 - no home oxygen requirement YOON on CKD: resolved - Baseline Cr ~1.0 Alcohol use disorder in remission, cirrhosis: - No indication for AWSS protocol at this time. - no known varices - complication of neuropathy; continue home dose gabapentin PAD - continue home dose statin + aspirin Depression/Anxiety - Resumed venlafaxine, buspirone while intubated Rheumatoid arthritis: - Hold MTX in the setting of sepsis secondary to bacterial infection. Chronic pain, Idiopathic Polyneuropathy - Resumed gabapentin, carbamazepine - Hold home opioid DM2: - A1c 6.0 - short acting insulin ordered with carb ratio - carb consistent diet when not NPO - ICU hyperglycemia protocol Hypothyroidism - continue home dose levothyroxine GERD: - PPI while on steroids. CODE STATUS: DNR/DNI FEN: OGT in place, tolerating tube feeds DVT prophylaxis: Heparin 5000 units SQ every 12 hours Dispo: ICU (2) Acute exacerbation of chronic obstructive pulmonary disease: (3) Respiratory failure: (4) History of alcohol use: (5) Rheumatoid arthritis: (6) Cirrhosis, alcoholic: (7) T2DM (type 2 diabetes mellitus): Admission and Anticipated Discharge Date Admission Date: October 08, 2021 Supervising Physician Co-Signing Physician Notes Patient seen and examined independently of PGY-3 Dr. Sandhu. Agree with history, exam findings, assessment and plan of care as outlined. In brief, Mr. Park is a 60 year old male with hx of severe bullous emphysema, COPD, and RA on methotrexate admitted with acute on chronic hypoxemic and hypercapnic respiratory failure. Intubated. Reviewed nursing notes. Dr. Sandhu was present at ICU rounds. 1. Ventilatory dependent respiratory failureacute on chronic hypoxemic and hypercapnic respiratory failure. Secondary to multifocal pneumonia and acute exacerbation of COPD. MRSA positive. Transitioned to clinda. Bronch on 10/11 and 10/14 with aspiration of L upper lobe mucous plug. Repeat brocnch of 10/16. 2. Hypotension. On norepi. Pred taper. 3. Hyponatremia. SIADH due to critical illness/PNA. Improving. 4. Sepsis secondary to MRSA PNA. CT with multifocal pneumonia, MRSA in bronch cultures. ID consult: transitioned from linezoid to clinda x 14 days. 5. COPD exacerbation. Finished azithro. Steroid taper to end October 29. Dispo: pending clinical improvement Subjective In ICU on vent. Per ICU rounds, he is tolerating tube feeds well. Has no yet passed a BM. Review of Systems Review of Systems: Unobtainable due to endotracheal tube Physical Exam Constitutional: WD/WN, vitals as above + mechanically ventilated Eyes: + anicteric sclerae ENMT: external ear and nose normal, oropharynx normal Neck: normal visual inspection and trachea midline Respiratory: Auscultation: + diminished lung sounds, + rhonchi (L > R) and + wheezes (diffusely ) Cardiovascular: Rate/Rhythm: regular rhythm and + tachycardic Heart Sounds: normal S1 and normal S2 Extremities: + abnormal capillary refill (3 seconds) Gastrointestinal (Abdomen): normal bowel sounds, soft, nontender, no hepatosplenomegaly Inspection/Auscultation: + abdomen distended Musculoskeletal: Head/Neck/Chest: normocephalic and head atraumatic Skin: no rashes, warm and dry Psychiatric: A+Ox3, euthymic affect Results & Data Results & Data ([facility]) Vital Signs (Past 12 Hours) Vital Signs Temp Pulse Pulse Resp Pulse Ox 10/17/21 12:28 87 28 H 98 10/17/21 11:15 37.8 C H 93 H 28 H 88 L 10/17/21 11:00 37.8 C H 90 28 H 96 10/17/21 10:45 37.8 C H 88 28 H 97 10/17/21 10:30 37.8 C H 87 28 H 95 10/17/21 10:15 37.8 C H 90 28 H 95 10/17/21 10:00 37.8 C H 98 H 28 H 97 10/17/21 09:45 37.8 C H 100 H 28 H 96 10/17/21 09:30 37.8 C H 104 H 28 H 97 10/17/21 09:15 37.8 C H 101 H 28 H 96 10/17/21 09:00 37.8 C H 102 H 28 H 95 10/17/21 08:45 37.8 C H 103 H 28 H 93 10/17/21 08:30 37.8 C H 106 H 28 H 95 10/17/21 08:15 37.8 C H 108 H 28 H 93 10/17/21 08:00 37.9 C H 103 H 28 H 95 10/17/21 07:45 37.8 C H 106 H 28 H 99 10/17/21 07:35 102 H 28 H 96 10/17/21 07:30 37.8 C H 99 H 28 H 100 10/17/21 07:15 37.8 C H 102 H 28 H 94 10/17/21 07:00 37.8 C H 105 H 28 H 93 10/17/21 04:00 37.6 C H 99 H 28 H 91 10/17/21 03:45 37.6 C H 93 H 28 H 91 10/17/21 03:30 37.6 C H 92 H 28 H 93 10/17/21 03:23 94 H 28 H 92 10/17/21 03:15 37.5 C 94 H 28 H 92 10/17/21 03:00 37.5 C 94 H 28 H 90 10/17/21 02:45 37.5 C 93 H 28 H 92 10/17/21 02:30 37.4 C 96 H 28 H 99 10/17/21 02:15 37.4 C 96 H 28 H 92 10/17/21 02:00 37.4 C 107 H 85 L 10/17/21 01:45 37.4 C 97 H 30 H 90 10/17/21 01:30 37.5 C 92 H 25 H 91 10/17/21 01:15 37.5 C 91 H 24 92 10/17/21 01:00 96 H 25 H 94 Resident Activity Tracking Resident Involvement: Resident Care Provided Care Provided: Adult Hospital Medicine (1) Respiratory failure Chronicity: acute Respiratory failure complication: hypoxia Qualified Code(s): J96.01 - Acute respiratory failure with hypoxia (2) Pneumonia Laterality: left Lung location: upper lobe of lung Pneumonia type: due to unspecified organism Qualified Code(s): J18.9 - Pneumonia, unspecified organism
[2021-10-17] MEDS: ROSUVASTATIN CALCIUM 5 MG TAB PO SCH (20:39)
[2021-10-17] MEDS: busPIRone 7.5 MG TAB PO SCH (20:41)
[2021-10-17] MEDS: PEPTAMEN 1.5 CAL 1,000 ML BAG OG SCH (22:35)
[2021-10-18] MEDS: INSULIN ASPART PER UNIT SC SCH ×7 (00:31→23:56)
[2021-10-18] MEDS: ALBUT/IPRATROP 3MG/0.5MG NEB 3 ML VIAL INH SCH ×4 (00:52→19:49)
[2021-10-18] MEDS: TUBE FEEDING WATER FLUSH OG SCH ×3 (01:54→17:15)
[2021-10-18] MEDS: CLINDAMYCIN 600 MG in DEXTROSE 5% 50 ML IV SCH ×3 (01:54→17:14)
[2021-10-18 05:30] LABS: iSTAT Art Bld Gas pCO2 Correct 48 mmHg (35-46); iSTAT Art Bld Gas pH Corrected 7.476 (7.35-7.45); iSTAT Arterial Blood Gas HCO3 36 meg/L (19-24); iSTAT Arterial Blood Gas pCO2 49 mmHg (35-46); iSTAT Arterial Blood Gas pH 7.47 (7.35-7.45); iSTAT Arterial Blood Gas pO2 51 mmHg (80-95); iSTAT Arterial Blood Gas pO2 C 50; iSTAT Carbon Dioxide 37 mmol/L (24-31); iSTAT FiO2 35 %; iSTAT Hematocrit 24 % (42-52); iSTAT Hemoglobin 8.2 g/dl (14.0-18.0); iSTAT Potassium 3.3 mmol/L (3.3-5.0); iSTAT Site Art Line; iSTAT Sodium 134 mmol/L (135-144)
[2021-10-18 05:52] LABS: Hematocrit (blood only) 24.5 % (42-52); Hemoglobin 8.2 g/dL (14.0-18.0); Mean Corpuscular Hemoglobin 32.3 pg (25-34); Mean Corpuscular Hgb Conc 33.5 g/dL (32-36); Mean Corpuscular Volume 96.5 fL (80-100); Mean Platelet Volume 9.7 fL (7.4-10.4); Platelet Count 341 K/uL (130-400); RDW Coefficient of Variation 17.4 % (11.5-14.5); RDW Standard Deviation 60.3 fL (36.4-46.3); Red Blood Count 2.54 M/uL (4.7-6.1); White Blood Count 10.59 K/uL (4.8-10.8)
[2021-10-18] MEDS: LEVOTHYROXINE SODIUM 25 MCG TABLET GT SCH (06:05)
[2021-10-18 06:09] LABS: Basophils # (auto) 0.01 K/uL (0-0.2); Basophils % (auto) 0.1 %; Eosinophils # (auto) 0.03 K/uL (0-0.5); Eosinophils % (auto) 0.3 %; Immature Granulocytes # (auto) 0.59 K/uL (0.00-0.02); Immature Granulocytes % (auto) 5.6 %; Lymphocytes # (auto) 0.87 K/uL (1.2-3.4); Lymphocytes % (auto) 8.2 %; Monocytes % (auto) 12.3 %; Neutrophils # (auto) 7.79 K/uL (1.4-6.5); Neutrophils % (auto) 73.5 %
[2021-10-18 06:18] LABS: BUN Creatinine Ratio 24.1 (10-20); Creatinine Clr Calc Pharmacy 91.7 ml/min; Est GFR (African American) 110.8 ml/min; Est GFR (Non-African American) 95.6 ml/min; Phosphorus 3.1 mg/dl (2.5-4.9); Potassium 3.2 mmol/L (3.5-5.1)
[2021-10-18] MEDS ORDERED: POTASSIUM CHLORIDE 20 MEQ/15 ML UDC PO STA (06:26)
[2021-10-18] MEDS: POTASSIUM CHLORIDE / WTR 10 MEQ/100 ML PLCT IV SCH ×2 (06:38→09:07)
--- NOTE | 2021-10-18 07:06 | Hospitalist Progress Note ---
Date of Service October 18, 2021 Assessment & Plan (1) Pneumonia: Plan: 60-year-old male past medical history significant for severe bullous emphysema, COPD, and rheumatoid arthritis on MTX presenting to the hospital due to acute on chronic hypoxemic and hypercapnic respiratory failure. The cause of his acute decompensation is thought to be a multifocal community-acquired PNA and subsequent COPD exacerbation. He was admitted directly to the ICU for vasoactive medication management. Currently on day 10 of his hospital stay. Ventilatory-Dependent Respiratory Failure (Acute on chronic hypoxemic and hypercapnic respiratory failure) - secondary to multifocal PNA + acute exacerbation of COPD - MRSA+ from sputum culture - s/p bronchoscopy 10/11 + 10/14 and 10/16 with aspiration of L upper lobe mucous plug - Continue Versed and Fentanyl while intubated - SpO2 goal 88-92% Hypotension - Multifactorial - sedation + sepsis - Currently requiring only one vasopressor - Continue prednisone taper (random cortisol normal) - Maintain MAP > 65 Hyponatremia - improving - Appears clinically euvolemic on exam - Initially downtrending Na to ~118 through the AM of 10/14 - sOsm low, uOsm high - suggestive of SIADH - suspect secondary to critical illness/PNA and linezolid (has since been d/c) - Improving on serial checks -- now at 135 and autocorrecting Sepsis secondary to MRSA PNA - SIRS and SOFA met on admission in presence of elevated PCT, ESR, CRP - Source: Chest CT showing multifocal PNA - sputum, bronch cultures growing MRSA - acid fast, fungal smears NEGATIVE - initial and repeat BCX - NGTD (though pending) - Resp Biofire panel neg - Quantiferon Gold - Indeterminate ; TB antigens negative - ID consulted, reported 10/13: Secondary to MRSA PNA - Transition from linezolid --> clindamycin x 14 days (end 10/27) - With negative AFB smear given multiple negative bronch and sputum samples, unlikely TB - d/c airborne precautions - s/p Azithromycin (atypical coverage) COPD with Exacerbation - in exacerbation due to multifocal PNA - s/p azithromycin course - Steroid taper ongoing - end 10/29 - Continue scheduled duonebs - Mucinex, flutter valve and chest PT ongoing ; s/p bronch x 3 - no home oxygen requirement YOON on CKD: resolved - Baseline Cr ~1.0 Alcohol use disorder in remission, cirrhosis: - No indication for AWSS protocol at this time. - no known varices - complication of neuropathy; continue home dose gabapentin PAD - continue home dose statin + aspirin Depression/Anxiety - Resumed venlafaxine, buspirone while intubated Rheumatoid arthritis: - Hold MTX in the setting of sepsis secondary to bacterial infection. Chronic pain, Idiopathic Polyneuropathy - Resumed gabapentin, carbamazepine - Hold home opioid DM2: - A1c 6.0 - short acting insulin ordered with carb ratio - carb consistent diet when not NPO - ICU hyperglycemia protocol Hypothyroidism - continue home dose levothyroxine GERD: - PPI while on steroids. CODE STATUS: DNR/DNI FEN: OGT in place, tolerating tube feeds DVT prophylaxis: Heparin 5000 units SQ every 12 hours Dispo: ICU (2) Acute exacerbation of chronic obstructive pulmonary disease: (3) Respiratory failure: (4) History of alcohol use: (5) Rheumatoid arthritis: (6) Cirrhosis, alcoholic: (7) T2DM (type 2 diabetes mellitus): Admission and Anticipated Discharge Date Admission Date: October 08, 2021 Supervising Physician Co-Signing Physician Notes Patient seen and examined with PGY-3 Dr. Sandhu. Agree with history, exam findings, assessment and plan of care as outlined. In brief, Mr. Park is a 60 year old male with hx of severe bullous emphysema, COPD, and RA on methotrexate admitted with acute on chronic hypoxemic and hypercapnic respiratory failure. Intubated. VS and nursing notes reviewed. Intubated, sedated. On pressor. Heart with regular rate and rhythm. Coarse breath sounds throughout with occasional wheeze. Labs and imaging reviewed. 1. Ventilatory dependent respiratory failureacute on chronic hypoxemic and hypercapnic respiratory failure. Secondary to multifocal MRSA pneumonia and acute exacerbation of COPD. Continue clindamycin. Bronch on 10/11 and 10/14 with aspiration of L upper lobe mucous plug. Repeat brocnch on 10/16 to clear secretions/lavage. Possible extubation tomorrow. 2. Hypotension. Secondary to sedation + sepsis. On norepi. Pred taper. MAP> 65. 3. Hyponatremia. SIADH due to critical illness/PNA. Improving. 4. Sepsis secondary to MRSA PNA. CT with multifocal pneumonia, MRSA in bronch cultures. ID consult: transitioned from linezoid to clinda x 14 days (abx end date 10/27) 5. COPD exacerbation. Finished azithro. Steroid taper to end October 29. 6. Rheumatoid arthritis. Holding home methotrexate. 7. DM2. Per ICU protocol. Dispo: pending clinical improvement Subjective In ICU on vent. Per ICU rounds, he is tolerating tube feeds well. He did pass a BM overnight (rectal tube in place) Review of Systems Review of Systems: Unobtainable due to endotracheal tube Physical Exam Constitutional: WD/WN, vitals as above + mechanically ventilated ENMT: external ear and nose normal, oropharynx normal Neck: normal visual inspection and trachea midline Respiratory: Auscultation: + diminished lung sounds, + rhonchi (L > R) and + wheezes (diffusely ) Cardiovascular: Rate/Rhythm: regular rhythm and + tachycardic Heart Sounds: normal S1 and normal S2 Extremities: + abnormal capillary refill (3 seconds) Gastrointestinal (Abdomen): normal bowel sounds, soft, nontender, no hepatosplenomegaly Inspection/Auscultation: + abdomen distended Rectal Tube in place Musculoskeletal: Head/Neck/Chest: normocephalic and head atraumatic Rectal Tube in place Skin: no rashes, warm and dry Neurologic: moves all extremities Psychiatric: A+Ox3, euthymic affect Genitourinary: Pool catheter in place, draining yellow urine without visible blood clots Results & Data Results & Data ([facility]) Vital Signs (Past 12 Hours) Vital Signs Temp Pulse Pulse Resp BP Pulse Ox 10/18/21 06:00 36.8 C 92 H 24 89 L 10/18/21 05:10 91 H 30 H 91 10/18/21 05:00 36.7 C 86 24 95 10/18/21 04:00 36.9 C 87 28 H 109/49 L 90 10/18/21 03:00 36.9 C 91 H 28 H 87 L 10/18/21 02:00 36.9 C 94 H 28 H 91 10/18/21 01:00 36.9 C 90 28 H 92 10/18/21 00:55 93 H 28 H 91 10/18/21 00:00 36.9 C 91 H 28 H 109/49 L 94 10/17/21 23:32 92 H 10/17/21 23:00 37.0 C 93 H 28 H 90 10/17/21 22:30 95 H 28 H 96 10/17/21 22:00 37.2 C 98 H 28 H 95 10/17/21 21:00 37.5 C 102 H 28 H 89 L 10/17/21 20:40 108 H 28 H 98 10/17/21 20:27 108 H 33 H 94 10/17/21 20:00 37.9 C H 105 H 17 120/55 L 98 Resident Activity Tracking Resident Involvement: Resident Care Provided Care Provided: Adult Hospital Medicine (1) Respiratory failure Chronicity: acute Respiratory failure complication: hypoxia Qualified Code(s): J96.01 - Acute respiratory failure with hypoxia (2) Pneumonia Laterality: left Lung location: upper lobe of lung Pneumonia type: due to unspecified organism Qualified Code(s): J18.9 - Pneumonia, unspecified organism
--- NOTE | 2021-10-18 07:20 | XRay Report ---
XR chest 1V portable CLINICAL HISTORY: Respiratory failure. COMPARISON STUDY: Chest radiograph October 17, 2021. FINDINGS: The tip of the endotracheal tube is 5 cm above the darrius. Right internal jugular central l ine remains in place. Tip of nasogastric tube is below the lower aspect of this image but at least wi thin the stomach. Severe emphysema is again noted. Dense left suprahilar consolidation persists. Bila teral lower lung airspace opacities are also noted. Slight improvement is noted since earlier exams. Trace right pleural effusion. No pneumothorax. IMPRESSION: 1. Satisfactory positioning of lines and tubes. 2. Multifocal pneumonia, slightly improved. 3. Emphysema. ACT 112: Negative or not required by law. Electronically signed by: Sergei Beckwith M.D. 10/18/2021 7:19 AM
[2021-10-18] MEDS: NOREPINEPHRINE/D5W 4 MG/250 ML PLCT IV SCH (09:03)
[2021-10-18] MEDS: fentaNYL citrate 2,500 MCG/250 ML BAG IV SCH (09:04)
[2021-10-18] MEDS: HEPARIN SOD 5,000 UNIT/0.5 ML VIAL SQ SCH ×2 (09:09→20:20)
[2021-10-18] MEDS: carBAMazepine 100 MG CHEW TAB PO SCH ×2 (09:09→20:16)
[2021-10-18] MEDS: VENLAFAXINE HCL 50 MG TAB PO SCH ×3 (09:10→20:15)
[2021-10-18] MEDS: MAGNESIUM OXIDE 400 MG TAB PO SCH ×2 (09:11→20:19)
[2021-10-18] MEDS: busPIRone 15 MG TAB GT SCH ×3 (09:11→20:15)
[2021-10-18] MEDS: ASPIRIN 81 MG CHEW PO SCH (09:12)
[2021-10-18] MEDS: predniSONE 10 MG TABLET PO SCH (09:14)
[2021-10-18] MEDS: MULTI VIT W/MINERALS LIQUID 15 ML UDP NG SCH (09:15)
[2021-10-18] MEDS: DOCUSATE SODIUM SYRUP 100 MG/10 ML UDC PO SCH (09:16)
[2021-10-18] MEDS: SENNOSIDES 8.8 MG/5 ML UDC PO SCH (09:17)
[2021-10-18] MEDS: UMECLIDINIUM BROMIDE 62.5MCG/BLISTER 7 PUFFS/INHALER INH SCH (09:17)
[2021-10-18] MEDS: PANTOprazole 40 MG in SYRINGE 0 ML IV SCH (09:17)
[2021-10-18] MEDS: GABAPENTIN 250 MG/5 ML 470 ML BTL GT SCH ×4 (09:18→20:21)
[2021-10-18] MEDS: MIDAZOLAM BOLUS FROM BAG IV PRN (12:49)
--- NOTE | 2021-10-18 13:16 | Critical Care Progress Note ---
Date of Service October 18, 2021 Assessment & Plan (1) MRSA pneumonia: (2) Pneumonia: Plan: Reason Critically Ill: 60-year-old male with a past medical history of severe bullous emphysema and COPD presenting to the hospital due to acute pneumonia and combined acute on chronic hypoxemic and hypercapnic respiratory failure Neuro - Idiopathic polyneuropathy, chronic pain syndrome, Depression, metabolic encephalopathy CAM ICU: Negative -Continue gabapentin -Continue carbamazepine -Continue BuSpar -Continue Versed and fentanyl while intubated. Goal RASS of -1. Cardiac - HYPOTENSION, SEPSIS, ELEVATED TROPONIN - SEPSIS secondary from Pneumonia- bacterial presumed -Hypotension: Resolving, off phenylephrine, vasopressin, off Levophed Respiratory - Multifocal Bacterial PNA greatest left upper lobe, COPD bullous emphysema, chronic oxygen therapy, chronic respiratory failure - Acute on chronic respiratory failure secondary to pneumonia-improving - transition to monotherapy clindamycin -Sputum cultures positive for MRSA. - Steroid taper ordered -Status post bronchoscopy 10/11/2021 with aspiration of a left upper lobe mucous plug. - S/P Bronchoscopy 10/13 -Status post bronchoscopy 10/16 & 10/18 - Ventilation day 8 With significant mucoid impaction at suctioning every hour patient would not be able to cough adequately to clear her airways will consider extubation tomorrow should suctioning requirements decrease -Will likely require higher PEEP I believe he is auto trapping secretions due to significant COPD and excessive dynamic airway collapse GI - No acute needs- HX cirrhosis, GERD -Tolerating tube feed. - No known Varices -Bowel movement today, hold laxatives RENAL/LYTES - YOON type II Hyponatremia: Improving - auto-correcting -Hypokalemia: Supplementation -Hypomagnesemia: Resolved -Hypophosphatemia: Resolved MSK: L4-L5 herniation with radiculopathy ENDO - TYPE II DM, HYPOTHYROID - ICU glycemic protocol- goal < 180mg/dl - Continue Synthroid -TSH within normal limits. HEME - Leukopenia, anemia. RA - leukopenia likely secondary to sepsis - No acute blood loss noted- recent colonoscopy noted hemorrhoids, and rectal polyp - Continue FESO4 tabs MCV normal - - HOLD methotrexate ID -MRSA pneumonia - ESR elevated, but also with history of RA -Blood cultures negative to date -QuantiFERON gold pending. AFB sputum cultures: negative. Staph MRSA seen on sputum cultures. Bronchoscopy performed 10/11 and culture sent. - Zosyn Day 5 days, discontinue today, Azithro: finishing 10/13, Vanco Day 10/07 finsihed 10/12, then 1 day linazolid, transition to IV clindamycin for 14 days total effective therapy -Based on sensitivities the vancomycin may not of been effective so we will consider effective therapy starting from the lip daily of linezolid, day 11/11 effective therapy (stop date ordered) LINES/IV ACCESS - - PIV -Right IJ placed 10/11/2021 - Right arterial line 10/11/21 DVT PROPHYLAXIS - - HEPARIN 5000 units sub q q12 Patient DNR/DNI in event of cardiac arrest Prognosis guarded. CRITICAL CARE TIME - I have personally spent 35 minutes of critical care time in the direct management of this patient. This is a life/limb threatening event. This includes time spent evaluating patient, direct bedside care, chart review, placing orders, interpretation of diagnostic studies, discussion with consultants, patient, and family members, as well as other required patient management activities. This time is exclusive of all separately billable procedures, and teaching time and separate from and in addition to any other critical care service time. (3) Hypoxemic respiratory failure, chronic: (4) Acute hypotension: (5) Lumbar disc herniation with radiculopathy: (6) Rheumatoid arthritis: (7) Chronic pain syndrome: (8) Hypothyroidism: (9) T2DM (type 2 diabetes mellitus): Admission and Anticipated Discharge Date Admission Date: October 08, 2021 Subjective Patient is requiring hourly suctioning Review of Systems Review of Systems: Unobtainable due to endotracheal tube Physical Exam Physical Exam: General: Sedated, however follows simple commands. nontoxic. Skin: Warm, dry, Head: Atraumatic Ears, nose, mouth and throat: Airway obscured by endotracheal tube Cardiovascular: Normal peripheral perfusion Respiratory: Ventilator settings reviewed Gastrointestinal: Non distended Musculoskeletal: No deformity Results & Data Results & Data ([facility]) Vital Signs (Past 12 Hours) Vital Signs Temp Pulse Pulse Resp BP Pulse Ox 10/18/21 12:50 80 22 91 10/18/21 10:55 85 21 90 10/18/21 10:50 86 18 89 L 10/18/21 10:45 81 28 H 92 10/18/21 10:40 82 24 92 10/18/21 10:35 83 20 92 10/18/21 10:30 82 25 H 92 10/18/21 10:25 82 23 92 10/18/21 10:20 82 21 91 10/18/21 10:15 88 23 91 10/18/21 10:10 81 25 H 90 10/18/21 10:05 82 24 90 10/18/21 10:00 81 24 91 10/18/21 09:00 92 H 24 98 10/18/21 08:00 37.0 C 90 91 H 24 91 10/18/21 07:00 36.9 C 95 H 24 90 10/18/21 06:00 36.8 C 92 H 24 89 L 10/18/21 05:10 91 H 30 H 91 10/18/21 05:00 36.7 C 86 24 95 10/18/21 04:00 36.9 C 87 28 H 109/49 L 90 10/18/21 03:00 36.9 C 91 H 28 H 87 L 10/18/21 02:00 36.9 C 94 H 28 H 91 Critical Care Results & Data Vital Signs (Past 12 Hours) Vital Signs Temp Pulse Pulse Resp BP Pulse Ox 10/18/21 12:50 80 22 91 10/18/21 10:55 85 21 90 10/18/21 10:50 86 18 89 L 10/18/21 10:45 81 28 H 92 10/18/21 10:40 82 24 92 10/18/21 10:35 83 20 92 10/18/21 10:30 82 25 H 92 10/18/21 10:25 82 23 92 10/18/21 10:20 82 21 91 10/18/21 10:15 88 23 91 10/18/21 10:10 81 25 H 90 10/18/21 10:05 82 24 90 10/18/21 10:00 81 24 91 10/18/21 09:00 92 H 24 98 10/18/21 08:00 37.0 C 90 91 H 24 91 10/18/21 07:00 36.9 C 95 H 24 90 10/18/21 06:00 36.8 C 92 H 24 89 L 10/18/21 05:10 91 H 30 H 91 10/18/21 05:00 36.7 C 86 24 95 10/18/21 04:00 36.9 C 87 28 H 109/49 L 90 10/18/21 03:00 36.9 C 91 H 28 H 87 L 10/18/21 02:00 36.9 C 94 H 28 H 91 Lab & Micro Results (Past 24 Hours) RBC 2.54 M/uL (4.7-6.1) L 10/18/21 WBC 10.59 K/uL (4.8-10.8) 10/18/21 Hgb 8.2 g/dL (14.0-18.0) L 10/18/21 Hct 24.5 % (42-52) L 10/18/21 MCV 96.5 fL (80-100) 10/18/21 MCH 32.3 pg (25-34) 10/18/21 MCHC 33.5 g/dL (32-36) 10/18/21 RDW Standard Deviation 60.3 fL (36.4-46.3) H 10/18/21 RDW Coefficient of Variation 17.4 % (11.5-14.5) H 10/18/21 Plt Count 341 K/uL (130-400) 10/18/21 MPV 9.7 fL (7.4-10.4) 10/18/21 Neutrophils (%) (Auto) 73.5 % 10/18/21 Lymphocytes (%) (Auto) 8.2 % 10/18/21 Monocytes # (Auto) 1.30 K/uL (0.11-0.59) H 10/18/21 Eosinophils # (Auto) 0.03 K/uL (0-0.5) 10/18/21 Immature Granulocyte % (Auto) 5.6 % 10/18/21 Neutrophils # (Auto) 7.79 K/uL (1.4-6.5) H 10/18/21 Lymphocytes # (Auto) 0.87 K/uL (1.2-3.4) L 10/18/21 Monocytes # (Auto) 1.30 K/uL (0.11-0.59) H 10/18/21 Eosinophils # (Auto) 0.03 K/uL (0-0.5) 10/18/21 Basophils # (Auto) 0.01 K/uL (0-0.2) 10/18/21 Immature Granulocyte # (Auto) 0.59 K/uL (0.00-0.02) H 10/18/21 Na 135 mmol/L (136-145) L 10/18/21 K 3.2 mmol/L (3.5-5.1) L 10/18/21 Cl 96 mmol/L (98-107) L 10/18/21 CO2 34 mmol/L (21-32) H 10/18/21 Anion Gap 5 (3-11) 10/18/21 BUN 20 mg/dl (6-23) 10/18/21 Creatinine 0.83 mg/dl (0.6-1.4) 10/18/21 Estimated GFR ( Amer) 110.8 ml/min 10/18/21 Estimated GFR (Non-Af Amer) 95.6 ml/min 10/18/21 BUN/Creatinine Ratio 24.1 (10-20) H 10/18/21 Glu 103 mg/dl (70-99(Fasting)) H 10/18/21 Ca 8.0 mg/dl (8.5-10.1) L 10/18/21 Phosphorus Level 3.1 mg/dl (2.5-4.9) 10/18/21 Mg 2.0 mg/dl (1.7-2.4) 10/18/21 05:36 10/18/21 Calcium Level 8.0 mg/dl (8.5-10.1) L 10/18/21 05:36 10/18/21 William Test NA 10/18/21 04:56 10/18/21 Microbiology 10/13/21 05:34 Aerobic Blood Culture - Final Blood No growth in Aerobic bottle after 5 days. Anaerobic Blood Culture - Final No growth in Anaerobic bottle after 5 days. 10/13/21 05:43 Aerobic Blood Culture - Final Blood No growth in Aerobic bottle after 5 days. Anaerobic Blood Culture - Final No growth in Anaerobic bottle after 5 days. Diagnostic Findings (Past 24 Hours) Chest X-Ray 10/18/21 07:00 XR chest 1V portable CLINICAL HISTORY: Respiratory failure. COMPARISON STUDY: Chest radiograph October 17, 2021. FINDINGS: The tip of the endotracheal tube is 5 cm above the darrius. Right internal jugular central line remains in place. Tip of nasogastric tube is below the lower aspect of this image but at least within the stomach. Severe emphysema is again noted. Dense left suprahilar consolidation persists. Bilateral lower lung airspace opacities are also noted. Slight improvement is noted since earlier exams. Trace right pleural effusion. No pneumothorax. IMPRESSION: 1. Satisfactory positioning of lines and tubes. 2. Multifocal pneumonia, slightly improved. 3. Emphysema. ACT 112: Negative or not required by law. Electronically signed by: Sergei Beckwith M.D. 10/18/2021 7:19 AM I & O Totals 24 Hours 10/17/21 10/18/21 10/19/21 06:59 06:59 06:59 Intake Total 2841.416 / 2841.416 3402.089 / 3402.089 598.866 / 598.866 Output Total 1825 / 1825 2153 / 2153 300 / 300 Balance 1016.416 / 6441.809 6175.089 / 1249.089 298.866 / 298.866 Cumulative 10/08/21 19:31 thru 10/18/21 10:55 Intake Total 12968.4193 Output Total 33511 Balance 29550.4193 RT Ventilator Mngmt (Last Documented) Ventilator Ordered Settings Ventilator Support Mode CPAP 10/18/21 10:15 Respiratory Rate 22 10/18/21 12:50 Ventilator Tidal Volume 440 10/18/21 08:00 Setting Minute Ventilation 9.7 10/18/21 10:15 Ventilator Positive Pressure 10 10/18/21 10:15 Support Setting Positive End Expiratory 6 10/18/21 10:15 Pressure Fraction of Inspired Oxygen 40 10/18/21 12:50 Peak Inspiratory Flow 44 10/11/21 15:58 Machine Comment Placed on CPAP 03/05 40% 10/18/21 10:15 Ventilator - PT Measurements Respiratory Rate 22 Exhaled Tidal Volume 544 Minute Ventilation 9.7 Peak Inspiratory Airway 18 Pressure Plateau Pressure 15 Respiratory Cycle Inspiratory: 1:4.0 Expiratory Ratio Inspiratory Phase Time 0.77 End-Tidal CO2 31 Static Lung Compliance 63.14 Dynamic Lung Compliance 45.33 Normal Static Lung Compliance 48.00 Patient Measurements Comment Rt called to bedside to assess patient to end CPAP trial. upon assessment large amount of yellow/white secretions in ETT as well as circuit could be seen. Patient suctioned and lavaged at this time. Percussion by bed done at this time Coding Level of Care Code Critical Care 1st 30-74 mins Diagnoses MRSA pneumonia J15.212 Pneumonia J18.9 Laterality: left Lung location: upper lobe of lung Pneumonia type: due to unspecified organism Hypoxemic respiratory failure, chronic J96.11 Acute hypotension I95.9 Lumbar disc herniation with radiculopathy M51.16 Rheumatoid arthritis M06.9 Chronic pain syndrome G89.4 Hypothyroidism E03.9 T2DM (type 2 diabetes mellitus) E11.9 (1) Pneumonia Laterality: left Lung location: upper lobe of lung Pneumonia type: due to unspecified organism Qualified Code(s): J18.9 - Pneumonia, unspecified organism
--- NOTE | 2021-10-18 13:19 | Procedure Note ---
Procedure Note Date of Service October 18, 2021 Note Procedure date: October 18, 2021 Procedure: fiberoptic bronchoscopy Pre-procedure indication: Significant secretion burden Post-procedure Diagnosis: Mucoid impaction of the bronchi Prior to Procedure: Informed Consent: The risks, benefits, indications, potential complications, and alternatives were explained to the patient's and informed consent obtained. Attending Staff: Mukund Combs DO Resident/APC: Not applicable Skin Prep: Not applicable Anesthesia: Continuous infusion The identity of the patient was confirmed and a bedside time out was performed. Description of Procedure: Fiberoptic bronchoscopy was performed via endotracheal tube. Bronchioalveolar lavage bilateral lower lobes was performed. Findings included: Thick creamy white secretions again suctioned from nearly all lung liu with the exception of the right upper lobe. Complications: None Specimens: None Estimated blood loss: Zero Coding CPT Codes Pulmonary/Thoracic - Pulmonary and Thoracic: 61906 Bronchoscopy, reclear airway ([id number]) [facility] [place] Procedure Codes (Charges) Pulmonary/Thoracic Procedure 1: Pulmonary and Thoracic: 64845 Bronchoscopy, reclear airway
[2021-10-18] MEDS: busPIRone 7.5 MG TAB PO SCH (20:15)
[2021-10-18] MEDS: ROSUVASTATIN CALCIUM 5 MG TAB PO SCH (20:16)
[2021-10-19] MEDS: ALBUT/IPRATROP 3MG/0.5MG NEB 3 ML VIAL INH SCH ×4 (00:55→20:09)
[2021-10-19] MEDS: CLINDAMYCIN 600 MG in DEXTROSE 5% 50 ML IV SCH ×3 (01:17→17:15)
[2021-10-19] MEDS: TUBE FEEDING WATER FLUSH OG SCH ×3 (01:18→17:19)
[2021-10-19] MEDS: NOREPINEPHRINE/D5W 4 MG/250 ML PLCT IV SCH ×2 (01:59→14:46)
[2021-10-19] MEDS: MIDAZOLAM HCL 125 MG/250 ML BAG IV SCH (01:59)
[2021-10-19] MEDS: INSULIN ASPART PER UNIT SC SCH ×5 (04:20→20:35)
[2021-10-19 04:52] LABS: iSTAT Art Bld Gas pCO2 Correct 59 mmHg (35-46); iSTAT Art Bld Gas pH Corrected 7.402 (7.35-7.45); iSTAT Arterial Blood Gas HCO3 37 meg/L (19-24); iSTAT Arterial Blood Gas pCO2 59 mmHg (35-46); iSTAT Arterial Blood Gas pH 7.41 (7.35-7.45); iSTAT Arterial Blood Gas pO2 67 mmHg (80-95); iSTAT Arterial Blood Gas pO2 C 69; iSTAT Carbon Dioxide 39 mmol/L (24-31); iSTAT FiO2 40 %; iSTAT Hematocrit 22 % (42-52); iSTAT Hemoglobin 7.5 g/dl (14.0-18.0); iSTAT Potassium 4.1 mmol/L (3.3-5.0); iSTAT Site Art Line; iSTAT Sodium 132 mmol/L (135-144)
[2021-10-19 05:14] LABS: Hematocrit (blood only) 24.9 % (42-52); Mean Corpuscular Hgb Conc 32.1 g/dL (32-36); Mean Corpuscular Volume 96.5 fL (80-100); Mean Platelet Volume 9.7 fL (7.4-10.4); Platelet Count 432 K/uL (130-400); RDW Coefficient of Variation 17.8 % (11.5-14.5); RDW Standard Deviation 61.2 fL (36.4-46.3); Red Blood Count 2.58 M/uL (4.7-6.1); White Blood Count 11.55 K/uL (4.8-10.8)
[2021-10-19] MEDS: fentaNYL citrate 2,500 MCG/250 ML BAG IV SCH (05:21)
[2021-10-19 05:27] LABS: BUN Creatinine Ratio 20.7 (10-20); Calcium 8.1 mg/dl (8.5-10.1); Creatinine Clr Calc Pharmacy 92.8 ml/min; Est GFR (African American) 111.4 ml/min; Est GFR (Non-African American) 96.1 ml/min; Magnesium 1.9 mg/dl (1.7-2.4); Phosphorus 3.7 mg/dl (2.5-4.9); Potassium 4.3 mmol/L (3.5-5.1)
[2021-10-19 05:37] LABS: Basophils # (auto) 0.02 K/uL (0-0.2); Basophils % (auto) 0.2 %; Eosinophils # (auto) 0.04 K/uL (0-0.5); Eosinophils % (auto) 0.3 %; Immature Granulocytes # (auto) 0.81 K/uL (0.00-0.02); Lymphocytes # (auto) 0.87 K/uL (1.2-3.4); Lymphocytes % (auto) 7.5 %; Monocytes # (auto) 1.45 K/uL (0.11-0.59); Monocytes % (auto) 12.6 %; Neutrophils # (auto) 8.36 K/uL (1.4-6.5); Neutrophils % (auto) 72.4 %
[2021-10-19] MEDS: LEVOTHYROXINE SODIUM 25 MCG TABLET GT SCH (05:52)
--- NOTE | 2021-10-19 07:28 | XRay Report ---
XR chest 1V portable CLINICAL HISTORY: Respiratory failure. COMPARISON STUDY: Chest radiograph October 18, 2021. FINDINGS: Tip of endotracheal tube is 4.4 cm above the darrius. Right internal jugular central line re jeremy in place. Tip of nasogastric tube is below lower aspect of this image but is within the proxima l stomach. Severe emphysema is again noted. Left upper lobe consolidation has slightly improved. Pers istent bilateral lower lung airspace opacity is again noted. There is no pneumothorax. Small bilatera l pleural effusions are present. IMPRESSION: 1. Satisfactory positioning of lines and tubes. 2. Slight improvement in multifocal pneumonia. 3. Small bilateral pleural effusions. 4. Bullous emphysema. ACT 112: Negative or not required by law. Electronically signed by: Sergei Beckwith M.D. 10/19/2021 7:26 AM
[2021-10-19] MEDS: MIDAZOLAM BOLUS FROM BAG IV PRN ×2 (07:45→13:05)
[2021-10-19] MEDS: PANTOprazole 40 MG in SYRINGE 0 ML IV SCH (08:42)
--- NOTE | 2021-10-19 08:59 | Hospitalist Progress Note ---
Date of Service October 19, 2021 Assessment & Plan (1) Pneumonia: Plan: 60-year-old male past medical history significant for severe bullous emphysema, COPD, and rheumatoid arthritis on MTX presenting to the hospital due to acute on chronic hypoxemic and hypercapnic respiratory failure. The cause of his acute decompensation is thought to be a multifocal community-acquired PNA and subsequent COPD exacerbation. He was admitted directly to the ICU for vasoactive medication management. Currently on day 11 of his hospital stay, 8 days on ventilator. Ventilatory-Dependent Respiratory Failure (Acute on chronic hypoxemic and hypercapnic respiratory failure) - secondary to multifocal PNA + acute exacerbation of COPD - MRSA+ from sputum culture - s/p bronchoscopy 10/11, 10/14, 10/16 and 10/18 with aspiration of L upper lobe mucous plug - Continue Versed and Fentanyl while intubated - SpO2 goal 88-92% Hypotension - Multifactorial - sedation + sepsis - Currently requiring only one vasopressor - Continue prednisone taper (random cortisol normal) - Maintain MAP > 65 Hyponatremia - improving - Appears clinically euvolemic on exam - Initially downtrending Na to ~118 through the AM of 10/14 - sOsm low, uOsm high - suggestive of SIADH - suspect secondary to critical illness/PNA and linezolid (has since been d/c) - Improving on serial checks -- now at 132 and autocorrecting Sepsis secondary to MRSA PNA - SIRS and SOFA met on admission in presence of elevated PCT, ESR, CRP - Source: Chest CT showing multifocal PNA - sputum, bronch cultures growing MRSA - acid fast, fungal smears NEGATIVE - initial and repeat BCX - NGTD (though pending) - Resp Biofire panel neg - Quantiferon Gold - Indeterminate ; TB antigens negative - ID consulted, reported 10/13: Secondary to MRSA PNA - Transition from linezolid --> clindamycin x 14 days (end 10/27) - With negative AFB smear given multiple negative bronch and sputum samples, unlikely TB - d/c airborne precautions - s/p Azithromycin (atypical coverage) COPD with Exacerbation - in exacerbation due to multifocal PNA - s/p azithromycin course - Steroid taper ongoing - end 10/29 - Continue scheduled duonebs - Mucinex, flutter valve and chest PT ongoing ; s/p bronch x 4 - no home oxygen requirement YOON on CKD: resolved - Baseline Cr ~1.0 Alcohol use disorder in remission, cirrhosis: - No indication for AWSS protocol at this time. - no known varices - complication of neuropathy; continue home dose gabapentin PAD - continue home dose statin + aspirin Depression/Anxiety - Resumed venlafaxine, buspirone while intubated Rheumatoid arthritis: - Hold MTX in the setting of sepsis secondary to bacterial infection. Chronic pain, Idiopathic Polyneuropathy - Resumed gabapentin, carbamazepine - Hold home opioid DM2: - A1c 6.0 - short acting insulin ordered with carb ratio - carb consistent diet when not NPO - ICU hyperglycemia protocol Hypothyroidism - continue home dose levothyroxine GERD: - PPI while on steroids. CODE STATUS: DNR/DNI FEN: OGT in place, tolerating tube feeds DVT prophylaxis: Heparin 5000 units SQ every 12 hours Dispo: ICU (2) Acute exacerbation of chronic obstructive pulmonary disease: (3) Respiratory failure: (4) History of alcohol use: (5) Rheumatoid arthritis: (6) Cirrhosis, alcoholic: (7) T2DM (type 2 diabetes mellitus): Admission and Anticipated Discharge Date Admission Date: October 08, 2021 Supervising Physician Co-Signing Physician Notes Patient seen and examined with PGY-3 Dr. Sanhdu. Agree with history, exam findings, assessment and plan of care as outlined. In brief, Mr. Park is a 60 year old male with hx of severe bullous emphysema, COPD, and RA on methotrexate admitted with acute on chronic hypoxemic and hypercapnic respiratory failure. Intubated. VS and nursing notes reviewed. Intubated, sedated. On pressor. Heart with regular rate and rhythm. Coarse breath sounds throughout with occasional wheeze. Labs and imaging reviewed. 1. Ventilatory dependent respiratory failureacute on chronic hypoxemic and hypercapnic respiratory failure. Secondary to multifocal MRSA pneumonia and acute exacerbation of COPD. Continue clindamycin. Bronch on 10/11 and 10/14 with aspiration of L upper lobe mucous plug. Repeat brocnch on 10/16 to clear secretions/lavage. Still will a lot of secretions. Holding off on extubation for now. Dr. Combs has spoken with . 2. Hypotension. Secondary to sedation + sepsis. On norepi. Pred taper. MAP> 65. 3. Hyponatremia. SIADH due to critical illness/PNA. Improving. 4. Sepsis secondary to MRSA PNA. CT with multifocal pneumonia, MRSA in bronch cultures. ID consult: transitioned from linezoid to clinda x 14 days (abx end date 10/27) 5. COPD exacerbation. Finished azithro. Steroid taper to end October 29. 6. Rheumatoid arthritis. Holding home methotrexate. 7. DM2. Per ICU protocol. Dispo: pending clinical improvement Subjective remains in ICU on mechanical vent. Review of Systems Review of Systems: Unobtainable due to endotracheal tube Physical Exam Constitutional: WD/WN, vitals as above + mechanically ventilated Eyes: + anicteric sclerae ENMT: external ear and nose normal, oropharynx normal Neck: normal visual inspection and trachea midline Respiratory: Auscultation: + diminished lung sounds, + rhonchi (L > R) and + wheezes (diffusely ) Cardiovascular: Rate/Rhythm: regular rhythm and + tachycardic Heart Sounds: normal S1 and normal S2 Extremities: + abnormal capillary refill (3 seconds) Gastrointestinal (Abdomen): normal bowel sounds, soft, nontender, no hepatosplenomegaly Inspection/Auscultation: + abdomen distended Rectal tube in place Musculoskeletal: Head/Neck/Chest: normocephalic and head atraumatic Skin: no rashes, warm and dry Neurologic: moves all extremities Psychiatric: A+Ox3, euthymic affect Genitourinary: Pool catheter in place, draining yellow urine without visible blood clots Results & Data Results & Data ([facility]) Vital Signs (Past 12 Hours) Vital Signs Temp Pulse Pulse Pulse Resp BP Pulse Ox 10/19/21 08:50 71 24 90 10/19/21 08:48 88 24 89 L 10/19/21 08:46 86 21 86 L 10/19/21 08:44 86 24 85 L 10/19/21 08:42 86 24 87 L 10/19/21 08:40 88 21 90 10/19/21 08:38 94 H 24 89 L 10/19/21 08:36 94 H 24 89 L 10/19/21 08:34 95 H 21 91 10/19/21 08:32 94 H 24 90 10/19/21 08:30 37.4 C 88 24 90 10/19/21 08:20 86 24 91 10/19/21 08:10 100 H 35 H 94 10/19/21 08:06 90 18 91 10/19/21 08:00 91 H 25 H 90 10/19/21 07:50 92 H 21 90 10/19/21 07:40 87 24 91 10/19/21 07:30 92 H 24 92 10/19/21 07:20 91 H 21 92 10/19/21 07:10 90 24 92 10/19/21 07:00 92 H 24 98 10/19/21 06:50 89 24 89 L 10/19/21 06:40 91 H 24 92 10/19/21 06:30 90 24 93 10/19/21 06:20 91 H 24 91 10/19/21 06:10 89 24 92 10/19/21 06:00 36.9 C 91 H 24 90 10/19/21 05:00 90 24 91 10/19/21 04:02 83 24 96 10/19/21 04:00 36.9 C 82 24 102/48 L 95 10/19/21 03:00 87 24 97 10/19/21 02:00 90 20 96 10/19/21 01:00 85 28 H 97 10/19/21 00:55 90 24 96 10/19/21 00:00 37.6 C H 82 20 104/47 L 95 10/18/21 23:36 86 24 93 10/18/21 23:00 83 24 96 10/18/21 22:00 82 24 98 10/18/21 21:00 78 24 97 Resident Activity Tracking Resident Involvement: Resident Care Provided Care Provided: Adult Hospital Medicine (1) Respiratory failure Chronicity: acute Respiratory failure complication: hypoxia Qualified Code(s): J96.01 - Acute respiratory failure with hypoxia (2) Pneumonia Laterality: left Lung location: upper lobe of lung Pneumonia type: due to unspecified organism Qualified Code(s): J18.9 - Pneumonia, unspecified organism
[2021-10-19] MEDS: carBAMazepine 100 MG CHEW TAB PO SCH ×2 (09:19→20:35)
[2021-10-19] MEDS: MAGNESIUM OXIDE 400 MG TAB PO SCH ×2 (09:19→20:36)
[2021-10-19] MEDS: GABAPENTIN 250 MG/5 ML 470 ML BTL GT SCH ×4 (09:19→20:36)
[2021-10-19] MEDS: predniSONE 10 MG TABLET PO SCH (09:20)
[2021-10-19] MEDS: ASPIRIN 81 MG CHEW PO SCH (09:20)
[2021-10-19] MEDS: busPIRone 15 MG TAB GT SCH ×3 (09:20→20:36)
[2021-10-19] MEDS: HEPARIN SOD 5,000 UNIT/0.5 ML VIAL SQ SCH ×2 (09:21→20:37)
[2021-10-19] MEDS: MULTI VIT W/MINERALS LIQUID 15 ML UDP NG SCH (09:21)
[2021-10-19] MEDS: VENLAFAXINE HCL 50 MG TAB PO SCH ×3 (09:21→20:37)
[2021-10-19] MEDS: UMECLIDINIUM BROMIDE 62.5MCG/BLISTER 7 PUFFS/INHALER INH SCH (09:22)
--- NOTE | 2021-10-19 12:16 | Critical Care Progress Note ---
Date of Service October 19, 2021 Assessment & Plan (1) MRSA pneumonia: (2) Pneumonia: Plan: Reason Critically Ill: 60-year-old male with a past medical history of severe bullous emphysema and COPD presenting to the hospital due to acute pneumonia and combined acute on chronic hypoxemic and hypercapnic respiratory failure Neuro - Idiopathic polyneuropathy, chronic pain syndrome, Depression, metabolic encephalopathy CAM ICU: Negative -Continue gabapentin -Continue carbamazepine -Continue BuSpar -Continue Versed and fentanyl while intubated. Goal RASS of -1. Cardiac - HYPOTENSION, SEPSIS, ELEVATED TROPONIN - SEPSIS secondary from Pneumonia- bacterial presumed -Hypotension: Resolving, off phenylephrine, vasopressin, minimal levophed requirements - adding midodrine 5mg TID Respiratory - Multifocal Bacterial PNA greatest left upper lobe, COPD bullous emphysema, chronic oxygen therapy, chronic respiratory failure - Acute on chronic respiratory failure secondary to pneumonia-improving - monotherapy clindamycin - Sputum cultures positive for MRSA. - Steroid taper ordered - Status post bronchoscopy 10/11/2021 with aspiration of a left upper lobe mucous plug. - S/P Bronchoscopy 10/13 & 10/16 & 10/18 - Ventilation day 9 With significant mucoid impaction at suctioning every hour patient would not be able to cough adequately to clear her airways - Will likely require higher PEEP I believe he is auto trapping secretions due to significant COPD and excessive dynamic airway collapse - Also waiting for family decision regarding terminal extubation vs tracheostomy if fails trial of extubation. GI - No acute needs- HX cirrhosis, GERD - Tolerating tube feed. - No known Varices -Bowel movement 10/18, hold laxatives RENAL/LYTES - YOON type II Hyponatremia: Improving - auto-correcting -Hypokalemia: resolved -Hypomagnesemia: Resolved -Hypophosphatemia: Resolved MSK: L4-L5 herniation with radiculopathy ENDO - TYPE II DM, HYPOTHYROID - ICU glycemic protocol- goal < 180mg/dl - Continue Synthroid - TSH within normal limits. HEME - Leukopenia, anemia. RA - leukopenia likely secondary to sepsis - No acute blood loss noted- recent colonoscopy noted hemorrhoids, and rectal polyp - Continue FESO4 tabs MCV normal - - HOLD methotrexate ID -MRSA pneumonia - ESR elevated, but also with history of RA - Blood cultures negative to date -QuantiFERON gold reviewed. AFB sputum cultures: negative. Staph MRSA seen on sputum cultures. Bronchoscopy performed 10/11 and culture sent. - Zosyn Day 5 days, discontinue today, Azithro: finishing 10/13, Vanco Day 10/07 finsihed 10/12, then 1 day linazolid, transition to IV clindamycin for 14 days total effective therapy -Based on sensitivities the vancomycin may not of been effective so we will consider effective therapy starting from the lip daily of linezolid, day 12/11 effective therapy (stop date ordered) LINES/IV ACCESS - - PIV -Right IJ placed 10/11/2021 - Right arterial line 10/11/21 DVT PROPHYLAXIS - - HEPARIN 5000 units sub q q12 Patient DNR/DNI in event of cardiac arrest CRITICAL CARE TIME - I have personally spent 35 minutes of critical care time in the direct management of this patient. This is a life/limb threatening event. This includes time spent evaluating patient, direct bedside care, chart review, placing orders, interpretation of diagnostic studies, discussion with consultants, patient, and family members, as well as other required patient management activities. This time is exclusive of all separately billable procedures, and teaching time and separate from and in addition to any other critical care service time. (3) Hypoxemic respiratory failure, chronic: (4) Acute hypotension: (5) Lumbar disc herniation with radiculopathy: (6) Rheumatoid arthritis: (7) Chronic pain syndrome: (8) Hypothyroidism: (9) T2DM (type 2 diabetes mellitus): Admission and Anticipated Discharge Date Admission Date: October 08, 2021 Subjective Continues to require suctioning every hour or less. Review of Systems Review of Systems: Unobtainable due to endotracheal tube Physical Exam Physical Exam: General: Sedated. nontoxic. Skin: Warm, dry, Head: Atraumatic Ears, nose, mouth and throat: airway obscured by endotracheal tube Cardiovascular: Normal peripheral perfusion Respiratory: Ventilator settings reviewed Gastrointestinal: Non distended Musculoskeletal: No deformity Results & Data Results & Data ([facility]) Vital Signs (Past 12 Hours) Vital Signs Temp Pulse Pulse Pulse Resp BP Pulse Ox 10/19/21 12:03 71 24 95 10/19/21 12:00 69 24 92 10/19/21 11:40 69 24 91 10/19/21 11:00 73 24 90 10/19/21 10:00 76 24 90 10/19/21 09:08 84 24 109/70 90 10/19/21 09:02 82 24 112/60 90 10/19/21 09:00 80 24 118/60 90 10/19/21 08:57 80 24 134/69 90 10/19/21 08:50 71 24 90 10/19/21 08:48 88 24 89 L 10/19/21 08:46 86 21 86 L 10/19/21 08:44 86 24 85 L 10/19/21 08:42 86 24 87 L 10/19/21 08:40 88 21 90 10/19/21 08:38 94 H 24 89 L 10/19/21 08:36 94 H 24 89 L 10/19/21 08:34 95 H 21 91 10/19/21 08:32 94 H 24 90 10/19/21 08:30 37.4 C 88 24 90 10/19/21 08:20 86 24 91 10/19/21 08:10 100 H 35 H 94 10/19/21 08:06 90 18 91 10/19/21 08:02 92 H 26 H 90 10/19/21 08:00 91 H 25 H 90 10/19/21 07:50 92 H 21 90 10/19/21 07:40 87 24 91 10/19/21 07:30 92 H 24 92 10/19/21 07:20 91 H 21 92 10/19/21 07:10 90 24 92 10/19/21 07:00 92 H 24 98 10/19/21 06:50 89 24 89 L 10/19/21 06:40 91 H 24 92 10/19/21 06:30 90 24 93 10/19/21 06:20 91 H 24 91 10/19/21 06:10 89 24 92 10/19/21 06:00 36.9 C 91 H 24 90 10/19/21 05:00 90 24 91 10/19/21 04:02 83 24 96 10/19/21 04:00 36.9 C 82 24 102/48 L 95 10/19/21 03:00 87 24 97 10/19/21 02:00 90 20 96 10/19/21 01:00 85 28 H 97 10/19/21 00:55 90 24 96 Critical Care Results & Data Vital Signs (Past 12 Hours) Vital Signs Temp Pulse Pulse Pulse Resp BP Pulse Ox 10/19/21 12:03 71 24 95 10/19/21 12:00 69 24 92 10/19/21 11:40 69 24 91 10/19/21 11:00 73 24 90 10/19/21 10:00 76 24 90 10/19/21 09:08 84 24 109/70 90 10/19/21 09:02 82 24 112/60 90 10/19/21 09:00 80 24 118/60 90 10/19/21 08:57 80 24 134/69 90 10/19/21 08:50 71 24 90 10/19/21 08:48 88 24 89 L 10/19/21 08:46 86 21 86 L 10/19/21 08:44 86 24 85 L 10/19/21 08:42 86 24 87 L 10/19/21 08:40 88 21 90 10/19/21 08:38 94 H 24 89 L 10/19/21 08:36 94 H 24 89 L 10/19/21 08:34 95 H 21 91 10/19/21 08:32 94 H 24 90 10/19/21 08:30 37.4 C 88 24 90 10/19/21 08:20 86 24 91 10/19/21 08:10 100 H 35 H 94 10/19/21 08:06 90 18 91 10/19/21 08:02 92 H 26 H 90 10/19/21 08:00 91 H 25 H 90 10/19/21 07:50 92 H 21 90 10/19/21 07:40 87 24 91 10/19/21 07:30 92 H 24 92 10/19/21 07:20 91 H 21 92 10/19/21 07:10 90 24 92 10/19/21 07:00 92 H 24 98 10/19/21 06:50 89 24 89 L 10/19/21 06:40 91 H 24 92 10/19/21 06:30 90 24 93 10/19/21 06:20 91 H 24 91 10/19/21 06:10 89 24 92 10/19/21 06:00 36.9 C 91 H 24 90 10/19/21 05:00 90 24 91 10/19/21 04:02 83 24 96 10/19/21 04:00 36.9 C 82 24 102/48 L 95 10/19/21 03:00 87 24 97 10/19/21 02:00 90 20 96 05/22/22 01:00 85 28 H 97 10/19/21 00:55 90 24 96 Lab & Micro Results (Past 24 Hours) RBC 2.58 M/uL (4.7-6.1) L 10/19/21 WBC 11.55 K/uL (4.8-10.8) H 10/19/21 Hgb 8.0 g/dL (14.0-18.0) L 10/19/21 Hct 24.9 % (42-52) L 10/19/21 MCV 96.5 fL (80-100) 10/19/21 MCH 31.0 pg (25-34) 10/19/21 MCHC 32.1 g/dL (32-36) 10/19/21 RDW Standard Deviation 61.2 fL (36.4-46.3) H 10/19/21 RDW Coefficient of Variation 17.8 % (11.5-14.5) H 10/19/21 Plt Count 432 K/uL (130-400) H 10/19/21 MPV 9.7 fL (7.4-10.4) 10/19/21 Neutrophils (%) (Auto) 72.4 % 10/19/21 Lymphocytes (%) (Auto) 7.5 % 10/19/21 Monocytes # (Auto) 1.45 K/uL (0.11-0.59) H 10/19/21 Eosinophils # (Auto) 0.04 K/uL (0-0.5) 10/19/21 Immature Granulocyte % (Auto) 7.0 % 10/19/21 Neutrophils # (Auto) 8.36 K/uL (1.4-6.5) H 10/19/21 Lymphocytes # (Auto) 0.87 K/uL (1.2-3.4) L 10/19/21 Monocytes # (Auto) 1.45 K/uL (0.11-0.59) H 10/19/21 Eosinophils # (Auto) 0.04 K/uL (0-0.5) 10/19/21 Basophils # (Auto) 0.02 K/uL (0-0.2) 10/19/21 Immature Granulocyte # (Auto) 0.81 K/uL (0.00-0.02) H 10/19/21 Na 134 mmol/L (136-145) L 10/19/21 K 4.3 mmol/L (3.5-5.1) 10/19/21 Cl 96 mmol/L (98-107) L 10/19/21 CO2 34 mmol/L (21-32) H 10/19/21 Anion Gap 4 (3-11) 10/19/21 BUN 17 mg/dl (6-23) 10/19/21 Creatinine 0.82 mg/dl (0.6-1.4) 10/19/21 Estimated GFR ( Amer) 111.4 ml/min 10/19/21 Estimated GFR (Non-Af Amer) 96.1 ml/min 10/19/21 BUN/Creatinine Ratio 20.7 (10-20) H 10/19/21 Glu 124 mg/dl (70-99(Fasting)) H 10/19/21 Ca 8.1 mg/dl (8.5-10.1) L 10/19/21 Phosphorus Level 3.7 mg/dl (2.5-4.9) 10/19/21 Mg 1.9 mg/dl (1.7-2.4) 10/19/21 04:33 10/19/21 Calcium Level 8.1 mg/dl (8.5-10.1) L 10/19/21 04:33 10/19/21 William Test NA 10/19/21 04:04 10/19/21 Microbiology 10/11/21 08:45 Fungal Smear - Final Bronch Wash,Left Upper Lobe Fungal Culture - Preliminary No yeast or fungus isolated - Report 2, Additional report to follow. Diagnostic Findings (Past 24 Hours) Chest X-Ray 10/19/21 07:00 XR chest 1V portable CLINICAL HISTORY: Respiratory failure. COMPARISON STUDY: Chest radiograph October 18, 2021. FINDINGS: Tip of endotracheal tube is 4.4 cm above the darrius. Right internal jugular central line remains in place. Tip of nasogastric tube is below lower aspect of this image but is within the proximal stomach. Severe emphysema is again noted. Left upper lobe consolidation has slightly improved. Persistent bilateral lower lung airspace opacity is again noted. There is no pneumothorax. Small bilateral pleural effusions are present. IMPRESSION: 1. Satisfactory positioning of lines and tubes. 2. Slight improvement in multifocal pneumonia. 3. Small bilateral pleural effusions. 4. Bullous emphysema. ACT 112: Negative or not required by law. Electronically signed by: Sergei Beckwith M.D. 10/19/2021 7:26 AM I & O Totals 24 Hours 10/18/21 10/19/21 10/20/21 06:59 06:59 06:59 Intake Total 3402.089 / 3402.089 1869.509 / 1869.509 189.474 / 189.474 Output Total 2153 / 2153 1600 / 1600 300 / 300 Balance 1249.089 / 1249.089 269.509 / 269.509 -110.526 / -110.526 Cumulative 10/08/21 19:31 thru 10/19/21 10:43 Intake Total 89899.5363 Output Total 35720 Balance 61136.5363 RT Ventilator Mngmt (Last Documented) Ventilator Ordered Settings Ventilator Support Mode Assist Control 10/19/21 11:40 Respiratory Rate 24 10/19/21 12:03 Ventilator Tidal Volume 440 10/19/21 11:40 Setting Minute Ventilation 10.6 10/19/21 11:40 Ventilator Positive Pressure 10 10/18/21 10:15 Support Setting Positive End Expiratory 6 10/19/21 11:40 Pressure Fraction of Inspired Oxygen 40 10/19/21 11:40 Peak Inspiratory Flow 44 10/11/21 15:58 Machine Comment weaned to +6 at 0940 post CPAP 10/19/21 11:40 trial Ventilator - PT Measurements Respiratory Rate 24 Exhaled Tidal Volume 441 Minute Ventilation 10.6 Peak Inspiratory Airway 27 Pressure Plateau Pressure 14 Respiratory Cycle Inspiratory: 1:4.0 Expiratory Ratio Inspiratory Phase Time 0.50 End-Tidal CO2 26 Static Lung Compliance 55.13 Dynamic Lung Compliance 21.00 Normal Static Lung Compliance 46.00 Patient Measurements Comment CPAP trial attempted at this time 10/6 40%. Patient able to wean only as prompted to breathe . RN as well as RT in room for trial, placed back on A/C settings and made aware Coding Level of Care Code Critical Care 1st 30-74 mins Diagnoses MRSA pneumonia J15.212 Pneumonia J18.9 Laterality: left Lung location: upper lobe of lung Pneumonia type: due to unspecified organism Hypoxemic respiratory failure, chronic J96.11 Acute hypotension I95.9 Lumbar disc herniation with radiculopathy M51.16 Rheumatoid arthritis M06.9 Chronic pain syndrome G89.4 Hypothyroidism E03.9 T2DM (type 2 diabetes mellitus) E11.9 (1) Pneumonia Laterality: left Lung location: upper lobe of lung Pneumonia type: due to unspecified organism Qualified Code(s): J18.9 - Pneumonia, unspecified organism
[2021-10-19] MEDS: MIDODRINE HCL 2.5 MG TAB PO SCH (17:15)
[2021-10-19] MEDS: ROSUVASTATIN CALCIUM 5 MG TAB PO SCH (20:36)
[2021-10-19] MEDS: busPIRone 7.5 MG TAB PO SCH (20:36)
[2021-10-20] MEDS: INSULIN ASPART PER UNIT SC SCH ×6 (00:01→21:39)
[2021-10-20] MEDS: fentaNYL citrate 2,500 MCG/250 ML BAG IV SCH (00:15)
[2021-10-20] MEDS: ALBUT/IPRATROP 3MG/0.5MG NEB 3 ML VIAL INH SCH ×4 (00:44→19:42)
[2021-10-20] MEDS: CLINDAMYCIN 600 MG in DEXTROSE 5% 50 ML IV SCH ×3 (01:50→17:42)
[2021-10-20] MEDS: TUBE FEEDING WATER FLUSH OG SCH ×3 (01:50→15:36)
[2021-10-20] MEDS: NOREPINEPHRINE/D5W 4 MG/250 ML PLCT IV SCH (02:04)
[2021-10-20 04:53] LABS: iSTAT Allen Test Pass; iSTAT Art Bld Gas pCO2 Correct 57 mmHg (35-46); iSTAT Art Bld Gas pH Corrected 7.438 (7.35-7.45); iSTAT Arterial Blood Gas HCO3 38 meg/L (19-24); iSTAT Arterial Blood Gas pCO2 56 mmHg (35-46); iSTAT Arterial Blood Gas pH 7.44 (7.35-7.45); iSTAT Arterial Blood Gas pO2 72 mmHg (80-95); iSTAT Arterial Blood Gas pO2 C 74; iSTAT Carbon Dioxide > 40 mmol/L (24-31); iSTAT FiO2 40 %; iSTAT Hematocrit 25 % (42-52); iSTAT Hemoglobin 8.5 g/dl (14.0-18.0); iSTAT Potassium 4.1 mmol/L (3.3-5.0); iSTAT Site Art Line; iSTAT Sodium 136 mmol/L (135-144)
--- NOTE | 2021-10-20 05:50 | Hospitalist Progress Note ---
Date of Service October 20, 2021 Assessment & Plan (1) Pneumonia: Plan: 60-year-old male past medical history significant for severe bullous emphysema, COPD, and rheumatoid arthritis on MTX presenting to the hospital due to acute on chronic hypoxemic and hypercapnic respiratory failure. The cause of his acute decompensation is thought to be a multifocal community-acquired PNA and subsequent COPD exacerbation. He was admitted directly to the ICU for vasoactive medication management. Ventilatory-Dependent Respiratory Failure (Acute on chronic hypoxemic and hypercapnic respiratory failure) - secondary to multifocal PNA + acute exacerbation of COPD - MRSA+ from sputum culture - s/p bronchoscopy 10/11, 10/14, 10/16 and 10/18 with aspiration of L upper lobe mucous plug - Continue Precedex and Fentanyl while intubated - SpO2 goal 88-92% - Family currently involved with goals of care given guarded course: terminal extubation vs. placement of tracheostomy Hypotension - Multifactorial - sedation + sepsis - Currently requiring only one vasopressor and midodrine - Continue prednisone taper (random cortisol normal) - Maintain MAP > 65 Hyponatremia - improving - Appears clinically euvolemic on exam - Initially downtrending Na to ~118 through the AM of 10/14 - sOsm low, uOsm high - suggestive of SIADH - suspect secondary to critical illness/PNA and linezolid (has since been d/c) - Improving on serial checks Sepsis secondary to MRSA PNA - SIRS and SOFA met on admission in presence of elevated PCT, ESR, CRP - Source: Chest CT showing multifocal PNA - sputum, bronch cultures growing MRSA - acid fast, fungal smears NEGATIVE - initial and repeat BCX - NGTD - Resp Biofire panel neg - Quantiferon Gold - Indeterminate ; TB antigens negative ; unlikely TB per ID - ID consulted, reported 10/13: Secondary to MRSA PNA - Transition from linezolid --> clindamycin x 14 days (end 10/27) Normocytic Anemia - Progressive normocytic anemia appreciated on admission (10.7 --> ~8) - Likely some contribution from chronic disease / MTX (as admission level was 10.7) - Suspect drop is mostly d/t phlebotomy, dilution, and recovering nutrition status in critical illness - No e/o active bleeding; on heparin for DVT ppx - Add bilirubin, iron studies, and nutritional labs (B12, folate) Watery Stools - Multiple watery stools observed 10/19 onward, in setting of ongoing cilndamycin - Check C. diff studies COPD with Exacerbation - in exacerbation due to multifocal PNA - s/p azithromycin course - Steroid taper ongoing - end 10/29 - Continue scheduled duonebs - Mucinex, flutter valve and chest PT ongoing ; s/p bronch x 4 - no home oxygen requirement YOON on CKD: resolved - Baseline Cr ~1.0 Alcohol use disorder in remission, cirrhosis: - No indication for AWSS protocol at this time. - no known varices - complication of neuropathy; continue home dose gabapentin PAD - continue home dose statin + aspirin Depression/Anxiety - Resumed venlafaxine, buspirone while intubated Rheumatoid arthritis: - Hold MTX in the setting of sepsis secondary to bacterial infection. Chronic pain, Idiopathic Polyneuropathy - Resumed gabapentin, carbamazepine - Hold home opioid DM2: - A1c 6.0 - short acting insulin ordered with carb ratio - carb consistent diet when not NPO - ICU hyperglycemia protocol Hypothyroidism - continue home dose levothyroxine GERD: - PPI while on steroids. CODE STATUS: Conditional code -- no CPR, ok for intubation FEN: OGT in place, tolerating tube feeds DVT prophylaxis: Heparin 5000 units SQ every 12 hours Dispo: ICU (2) Acute exacerbation of chronic obstructive pulmonary disease: (3) Respiratory failure: (4) History of alcohol use: (5) Rheumatoid arthritis: (6) Cirrhosis, alcoholic: (7) T2DM (type 2 diabetes mellitus): Admission and Anticipated Discharge Date Admission Date: October 08, 2021 Supervising Physician Co-Signing Physician Notes ICU managing entirely. case d/w dr salinas, chart reviewed. did not personally see patient today as ICU handling all aspects of his care. Subjective Unable to provide history given sedation and requirement for mechanical ventilation. More alert today and following basic commands. Review of Systems Review of Systems: as per HPI Physical Exam Physical Exam: General: 60-year old male who is mechanically ventilated, able to follow basic commands like squeezing hands / moving feet. HEENT: NCAT. ETT in place. - Neck - supple, no appreciable JVD Cardiac: Normal rate with regular rhythm; S1 and S2 present with no murmurs, rubs, or gallops. Pulmonary: Mechanically ventilated. Lung sounds are coarse and rhonchi are noted throughout, L>R, much improved compared to last week's exams Abdominal: Abdomen was soft, mildly distended Extremities: Upper and lower extremities are warm and well perfused. Capillary refill < 2 seconds. Results & Data Results & Data ([facility]) Vital Signs (Past 12 Hours) Vital Signs Temp Pulse Pulse Resp BP Pulse Ox 10/20/21 04:25 64 28 H 93 10/20/21 04:00 37.4 C 75 24 130/49 L 91 10/20/21 03:00 62 24 92 10/20/21 02:00 37.4 C 74 24 92 10/20/21 01:00 66 24 98 10/20/21 00:44 68 24 93 10/20/21 00:00 36.9 C 61 24 138/54 L 92 10/19/21 23:01 67 24 90 10/19/21 23:00 63 21 92 10/19/21 22:00 55 L 21 92 10/19/21 21:00 62 24 91 10/19/21 20:10 63 63 24 97 10/19/21 20:00 67 24 146/70 H 94 10/19/21 19:00 64 24 93 10/19/21 18:00 57 L 24 95 Resident Activity Tracking Resident Involvement: Resident Care Provided Care Provided: Adult Hospital Medicine (1) Respiratory failure Chronicity: acute Respiratory failure complication: hypoxia Qualified Code(s): J96.01 - Acute respiratory failure with hypoxia (2) Pneumonia Laterality: left Lung location: upper lobe of lung Pneumonia type: due to unspecified organism Qualified Code(s): J18.9 - Pneumonia, unspecified organism
[2021-10-20 05:52] LABS: BUN Creatinine Ratio 21.3 (10-20); Calcium 8.2 mg/dl (8.5-10.1); Creatinine Clr Calc Pharmacy 101.5 ml/min; Est GFR (African American) 115.6 ml/min; Est GFR (Non-African American) 99.7 ml/min; Hematocrit (blood only) 24.6 % (42-52); Hemoglobin 7.9 g/dL (14.0-18.0); Magnesium 1.9 mg/dl (1.7-2.4); Mean Corpuscular Hgb Conc 32.1 g/dL (32-36); Mean Corpuscular Volume 96.5 fL (80-100); Mean Platelet Volume 9.8 fL (7.4-10.4); Phosphorus 3.7 mg/dl (2.5-4.9); Platelet Count 530 K/uL (130-400); Potassium 4.3 mmol/L (3.5-5.1); Red Blood Count 2.55 M/uL (4.7-6.1); White Blood Count 9.68 K/uL (4.8-10.8)
[2021-10-20] MEDS ORDERED: MAGNESIUM SULFATE / D5W 1 GM/100 ML BAG IV ONE (06:16)
[2021-10-20] MEDS: LEVOTHYROXINE SODIUM 25 MCG TABLET GT SCH (06:21)
[2021-10-20 06:32] LABS: Basophils # (auto) 0.02 K/uL (0-0.2); Basophils % (auto) 0.2 %; Eosinophils # (auto) 0.02 K/uL (0-0.5); Eosinophils % (auto) 0.2 %; Immature Granulocytes # (auto) 0.71 K/uL (0.00-0.02); Immature Granulocytes % (auto) 7.3 %; Lymphocytes # (auto) 0.85 K/uL (1.2-3.4); Lymphocytes % (auto) 8.8 %; Monocytes # (auto) 1.13 K/uL (0.11-0.59); Monocytes % (auto) 11.7 %; Neutrophils # (auto) 6.95 K/uL (1.4-6.5); Neutrophils % (auto) 71.8 %; RBC Morphology Unremarkable
[2021-10-20] MEDS: PANTOprazole 40 MG in SYRINGE 0 ML IV SCH (07:37)
[2021-10-20] MEDS: MULTI VIT W/MINERALS LIQUID 15 ML UDP NG SCH (07:37)
[2021-10-20] MEDS: HEPARIN SOD 5,000 UNIT/0.5 ML VIAL SQ SCH ×2 (07:38→21:44)
[2021-10-20] MEDS: MAGNESIUM OXIDE 400 MG TAB PO SCH ×2 (07:38→21:45)
[2021-10-20] MEDS: MIDODRINE HCL 2.5 MG TAB PO SCH ×3 (07:39→17:17)
[2021-10-20] MEDS: ASPIRIN 81 MG CHEW PO SCH (07:40)
[2021-10-20] MEDS: busPIRone 15 MG TAB GT SCH ×3 (07:40→21:43)
[2021-10-20] MEDS: carBAMazepine 100 MG CHEW TAB PO SCH ×2 (07:41→21:41)
[2021-10-20] MEDS: predniSONE 10 MG TABLET PO SCH (07:41)
[2021-10-20] MEDS: VENLAFAXINE HCL 50 MG TAB PO SCH ×3 (07:42→21:46)
[2021-10-20] MEDS: GABAPENTIN 250 MG/5 ML 470 ML BTL GT SCH ×4 (08:26→22:02)
[2021-10-20] MEDS ORDERED: STAT IV Infusion **Titration per Protocol STA (08:27)
[2021-10-20] MEDS: UMECLIDINIUM BROMIDE 62.5MCG/BLISTER 7 PUFFS/INHALER INH SCH (08:27)
--- NOTE | 2021-10-20 08:28 | XRay Report ---
XR chest 1V portable CLINICAL HISTORY: Resp failure. Follow-up multifocal pneumonia COMPARISON STUDY: 10/19/2021 TECHNIQUE: 1 view of the chest FINDINGS: Single frontal view of the chest demonstrates the cardiomediastinal silhouette to be within normal li mits. Tubes and catheters are unchanged. Compared to previous examination, there is no significant in terval change in left mid to upper lobe and right lower lobe alveolar opacities. There is atelectasis at the left lung base. There is again evidence for very small bilateral pleural effusions. There is no evidence for vascular congestion. There is no acute osseous pathology. IMPRESSION: 1. No significant interval change in bilateral alveolar opacities and small bilateral pleural effusio ns. ACT 112: Negative or not required by law. Electronically signed by: Avelino Richards M.D. 10/20/2021 8:27 AM
--- NOTE | 2021-10-20 10:13 | Critical Care Progress Note ---
Date of Service October 20, 2021 Assessment & Plan (1) MRSA pneumonia: (2) Pneumonia: Plan: Reason Critically Ill: 60-year-old male with a past medical history of severe bullous emphysema and COPD presenting to the hospital due to acute pneumonia and combined acute on chronic hypoxemic and hypercapnic respiratory failure Neuro - Idiopathic polyneuropathy, chronic pain syndrome, Depression, metabolic encephalopathy CAM ICU: Negative - No focal deficits - gabapentin - carbamazepine -BuSpar -Discontinue Versed. We will trial Precedex and fentanyl. Cardiac - HYPOTENSION, SEPSIS, ELEVATED TROPONIN -Maintain mean arterial pressure above 65 Respiratory - Multifocal Bacterial PNA greatest left upper lobe, COPD bullous emphysema, chronic oxygen therapy, chronic respiratory failure - Acute on chronic respiratory failure secondary to pneumonia- -patient with severe bullous emphysema bilaterally. Left upper lobe bulla appears to be infected with an air-fluid level. We will consider repeating a CT chest today. -Continue lung protective ventilation strategy. Currently on a prednisone taper. GI - No acute needs- HX cirrhosis, GERD -Initiate trickle tube feeds today. - PPI while on steroids - No known Varices RENAL/LYTES - YOON type II, HYPOMAG -ICU electrolyte protocol. Monitor urine output closely. MSK: L4-L5 herniation with radiculopathy ENDO - TYPE II DM, HYPOTHYROID - ICU glycemic protocol- goal < 180mg/dl - Continue Synthroid -TSH within normal limits. HEME - Leukopenia, anemia. RA - leukopenia likely secondary to sepsis - No acute blood loss noted- recent colonoscopy noted hemorrhoids, and rectal polyp - Continue FESO4 tabs MCV normal - - HOLD methotrexate ID -MRSA pneumonia -Continue clindamycin as per infectious disease recommendation. Patient with profuse watery stools. We will obtain a C. difficile toxin and gene. LINES/IV ACCESS - - PIV -Right IJ placed 10/11/2021 DVT PROPHYLAXIS - - HEPARIN 5000 units sub q q12 Patient DNR, but okay for intubation as noted above. Prognosis guarded. CRITICAL CARE TIME - I have personally spent 37 minutes of critical care time in the direct management of this patient. This is a life/limb threatening event. This includes time spent evaluating patient, direct bedside care, chart review, placing orders, interpretation of diagnostic studies, discussion with consultants, patient, and family members, as well as other required patient management activities. This time is exclusive of all separately billable procedures, and teaching time and separate from and in addition to any other critical care service time. (3) Hypoxemic respiratory failure, chronic: (4) Acute hypotension: (5) Lumbar disc herniation with radiculopathy: (6) Rheumatoid arthritis: (7) Chronic pain syndrome: (8) Hypothyroidism: (9) T2DM (type 2 diabetes mellitus): Admission and Anticipated Discharge Date Admission Date: October 08, 2021 Subjective Patient seen and examined. Is commands intermittently on sedation with Versed and fentanyl. No significant events overnight. Continues to have profuse diarrhea. Review of Systems Review of Systems: All systems reviewed & are unremarkable except as noted in HPI & below Physical Exam Constitutional: Chronically ill-appearing male who is intubated and sedated Eyes: PERRL, conjunctivae normal, anicteric sclerae ENMT: external ear and nose normal, oropharynx normal Neck: trachea midline, no thyromegaly Respiratory: Diminished lung sounds bilaterally. No increased work of breathing. Cardiovascular: RRR, no murmur, no edema Gastrointestinal (Abdomen): normal bowel sounds, soft, nontender, no hepatosplenomegaly Musculoskeletal: no cyanosis or clubbing, extremities motor strength 5/5 Skin: no rashes, warm and dry Neurologic: PERRL, EOMI, accommodation nl, no face palsy, no dysarthria Psychiatric: Unable to assess as he is currently intubated Results & Data Results & Data ([facility]) Vital Signs (Past 12 Hours) Vital Signs Temp Pulse Pulse Resp BP Pulse Ox 10/20/21 07:22 78 25 H 90 10/20/21 06:00 72 24 88 L 10/20/21 05:00 92 H 24 92 10/20/21 04:25 64 28 H 93 10/20/21 04:00 37.4 C 75 24 130/49 L 91 10/20/21 03:00 62 24 92 10/20/21 02:00 37.4 C 74 24 92 10/20/21 01:00 66 24 98 10/20/21 00:44 68 24 93 10/20/21 00:00 36.9 C 61 24 138/54 L 92 10/19/21 23:01 67 24 90 10/19/21 23:00 63 21 92 Coding Level of Care Code Critical Care 1st 30-74 mins Diagnoses MRSA pneumonia J15.212 Pneumonia J18.9 Laterality: left Lung location: upper lobe of lung Pneumonia type: due to unspecified organism Hypoxemic respiratory failure, chronic J96.11 Acute hypotension I95.9 Lumbar disc herniation with radiculopathy M51.16 Rheumatoid arthritis M06.9 Chronic pain syndrome G89.4 Hypothyroidism E03.9 T2DM (type 2 diabetes mellitus) E11.9 Time Spent (min) 37 (1) Pneumonia Laterality: left Lung location: upper lobe of lung Pneumonia type: due to unspecified organism Qualified Code(s): J18.9 - Pneumonia, unspecified organism
[2021-10-20] MEDS: dexMEDEtomidine 200 MCG/50 ML BAG IV SCH ×2 (10:57→17:18)
--- NOTE | 2021-10-20 12:18 | Pharmacy Report ---
Pharmacy Glycemic Short Note 2 - Date of Service October 20, 2021 - Glycemic Short BSG Results (Last 24 hours): 10/19/21 10/19/21 10/19/21 12:12 17:01 20:14 Glucose POC Glucose POC Glucose (other) 158 H 174 H 118 H 10/20/21 10/20/21 10/20/21 03:51 05:10 07:57 Glucose 91 POC Glucose 137 H POC Glucose (other) 117 H 10/20/21 11:44 Glucose POC Glucose 171 H POC Glucose (other) OUTPATIENT ANTIDIABETIC REGIMEN: * N/a * HbA1c = 6.0% (10/09/21) ASSESSMENT: 10/20 * BSGs stable, all < 180 mg/dL in the past 48 hours. Sedation changed to precedex in preparation of extubation. * Prednisone being tapered, will go down to 20 mg tomorrow. * Will continue current novolog parameters for now 10/17 * Stressors stable. Prednisone starts to taper tomorrow. * BSG's ranged 128-205 mg/dL after dose adjustment yesterday, with only one BSG > 180 mg/dL. * Will keep same regimen for now. May need to adjust tomorrow with steroid taper 10/16 * Tubefeeds titrating up. Two recent BSG's below goal. Prednisone 40 mg daily continues, with anticipated next step in taper on 10/18. * Basal insulin still not needed * Novolog regimen tightened last night in response to two BSG's >180 mg/dL. Will loosen CHO ratio now with two more recent BSG's below goal for ICU status patient (140-180 mg/dL). Of note - anticipate that highest BSG's will be around 1200 or 1800 as this is when effects of prednisone will peak. May consider adjusting CHO ratio at certain checks per day if this trend continues * OK to keep goal range in Novolog *order* at 110-140 mg/dL despite actual target goal range 140-180 mg/dL as this provides a bit of "basal" insulin that will be "held" for any BSG < 140 mg/dL 10/15 * Remains critically ill, intubated/sedated requiring pressor support and receiving IV antibiotics. IV methylpred transitioned to PO prednisone taper today. Titrating tube feeds to goal. * BSGs have remained within goal the last 24h with q4h Novolog. Novolog parameters tightened today to 30/10 given BSGs rising with tube feed titration (BSGs: 174-163-192). May need further tightened this evening once titrated to goal. PLAN FOR INPATIENT GLYCEMIC CONTROL: * Basal - continue to hold Lantus * Novolog Q4 hr with tubefeeds * Goal range 110-140 mg/dL * Correction factor: 25 mg/dL/unit * Carb ratio: 10 g CHO/unit
--- NOTE | 2021-10-20 13:15 | Palliative Care Consultation ---
Date of Consultation October 20, 2021 Assessment & Plan (1) Palliative care encounter: I did talk with Mr. Park who indicates that he remembers having a discussion about intubation previously. He confirms that he did want to be intubated at that time. We talked about attempt to wean vent support for extubation as well as concerns about whether he would need to have reintubation if he did not do well. He indicates that he would want the tube reinserted. I spoke with his on the phone. She tells me that over the weekend, she asked him the same question and that he indicated that he would want reintubation at that time also. She was concerned about whether he really understood but feels that given his similar reponse today and things that he has said in the past, reintubation would be his wish. She tells me that they have discussed CPR in the past and he has indicated that he would not want that, also consistent with what he said to Dr. Mota in the past. I talk with Mrs. Park about clarifying whether there were any limitations to care if he should be reintubat ed. 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 His priority is to spend time with his family, particularly his grandchildren. They have a granddaughter who lives with them who he is very close to. Addendum [id number] Mr. Park was extubated earlier this afternoon. He is awake and able to converse. He has some confusion, asking when he came here from [facility]. But knows the date that he was told earlier today and knows that he missed his granddaughter's birthday. He confirms that he did want intubation and tells me that he is not ready to . "If you need to do that again, do it". He says that he wants to live for his and grandchildren. I asked him what living meant to him and he tells me that spending time with them is the most important. He tells me that even though he would want reintubation to give him a chance to get better, if he wasn't going to get better or end up permanently on the breathing machine in a fdc, he would not want that. He tells me that he would like to talk with his before discussing further. Palliative care will follow. (2) Respiratory failure: Chronicity: acute Respiratory failure complication: hypoxia Qualified Code(s): J96.01 - Acute respiratory failure with hypoxia (3) MRSA pneumonia: (4) Acute exacerbation of chronic obstructive pulmonary disease: History of Present Illness Reason for Consultation: goals of care Requesting Physician: Dr. Alejandra Attending Physician: Bhargav Downing DO History of Present Illness 60 yo gentleman with history of COPD and bullous emphysema. He has chronic respiratory failure and is O2 dependent at baseline. He was admitted with acute on chronic respiratory failure, MRSA pneumonia and sepsis. He has been intubated for over a week with weaning trial in progress. He has hypotension with pressor support and is being converted from fentanyl to precedex sedation. He is responding at times and has been able to follow simple commands. We have been consulted to assist with goals of care. At the time of my visit, Mr. Park was responsive and answered yes or no questions appropriately. He denied pain or discomfort. Allergies Allergy/AdvReac Type Severity Reaction Status Date / Time pregabalin Allergy Severe ANAPHYLAXIS Verified 10/08/21 21:25 Home Medications Medication Instructions Recorded Confirmed Type ipratropium 0.5 mg-albuterol 3 mg 3 ml INHALATION Q6H PRN #3 ml 05/19/19 10/08/21 Rx (2.5 mg base)/3 mL nebulization soln fluticasone furoate 100 1 inh INHALATION QAM #60 ea 04/29/20 10/08/21 Rx mcg-vilanterol 25 mcg/dose inhalation powder (Breo Ellipta) tiotropium bromide 18 mcg capsule 1 cap INHALATION QAM #30 puffs 07/02/20 10/08/21 Rx with inhalation device (Spiriva with HandiHaler) venlafaxine 150 mg 150 mg PO QAM #90 cap 09/27/20 10/08/21 Rx capsule,extended release 24 hr aspirin 81 mg tablet,delayed 81 mg PO QAM 05/19/21 10/08/21 History release cholecalciferol (vitamin D3) 125 5,000 unit PO QAM 05/19/21 10/08/21 History mcg (5,000 unit) tablet folic acid 1 mg tablet 1 mg PO QAM 05/19/21 10/08/21 History gabapentin 600 mg tablet 600 mg PO QID #120 tab 06/02/21 10/08/21 Rx levothyroxine 25 mcg tablet 25 mcg PO QAM #90 tab 06/27/21 10/08/21 Rx gabapentin 100 mg capsule 100 mg PO QID #360 cap 06/30/21 10/08/21 Rx pantoprazole 40 mg tablet,delayed 40 mg PO QPM #90 tab 06/30/21 10/08/21 Rx release sennosides 8.6 mg tablet 8.6 mg PO BID #60 tab 07/01/21 10/08/21 Rx docusate sodium 100 mg capsule 100 mg PO BID #180 cap 07/24/21 10/08/21 Rx rosuvastatin 5 mg tablet (Crestor) 5 mg PO PM #90 tab 07/24/21 10/08/21 Rx carbamazepine 100 mg chewable 100 mg PO BID #60 tab 08/19/21 10/08/21 Rx tablet ferrous sulfate 325 mg (65 mg 325 mg PO BID #60 tab 08/29/21 10/08/21 Rx iron) tablet methotrexate sodium 2.5 mg tablet 15 mg PO WK 30 Days #180 tab 09/22/21 10/08/21 Rx oxycodone 10 mg tablet 10 mg PO TID PRN #90 tab 09/22/21 10/08/21 Rx tamsulosin 0.4 mg capsule 0.4 mg PO PM #90 cap 09/22/21 10/08/21 Rx mirtazapine 30 mg tablet 30 mg PO HS #90 tab 09/26/21 10/08/21 Rx venlafaxine 75 mg capsule,extended 75 mg PO QAM #90 cap 09/26/21 10/08/21 Rx release 24 hr buspirone 15 mg tablet 15 mg PO TID #90 tab 10/20/21 Rx Patient History Medical History Acid reflux Stable and controlled per patient Anemia No recent blood transfusion or iron infusions Anxiety Benign prostate hyperplasia Charcot's joint of foot, non-diabetic Chronic kidney disease, stage III (moderate) Chronic obstructive pulmonary disease Well controlled per pt No oxygen since 05/2019 Chronic pain syndrome Multifactorial in nature- LDD, neuropathy, OA, RA Cirrhosis, alcoholic HX OF (LAST ETOH 10 YEARS AGO) Follows with GI routinely Depression Flexion deformity of hand Unable to fully extend 4th and 5th digits of left hand History of stroke 2012 - NO PHYSICAL RESIDUAL EFFECTS, MEMORY PROBLEM FOLLOWING - HAS RECOVERED SOME BUT NOT ENTIRELY Hypothyroidism Hypoxemic respiratory failure, chronic resolved per pt Lumbar disc herniation with radiculopathy MRSA pneumonia Neuropathy, alcoholic Fair control On gabapentin Peripheral arterial disease Stable per 03/2021 PCP note- no significant blockage with LE angiogram in 12/2020 Portal hypertension Rheumatoid arthritis Follows with rheum - [facility] T2DM (type 2 diabetes mellitus) NIDDM > diet controlled Glucose stable Surgical History H/O hand surgery (02/07/21) R index, middle, ring and small finger MCP joint silicone implant arthroplasties w/ extensor tendon centralization H/O oral surgery ALL TEETH OUT History of esophagogastroduodenoscopy (EGD) Hx of surgical procedure (12/2020) Angio Extremity > bilat legs Hx of umbilical hernia repair 11/14/12 S/P epidural steroid injection Status post left hip replacement (01/2018) Status post right hip replacement (10/2018) Status post-operative repair of closed fracture of left hip (2012) IM nail placement L hip Family History Father Aneurysm Hx of CABG Family history of cardiac pacemaker Coronary heart disease Cardiac pacemaker Mother Family history of cardiac pacemaker Diabetes Hypertension Cardiac pacemaker Brother Diabetes Other Family history non-contributory Denies family history of Colon cancer Ovarian cancer Prostate cancer Myocardial infarction Breast cancer Social History Smoking Status: Current every day smoker Tobacco Type: Cigarettes Age Started Using Tobacco: 13; packs per day: 0.25; Cigarettes Per Day: 10; Second Hand Exposure: No; Hx Alcohol Use: Yes Alcohol type: beer Hx Substance Use: Yes Last Used Substance: Unknown Substance Use Type Other:: couple times a week Preferred Language: Cymro Communication Ability: Effective Visual Impairment: Limited Hearing Ability: Normal Fitness And Wellness Manager Required: No Beliefs That Will Affect Care: None marital status: marital status details: 1 son, 3 daughters Current Living Situation: Spouse Current Living Situation Comment: spouse, 1 daughter, grandson every other weekend current occupational status: unemployed and disabled How many Children do You have: 5 Feels Safe at Home: Yes Childhood Exposure to Second-Hand Smoke: Yes caffeine: Yes during the past year weight has: remained stable Dental Care, Regularly: No Physical Activity Frequency: Does not Exercise Seatbelt Use: always Sunscreen Use: Yes Assistive Devices: Cane, Denture - Upper, Denture - Lower, Glasses, Nebulizer, Walker and Wheelchair Review of Systems Review of Systems: Unobtainable due to endotracheal tube Physical Exam Constitutional: + mechanically ventilated ENMT: copious secretions in ET tube Respiratory: no labored breathing Cardiovascular: Rate/Rhythm: regular rate and regular rhythm Musculoskeletal: Extremities: + muscle atrophy Skin: warm and dry Neurologic: arousable, answers questions appropriately Genitourinary: Pool catheter Results [facility] ([facility]) Vital Signs (Past 12 Hours) Vital Signs Temp Pulse Resp BP Pulse Ox 10/20/21 11:32 80 26 H 96 10/20/21 07:22 78 25 H 90 10/20/21 06:00 72 24 88 L 10/20/21 05:00 92 H 24 92 10/20/21 04:25 64 28 H 93 10/20/21 04:00 99.3 F 75 24 130/49 L 91 10/20/21 03:00 62 24 92 10/20/21 02:00 99.3 F 74 24 92 10/20/21 01:00 66 24 98 PG Care Time/CCT Total # of Minutes Spent Total Time Spent: 90 Total Time Spent with Patient: Total time spent is greater than 50% in coordination of care (as documented) at patient's floor/unit and/or counseling patient: goals of care, patient and family education and support Coding Level of Care Code 61250 Initial Inpt Care Lvl 3 Diagnoses Palliative care encounter Z51.5 Respiratory failure J96.01 Chronicity: acute Respiratory failure complication: hypoxia MRSA pneumonia J15.212 Acute exacerbation of chronic obstructive pulmonary disease J44.1
[2021-10-20] MEDS: busPIRone 7.5 MG TAB PO SCH (21:43)
[2021-10-20] MEDS: ROSUVASTATIN CALCIUM 5 MG TAB PO SCH (22:02)
[2021-10-21] MEDS: ALBUT/IPRATROP 3MG/0.5MG NEB 3 ML VIAL INH SCH ×4 (01:38→20:29)
[2021-10-21] MEDS: CLINDAMYCIN 600 MG in DEXTROSE 5% 50 ML IV SCH ×3 (02:18→17:06)
[2021-10-21] MEDS: TUBE FEEDING WATER FLUSH OG SCH (02:29)
[2021-10-21] MEDS: INSULIN ASPART PER UNIT SC SCH ×5 (02:29→17:14)
[2021-10-21] MEDS: dexMEDEtomidine 200 MCG/50 ML BAG IV SCH ×2 (04:21→07:15)
[2021-10-21 05:07] LABS: Hematocrit (blood only) 23.1 % (42-52); Hemoglobin 7.5 g/dL (14.0-18.0); Mean Corpuscular Hemoglobin 31.5 pg (25-34); Mean Corpuscular Hgb Conc 32.5 g/dL (32-36); Mean Corpuscular Volume 97.1 fL (80-100); Mean Platelet Volume 9.3 fL (7.4-10.4); Platelet Count 507 K/uL (130-400); RDW Standard Deviation 62.9 fL (36.4-46.3); Red Blood Count 2.38 M/uL (4.7-6.1); White Blood Count 10.15 K/uL (4.8-10.8)
[2021-10-21] MEDS: LEVOTHYROXINE SODIUM 25 MCG TABLET GT SCH (05:08)
[2021-10-21 05:18] LABS: BUN Creatinine Ratio 20.8 (10-20); Calcium 8.3 mg/dl (8.5-10.1); Creatinine Clr Calc Pharmacy 104.5 ml/min; Est GFR (African American) 117.5 ml/min; Est GFR (Non-African American) 101.4 ml/min; Magnesium 2.1 mg/dl (1.7-2.4); Phosphorus 4.4 mg/dl (2.5-4.9); Potassium 4.1 mmol/L (3.5-5.1)
[2021-10-21 06:10] LABS: ALC (manual) 0.71 K/uL (1.2-3.4); ANC (manual) 8.12 K/uL (1.4-6.5); Lymphocytes # (manual) 0.71 K/uL (1.2-3.4); Metamyelocytes # (manual) 0.44 K/uL (0-0); Metamyelocytes % (manual) 4.3 %; Monocytes # (manual) 0.88 K/uL (0.11-0.59); Monocytes % (manual) 8.7 %; Neutrophils # (manual) 8.12 K/uL (1.4-6.5); Target Cells 1+
--- NOTE | 2021-10-21 06:15 | Hospitalist Progress Note ---
Date of Service October 21, 2021 Assessment & Plan (1) Pneumonia: Plan: 60-year-old male past medical history significant for severe bullous emphysema, COPD, and rheumatoid arthritis on MTX presenting to the hospital due to acute on chronic hypoxemic and hypercapnic respiratory failure. The cause of his acute decompensation is thought to be a multifocal community-acquired PNA and subsequent COPD exacerbation. He was admitted directly to the ICU given requirement for vasoactive medications and mechanical ventilation. On 10/20, patient was extubated; however, given concerns for increased WOB and O2 requirement, reintubation and mechanical ventilation was again required in the child custody evaluator of 10/21 -- consistent with family/patient goals. Acute on chronic hypoxemic and hypercapnic respiratory failure -- extubated 10/20 - secondary to multifocal PNA + acute exacerbation of COPD - MRSA+ from sputum culture - s/p bronchoscopy 10/11, 10/14, 10/16 and 10/18 with aspiration of L upper lobe mucous plug - s/p extubation on 10/20 -- doing well on OxyMask since that time - SpO2 goal 88-92% - Palliative care consulted while in ICU: would like to be re-intubated if needed - Mucociliary clearance: When appropriate - flutter valve, percussion therapy, add Mucinex Sepsis secondary to MRSA PNA - SIRS and SOFA met on admission in presence of elevated PCT, ESR, CRP - Source: Chest CT showing multifocal PNA - sputum, bronch cultures growing MRSA - acid fast, fungal smears NEGATIVE - initial and repeat BCX - NGTD - Resp Biofire panel neg - Quantiferon Gold - Indeterminate ; TB antigens negative ; unlikely TB per ID - ID consulted, reported 10/13: Secondary to MRSA PNA. Clindamycin until 10/27. Normocytic Anemia, Leukopenia - Progressive normocytic anemia appreciated on admission (10.7 --> ~8) - Likely some contribution from chronic disease / MTX (as admission level was 10.7) - Suspect drop is mostly d/t phlebotomy, dilution, and recovering nutrition status in critical illness - No e/o active bleeding; noted that he's on heparin for DVT ppx - Check iron labs, B12, folate w/ AM labs - Trend CBC - Continue iron supplementation in the interim -- bowel regimen prn Watery Stools - Multiple watery stools observed 10/19 onward, in setting of ongoing clindamycin - Check C. diff studies -- negative - Improving. Monitor. Hypotension -- resolving, now with softer pressures; off pressors - Multifactorial - sedation + sepsis - Midodrine continues -- ween as able - Continue prednisone taper (random cortisol normal) - Maintain MAP > 65 Hyponatremia -- resolved - Appears clinically euvolemic on exam - Initially downtrending Na to ~118 through the AM of 10/14 with serum/urine labs c/w SIADH, likely secondary to PNA/critical illness/Linezolid - Monitor on BMP COPD - likely exacerbation contributing to current clinical state due to multifocal PNA - Continue mucociliary clearance: Mucinex, chest PT, DuoNebs; s/p bronch x 4 YOON on CKD: resolved - Baseline Cr ~1.0 Alcohol use disorder in remission, cirrhosis: - no known varices - complication of neuropathy; continue home dose gabapentin PAD - continue home dose statin + aspirin Depression/Anxiety - Resumed venlafaxine, buspirone while intubated Rheumatoid arthritis: - Hold MTX in the setting of sepsis secondary to bacterial infection. Chronic pain, Idiopathic Polyneuropathy - Resumed gabapentin, carbamazepine - Hold home opioid DM2: - A1c 6.0 - short acting insulin ordered with carb ratio - carb consistent diet when not NPO - ICU hyperglycemia protocol Hypothyroidism - continue home dose levothyroxine GERD: - PPI while on steroids. CODE STATUS: Conditional code -- no CPR, ok for intubation FEN: CELL GENETICIST consulted. Bedside swallow study, trial clears thereafter, appreciate CELL GENETICIST recommendations otherwise. DVT prophylaxis: Heparin 5000 units SQ every 12 hours Dispo: PCU (2) Acute exacerbation of chronic obstructive pulmonary disease: (3) Respiratory failure: (4) History of alcohol use: (5) Rheumatoid arthritis: (6) Cirrhosis, alcoholic: (7) T2DM (type 2 diabetes mellitus): Admission and Anticipated Discharge Date Admission Date: October 08, 2021 Supervising Physician Co-Signing Physician Notes I personally examined the patient and verified all hinojosa points of history and exam, discussed case, and agree with decision making with Dr Tejada feeling better - mostly focused on wanting to get out of bed and get stronger vitals noted nad heent nc at mmm breathing unlabored no accessory musccles good effort skin no rashes no pallor or icterus 98-100% with oxymask - not really even all that positioned on his face. neuro without focal deficits noted severe MRSA pneumonia/sepsis and ventilator dependant respiratory failure - doing amazingly well. continue current care, supportive care, PT/OT eval and treat otherwise as above, DVT proph - heparin SQ Subjective Extubated yesterday AM - doing much better on OxyMask (not reintubated as reflected in vitals). Feeling like he's getting strength back and wants to try more activity. Says breathing feels mostly comfortable. No pain. No nausea or vomiting. Endorsed loose stools but no feeling of diarrhea. Eager to trial eating/drinking. Review of Systems Review of Systems: as per HPI Physical Exam Physical Exam: General: 60-year old male who is alert, oriented, and appears in no acute distress. HEENT: NCAT. - Eyes - Sclera are white, anicteric, and without injection. - Mouth - MMM - Neck - supple, no appreciable JVD Cardiac: Normal rate and regular rhythm; S1 and S2 present with no murmurs, rubs, or gallops. Pulmonary: Mildly increased respiratory effort with symmetric expansion of the chest. No use of accessory muscles. Lung sounds diminished, rhonchi appreciated L>R Abdominal: Normoactive bowel sounds. Abdomen was soft, mildly distended, and non-tender to palpation. Extremities: Upper and lower extremities are warm and well perfused. No peripheral edema in the lower extremities bilaterally Results & Data Results & Data ([facility]) Vital Signs (Past 12 Hours) Vital Signs Pulse Resp BP Pulse Ox 10/21/21 04:00 74 99/42 L 10/21/21 00:00 74 26 H 99/42 L 92 10/20/21 23:00 69 26 H 99 10/20/21 22:00 79 30 H 93 10/20/21 21:33 82 29 H 120/58 L 94 10/20/21 21:00 95 H 30 H 87 L 10/20/21 20:00 85 28 H 121/43 L 93 10/20/21 19:00 71 28 H 98 Resident Activity Tracking Resident Involvement: Resident Care Provided Care Provided: Adult Hospital Medicine (1) Respiratory failure Chronicity: acute Respiratory failure complication: hypoxia Qualified Code(s): J96.01 - Acute respiratory failure with hypoxia (2) Pneumonia Laterality: left Lung location: upper lobe of lung Pneumonia type: due to unspecified organism Qualified Code(s): J18.9 - Pneumonia, unspecified organism
--- NOTE | 2021-10-21 09:03 | Critical Care Progress Note ---
Date of Service October 21, 2021 Assessment & Plan (1) MRSA pneumonia: (2) Pneumonia: Plan: Reason Critically Ill: 60-year-old male with a past medical history of severe bullous emphysema and COPD presenting to the hospital due to acute pneumonia and combined acute on chronic hypoxemic and hypercapnic respiratory failure Neuro - Idiopathic polyneuropathy, chronic pain syndrome, Depression, metabolic encephalopathy CAM ICU: Negative - No focal deficits - gabapentin - carbamazepine -BuSpar -We will obtain speech therapy, physical therapy and Occupational Therapy consultation. Cardiac - HYPOTENSION, SEPSIS, ELEVATED TROPONIN -Maintain mean arterial pressure above 65 Respiratory - Multifocal Bacterial PNA greatest left upper lobe, COPD bullous emphysema, chronic oxygen therapy, chronic respiratory failure - Acute on chronic respiratory failure secondary to pneumonia- -patient with severe bullous emphysema bilaterally. Left upper lobe bulla appears to be infected with an air-fluid level. Currently on a prednisone taper. GI - No acute needs- HX cirrhosis, GERD -Initiate trickle tube feeds today. - PPI while on steroids - No known Varices RENAL/LYTES - YOON type II, HYPOMAG -ICU electrolyte protocol. Monitor urine output closely. We will give 2 doses of acetazolamide today given the evidence of metabolic alkalosis. MSK: L4-L5 herniation with radiculopathy ENDO - TYPE II DM, HYPOTHYROID - ICU glycemic protocol- goal < 180mg/dl - Continue Synthroid -TSH within normal limits. HEME - Leukopenia, anemia. RA - leukopenia likely secondary to sepsis - No acute blood loss noted- recent colonoscopy noted hemorrhoids, and rectal polyp - Continue FESO4 tabs MCV normal - - HOLD methotrexate ID -MRSA pneumonia -Continue clindamycin as per infectious disease recommendation. Patient with profuse watery stools. We will obtain a C. difficile toxin and gene. LINES/IV ACCESS - - PIV -Right IJ placed 10/11/2021 DVT PROPHYLAXIS - - HEPARIN 5000 units sub q q12 Patient DNR, but okay for intubation as noted above. Prognosis guarded. Stable for downgrade today. Discussed with hospitalist. (3) Hypoxemic respiratory failure, chronic: (4) Acute hypotension: (5) Lumbar disc herniation with radiculopathy: (6) Rheumatoid arthritis: (7) Chronic pain syndrome: (8) Hypothyroidism: (9) T2DM (type 2 diabetes mellitus): Admission and Anticipated Discharge Date Admission Date: October 08, 2021 Subjective Patient extubated and doing well. No significant overnight events. Remains on nasal cannula. Remains off pressors overnight. Review of Systems Review of Systems: All systems reviewed & are unremarkable except as noted in HPI & below Physical Exam Constitutional: Chronically ill-appearing male who is playing in bed on nasal cannula Eyes: PERRL, conjunctivae normal, anicteric sclerae ENMT: external ear and nose normal, oropharynx normal Neck: trachea midline, no thyromegaly Respiratory: Diminished lung sounds bilaterally. No increased work of breathing. Cardiovascular: RRR, no murmur, no edema Gastrointestinal (Abdomen): normal bowel sounds, soft, nontender, no hepatosplenomegaly Musculoskeletal: no cyanosis or clubbing, extremities motor strength 5/5 Skin: no rashes, warm and dry Neurologic: PERRL, EOMI, accommodation nl, no face palsy, no dysarthria Psychiatric: Appears tired. Results & Data Results & Data ([facility]) Vital Signs (Past 12 Hours) Vital Signs Temp Pulse Pulse Resp BP Pulse Ox 10/21/21 07:36 94 H 19 90 10/21/21 06:48 36.7 C 10/21/21 06:00 89 20 88 L 10/21/21 05:00 89 29 H 92 10/21/21 04:00 67 25 H 99/42 L 100 10/21/21 03:00 73 22 96 10/21/21 02:00 71 25 H 88 L 10/21/21 01:00 75 28 H 97 10/21/21 00:00 36.5 C 74 26 H 99/42 L 92 10/20/21 23:00 69 26 H 99 10/20/21 22:00 79 30 H 93 10/20/21 21:33 82 29 H 120/58 L 94 Coding Level of Care Code 51142 Subseq Hosp Care Lvl 3 Diagnoses MRSA pneumonia J15.212 Pneumonia J18.9 Laterality: left Lung location: upper lobe of lung Pneumonia type: due to unspecified organism Hypoxemic respiratory failure, chronic J96.11 Acute hypotension I95.9 Lumbar disc herniation with radiculopathy M51.16 Rheumatoid arthritis M06.9 Chronic pain syndrome G89.4 Hypothyroidism E03.9 T2DM (type 2 diabetes mellitus) E11.9 (1) Pneumonia Laterality: left Lung location: upper lobe of lung Pneumonia type: due to unspecified organism Qualified Code(s): J18.9 - Pneumonia, unspecified organism
[2021-10-21] MEDS ORDERED: ALBUT/IPRATROP 3MG/0.5MG NEB 3 ML VIAL INH PRN (09:08)
[2021-10-21] MEDS: PANTOprazole 40 MG in SYRINGE 0 ML IV SCH (09:26)
[2021-10-21] MEDS: MIDODRINE HCL 2.5 MG TAB PO SCH ×3 (09:28→17:06)
[2021-10-21] MEDS: ASPIRIN 81 MG CHEW PO SCH (09:29)
[2021-10-21] MEDS: busPIRone 15 MG TAB GT SCH (09:29)
[2021-10-21] MEDS: HEPARIN SOD 5,000 UNIT/0.5 ML VIAL SQ SCH ×2 (09:30→20:19)
[2021-10-21] MEDS: MAGNESIUM OXIDE 400 MG TAB PO SCH ×2 (09:30→20:19)
[2021-10-21] MEDS: VENLAFAXINE HCL 50 MG TAB PO SCH ×3 (09:33→20:24)
[2021-10-21] MEDS: predniSONE 20 MG TAB PO SCH (09:33)
[2021-10-21] MEDS: UMECLIDINIUM BROMIDE 62.5MCG/BLISTER 7 PUFFS/INHALER INH SCH (09:33)
[2021-10-21] MEDS: acetaZOLAMIDE 250 MG in DEXTROSE 5% 100 ML IV SCH ×2 (09:34→20:06)
[2021-10-21] MEDS: carBAMazepine 100 MG CHEW TAB PO SCH ×2 (09:46→20:16)
[2021-10-21] MEDS: FERROUS SULFATE 325 MG TAB PO SCH ×2 (09:55→20:16)
[2021-10-21] MEDS: CHOLECALCIFEROL 5,000 UNITS 125 MCG TAB PO SCH (09:55)
[2021-10-21] MEDS: MULTI VIT W/MINERALS LIQUID 15 ML UDP NG SCH (09:55)
[2021-10-21] MEDS: GABAPENTIN 250 MG/5 ML 470 ML BTL GT SCH ×2 (09:55→12:07)
[2021-10-21] MEDS: FOLIC ACID 1 MG TAB PO SCH (09:55)
[2021-10-21] MEDS: busPIRone 15 MG TAB PO SCH ×2 (14:38→20:15)
--- NOTE | 2021-10-21 15:10 | Billing Data ---
Date of Service October 21, 2021 Coding Level of Care Code 32980 Subseq Hosp Care Lvl 3
[2021-10-21] MEDS: GABAPENTIN 600 MG TAB PO SCH ×2 (17:06→20:18)
[2021-10-21] MEDS: GABAPENTIN 100 MG CAP PO SCH ×2 (17:06→20:17)
[2021-10-21] MEDS ORDERED: SODIUM CHLORIDE 0.9% 1000ML 250 ML IV ONE (18:11)
[2021-10-21] MEDS ORDERED: SODIUM CHLORIDE 0.9% 1000ML 1,000 ML IV SCH (18:15)
[2021-10-21] MEDS: busPIRone 7.5 MG TAB PO SCH (20:15)
[2021-10-21] MEDS: guaiFENesin 600 MG TABCR PO SCH (20:18)
[2021-10-21] MEDS: PANTOprazole 40 MG TAB PO SCH (20:22)
[2021-10-21] MEDS: ROSUVASTATIN CALCIUM 5 MG TAB PO SCH (20:24)
[2021-10-21] MEDS: TAMSULOSIN HCL 0.4 MG CAP PO SCH (23:12)
[2021-10-22] MEDS: INSULIN ASPART PER UNIT SC SCH ×5 (00:40→20:48)
[2021-10-22] MEDS: ALBUT/IPRATROP 3MG/0.5MG NEB 3 ML VIAL INH SCH ×4 (00:42→20:11)
[2021-10-22] MEDS: CLINDAMYCIN 600 MG in DEXTROSE 5% 50 ML IV SCH ×3 (02:04→18:12)
[2021-10-22 05:46] LABS: Basophils # (auto) 0.01 K/uL (0-0.2); Basophils % (auto) 0.1 %; Eosinophils # (auto) 0.03 K/uL (0-0.5); Eosinophils % (auto) 0.3 %; Hematocrit (blood only) 21.1 % (42-52); Immature Granulocytes # (auto) 0.17 K/uL (0.00-0.02); Immature Granulocytes % (auto) 1.8 %; Lymphocytes # (auto) 0.71 K/uL (1.2-3.4); Lymphocytes % (auto) 7.6 %; Mean Corpuscular Hemoglobin 32.3 pg (25-34); Mean Corpuscular Hgb Conc 33.2 g/dL (32-36); Mean Corpuscular Volume 97.2 fL (80-100); Mean Platelet Volume 8.8 fL (7.4-10.4); Monocytes # (auto) 0.66 K/uL (0.11-0.59); Monocytes % (auto) 7.1 %; Neutrophils # (auto) 7.74 K/uL (1.4-6.5); Neutrophils % (auto) 83.1 %; Platelet Count 488 K/uL (130-400); RDW Standard Deviation 63.3 fL (36.4-46.3); Red Blood Count 2.17 M/uL (4.7-6.1); White Blood Count 9.32 K/uL (4.8-10.8)
--- NOTE | 2021-10-22 05:58 | Hospitalist Progress Note ---
Date of Service October 22, 2021 Assessment & Plan (1) Pneumonia: Plan: 60-year-old male past medical history significant for severe bullous emphysema, COPD, and rheumatoid arthritis on MTX presenting to the hospital due to acute on chronic hypoxemic and hypercapnic respiratory failure. The cause of his acute decompensation is thought to be a multifocal community-acquired PNA and subsequent COPD exacerbation. He was admitted directly to the ICU given requirement for vasoactive medications and mechanical ventilation. On 10/20, patient was extubated and has since made interval improvements on OxyMask. Acute on chronic hypoxemic and hypercapnic respiratory failure -- extubated 10/20 - secondary to multifocal PNA + acute exacerbation of COPD - MRSA+ from sputum culture - s/p bronchoscopy 10/11, 10/14, 10/16 and 10/18; s/p extubation 10/20 - Ween OxyMask as tolerated, doing well - SpO2 goal 88-92% - Palliative care consulted while in ICU: would like to be re-intubated if needed - Mucociliary clearance: flutter valve, percussion therapy, Mucinex Sepsis secondary to MRSA PNA - SIRS and SOFA met on admission in presence of elevated PCT, ESR, CRP - Source: Chest CT showing multifocal PNA - sputum, bronch cultures growing MRSA - acid fast, fungal smears NEGATIVE - initial and repeat BCX - NGTD (final) - Resp Biofire panel neg - Quantiferon Gold - Indeterminate ; TB antigens negative ; unlikely TB per ID - ID consulted, reported 10/13: Secondary to MRSA PNA. Clindamycin until 10/27. Normocytic Anemia - Progressive normocytic anemia appreciated on admission (10.7 --> ~7) - Likely contribution from chronic disease / MTX (as admission level was 10.7) - Suspect drop is mostly d/t phlebotomy, dilution, and recovering nutrition status in critical illness - No e/o active bleeding, pressures softer but no instability; noted that he's on heparin for DVT ppx - Check iron labs, B12, folate w/ AM labs -- all relatively normal, though somewhat convoluted by inflammatory state - Trend CBC -- recheck at 1200 given Hgb 7 this AM (after getting IVF) - Continue iron supplementation in the interim Watery Stools - Multiple watery stools observed 10/19 onward, in setting of ongoing clindamycin - Check C. diff studies -- negative - Improving. Likely secondary to ABX. Use Probiotic. Monitor. Hypotension -- resolving, now with softer pressures; off pressors - Multifactorial - previously secondary to sedation + sepsis - Suspect softer pressures are now more d/t hypovolemia, reduced PO intake; lower suspicion anemia is related - Midodrine continues -- ween as able - Add NSS @ 80cc/hr x 500cc (received total of 750cc overnight 10/21) -- careful hydration - Continue prednisone taper (random cortisol normal) - Maintain MAP > 65 Hyponatremia -- resolved - Appears clinically euvolemic on exam - Initially downtrending Na to ~118 through the AM of 10/14 with serum/urine labs c/w SIADH, likely secondary to PNA/critical illness/Linezolid - Monitor on BMP COPD - likely exacerbation contributing to current clinical state due to multifocal PNA - Continue mucociliary clearance: Mucinex, chest PT, DuoNebs; s/p bronch x 4 YOON on CKD: resolved - Baseline Cr ~1.0 Alcohol use disorder in remission, cirrhosis: - no known varices - complication of neuropathy; continue home dose gabapentin PAD - continue home dose statin + aspirin Depression/Anxiety - Resumed venlafaxine, buspirone while intubated Rheumatoid arthritis: - Hold MTX in the setting of sepsis secondary to bacterial infection. Chronic pain, Idiopathic Polyneuropathy - Resumed gabapentin, carbamazepine - Hold home opioid DM2: - A1c 6.0 - short acting insulin ordered with carb ratio - carb consistent diet when not NPO - ICU hyperglycemia protocol Hypothyroidism - continue home dose levothyroxine GERD: - PPI while on steroids. CODE STATUS: Conditional code -- no CPR, ok for intubation FEN: Clear liquids. Advance when appropriate. COMPUTER NETWORK SPECIALIST consulted. DVT prophylaxis: Heparin 5000 units SQ every 12 hours Dispo: PCU (2) Acute exacerbation of chronic obstructive pulmonary disease: (3) Respiratory failure: (4) History of alcohol use: (5) Rheumatoid arthritis: (6) Cirrhosis, alcoholic: (7) T2DM (type 2 diabetes mellitus): Admission and Anticipated Discharge Date Admission Date: October 08, 2021 Supervising Physician Co-Signing Physician Notes I personally examined the patient and verified all hinojosa points of history and exam, discussed case, and agree with decision making with Dr Tejada went to see pt multiple times -sleeping each time. no new issues per nursing - just hadn't slept well. anemia noted. vitals noted resting comfortably on NC O2 no distress breathing unlabored no accessory muscles no focal neuro deficits severe MRSA pneumonia/sepsis and ventilator dependant respiratory failure - doing amazingly well. continue current care, supportive care, PT/OT eval and treat, clinda through 10/27. dispo planning based on PT/OT recs anemia - likely iatrogenic + malnutrition + dilutional - but definitely has low margin of error - follow closely, heme test stools to be safe otherwise as above, DVT proph - heparin SQ Subjective NAEO. Pressures continue to maintain on the softer side (MAPs 60-70s) with normal pulse. RR 15-20s on 4L OxyMask. Feeling really well. Eager to engage with PT more today. [place] weak yesterday, maybe a little lightheaded getting out of bed, but was first time up during his hospital stay since intubation. Denies shortness of breathsays the oxygen mask feels comfortable. No chest pain, palpitations. No chills or night sweats. No nausea or vomiting. Appetite is strong, eager to advance diet. Review of Systems Review of Systems: as per HPI Physical Exam Physical Exam: General: 60-year old male who is alert, oriented, and appears in no acute distress. HEENT: NCAT. - Eyes - Sclera are white, anicteric, and without injection. - Mouth - MMM - Neck - supple, no appreciable JVD Cardiac: Normal rate and regular rhythm; S1 and S2 present with no murmurs, rubs, or gallops. Pulmonary: Easy respiratory effort with symmetric expansion of the chest. No use of accessory muscles. Lung sounds diminished, rhonchi appreciated L>R -- relatively unchanged from yesterday Abdominal: Normoactive bowel sounds. Abdomen was soft, mildly distended, and non-tender to palpation. Extremities: Upper and lower extremities are warm and well perfused. No peripheral edema in the lower extremities bilaterally Results & Data Results & Data ([facility]) Vital Signs (Past 12 Hours) Vital Signs Temp Pulse Pulse Resp BP Pulse Ox 10/22/21 01:00 36.1 C L 89 27 H 98 10/22/21 00:45 78 15 98 10/22/21 00:00 36.1 C L 86 18 98/58 L 10/21/21 23:00 35.8 C L 86 30 H 88 L 10/21/21 22:00 81 27 H 85 L 10/21/21 21:00 56 L 16 100 10/21/21 20:30 64 15 96 10/21/21 20:00 61 22 99/55 L 97 10/21/21 19:00 71 35 H 92 10/21/21 18:00 89 21 91 Resident Activity Tracking Resident Involvement: Resident Care Provided Care Provided: Adult Hospital Medicine (1) Respiratory failure Chronicity: acute Respiratory failure complication: hypoxia Qualified Code(s): J96.01 - Acute respiratory failure with hypoxia (2) Pneumonia Laterality: left Lung location: upper lobe of lung Pneumonia type: due to unspecified organism Qualified Code(s): J18.9 - Pneumonia, unspecified organism
[2021-10-22 06:01] LABS: Base Excess VBG 6.1 mEq/L; HCO3 VBG 32 mmol/L; PCO2 VBG 54 mmHg (38-50); PO2 VBG 32 mmHg; pH VBG 7.39 (7.36-7.41)
[2021-10-22 06:05] LABS: Oxygen Saturation VBG < 60.0 %
[2021-10-22 06:08] LABS: BUN Creatinine Ratio 17.5 (10-20); Est GFR (African American) 112.5 ml/min; Est GFR (Non-African American) 97.1 ml/min; Magnesium 1.9 mg/dl (1.7-2.4); Phosphorus 4.6 mg/dl (2.5-4.9); Potassium 3.8 mmol/L (3.5-5.1)
[2021-10-22 06:09] LABS: Hypochromasia Present
[2021-10-22 06:35] LABS: Folate (Folic Acid) 15.35 ng/ml (>5.38)
[2021-10-22 06:36] LABS: Vitamin B12 > 1500 pg/ml (180-914)
[2021-10-22 06:43] LABS: Ferritin 245.3 ng/ml (8-388)
[2021-10-22] MEDS: LEVOTHYROXINE SODIUM 25 MCG TABLET PO SCH (07:17)
[2021-10-22] MEDS ORDERED: SODIUM CHLORIDE 0.9% 500 ML IV SCH (07:30)
[2021-10-22 07:46] LABS: Reticulocyte % 1.4 % (0.5-2.0); Reticulocytes # 0.03 10^6/uL (0.02-0.10)
[2021-10-22] MEDS: MIDODRINE HCL 2.5 MG TAB PO SCH ×3 (08:00→18:12)
[2021-10-22] MEDS: ASPIRIN 81 MG ECTAB PO SCH (10:08)
[2021-10-22] MEDS: MULTIVITAMIN TAB PO SCH (10:09)
[2021-10-22] MEDS: MAGNESIUM OXIDE 400 MG TAB PO SCH ×2 (10:09→20:53)
[2021-10-22] MEDS: guaiFENesin 600 MG TABCR PO SCH ×2 (10:09→20:46)
[2021-10-22] MEDS: GABAPENTIN 100 MG CAP PO SCH ×16 (10:10→21:10)
[2021-10-22] MEDS: GABAPENTIN 600 MG TAB PO SCH ×15 (10:12→21:10)
[2021-10-22] MEDS: busPIRone 15 MG TAB PO SCH ×3 (10:12→20:47)
[2021-10-22] MEDS: CHOLECALCIFEROL 5,000 UNITS 125 MCG TAB PO SCH (10:13)
[2021-10-22] MEDS: FERROUS SULFATE 325 MG TAB PO SCH ×2 (10:13→20:45)
[2021-10-22] MEDS: FOLIC ACID 1 MG TAB PO SCH (10:14)
[2021-10-22] MEDS: HEPARIN SOD 5,000 UNIT/0.5 ML VIAL SQ SCH ×3 (10:14→20:48)
[2021-10-22] MEDS: predniSONE 20 MG TAB PO SCH (10:14)
[2021-10-22] MEDS: VENLAFAXINE HCL 50 MG TAB PO SCH ×3 (10:15→20:47)
[2021-10-22] MEDS: UMECLIDINIUM BROMIDE 62.5MCG/BLISTER 7 PUFFS/INHALER INH SCH (10:15)
[2021-10-22 12:08] LABS: Hematocrit (blood only) 21.5 % (42-52); Hemoglobin 7.1 g/dL (14.0-18.0)
[2021-10-22] MEDS: carBAMazepine 100 MG CHEW TAB PO SCH ×2 (12:30→20:45)
--- NOTE | 2021-10-22 13:06 | Pharmacy Report ---
Pharmacy Glycemic Short Note 2 - Date of Service October 22, 2021 - Glycemic Short BSG Results (Last 24 hours): 10/21/21 10/21/21 10/22/21 16:34 23:18 05:25 Glucose 79 POC Glucose 174 H 86 10/22/21 10/22/21 07:27 11:45 Glucose POC Glucose 91 125 H OUTPATIENT ANTIDIABETIC REGIMEN: * N/a * HbA1c = 6.0% (10/09/21) ASSESSMENT: 10/22: * Patient was extubated and is ordered a diet, but is eating minimally. * BSGs well controlled with patient receiving only 7 units of insulin yesterday. Patient continues on prednisone taper. * Novolog scale loosened slightly today. 10/20 * BSGs stable, all < 180 mg/dL in the past 48 hours. Sedation changed to precedex in preparation of extubation. * Prednisone being tapered, will go down to 20 mg tomorrow. * Will continue current novolog parameters for now 10/17 * Stressors stable. Prednisone starts to taper tomorrow. * BSG's ranged 128-205 mg/dL after dose adjustment yesterday, with only one BSG > 180 mg/dL. * Will keep same regimen for now. May need to adjust tomorrow with steroid taper 10/16 * Tubefeeds titrating up. Two recent BSG's below goal. Prednisone 40 mg daily continues, with anticipated next step in taper on 10/18. * Basal insulin still not needed * Novolog regimen tightened last night in response to two BSG's >180 mg/dL. Will loosen CHO ratio now with two more recent BSG's below goal for ICU status patient (140-180 mg/dL). Of note - anticipate that highest BSG's will be around 1200 or 1800 as this is when effects of prednisone will peak. May consider adjusting CHO ratio at certain checks per day if this trend continues * OK to keep goal range in Novolog *order* at 110-140 mg/dL despite actual target goal range 140-180 mg/dL as this provides a bit of "basal" insulin that will be "held" for any BSG < 140 mg/dL 10/15 * Remains critically ill, intubated/sedated requiring pressor support and receiving IV antibiotics. IV methylpred transitioned to PO prednisone taper today. Titrating tube feeds to goal. * BSGs have remained within goal the last 24h with q4h Novolog. Novolog parameters tightened today to 30/10 given BSGs rising with tube feed titration (BSGs: [phone]). May need further tightened this evening once titrated to goal. PLAN FOR INPATIENT GLYCEMIC CONTROL: * Basal - continue to hold Lantus * Novolog ACHS * Goal range 110-140 mg/dL * Correction factor: 30 mg/dL/unit * Carb ratio: 12 g CHO/unit
--- NOTE | 2021-10-22 14:53 | Billing Data ---
Date of Service October 22, 2021 Coding Level of Care Code 47593 Subseq Hosp Care Lvl 3
[2021-10-22] MEDS: ROSUVASTATIN CALCIUM 5 MG TAB PO SCH (20:45)
[2021-10-22] MEDS: TAMSULOSIN HCL 0.4 MG CAP PO SCH (20:45)
[2021-10-22] MEDS: busPIRone 7.5 MG TAB PO SCH (20:47)
[2021-10-22] MEDS: PANTOprazole 40 MG TAB PO SCH (20:47)
[2021-10-23] MEDS: ALBUT/IPRATROP 3MG/0.5MG NEB 3 ML VIAL INH SCH ×4 (00:21→20:32)
[2021-10-23] MEDS: CLINDAMYCIN 600 MG in DEXTROSE 5% 50 ML IV SCH ×3 (02:10→17:50)
--- NOTE | 2021-10-23 06:17 | Hospitalist Progress Note ---
Date of Service October 23, 2021 Assessment & Plan (1) Pneumonia: Plan: 60-year-old male past medical history significant for severe bullous emphysema, COPD, and rheumatoid arthritis on MTX presenting to the hospital due to acute on chronic hypoxemic and hypercapnic respiratory failure. The cause of his acute decompensation is thought to be a multifocal community-acquired PNA and subsequent COPD exacerbation. He was admitted directly to the ICU given requirement for vasoactive medications and mechanical ventilation. On 10/20, patient was extubated and has since made interval improvements on OxyMask. Normocytic Anemia - Progressive normocytic anemia appreciated on admission (10.7 --> ~6.5 in AM of 10/23) - Suspect drop is mostly d/t phlebotomy, dilution, recovering nutrition status in critical illness, MTX (on hold), ?heme-occult did return POSITIVE 10/23 - Patient does have history of cirrhosis and reported "10 years ago I've required transfusions due to bleeding," though ?no known h/o varices - No e/o active bleeding, pressures softer but no instability; noted that he's on heparin for DVT ppx - Check iron labs, B12, folate w/ AM labs -- all relatively normal, though somewhat convoluted by inflammatory state - CBC demonstrating stability at >7 without signs or symptoms of anemia - Continue iron supplementation in the interim - Give 1U pRBC - consent obtained (10/23) - Hold heparin Acute on chronic hypoxemic and hypercapnic respiratory failure -- extubated 10/20 - secondary to multifocal PNA + acute exacerbation of COPD, also likely small component from anemia - MRSA+ from sputum culture - s/p bronchoscopy 10/11, 10/14, 10/16 and 10/18; s/p extubation 10/20 - Ween OxyMask as tolerated, doing well - SpO2 goal 88-92% - Mucociliary clearance: flutter valve, percussion therapy, Mucinex - Palliative care consulted while in ICU: would like to be re-intubated if needed Sepsis secondary to MRSA PNA - SIRS and SOFA met on admission in presence of elevated PCT, ESR, CRP - Source: Chest CT showing multifocal PNA - sputum, bronch cultures growing MRSA - acid fast, fungal smears NEGATIVE - initial and repeat BCX - NGTD (final) - Resp Biofire panel neg - Quantiferon Gold - Indeterminate ; TB antigens negative ; unlikely TB per ID - ID consulted, reported 10/13: Secondary to MRSA PNA. Clindamycin until 10/27. Watery Stools - Multiple watery stools observed 10/19 onward, in setting of ongoing clindamycin - Check C. diff studies -- negative - Improving. Likely secondary to ABX. Use Probiotic. Monitor. Hypotension -- resolving, now with softer pressures; off pressors - Multifactorial - previously secondary to sedation + sepsis - Suspect softer pressures are now more d/t hypovolemia, reduced PO intake; lower suspicion anemia is related - Midodrine continues -- ween as tolerated when appropriate - Promote PO intake - Continue prednisone taper (random cortisol normal) - Maintain MAP > 65 Hyponatremia -- resolved - Appears clinically euvolemic on exam - Initially downtrending Na to ~118 through the AM of 10/14 with serum/urine labs c/w SIADH, likely secondary to PNA/critical illness/Linezolid - Monitor on BMP COPD - likely exacerbation contributing to current clinical state due to multifocal PNA - Continue mucociliary clearance: Mucinex, chest PT, DuoNebs; s/p bronch x 4 YOON on CKD: resolved - Baseline Cr ~1.0 Alcohol use disorder in remission, cirrhosis: - no known varices - complication of neuropathy; continue home dose gabapentin PAD - continue home dose statin + aspirin Depression/Anxiety - Resumed venlafaxine, buspirone while intubated Rheumatoid arthritis: - Hold MTX in the setting of sepsis secondary to bacterial infection. Chronic pain, Idiopathic Polyneuropathy - Resumed gabapentin, carbamazepine - Hold home opioid DM2: - A1c 6.0 - short acting insulin ordered with carb ratio - carb consistent diet when not NPO - ICU hyperglycemia protocol Hypothyroidism - continue home dose levothyroxine GERD: - PPI while on steroids. CODE STATUS: Conditional code -- no CPR, ok for intubation FEN: Clear liquids. Advance when appropriate. RADIOLOGY SPECIALIST consulted. DVT prophylaxis: Heparin 5000 units SQ every 12 hours Dispo: PCU (2) Acute exacerbation of chronic obstructive pulmonary disease: (3) Respiratory failure: (4) History of alcohol use: (5) Rheumatoid arthritis: (6) Cirrhosis, alcoholic: (7) T2DM (type 2 diabetes mellitus): Admission and Anticipated Discharge Date Admission Date: October 08, 2021 Supervising Physician Co-Signing Physician Notes I personally examined the patient and verified all hinojosa points of history and exam, discussed case, and agree with decision making with Dr Tejada once again resting comfortably. case d/w dr tejada extensively vitals noted resting comfortably on NC O2 no distress breathing unlabored no accessory muscles no focal neuro deficits severe MRSA pneumonia/sepsis and ventilator dependant respiratory failure - overall since extubation doing amazingly well. continue current care, supportive care, PT/OT eval and treat, clinda through 10/27. dispo planning based on PT/OT recs anemia - likely iatrogenic + malnutrition + dilutional - does have heme (+) stool although no clinical appearance of hemorrhage - but for now will need to hold heparin SQ and asa - at least until Hgb more consistently stable. agree w 1 unit PRBC otherwise as above, DVT proph - heparin SQ now on hold; SCDs of nebulous benefit and possible harm (skin breakdown) Subjective NAEO. Mildly tachycardic into this AM. Not lightheaded or dizzy. Did have a slightly appearing melanotic stool yesterday PM per his RN, noted in the context of iron supplementation. Breathing well. Energy is improving. No CP/palpitatio n/SOB. Feeling pretty weak on his feet with PT. Review of Systems Review of Systems: as per HPI Physical Exam Physical Exam: General: 60-year old male who is alert, oriented, and appears in no acute distress. HEENT: NCAT. - Eyes - Sclera are white, anicteric, and without injection. - Mouth - MMM - Neck - supple, no appreciable JVD Cardiac: Tachycardic w/ regular rhythm; S1 and S2 present with no murmurs, rubs, or gallops. Pulmonary: Easy respiratory effort with symmetric expansion of the chest. No use of accessory muscles. Lung sounds diminished, rhonchi appreciated L>R -- relatively unchanged from yesterday Abdominal: Normoactive bowel sounds. Abdomen was soft, mildly distended, and n on-tender to palpation. Extremities: Upper and lower extremities are warm and well perfused. No peripheral edema in the lower extremities bilaterally. Capillary refill ~1 sec ond in UEs. Results & Data Results & Data ([facility]) Vital Signs (Past 12 Hours) Vital Signs Temp Pulse Pulse Resp BP Pulse Ox 10/23/21 04:00 104 H 21 112/49 L 90 10/23/21 00:21 75 16 100 10/23/21 00:00 36.8 C 89 25 H 100/55 L 95 10/22/21 20:11 77 17 96 10/22/21 20:00 36.4 C L 76 27 H 121/63 94 Resident Activity Tracking Resident Involvement: Resident Care Provided Care Provided: Adult Hospital Medicine (1) Respiratory failure Chronicity: acute Respiratory failure complication: hypoxia Qualified Code(s): J96.01 - Acute respiratory failure with hypoxia (2) Pneumonia Laterality: left Lung location: upper lobe of lung Pneumonia type: due to unspecified organism Qualified Code(s): J18.9 - Pneumonia, unspecified organism
[2021-10-23] MEDS: LEVOTHYROXINE SODIUM 25 MCG TABLET PO SCH (06:22)
[2021-10-23] MEDS ORDERED: SODIUM CHLORIDE 0.9% 500 ML IV ONE (08:00)
[2021-10-23] MEDS: INSULIN ASPART PER UNIT SC SCH ×4 (08:19→22:53)
[2021-10-23] MEDS: MIDODRINE HCL 2.5 MG TAB PO SCH ×3 (08:19→17:51)
[2021-10-23] MEDS: ASPIRIN 81 MG ECTAB PO SCH (08:20)
[2021-10-23] MEDS: busPIRone 15 MG TAB PO SCH ×3 (08:20→21:24)
[2021-10-23] MEDS: FERROUS SULFATE 325 MG TAB PO SCH ×2 (08:21→21:26)
[2021-10-23] MEDS: CHOLECALCIFEROL 5,000 UNITS 125 MCG TAB PO SCH (08:21)
[2021-10-23] MEDS: FOLIC ACID 1 MG TAB PO SCH (08:21)
[2021-10-23] MEDS: carBAMazepine 100 MG CHEW TAB PO SCH ×2 (08:21→21:26)
[2021-10-23] MEDS: GABAPENTIN 100 MG CAP PO SCH ×4 (08:22→21:25)
[2021-10-23] MEDS: GABAPENTIN 600 MG TAB PO SCH ×4 (08:22→21:27)
[2021-10-23] MEDS: guaiFENesin 600 MG TABCR PO SCH ×2 (08:23→21:29)
[2021-10-23] MEDS: HEPARIN SOD 5,000 UNIT/0.5 ML VIAL SQ SCH (08:23)
[2021-10-23] MEDS: predniSONE 20 MG TAB PO SCH (08:23)
[2021-10-23] MEDS: UMECLIDINIUM BROMIDE 62.5MCG/BLISTER 7 PUFFS/INHALER INH SCH (08:24)
[2021-10-23] MEDS: VENLAFAXINE HCL 50 MG TAB PO SCH ×3 (08:24→21:29)
[2021-10-23] MEDS: MULTIVITAMIN TAB PO SCH (08:24)
[2021-10-23] MEDS: MAGNESIUM OXIDE 400 MG TAB PO SCH (08:27)
[2021-10-23 08:53] LABS: Hematocrit (blood only) 19.7 % (42-52); Hemoglobin 6.5 g/dL (14.0-18.0); Mean Corpuscular Hemoglobin 31.3 pg (25-34); Mean Corpuscular Volume 94.7 fL (80-100); Platelet Count 479 K/uL (130-400); RDW Standard Deviation 61.2 fL (36.4-46.3); Red Blood Count 2.08 M/uL (4.7-6.1); White Blood Count 8.55 K/uL (4.8-10.8)
[2021-10-23] MEDS ORDERED: SODIUM CHLORIDE 0.9% 250 ML IV PRN (08:54)
[2021-10-23 09:37] LABS: Basophils # (auto) 0.02 K/uL (0-0.2); Basophils % (auto) 0.2 %; Eosinophils # (auto) 0.02 K/uL (0-0.5); Eosinophils % (auto) 0.2 %; Hypochromasia Present; Immature Granulocytes # (auto) 0.07 K/uL (0.00-0.02); Immature Granulocytes % (auto) 0.8 %; Lymphocytes # (auto) 0.77 K/uL (1.2-3.4); Monocytes # (auto) 0.54 K/uL (0.11-0.59); Monocytes % (auto) 6.3 %; Neutrophils # (auto) 7.13 K/uL (1.4-6.5); Neutrophils % (auto) 83.5 %
[2021-10-23 14:14] LABS: Hematocrit (blood only) 23.3 % (42-52); Hemoglobin 7.7 g/dL (14.0-18.0)
[2021-10-23 14:21] LABS: Base Excess VBG 2.2 mEq/L; HCO3 VBG 27 mmol/L; PCO2 VBG 44 mmHg (38-50); PO2 VBG 21 mmHg; pH VBG 7.41 (7.36-7.41)
[2021-10-23 14:22] LABS: Oxygen Saturation VBG < 60.0 %
--- NOTE | 2021-10-23 17:56 | Billing Data ---
Date of Service October 23, 2021 Coding Level of Care Code 53520 Subseq Hosp Care Lvl 2
--- NOTE | 2021-10-23 17:56 | Billing Data ---
Date of Service October 23, 2021 Coding Level of Care Code 86239 Subseq Hosp Care Lvl 2
[2021-10-23 18:45] LABS: Hematocrit (blood only) 26.5 % (42-52); Hemoglobin 8.8 g/dL (14.0-18.0); Mean Corpuscular Hemoglobin 30.9 pg (25-34); Mean Corpuscular Hgb Conc 33.2 g/dL (32-36); Mean Platelet Volume 9.2 fL (7.4-10.4); Platelet Count 501 K/uL (130-400); RDW Coefficient of Variation 16.9 % (11.5-14.5); RDW Standard Deviation 56.9 fL (36.4-46.3); Red Blood Count 2.85 M/uL (4.7-6.1); White Blood Count 9.54 K/uL (4.8-10.8)
[2021-10-23] MEDS: TAMSULOSIN HCL 0.4 MG CAP PO SCH (21:25)
[2021-10-23] MEDS: ROSUVASTATIN CALCIUM 5 MG TAB PO SCH (21:26)
[2021-10-23] MEDS: busPIRone 7.5 MG TAB PO SCH (21:26)
[2021-10-23] MEDS: PANTOprazole 40 MG TAB PO SCH (21:28)
[2021-10-24] MEDS: MAGNESIUM OXIDE 400 MG TAB PO SCH ×3 (00:26→21:01)
[2021-10-24] MEDS: CLINDAMYCIN 600 MG in DEXTROSE 5% 50 ML IV SCH ×3 (01:43→17:02)
[2021-10-24] MEDS: ALBUT/IPRATROP 3MG/0.5MG NEB 3 ML VIAL INH SCH ×3 (01:49→13:03)
[2021-10-24] MEDS: LEVOTHYROXINE SODIUM 25 MCG TABLET PO SCH (05:20)
--- NOTE | 2021-10-24 07:08 | Hospitalist Progress Note ---
Date of Service October 24, 2021 Assessment & Plan (1) Pneumonia: Plan: 60-year-old male past medical history significant for severe bullous emphysema, COPD, and rheumatoid arthritis on MTX presenting to the hospital due to acute on chronic hypoxemic and hypercapnic respiratory failure. The cause of his acute decompensation is thought to be a multifocal community-acquired PNA and subsequent COPD exacerbation. He was admitted directly to the ICU given requirement for vasoactive medications and mechanical ventilation. On 10/20, patient was extubated and has since made interval improvements on OxyMask. Normocytic Anemia - Progressive normocytic anemia appreciated on admission (10.7 --> ~6.5 in AM of 10/23) - Positive hemoccult 10/23, s/p 1u pRBC transfusion - Patient does have history of cirrhosis and reported "10 years ago I've requir ed transfusions due to bleeding," though ?no known h/o varices - Iron workup all relatively normal, though somewhat convoluted by inflammatory state - CBC demonstrating stability at >7 without signs or symptoms of anemia - Continue iron supplementation in the interim Acute on chronic hypoxemic and hypercapnic respiratory failure -- extubated 10/20 - secondary to multifocal PNA + acute exacerbation of COPD, also likely small component from anemia - MRSA+ from sputum culture - s/p bronchoscopy 10/11, 10/14, 10/16 and 10/18; s/p extubation 10/20 - improved, down to 5L NC - Mucociliary clearance: flutter valve, percussion therapy, Mucinex - Palliative care consulted while in ICU: would like to be re-intubated if needed Sepsis secondary to MRSA PNA -- resolved - SIRS and SOFA met on admission in presence of elevated PCT, ESR, CRP - Source: Chest CT showing multifocal PNA - sputum, bronch cultures growing MRSA - acid fast, fungal smears NEGATIVE - initial and repeat BCX - NGTD (final) - Resp Biofire panel neg - Quantiferon Gold - Indeterminate ; TB antigens negative ; unlikely TB per ID - ID consulted, reported 10/13: Secondary to MRSA PNA. Clindamycin until 10/27. Watery Stools -- resolved - Multiple watery stools observed 10/19 onward, in setting of ongoing cli ndamycin - Check C. diff studies -- negative - Improving. Likely secondary to ABX. Use Probiotic. Monitor. Hypotension -- resolving, now with softer pressures; off pressors - Multifactorial - previously secondary to sedation + sepsis - Suspect softer pressures are now more d/t hypovolemia, reduced PO intake; lower suspicion anemia is related - Midodrine continues -- ween as tolerated when appropriate - Promote PO intake - Continue prednisone taper (random cortisol normal) - Maintain MAP > 65 Hyponatremia -- resolved - Appears clinically euvolemic on exam - Initially downtrending Na to ~118 through the AM of 10/14 with serum/urine labs c/w SIADH, likely secondary to PNA/critical illness/Linezolid - Monitor on BMP COPD - likely exacerbation contributing to current clinical state due to multifocal PNA - Continue mucociliary clearance: Mucinex, chest PT, DuoNebs; s/p bronch x 4 YOON on CKD: resolved - Baseline Cr ~1.0 Alcohol use disorder in remission, cirrhosis: - no known varices - complication of neuropathy; continue home dose gabapentin PAD - continue home dose statin + aspirin Depression/Anxiety - Resumed venlafaxine, buspirone while intubated Rheumatoid arthritis: - Hold MTX in the setting of sepsis secondary to bacterial infection. Chronic pain, Idiopathic Polyneuropathy - Resumed gabapentin, carbamazepine - Hold home opioid DM2: - A1c 6.0 - short acting insulin ordered with carb ratio - carb consistent diet when not NPO - ICU hyperglycemia protocol Hypothyroidism - continue home dose levothyroxine GERD: - PPI while on steroids. CODE STATUS: Conditional code -- no CPR, ok for intubation FEN: regular diet DVT prophylaxis: Heparin 5000 units SQ every 12 hours Dispo: Med/Tele (2) Acute exacerbation of chronic obstructive pulmonary disease: (3) Respiratory failure: (4) History of alcohol use: (5) Rheumatoid arthritis: (6) Cirrhosis, alcoholic: (7) T2DM (type 2 diabetes mellitus): Admission and Anticipated Discharge Date Admission Date: October 08, 2021 Supervising Physician Co-Signing Physician Notes I personally examined the patient and verified all hinojosa points of history and exam, discussed case, and agree with decision making with Dr Alejandra feeling good breathing feeling good, improving nicely vitals noted sitting in chair awake alert talkative on NC O2 no distress breathing unlabored no accessory muscles no focal neuro deficits severe MRSA pneumonia/sepsis and ventilator dependant respiratory failure - overall since extubation doing amazingly well. continue current care, supportive care, PT/OT eval and treat, clinda through 10/27. dispo - anticipte SNF/rehab emphasis once set up anemia - likely iatrogenic + malnutrition + dilutional - does have heme (+) stool although no clinical appearance of hemorrhage - but for now will need to hold heparin SQ and asa - at least until Hgb more consistently stable. did improve w 1 unit PRBC given 10/23 otherwise as above, DVT proph - heparin SQ now on hold; SCDs of nebulous benefit and possible harm (skin breakdown) Subjective Doing well this morning. feeling subjectively better and sitting at the bedside. able to use incentive spirometer without difficulty up to 1.5L. no chest pain, SOB, CHAPA, inspiratory pain. Review of Systems Review of Systems: All systems reviewed & are unremarkable except as noted in Subjective Physical Exam Physical Exam: const: thin/cachectic, elderly male in no acute distress pulm: good air entry in both lungs to bases, no focal wheezes rhonchi or crackles, card: tachycardic, irregular rate and rhythm Results & Data Results & Data ([facility]) Vital Signs (Past 12 Hours) Vital Signs Temp Pulse Pulse Pulse Resp BP Pulse Ox 10/24/21 03:00 37 C 92 H 20 106/51 L 96 10/23/21 22:17 78 10/23/21 22:05 36.9 C 75 18 116/70 93 10/23/21 20:33 77 20 94 Resident Activity Tracking Resident Involvement: Resident Care Provided Care Provided: Adult Hospital Medicine (1) Respiratory failure Chronicity: acute Respiratory failure complication: hypoxia Qualified Code(s): J96.01 - Acute respiratory failure with hypoxia (2) Pneumonia Laterality: left Lung location: upper lobe of lung Pneumonia type: due to unspecified organism Qualified Code(s): J18.9 - Pneumonia, unspecified organism
[2021-10-24] MEDS: INSULIN ASPART PER UNIT SC SCH ×4 (08:52→20:35)
[2021-10-24] MEDS: UMECLIDINIUM BROMIDE 62.5MCG/BLISTER 7 PUFFS/INHALER INH SCH (08:55)
[2021-10-24] MEDS: predniSONE 10 MG TABLET PO SCH (08:56)
[2021-10-24] MEDS: VENLAFAXINE HCL 50 MG TAB PO SCH ×3 (08:56→20:59)
[2021-10-24] MEDS: GABAPENTIN 100 MG CAP PO SCH ×4 (08:57→20:59)
[2021-10-24] MEDS: guaiFENesin 600 MG TABCR PO SCH ×2 (08:57→21:00)
[2021-10-24] MEDS: PANTOprazole 40 MG TAB PO SCH ×2 (08:57→20:59)
[2021-10-24] MEDS: MULTIVITAMIN TAB PO SCH (08:57)
[2021-10-24] MEDS: carBAMazepine 100 MG CHEW TAB PO SCH ×2 (08:58→20:58)
[2021-10-24] MEDS: FERROUS SULFATE 325 MG TAB PO SCH ×2 (08:58→21:00)
[2021-10-24] MEDS: FOLIC ACID 1 MG TAB PO SCH (08:58)
[2021-10-24] MEDS: CHOLECALCIFEROL 5,000 UNITS 125 MCG TAB PO SCH (08:58)
[2021-10-24 08:59] LABS: Basophils # (auto) 0.02 K/uL (0-0.2); Basophils % (auto) 0.2 %; Eosinophils # (auto) 0.06 K/uL (0-0.5); Eosinophils % (auto) 0.5 %; Hematocrit (blood only) 27.4 % (42-52); Hemoglobin 9.4 g/dL (14.0-18.0); Immature Granulocytes # (auto) 0.06 K/uL (0.00-0.02); Immature Granulocytes % (auto) 0.5 %; Lymphocytes # (auto) 0.95 K/uL (1.2-3.4); Lymphocytes % (auto) 7.3 %; Mean Corpuscular Hgb Conc 34.3 g/dL (32-36); Mean Corpuscular Volume 93.2 fL (80-100); Mean Platelet Volume 8.8 fL (7.4-10.4); Monocytes # (auto) 0.77 K/uL (0.11-0.59); Monocytes % (auto) 5.9 %; Neutrophils # (auto) 11.24 K/uL (1.4-6.5); Neutrophils % (auto) 85.6 %; Platelet Count 449 K/uL (130-400); RDW Coefficient of Variation 17.1 % (11.5-14.5); RDW Standard Deviation 57.2 fL (36.4-46.3); Red Blood Count 2.94 M/uL (4.7-6.1)
[2021-10-24] MEDS: MIDODRINE HCL 2.5 MG TAB PO SCH ×3 (08:59→17:02)
[2021-10-24] MEDS: busPIRone 15 MG TAB PO SCH ×3 (08:59→20:58)
[2021-10-24] MEDS: GABAPENTIN 600 MG TAB PO SCH ×4 (09:00→21:00)
[2021-10-24 10:06] LABS: BUN Creatinine Ratio 16.5 (10-20); Calcium 8.5 mg/dl (8.5-10.1); Creatinine Clr Calc Pharmacy 75.2 ml/min; Est GFR (African American) 109.8 ml/min; Est GFR (Non-African American) 94.7 ml/min; Potassium 3.8 mmol/L (3.5-5.1)
[2021-10-24] MEDS ORDERED: oxyCODONE HCL IR 5 MG TAB (IMMEDIATE RELEASE) PO STA (10:24)
[2021-10-24] MEDS ORDERED: ALBUT/IPRATROP 3MG/0.5MG NEB 3 ML VIAL NEB PRN (17:01)
--- NOTE | 2021-10-24 17:44 | Billing Data ---
Date of Service October 24, 2021 Coding Level of Care Code 97377 Subseq Hosp Care Lvl 3
[2021-10-24] MEDS: TAMSULOSIN HCL 0.4 MG CAP PO SCH (20:58)
[2021-10-24] MEDS: busPIRone 7.5 MG TAB PO SCH (20:58)
[2021-10-24] MEDS: HEPARIN SOD 5,000 UNIT/0.5 ML VIAL SQ SCH (20:58)
[2021-10-24] MEDS: ROSUVASTATIN CALCIUM 5 MG TAB PO SCH (20:59)
[2021-10-25] MEDS: CLINDAMYCIN 600 MG in DEXTROSE 5% 50 ML IV SCH ×3 (02:18→16:06)
[2021-10-25] MEDS: LEVOTHYROXINE SODIUM 25 MCG TABLET PO SCH ×2 (05:51→07:49)
--- NOTE | 2021-10-25 07:21 | Hospitalist Progress Note ---
Date of Service October 25, 2021 Assessment & Plan (1) Pneumonia: Plan: 60-year-old male w/ PMHx of severe bullous emphysema, COPD, and rheumatoid arthritis on MTX presenting to the hospital due to multifactorial (MRSA PNA, emphysema, mucous plugging) acute on chronic hypoxemic and hypercapnic respiratory failure. He required ICU care for intubation and was extubated on 10/20/21 w/ improvement. Acute on chronic hypoxemic and hypercapnic respiratory failure -- extubated 10/20 - see above - s/p bronchoscopy 10/11, 10/14, 10/16 and 10/18; s/p extubation 10/20 - in process of weaning off O2 Normocytic Anemia - Progressive normocytic anemia appreciated on admission (10.7 --> ~6.5 in AM of 10/23) - Positive hemoccult, s/p 2u pRBC transfusion on 10/23 - Patient does have history of cirrhosis and reported "10 years ago I've required transfusions due to bleeding," though ?no known h/o varices - CBC demonstrating stability at >7 without signs or symptoms of anemia Sepsis secondary to MRSA PNA -- resolved - SIRS and SOFA met on admission in presence of elevated PCT, ESR, CRP - Source: Chest CT showing multifocal PNA - Quantiferon Gold - Indeterminate ; TB antigens negative ; unlikely TB per ID - ID consulted, reported 10/13: Secondary to MRSA PNA. Clindamycin until 10/27. Hypotension -- resolving, off pressors - Multifactorial - previously secondary to sedation + sepsis - Suspect softer pressures are now more d/t hypovolemia, reduced PO intake; lower suspicion anemia is related - Midodrine continues -- ween as tolerated when appropriate - Continue prednisone taper (random cortisol normal) COPD - see above - w/ severe bullous emphysema Alcohol use disorder in remission, cirrhosis: - no known varices - complication of neuropathy; continue home dose gabapentin YOON on CKD: resolved - Baseline Cr ~1.0 Hyponatremia -- resolved Watery Stools -- resolved PAD - continue home dose statin + aspirin Depression/Anxiety - Resumed venlafaxine, buspirone while intubated Rheumatoid arthritis: - Hold MTX in the setting of sepsis secondary to bacterial infection. Chronic pain, Idiopathic Polyneuropathy - Resumed gabapentin, carbamazepine - Hold home opioid DM2: - A1c 6.0 - SSI Hypothyroidism - continue home levothyroxine GERD: - PPI while on steroids. CODE STATUS: Conditional code -- intubation ok, no CPR FEN: DM2 DVT prophylaxis: Heparin 5000u q12 Dispo: med tele (2) Acute exacerbation of chronic obstructive pulmonary disease: (3) Respiratory failure: (4) History of alcohol use: (5) Rheumatoid arthritis: (6) Cirrhosis, alcoholic: (7) T2DM (type 2 diabetes mellitus): Admission and Anticipated Discharge Date Admission Date: October 08, 2021 Supervising Physician Co-Signing Physician Notes I personally examined the patient and verified all hinojosa points of history and exam, discussed case, and agree with decision making with Dr Rangel sleeping comfortably. vitals noted laying in bed NC O2 no distress breathing unlabored no accessory muscles no focal neuro deficits severe MRSA pneumonia/sepsis and ventilator dependant respiratory failure - overall since extubation doing amazingly well. continue current care, supportive care, PT/OT eval and treat, clinda through 10/27. dispo - anticipte SNF/rehab emphasis once set up (hopefully in the next few days) anemia - likely iatrogenic + malnutrition + dilutional - does have heme (+) stool although no clinical appearance of hemorrhage - for now holding heparin SQ and asa - at least until Hgb more consistently stable (reassuring today - if stable into tomorrow may consider resumption of asa). did improve w 1 unit PRBC given 10/23 otherwise as above, DVT proph - heparin SQ now on hold; SCDs of nebulous benefit and possible harm (skin breakdown) Subjective Patient states he feels quite well. No chest pain or SOB. Eating breakfast. Denies issues w/ BMs. No fever/chills. No dizziness or bloody stool. Review of Systems Review of Systems: All systems reviewed & are unremarkable except as noted in HPI & below Physical Exam Physical Exam: General: Grossly A&O. NAD. Cooperative. Frail appearing. Conversational. HEENT: Atraumatic, normocephalic. EOMI Pulm: Faint coarse insp crackles at bases. Diminshed breath sounds diffusely. No accessory muscle use. Cardiac: RRR, -mrg. No LE edema. Abdominal: Nontender, nondistended, soft. Results & Data Results & Data ([facility]) Vital Signs (Past 12 Hours) Vital Signs Temp Pulse Pulse Pulse Resp BP Pulse Ox 10/25/21 07:07 101 H 10/25/21 03:00 36.9 C 98 H 18 91/61 L 92 10/25/21 00:00 87 10/24/21 23:52 37 C 81 16 100/64 96 Resident Activity Tracking Resident Involvement: Resident Care Provided Care Provided: Adult Hospital Medicine (1) Respiratory failure Chronicity: acute Respiratory failure complication: hypoxia Qualified Code(s): J96.01 - Acute respiratory failure with hypoxia (2) Pneumonia Laterality: left Lung location: upper lobe of lung Pneumonia type: due to unspecified organism Qualified Code(s): J18.9 - Pneumonia, unspecified organism
[2021-10-25] MEDS: MIDODRINE HCL 2.5 MG TAB PO SCH ×3 (07:50→16:04)
[2021-10-25] MEDS: busPIRone 15 MG TAB PO SCH ×3 (07:50→20:54)
[2021-10-25] MEDS: predniSONE 10 MG TABLET PO SCH (07:50)
[2021-10-25] MEDS: GABAPENTIN 100 MG CAP PO SCH ×4 (07:50→20:54)
[2021-10-25] MEDS: GABAPENTIN 600 MG TAB PO SCH ×4 (07:51→20:54)
[2021-10-25] MEDS: CHOLECALCIFEROL 5,000 UNITS 125 MCG TAB PO SCH (07:51)
[2021-10-25] MEDS: MAGNESIUM OXIDE 400 MG TAB PO SCH ×2 (07:52→20:54)
[2021-10-25] MEDS: guaiFENesin 600 MG TABCR PO SCH ×2 (07:52→20:54)
[2021-10-25] MEDS: PANTOprazole 40 MG TAB PO SCH ×2 (07:52→20:53)
[2021-10-25] MEDS: carBAMazepine 100 MG CHEW TAB PO SCH ×2 (07:52→20:54)
[2021-10-25] MEDS: FERROUS SULFATE 325 MG TAB PO SCH ×2 (07:52→20:54)
[2021-10-25] MEDS: MULTIVITAMIN TAB PO SCH (07:53)
[2021-10-25] MEDS: HEPARIN SOD 5,000 UNIT/0.5 ML VIAL SQ SCH ×2 (07:53→20:52)
[2021-10-25] MEDS: UMECLIDINIUM BROMIDE 62.5MCG/BLISTER 7 PUFFS/INHALER INH SCH (07:53)
[2021-10-25] MEDS: FOLIC ACID 1 MG TAB PO SCH (07:53)
[2021-10-25] MEDS: VENLAFAXINE HCL 50 MG TAB PO SCH ×3 (07:54→20:53)
[2021-10-25] MEDS: INSULIN ASPART PER UNIT SC SCH ×4 (08:07→21:09)
[2021-10-25 09:51] LABS: Hematocrit (blood only) 25.8 % (42-52); Hemoglobin 8.6 g/dL (14.0-18.0); Mean Corpuscular Hemoglobin 30.8 pg (25-34); Mean Corpuscular Hgb Conc 33.3 g/dL (32-36); Mean Corpuscular Volume 92.5 fL (80-100); Mean Platelet Volume 8.9 fL (7.4-10.4); Platelet Count 451 K/uL (130-400); RDW Coefficient of Variation 16.9 % (11.5-14.5); RDW Standard Deviation 56.4 fL (36.4-46.3); Red Blood Count 2.79 M/uL (4.7-6.1); White Blood Count 11.79 K/uL (4.8-10.8)
[2021-10-25 10:14] LABS: Albumin Globulin Ratio 0.6 (0.9-2); Albumin Level 2.7 gm/dl (3.4-5.0); BUN Creatinine Ratio 16.1 (10-20); Bilirubin,Total 0.4 mg/dl (0.2-1.0); Calcium 8.4 mg/dl (8.5-10.1); Creatinine Clr Calc Pharmacy 76.5 ml/min; Est GFR (African American) 108.7 ml/min; Est GFR (Non-African American) 93.8 ml/min; Globulin 4.3 gm/dl (2.5-4.0); Potassium 3.5 mmol/L (3.5-5.1)
[2021-10-25] MEDS ORDERED: POTASSIUM CHLORIDE PWD 20 MEQ PACK PO ONE (11:00)
--- NOTE | 2021-10-25 17:34 | Billing Data ---
Date of Service October 25, 2021 Coding Level of Care Code 55080 Subseq Hosp Care Lvl 1
[2021-10-25] MEDS: CARBOHYDRATES FOR HYPOGLYCEMIA PO PRN (20:01)
[2021-10-25] MEDS: ROSUVASTATIN CALCIUM 5 MG TAB PO SCH (20:53)
[2021-10-25] MEDS: TAMSULOSIN HCL 0.4 MG CAP PO SCH (20:53)
[2021-10-25] MEDS: busPIRone 7.5 MG TAB PO SCH (20:54)
[2021-10-26] MEDS: CLINDAMYCIN 600 MG in DEXTROSE 5% 50 ML IV SCH ×3 (02:26→15:38)
[2021-10-26] MEDS: GABAPENTIN 600 MG TAB PO SCH ×4 (07:22→21:05)
[2021-10-26] MEDS: guaiFENesin 600 MG TABCR PO SCH ×2 (07:22→21:04)
[2021-10-26] MEDS: MIDODRINE HCL 2.5 MG TAB PO SCH (07:22)
[2021-10-26] MEDS: busPIRone 15 MG TAB PO SCH ×3 (07:23→21:05)
[2021-10-26] MEDS: CHOLECALCIFEROL 5,000 UNITS 125 MCG TAB PO SCH (07:23)
[2021-10-26] MEDS: GABAPENTIN 100 MG CAP PO SCH ×4 (07:23→21:06)
[2021-10-26] MEDS: FOLIC ACID 1 MG TAB PO SCH (07:23)
[2021-10-26] MEDS: MULTIVITAMIN TAB PO SCH (07:23)
[2021-10-26] MEDS: FERROUS SULFATE 325 MG TAB PO SCH ×2 (07:23→21:06)
[2021-10-26] MEDS: predniSONE 10 MG TABLET PO SCH (07:24)
[2021-10-26] MEDS: HEPARIN SOD 5,000 UNIT/0.5 ML VIAL SQ SCH ×2 (07:24→21:08)
[2021-10-26] MEDS: PANTOprazole 40 MG TAB PO SCH ×2 (07:25→21:04)
[2021-10-26] MEDS: MAGNESIUM OXIDE 400 MG TAB PO SCH ×2 (07:25→21:04)
[2021-10-26] MEDS: VENLAFAXINE HCL 50 MG TAB PO SCH ×3 (07:25→21:03)
[2021-10-26] MEDS: carBAMazepine 100 MG CHEW TAB PO SCH ×2 (07:25→21:06)
[2021-10-26] MEDS: UMECLIDINIUM BROMIDE 62.5MCG/BLISTER 7 PUFFS/INHALER INH SCH (07:26)
--- NOTE | 2021-10-26 07:45 | Hospitalist Progress Note ---
Date of Service October 26, 2021 Assessment & Plan (1) Pneumonia: Plan: 60-year-old male w/ PMHx of severe bullous emphysema, COPD, and rheumatoid arthritis on MTX presenting to the hospital due to multifactorial (MRSA PNA, emphysema, mucous plugging) acute on chronic hypoxemic and hypercapnic respiratory failure. He required ICU care for intubation and was extubated on 10/20/21 w/ improvement. Acute on chronic hypoxemic and hypercapnic respiratory failure -- extubated 10/20 - s/p bronchoscopy 10/11, 10/14, 10/16 and 10/18; s/p extubation 10/20 - weaned to room air Normocytic Anemia - Progressive normocytic anemia appreciated on admission (10.7 --> ~6.5 in AM of 10/23) - Positive hemoccult, s/p 2u pRBC transfusion on 10/23 - Patient does have history of cirrhosis and reported "10 years ago I've required transfusions due to bleeding," though ?no known h/o varices - CBC demonstrating stability at >8 without signs or symptoms of anemia Sepsis secondary to MRSA PNA -- resolved - SIRS and SOFA met on admission in presence of elevated PCT, ESR, CRP - Source: Chest CT showing multifocal PNA - Quantiferon Gold - Indeterminate ; TB antigens negative ; unlikely TB per ID - ID consulted, reported 10/13: Secondary to MRSA PNA. Clindamycin until 10/27. Hypotension -- resolving, off pressors - Multifactorial - previously secondary to sedation + sepsis - Suspect softer pressures are now more d/t hypovolemia, reduced PO intake; lower suspicion anemia is related - Midodrine held 10/26/21; attempt discontinuation of; taper if needed - Continue prednisone taper COPD - see above - w/ severe bullous emphysema Alcohol use disorder in remission, cirrhosis: - no known varices - complication of neuropathy; continue home dose gabapentin YOON on CKD: resolved - Baseline Cr ~1.0 Hyponatremia -- resolved Watery Stools -- resolved PAD - continue home dose statin + aspirin Depression/Anxiety - Resumed venlafaxine, buspirone while intubated Rheumatoid arthritis: - Hold MTX in the setting of sepsis secondary to bacterial infection. Chronic pain, Idiopathic Polyneuropathy - Resumed gabapentin, carbamazepine - Hold home opioid DM2: - A1c 6.0 - SSI Hypothyroidism - continue home levothyroxine GERD: - PPI while on steroids. CODE STATUS: Conditional code -- intubation ok, no CPR FEN: DM2 DVT prophylaxis: Heparin 5000u q12 Dispo: med tele. awaiting placement (2) Acute exacerbation of chronic obstructive pulmonary disease: (3) Respiratory failure: (4) History of alcohol use: (5) Rheumatoid arthritis: (6) Cirrhosis, alcoholic: (7) T2DM (type 2 diabetes mellitus): Admission and Anticipated Discharge Date Admission Date: October 08, 2021 Supervising Physician Co-Signing Physician Notes I personally examined the patient and verified all hinojosa points of history and exam, discussed case, and agree with decision making with Dr Rangel doing well off O2. notes that he thinks he could do better w PT w less leg pain - notes leg pain is chronic - at home he takes 10mg oxycodone TID. after discussion - started w trial of 5mg (since he was recently intubated/etc did not want to risk medication ADRs being bigger than he normally has - he thought was reasonable) on revisit noted no sedation and also essentially no pain relief. increased to 10mg vitals noted laying in bed NC O2 no distress breathing unlabored no accessory muscles no focal neuro deficits severe MRSA pneumonia/sepsis and ventilator dependant respiratory failure - overall since extubation doing amazingly well. continue current care, supportive care, PT/OT eval and treat, clinda through 10/27. dispo - anticipte SNF/rehab emphasis once set up (hopefully in the next few days), oxycodone re- started for chronic leg pain anemia - likely iatrogenic + malnutrition + dilutional - does have heme (+) stool although no clinical appearance of hemorrhage (was appears was on iron) - for now holding heparin SQ, resumed asa for PAD. Hgb has been stable. did have 2 units transfused ealier in hospital stay otherwise as above, DVT proph - heparin SQ now on hold; SCDs of nebulous benefit and possible harm (skin breakdown) Subjective Feeling well. On room air. No complaints. Requesting more out of bed and PT as he feels he is deconditioned. Denies hx of seizure. Review of Systems Review of Systems: All systems reviewed & are unremarkable except as noted in HPI & below Physical Exam Physical Exam: General: Grossly A&O. NAD. Cooperative. Frail appearing. Conversational. HEENT: Atraumatic, normocephalic. EOMI Pulm: Faint coarse insp crackless at R base. Diminished breath sounds diffusely, clear. No accessory muscle use. Cardiac: RRR, -mrg. No LE edema. Abdominal: Nontender, nondistended, soft. Results & Data Results & Data ([facility]) Vital Signs (Past 12 Hours) Vital Signs Temp Pulse Resp BP Pulse Ox 10/26/21 07:31 36.9 C 82 18 108/61 93 10/25/21 22:46 36.7 C 80 18 120/73 93 Resident Activity Tracking Resident Involvement: Resident Care Provided Care Provided: Adult Hospital Medicine (1) Respiratory failure Chronicity: acute Respiratory failure complication: hypoxia Qualified Code(s): J96.01 - Acute respiratory failure with hypoxia (2) Pneumonia Laterality: left Lung location: upper lobe of lung Pneumonia type: due to unspecified organism Qualified Code(s): J18.9 - Pneumonia, unspecified organism
[2021-10-26] MEDS: INSULIN ASPART PER UNIT SC SCH ×4 (08:13→20:51)
[2021-10-26 08:35] LABS: Basophils # (auto) 0.01 K/uL (0-0.2); Basophils % (auto) 0.1 %; Eosinophils # (auto) 0.12 K/uL (0-0.5); Eosinophils % (auto) 1.2 %; Hematocrit (blood only) 26.1 % (42-52); Hemoglobin 9.2 g/dL (14.0-18.0); Immature Granulocytes # (auto) 0.03 K/uL (0.00-0.02); Immature Granulocytes % (auto) 0.3 %; Lymphocytes # (auto) 1.33 K/uL (1.2-3.4); Lymphocytes % (auto) 12.8 %; Mean Corpuscular Hemoglobin 32.9 pg (25-34); Mean Corpuscular Hgb Conc 35.2 g/dL (32-36); Mean Corpuscular Volume 93.2 fL (80-100); Mean Platelet Volume 8.9 fL (7.4-10.4); Monocytes # (auto) 0.65 K/uL (0.11-0.59); Monocytes % (auto) 6.3 %; Neutrophils # (auto) 8.22 K/uL (1.4-6.5); Neutrophils % (auto) 79.3 %; Platelet Count 496 K/uL (130-400); RDW Coefficient of Variation 16.7 % (11.5-14.5); RDW Standard Deviation 56.1 fL (36.4-46.3); White Blood Count 10.36 K/uL (4.8-10.8)
[2021-10-26 08:53] LABS: BUN Creatinine Ratio 18.7 (10-20); Calcium 8.6 mg/dl (8.5-10.1); Creatinine Clr Calc Pharmacy 88.7 ml/min; Est GFR (African American) 115.6 ml/min; Est GFR (Non-African American) 99.7 ml/min; Potassium 3.6 mmol/L (3.5-5.1)
[2021-10-26] MEDS ORDERED: oxyCODONE HCL IR 5 MG TAB (IMMEDIATE RELEASE) PO PRN (11:23)
[2021-10-26] MEDS ORDERED: oxyCODONE HCL IR 5 MG TAB (IMMEDIATE RELEASE) PO STA (11:23)
--- NOTE | 2021-10-26 14:15 | Pharmacy Report ---
Pharmacy Glycemic Short Note 2 - Date of Service October 26, 2021 - Glycemic Short BSG Results (Last 24 hours): 10/25/21 10/25/21 10/25/21 16:43 19:55 19:56 Glucose POC Glucose 109 H 59 L* 63 L* 10/25/21 10/26/21 10/26/21 20:16 07:21 07:41 Glucose 80 POC Glucose 76 92 10/26/21 11:56 Glucose POC Glucose 101 H OUTPATIENT ANTIDIABETIC REGIMEN: * N/a * HbA1c = 6.0% (10/09/21) ASSESSMENT: * BSGs have been stable with little to no insulin requirements. * Pt was hypoglycemic pre-dinner yesterday. Carb coverage removed from Novolog. Will provide only correctional insulin at this point. * No further changes required at this time. PLAN FOR INPATIENT GLYCEMIC CONTROL: * Basal - none * Novolog ACHS * Goal range 110-140 mg/dL * Correction factor: 30 mg/dL/unit * Carb ratio: none
--- NOTE | 2021-10-26 17:30 | Billing Data ---
Date of Service October 26, 2021 Coding Level of Care Code 25307 Subseq Hosp Care Lvl 2
[2021-10-26] MEDS: oxyCODONE HCL IR 5 MG TAB (IMMEDIATE RELEASE) PO PRN (18:28)
[2021-10-26] MEDS: TAMSULOSIN HCL 0.4 MG CAP PO SCH (21:04)
[2021-10-26] MEDS: busPIRone 7.5 MG TAB PO SCH (21:05)
[2021-10-26] MEDS: ROSUVASTATIN CALCIUM 5 MG TAB PO SCH (21:05)
[2021-10-27] MEDS: CLINDAMYCIN 600 MG in DEXTROSE 5% 50 ML IV SCH ×3 (03:00→17:37)
[2021-10-27] MEDS: LEVOTHYROXINE SODIUM 25 MCG TABLET PO SCH (05:49)
[2021-10-27 06:08] LABS: Basophils # (auto) 0.03 K/uL (0-0.2); Basophils % (auto) 0.3 %; Eosinophils # (auto) 0.15 K/uL (0-0.5); Eosinophils % (auto) 1.7 %; Hematocrit (blood only) 26.6 % (42-52); Hemoglobin 8.9 g/dL (14.0-18.0); Immature Granulocytes # (auto) 0.03 K/uL (0.00-0.02); Immature Granulocytes % (auto) 0.3 %; Lymphocytes % (auto) 14.6 %; Mean Corpuscular Hemoglobin 30.7 pg (25-34); Mean Corpuscular Hgb Conc 33.5 g/dL (32-36); Mean Corpuscular Volume 91.7 fL (80-100); Mean Platelet Volume 8.8 fL (7.4-10.4); Monocytes # (auto) 0.69 K/uL (0.11-0.59); Monocytes % (auto) 7.8 %; Neutrophils # (auto) 6.68 K/uL (1.4-6.5); Neutrophils % (auto) 75.3 %; Platelet Count 444 K/uL (130-400); RDW Coefficient of Variation 16.6 % (11.5-14.5); RDW Standard Deviation 54.4 fL (36.4-46.3); White Blood Count 8.88 K/uL (4.8-10.8)
[2021-10-27 06:47] LABS: BUN Creatinine Ratio 16.8 (10-20); Calcium 8.6 mg/dl (8.5-10.1); Creatinine Clr Calc Pharmacy 65.9 ml/min; Est GFR (African American) 93.3 ml/min; Est GFR (Non-African American) 80.5 ml/min; Potassium 4.1 mmol/L (3.5-5.1)
[2021-10-27] MEDS: MAGNESIUM OXIDE 400 MG TAB PO SCH ×2 (07:46→20:33)
[2021-10-27] MEDS: guaiFENesin 600 MG TABCR PO SCH ×2 (07:46→20:33)
[2021-10-27] MEDS: PANTOprazole 40 MG TAB PO SCH ×2 (07:46→20:33)
[2021-10-27] MEDS: busPIRone 15 MG TAB PO SCH ×3 (07:47→20:33)
[2021-10-27] MEDS: GABAPENTIN 600 MG TAB PO SCH ×4 (07:47→20:33)
[2021-10-27] MEDS: FOLIC ACID 1 MG TAB PO SCH (07:48)
[2021-10-27] MEDS: MULTIVITAMIN TAB PO SCH (07:48)
[2021-10-27] MEDS: carBAMazepine 100 MG CHEW TAB PO SCH ×2 (07:48→20:33)
[2021-10-27] MEDS: CHOLECALCIFEROL 5,000 UNITS 125 MCG TAB PO SCH (07:48)
[2021-10-27] MEDS: ASPIRIN 81 MG ECTAB PO SCH (07:48)
[2021-10-27] MEDS: predniSONE 2.5 MG TAB PO SCH (07:49)
[2021-10-27] MEDS: HEPARIN SOD 5,000 UNIT/0.5 ML VIAL SQ SCH ×2 (07:50→20:36)
[2021-10-27] MEDS: VENLAFAXINE HCL 50 MG TAB PO SCH ×3 (07:50→20:34)
[2021-10-27] MEDS: UMECLIDINIUM BROMIDE 62.5MCG/BLISTER 7 PUFFS/INHALER INH SCH (07:51)
[2021-10-27] MEDS: GABAPENTIN 100 MG CAP PO SCH ×4 (07:51→20:33)
[2021-10-27] MEDS: FERROUS SULFATE 325 MG TAB PO SCH ×2 (07:51→20:33)
[2021-10-27] MEDS: INSULIN ASPART PER UNIT SC SCH ×4 (07:59→20:24)
--- NOTE | 2021-10-27 10:20 | Hospitalist Progress Note ---
Date of Service October 27, 2021 Assessment & Plan (1) Pneumonia: Plan: 60-year-old male w/ PMHx of severe bullous emphysema, COPD, and rheumatoid arthritis on MTX presenting to the hospital due to multifactorial (MRSA PNA, emphysema, mucous plugging) acute on chronic hypoxemic and hypercapnic respiratory failure. He required ICU care for intubation and was extubated on 10/20/21 w/ improvement. Generalized Weakness/Deconditioning - Secondary to sepsis and acute on chronic hypoxemic and hypercapnic respiratory failure - Continue PT/OT, recommending continued PT/OT and inpatient rehab - Placement pending. Appreciate CM assistance. Normocytic Anemia, stable - Progressive normocytic anemia appreciated on admission (10.7 --> ~6.5 in AM of 10/23) - Positive hemoccult, s/p 2u pRBC transfusion on 10/23 - Patient does have history of cirrhosis and reported "10 years ago I've required transfusions due to bleeding," though no known h/o varices - CBC demonstrating stability at > 8 without signs or symptoms of anemia Acute on chronic hypoxemic and hypercapnic respiratory failure -- extubated 10/20 - s/p bronchoscopy 10/11, 10/14, 10/16 and 10/18; s/p extubation 10/20 - weaned to room air and currently maintaining O2 sat 90% on RA Sepsis secondary to MRSA PNA -- resolved - SIRS and SOFA met on admission in presence of elevated PCT, ESR, CRP - Source: Chest CT showing multifocal PNA - Quantiferon Gold - Indeterminate ; TB antigens negative ; unlikely TB per ID - ID consulted, reported 10/13: Secondary to MRSA PNA. Clindamycin to be completed today, 10/27. Hypotension -- resolved - Multifactorial - previously secondary to sedation + sepsis - Suspect softer pressures are now more d/t hypovolemia, reduced PO intake; lower suspicion anemia is related - Midodrine discontinued 10/26/21 - Continue prednisone taper, to be completed 10/29/21 YOON on CKD -- resolved - Baseline Cr ~1.0 Hyponatremia -- resolved Watery Stools -- resolved Chronic Conditions: COPD: w/ severe bullous emphysema, see above Alcohol use disorder in remission, cirrhosis: no known varices; complication of neuropathy; continue home dose gabapentin PAD: continue home dose statin + aspirin Depression/Anxiety: resumed venlafaxine, buspirone while intubated Rheumatoid arthritis: Hold MTX in the setting of sepsis secondary to bacterial infection. Plan to restart MTX on discharge. Chronic pain, Idiopathic Polyneuropathy: Resumed gabapentin, carbamazepine. Hold home opioid DM2: A1c 6.0. SSI. Glycemic management per pharmacy. Hypothyroidism: continue home levothyroxine GERD: Continue PPI while on steroids. CODE STATUS: Conditional code -- intubation only, no CPR FEN: DM2 DVT prophylaxis: Heparin 5000u q12 Dispo: med tele. Awaiting placement (2) Acute exacerbation of chronic obstructive pulmonary disease: (3) Respiratory failure: (4) History of alcohol use: (5) Rheumatoid arthritis: (6) Cirrhosis, alcoholic: (7) T2DM (type 2 diabetes mellitus): Admission and Anticipated Discharge Date Admission Date: October 08, 2021 Supervising Physician Co-Signing Physician Notes Resident Physician Supervision Note: I independently interviewed and examined the patient and verified the hinojosa history and physical, reviewed labs and image studies and agree with resident Dr. Vazquez findings and care plan. Subjective Patient seen and evaluated in room 253-2 this morning. He was sitting in chair at bedside. States that he is overall doing well. Does admit to persistent generalized weakness but has no other specific complaints or concerns. Is eating well. Sleeping well. Specifically denies CP, SOB, CORETZ, lightheadedness, dizziness, abd pain, nausea, or vomiitng. Review of Systems Review of Systems: as per HPI Physical Exam Physical Exam: GENERAL: Awake. No acute distress. Conversational. On room air. HENT: Moist mucous membranes. RESPIRATORY: Decreased air movement diffusely. No acute respiratory distress. Breathing unlabored. CARDIOVASCULAR: Regular rate and rhythm. ABDOMEN: Soft, non-tender and non-distended. Normal bowel sounds. EXTREMITIES: No edema. Non-tender. SKIN: Warm, dry. NEUROLOGIC: A/O x3. No focal neurological deficits. PSYCHIATRIC: Cooperative. Appropriate mood and affect. Results & Data Results & Data ([facility]) Vital Signs (Past 12 Hours) Vital Signs Temp Pulse Resp BP Pulse Ox 10/27/21 07:17 36.7 C 109 H 18 104/64 90 10/27/21 03:07 37 C 109 H 18 100/67 91 10/26/21 23:12 36.6 C 82 18 113/73 93 Laboratory Results 10/27/21 10/27/21 10/27/21 Range/Units 07:42 05:44 05:44 WBC 8.88 (4.8-10.8) K/uL RBC 2.90 L (4.7-6.1) M/uL Hgb 8.9 L (14.0-18.0) g/dL Hct 26.6 L (42-52) % MCV 91.7 (80-100) fL MCH 30.7 (25-34) pg MCHC 33.5 (32-36) g/dL RDW Std Deviation 54.4 H (36.4-46.3) fL RDW Coeff of Alix 16.6 H (11.5-14.5) % Plt Count 444 H (130-400) K/uL MPV 8.8 (7.4-10.4) fL Immature Gran % (Auto) 0.3 % Neut % (Auto) 75.3 % Lymph % (Auto) 14.6 % [place] % (Auto) 7.8 % Eos % (Auto) 1.7 % Baso % (Auto) 0.3 % Neut # (Auto) 6.68 H (1.4-6.5) K/uL Lymph # (Auto) 1.30 (1.2-3.4) K/uL [place] # (Auto) 0.69 H (0.11-0.59) K/uL Eos # (Auto) 0.15 (0-0.5) K/uL Baso # (Auto) 0.03 (0-0.2) K/uL Immature Gran # (Auto) 0.03 H (0.00-0.02) K/uL Sodium 131 L (136-145) mmol/L Potassium 4.1 (3.5-5.1) mmol/L Chloride 98 (98-107) mmol/L Carbon Dioxide 26 (21-32) mmol/L Anion Gap 7 (3-11) BUN 17 (6-23) mg/dl Creatinine 1.01 (0.6-1.4) mg/dl Est Cr Clr Drug Dosing 65.9 ml/min Est GFR ( Amer) 93.3 ml/min Est GFR (Non-Af Amer) 80.5 ml/min BUN/Creatinine Ratio 16.8 (10-20) Glucose 88 (70-99(Fasting)) mg/dl POC Glucose 101 H (70-99) mg/dl Calcium 8.6 (8.5-10.1) mg/dl 10/26/21 10/26/21 10/26/21 Range/Units 19:57 16:45 11:56 WBC (4.8-10.8) K/uL RBC (4.7-6.1) M/uL Hgb (14.0-18.0) g/dL Hct (42-52) % MCV (80-100) fL MCH (25-34) pg MCHC (32-36) g/dL RDW Std Deviation (36.4-46.3) fL RDW Coeff of Alix (11.5-14.5) % Plt Count (130-400) K/uL MPV (7.4-10.4) fL Immature Gran % (Auto) % Neut % (Auto) % Lymph % (Auto) % [place] % (Auto) % Eos % (Auto) % Baso % (Auto) % Neut # (Auto) (1.4-6.5) K/uL Lymph # (Auto) (1.2-3.4) K/uL [place] # (Auto) (0.11-0.59) K/uL Eos # (Auto) (0-0.5) K/uL Baso # (Auto) (0-0.2) K/uL Immature Gran # (Auto) (0.00-0.02) K/uL Sodium (136-145) mmol/L Potassium (3.5-5.1) mmol/L Chloride (98-107) mmol/L Carbon Dioxide (21-32) mmol/L Anion Gap (3-11) BUN (6-23) mg/dl Creatinine (0.6-1.4) mg/dl Est Cr Clr Drug Dosing ml/min Est GFR ( Amer) ml/min Est GFR (Non-Af Amer) ml/min BUN/Creatinine Ratio (10-20) Glucose (70-99(Fasting)) mg/dl POC Glucose 113 H 99 101 H (70-99) mg/dl Calcium (8.5-10.1) mg/dl Resident Activity Tracking Resident Involvement: Resident Care Provided Care Provided: Adult Hospital Medicine (1) Respiratory failure Chronicity: acute Respiratory failure complication: hypoxia Qualified Code(s): J96.01 - Acute respiratory failure with hypoxia (2) Pneumonia Laterality: left Lung location: upper lobe of lung Pneumonia type: due to unspecified organism Qualified Code(s): J18.9 - Pneumonia, unspecified organism
[2021-10-27] MEDS: oxyCODONE HCL IR 5 MG TAB (IMMEDIATE RELEASE) PO PRN (16:28)
[2021-10-27] MEDS: TAMSULOSIN HCL 0.4 MG CAP PO SCH (20:33)
[2021-10-27] MEDS: busPIRone 7.5 MG TAB PO SCH (20:33)
[2021-10-27] MEDS: ROSUVASTATIN CALCIUM 5 MG TAB PO SCH (20:34)
[2021-10-28] MEDS: LEVOTHYROXINE SODIUM 25 MCG TABLET PO SCH (06:04)
[2021-10-28] MEDS: INSULIN ASPART PER UNIT SC SCH ×2 (08:40→11:48)
[2021-10-28] MEDS: busPIRone 15 MG TAB PO SCH (08:43)
[2021-10-28] MEDS: MULTIVITAMIN TAB PO SCH (08:44)
[2021-10-28] MEDS: FOLIC ACID 1 MG TAB PO SCH (08:44)
[2021-10-28] MEDS: predniSONE 2.5 MG TAB PO SCH (08:44)
[2021-10-28] MEDS: ASPIRIN 81 MG ECTAB PO SCH (08:44)
[2021-10-28] MEDS: carBAMazepine 100 MG CHEW TAB PO SCH (08:45)
[2021-10-28] MEDS: CHOLECALCIFEROL 5,000 UNITS 125 MCG TAB PO SCH (08:45)
[2021-10-28] MEDS: HEPARIN SOD 5,000 UNIT/0.5 ML VIAL SQ SCH (08:46)
[2021-10-28] MEDS: GABAPENTIN 600 MG TAB PO SCH (08:46)
[2021-10-28] MEDS: MAGNESIUM OXIDE 400 MG TAB PO SCH (08:46)
[2021-10-28] MEDS: FERROUS SULFATE 325 MG TAB PO SCH (08:46)
[2021-10-28] MEDS: guaiFENesin 600 MG TABCR PO SCH (08:46)
[2021-10-28] MEDS: GABAPENTIN 100 MG CAP PO SCH (08:47)
[2021-10-28] MEDS: PANTOprazole 40 MG TAB PO SCH (08:47)
[2021-10-28] MEDS: VENLAFAXINE HCL 50 MG TAB PO SCH (08:48)
[2021-10-28] MEDS: UMECLIDINIUM BROMIDE 62.5MCG/BLISTER 7 PUFFS/INHALER INH SCH (08:48)
[2021-10-28] MEDS: oxyCODONE HCL IR 5 MG TAB (IMMEDIATE RELEASE) PO PRN (08:53)
--- NOTE | 2021-10-28 12:02 | Discharge Summary ---
Date of Service October 28, 2021 Admission HPI Per Admitting Provider 60-year-old male past medical history significant for COPD not on chronic oxygen therapy, alcohol use disorder in remission with liver cirrhosis, peripheral arterial disease, GERD, CKD stage III, DM2 presented to the ER for worsening dyspnea and cough at home. History is given by as patient is sleeping and hard to arouse. reports that patient has been on oxygen therapy after hospitalization about 2 years ago but was "able to be weaned off of oxygen a few months following that admission". He does not follow regularly with Pulmonology. He is on Spiriva and Breo daily, with nebulizers as needed. She does not report recent measured fevers, chest pain. He is still a current smoker though smokes less now than he did prior to his hospitalization in 2019. He has a history of several equivocal TB tests in the past. On arrival to ER patient was tachycardic, tachypneic, and hypotensive and noted to have leukopenia, VBG with pH 7.32, pCO2 51, pO2 46, HCO3 26. Creatinine elevated at 1.4. CRP, ESR, and procalcitonin elevated. Biofire negative. He was noted to have retractions and belly breathing, and so was placed on BIPAP for pressure support which improved his breathing. CXR revealed multifocal pneumonia with largest consolidation in KELLI. Patient was started on vanc/Zosyn after blood cultures were collected, and he was given 3L NSS due to hypotension. Hospitalist service was consulted for admission. Due to somnolence on my interview ICU provider was consulted. Principal Diagnosis MRSA pneumonia, sepsis Discharge Exam GENERAL: Awake. No acute distress. Conversational. On room air. HENT: Moist mucous membranes. RESPIRATORY: Unlabored respirations. Able to speak in full sentences without increased work of breathing. NEUROLOGIC: A/O x3. PSYCHIATRIC: Cooperative. Appropriate mood and affect. Discharge Data Allergies Allergy/AdvReac Type Severity Reaction Status Date / Time pregabalin Allergy Severe ANAPHYLAXIS Verified 10/08/21 21:25 Consultations 10/08/21 21:55 ED Decision to Admit Stat 10/09/21 00:12 Consult Shop Girl Routine 10/09/21 09:47 Consult Infectious Diseases Routine 10/11/21 06:01 Consult Shop Girl Routine 10/20/21 09:45 Consult Palliative Care Routine Ordered Studies 10/08/21 23:41 CT chest diagnostic wo con Urgent 10/11/21 06:49 US point of care ultrasound Routine Hospital Course (1) Pneumonia: 60-year-old male w/ PMHx of severe bullous emphysema, COPD, and rheumatoid arthritis on MTX presenting to the hospital due to multifactorial (MRSA PNA, emphysema, mucous plugging) acute on chronic hypoxemic and hypercapnic respiratory failure. He required ICU care for intubation and was extubated on 10/20/21 w/ improvement. Acute on chronic hypoxemic and hypercapnic respiratory failure -- extubated 10/20 - s/p bronchoscopy 10/11, 10/14, 10/16 and 10/18; s/p extubation 10/20 - weaned to room air and currently maintaining O2 sat 90% on RA - Discharged home with supplemental O2 via NC at 2L during ambulation/activity Sepsis secondary to MRSA PNA -- resolved - SIRS and SOFA met on admission in presence of elevated PCT, ESR, CRP - Source: Chest CT showing multifocal PNA - Quantiferon Gold - Indeterminate ; TB antigens negative ; unlikely TB per ID - ID consulted, reported 10/13: Secondary to MRSA PNA. Clindamycin completed 10/27. Hypotension -- resolved - Multifactorial - previously secondary to sedation + sepsis - Suspect softer pressures are now more d/t hypovolemia, reduced PO intake; lower suspicion anemia is related - Midodrine discontinued 10/26/21 - Continue prednisone taper, to be completed 10/29/21 (discharged home with rx for prednisone 5mg x1). YOON on CKD -- resolved - Baseline Cr ~1.0 Hyponatremia -- resolved Watery Stools -- resolved Generalized Weakness/Deconditioning - Secondary to sepsis and acute on chronic hypoxemic and hypercapnic respiratory failure - Patient discharged home with home health services and O2 2L w/ ambulation/activity. - Unfortunately, after patient was discharged, I was notified that there is no home health available in patient's area. Encourage PCP to f/u with patient regarding home health needs. Normocytic Anemia, stable - Progressive normocytic anemia appreciated on admission (10.7 --> ~6.5 in AM of 10/23) - Positive hemoccult, s/p 2u pRBC transfusion on 10/23 - Patient does have history of cirrhosis and reported "10 years ago I've required transfusions due to bleeding," though no known h/o varices - CBC demonstrating stability at > 8 without signs or symptoms of anemia Chronic Conditions: COPD: w/ severe bullous emphysema, see above Alcohol use disorder in remission, cirrhosis: no known varices; complication of neuropathy; continue home dose gabapentin PAD: continue home dose statin + aspirin Depression/Anxiety: continue venlafaxine and buspirone Rheumatoid arthritis: MTX held in the setting of sepsis secondary to bacterial infection. Restarted MTX on discharge. Chronic pain, Idiopathic Polyneuropathy: Resumed gabapentin, carbamazepine. Restarted home opioid on discharge DM2: A1c 6.0. Hypothyroidism: continue home levothyroxine GERD: Continue PPI while on steroids. CODE STATUS: Conditional code -- intubation only, no CPR FEN: DM2 Dispo: home with home health services (2) Acute exacerbation of chronic obstructive pulmonary disease: (3) Respiratory failure: (4) History of alcohol use: (5) Rheumatoid arthritis: (6) Cirrhosis, alcoholic: (7) T2DM (type 2 diabetes mellitus): Total Time Total Time Spent Total Time Spent (In Minutes): See attending attestation Discharge Plan Discharge Items Patient Disposition: Home - Home Health Services Reason For Visit: ACUTE HYPOXIC RESPIRATORY FAILURE Discharge Diagnosis: sepsis, MRSA pneumonia Condition on Discharge: Fair Activity: Per Instructions section Non-emergency contact: Primary Care Provider Call non-emergency contact if: you have any medication questions and your symptoms worsen Follow-up/Referrals: Michelle Campos DO [Primary Care Provider] - 11/03/21 9:20 am Diet: Carb Consistent or DM2 Addtl Attending Provider Instructions: You were seen in [facility] for evaluation of shortness of breath. Upon your arrival here, you underwent extensive evaluation to determine the cause of your symptoms. You were found to have evidence of a severe pneumonia and, as a result, an exacerbation of your COPD. You completed a ntibiotic therapy for the pneumonia on 10/27/21. Because your respiratory status was so fragile and because you were showing significant distress, you and your provider team decided next stepswhich included intubation (putting a breathing tube during your throat) and mechanical ventilation (using a breathing machine help your lungs function while you were sedated). During this time, you were managed in the ICU. Infectious disease doctors saw you, who aided in your care and recommended specific antibioticswhich you tolerated well. You were successfully extubated (breathing tube removed, mechanical ventilation stopped) and tolerated transition to lower forms of oxygen (oxygen mask, nasal cannula) very well. You ultimately were able to return to room air (no additional oxygen support needed) and have continued to do well. However, it was determined that you need extra oxygen during periods of walking/activity. You are being discharged home with an oxygen tank and should use 2 liters Oxygen when walking/during activity. During your recovery from this, you were found to have low blood counts. This was thought to be due to malnutrition endured during her illness (despite artificial nutrition), as well as frequent blood draws (necessary to ensure adequate care). As such, you did require 2units of transfusion of blood, which you tolerated very well. You should continue to engage with physical and occupational therapy to regain your strength. Upon discharge, your team felt you were stable for discharge to home with the support of your family and home health services. Please follow-up with your primary care physician within the next week to review this visit. If you experience any worsening shortness of breath, fever, chills, chest pain, palpitations, intractable nausea or vomiting, or other worrisome symptoms, please seek medical attention; if your symptoms are severe, please report to the ER immediately for evaluation. It was a pleasure caring for you while here, and we wish you all the best in your continued recovery. Pending Studies at Discharge: No Stand-Alone Forms: My [facility], Smoking Cessation Medications and DC Order Prescriptions: New buspirone 7.5 mg Tablet 7.5 mg PO HS 30 Days Qty: 30 RF: 0 prednisone 2.5 mg Tablet 5 mg PO DAILY 1 Days Qty: 2 RF: 0 Continued ipratropium-albuterol 0.5 mg-3 mg(2.5 mg base)/3 mL solution for nebulization 3 ml inhalation Q6H PRN (Reason: Shortness Of Breath Or Wheezing J44.9;j44.1) Qty: 3 RF: 5 gabapentin 600 mg tablet 600 mg PO QID Qty: 120 RF: 5 levothyroxine 25 mcg tablet 25 mcg PO QAM Qty: 90 RF: 1 gabapentin 100 mg capsule 100 mg PO QID Qty: 360 RF: 1 pantoprazole 40 mg tablet,delayed release (DR/EC) 40 mg PO QPM Qty: 90 RF: 1 sennosides 8.6 mg tablet 8.6 mg PO BID Qty: 60 RF: 5 ferrous sulfate 325 mg (65 mg iron) tablet 325 mg PO BID Qty: 60 RF: 5 methotrexate sodium 2.5 mg tablet 15 mg PO WK 30 Days Qty: 180 RF: 1 tamsulosin 0.4 mg capsule 0.4 mg PO PM Qty: 90 RF: 1 buspirone 15 mg tablet 15 mg PO TID Qty: 90 RF: 5 oxycodone 10 mg tablet 10 mg PO TID PRN (Reason: pain) Qty: 90 RF: 0 Breo Ellipta 100-25 mcg/dose blister with device 1 inh INHALATION QAM Qty: 60 RF: 5 Spiriva with HandiHaler 18 mcg capsule, w/inhalation device 1 cap inhalation QAM Qty: 30 RF: 5 carbamazepine 100 mg tablet,chewable 100 mg PO BID Qty: 60 RF: 3 rosuvastatin [Crestor] 5 mg tablet 5 mg PO PM Qty: 90 RF: 3 docusate sodium 100 mg capsule 100 mg PO BID Qty: 180 RF: 3 aspirin 81 mg tablet,delayed release (DR/EC) 81 mg PO QAM RF: 0 folic acid 1 mg tablet 1 mg PO QAM RF: 0 cholecalciferol (vitamin D3) 125 mcg (5,000 unit) tablet 5,000 unit PO QAM RF: 0 Changed venlafaxine 75 mg capsule,extended release 24hr 75 mg PO TID Qty: 90 RF: 1 Discontinued venlafaxine 150 mg capsule,extended release 24hr 150 mg PO QAM Qty: 90 RF: 5 mirtazapine 30 mg tablet 30 mg PO HS Qty: 90 RF: 1 Discharge Orders: Discharge Order (Routine); Ordered 10/28/21 Ordered By: Ophelia Peterson/Other Patient Handouts: Managing Type 2 Diabetes, Oxygen Supplemental Admission Data Admit Date/Time: 10/08/21 22:50 Attending Provider: Bella Steinberg Admit Provider: Cecy Christianson Primary Care Provider: Michelle Campos Other Providers: Zackery Mota ; Bhargav Downing ; Flakito Chavira ; Derrell Perez ; Mehdi Sterling ; [place] ; Cole Fuller I. ; Gurpreet Cardona II ; Chaparrita Spencer ; Nathan Jimenez ; Mikhail Dinero ; Margy Arthur ; Anton Perea [facility] Other Interventions: Discharge Summary Assessment (RN) Last Done: 10/28/21 12:28 Supervising Physician Co-Signing Physician Notes Resident Physician Supervision Note: I independently interviewed and examined the patient and verified the hinojosa history and physical, reviewed labs and image studies and agree with resident Dr. Vazquez findings and care plan. Resident Activity Tracking Resident Involvement: Resident Care Provided Care Provided: Adult Hospital Medicine
--- NOTE | 2021-10-28 12:29 | Palliative Care Progress Note ---
Date of Service October 28, 2021 Assessment & Plan (1) Respiratory failure: Plan: Acute exacerbation improved. Back to baseline (2) Palliative care encounter: (3) Acute exacerbation of chronic obstructive pulmonary disease: Plan: s/p VDRF with intubation. He has consistently said that he would want reintubation and wants to be alive to spend more time with his 7 yo granddaughter. 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 He has discussed this with his so that she understands his wishes. He has a juan jose ng will which says no resuscitation but says that is no longer how he feels. He is planning to discuss further with his and generate a new living will after he returns home. Plan for discharge to home today. (4) MRSA pneumonia: Admission and Anticipated Discharge Date Admission Date: October 08, 2021 Subjective Sitting up in chair. Off O2. Denies feeling short of breath. Ambulating in hallway. Review of Systems 2 Review of Systems: [place] Symptom Assessment Scale Pain 0/3 Dyspnea 0/3 Anxiety 0/3 Fatigue 1/3 Drowsiness 0/3 Palliative Performance Score 50% Physical Exam Constitutional: + frail appearing; no acute distress ENMT: Mouth: oral mucous membranes not dry Respiratory: normal respiratory effort; no labored breathing at rest Musculoskeletal: Extremities: + muscle atrophy ulnar deviation of UE digits Skin: warm and dry Neurologic: awake; no focal motor deficits and not confused Psychiatric: A+Ox3, euthymic affect Genitourinary: continent Results & Data ([facility]) Vital Signs (Past 12 Hours) Vital Signs Temp Pulse Pulse Pulse Pulse Pulse Resp 10/28/21 10:30 135 H 138 H 126 H 113 H 10/28/21 07:21 98.1 F 104 H 18 Resp Resp Resp Resp BP Pulse Ox Pulse Ox 10/28/21 10:30 22 22 20 16 92 10/28/21 07:21 103/61 91 Pulse Ox Pulse Ox Pulse Ox 10/28/21 10:30 87 L 92 92 10/28/21 07:21 PG Care Time/CCT Total # of Minutes Spent Total Time Spent with Patient: Total time spent is greater than 50% in coordination of care (as documented) at patient's floor/unit and/or counseling patient: Coding Level of Care Code 58035 Subseq Hosp Care Lvl 2 Diagnoses Respiratory failure J96.01 Chronicity: acute Respiratory failure complication: hypoxia Palliative care encounter Z51.5 Acute exacerbation of chronic obstructive pulmonary disease J44.1 MRSA pneumonia J15.212 (1) Respiratory failure Chronicity: acute Respiratory failure complication: hypoxia Qualified Code(s): J96.01 - Acute respiratory failure with hypoxia
== END 2021-10-28 13:01 | disposition home health service (06) | DRG 870 ==
LOC: EDSEX → ED 19:39 → MERGE 19:39 → 1E 22:50 → SUATTDRO 22:50 → 1E 23:54 → 2N 10-23 18:57 → 2W 10-24 23:04

== ENCOUNTER 2022-03-13 18:03 | Inpatient (IN) ==
[2022-03-13] MEDS ORDERED: SODIUM CHLORIDE 0.9% 500 ML IV SCH (18:45)
[2022-03-13 18:57] LABS: Basophils # (auto) 0.02 K/uL (0-0.2); Basophils % (auto) 0.3 %; Eosinophils # (auto) 0.07 K/uL (0-0.50); Eosinophils % (auto) 0.9 %; Hematocrit (blood only) 22.8 % (40.1-51.0); Immature Granulocytes # (auto) 0.08 K/uL (0.00-0.02); Immature Granulocytes % (auto) 1.1 %; Lymphocytes # (auto) 0.39 K/uL (1.2-3.4); Lymphocytes % (auto) 5.3 %; Mean Corpuscular Hemoglobin 36.2 pg (25.0-34.0); Mean Corpuscular Hgb Conc 35.1 g/dL (32.0-36.0); Mean Corpuscular Volume 103.2 fL (80.0-100.0); Mean Platelet Volume 8.7 fL (9.4-12.4); Monocytes # (auto) 0.51 K/uL (0.24-0.82); Monocytes % (auto) 6.9 %; Neutrophils # (auto) 6.32 K/uL (1.4-6.5); Neutrophils % (auto) 85.5 %; Platelet Count 252 K/uL (130-400); RDW Coefficient of Variation 17.9 % (11.5-14.5); RDW Standard Deviation 67.6 fL (36.4-46.3); Red Blood Count 2.21 M/uL (4.63-6.08); White Blood Count 7.39 K/ul (4.8-10.8)
[2022-03-13 19:09] LABS: INR 1.1 (0.9-1.1); Partial Thromboplastin Ratio 1.2; Partial Thromboplastin Time 32.1 Seconds (21.0-31.0); Prothrombin Time 11.2 Seconds (9.0-12.0)
--- NOTE | 2022-03-13 19:13 | XRay Report ---
XR pelvis 1-2V routine, XR femur LT 2V routine CLINICAL HISTORY: fall TECHNIQUE: A single frontal view of the pelvis was obtained. Views of the left femur were obtained. Comparison: Comparison is made to pelvic radiograph 12/10/2021 FINDINGS: Bilateral total hip arthroplasties are seen. There is an acute fracture in the proximal left femur wh ich is minimally displaced and seen on the femur radiographs only. Degenerative changes are seen in t he hip joints and lumbar spine. Soft tissue swelling is seen. IMPRESSION: There is a comminuted, minimally displaced fracture of the proximal left femur at the greater trochan ter. Bilateral total hip arthroplasties are seen. ACT 112: Negative or not required by law. Electronically signed by: Emre Medeiros M.D. 03/13/2022 7:12 PM
--- NOTE | 2022-03-13 19:15 | XRay Report ---
XR elbow LT min 3V routine CLINICAL HISTORY: fall TECHNIQUE: 3 views of the left elbow were obtained. Comparison: None available at the time of this dictation. FINDINGS: There is no evidence of an acute fracture. Joint spaces are well-preserved. There is no prominence of the anterior or posterior fat pads to suggest an effusion. No soft tissue abnormality is seen. IMPRESSION: No evidence of acute osseous injury. ACT 112: Negative or not required by law. Electronically signed by: Emre Medeiros M.D. 03/13/2022 7:13 PM
--- NOTE | 2022-03-13 19:17 | XRay Report ---
XR chest 1V portable CLINICAL HISTORY: fall TECHNIQUE: Single frontal radiograph of the chest was obtained. Comparison: Comparison is made to chest radiograph 10/20/2021 FINDINGS: No lines and tubes are seen. The cardiomediastinal silhouette is normal. Severe emphysematous changes are seen. Linear densities in the right midlung are unchanged. Scarring is noted in the left upper l obe and there is a large bleb in the left apex. No evidence of pleural effusion or pneumothorax. Heal ed rib fractures are seen. IMPRESSION: 1. Redemonstration of emphysematous and scarring changes. ACT 112: Negative or not required by law. Electronically signed by: Emre Medeiros M.D. 03/13/2022 7:16 PM
[2022-03-13 19:19] LABS: Calcium 8.3 mg/dl (8.5-10.1); Creatinine Clr Calc Pharmacy 74.3 ml/min; Est GFR (African American) 102.3 ml/min; Est GFR (Non-African American) 88.3 ml/min; Potassium 4.8 mmol/L (3.5-5.1)
[2022-03-13] MEDS ORDERED: ONDANSETRON INJ 2 MG/ML 2 ML VIAL IV STA (19:40)
[2022-03-13] MEDS ORDERED: MoRPHine SULFATE 4 MG/ML 1 ML CARP\\VIAL IV STA (19:40)
[2022-03-13] MEDS ORDERED: IOVERSOL 350 MG 100mL Prefilled Syringe IV ONE (20:26)
--- NOTE | 2022-03-13 20:47 | CT Scan Report ---
CT head/brain wo con CLINICAL HISTORY: fall Technique: Contiguous axial CT images of the head were acquired from the base of the skull to the senthil ángel without intravenous contrast administration. Images were viewed in brain, subdural and bone [facility]. Automated dose lowering techniques and/or adjustment according to patient size were utilized for this exam. Comparison: None available at the time of this dictation. Findings: Areas of decreased attenuation are present in the periventricular and subcortical white matter bilate rally consistent with small vessel ischemic disease. Generalized cerebral atrophy with commensurate e nlargement of the ventricles, sulci, and cisterns is also present. There is no acute intracranial hem orrhage or evidence of acute territorial infarction. No shift of the midline structures, mass effect, or extra-axial abnormalities are shown. Atherosclerotic calcifications are present in the intracran ial segments of the internal carotid arteries. Encephalomalacia is in the right frontal lobe. Imaged portions of the paranasal sinuses and mastoid air cells are clear. The orbits appear normal. There are no acute fractures of the calvaria or scalp swelling. Impression: No acute intracranial hemorrhage, no evidence of acute territorial infarction or other acute intracra nial disease process. ACT 112: Negative or not required by law. Electronically signed by: Emre Medeiros M.D. 03/13/2022 8:46 PM
--- NOTE | 2022-03-13 20:52 | CT Scan Report ---
CT cervical spine wo con CLINICAL HISTORY: fall TECHNIQUE: Multidetector row helical CT of the cervical spine was performed without administration of intravenous contrast. Coronal and sagittal reformations were obtained. Automated dose lowering techn iques and/or adjustment according to patient size were utilized for this exam. Comparison: None available at the time of this dictation. FINDINGS: No acute fractures or subluxations are identified. Degenerative changes are seen in the visualized sp ine. Grade 1 anterolisthesis is seen at C3-C4. 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 Emphysema is seen. IMPRESSION: Degenerative changes without evidence of acute bony injury. ACT 112: Negative or not required by law. Electronically signed by: Emre Medeiros M.D. 03/13/2022 8:49 PM
--- NOTE | 2022-03-13 21:00 | CT Scan Report ---
CT chest diagnostic w con CLINICAL HISTORY: fall TECHNIQUE: Multidetector row helical CT of the chest was performed with intravenous contrast. Coronal and sagittal reformations were obtained. Automated dose lowering techniques and/or adjustment accord ing to patient size were utilized for this exam. CT DOSE: 538.05 mGy.cm Comparison: None available at the time of this dictation. FINDINGS: Lungs and pleura: Paraseptal emphysema and interstitial thickening is seen. Stable 10 mm nodule in th e right upper lobe (image 112 of series 6). Redemonstration of left pleural gas. Heart and pericardium: Heart size is normal. No pericardial effusion. Vessels: Unremarkable. Mediastinum and guerrero: Subcentimeter lymph nodes are seen. Chest wall and lower neck: Gynecomastia is noted bilaterally. Abdomen: For findings below the diaphragm, please refer to CT of the abdomen dated the same. Bones: Degenerative changes in the thoracic spine. Old healed fractures are seen in the anterolateral aspect of the right fourth, fifth, and sixth ribs. Healing fractures are seen in the left anterior f ourth and fifth ribs. Degenerative changes are seen in the left shoulder joint. IMPRESSION: 1. Healing fractures are seen in the bilateral anterolateral ribs. No evidence of acute fracture is seen. 2. Severe emphysema and scarring. 3. Redemonstration of left pleural gas which may possibly represent bronchopleural fistula. ACT 112: Negative or not required by law. Electronically signed by: Emre Medeiros M.D. 03/13/2022 8:57 PM
--- NOTE | 2022-03-13 21:11 | CT Scan Report ---
CT abd pelvis IV con only CLINICAL HISTORY: fall TECHNIQUE: Helical axial images of the abdomen and pelvis were obtained and displayed. Automated dose lowering techniques and/or adjustment according to patient size were utilized for this exam. This e xam was performed with intravenous contrast. COMPARISON: Comparison is made to CT abdomen pelvis 08/12/2015 FINDINGS: Lower chest: Emphysema and thickening of the interstitium is noted. Liver: Unremarkable. No focal lesions are seen. Gallbladder and biliary tree: No calcified gallstones. Normal caliber wall. No intra- or extrahepatic biliary ductal dilation. Pancreas: Unremarkable, no focal lesions. Spleen: Unremarkable. Adrenals: Unremarkable. Kidneys and ureters: There is a 19 mm cyst in the right kidney. Additional hypodensities are seen. Bladder: Unremarkable. Reproductive organs: Unremarkable. Bowel: Diverticulosis is seen without evidence of diverticulitis. The appendix is normal. Lymph nodes Retroperitoneal: Unremarkable. Pelvic: Unremarkable. Mesenteric: Unremarkable. Peritoneum: Trace fluid is in the peritoneum. Vessels: Atherosclerotic calcifications are seen. Abdominal wall: Unremarkable. Bones: Bilateral total hip arthroplasties are seen. Fractures are seen in the right transverse proces s of L5 as well as in the right sacral body. The sacral fracture does not appear to extend into the n eural foramen. IMPRESSION: 1. Acute fractures of the right sacrum and right transverse process of L5. 2. Status post bilateral total hip arthroplasty. 3. Diverticulosis is seen without evidence of diverticulitis. 4. Additional findings as above. ACT 112: Negative or not required by law. Electronically signed by: Emre Medeiros M.D. 03/13/2022 9:09 PM
[2022-03-13] MEDS ORDERED: MoRPHine SULFATE 4 MG/ML 1 ML CARP\\VIAL IV PRN (21:28)
[2022-03-13] MEDS ORDERED: MoRPHine SULFATE 2 MG/ML CARP IV PRN (21:28)
--- NOTE | 2022-03-13 22:32 | History & Physical Report ---
Date of Service March 13, 2022 Assessment & Plan (1) Femur fracture, left: Plan: Left femur fracture- N.p.o. for possible orthopedic surgery, surgeon is aware Acetaminophen 1 g IV every 8 hours as needed for mild pain or fever Morphine sulfate 2 mg IV every 3 hours as needed moderate pain Morphine sulfate 2 mg IV every 3 hours as needed for severe pain Geriatric hip fracture protocol order set (2) Closed fracture of sacrum: Plan: Pain management as above (3) Closed L5 vertebral fracture: Plan: Pain management as above (4) Acute hyponatremia: Plan: Sodium 121 Serum osmolality 257 Urine osmolality 227 Suggesting polydipsia Fluid restriction to 1200 cc. The patient had already received 500 cc normal saline from the ED furosemide 20mg IV x 1 Sodium chloride 1 g p.o. twice daily Serial BMP and magnesium levels (5) B12 deficiency: (6) Chronic pain syndrome: Plan: Adjusting IV medications as noted above (7) Rheumatoid arthritis: (8) Acid reflux: Plan: Continue pantoprazole (9) Anxiety: Plan: Anxiety/depression/seizure disorder- Continue buspirone, carbamazepine, and venlafaxine. (10) Benign prostate hyperplasia: Plan: Continue tamsulosin (11) Chronic obstructive pulmonary disease: Plan: Continue routine inhalers (12) Cirrhosis, alcoholic: Plan: Normal LFTs, follow serial laboratories (13) Chronic kidney disease, stage III (moderate): Plan: Creatinine within baseline (14) Hypothyroidism: Plan: Continue levothyroxine (15) Depression: (16) Primary osteoarthritis, left shoulder: (17) Rotator cuff arthropathy of left shoulder: History of Present Illness Chief Complaint: The patient reports that he was up 3 feet high on a ladder, tilted his head back somewhat to look up, became dizzy, and the next thing he knew he was on the ground and had left hip pain, elbow pain and pelvic/groin pain Primary Care Provider: Michelle Campos DO The patient is a 61-year-old male with a past medical history including B12 deficiency, anemia, osteonecrosis of left ankle and foot, insomnia, lumbar degenerative disc disease, hand dermatitis, vitamin D deficiency, left shoulder osteoarthritis and rotator cuff arthropathy, idiopathic polyneuropathy, lumbar radiculopathy, PAD, RA, GERD, anxiety, BPH, Charcot joint, CKD stage III, COPD, alcoholic cirrhosis, depression, hypothyroidism, diabetes mellitus type 2, alcoholic neuropathy and chronic respiratory failure with hypoxia. Patient reports falling off a ladder as noted above. Radiology studies in ED revealed the following: CT head negative, CT cervical spine negative, left elbow showed no fractures, chest x-ray showed emphysema and scarring, and CT scan of abdomen and pelvis showed a proximal comminuted left femur greater trochanter fracture, fracture of the right sacrum and right L5 transverse process fracture, CT scan of chest showed right 4 through 6 and left 4 through 5 healing rib fractures Allergies Allergy/AdvReac Type Severity Reaction Status Date / Time pregabalin Allergy Severe ANAPHYLAXIS Verified 03/13/22 22:42 Home Medications Medication Instructions Recorded Confirmed Type fluticasone furoate 100 1 inh inhalation QAM #60 ea 04/29/20 01/21/22 Rx mcg-vilanterol 25 mcg/dose inhalation powder (Breo Ellipta) aspirin 81 mg tablet,delayed 81 mg PO QAM 05/19/21 01/21/22 History release cholecalciferol (vitamin D3) 125 5,000 unit PO QAM 05/19/21 01/21/22 History mcg (5,000 unit) tablet folic acid 1 mg tablet 1 mg PO QAM 05/19/21 01/21/22 History gabapentin 100 mg capsule 100 mg PO QID #360 caps 06/30/21 01/21/22 Rx pantoprazole 40 mg tablet,delayed 40 mg PO QPM #90 tabs 06/30/21 01/21/22 Rx release sennosides 8.6 mg tablet 8.6 mg PO BID #60 tabs 07/01/21 01/21/22 Rx docusate sodium 100 mg capsule 100 mg PO BID #180 caps 07/24/21 01/21/22 Rx rosuvastatin 5 mg tablet (Crestor) 5 mg PO PM #90 tabs 07/24/21 01/21/22 Rx methotrexate sodium 2.5 mg tablet 15 mg PO WK 30 days #180 tabs 09/22/21 01/21/22 Rx tamsulosin 0.4 mg capsule 0.4 mg PO PM #90 caps 09/22/21 01/21/22 Rx buspirone 15 mg tablet See Rx Instructions .Route 11/03/21 01/21/22 Rx .COMPLEX #90 tabs venlafaxine 75 mg capsule,extended 75 mg PO TID #90 caps 12/02/21 01/21/22 Rx release 24 hr gabapentin 600 mg tablet 600 mg PO QID #120 tabs 02/03/22 Rx oxycodone 10 mg tablet 10 mg PO TID PRN pain #90 tabs 02/17/22 Rx ipratropium 0.5 mg-albuterol 3 mg 3 ml inhalation Q6H PRN Shortness 02/25/22 Rx (2.5 mg base)/3 mL nebulization Of Breath Or Wheezing J44.9;j44.1 soln #3 mL carbamazepine 100 mg chewable 200 mg PO BID 03/13/22 03/13/22 History tablet levothyroxine 25 mcg tablet 25 mcg PO DAILYBB 03/13/22 03/13/22 History Past Med/Surg History Medical History Acid reflux Stable and controlled per patient Anemia Anxiety Benign prostate hyperplasia Charcot's joint of foot, non-diabetic Chronic kidney disease, stage III (moderate) Chronic obstructive pulmonary disease Chronic pain syndrome Multifactorial in nature- LDD, neuropathy, OA, RA Cirrhosis, alcoholic HX OF (LAST ETOH 10 YEARS AGO) Follows with GI routinely Depression Flexion deformity of hand Unable to fully extend 4th and 5th digits of left hand History of stroke 2011 - NO PHYSICAL RESIDUAL EFFECTS, MEMORY PROBLEM FOLLOWING - HAS RECOVERED SOME BUT NOT ENTIRELY Hypothyroidism Hypoxemic respiratory failure, chronic resolved per pt Lumbar disc herniation with radiculopathy Neuropathy, alcoholic Fair control On gabapentin On home oxygen therapy 2L n/c at HS and prn Peripheral arterial disease Stable per 03/2021 PCP note- no significant blockage with LE angiogram in 12/2020 Portal hypertension Rheumatoid arthritis Follows with rheum - [facility] T2DM (type 2 diabetes mellitus) NIDDM > diet controlled Glucose stable Surgical History H/O hand surgery (02/07/21) R index, middle, ring and small finger MCP joint silicone implant arthroplasties w/ extensor tendon centralization H/O oral surgery ALL TEETH OUT History of bronchoscopy (~09/2021) History of esophagogastroduodenoscopy (EGD) Hx of surgical procedure (12/2020) Angio Extremity > bilat legs Hx of umbilical hernia repair 11/14/12 S/P epidural steroid injection Status post left hip replacement (01/2018) Status post right hip replacement (10/2018) Status post-operative repair of closed fracture of left hip (2012) IM nail placement L hip Family History Father Family history of cardiac pacemaker Coronary heart disease Aneurysm Cardiac pacemaker Hx of CABG Mother Family history of cardiac pacemaker Diabetes Cardiac pacemaker Hypertension Brother Diabetes Other Family history non-contributory No family history of adverse response to anesthesia Denies family history of Colon cancer Ovarian cancer Prostate cancer Myocardial infarction Breast cancer Social History Smoking Status: Current every day smoker Tobacco Type: Cigarettes Age Started Using Tobacco: 13; packs per day: 0.25; Cigarettes Per Day: 0.5 pack a day; Second Hand Exposure: No; Do You Dip or Chew Tobacco: No; Tobacco Cessation Education Requested by Patient: No Hx Alcohol Use: Yes Alcohol type: beer Hx Substance Use: Yes Prescribed Medications: Opiates Substance Use Type Other:: couple times a week Preferred Language: Cambodian Communication Ability: Effective Visual Impairment: No Limitations Hearing Ability: Normal Automation Operator Required: No Beliefs That Will Affect Care: None marital status: marital status details: 1 son, 3 daughters Current Living Situation: Spouse and Family Current Living Situation Comment: 1 Story home current occupational status: unemployed and disabled How many Children do You have: 5 Other Information That Helps Us Care for You: No Feels Safe at Home: Yes Safety Concerns: Feels Safe At This Time Childhood Exposure to Second-Hand Smoke: Yes Diet Comment: regular caffeine: Yes during the past year weight has: remained stable Dental Care, Regularly: No Physical Activity Frequency: Does not Exercise Seatbelt Use: never Sunscreen Use: No Assistive Devices: Oxygen - Continuous, Raised Toilet Seat and Wheelchair Assistive Devices Comment: Shower bench Review of Systems Review of Systems: The patient denies chest pain, palpitations, shortness of breath, dyspnea on exertion, cough, lower extremity swelling, sore throat, fevers, chills, sweats, weight change, fatigue, nausea, vomiting, diarrhea , constipation, abdominal pain, pelvic pain, blood in urine or stool, dysuria, urinary frequency or urgency, memory loss, loss of consciousness, rash, abnormal bruising or bleeding, focal or generalized weakness, numbness or tingling in arms, generalized arthralgias or myalgias, neck pain, or night sweats. The review of systems is otherwise negative other than for that already noted above, and at least 10 systems have been reviewed. Physical Exam Physical Exam: The patient is awake, alert and oriented 3, well developed and well nourished, normocephalic and atraumatic, lying in bed and in no acute distress. HEENT--PERRL, EOMI, mucous membranes and oropharynx dry. Neck--supple. No JVD. No bruits. Thyroid normal, trachea midline, no adenopathy. Heart--normal S1 and S2. No murmurs, rubs or gallops. Lungs--clear bilaterally, no respiratory distress, no accessory muscle use. Abdomen--normal bowel sounds and soft. Nontender. Nondistended, no hernias or masses, no organomegaly. Extremities--no cyanosis or clubbing. No edema. Dermatologic--normal skin turgor, normal color, no abnormal lymph nodes, no rash. Neurologic--cranial nerves II through XII grossly intact. Rheumatologic--limited exam due to pain Psychiatric--normal affect. Results & Data Results & Data ([facility]) Vital Signs (Past 12 Hours) Vital Signs Temp Pulse Pulse Resp BP BP Pulse Ox 03/13/22 20:42 76 13 126/74 99 03/13/22 18:53 78 22 92 03/13/22 18:16 82 22 133/76 96 03/13/22 18:09 36.1 C L 79 22 133/76 96 O2 Del Method O2 Flow Rate 03/13/22 20:42 Room Air 03/13/22 18:53 Room Air 03/13/22 18:16 Nasal Cannula 2 03/13/22 18:09 Nasal Cannula Laboratory Results Laboratory Results WBC 7.39 K/ul (4.8-10.8) 03/13/22 18:25 RBC 2.21 M/uL (4.63-6.08) L 03/13/22 18:25 Hgb 8.0 g/dl (14.0-18.0) L 03/13/22 18:25 Hct 22.8 % (40.1-51.0) L 03/13/22 18:25 MCV 103.2 fL (80.0-100.0) H 03/13/22 18: MCH 36.2 pg (25.0-34.0) H 03/13/22 18: MCHC 35.1 g/dL (32.0-36.0) 03/13/22 18: RDW Std Deviation 67.6 fL (36.4-46.3) H 03/13/22 18: RDW Coeff of Alix 17.9 % (11.5-14.5) H 03/13/22 18: Plt Count 252 K/uL (130-400) 03/13/22 18: MPV 8.7 fL (9.4-12.4) L 03/13/22 18: Immature Gran % (Auto) 1.1 % 03/13/22 18: Neut % (Auto) 85.5 % 03/13/22 18: Lymph % (Auto) 5.3 % 03/13/22 18: Pershing % (Auto) 6.9 % 03/13/22 18: Eos % (Auto) 0.9 % 03/13/22 18: Baso % (Auto) 0.3 % 03/13/22 18: Neut # (Auto) 6.32 K/uL (1.4-6.5) 03/13/22 18: Lymph # (Auto) 0.39 K/uL (1.2-3.4) L 03/13/22 18: Pershing # (Auto) 0.51 K/uL (0.24-0.82) 03/13/22 18: Eos # (Auto) 0.07 K/uL (0-0.50) 03/13/22 18: Baso # (Auto) 0.02 K/uL (0-0.2) 03/13/22 18: Immature Gran # (Auto) 0.08 K/uL (0.00-0.02) H 03/13/22 18: PT 11.2 Seconds (9.0-12.0) 03/13/22 18:25 INR 1.1 (0.9-1.1) 03/13/22 18: APTT 32.1 Seconds (21.0-31.0) H 03/13/22 18: PTT Ratio 1.2 03/13/22 18:25 Sodium 121 mmol/L (136-145) L 03/13/22 18:25 Potassium 4.8 mmol/L (3.5-5.1) 03/13/22 18:25 Chloride 90 mmol/L (98-107) L 03/13/22 18:25 Carbon Dioxide 24 mmol/L (21-32) 03/13/22 18:25 Anion Gap 7 (3-11) 03/13/22 18:25 BUN 13 mg/dl (6-23) 03/13/22 18:25 Creatinine 0.93 mg/dl (0.6-1.4) 03/13/22 18:25 Est Cr Clr Drug Dosing 74.3 ml/min 03/13/22 18:25 Est GFR ( Amer) 102.3 ml/min 03/13/22 18:25 Est GFR (Non-Af Amer) 88.3 ml/min 03/13/22 18:25 BUN/Creatinine Ratio 14.0 (10-20) 03/13/22 18:25 Glucose 89 mg/dl (70-99(Fasting)) 03/13/22 18:25 Osmolality 257 mOsm/kg (280-300) L 03/13/22 18:25 Calcium 8.3 mg/dl (8.5-10.1) L 03/13/22 18:25 Urine Osmolality 227 mOsm/kg (500-800) L 03/13/22 19:40 SARS-CoV-2, RNA, NAAT NEGATIVE (NEGATIVE) 03/13/22 23:05 Impressions Abdomen/Pelvis CT 03/13/22 18:42 CT abd pelvis IV con only CLINICAL HISTORY: fall TECHNIQUE: Helical axial images of the abdomen and pelvis were obtained and displayed. Automated dose lowering techniques and/or adjustment according to patient size were utilized for this exam. This exam was performed with intravenous contrast. COMPARISON: Comparison is made to CT abdomen pelvis 08/12/2015 FINDINGS: Lower chest: Emphysema and thickening of the interstitium is noted. Liver: Unremarkable. No focal lesions are seen. Gallbladder and biliary tree: No calcified gallstones. Normal caliber wall. No intra- or extrahepatic biliary ductal dilation. Pancreas: Unremarkable, no focal lesions. Spleen: Unremarkable. Adrenals: Unremarkable. Kidneys and ureters: There is a 19 mm cyst in the right kidney. Additional hypodensities are seen. Bladder: Unremarkable. Reproductive organs: Unremarkable. Bowel: Diverticulosis is seen without evidence of diverticulitis. The appendix is normal. Lymph nodes Retroperitoneal: Unremarkable. Pelvic: Unremarkable. Mesenteric: Unremarkable. Peritoneum: Trace fluid is in the peritoneum. Vessels: Atherosclerotic calcifications are seen. Abdominal wall: Unremarkable. Bones: Bilateral total hip arthroplasties are seen. Fractures are seen in the right transverse process of L5 as well as in the right sacral body. The sacral fracture does not appear to extend into the neural foramen. IMPRESSION: 1. Acute fractures of the right sacrum and right transverse process of L5. 2. Status post bilateral total hip arthroplasty. 3. Diverticulosis is seen without evidence of diverticulitis. 4. Additional findings as above. ACT 112: Negative or not required by law. Electronically signed by: Emre Medeiros M.D. 03/13/2022 9:[address] 03/13/22 18:42 CT cervical spine wo con CLINICAL HISTORY: fall TECHNIQUE: Multidetector row helical CT of the cervical spine was performed without administration of intravenous contrast. Coronal and sagittal reformations were obtained. Automated dose lowering techniques and/or adjustment according to patient size were utilized for this exam. Comparison: None available at the time of this dictation. FINDINGS: No acute fractures or subluxations are identified. Degenerative changes are seen in the visualized spine. Grade 1 anterolisthesis is seen at C3-C4. 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 Emphysema is seen. IMPRESSION: Degenerative changes without evidence of acute bony injury. ACT 112: Negative or not required by law. Electronically signed by: Emre eMdeiros M.D. 03/13/2022 8:49 PM Chest X-Ray 03/13/22 18:42 XR chest 1V portable CLINICAL HISTORY: fall TECHNIQUE: Single frontal radiograph of the chest was obtained. Comparison: Comparison is made to chest radiograph 10/20/2021 FINDINGS: No lines and tubes are seen. The cardiomediastinal silhouette is normal. Severe emphysematous changes are seen. Linear densities in the right midlung are unchan ged. Scarring is noted in the left upper lobe and there is a large bleb in the left apex. No evidence of pleural effusion or pneumothorax. Healed rib fractures are seen. IMPRESSION: 1. Redemonstration of emphysematous and scarring changes. ACT 112: Negative or not required by law. Electronically signed by: Emre Medeiros M.D. 03/13/2022 7:16 PM Elbow X-Ray 03/13/22 18:42 XR elbow LT min 3V routine CLINICAL HISTORY: fall TECHNIQUE: 3 views of the left elbow were obtained. Comparison: None available at the time of this dictation. FINDINGS: There is no evidence of an acute fracture. Joint spaces are well-preserved. There is no prominence of the anterior or posterior fat pads to suggest an effusion. No soft tissue abnormality is seen. IMPRESSION: No evidence of acute osseous injury. ACT 112: Negative or not required by law. Electronically signed by: Emre Medeiros M.D. 03/13/2022 7:[address] 03/13/22 18:42 CT head/brain wo con CLINICAL HISTORY: fall Technique: Contiguous axial CT images of the head were acquired from the base of the skull to the vertex without intravenous contrast administration. Images were viewed in brain, subdural and bone windows. Automated dose lowering techniques and/or adjustment according to patient size were utilized for this exam. Comparison: None available at the time of this dictation. Findings: Areas of decreased attenuation are present in the periventricular and subcortical white matter bilaterally consistent with small vessel ischemic dis ease. Generalized cerebral atrophy with commensurate enlargement of the ventricles, sulci, and cisterns is also present. There is no acute intracranial hemorrhage or evidence of acute territorial infarction. No shift of the midline structures, mass effect, or extra-axial abnormalities are shown. Atherosclerotic calcifications are present in the intracranial segments of the internal carotid arteries. Encephalomalacia is in the right frontal lobe. Imaged portions of the paranasal sinuses and mastoid air cells are clear. The orbits appear normal. There are no acute fractures of the calvaria or scalp swelling. Impression: No acute intracranial hemorrhage, no evidence of acute territorial infarction or other acute intracranial disease process. ACT 112: Negative or not required by law. Electronically signed by: Emre Medeiros M.D. 03/13/2022 8:46 PM Pelvis X-Ray 03/13/22 18:43 XR pelvis 1-2V routine, XR femur LT 2V routine CLINICAL HISTORY: fall TECHNIQUE: A single frontal view of the pelvis was obtained. Views of the left femur were obtained. Comparison: Comparison is made to pelvic radiograph 12/10/2021 FINDINGS: Bilateral total hip arthroplasties are seen. There is an acute fracture in the proximal left femur which is minimally displaced and seen on the femur radiographs only. Degenerative changes are seen in the hip joints and lumbar spine. Soft tissue swelling is seen. IMPRESSION: There is a comminuted, minimally displaced fracture of the proximal left femur at the greater trochanter. Bilateral total hip arthroplasties are seen. ACT 112: Negative or not required by law. Electronically signed by: Emre Medeiros M.D. 03/13/2022 7:12 PM Femur X-Ray 03/13/22 18:44 XR pelvis 1-2V routine, XR femur LT 2V routine CLINICAL HISTORY: fall TECHNIQUE: A single frontal view of the pelvis was obtained. Views of the left femur were obtained. Comparison: Comparison is made to pelvic radiograph 12/10/2021 FINDINGS: Bilateral total hip arthroplasties are seen. There is an acute fracture in the proximal left femur which is minimally displaced and seen on the femur radi ographs only. Degenerative changes are seen in the hip joints and lumbar spine. Soft tissue swelling is seen. IMPRESSION: There is a comminuted, minimally displaced fracture of the proximal left femur at the greater trochanter. Bilateral total hip arthroplasties are seen. ACT 112: Negative or not required by law. Electronically signed by: Emre Medeiros M.D. 03/13/2022 7:[address] 03/13/22 20:22 CT chest diagnostic w con CLINICAL HISTORY: fall TECHNIQUE: Multidetector row helical CT of the chest was performed with intravenous contrast. Coronal and sagittal reformations were obtained. Automated dose lowering techniques and/or adjustment according to patient size were utilized for this exam. CT DOSE: 538.05 mGy.cm Comparison: None available at the time of this dictation. FINDINGS: Lungs and pleura: Paraseptal emphysema and interstitial thickening is seen. Stable 10 mm nodule in the right upper lobe (image 112 of series 6). Red emonstration of left pleural gas. Heart and pericardium: Heart size is normal. No pericardial effusion. Vessels: Unremarkable. Mediastinum and guerrero: Subcentimeter lymph nodes are seen. Chest wall and lower neck: Gynecomastia is noted bilaterally. Abdomen: For findings below the diaphragm, please refer to CT of the abdomen dated the same. Bones: Degenerative changes in the thoracic spine. Old healed fractures are seen in the anterolateral aspect of the right fourth, fifth, and sixth ribs. Healing fractures are seen in the left anterior fourth and fifth ribs. Degenerative changes are seen in the left shoulder joint. IMPRESSION: 1. Healing fractures are seen in the bilateral anterolateral ribs. No evidence of acute fracture is seen. 2. Severe emphysema and scarring. 3. Redemonstration of left pleural gas which may possibly represent bronchopleural fistula. ACT 112: Negative or not required by law. Electronically signed by: Emre Medeiros M.D. 03/13/2022 8:57 PM Code Status & VTE Plan Code Status Full code VTE Prophylaxis Plan VTE Prophylaxis will be ordered: Yes PG Care Time/CCT Total # of Minutes Spent Total Time Spent with Patient: Total time spent is greater than 50% in coordination of care (as documented) at patient's floor/unit and/or counseling patient: Coding Level of Care Code 33061 Initial Inpt Care Lvl 3 Diagnoses Femur fracture, left S72.92XA Encounter type: initial encounter Femur location: unspecified portion of femur Fracture morphology: unspecified fracture morphology Fracture type: closed Closed fracture of sacrum S32.10XA Encounter type: initial encounter Zone of sacrum fracture: unspecified portion of sacrum Closed L5 vertebral fracture S32.059A Encounter type: initial encounter Fracture morphology: unspecified fracture morphology Acute hyponatremia E87.1 B12 deficiency E53.8 Chronic pain syndrome G89.4 Rheumatoid arthritis M06.9 Acid reflux K21.9 Anxiety F41.9 Benign prostate hyperplasia N40.0 Chronic obstructive pulmonary disease J44.9 Cirrhosis, alcoholic K70.30 Chronic kidney disease, stage III (moderate) N18.3 Hypothyroidism E03.9 Depression F32.9 Primary osteoarthritis, left shoulder M19.012 Rotator cuff arthropathy of left shoulder M12.812 (1) Femur fracture, left Encounter type: initial encounter Femur location: unspecified portion of femur Fracture morphology: unspecified fracture morphology Fracture type: closed Qualified Code(s): S72.92XA - Unspecified fracture of left femur, initial encounter for closed fracture (2) Closed fracture of sacrum Encounter type: initial encounter Zone of sacrum fracture: unspecified portion of sacrum Qualified Code(s): S32.10XA - Unspecified fracture of sacrum, initial encounter for closed fracture (3) Closed L5 vertebral fracture Encounter type: initial encounter Fracture morphology: unspecified fracture morphology Qualified Code(s): S32.059A - Unspecified fracture of fifth lumbar vertebra, initial encounter for closed fracture
--- NOTE | 2022-03-14 00:29 | Emergency Department Note ---
History of Present Illness General Chief complaint: Fall Stated complaint: FALL OFF A LADDER LEFT HIP PAIN Time Seen by Provider: 03/13/22 18:29 History of Present Illness Provider complaint: Fall left leg pain Onset (ago): hour(s) 1 Location: upper extremity, lower extremity and left Radiation: non-radiation Severity: moderate Pain Consistency: + constant Maximum Pain Intensity: 7 Current Pain Intensity: 7 Quality: + sharp Relieved By: + immobilization Exacerbated By: + movement Associated symptoms: no chest pain, no cough, no fever/chills, no headaches, no malaise, no nausea/vomiting or no shortness of breath 61-year-old male presents emergency department for left lower extremity and left upper extremity pain. Patient reports he was up on a ladder approximately 3 to 4 feet and lost his balance when looking up and fell backwards. He reports that he landed on his left leg and left elbow. He is currently reporting pain in his left leg and left elbow. Patient is not on any blood thinners. Patient states he does not usually use oxygen at home however he is supposed to. Home Medications Medication Instructions Recorded Confirmed Type fluticasone furoate 100 1 inh inhalation QAM #60 ea 04/29/20 03/13/22 Rx mcg-vilanterol 25 mcg/dose inhalation powder (Breo Ellipta) aspirin 81 mg tablet,delayed 81 mg PO QAM 05/19/21 03/13/22 History release cholecalciferol (vitamin D3) 125 5,000 unit PO QAM 05/19/21 03/13/22 History mcg (5,000 unit) tablet folic acid 1 mg tablet 1 mg PO QAM 05/19/21 03/13/22 History gabapentin 100 mg capsule 100 mg PO QID #360 caps 06/30/21 03/13/22 Rx pantoprazole 40 mg tablet,delayed 40 mg PO QPM #90 tabs 06/30/21 03/13/22 Rx release sennosides 8.6 mg tablet 8.6 mg PO BID #60 tabs 07/01/21 03/13/22 Rx docusate sodium 100 mg capsule 100 mg PO BID #180 caps 07/24/21 03/13/22 Rx rosuvastatin 5 mg tablet (Crestor) 5 mg PO PM #90 tabs 07/24/21 03/13/22 Rx methotrexate sodium 2.5 mg tablet 15 mg PO WK 30 days #180 tabs 09/22/21 03/13/22 Rx tamsulosin 0.4 mg capsule 0.4 mg PO PM #90 caps 09/22/21 03/13/22 Rx buspirone 15 mg tablet See Rx Instructions .Route 11/03/21 03/13/22 Rx .COMPLEX #90 tabs venlafaxine 75 mg capsule,extended 75 mg PO TID #90 caps 12/02/21 03/13/22 Rx release 24 hr gabapentin 600 mg tablet 600 mg PO QID #120 tabs 02/03/22 03/13/22 Rx oxycodone 10 mg tablet 10 mg PO TID PRN pain #90 tabs 02/17/22 03/13/22 Rx ipratropium 0.5 mg-albuterol 3 mg 3 ml inhalation Q6H PRN Shortness 02/25/22 03/13/22 Rx (2.5 mg base)/3 mL nebulization Of Breath Or Wheezing J44.9;j44.1 soln #3 mL carbamazepine 100 mg chewable 200 mg PO BID 03/13/22 03/13/22 History tablet levothyroxine 25 mcg tablet 25 mcg PO DAILYBB 03/13/22 03/13/22 History Allergies Allergy/AdvReac Type Severity Reaction Status Date / Time pregabalin Allergy Severe ANAPHYLAXIS Verified 03/13/22 22:42 Past Med/Surg History Medical History Acid reflux Stable and controlled per patient Anemia Anxiety Benign prostate hyperplasia Charcot's joint of foot, non-diabetic Chronic kidney disease, stage III (moderate) Chronic obstructive pulmonary disease Chronic pain syndrome Multifactorial in nature- LDD, neuropathy, OA, RA Cirrhosis, alcoholic HX OF (LAST ETOH 10 YEARS AGO) Follows with GI routinely Depression Flexion deformity of hand Unable to fully extend 4th and 5th digits of left hand History of stroke 2011 - NO PHYSICAL RESIDUAL EFFECTS, MEMORY PROBLEM FOLLOWING - HAS RECOVERED SOME BUT NOT ENTIRELY Hypothyroidism Hypoxemic respiratory failure, chronic resolved per pt Lumbar disc herniation with radiculopathy Neuropathy, alcoholic Fair control On gabapentin On home oxygen therapy 2L n/c at HS and prn Peripheral arterial disease Stable per 03/2021 PCP note- no significant blockage with LE angiogram in 12/2020 Portal hypertension Rheumatoid arthritis Follows with rheum - [facility] T2DM (type 2 diabetes mellitus) NIDDM > diet controlled Glucose stable Surgical History H/O hand surgery (02/07/21) R index, middle, ring and small finger MCP joint silicone implant arthroplasties w/ extensor tendon centralization H/O oral surgery ALL TEETH OUT History of bronchoscopy (~09/2021) History of esophagogastroduodenoscopy (EGD) Hx of surgical procedure (12/2020) Angio Extremity > bilat legs Hx of umbilical hernia repair 11/14/12 S/P epidural steroid injection Status post left hip replacement (01/2018) Status post right hip replacement (10/2018) Status post-operative repair of closed fracture of left hip (2012) IM nail placement L hip Family History Father Family history of cardiac pacemaker Coronary heart disease Aneurysm Cardiac pacemaker Hx of CABG Mother Family history of cardiac pacemaker Diabetes Cardiac pacemaker Hypertension Brother Diabetes Other Family history non-contributory No family history of adverse response to anesthesia Denies family history of Colon cancer Ovarian cancer Prostate cancer Myocardial infarction Breast cancer Social History Smoking Status: Light tobacco smoker Tobacco Type: Cigarettes Age Started Using Tobacco: 13; packs per day: 0.25; Cigarettes Per Day: 10 a day; Second Hand Exposure: No; Hx Alcohol Use: No Hx Substance Use: Yes Prescribed Medications: Opiates Substance Use Type Other:: couple times a week Preferred Language: [place] Islander Communication Ability: Effective Visual Impairment: No Limitations Hearing Ability: Normal Rehabilitation Tech Required: No Beliefs That Will Affect Care: None marital status: marital status details: 1 son, 3 daughters Current Living Situation: Spouse Current Living Situation Comment: spouse, 1 daughter, grandson every other w [employer] current occupational status: unemployed and disabled How many Children do You have: 5 Feels Safe at Home: Yes Childhood Exposure to Second-Hand Smoke: Yes Diet Comment: regular caffeine: Yes during the past year weight has: remained stable Dental Care, Regularly: No Physical Activity Frequency: Does not Exercise Seatbelt Use: never Sunscreen Use: No Assistive Devices: Cane, Denture - Upper, Denture - Lower, Glasses, Nebulizer, Raised Toilet Seat, Scooter/Electric Scooter, Walker and Wheelchair Review of Systems A total of 10 systems reviewed and were otherwise negative Physical Exam Vital Signs Vital Signs - 24 hr 03/13/22 18:09 03/13/22 18:16 03/13/22 18:53 Temperature 36.1 C L Temperature Source Axillary Pulse Rate 82 78 Pulse Rate [Apical] 79 Pulse Rhythm Regular Pulse Rhythm [Apical] Regular Pulse Strength Normal Pulse Strength [Apical] Normal Respiratory Rate 22 22 22 Respiratory Effort / Characteristics Non-Labored Non-Labored Respiratory Depth Normal Normal Respiratory Pattern Regular Regular Blood Pressure 133/76 Blood Pressure [Right Arm] 133/76 Blood Pressure Mean 95 Blood Pressure Mean [Right Arm] 95 Blood Pressure Position Lying Blood Pressure Position [Right Arm] Lying Pulse Oximetry 96 96 92 Oxygen Delivery Method Nasal Cannula Nasal Cannula Room Air Oxygen Flow Rate 2 Sepsis Recent Fever Within 48 Hours No Sepsis New/Unexplained Change in Mental Status N/A Sepsis Action Taken by Nursing No Action Required End Tidal CO2 (18-54mmHg) 2 03/13/22 20:42 03/13/22 23:28 Temperature Temperature Source Pulse Rate Pulse Rate [Apical] 76 77 Pulse Rhythm Pulse Rhythm [Apical] Pulse Strength Pulse Strength [Apical] Respiratory Rate 13 16 Respiratory Effort / Characteristics Non-Labored Spontaneous Non-Labored Spontaneous Respiratory Depth Normal Normal Respiratory Pattern Regular Regular Blood Pressure Blood Pressure [Right Arm] 126/74 168/92 H Blood Pressure Mean Blood Pressure Mean [Right Arm] 91 117 Blood Pressure Position Blood Pressure Position [Right Arm] Pulse Oximetry 99 93 Oxygen Delivery Method Nasal Cannula Nasal Cannula Oxygen Flow Rate 2 2 Sepsis Recent Fever Within 48 Hours Sepsis New/Unexplained Change in Mental Status Sepsis Action Taken by Nursing End Tidal CO2 (18-54mmHg) Physical Exam HENT: Exam performed. - Head: Normocephalic and atraumatic. - Right Ear: External ear normal. No mastoid tenderness. - Left Ear: External ear normal. No mastoid tenderness. - Mouth/Throat: The oropharynx is clear and moist. No trismus in the jaw. No dental abscesses or uvula swelling. No oropharyngeal exudate or tonsillar abscesses. EYES: Conjunctivae and EOM are normal. Pupils are equal, round, and reactive to light. Right eye exhibits no discharge. Left eye exhibits no discharge. No scleral icterus. NECK: Normal range of motion. Neck supple. No JVD present. No spinous process tenderness present. CV: Normal rate, regular rhythm, normal heart sounds and intact distal pulses. There is no peripheral edema. Palpable radial pulses bue. PULM/CHEST: Diminished breath sounds bilaterally prolonged expiratory phase bilaterally. ABD: The abdomen is soft. MUSC/SKEL: Left upper extremity: Pain on palpation of the left elbow. Compartments of the upper extremity are soft. Palpable radial and ulnar pulse. Right upper extremity: Within normal limits. Pelvis: Stable. Pain on palpation of the left pelvis. Left lower extremity: Palpable DP and PT pulse. Right lower extremity: Within normal limits. Palpable DP and PT pulse. LYMPH: No cervical adenopathy. NEURO: GCS eye subscore is 4. GCS verbal subscore is 5. GCS motor subscore is 6. Course Course 1828: The patient was evaluated in room B12. A complete history and physical exam was performed Cardiac monitoring: An order was placed for continuous cardiac monitoring. The monitor shows a rate of 70 with sinus rhythm 2130: Vital signs stable. Labs show hemoglobin of 8. Sodium 121. Imaging was conducted and the traumatic findings on the imaging showed comminuted minimally displaced fracture of the proximal left femur. The bilateral hip arthroplasties are seen. CT of the head C-spine and chest are within normal limits. CT of the abdomen pelvis showed a right sacral and right transverse process L5 fracture. Patient states his hip replacements were done by [facility] orthopedics. Patient will be admitted to the [facility] hospitalist team with [facility] orthopedics on consult. Dr. Hernández team will be notified. Administered Medications Morphine Sulfate (Morphine Sulfate 4 Mg/Ml 1 Ml Carp\Vial) 4 mg IV Q1H PRN PRN Reason: Severe Pain (Rating 7,8,9,10) Stop: 03/27/22 21:27 Last Admin: 03/13/22 23:26 Dose: 4 mg Documented By: MED Discontinued Medications Sodium Chloride (Nss) 500 mls @ 125 mls/hr IV .Q4H [facility] Stop: 04/12/22 18:44 Last Admin: 03/13/22 19:19 Dose: 125 mls/hr Documented By: TEVIN Ioversol (Ioversol 350 Mg 100ml Prefilled Syringe) 94 ml IV ONCE ONE Stop: 03/13/22 20:27 Last Admin: 03/13/22 20:26 Dose: 94 ml Documented By: JIMMY Morphine Sulfate (Morphine Sulfate 4 Mg/Ml 1 Ml Carp\Vial) 4 mg IV NOW STA Stop: 03/13/22 19:41 Last Admin: 03/13/22 19:45 Dose: 4 mg Documented By: TEVIN Ondansetron HCl (Ondansetron Inj 2 Mg/Ml 2 Ml Vial) 4 mg IV NOW STA Stop: 03/13/22 19:41 Last Admin: 03/13/22 19:46 Dose: 4 mg Documented By: TEVIN Medical Decision Making Laboratory Data Result diagrams: 03/13/22 18:25 03/13/22 18:25 Lab Results 03/13/22 03/13/22 03/13/22 Range/Units 18:25 18:25 18:25 WBC 7.39 (4.8-10.8) K/ul RBC 2.21 L (4.63-6.08) M/uL Hgb 8.0 L (14.0-18.0) g/dl Hct 22.8 L (40.1-51.0) % MCV 103.2 H (80.0-100.0) fL MCH 36.2 H (25.0-34.0) pg MCHC 35.1 (32.0-36.0) g/dL RDW Std Deviation 67.6 H (36.4-46.3) fL RDW Coeff of Alix 17.9 H (11.5-14.5) % Plt Count 252 (130-400) K/uL MPV 8.7 L (9.4-12.4) fL Immature Gran % (Auto) 1.1 % Neut % (Auto) 85.5 % Lymph % (Auto) 5.3 % Hardin % (Auto) 6.9 % Eos % (Auto) 0.9 % Baso % (Auto) 0.3 % Neut # (Auto) 6.32 (1.4-6.5) K/uL Lymph # (Auto) 0.39 L (1.2-3.4) K/uL Hardin # (Auto) 0.51 (0.24-0.82) K/uL Eos # (Auto) 0.07 (0-0.50) K/uL Baso # (Auto) 0.02 (0-0.2) K/uL Immature Gran # (Auto) 0.08 H (0.00-0.02) K/uL PT 11.2 (9.0-12.0) Seconds INR 1.1 (0.9-1.1) APTT 32.1 H (21.0-31.0) Seconds PTT Ratio 1.2 Sodium 121 L (136-145) mmol/L Potassium 4.8 (3.5-5.1) mmol/L Chloride 90 L (98-107) mmol/L Carbon Dioxide 24 (21-32) mmol/L Anion Gap 7 (3-11) BUN 13 (6-23) mg/dl Creatinine 0.93 (0.6-1.4) mg/dl Est Cr Clr Drug Dosing 74.3 ml/min Est GFR ( Amer) 102.3 ml/min Est GFR (Non-Af Amer) 88.3 ml/min BUN/Creatinine Ratio 14.0 (10-20) Glucose 89 (70-99(Fasting)) mg/dl Osmolality (280-300) mOsm/kg Calcium 8.3 L (8.5-10.1) mg/dl Urine Osmolality (500-800) mOsm/kg SARS-CoV-2, RNA, NAAT (NEGATIVE) 03/13/22 03/13/22 03/13/22 Range/Units 18:25 19:40 23:05 WBC (4.8-10.8) K/ul RBC (4.63-6.08) M/uL Hgb (14.0-18.0) g/dl Hct (40.1-51.0) % MCV (80.0-100.0) fL MCH (25.0-34.0) pg MCHC (32.0-36.0) g/dL RDW Std Deviation (36.4-46.3) fL RDW Coeff of Alix (11.5-14.5) % Plt Count (130-400) K/uL MPV (9.4-12.4) fL Immature Gran % (Auto) % Neut % (Auto) % Lymph % (Auto) % Hardin % (Auto) % Eos % (Auto) % Baso % (Auto) % Neut # (Auto) (1.4-6.5) K/uL Lymph # (Auto) (1.2-3.4) K/uL Hardin # (Auto) (0.24-0.82) K/uL Eos # (Auto) (0-0.50) K/uL Baso # (Auto) (0-0.2) K/uL Immature Gran # (Auto) (0.00-0.02) K/uL PT (9.0-12.0) Seconds INR (0.9-1.1) APTT (21.0-31.0) Seconds PTT Ratio Sodium (136-145) mmol/L Potassium (3.5-5.1) mmol/L Chloride (98-107) mmol/L Carbon Dioxide (21-32) mmol/L Anion Gap (3-11) BUN (6-23) mg/dl Creatinine (0.6-1.4) mg/dl Est Cr Clr Drug Dosing ml/min Est GFR ( Amer) ml/min Est GFR (Non-Af Amer) ml/min BUN/Creatinine Ratio (10-20) Glucose (70-99(Fasting)) mg/dl Osmolality 257 L (280-300) mOsm/kg Calcium (8.5-10.1) mg/dl Urine Osmolality 227 L (500-800) mOsm/kg SARS-CoV-2, RNA, NAAT NEGATIVE (NEGATIVE) Imaging Data Radiologist's Impression: Abdomen/Pelvis CT 03/13/22 18:42 CT abd pelvis IV con only CLINICAL HISTORY: fall TECHNIQUE: Helical axial images of the abdomen and pelvis were obtained and displayed. Automated dose lowering techniques and/or adjustment according to patient size were utilized for this exam. This exam was performed with intravenous contrast. COMPARISON: Comparison is made to CT abdomen pelvis 08/12/2015 FINDINGS: Lower chest: Emphysema and thickening of the interstitium is noted. Liver: Unremarkable. No focal lesions are seen. Gallbladder and biliary tree: No calcified gallstones. Normal caliber wall. No intra- or extrahepatic biliary ductal dilation. Pancreas: Unremarkable, no focal lesions. Spleen: Unremarkable. Adrenals: Unremarkable. Kidneys and ureters: There is a 19 mm cyst in the right kidney. Additional hypodensities are seen. Bladder: Unremarkable. Reproductive organs: Unremarkable. Bowel: Diverticulosis is seen without evidence of diverticulitis. The appendix i s normal. Lymph nodes Retroperitoneal: Unremarkable. Pelvic: Unremarkable. Mesenteric: Unremarkable. Peritoneum: Trace fluid is in the peritoneum. Vessels: Atherosclerotic calcifications are seen. Abdominal wall: Unremarkable. Bones: Bilateral total hip arthroplasties are seen. Fractures are seen in the right transverse process of L5 as well as in the right sacral body. The sacral fracture does not appear to extend into the neural foramen. IMPRESSION: 1. Acute fractures of the right sacrum and right transverse process of L5. 2. Status post bilateral total hip arthroplasty. 3. Diverticulosis is seen without evidence of diverticulitis. 4. Additional findings as above. ACT 112: Negative or not required by law. Electronically signed by: Emre Medeiros M.D. 03/13/2022 9:[address] 03/13/22 18:42 CT cervical spine wo con CLINICAL HISTORY: fall TECHNIQUE: Multidetector row helical CT of the cervical spine was performed without administration of intravenous contrast. Coronal and sagittal reformations were obtained. Automated dose lowering techniques and/or adjustment according to patient size were utilized for this exam. Comparison: None available at the time of this dictation. FINDINGS: No acute fractures or subluxations are identified. Degenerative changes are seen in the visualized spine. Grade 1 anterolisthesis is seen at C3-C4. 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 Emphysema is seen. IMPRESSION: Degenerative changes without evidence of acute bony injury. ACT 112: Negative or not required by law. Electronically signed by: Emre Medeiros M.D. 03/13/2022 8:49 PM Chest X-Ray 03/13/22 18:42 XR chest 1V portable CLINICAL HISTORY: fall TECHNIQUE: Single frontal radiograph of the chest was obtained. Comparison: Comparison is made to chest radiograph 10/20/2021 FINDINGS: No lines and tubes are seen. The cardiomediastinal silhouette is normal. Severe emphysematous changes are seen. Linear densities in the right midlung are unchanged. Scarring is noted in the left upper lobe and there is a large bleb in the left apex. No evidence of pleural effusion or pneumothorax. Healed rib fractures are seen. IMPRESSION: 1. Redemonstration of emphysematous and scarring changes. ACT 112: Negative or not required by law. Electronically signed by: Emre Medeiros M.D. 03/13/2022 7:16 PM Elbow X-Ray 03/13/22 18:42 XR elbow LT min 3V routine CLINICAL HISTORY: fall TECHNIQUE: 3 views of the left elbow were obtained. Comparison: None available at the time of this dictation. FINDINGS: There is no evidence of an acute fracture. Joint spaces are well-preserved. There is no prominence of the anterior or posterior fat pads to suggest an effusion. No soft tissue abnormality is seen. IMPRESSION: No evidence of acute osseous injury. ACT 112: Negative or not required by law. Electronically signed by: Emre Medeiros M.D. 03/13/2022 7:[address] 03/13/22 18:42 CT head/brain wo con CLINICAL HISTORY: fall Technique: Contiguous axial CT images of the head were acquired from the base of the skull to the vertex without intravenous contrast administration. Images were viewed in brain, subdural and bone windows. Automated dose lowering techniques and/or adjustment according to patient size were utilized for this exam. Comparison: None available at the time of this dictation. Findings: Areas of decreased attenuation are present in the periventricular and subcortical white matter bilaterally consistent with small vessel ischemic disease. Generalized cerebral atrophy with commensurate enlargement of the ventricles, sulci, and cisterns is also present. There is no acute intracranial hemorrhage or evidence of acute territorial infarction. No shift of the midline structures, mass effect, or extra-axial abnormalities are shown. Atherosclerotic calcifications are present in the intracranial segments of the internal carotid arteries. Encephalomalacia is in the right frontal lobe. Imaged portions of the paranasal sinuses and mastoid air cells are clear. The orbits appear normal. There are no acute fractures of the calvaria or scalp swelling. Impression: No acute intracranial hemorrhage, no evidence of acute territorial infarction or other acute intracranial disease process. ACT 112: Negative or not required by law. Electronically signed by: Emre Medeiros M.D. 03/13/2022 8:46 PM Pelvis X-Ray 03/13/22 18:43 XR pelvis 1-2V routine, XR femur LT 2V routine CLINICAL HISTORY: fall TECHNIQUE: A single frontal view of the pelvis was obtained. Views of the left femur were obtained. Comparison: Comparison is made to pelvic radiograph 12/10/2021 FINDINGS: Bilateral total hip arthroplasties are seen. There is an acute fracture in the proximal left femur which is minimally displaced and seen on the femur radiographs only. Degenerative changes are seen in the hip joints and lumbar spine. Soft tissue swelling is seen. IMPRESSION: There is a comminuted, minimally displaced fracture of the proximal left femur at the greater trochanter. Bilateral total hip arthroplasties are seen. ACT 112: Negative or not required by law. Electronically signed by: Emre Medeiros M.D. 03/13/2022 7:12 PM Femur X-Ray 03/13/22 18:44 XR pelvis 1-2V routine, XR femur LT 2V routine CLINICAL HISTORY: fall TECHNIQUE: A single frontal view of the pelvis was obtained. Views of the left femur were obtained. Comparison: Comparison is made to pelvic radiograph 12/10/2021 FINDINGS: Bilateral total hip arthroplasties are seen. There is an acute fracture in the proximal left femur which is minimally displaced and seen on the femur ra diographs only. Degenerative changes are seen in the hip joints and lumbar spine. Soft tissue swelling is seen. IMPRESSION: There is a comminuted, minimally displaced fracture of the proximal left femur at the greater trochanter. Bilateral total hip arthroplasties are seen. ACT 112: Negative or not required by law. Electronically signed by: Emre Medeiros M.D. 03/13/2022 7:[address] 03/13/22 20:22 CT chest diagnostic w con CLINICAL HISTORY: fall TECHNIQUE: Multidetector row helical CT of the chest was performed with intravenous contrast. Coronal and sagittal reformations were obtained. Automated dose lowering techniques and/or adjustment according to patient size were utilized for this exam. CT DOSE: 538.05 mGy.cm Comparison: None available at the time of this dictation. FINDINGS: Lungs and pleura: Paraseptal emphysema and interstitial thickening is seen. Stable 10 mm nodule in the right upper lobe (image 112 of series 6). Redemonstration of left pleural gas. Heart and pericardium: Heart size is normal. No pericardial effusion. Vessels: Unremarkable. Mediastinum and guerrero: Subcentimeter lymph nodes are seen. Chest wall and lower neck: Gynecomastia is noted bilaterally. Abdomen: For findings below the diaphragm, please refer to CT of the abdomen dated the same. Bones: Degenerative changes in the thoracic spine. Old healed fractures are seen in the anterolateral aspect of the right fourth, fifth, and sixth ribs. Healing fractures are seen in the left anterior fourth and fifth ribs. Degenerative changes are seen in the left shoulder joint. IMPRESSION: 1. Healing fractures are seen in the bilateral anterolateral ribs. No evidence of acute fracture is seen. 2. Severe emphysema and scarring. 3. Redemonstration of left pleural gas which may possibly represent bronchopleural fistula. ACT 112: Negative or not required by law. Electronically signed by: Emre Medeiros M.D. 03/13/2022 8:57 PM ECG Data Indication: + other (fall) Rate (beats per minute): 92 Rhythm: + normal sinus ECG Intervals/blocks: + Normal QRS, + Normal IL and + Normal QT-c ECG ST segments: + Normal ST segments MDM Narrative Vital signs stable. Labs show hemoglobin of 8. Sodium 121. Imaging was conducted and the traumatic findings on the imaging showed comminuted minimally displaced fracture of the proximal left femur. The bilateral hip arthroplasties are seen. CT of the head C-spine and chest are within normal limits. CT of the abdomen pelvis showed a right sacral and right transverse process L5 fracture. Patient states his hip replacements were done by [facility] orthopedics. Patient will be admitted to the [facility] hospitalist team with [facility] orthopedics on consult. Dr. Hernández team will be notified. Impression & Plan Femur fracture, left, Closed fracture of sacrum, Closed L5 vertebral fracture, Acute hyponatremia Discharge Plan Visit Data Chief Complaint: Fall Stated Complaint: FALL OFF A LADDER LEFT HIP PAIN ED Provider: Bernard Castrejon Discharge Problem: Femur fracture, left, Closed fracture of sacrum, Closed L5 vertebral fracture, Acute hyponatremia Patient Disposition: Admitted As Inpatient Forms Stand Alone Forms: [facility] Prescriptions Prescriptions: No Action gabapentin 100 mg capsule 100 mg PO QID Qty: 360 1RF Rx Instructions: TOTAL DOSE 700 MG--TAKES WITH 600 MG TAB. pantoprazole 40 mg tablet,delayed release (DR/EC) 40 mg PO QPM Qty: 90 1RF sennosides 8.6 mg tablet 8.6 mg PO BID Qty: 60 5RF methotrexate sodium 2.5 mg tablet 15 mg PO WK 30 Days Qty: 180 1RF Rx Instructions: TAKES ON WEDNESDAYS. tamsulosin 0.4 mg capsule 0.4 mg PO PM Qty: 90 1RF venlafaxine 75 mg capsule,extended release 24hr 75 mg PO TID Qty: 90 1RF gabapentin 600 mg tablet 600 mg PO QID Qty: 120 5RF Rx Instructions: TOTAL DOSE 700 MG--TAKES WITH 100 MG TAB. oxycodone 10 mg tablet 10 mg PO TID PRN (Reason: pain) Qty: 90 0RF ipratropium-albuterol 0.5 mg-3 mg(2.5 mg base)/3 mL solution for nebulization 3 ml inhalation Q6H PRN (Reason: Shortness Of Breath Or Wheezing J44.9;j44.1) Qty: 3 5RF Breo Ellipta 100-25 mcg/dose blister with device 1 inh INHALATION QAM Qty: 60 5RF buspirone 15 mg tablet See Rx Instructions .ROUTE .COMPLEX Qty: 90 5RF Rx Instructions: Take 1 tab PO in morning and in the afternoon, 1.5 tabs PO evening; rosuvastatin [Crestor] 5 mg tablet 5 mg PO PM Qty: 90 3RF docusate sodium 100 mg capsule 100 mg PO BID Qty: 180 3RF levothyroxine 25 mcg tablet 25 mcg PO DAILYBB carbamazepine 100 mg tablet,chewable 200 mg PO BID Rx Instructions: 2 tabs po BID; aspirin 81 mg tablet,delayed release (DR/EC) 81 mg PO QAM folic acid 1 mg tablet 1 mg PO QAM cholecalciferol (vitamin D3) 125 mcg (5,000 unit) tablet 5,000 unit PO QAM Referrals Referrals: Michelle Campos DO [Primary Care Provider] -
[2022-03-14] MEDS ORDERED: ACETAMINOPHEN 325 MG TAB PO PRN (01:20)
[2022-03-14] MEDS ORDERED: MoRPHine SULFATE 2 MG/ML CARP IV PRN (01:20)
[2022-03-14] MEDS ORDERED: NALOXONE HCL 0.4 MG/1 ML VIAL/CARP IV PRN (01:20)
[2022-03-14] MEDS ORDERED: MAGNESIUM HYDROXIDE SUSP 30 ML UDC PO PRN (01:20)
[2022-03-14] MEDS ORDERED: bisacodyL 10 MG SUPP PR PRN (01:20)
[2022-03-14] MEDS ORDERED: FUROSEMIDE INJ 20 MG/2 ML VIAL IV ONE (01:45)
[2022-03-14] MEDS ORDERED: Flu Vaccine (Fluarix) 0.5mL SYR (Standard Dose) IM ONE (02:15)
[2022-03-14] MEDS: carBAMazepine 100 MG CHEW TAB PO SCH ×3 (02:23→22:04)
[2022-03-14] MEDS: busPIRone 15 MG TAB PO SCH ×3 (02:24→22:07)
--- NOTE | 2022-03-14 03:18 | Communication Note ---
Date of Service: March 14, 2022 Notified by nursing that patient states he had 2 beers prior to admission (in past medical hx section stated last etoh 10 years ago). Will add alcohol level to AM labs. Consider adding AWSS protocol.
[2022-03-14 05:39] LABS: Basophils # (auto) 0.02 K/uL (0-0.2); Basophils % (auto) 0.5 %; Eosinophils # (auto) 0.08 K/uL (0-0.50); Eosinophils % (auto) 2.1 %; Hematocrit (blood only) 22.1 % (40.1-51.0); Hemoglobin 7.8 g/dl (14.0-18.0); Immature Granulocytes # (auto) 0.03 K/uL (0.00-0.02); Immature Granulocytes % (auto) 0.8 %; Lymphocytes # (auto) 0.35 K/uL (1.2-3.4); Mean Corpuscular Hemoglobin 35.8 pg (25.0-34.0); Mean Corpuscular Hgb Conc 35.3 g/dL (32.0-36.0); Mean Corpuscular Volume 101.4 fL (80.0-100.0); Mean Platelet Volume 8.4 fL (9.4-12.4); Monocytes # (auto) 0.36 K/uL (0.24-0.82); Monocytes % (auto) 9.3 %; Neutrophils # (auto) 3.04 K/uL (1.4-6.5); Neutrophils % (auto) 78.3 %; Platelet Count 210 K/uL (130-400); RDW Coefficient of Variation 17.7 % (11.5-14.5); RDW Standard Deviation 65.7 fL (36.4-46.3); Red Blood Count 2.18 M/uL (4.63-6.08); White Blood Count 3.88 K/ul (4.8-10.8)
[2022-03-14 06:00] LABS: Albumin Level 3.2 gm/dl (3.4-5.0); BUN Creatinine Ratio 12.9 (10-20); Calcium 8.6 mg/dl (8.5-10.1); Creatinine Clr Calc Pharmacy 74.3 ml/min; Est GFR (African American) 102.3 ml/min; Est GFR (Non-African American) 88.3 ml/min; Magnesium 1.9 mg/dl (1.7-2.4); Potassium 4.1 mmol/L (3.5-5.1)
[2022-03-14] MEDS ORDERED: TRANEXAMIC ACID / 0.7% NACL 1,000 MG/100 ML BAG IV SCH ×2 (06:00→06:30)
[2022-03-14] MEDS: LEVOTHYROXINE SODIUM 25 MCG TABLET PO SCH (06:12)
[2022-03-14 06:16] LABS: Stomatocytes 1+
[2022-03-14] MEDS: MoRPHine SULFATE 4 MG/ML 1 ML CARP\\VIAL IV PRN ×3 (07:57→20:31)
[2022-03-14] MEDS: VENLAFAXINE HCL XR 75 MG CAPXR PO SCH ×3 (08:25→22:07)
[2022-03-14] MEDS: GABAPENTIN 600 MG TAB PO SCH ×4 (08:26→22:05)
[2022-03-14] MEDS: SODIUM CHLORIDE 1 GM TABLET PO SCH ×2 (08:26→22:06)
[2022-03-14] MEDS: FOLIC ACID 1 MG TAB PO SCH (08:26)
[2022-03-14] MEDS: CHOLECALCIFEROL 5,000 UNITS 125 MCG TAB PO SCH (08:26)
[2022-03-14] MEDS: UMECLIDINIUM BROMIDE 62.5MCG/BLISTER 7 PUFFS/INHALER INH SCH (08:27)
[2022-03-14] MEDS: FLUTICASONE/VILANTEROL 100/25MCG 14 PUFFS/INHALER INH SCH (08:27)
--- NOTE | 2022-03-14 09:02 | Orthopedic Consultation ---
Date of Consultation March 14, 2022 Assessment & Plan (1) Greater trochanter fracture: I reviewed the patient's x-ray and CT scan findings. His greater trochanter fracture, sacrum fracture, and L5 transverse process fracture can all be treated nonoperatively. No bracing or immobilization is indicated. He can weight-bear as tolerated bilateral upper and lower extremities, however he is going to need assistance as well as a walker. He is going to have some difficulty because of the abrasion on his left elbow as well as the fact that he is malnourished and weak. He is therefore a high risk for fall. He is likely going to need a rehab facility upon discharge from the hospital. Recommend nutritional supplement as per the internal medicine service. DVT prophylaxis per internal medicine service. Follow-up with me 2 weeks after discharge. Any questions feel free to contact orthopedics. (2) Closed fracture of sacrum: (3) Closed L5 vertebral fracture: (4) S/P total hip arthroplasty: (5) Rotator cuff arthropathy of left shoulder: (6) Cirrhosis, alcoholic: (7) Chronic obstructive pulmonary disease: (8) Chronic kidney disease, stage III (moderate): (9) Abrasion of left elbow: History of Present Illness Reason for Consultation: Left greater trochanter fracture, sacrum and L5 transverse process fracture Attending Physician: Kelechi Gracia MD History of Present Illness The patient is a 61-year-old male with a past medical history including B12 deficiency, anemia, osteonecrosis of left ankle and foot, insomnia, lumbar degenerative disc disease, hand dermatitis, vitamin D deficiency, left shoulder osteoarthritis and rotator cuff arthropathy, idiopathic polyneuropathy, lumbar radiculopathy, PAD, RA, GERD, anxiety, BPH, Charcot joint, CKD stage III, COPD, alcoholic cirrhosis, depression, hypothyroidism, diabetes mellitus type 2, alcoholic neuropathy and chronic respiratory failure with hypoxia. Patient reports falling off a ladder as noted above. Radiology studies in ED revealed the following: CT head negative, CT cervical spine negative, left elbow showed no fractures, chest x-ray showed emphysema and scarring, and CT scan of abdomen and pelvis showed a proximal comminuted left femur greater trochanter fracture, fracture of the right sacrum and right L5 transverse process fracture, CT scan of chest showed right 4 through 6 and left 4 through 5 healing rib fractures Allergies Allergy/AdvReac Type Severity Reaction Status Date / Time pregabalin Allergy Severe ANAPHYLAXIS Verified 10/14/22 22:42 Home Medications Medication Instructions Recorded Confirmed Type fluticasone furoate 100 1 inh inhalation QAM #60 ea 04/29/20 03/13/22 Rx mcg-vilanterol 25 mcg/dose inhalation powder (Breo Ellipta) aspirin 81 mg tablet,delayed 81 mg PO QAM 05/19/21 03/13/22 History release cholecalciferol (vitamin D3) 125 5,000 unit PO QAM 05/19/21 03/13/22 History mcg (5,000 unit) tablet folic acid 1 mg tablet 1 mg PO QAM 05/19/21 03/13/22 History gabapentin 100 mg capsule 100 mg PO QID #360 caps 06/30/21 03/13/22 Rx pantoprazole 40 mg tablet,delayed 40 mg PO QPM #90 tabs 06/30/21 03/13/22 Rx release sennosides 8.6 mg tablet 8.6 mg PO BID #60 tabs 07/01/21 03/13/22 Rx docusate sodium 100 mg capsule 100 mg PO BID #180 caps 07/24/21 03/13/22 Rx rosuvastatin 5 mg tablet (Crestor) 5 mg PO PM #90 tabs 07/24/21 03/13/22 Rx methotrexate sodium 2.5 mg tablet 15 mg PO WK 30 days #180 tabs 09/22/21 03/13/22 Rx tamsulosin 0.4 mg capsule 0.4 mg PO PM #90 caps 09/22/21 03/13/22 Rx buspirone 15 mg tablet See Rx Instructions .Route 11/03/21 03/13/22 Rx .COMPLEX #90 tabs venlafaxine 75 mg capsule,extended 75 mg PO TID #90 caps 12/02/21 03/13/22 Rx release 24 hr gabapentin 600 mg tablet 600 mg PO QID #120 tabs 02/03/22 03/13/22 Rx oxycodone 10 mg tablet 10 mg PO TID PRN pain #90 tabs 02/17/22 03/13/22 Rx ipratropium 0.5 mg-albuterol 3 mg 3 ml inhalation Q6H PRN Shortness 02/25/22 03/13/22 Rx (2.5 mg base)/3 mL nebulization Of Breath Or Wheezing J44.9;j44.1 soln #3 mL carbamazepine 100 mg chewable 200 mg PO BID 03/13/22 03/13/22 History tablet levothyroxine 25 mcg tablet 25 mcg PO DAILYBB 03/13/22 03/13/22 History Patient History Medical History Acid reflux Stable and controlled per patient Anemia Anxiety Benign prostate hyperplasia Charcot's joint of foot, non-diabetic Chronic kidney disease, stage III (moderate) Chronic obstructive pulmonary disease Chronic pain syndrome Multifactorial in nature- LDD, neuropathy, OA, RA Cirrhosis, alcoholic HX OF (LAST ETOH 10 YEARS AGO) Follows with GI routinely Depression Flexion deformity of hand Unable to fully extend 4th and 5th digits of left hand History of stroke 2011 - NO PHYSICAL RESIDUAL EFFECTS, MEMORY PROBLEM FOLLOWING - HAS RECOVERED SOME BUT NOT ENTIRELY Hypothyroidism Hypoxemic respiratory failure, chronic resolved per pt Lumbar disc herniation with radiculopathy Neuropathy, alcoholic Fair control On gabapentin On home oxygen therapy 2L n/c at HS and prn Peripheral arterial disease Stable per 03/2021 PCP note- no significant blockage with LE angiogram in 12/2020 Portal hypertension Rheumatoid arthritis Follows with rheum - [facility] T2DM (type 2 diabetes mellitus) NIDDM > diet controlled Glucose stable Surgical History H/O hand surgery (02/07/21) R index, middle, ring and small finger MCP joint silicone implant arthroplasties w/ extensor tendon centralization H/O oral surgery ALL TEETH OUT History of bronchoscopy (~09/2021) History of esophagogastroduodenoscopy (EGD) Hx of surgical procedure (12/2020) Angio Extremity > bilat legs Hx of umbilical hernia repair 11/14/12 S/P epidural steroid injection Status post left hip replacement (01/2018) Status post right hip replacement (10/2018) Status post-operative repair of closed fracture of left hip (2012) IM nail placement L hip Family History Father Family history of cardiac pacemaker Coronary heart disease Aneurysm Cardiac pacemaker Hx of CABG Mother Family history of cardiac pacemaker Diabetes Cardiac pacemaker Hypertension Brother Diabetes Other Family history non-contributory No family history of adverse response to anesthesia Denies family history of Colon cancer Ovarian cancer Prostate cancer Myocardial infarction Breast cancer Social History Smoking Status: Current every day smoker Tobacco Type: Cigarettes Age Started Using Tobacco: 13; packs per day: 0.25; Cigarettes Per Day: 0.5 pack a day; Second Hand Exposure: No; Hx Alcohol Use: Yes Alcohol type: beer Hx Substance Use: Yes Prescribed Medications: Opiates Substance Use Type Other:: couple times a week Preferred Language: Wolof Communication Ability: Effective Visual Impairment: No Limitations Hearing Ability: Normal Calender Tender Required: No Beliefs That Will Affect Care: None marital status: marital status details: 1 son, 3 daughters Current Living Situation: Spouse and Family Current Living Situation Comment: 1 Story home current occupational status: unemployed and disabled How many Children do You have: 5 Feels Safe at Home: Yes Childhood Exposure to Second-Hand Smoke: Yes Diet Comment: regular caffeine: Yes during the past year weight has: remained stable Dental Care, Regularly: No Physical Activity Frequency: Does not Exercise Seatbelt Use: never Sunscreen Use: No Assistive Devices: Oxygen - Continuous, Raised Toilet Seat and Wheelchair Physical Exam Physical Exam: On exam he is resting comfortably in bed in no acute distress in the Trendelenburg position. He is appropriate, alert and oriented x3, and answers all questions easily. Normal mentation. Pelvis and bilateral lower extremity exam reveals the patient have dry skin. He has a well-healed incision over the lateral aspect of the left hip from his previous total hip arthroplasty with an area of bruising measuring approximately 1 and half inches in diameter over the greater trochanter. Mild swelling here. He is tender to palpation maximally in this location. He also has some tenderness over the anterior aspect of the hip and more distally along the lateral side of the femur. Minimal tenderness in the posterior aspect of the hip. He is tender over the sacrum although there is no skin palpable step-offs. He is able to tolerate a gentle logroll with mild discomfort bilaterally. His skin is warm and well-perfused. He has neuropathy in both feet although its worse on the left than the right. He reports this is a stable condition. Stocking glove neuropathy starts about at the level of the left ankle. He is able to wiggle his toes and dorsi and plantarflex his ankles. Left elbow exam reveals the patient have a diminished range of motion actively from only 45 to 95 degrees. He is got good pronation to about 65 degrees but supination is limited to 30 degrees. He has 2 small cysts abrasions over the subcutaneous border of the ulna and the lateral epicondyle respectively. There is no signs of infection with these. No significant swelling. Distally neurovascularly intact. Results & Data ([facility]) Vital Signs (Past 12 Hours) Vital Signs Temp Pulse Pulse Resp BP Pulse Ox O2 Del Method 03/14/22 07:00 98 H 03/14/22 07:22 36.6 C 98 H 19 91/54 L 97 Nasal Cannula 03/14/22 03:23 36.8 C 95 H 18 91/52 L 96 Nasal Cannula 03/14/22 01:57 Nasal Cannula 03/14/22 01:29 36.6 C 76 16 94/57 L 98 Nasal Cannula 03/14/22 01:07 93 Nasal Cannula 03/13/22 23:28 77 16 168/92 H 93 Nasal Cannula O2 Flow Rate 03/14/22 07:00 03/14/22 07:22 2 03/14/22 03:23 2 03/14/22 01:57 2 03/14/22 01:29 2 03/14/22 01:07 2 03/13/22 23:28 2 Diagnostic Findings Abdomen/Pelvis CT 03/13/22 18:42 CT abd pelvis IV con only CLINICAL HISTORY: fall TECHNIQUE: Helical axial images of the abdomen and pelvis were obtained and displayed. Automated dose lowering techniques and/or adjustment according to patient size were utilized for this exam. This exam was performed with intravenous contrast. COMPARISON: Comparison is made to CT abdomen pelvis 08/12/2015 FINDINGS: Lower chest: Emphysema and thickening of the interstitium is noted. Liver: Unremarkable. No focal lesions are seen. Gallbladder and biliary tree: No calcified gallstones. Normal caliber wall. No intra- or extrahepatic biliary ductal dilation. Pancreas: Unremarkable, no focal lesions. Spleen: Unremarkable. Adrenals: Unremarkable. Kidneys and ureters: There is a 19 mm cyst in the right kidney. Additional hypod ensities are seen. Bladder: Unremarkable. Reproductive organs: Unremarkable. Bowel: Diverticulosis is seen without evidence of diverticulitis. The appendix is normal. Lymph nodes Retroperitoneal: Unremarkable. Pelvic: Unremarkable. Mesenteric: Unremarkable. Peritoneum: Trace fluid is in the peritoneum. Vessels: Atherosclerotic calcifications are seen. Abdominal wall: Unremarkable. Bones: Bilateral total hip arthroplasties are seen. Fractures are seen in the right transverse process of L5 as well as in the right sacral body. The sacral fracture does not appear to extend into the neural foramen. IMPRESSION: 1. Acute fractures of the right sacrum and right transverse process of L5. 2. Status post bilateral total hip arthroplasty. 3. Diverticulosis is seen without evidence of diverticulitis. 4. Additional findings as above. ACT 112: Negative or not required by law. Electronically signed by: Emre Medeiros M.D. 03/13/2022 9:[address] 03/13/22 18:42 CT cervical spine wo con CLINICAL HISTORY: fall TECHNIQUE: Multidetector row helical CT of the cervical spine was performed without administration of intravenous contrast. Coronal and sagittal reformations were obtained. Automated dose lowering techniques and/or adjustment according to patient size were utilized for this exam. Comparison: None available at the time of this dictation. FINDINGS: No acute fractures or subluxations are identified. Degenerative changes are seen in the visualized spine. Grade 1 anterolisthesis is seen at C3-C4. 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 Emphysema is seen. IMPRESSION: Degenerative changes without evidence of acute bony injury. ACT 112: Negative or not required by law. Electronically signed by: Emre Medeiros M.D. 03/13/2022 8:49 PM Chest X-Ray 03/13/22 18:42 XR chest 1V portable CLINICAL HISTORY: fall TECHNIQUE: Single frontal radiograph of the chest was obtained. Comparison: Comparison is made to chest radiograph 10/20/2021 FINDINGS: No lines and tubes are seen. The cardiomediastinal silhouette is normal. Severe emphysematous changes are seen. Linear densities in the right midlung are unchanged. Scarring is noted in the left upper lobe and there is a large bleb in the left apex. No evidence of pleural effusion or pneumothorax. Healed rib fractures are seen. IMPRESSION: 1. Redemonstration of emphysematous and scarring changes. ACT 112: Negative or not required by law. Electronically signed by: Emre Medeiros M.D. 03/13/2022 7:16 PM Elbow X-Ray 03/13/22 18:42 XR elbow LT min 3V routine CLINICAL HISTORY: fall TECHNIQUE: 3 views of the left elbow were obtained. Comparison: None available at the time of this dictation. FINDINGS: There is no evidence of an acute fracture. Joint spaces are well-preserved. There is no prominence of the anterior or posterior fat pads to suggest an effusion. No soft tissue abnormality is seen. IMPRESSION: No evidence of acute osseous injury. ACT 112: Negative or not required by law. Electronically signed by: Emre Medeiros M.D. 03/13/2022 7:[address] 03/13/22 18:42 CT head/brain wo con CLINICAL HISTORY: fall Technique: Contiguous axial CT images of the head were acquired from the base of the skull to the vertex without intravenous contrast administration. Images were viewed in brain, subdural and bone windows. Automated dose lowering techniques and/or adjustment according to patient size were utilized for this exam. Comparison: None available at the time of this dictation. Findings: Areas of decreased attenuation are present in the periventricular and subcortical white matter bilaterally consistent with small vessel ischemic disease. Generalized cerebral atrophy with commensurate enlargement of the ventricles, sulci, and cisterns is also present. There is no acute intracranial hemorrhage or evidence of acute territorial infarction. No shift of the midline structures, mass effect, or extra-axial abnormalities are shown. Atherosclerotic calcifications are present in the intracranial segments of the internal carotid arteries. Encephalomalacia is in the right frontal lobe. Imaged portions of the paranasal sinuses and mastoid air cells are clear. The orbits appear normal. There are no acute fractures of the calvaria or scalp swelling. Impression: No acute intracranial hemorrhage, no evidence of acute territorial infarction or other acute intracranial disease process. ACT 112: Negative or not required by law. Electronically signed by: Emre Medeiros M.D. 03/13/2022 8:46 PM Pelvis X-Ray 03/13/22 18:43 XR pelvis 1-2V routine, XR femur LT 2V routine CLINICAL HISTORY: fall TECHNIQUE: A single frontal view of the pelvis was obtained. Views of the left femur were obtained. Comparison: Comparison is made to pelvic radiograph 12/10/2021 FINDINGS: Bilateral total hip arthroplasties are seen. There is an acute fracture in the proximal left femur which is minimally displaced and seen on the femur radiographs only. Degenerative changes are seen in the hip joints and lumbar spine. Soft tissue swelling is seen. IMPRESSION: There is a comminuted, minimally displaced fracture of the proximal left femur at the greater trochanter. Bilateral total hip arthroplasties are seen. ACT 112: Negative or not required by law. Electronically signed by: Emre Medeiros M.D. 03/13/2022 7:12 PM Femur X-Ray 03/13/22 18:44 XR pelvis 1-2V routine, XR femur LT 2V routine CLINICAL HISTORY: fall TECHNIQUE: A single frontal view of the pelvis was obtained. Views of the left femur were obtained. Comparison: Comparison is made to pelvic radiograph 12/10/2021 FINDINGS: Bilateral total hip arthroplasties are seen. There is an acute fracture in the proximal left femur which is minimally displaced and seen on the femur radiographs only. Degenerative changes are seen in the hip joints and lumbar spine. Soft tissue swelling is seen. IMPRESSION: There is a comminuted, minimally displaced fracture of the proximal left femur at the greater trochanter. Bilateral total hip arthroplasties are seen. ACT 112: Negative or not required by law. Electronically signed by: Emre Medeiros M.D. 03/13/2022 7:[address] 03/13/22 20:22 CT chest diagnostic w con CLINICAL HISTORY: fall TECHNIQUE: Multidetector row helical CT of the chest was performed with intravenous contrast. Coronal and sagittal reformations were obtained. Automated dose lowering techniques and/or adjustment according to patient size were utilized for this exam. CT DOSE: 538.05 mGy.cm Comparison: None available at the time of this dictation. FINDINGS: Lungs and pleura: Paraseptal emphysema and interstitial thickening is seen. Stable 10 mm nodule in the right upper lobe (image 112 of series 6). Redemonstration of left pleural gas. Heart and pericardium: Heart size is normal. No pericardial effusion. Vessels: Unremarkable. Mediastinum and guerrero: Subcentimeter lymph nodes are seen. Chest wall and lower neck: Gynecomastia is noted bilaterally. Abdomen: For findings below the diaphragm, please refer to CT of the abdomen thong ed the same. Bones: Degenerative changes in the thoracic spine. Old healed fractures are seen in the anterolateral aspect of the right fourth, fifth, and sixth ribs. Healing fractures are seen in the left anterior fourth and fifth ribs. Degenerative changes are seen in the left shoulder joint. IMPRESSION: 1. Healing fractures are seen in the bilateral anterolateral ribs. No evidence of acute fracture is seen. 2. Severe emphysema and scarring. 3. Redemonstration of left pleural gas which may possibly represent bronchopleural fistula. ACT 112: Negative or not required by law. Electronically signed by: Emre Medeiros M.D. 03/13/2022 8:57 PM (1) Closed fracture of sacrum Encounter type: initial encounter Zone of sacrum fracture: unspecified portion of sacrum Qualified Code(s): S32.10XA - Unspecified fracture of sacrum, initial encounter for closed fracture (2) Closed L5 vertebral fracture Encounter type: initial encounter Fracture morphology: unspecified fracture morphology Qualified Code(s): S32.059A - Unspecified fracture of fifth lumbar vertebra, initial encounter for closed fracture
--- NOTE | 2022-03-14 16:35 | Hospitalist Progress Note ---
Date of Service March 14, 2022 Assessment & Plan (1) Femur fracture, left: Plan: X-ray on 03/13 showed "comminuted, minimally displaced fracture of the proximal left femur at the greater trochanter." Non-operative per orthopedics. Weight-bearing as tolerated. - Pain control - PT/OT -> Likely rehab. (2) Closed fracture of sacrum: Plan: Non-operative. Weight-bearing as tolerated. - Pain management as above (3) Closed L5 vertebral fracture: Plan: Non-operative. Weight-bearing as tolerated. - Pain management as above (4) Acute hyponatremia: Plan: Sodium 121 on admission. Urine osmolality 227. Suggesting polydipsia. - Na now up to 127 on 03/14. - Continue Sodium chloride 1 g p.o. twice daily - Serial BMP (5) Anemia: Plan: Baseline hgb seems to run ~8 - 9 mg/dL. Presently at 7.8. No signs/symptoms of GI bleed. Will watch closely for sign of internal bleeding and would have low threshold for repeat CT scan and/or transfusion. Likely poor bone marrow response from chronic disease and likely from MTX suppressing production. - Monitor - Get anemia labs with AM lab set (6) Anxiety: Plan: Anxiety/depression/seizure disorder. Appears to be stable at this point. No overt symptoms. - Continue buspirone, carbamazepine, and venlafaxine. (7) Chronic pain syndrome: Plan: Received oxycodone 10 mg PO TID chronically from his PCP. - Will continue this and add in morphine for severe pain given his acute fractures (8) Rheumatoid arthritis: Plan: On MTX weekly. - Continue MTX and folic acid (9) Acid reflux: Plan: - Continue pantoprazole (10) Benign prostate hyperplasia: Plan: - Continue tamsulosin (11) Chronic obstructive pulmonary disease: Plan: Breathing comfortably on 2L NC. Reviewed his CT chest from 03/13 which does appear stable from 02/19. 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 - Continue routine inhalers (12) Cirrhosis, alcoholic: Plan: Appears compensated at this time. Normal LFTs. - Monitor (13) Chronic kidney disease, stage III (moderate): Plan: Baseline Cr ~0.9, CKD Stage II-III. - Presently at baseline. - Monitor (14) Hypothyroidism: Plan: Last TSH was 0.544. - Continue levothyroxine - Recheck TSH (15) DVT prophylaxis: Plan: High risk given fractures, cirrhosis, but higher risk of bleeding given recent fractures. - Will start Lovenox 40 mg SQ daily in AM if hgb stable. Admission and Anticipated Discharge Date Admission Date: March 13, 2022 Subjective Doing quite well. Not really in pain "if he doesn't move." Otherwise, doing well. Reports no fevers/chills, chest pain, shortness of breath, abdominal pain, nausea, or vomiting. Physical Exam Constitutional: WD/WN, vitals as above Eyes: EOM intact bilaterally; no conjunctival abnormality ENMT: external ear and nose normal, oropharynx normal Neck: trachea midline, no thyromegaly normal visual inspection Respiratory: normal respiratory effort, lungs clear to auscultation no respiratory distress Cardiovascular: RRR, no murmur, no edema Gastrointestinal (Abdomen): Inspection/Auscultation: abdomen normal to inspection; abdomen not distended Musculoskeletal: No overt deformities that I see. Skin: no rashes, warm and dry Neurologic: moves all extremities and awake Psychiatric: Orientation: alert, oriented to person and cooperative Results & Data Results & Data ([facility]) Vital Signs (Past 12 Hours) Vital Signs Temp Pulse Pulse Resp BP Pulse Ox Pulse Ox 03/14/22 08:00 97 03/14/22 15:27 94 H 03/14/22 15:14 37.3 C 87 18 88/47 L 95 03/14/22 08:00 03/14/22 11:15 36.8 C 95 H 19 90/56 L 98 03/14/22 07:00 98 H 03/14/22 07:22 36.6 C 98 H 19 91/54 L 97 O2 Del Method O2 Del Method O2 Flow Rate O2 Flow Rate 03/14/22 08:00 Nasal Cannula 2 03/14/22 15:27 03/14/22 15:14 Nasal Cannula 2 03/14/22 08:00 Nasal Cannula 2 03/14/22 11:15 Nasal Cannula 2 03/14/22 07:00 03/14/22 07:22 Nasal Cannula 2 PG Care Time/CCT Total # of Minutes Spent Total Time Spent with Patient: Total time spent is greater than 50% in coordination of care (as documented) at patient's floor/unit and/or counseling patient: Coding Level of Care Code 14111 Subseq Hosp Care Lvl 3 Diagnoses Femur fracture, left S72.92XA Encounter type: initial encounter Femur location: unspecified portion of femur Fracture morphology: unspecified fracture morphology Fracture type: closed Closed fracture of sacrum S32.10XA Encounter type: initial encounter Zone of sacrum fracture: unspecified portion of sacrum Closed L5 vertebral fracture S32.059A Encounter type: initial encounter Fracture morphology: unspecified fracture morphology Acute hyponatremia E87.1 Anemia D64.9 Anxiety F41.9 Chronic pain syndrome G89.4 Rheumatoid arthritis M06.9 Acid reflux K21.9 Benign prostate hyperplasia N40.0 Chronic obstructive pulmonary disease J44.9 Cirrhosis, alcoholic K70.30 Chronic kidney disease, stage III (moderate) N18.3 Hypothyroidism E03.9 DVT prophylaxis Z29.9 (1) Closed L5 vertebral fracture Encounter type: initial encounter Fracture morphology: unspecified fracture morphology Qualified Code(s): S32.059A - Unspecified fracture of fifth lumbar vertebra, initial encounter for closed fracture (2) Closed fracture of sacrum Encounter type: initial encounter Zone of sacrum fracture: unspecified portion of sacrum Qualified Code(s): S32.10XA - Unspecified fracture of sacrum, initial encounter for closed fracture (3) Femur fracture, left Encounter type: initial encounter Femur location: unspecified portion of femur Fracture morphology: unspecified fracture morphology Fracture type: closed Qualified Code(s): S72.92XA - Unspecified fracture of left femur, initial encounter for closed fracture
--- NOTE | 2022-03-14 20:32 | Communication Note ---
Date of Service: March 14, 2022 esqueda issue. clots. bladder scan 200mL nursing removed esqueda and inserted [address] esqueda. unable to flush. continues to have clots. firm suprapubic area on exam. complaining of pain initial plan was for CBI but patient fell asleep when patient woke up, worsened pain. bladder scan >999mL. nursing attempted to flush out clots, but only mildly successful ordered ct abd/pelv w/o contrast to assess position of esqueda and r/o false tract statrad showing esqueda in membranous urethra. possible traumatic insertion vs concern for gangrenous process given gas clinically, lower suspicion for infectious process urology consulted day hospitalist to follow closely
[2022-03-14] MEDS: oxyCODONE HCL IR 5 MG TAB (IMMEDIATE RELEASE) PO PRN (22:03)
[2022-03-14] MEDS: DOCUSATE SODIUM/SENNA 50/8.6MG TAB PO SCH (22:05)
[2022-03-14] MEDS: TAMSULOSIN HCL 0.4 MG CAP PO SCH (22:05)
[2022-03-14] MEDS: ROSUVASTATIN CALCIUM 5 MG TAB PO SCH (22:06)
[2022-03-14] MEDS: PANTOprazole 40 MG TAB PO SCH (22:08)
[2022-03-15] MEDS: MoRPHine SULFATE 4 MG/ML 1 ML CARP\\VIAL IV PRN ×2 (03:46→07:45)
[2022-03-15] MEDS: oxyCODONE HCL IR 5 MG TAB (IMMEDIATE RELEASE) PO PRN ×2 (05:24→18:38)
[2022-03-15] MEDS: LEVOTHYROXINE SODIUM 25 MCG TABLET PO SCH (05:24)
[2022-03-15 07:37] LABS: Basophils # (auto) 0.03 K/uL (0-0.2); Basophils % (auto) 0.2 %; Hematocrit (blood only) 23.1 % (40.1-51.0); Hemoglobin 7.9 g/dl (14.0-18.0); Immature Granulocytes % (auto) 0.8 %; Lymphocytes # (auto) 0.31 K/uL (1.2-3.4); Lymphocytes % (auto) 2.4 %; Mean Corpuscular Hemoglobin 35.7 pg (25.0-34.0); Mean Corpuscular Hgb Conc 34.2 g/dL (32.0-36.0); Mean Corpuscular Volume 104.5 fL (80.0-100.0); Mean Platelet Volume 8.7 fL (9.4-12.4); Monocytes # (auto) 0.89 K/uL (0.24-0.82); Monocytes % (auto) 6.8 %; Neutrophils % (auto) 89.8 %; Platelet Count 263 K/uL (130-400); RDW Coefficient of Variation 17.8 % (11.5-14.5); RDW Standard Deviation 68.5 fL (36.4-46.3); Red Blood Count 2.21 M/uL (4.63-6.08); White Blood Count 13.03 K/ul (4.8-10.8)
[2022-03-15 08:04] LABS: Anisocytosis Present; Polychromasia 1+
[2022-03-15 08:17] LABS: Ferritin 62.8 ng/ml (8-388)
[2022-03-15 08:38] LABS: Albumin Globulin Ratio 0.9 (0.9-2); Albumin Level 3.6 gm/dl (3.4-5.0); BUN Creatinine Ratio 14.4 (10-20); Bilirubin,Total 0.4 mg/dl (0.2-1.0); Calcium 9.3 mg/dl (8.5-10.1); Creatinine Clr Calc Pharmacy 68.5 ml/min; Est GFR (African American) 97.3 ml/min; Est GFR (Non-African American) 83.9 ml/min; Globulin 3.9 gm/dl (2.5-4.0); Magnesium 1.7 mg/dl (1.7-2.4); Potassium 4.2 mmol/L (3.5-5.1); Total Protein 7.5 gm/dl (6.0-8.3)
--- NOTE | 2022-03-15 08:46 | CT Scan Report ---
ABDOMEN AND PELVIS CT WITHOUT CONTRAST CT DOSE: 278.29 mGy.cm HISTORY: Acute pelvic pain with Esqueda catheter placement check esqueda position. obstruction and clots TECHNIQUE: Multiaxial CT images of the abdomen and pelvis were performed without contrast. A dose lo wering technique was utilized adhering to the principles of ALARA. COMPARISON STUDY: CT abdomen and pelvis 03/13/2022, pelvis radiographs 12/10/2021 FINDINGS: Emphysema with bronchitis and bibasilar mucous plugging. Tree-in-bud nodules in the right g reater than left lung bases with subsegmental bibasilar atelectasis. No pneumatosis or pneumoperitone um. The imaged inferior cardiac chambers are unremarkable. The unenhanced spleen measures within the upper limits of normal in size. The pancreas and adrenal glands are unremarkable. Hyperdense material within the gallbladder is suggestive of vicarious excretion of contrast. The unenhanced liver is wit hin normal limits. Nonspecific bilateral perinephric stranding. There is residual contrast in the bilateral renal collec ting systems and ureters. 2.2 cm right renal cyst. No hydronephrosis. Distended contrast-filled urina ry bladder measures up to approximately 16 cm. Air is noted within the nondependent urinary bladder l umen. The pelvic structures are suboptimally dilated secondary to streak artifact from the bilateral hip total joint arthroplasties. The Esqueda balloon catheter is inflated within the urethra, possibly t he membranous portion. Deep tissue air is noted along the posterior margins of the balloon extending into the perineum. Atherosclerosis of the aorta. There is no lymphadenopathy identified. No bowel obstruction or bowel wall thickening. Colonic diverticulosis. Moderate colonic fecal retenti on with mild gaseous distention of the large bowel. Noninflamed appendix. Mild generalized body wall edema. Degenerative changes of the spine. Healed chronic rib fractures. Acute to subacute appearing r ight greater left bilateral sacral alar fractures with fracture extension into the mid to inferior sa malcom. There is a few millimeters of displacement involving the mid sacrum. Acute nondisplaced fractur e of the right L5 transverse process. Bilateral hip total joint arthroplasties. Transitional lumbosac ral anatomy. IMPRESSION: 1. Malpositioned Esqueda catheter with the balloon inflated within the urethra, possibly the membranous portion. Deep tissue air within the perineum and ischiorectal anal fossa is likely on a posttraumati c basis. 2. Distended air and contrast filled urinary bladder. 3. Acute to subacute appearing fractures of the sacrum and right L5 transverse process appear unchang ed from the 03/13/2022 exam. 4. Emphysema with bronchitis and bibasilar infectious or inflammatory bronchiolitis. Correlate clinic ally to exclude aspiration. 5. No bowel obstruction or bowel wall thickening. 6. Additional findings as above. ACT 112: Negative or not required by law. The above report was generated using voice recognition software. It may contain grammatical, syntax o r spelling errors. Electronically signed by: Anders Rangel M.D. 03/15/2022 8:45 AM
[2022-03-15] MEDS: busPIRone 15 MG TAB PO SCH ×2 (09:24→20:38)
[2022-03-15] MEDS: SODIUM CHLORIDE 1 GM TABLET PO SCH ×2 (09:24→20:39)
[2022-03-15] MEDS: carBAMazepine 100 MG CHEW TAB PO SCH ×2 (09:24→20:39)
[2022-03-15] MEDS: CHOLECALCIFEROL 5,000 UNITS 125 MCG TAB PO SCH (09:24)
[2022-03-15] MEDS: FOLIC ACID 1 MG TAB PO SCH (09:25)
[2022-03-15] MEDS: GABAPENTIN 600 MG TAB PO SCH ×4 (09:25→20:38)
[2022-03-15] MEDS: VENLAFAXINE HCL XR 75 MG CAPXR PO SCH ×3 (09:25→20:40)
[2022-03-15] MEDS: UMECLIDINIUM BROMIDE 62.5MCG/BLISTER 7 PUFFS/INHALER INH SCH (09:26)
[2022-03-15] MEDS: FLUTICASONE/VILANTEROL 100/25MCG 14 PUFFS/INHALER INH SCH (09:26)
--- NOTE | 2022-03-15 09:32 | Urology Consultation ---
Date of Consultation March 15, 2022 Assessment & Plan (1) Urinary retention: Patient seen and evaluated for urinary retention with inability to correctly position a catheter It appears that the balloon was inflated with 20 cc of water in the urethra, this likely causes significant urethral trauma as evidenced by the CT Did review and discussed the CT, the radiologist raised the question of a gas- forming infectionI am quite confident that that is not the case and this was simply an error related to Pool trauma and efforts to irrigate the catheter After removal of the catheter he did void spontaneously but only a small portion of the bladder was emptied I made numerous efforts to access the bladder per urethra without success I then passed a flexible cystoscope and identified a substantial false passage as well as significant urethral trauma in the area of the balloon inflation I was able to identify the true lumen and I passed a Super Stiff wire into the true lumen and up into the bladder I then performed a dilation although based on palpation I am uncertain that he had a dense stricture I did dilate to 22 Micronesian with Vishal style dilators I then placed a reno-sparks tip catheter over the wire and had an immediate return of a significant amount of clear urine Pool catheter was left in place and the case was concluded He is in stable condition Please contact us if further issues Okay to remove the catheter after 3 to 5 days History of Present Illness Attending Physician: Kelechi Gracia MD History of Present Illness 61-year-old gentleman with a multitude of chronic issues who presents to the hospital after a minor trauma and some fractures Unfortunately catheter placement last night was complicated by malpositioning of the catheter and development of a false passage Numerous attempts were made to exchange the catheter without relief I was called this morning to evaluate His bladder is palpably distended and he is quite uncomfortable I remove the catheter that was indwelling and he was able to spontaneously void 200 cc of relatively clear urine, unfortunately, I believe this only represents a small portion of the urine within the bladder and I felt we needed to move forward with catheter placement Allergies Allergy/AdvReac Type Severity Reaction Status Date / Time pregabalin Allergy Severe ANAPHYLAXIS Verified 03/13/22 22:42 Home Medications Medication Instructions Recorded Confirmed Type fluticasone furoate 100 1 inh inhalation QAM #60 ea 04/29/20 03/13/22 Rx mcg-vilanterol 25 mcg/dose inhalation powder (Breo Ellipta) aspirin 81 mg tablet,delayed 81 mg PO QAM 05/19/21 03/13/22 History release cholecalciferol (vitamin D3) 125 5,000 unit PO QAM 05/19/21 03/13/22 History mcg (5,000 unit) tablet folic acid 1 mg tablet 1 mg PO QAM 05/19/21 03/13/22 History gabapentin 100 mg capsule 100 mg PO QID #360 caps 06/30/21 03/13/22 Rx pantoprazole 40 mg tablet,delayed 40 mg PO QPM #90 tabs 06/30/21 03/13/22 Rx release sennosides 8.6 mg tablet 8.6 mg PO BID #60 tabs 07/01/21 03/13/22 Rx docusate sodium 100 mg capsule 100 mg PO BID #180 caps 07/24/21 03/13/22 Rx rosuvastatin 5 mg tablet (Crestor) 5 mg PO PM #90 tabs 07/24/21 03/13/22 Rx methotrexate sodium 2.5 mg tablet 15 mg PO WK 30 days #180 tabs 09/22/21 03/13/22 Rx tamsulosin 0.4 mg capsule 0.4 mg PO PM #90 caps 09/22/21 03/13/22 Rx buspirone 15 mg tablet See Rx Instructions .Route 11/03/21 03/13/22 Rx .COMPLEX #90 tabs venlafaxine 75 mg capsule,extended 75 mg PO TID #90 caps 12/02/21 03/13/22 Rx release 24 hr gabapentin 600 mg tablet 600 mg PO QID #120 tabs 02/03/22 03/13/22 Rx oxycodone 10 mg tablet 10 mg PO TID PRN pain #90 tabs 02/17/22 03/13/22 Rx ipratropium 0.5 mg-albuterol 3 mg 3 ml inhalation Q6H PRN Shortness 02/25/22 03/13/22 Rx (2.5 mg base)/3 mL nebulization Of Breath Or Wheezing J44.9;j44.1 soln #3 mL carbamazepine 100 mg chewable 100 mg PO BID 03/13/22 03/14/22 History tablet levothyroxine 25 mcg tablet 25 mcg PO DAILYBB 03/13/22 03/13/22 History Patient History Medical History Acid reflux Stable and controlled per patient Anemia Anxiety Benign prostate hyperplasia Charcot's joint of foot, non-diabetic Chronic kidney disease, stage III (moderate) Chronic obstructive pulmonary disease Chronic pain syndrome Multifactorial in nature- LDD, neuropathy, OA, RA Cirrhosis, alcoholic HX OF (LAST ETOH 10 YEARS AGO) Follows with GI routinely Depression Flexion deformity of hand Unable to fully extend 4th and 5th digits of left hand History of stroke 2011 - NO PHYSICAL RESIDUAL EFFECTS, MEMORY PROBLEM FOLLOWING - HAS RECOVERED SOME BUT NOT ENTIRELY Hypothyroidism Hypoxemic respiratory failure, chronic resolved per pt Lumbar disc herniation with radiculopathy Neuropathy, alcoholic Fair control On gabapentin On home oxygen therapy 2L n/c at HS and prn Peripheral arterial disease Stable per 03/2021 PCP note- no significant blockage with LE angiogram in 12/2020 Portal hypertension Rheumatoid arthritis Follows with rheum - [facility] T2DM (type 2 diabetes mellitus) NIDDM > diet controlled Glucose stable Surgical History H/O hand surgery (02/07/21) R index, middle, ring and small finger MCP joint silicone implant arthroplasties w/ extensor tendon centralization H/O oral surgery ALL TEETH OUT History of bronchoscopy (~09/2021) History of esophagogastroduodenoscopy (EGD) Hx of surgical procedure (12/2020) Angio Extremity > bilat legs Hx of umbilical hernia repair 11/14/12 S/P epidural steroid injection Status post left hip replacement (01/2018) Status post right hip replacement (10/2018) Status post-operative repair of closed fracture of left hip (2012) IM nail placement L hip Family History Father Family history of cardiac pacemaker Coronary heart disease Aneurysm Cardiac pacemaker Hx of CABG Mother Family history of cardiac pacemaker Diabetes Cardiac pacemaker Hypertension Brother Diabetes Other Family history non-contributory No family history of adverse response to anesthesia Denies family history of Colon cancer Ovarian cancer Prostate cancer Myocardial infarction Breast cancer Social History Smoking Status: Current every day smoker Tobacco Type: Cigarettes Age Started Using Tobacco: 13; packs per day: 0.25; Cigarettes Per Day: 0.5 pack a day; Second Hand Exposure: No; Hx Alcohol Use: Yes Alcohol type: beer Hx Substance Use: Yes Prescribed Medications: Opiates Substance Use Type Other:: couple times a week Preferred Language: Khmer Communication Ability: Effective Visual Impairment: No Limitations Hearing Ability: Normal 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: No Beliefs That Will Affect Care: None marital status: marital status details: 1 son, 3 daughters Current Living Situation: Spouse and Family Current Living Situation Comment: 1 Story home current occupational status: unemployed and disabled How many Children do You have: 5 Feels Safe at Home: Yes Childhood Exposure to Second-Hand Smoke: Yes Diet Comment: regular caffeine: Yes during the past year weight has: remained stable Dental Care, Regularly: No Physical Activity Frequency: Does not Exercise Seatbelt Use: never Sunscreen Use: No Assistive Devices: Oxygen - Continuous, Raised Toilet Seat and Wheelchair Review of Systems Constitutional: no fever, no chills and no fatigue Eyes: no worsening vision Ear, Nose, Mouth, Throat: no facial pain and no pain with swallowing Respiratory: no cough and no dyspnea Cardiovascular: no chest pain and no palpitations Gastrointestinal: + abdominal pain; no nausea and no vomiting Musculoskeletal: + back pain Significant leg pain from fractures Integumentary: no rash and no urticaria Neurologic: no gait abnormality and no unsteadiness Psychiatric: no behavioral changes and no depression Endocrine: no fatigue Physical Exam Physical Exam: Moderately uncomfortable appearing Minimal mobility right now Abdomen is notably distended with the bladder very full and tense Catheter was in the urethra on arrival, unfortunately only about 3 inches of catheter extended into the urethra. There is only bloody discharge through the catheter Results & Data ([facility]) Vital Signs (Past 12 Hours) Vital Signs Temp Pulse Pulse Resp BP Pulse Ox Pulse Ox 03/15/22 08:00 94 03/15/22 07:13 36.9 C 107 H 22 125/72 94 03/15/22 03:47 36.9 C 112 H 17 135/75 93 03/14/22 23:59 94 H 03/14/22 23:56 37.2 C 89 22 137/76 95 O2 Del Method O2 Del Method O2 Flow Rate O2 Flow Rate 03/15/22 08:00 Nasal Cannula 2 03/15/22 07:13 Nasal Cannula 03/15/22 03:47 Nasal Cannula 03/14/22 23:59 03/14/22 23:56 Nasal Cannula 2 PG Care Time/CCT Total # of Minutes Spent Total Time Spent with Patient: Total time spent is greater than 50% in coordination of care (as documented) at patient's floor/unit and/or counseling patient: Coding Level of Care Code 31900 Inpt Consult Level 5 Diagnoses Urinary retention R33.9
--- NOTE | 2022-03-15 16:52 | Hospitalist Progress Note ---
Date of Service March 15, 2022 Assessment & Plan (1) Urethral trauma: Plan: Overnight of 03/14-03/15, had hematuria and UOP dropped. Attempted to flush without success. CT a/p showed Pool balloon inflated in urethra. - Urology consulted on 03/15. Required cystoscopy, but was able to place Pool. - Leave Pool in place until at least 03/19/2022. - Lower UOP on 03/15 -> Will start light IV fluids. PVR 0 mL. Urgent bedside u/s to look at bladder ordered, but suspicion is fairly low as trauma was in urethra, and Pool is now correctly placed. (2) Femur fracture, left: Plan: X-ray on 03/13 showed "comminuted, minimally displaced fracture of the proximal left femur at the greater trochanter." Non-operative per orthopedics. Weight- bearing as tolerated. - Pain control - PT/OT -> Likely rehab. (3) Closed fracture of sacrum: Plan: Non-operative. Weight-bearing as tolerated. - Pain management as above (4) Closed L5 vertebral fracture: Plan: Non-operative. Weight-bearing as tolerated. - Pain management as above (5) Acute hyponatremia: Plan: Sodium 121 on admission. Urine osmolality 227. Suggesting polydipsia vs low solute. - Na now up to 128 on 03/15. - Continue sodium chloride 1 g p.o. twice daily - Serial BMP (6) Anemia: Plan: Baseline hgb seems to run ~8 - 9 mg/dL. Presently at 7.8. No signs/symptoms of GI bleed. Will watch closely for sign of internal bleeding and would have low threshold for repeat CT scan and/or transfusion. Likely poor bone marrow response from chronic disease and likely from MTX suppressing production. - Anemia labs indicate chronic disease. - Monitor (7) Anxiety: Plan: Anxiety/depression/seizure disorder. Appears to be stable at this point. No overt symptoms. - Continue buspirone, carbamazepine, and venlafaxine. (8) Chronic pain syndrome: Plan: Received oxycodone 10 mg PO TID chronically from his PCP. - Will continue this and add in morphine for severe pain given his acute fractures (9) Rheumatoid arthritis: Plan: On MTX weekly. - Continue MTX and folic acid (10) Acid reflux: Plan: - Continue pantoprazole (11) Benign prostate hyperplasia: Plan: - Continue tamsulosin (12) Chronic obstructive pulmonary disease: Plan: Breathing comfortably on 2L NC. Reviewed his CT chest from 03/13 which does appear stable from 02/19. 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 - Continue routine inhalers (13) Cirrhosis, alcoholic: Plan: Appears compensated at this time. Normal LFTs. - Monitor (14) Chronic kidney disease, stage III (moderate): Plan: Baseline Cr ~0.9, CKD Stage II-III. - Presently at baseline. - Monitor (15) Hypothyroidism: Plan: TSH this admission was 1.7. - Continue levothyroxine (16) DVT prophylaxis: Plan: High risk given fractures, cirrhosis, but higher risk of bleeding given recent fractures. - Will start Lovenox 40 mg SQ daily in AM if hgb stable and hematuria is resolving. Admission and Anticipated Discharge Date Admission Date: March 13, 2022 Subjective Seen in AM with bladder issues ongoing. In quite a bit of pain. Reports no fevers/chills, chest pain, shortness of breath, abdominal pain, naus ea, or vomiting. Physical Exam Constitutional: WD/WN, vitals as above Eyes: EOM intact bilaterally; no conjunctival abnormality ENMT: external ear and nose normal, oropharynx normal Neck: trachea midline, no thyromegaly normal visual inspection Respiratory: normal respiratory effort, lungs clear to auscultation no respiratory distress Cardiovascular: RRR, no murmur, no edema Gastrointestinal (Abdomen): Inspection/Auscultation: abdomen normal to inspection; abdomen not distended Skin: no rashes, warm and dry Neurologic: moves all extremities and awake Psychiatric: Orientation: alert, oriented to person and cooperative Genitourinary: Large, distended bladder Results & Data Results & Data ([facility]) Vital Signs (Past 12 Hours) Vital Signs Temp Pulse Pulse Resp BP Pulse Ox Pulse Ox 03/15/22 15:55 89 03/15/22 15:43 36.9 C 94 H 18 95/58 L 96 03/15/22 11:00 03/15/22 10:44 37.4 C 94 H 17 105/61 94 03/15/22 08:00 109 H 03/15/22 08:00 94 03/15/22 07:13 36.9 C 107 H 22 125/72 94 O2 Del Method O2 Del Method O2 Flow Rate O2 Flow Rate 03/15/22 15:55 03/15/22 15:43 Nasal Cannula 2 03/15/22 11:00 Nasal Cannula 2 03/15/22 10:44 Nasal Cannula 03/15/22 08:00 03/15/22 08:00 Nasal Cannula 2 03/15/22 07:13 Nasal Cannula PG Care Time/CCT Total # of Minutes Spent Total Time Spent with Patient: Total time spent is greater than 50% in coordination of care (as documented) at patient's floor/unit and/or counseling patient: Coding Level of Care Code 85600 Subseq Hosp Care Lvl 3 Diagnoses Urethral trauma S37.30XA Femur fracture, left S72.92XA Encounter type: initial encounter Femur location: unspecified portion of femur Fracture morphology: unspecified fracture morphology Fracture type: closed Closed fracture of sacrum S32.10XA Encounter type: initial encounter Zone of sacrum fracture: unspecified portion of sacrum Closed L5 vertebral fracture S32.059A Encounter type: initial encounter Fracture morphology: unspecified fracture morphology Acute hyponatremia E87.1 Anemia D64.9 Anxiety F41.9 Chronic pain syndrome G89.4 Rheumatoid arthritis M06.9 Acid reflux K21.9 Benign prostate hyperplasia N40.0 Chronic obstructive pulmonary disease J44.9 Cirrhosis, alcoholic K70.30 Chronic kidney disease, stage III (moderate) N18.3 Hypothyroidism E03.9 DVT prophylaxis Z29.9 (1) Femur fracture, left Encounter type: initial encounter Femur location: unspecified portion of femur Fracture morphology: unspecified fracture morphology Fracture type: closed Qualified Code(s): S72.92XA - Unspecified fracture of left femur, initial encounter for closed fracture (2) Closed fracture of sacrum Encounter type: initial encounter Zone of sacrum fracture: unspecified portion of sacrum Qualified Code(s): S32.10XA - Unspecified fracture of sacrum, initial encounter for closed fracture (3) Closed L5 vertebral fracture Encounter type: initial encounter Fracture morphology: unspecified fracture morphology Qualified Code(s): S32.059A - Unspecified fracture of fifth lumbar vertebra, initial encounter for closed fracture
[2022-03-15] MEDS ORDERED: LACTATED RINGER'S 500 ML IV ONE (16:55)
[2022-03-15] MEDS: cefTRIAXone SODIUM 1,000 MG in DEXTROSE 5% 50 ML IV SCH (17:20)
--- NOTE | 2022-03-15 17:28 | Ultrasound Report ---
US abdomen limited CLINICAL HISTORY: Review bladder to ensure compressed around Pool. TECHNIQUE: Multiple real-time sonographic images of the bladder were obtained. Comparison: Comparison is made to CT abdomen pelvis 03/15/2022 FINDINGS: A Pool catheter is seen within the bladder. The bladder wall appears thickened measuring 8 mm in kendy meter. IMPRESSION: Underdistended bladder drained by Pool catheter. Wall thickening is seen which may reflect chronic o bstruction in this patient with prostatomegaly. Correlation with urinalysis is recommended to exclude UTI. ACT 112: Negative or not required by law. Electronically signed by: Emre Medeiros M.D. 03/15/2022 5:27 PM
[2022-03-15] MEDS: ROSUVASTATIN CALCIUM 5 MG TAB PO SCH (20:38)
[2022-03-15] MEDS: DOCUSATE SODIUM/SENNA 50/8.6MG TAB PO SCH (20:39)
[2022-03-15] MEDS: PANTOprazole 40 MG TAB PO SCH (20:39)
[2022-03-15] MEDS: TAMSULOSIN HCL 0.4 MG CAP PO SCH (20:39)
[2022-03-16] MEDS: LEVOTHYROXINE SODIUM 25 MCG TABLET PO SCH (05:54)
[2022-03-16 06:33] LABS: Hemoglobin 6.5 g/dl (14.0-18.0); Mean Corpuscular Hemoglobin 34.6 pg (25.0-34.0); Mean Corpuscular Hgb Conc 34.2 g/dL (32.0-36.0); Mean Corpuscular Volume 101.1 fL (80.0-100.0); Mean Platelet Volume 9.1 fL (9.4-12.4); Platelet Count 197 K/uL (130-400); RDW Coefficient of Variation 17.8 % (11.5-14.5); RDW Standard Deviation 66.4 fL (36.4-46.3); Red Blood Count 1.88 M/uL (4.63-6.08); White Blood Count 8.82 K/ul (4.8-10.8)
[2022-03-16 06:39] LABS: BUN Creatinine Ratio 11.9 (10-20); Calcium 8.6 mg/dl (8.5-10.1); Creatinine Clr Calc Pharmacy 66.2 ml/min; Est GFR (African American) 92.6 ml/min; Est GFR (Non-African American) 79.9 ml/min; Magnesium 1.8 mg/dl (1.7-2.4); Potassium 3.9 mmol/L (3.5-5.1)
[2022-03-16 07:08] LABS: Basophils # (auto) 0.03 K/uL (0-0.2); Basophils % (auto) 0.3 %; Eosinophils # (auto) 0.06 K/uL (0-0.50); Eosinophils % (auto) 0.7 %; Immature Granulocytes # (auto) 0.04 K/uL (0.00-0.02); Immature Granulocytes % (auto) 0.5 %; Lymphocytes % (auto) 5.7 %; Monocytes % (auto) 7.9 %; Neutrophils # (auto) 7.49 K/uL (1.4-6.5); Neutrophils % (auto) 84.9 %; RBC Morphology Unremarkable
[2022-03-16] MEDS: FLUTICASONE/VILANTEROL 100/25MCG 14 PUFFS/INHALER INH SCH (10:04)
[2022-03-16] MEDS: UMECLIDINIUM BROMIDE 62.5MCG/BLISTER 7 PUFFS/INHALER INH SCH (10:05)
[2022-03-16] MEDS: CHOLECALCIFEROL 5,000 UNITS 125 MCG TAB PO SCH (10:06)
[2022-03-16] MEDS: busPIRone 15 MG TAB PO SCH ×2 (10:06→20:30)
[2022-03-16] MEDS: carBAMazepine 100 MG CHEW TAB PO SCH ×2 (10:06→20:30)
[2022-03-16] MEDS: SODIUM CHLORIDE 1 GM TABLET PO SCH ×2 (10:06→20:31)
[2022-03-16] MEDS: FOLIC ACID 1 MG TAB PO SCH (10:06)
[2022-03-16] MEDS: VENLAFAXINE HCL XR 75 MG CAPXR PO SCH ×3 (10:07→20:30)
[2022-03-16] MEDS: GABAPENTIN 600 MG TAB PO SCH ×4 (10:07→20:31)
[2022-03-16] MEDS ORDERED: SODIUM CHLORIDE 0.9% 250 ML IV PRN (10:19)
[2022-03-16] MEDS: oxyCODONE HCL IR 5 MG TAB (IMMEDIATE RELEASE) PO PRN ×2 (11:16→19:39)
--- NOTE | 2022-03-16 12:30 | Hospitalist Progress Note ---
Date of Service March 16, 2022 Assessment & Plan (1) Urethral trauma: Plan: Overnight of 03/14-03/15, had hematuria and UOP dropped. Attempted to flush without success. CT a/p showed Pool balloon inflated in urethra. - Urology consulted on 03/15. Required cystoscopy with subsequent urethral dilatation and placement of Pool catheter. - Leave Pool in place until at least 03/19/2022. (2) Femur fracture, left: Plan: X-ray on 03/13 showed "comminuted, minimally displaced fracture of the proximal left femur at the greater trochanter." Non-operative per orthopedics. Weight- bearing as tolerated. - Pain control - PT/OT -> Likely rehab. (3) Closed fracture of sacrum: Plan: Non-operative. Weight-bearing as tolerated. - Pain management as above (4) Closed L5 vertebral fracture: Plan: Non-operative. Weight-bearing as tolerated. - Pain management as above (5) Acute hyponatremia: Plan: Hypoosmolar state documented. Fluid restriction underway. Serial labs. Monit or intake and output. Currently on sodium chloride 1 g p.o. twice daily (6) Anemia: Plan: Chronic iron deficiency. Hemoglobin down to 6.5 today. No evidence of GI bleeding. He has agreed to 2 units packed red blood cell transfusion today. We will start parenteral iron replacement tomorrow, March 17 (7) Anxiety: Plan: Anxiety/depression/seizure disorder. Appears to be stable at this point with current medical management. No overt symptoms. Continue buspirone, carbamazepine, and venlafaxine. (8) Chronic pain syndrome: Plan: Received oxycodone 10 mg PO TID chronically from his PCP. Will continue this and add in morphine for severe pain given his acute fractures (9) Rheumatoid arthritis: Plan: On MTX weekly. Continue MTX and folic acid (10) Acid reflux: Plan: Continue pantoprazole (11) Benign prostate hyperplasia: Plan: Continue tamsulosin (12) Chronic obstructive pulmonary disease: Plan: No current exacerbation. CT chest is stable. 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 Continue routine inhalers (13) Cirrhosis, alcoholic: Plan: Appears compensated at this time. Normal LFTs. Monitor (14) Chronic kidney disease, stage III (moderate): Plan: Baseline Cr ~0.9, CKD Stage II-III. Presently at baseline. Monitor intake and output. Serial labs (15) Hypothyroidism: Plan: TSH this admission was 1.7. Continue levothyroxine (16) DVT prophylaxis: Plan: High risk given fractures, cirrhosis. Currently on Lovenox 40 mg SQ daily in AM . Plan Anticipate eventual discharge to SNF Admission and Anticipated Discharge Date Admission Date: March 13, 2022 Subjective Alert. Good spirits. He gives consent for blood transfusion for hemoglobin 6.5. He has known iron deficiency. No overt GI bleeding. We will start IV iron replacement tomorrow, March 17. Serum osmolarity is low which explains his hyponatremia. Fluid restriction has been ordered. He underwent urethral dilatation with Pool catheter placement yesterday, March 15. Urology states the Pool catheter can be removed in 3 to 5 days after that procedure. Orthopedic surgery has seen the patient and deemed his left femur fracture, sacral fracture, L5 fracture nonoperable at this time. He will need SNF placement at the time of discharge, hopefully yet this week. Review of Systems Review of Systems: Constitutional-no fever or chills ENT-no blurred vision, no double vision, no epistaxis, no sore throat Respiratory-no cough, no wheezing, no shortness of breath Cardiac-no palpitations, no chest pain, no syncope GI-no nausea, vomiting, diarrhea, melena, hematochezia -no urinary retention, no urinary incontinence, no dysuria, no hematuria Musculoskeletal-no joint pain, no muscle tenderness Skin-no bruising, no rashes, no pruritus Neuro-no isolated weakness, no paresthesia, no weakness Psych-no depression, no anxiety Physical Exam Physical Exam: General-alert and oriented x3, no fevers, no chills. Appears chronically ill HEENT-head atraumatic and normocephalic, pupils equal and reactive to light, extraocular muscles intact Neck-no lymphadenopathy or thyromegaly, trachea midline Chest-clear to auscultation percussion. No rales wheezing or rhonchi Cardiac-regular rate and rhythm, normal S1 and S2, no murmurs Abdomen-normal bowel sounds, nontender, no hepatosplenomegaly Extremities-no cyanosis, clubbing, or edema Neuro-cranial nerves II through XII intact, motor and sensory function within normal limits, strength symmetrical , no focal deficits Psych-normal affect, normal mood Results & Data Results & Data ([facility]) Vital Signs (Past 12 Hours) Vital Signs Temp Pulse Pulse Resp BP BP Pulse Ox 03/16/22 11:42 36.8 C 90 16 96/47 L 90 03/16/22 11:27 36.8 C 95 H 18 92/44 L 90 03/16/22 11:11 36.9 C 85 18 94/56 L 90 03/16/22 07:00 37 C 91 H 18 93/57 L 96 03/16/22 03:00 36.9 C 81 18 91/38 L 97 O2 Del Method O2 Flow Rate 03/16/22 11:42 03/16/22 11:27 03/16/22 11:11 03/16/22 07:00 Nasal Cannula 2 03/16/22 03:00 Nasal Cannula 2 Laboratory Results 03/16/22 05:50 03/16/22 05:50 PG Care Time/CCT Total # of Minutes Spent Total Time Spent with Patient: Total time spent is greater than 50% in coordination of care (as documented) at patient's floor/unit and/or counseling patient: Coding Level of Care Code 66470 Subseq Hosp Care Lvl 3 Diagnoses Urethral trauma S37.30XA Femur fracture, left S72.92XA Encounter type: initial encounter Femur location: unspecified portion of femur Fracture morphology: unspecified fracture morphology Fracture type: closed Closed fracture of sacrum S32.10XA Encounter type: initial encounter Zone of sacrum fracture: unspecified portion of sacrum Closed L5 vertebral fracture S32.059A Encounter type: initial encounter Fracture morphology: unspecified fracture morphology Acute hyponatremia E87.1 Anemia D64.9 Anxiety F41.9 Chronic pain syndrome G89.4 Rheumatoid arthritis M06.9 Acid reflux K21.9 Benign prostate hyperplasia N40.0 Chronic obstructive pulmonary disease J44.9 Cirrhosis, alcoholic K70.30 Chronic kidney disease, stage III (moderate) N18.3 Hypothyroidism E03.9 DVT prophylaxis Z29.9 (1) Femur fracture, left Encounter type: initial encounter Femur location: unspecified portion of femur Fracture morphology: unspecified fracture morphology Fracture type: closed Qualified Code(s): S72.92XA - Unspecified fracture of left femur, initial encounter for closed fracture (2) Closed fracture of sacrum Encounter type: initial encounter Zone of sacrum fracture: unspecified portion of sacrum Qualified Code(s): S32.10XA - Unspecified fracture of sacrum, initial encounter for closed fracture (3) Closed L5 vertebral fracture Encounter type: initial encounter Fracture morphology: unspecified fracture morphology Qualified Code(s): S32.059A - Unspecified fracture of fifth lumbar vertebra, initial encounter for closed fracture
[2022-03-16] MEDS: MoRPHine SULFATE 4 MG/ML 1 ML CARP\\VIAL IV PRN ×2 (15:09→23:05)
[2022-03-16] MEDS: cefTRIAXone SODIUM 1,000 MG in DEXTROSE 5% 50 ML IV SCH (17:30)
[2022-03-16] MEDS: ACETAMINOPHEN 325 MG TAB PO PRN (19:39)
[2022-03-16] MEDS: PANTOprazole 40 MG TAB PO SCH (20:29)
[2022-03-16] MEDS: TAMSULOSIN HCL 0.4 MG CAP PO SCH (20:29)
[2022-03-16] MEDS: DOCUSATE SODIUM/SENNA 50/8.6MG TAB PO SCH (20:30)
[2022-03-16] MEDS: ROSUVASTATIN CALCIUM 5 MG TAB PO SCH (20:30)
[2022-03-17] MEDS: ACETAMINOPHEN 325 MG TAB PO PRN ×4 (02:53→20:46)
[2022-03-17] MEDS: oxyCODONE HCL IR 5 MG TAB (IMMEDIATE RELEASE) PO PRN ×4 (02:53→20:45)
[2022-03-17] MEDS: LEVOTHYROXINE SODIUM 25 MCG TABLET PO SCH (05:42)
[2022-03-17 07:07] LABS: Basophils # (auto) 0.03 K/uL (0-0.2); Basophils % (auto) 0.5 %; Eosinophils # (auto) 0.26 K/uL (0-0.50); Eosinophils % (auto) 4.2 %; Hematocrit (blood only) 26.3 % (40.1-51.0); Hemoglobin 8.9 g/dl (14.0-18.0); Immature Granulocytes # (auto) 0.01 K/uL (0.00-0.02); Immature Granulocytes % (auto) 0.2 %; Lymphocytes # (auto) 0.69 K/uL (1.2-3.4); Lymphocytes % (auto) 11.1 %; Mean Corpuscular Hemoglobin 33.1 pg (25.0-34.0); Mean Corpuscular Hgb Conc 33.8 g/dL (32.0-36.0); Mean Corpuscular Volume 97.8 fL (80.0-100.0); Mean Platelet Volume 8.3 fL (9.4-12.4); Monocytes # (auto) 0.43 K/uL (0.24-0.82); Monocytes % (auto) 6.9 %; Neutrophils # (auto) 4.79 K/uL (1.4-6.5); Neutrophils % (auto) 77.1 %; Platelet Count 191 K/uL (130-400); RDW Coefficient of Variation 20.5 % (11.5-14.5); RDW Standard Deviation 72.4 fL (36.4-46.3); Red Blood Count 2.69 M/uL (4.63-6.08); White Blood Count 6.21 K/ul (4.8-10.8)
[2022-03-17 07:28] LABS: BUN Creatinine Ratio 13.2 (10-20); Calcium 8.7 mg/dl (8.5-10.1); Creatinine Clr Calc Pharmacy 74.5 ml/min; Est GFR (African American) 105.1 ml/min; Est GFR (Non-African American) 90.6 ml/min; Potassium 4.3 mmol/L (3.5-5.1)
[2022-03-17] MEDS: FOLIC ACID 1 MG TAB PO SCH (08:51)
[2022-03-17] MEDS: VENLAFAXINE HCL XR 75 MG CAPXR PO SCH ×3 (08:51→20:42)
[2022-03-17] MEDS: SODIUM CHLORIDE 1 GM TABLET PO SCH (08:51)
[2022-03-17] MEDS: carBAMazepine 100 MG CHEW TAB PO SCH ×2 (08:51→20:44)
[2022-03-17] MEDS: CHOLECALCIFEROL 5,000 UNITS 125 MCG TAB PO SCH (08:51)
[2022-03-17] MEDS: busPIRone 15 MG TAB PO SCH ×2 (08:51→20:45)
[2022-03-17] MEDS: GABAPENTIN 600 MG TAB PO SCH ×4 (08:51→20:45)
[2022-03-17] MEDS: FLUTICASONE/VILANTEROL 100/25MCG 14 PUFFS/INHALER INH SCH (08:52)
[2022-03-17] MEDS: UMECLIDINIUM BROMIDE 62.5MCG/BLISTER 7 PUFFS/INHALER INH SCH (08:52)
[2022-03-17 09:22] LABS: Acanthocytes 1+
[2022-03-17] MEDS ORDERED: IRON SUCROSE 200 MG in 0.9 % SODIUM CHLORIDE 100 ML IV SCH (10:00)
[2022-03-17] MEDS: MoRPHine SULFATE 4 MG/ML 1 ML CARP\\VIAL IV PRN (10:18)
[2022-03-17] MEDS: MIDODRINE HCL 2.5 MG TAB PO SCH ×3 (12:36→17:07)
--- NOTE | 2022-03-17 14:23 | Hospitalist Progress Note ---
Date of Service March 17, 2022 Assessment & Plan (1) Urethral trauma: Plan: Overnight of 03/14-03/15, had hematuria and UOP dropped. Attempted to flush without success. CT a/p showed Pool balloon inflated in urethra. - Urology consulted on 03/15. Required cystoscopy with subsequent urethral dilatation and placement of Pool catheter. - Leave Pool in place until 03/20/2022. (2) Femur fracture, left: Plan: X-ray on 03/13 showed "comminuted, minimally displaced fracture of the proximal left femur at the greater trochanter." Non-operative per orthopedics. Weight-bearing as tolerated. - Pain control - PT/OT -> Likely rehab. (3) Closed fracture of sacrum: Plan: Non-operative. Weight-bearing as tolerated. - Pain management as above (4) Closed L5 vertebral fracture: Plan: Non-operative. Weight-bearing as tolerated. - Pain management as above (5) Acute hyponatremia: Plan: Hypoosmolar state documented. Fluid restriction underway. Serial labs. Monitor intake and output. Improving. Sodium chloride tablet discontinued (6) Anemia: Plan: Chronic iron deficiency. Hemoglobin improved to 8.9 after 2 units packed red blood cells administered March 17. Will start parenteral iron replacement today, day 1 of 3. No evidence of GI bleeding. (7) Anxiety: Plan: Anxiety/depression/seizure disorder. Appears to be stable at this point with current medical management. No overt symptoms. Continue buspirone, carbamazepine, and venlafaxine. (8) Chronic pain syndrome: Plan: Received oxycodone 10 mg PO TID chronically from his PCP. Will continue this and add in morphine for severe pain given his acute fractures (9) Rheumatoid arthritis: Plan: On MTX weekly. Continue MTX and folic acid (10) Acid reflux: Plan: Continue pantoprazole (11) Benign prostate hyperplasia: Plan: Continue tamsulosin (12) Chronic obstructive pulmonary disease: Plan: No current exacerbation. CT chest is stable. 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 Continue routine inhalers (13) Cirrhosis, alcoholic: Plan: Appears compensated at this time. Normal LFTs. Monitor (14) Chronic kidney disease, stage III (moderate): Plan: Baseline Cr ~0.9, CKD Stage II-III. Presently at baseline. Monitor intake and output. Serial labs (15) Hypothyroidism: Plan: TSH this admission was 1.7. Continue levothyroxine (16) DVT prophylaxis: Plan: High risk given fractures, cirrhosis. Currently on Lovenox 40 mg SQ daily in AM . Plan Anticipate discharge to SNF when arrangements finalized Admission and Anticipated Discharge Date Admission Date: March 13, 2022 Subjective Alert and oriented. No new problems. Hemoglobin improved to 8.9 after 2 units packed red blood cells administered yesterday, March 16. Sodium improved to 132. Fluid restriction liberalized a bit. Start parenteral iron replacement, day 1 of 3. Oral sodium chloride tablets discontinued. Midodrine added for borderline blood pressure which needs supported. Review of Systems Review of Systems: Constitutional-no fever or chills ENT-no blurred vision, no double vision, no epistaxis, no sore throat Respiratory-no cough, no wheezing, no shortness of breath Cardiac-no palpitations, no chest pain, no syncope GI-no nausea, vomiting, diarrhea, melena, hematochezia -no urinary retention, no urinary incontinence, no dysuria, no hematuria Musculoskeletal-no joint pain, no muscle tenderness Skin-no bruising, no rashes, no pruritus Neuro-no isolated weakness, no paresthesia, no weakness Psych-no depression, no anxiety Physical Exam Physical Exam: General-alert and oriented x3, no fevers, no chills. Appears chronically ill HEENT-head atraumatic and normocephalic, pupils equal and reactive to light, extraocular muscles intact Neck-no lymphadenopathy or thyromegaly, trachea midline Chest-clear to auscultation percussion. No rales wheezing or rhonchi Cardiac-regular rate and rhythm, normal S1 and S2, no murmurs Abdomen-normal bowel sounds, nontender, no hepatosplenomegaly Extremities-no cyanosis, clubbing, or edema Neuro-cranial nerves II through XII intact, motor and sensory function within normal limits, strength symmetrical , no focal deficits Psych-normal affect, normal mood Results & Data Results & Data ([facility]) Vital Signs (Past 12 Hours) Vital Signs Temp Pulse Resp BP Pulse Ox O2 Del Method O2 Flow Rate 03/17/22 12:30 36.3 C L 75 14 105/58 L 90 Room Air 03/17/22 07:22 36.2 C L 72 14 88/44 L 93 Room Air 03/17/22 02:56 36.6 C 73 17 95/56 L 97 Nasal Cannula 2 Laboratory Results 03/17/22 06:54 03/17/22 06:54 PG Care Time/CCT Total # of Minutes Spent Total Time Spent with Patient: Total time spent is greater than 50% in coordination of care (as documented) at patient's floor/unit and/or counseling patient: Coding Level of Care Code 25655 Subseq Hosp Care Lvl 3 Diagnoses Urethral trauma S37.30XA Femur fracture, left S72.92XA Encounter type: initial encounter Femur location: unspecified portion of femur Fracture morphology: unspecified fracture morphology Fracture type: closed Closed fracture of sacrum S32.10XA Encounter type: initial encounter Zone of sacrum fracture: unspecified portion of sacrum Closed L5 vertebral fracture S32.059A Encounter type: initial encounter Fracture morphology: unspecified fracture morphology Acute hyponatremia E87.1 Anemia D64.9 Anxiety F41.9 Chronic pain syndrome G89.4 Rheumatoid arthritis M06.9 Acid reflux K21.9 Benign prostate hyperplasia N40.0 Chronic obstructive pulmonary disease J44.9 Cirrhosis, alcoholic K70.30 Chronic kidney disease, stage III (moderate) N18.3 Hypothyroidism E03.9 DVT prophylaxis Z29.9 (1) Femur fracture, left Encounter type: initial encounter Femur location: unspecified portion of femur Fracture morphology: unspecified fracture morphology Fracture type: closed Qualified Code(s): S72.92XA - Unspecified fracture of left femur, initial encounter for closed fracture (2) Closed fracture of sacrum Encounter type: initial encounter Zone of sacrum fracture: unspecified portion of sacrum Qualified Code(s): S32.10XA - Unspecified fracture of sacrum, initial encounter for closed fracture (3) Closed L5 vertebral fracture Encounter type: initial encounter Fracture morphology: unspecified fracture morphology Qualified Code(s): S32.059A - Unspecified fracture of fifth lumbar vertebra, initial encounter for closed fracture
[2022-03-17] MEDS: PANTOprazole 40 MG TAB PO SCH (20:42)
[2022-03-17] MEDS: ROSUVASTATIN CALCIUM 5 MG TAB PO SCH (20:42)
[2022-03-17] MEDS: TAMSULOSIN HCL 0.4 MG CAP PO SCH (20:44)
[2022-03-17] MEDS: DOCUSATE SODIUM/SENNA 50/8.6MG TAB PO SCH (20:45)
[2022-03-18] MEDS: LEVOTHYROXINE SODIUM 25 MCG TABLET PO SCH (06:01)
[2022-03-18 07:57] LABS: Basophils # (auto) 0.05 K/uL (0-0.2); Basophils % (auto) 0.9 %; Eosinophils # (auto) 0.31 K/uL (0-0.50); Eosinophils % (auto) 5.6 %; Hematocrit (blood only) 29.3 % (40.1-51.0); Immature Granulocytes # (auto) 0.02 K/uL (0.00-0.02); Immature Granulocytes % (auto) 0.4 %; Lymphocytes # (auto) 0.54 K/uL (1.2-3.4); Lymphocytes % (auto) 9.8 %; Mean Corpuscular Hemoglobin 33.3 pg (25.0-34.0); Mean Corpuscular Hgb Conc 34.1 g/dL (32.0-36.0); Mean Corpuscular Volume 97.7 fL (80.0-100.0); Mean Platelet Volume 8.4 fL (9.4-12.4); Monocytes # (auto) 0.34 K/uL (0.24-0.82); Monocytes % (auto) 6.2 %; Neutrophils # (auto) 4.23 K/uL (1.4-6.5); Neutrophils % (auto) 77.1 %; Platelet Count 244 K/uL (130-400); RDW Coefficient of Variation 19.9 % (11.5-14.5); White Blood Count 5.49 K/ul (4.8-10.8)
[2022-03-18 08:24] LABS: BUN Creatinine Ratio 13.5 (10-20); Creatinine Clr Calc Pharmacy 64.8 ml/min; Est GFR (African American) 89.4 ml/min; Est GFR (Non-African American) 77.1 ml/min
[2022-03-18] MEDS: carBAMazepine 100 MG CHEW TAB PO SCH ×2 (09:00→20:07)
[2022-03-18] MEDS: GABAPENTIN 600 MG TAB PO SCH ×4 (09:00→20:08)
[2022-03-18] MEDS: FOLIC ACID 1 MG TAB PO SCH (09:01)
[2022-03-18] MEDS: CHOLECALCIFEROL 5,000 UNITS 125 MCG TAB PO SCH (09:01)
[2022-03-18] MEDS: VENLAFAXINE HCL XR 75 MG CAPXR PO SCH ×3 (09:01→20:07)
[2022-03-18] MEDS: busPIRone 15 MG TAB PO SCH ×2 (09:01→20:07)
[2022-03-18] MEDS: FLUTICASONE/VILANTEROL 100/25MCG 14 PUFFS/INHALER INH SCH (09:02)
[2022-03-18] MEDS: UMECLIDINIUM BROMIDE 62.5MCG/BLISTER 7 PUFFS/INHALER INH SCH (09:02)
[2022-03-18] MEDS: MIDODRINE HCL 2.5 MG TAB PO SCH ×3 (09:02→18:10)
[2022-03-18] MEDS: oxyCODONE HCL IR 5 MG TAB (IMMEDIATE RELEASE) PO PRN ×2 (09:16→20:04)
[2022-03-18] MEDS ORDERED: IRON SUCROSE 200 MG in 0.9 % SODIUM CHLORIDE 100 ML IV ONE (09:36)
--- NOTE | 2022-03-18 13:58 | Hospitalist Progress Note ---
Date of Service March 18, 2022 Assessment & Plan (1) Urethral trauma: Plan: Overnight of 03/14-03/15, had hematuria and UOP dropped. Attempted to flush without success. CT a/p showed Pool balloon inflated in urethra. - Urology consulted on 03/15. Required cystoscopy with subsequent urethral dilatation and placement of Pool catheter. - Leave Pool in place until 03/20/2022. (2) Femur fracture, left: Plan: X-ray on 03/13 showed "comminuted, minimally displaced fracture of the proximal left femur at the greater trochanter." Non-operative per orthopedics. Weight-bearing as tolerated. - Pain control - PT/OT -> Likely rehab. (3) Closed fracture of sacrum: Plan: Non-operative. Weight-bearing as tolerated. - Pain management as above (4) Closed L5 vertebral fracture: Plan: Non-operative. Weight-bearing as tolerated. - Pain management as above (5) Acute hyponatremia: Plan: Hypoosmolar state documented. Fluid restriction underway. Serial labs. Monitor intake and output. Improving. Sodium chloride tablet has been discontinued (6) Anemia: Plan: Chronic iron deficiency. Hemoglobin improved to 8.9 after 2 units packed red blood cells administered March 17. Continue parenteral iron replacement today, day 2 of 3. No evidence of GI bleeding. (7) Anxiety: Plan: Anxiety/depression/seizure disorder. Appears to be stable at this point with current medical management. No overt symptoms. Continue buspirone, carbamazepine, and venlafaxine. (8) Chronic pain syndrome: Plan: Received oxycodone 10 mg PO TID chronically from his PCP. Will continue this and add in morphine for severe pain given his acute fractures (9) Rheumatoid arthritis: Plan: On MTX weekly. Continue MTX and folic acid (10) Acid reflux: Plan: Continue pantoprazole (11) Benign prostate hyperplasia: Plan: Continue tamsulosin (12) Chronic obstructive pulmonary disease: Plan: No current exacerbation. CT chest is stable. 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 Continue routine inhalers (13) Cirrhosis, alcoholic: Plan: Appears compensated at this time. Normal LFTs. Monitor (14) Chronic kidney disease, stage III (moderate): Plan: Baseline Cr ~0.9, CKD Stage II-III. Presently at baseline. Monitor intake and output. Serial labs (15) Hypothyroidism: Plan: TSH this admission was 1.7. Continue levothyroxine (16) DVT prophylaxis: Plan: High risk given fractures, cirrhosis. Currently on Lovenox 40 mg SQ daily in AM . Plan Anticipate discharge to SNF when arrangements finalized Admission and Anticipated Discharge Date Admission Date: March 13, 2022 Subjective The patient is somewhat desponded that orthopedic surgery is not planning any surgery. He is not looking forward to spending weeks at an SNF facility. Hemoglobin is improving with iron replacement, currently 10.0. Sodium improved 133. Continue fluid restriction. Blood pressure acceptable on midodrine. Review of Systems Review of Systems: Constitutional-no fever or chills ENT-no blurred vision, no double vision, no epistaxis, no sore throat Respiratory-no cough, no wheezing, no shortness of breath Cardiac-no palpitations, no chest pain, no syncope GI-no nausea, vomiting, diarrhea, melena, hematochezia -no urinary retention, no urinary incontinence, no dysuria, no hematuria Musculoskeletal-no joint pain, no muscle tenderness Skin-no bruising, no rashes, no pruritus Neuro-no isolated weakness, no paresthesia, no weakness Psych-no depression, no anxiety Physical Exam Physical Exam: General-alert and oriented x3, no fevers, no chills. Appears chronically ill HEENT-head atraumatic and normocephalic, pupils equal and reactive to light, e xtraocular muscles intact Neck-no lymphadenopathy or thyromegaly, trachea midline Chest-clear to auscultation percussion. No rales wheezing or rhonchi Cardiac-regular rate and rhythm, normal S1 and S2, no murmurs Abdomen-normal bowel sounds, nontender, no hepatosplenomegaly Extremities-no cyanosis, clubbing, or edema Neuro-cranial nerves II through XII intact, motor and sensory function within no rmal limits, strength symmetrical , no focal deficits Psych-normal affect, normal mood Results & Data Results & Data ([facility]) Vital Signs (Past 12 Hours) Vital Signs Temp Pulse Pulse Resp BP Pulse Ox O2 Del Method 03/18/22 09:00 Room Air 03/18/22 11:00 36.7 C 82 18 108/61 91 Room Air 03/18/22 06:16 69 03/18/22 07:00 36.5 C 68 18 108/64 95 Room Air 03/18/22 02:37 36.6 C 66 16 127/66 97 Laboratory Results 03/18/22 07:47 03/18/22 07:47 PG Care Time/CCT Total # of Minutes Spent Total Time Spent with Patient: Total time spent is greater than 50% in coordination of care (as documented) at patient's floor/unit and/or counseling patient: Coding Level of Care Code 63164 Subseq Hosp Care Lvl 2 Diagnoses Urethral trauma S37.30XA Femur fracture, left S72.92XA Encounter type: initial encounter Femur location: unspecified portion of femur Fracture morphology: unspecified fracture morphology Fracture type: closed Closed fracture of sacrum S32.10XA Encounter type: initial encounter Zone of sacrum fracture: unspecified portion of sacrum Closed L5 vertebral fracture S32.059A Encounter type: initial encounter Fracture morphology: unspecified fracture morphology Acute hyponatremia E87.1 Anemia D64.9 Anxiety F41.9 Chronic pain syndrome G89.4 Rheumatoid arthritis M06.9 Acid reflux K21.9 Benign prostate hyperplasia N40.0 Chronic obstructive pulmonary disease J44.9 Cirrhosis, alcoholic K70.30 Chronic kidney disease, stage III (moderate) N18.3 Hypothyroidism E03.9 DVT prophylaxis Z29.9 (1) Femur fracture, left Encounter type: initial encounter Femur location: unspecified portion of femur Fracture morphology: unspecified fracture morphology Fracture type: closed Qualified Code(s): S72.92XA - Unspecified fracture of left femur, initial encounter for closed fracture (2) Closed fracture of sacrum Encounter type: initial encounter Zone of sacrum fracture: unspecified porti on of sacrum Qualified Code(s): S32.10XA - Unspecified fracture of sacrum, initial encounter for closed fracture (3) Closed L5 vertebral fracture Encounter type: initial encounter Fracture morphology: unspecified fracture m orphology Qualified Code(s): S32.059A - Unspecified fracture of fifth lumbar vertebra, initial encounter for closed fracture
[2022-03-18] MEDS: ACETAMINOPHEN 325 MG TAB PO PRN ×2 (14:07→20:04)
[2022-03-18] MEDS: PANTOprazole 40 MG TAB PO SCH (20:06)
[2022-03-18] MEDS: ROSUVASTATIN CALCIUM 5 MG TAB PO SCH (20:07)
[2022-03-18] MEDS: DOCUSATE SODIUM/SENNA 50/8.6MG TAB PO SCH (20:08)
[2022-03-18] MEDS: TAMSULOSIN HCL 0.4 MG CAP PO SCH (20:08)
[2022-03-19] MEDS: LEVOTHYROXINE SODIUM 25 MCG TABLET PO SCH (06:24)
[2022-03-19 07:20] LABS: Basophils # (auto) 0.04 K/uL (0-0.2); Basophils % (auto) 0.8 %; Eosinophils # (auto) 0.25 K/uL (0-0.50); Eosinophils % (auto) 4.8 %; Hematocrit (blood only) 29.2 % (40.1-51.0); Hemoglobin 9.9 g/dl (14.0-18.0); Immature Granulocytes # (auto) 0.03 K/uL (0.00-0.02); Immature Granulocytes % (auto) 0.6 %; Lymphocytes # (auto) 0.64 K/uL (1.2-3.4); Lymphocytes % (auto) 12.4 %; Mean Corpuscular Hgb Conc 33.9 g/dL (32.0-36.0); Mean Corpuscular Volume 97.3 fL (80.0-100.0); Mean Platelet Volume 8.6 fL (9.4-12.4); Monocytes % (auto) 7.7 %; Neutrophils # (auto) 3.82 K/uL (1.4-6.5); Neutrophils % (auto) 73.7 %; Platelet Count 258 K/uL (130-400); RDW Coefficient of Variation 19.8 % (11.5-14.5); RDW Standard Deviation 69.2 fL (36.4-46.3); White Blood Count 5.18 K/ul (4.8-10.8)
[2022-03-19 07:56] LABS: BUN Creatinine Ratio 17.8 (10-20); Calcium 9.1 mg/dl (8.5-10.1); Creatinine Clr Calc Pharmacy 66.7 ml/min; Est GFR (African American) 92.6 ml/min; Est GFR (Non-African American) 79.9 ml/min
[2022-03-19] MEDS: UMECLIDINIUM BROMIDE 62.5MCG/BLISTER 7 PUFFS/INHALER INH SCH (08:08)
[2022-03-19] MEDS: FLUTICASONE/VILANTEROL 100/25MCG 14 PUFFS/INHALER INH SCH (08:08)
[2022-03-19] MEDS: MIDODRINE HCL 2.5 MG TAB PO SCH ×2 (08:09→11:43)
[2022-03-19] MEDS: GABAPENTIN 600 MG TAB PO SCH ×2 (08:09→11:43)
[2022-03-19] MEDS: busPIRone 15 MG TAB PO SCH (08:09)
[2022-03-19] MEDS: CHOLECALCIFEROL 5,000 UNITS 125 MCG TAB PO SCH (08:10)
[2022-03-19] MEDS: VENLAFAXINE HCL XR 75 MG CAPXR PO SCH ×2 (08:10→11:43)
[2022-03-19] MEDS: FOLIC ACID 1 MG TAB PO SCH (08:10)
[2022-03-19] MEDS: carBAMazepine 100 MG CHEW TAB PO SCH (08:10)
[2022-03-19] MEDS ORDERED: IRON SUCROSE 200 MG in 0.9 % SODIUM CHLORIDE 100 ML IV ONE (09:00)
--- NOTE | 2022-03-19 09:40 | Orthopedic Progress Note ---
Date of Service March 19, 2022 Assessment & Plan (1) Greater trochanter fracture: Plan: Patient will need to follow-up at [facility] orthopedics 2 weeks after discharge from the hospital PT/OT If patient is able to take in physical therapy and is deemed safe to go home, I have no issue with him doing in-home physical therapy, however I feel that he would do better with some rehab at a group home facility or rehab center. He needs to work on quad strengthening Pain can be controlled with p.o. medication DVT prophylaxis per medicine service. Orthopedically I feel that he is stable we will follow-up with him on an outpatient basis (2) Closed fracture of sacrum: (3) Closed L5 vertebral fracture: Admission and Anticipated Discharge Date Admission Date: March 13, 2022 Subjective This 61-year-old male seen this morning for follow-up of left greater trochanter, sacral and L5 vertebral fractures he sustained back on March 13 when he fell from a ladder while attempting to extend his flu pipe for his wood burner. Patient states that most of his pain today is localized in his knee. He has a history of peripheral neuropathy and Charcot disease in his left lower extremity. He states that he does not want to go to a prison and would prefer to do in-home physical therapy like he did previously. However, patient has been unable to partake with physical therapy since his admission. Currently he denies any chest pain, shortness of breath, fever, chills, sweats or numbness or tingling in his left lower extremity is out of the ordinary. He also denies nausea, vomiting or difficulty voiding or moving his bowels. Review of Systems Review of Systems: All systems reviewed & are unremarkable except as noted in Subjective Physical Exam Physical Exam: Physical examination: Left lower extremity; patient has some mild tenderness to palpation over the greater trochanter and right lower sacral area. He has no tenderness over the lower lumbar spine. There is no edema, erythema, ecchymosis, warmth or palpable deformity. He is unable to perform an active straight leg raise test. He has great difficulty performing active dorsi or plantar flexion of his foot with chronic foot drop to the Charcot disease. Passive knee range of motion is from 8 degrees of flexion to approximately 96 degrees of flexion. Patient experiences medial joint line tenderness when he has palpated. Quad strength is 2/5. Patient's calf soft supple nontender to palpation. He has significant quadriceps atrophy noted due to his Charcot disease and neuropathy. Results & Data ([facility]) Vital Signs (Past 12 Hours) Vital Signs Temp Pulse Pulse Resp BP Pulse Ox O2 Del Method 03/19/22 08:00 104 H 03/19/22 06:33 36.7 C 75 18 100/63 96 Room Air 03/19/22 03:19 36.6 C 65 18 120/62 94 Room Air 03/18/22 23:00 72 03/18/22 22:44 36.6 C 62 18 102/58 L 91 Room Air Diagnostic Findings Laboratory Results WBC 5.18 K/ul (4.8-10.8) 03/19/22 07:07 RBC 3.00 M/uL (4.63-6.08) L 03/19/22 07:07 Hgb 9.9 g/dl (14.0-18.0) L 03/19/22 07:07 Hct 29.2 % (40.1-51.0) L 03/19/22 07:07 MCV 97.3 fL (80.0-100.0) 03/19/22 07:07 MCH 33.0 pg (25.0-34.0) 03/19/22 07:07 MCHC 33.9 g/dL (32.0-36.0) 03/19/22 07:07 RDW Std Deviation 69.2 fL (36.4-46.3) H 03/19/22 07:07 RDW Coeff of Alix 19.8 % (11.5-14.5) H 03/19/22 07:07 Plt Count 258 K/uL (130-400) 03/19/22 07:07 MPV 8.6 fL (9.4-12.4) L 03/19/22 07:07 Immature Gran % (Auto) 0.6 % 03/19/22 07:07 Neut % (Auto) 73.7 % 03/19/22 07:07 Lymph % (Auto) 12.4 % 03/19/22 07:07 [place] % (Auto) 7.7 % 03/19/22 07:07 Eos % (Auto) 4.8 % 03/19/22 07:07 Baso % (Auto) 0.8 % 03/19/22 07:07 Neut # (Auto) 3.82 K/uL (1.4-6.5) 03/19/22 07:07 Lymph # (Auto) 0.64 K/uL (1.2-3.4) L 03/19/22 07:07 [place] # (Auto) 0.40 K/uL (0.24-0.82) 03/19/22 07:07 Eos # (Auto) 0.25 K/uL (0-0.50) 03/19/22 07:07 Baso # (Auto) 0.04 K/uL (0-0.2) 03/19/22 07:07 Immature Gran # (Auto) 0.03 K/uL (0.00-0.02) H 03/19/22 07:07 RBC Morphology Unremarkable 03/16/22 05:50 Polychromasia 1+ 03/15/22 07:12 Anisocytosis Present 03/15/22 07:12 Stomatocytes 1+ 03/14/22 05:17 Acanthocytes (Spur) 1+ 03/17/22 06:54 PT 11.2 Seconds (9.0-12.0) 03/13/22 18:25 INR 1.1 (0.9-1.1) 03/13/22 18:25 APTT 32.1 Seconds (21.0-31.0) H 03/13/22 18:25 PTT Ratio 1.2 03/13/22 18:25 Sodium 132 mmol/L (136-145) L 03/19/22 07:07 Potassium 4.0 mmol/L (3.5-5.1) 03/19/22 07:07 Chloride 98 mmol/L (98-107) 03/19/22 07:07 Carbon Dioxide 28 mmol/L (21-32) 03/19/22 07:07 Anion Gap 6 (3-11) 03/19/22 07:07 BUN 18 mg/dl (6-23) 03/19/22 07:07 Creatinine 1.01 mg/dl (0.6-1.4) 03/19/22 07:07 Est Cr Clr Drug Dosing 66.7 ml/min 03/19/22 07:07 Est GFR ( Amer) 92.6 ml/min 03/19/22 07:07 Est GFR (Non-Af Amer) 79.9 ml/min 03/19/22 07:07 BUN/Creatinine Ratio 17.8 (10-20) 03/19/22 07:07 Glucose 81 mg/dl (70-99(Fasting)) 03/19/22 07:07 POC Glucose 126 mg/dl (70-99) H 03/17/22 16:12 Osmolality 269 mOsm/kg (280-300) L 03/16/22 09:08 Calcium 9.1 mg/dl (8.5-10.1) 03/19/22 07:07 Phosphorus 4.0 mg/dl (2.5-4.9) 03/14/22 05:17 Magnesium 1.8 mg/dl (1.7-2.4) 03/16/22 05:50 Iron 28 mcg/dl (35-175) L 03/15/22 07:12 Unsaturated IBC 333 mcg/dl (155-355) 03/15/22 07:12 Transferrin 278 mg/dl (200-360) 03/15/22 07:12 Ferritin 62.8 ng/ml (8-388) 03/15/22 07:12 Total Bilirubin 0.4 mg/dl (0.2-1.0) 03/15/22 07:12 AST 17 U/L (13-39) 03/15/22 07:12 ALT 8 U/L (7-52) 03/15/22 07:12 Alkaline Phosphatase 131 U/L (34-104) H 03/15/22 07:12 Total Protein 7.5 gm/dl (6.0-8.3) 03/15/22 07:12 Albumin 3.6 gm/dl (3.4-5.0) 03/15/22 07:12 Globulin 3.9 gm/dl (2.5-4.0) 03/15/22 07:12 Albumin/Globulin Ratio 0.9 (0.9-2) 03/15/22 07:12 Vitamin B12 578 pg/ml (180-914) 03/15/22 07:12 Folate 8.27 ng/ml (>5.38) 03/15/22 07:12 TSH 1.713 uIu/ml (0.300-4.500) 03/15/22 07:12 Urine Osmolality 227 mOsm/kg (500-800) L 03/13/22 19:40 Ethyl Alcohol mg/dL < 10.0 mg/dl (<10.0) 03/14/22 05:17 SARS-CoV-2, RNA, NAAT NEGATIVE (NEGATIVE) 03/13/22 23:05 Blood Type O Negative 03/14/22 02:03 Antibody Screen NEGATIVE 03/14/22 02:03 Crossmatch See Detail 03/14/22 02:[address] 03/13/22 18:42 CT cervical spine wo con CLINICAL HISTORY: fall TECHNIQUE: Multidetector row helical CT of the cervical spine was performed without administration of intravenous contrast. Coronal and sagittal reformations were obtained. Automated dose lowering techniques and/or adjustment according to patient size were utilized for this exam. Comparison: None available at the time of this dictation. FINDINGS: No acute fractures or subluxations are identified. Degenerative changes are seen in the visualized spine. Grade 1 anterolisthesis is seen at C3-C4. 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 Emphysema is seen. IMPRESSION: Degenerative changes without evidence of acute bony injury. ACT 112: Negative or not required by law. Electronically signed by: Emre Medeiros M.D. 03/13/2022 8:49 PM Chest X-Ray 03/13/22 18:42 XR chest 1V portable CLINICAL HISTORY: fall TECHNIQUE: Single frontal radiograph of the chest was obtained. Comparison: Comparison is made to chest radiograph 10/20/2021 FINDINGS: No lines and tubes are seen. The cardiomediastinal silhouette is normal. Severe emphysematous changes are seen. Linear densities in the right midlung are unchanged. Scarring is noted in the left upper lobe and there is a large bleb in the left apex. No evidence of pleural effusion or pneumothorax. Healed rib fractures are seen. IMPRESSION: 1. Redemonstration of emphysematous and scarring changes. ACT 112: Negative or not required by law. Electronically signed by: Emre Medeiros M.D. 03/13/2022 7:16 PM Elbow X-Ray 03/13/22 18:42 XR elbow LT min 3V routine CLINICAL HISTORY: fall TECHNIQUE: 3 views of the left elbow were obtained. Comparison: None available at the time of this dictation. FINDINGS: There is no evidence of an acute fracture. Joint spaces are well-preserved. There is no prominence of the anterior or posterior fat pads to suggest an effusion. No soft tissue abnormality is seen. IMPRESSION: No evidence of acute osseous injury. ACT 112: Negative or not required by law. Electronically signed by: Emre Medeiros M.D. 03/13/2022 7:[address] 03/13/22 18:42 CT head/brain wo con CLINICAL HISTORY: fall Technique: Contiguous axial CT images of the head were acquired from the base of the skull to the vertex without intravenous contrast administration. Images were viewed in brain, subdural and bone windows. Automated dose lowering techniques and/or adjustment according to patient size were utilized for this exam. Comparison: None available at the time of this dictation. Findings: Areas of decreased attenuation are present in the periventricular and subcortical white matter bilaterally consistent with small vessel ischemic disease. Generalized cerebral atrophy with commensurate enlargement of the ventricles, sulci, and cisterns is also present. There is no acute intracranial hemorrhage or evidence of acute territorial infarction. No shift of the midline structures, mass effect, or extra-axial abnormalities are shown. Atherosclerotic calcifications are present in the intracranial segments of the internal carotid arteries. Encephalomalacia is in the right frontal lobe. Imaged portions of the paranasal sinuses and mastoid air cells are clear. The orbits appear normal. There are no acute fractures of the calvaria or scalp swelling. Impression: No acute intracranial hemorrhage, no evidence of acute territorial infarction or other acute intracranial disease process. ACT 112: Negative or not required by law. Electronically signed by: Emre Medeiros M.D. 03/13/2022 8:46 PM Pelvis X-Ray 03/13/22 18:43 XR pelvis 1-2V routine, XR femur LT 2V routine CLINICAL HISTORY: fall TECHNIQUE: A single frontal view of the pelvis was obtained. Views of the left femur were obtained. Comparison: Comparison is made to pelvic radiograph 12/10/2021 FINDINGS: Bilateral total hip arthroplasties are seen. There is an acute fracture in the proximal left femur which is minimally displaced and seen on the femur radiographs only. Degenerative changes are seen in the hip joints and lumbar spine. Soft tissue swelling is seen. IMPRESSION: There is a comminuted, minimally displaced fracture of the proximal left femur at the greater trochanter. Bilateral total hip arthroplasties are seen. ACT 112: Negative or not required by law. Electronically signed by: Emre Medeiros M.D. 03/13/2022 7:12 PM Femur X-Ray 03/13/22 18:44 XR pelvis 1-2V routine, XR femur LT 2V routine CLINICAL HISTORY: fall TECHNIQUE: A single frontal view of the pelvis was obtained. Views of the left femur were obtained. Comparison: Comparison is made to pelvic radiograph 12/10/2021 FINDINGS: Bilateral total hip arthroplasties are seen. There is an acute fracture in the proximal left femur which is minimally displaced and seen on the femur radiographs only. Degenerative changes are seen in the hip joints and lumbar spine. Soft tissue swelling is seen. IMPRESSION: There is a comminuted, minimally displaced fracture of the proximal left femur at the greater trochanter. Bilateral total hip arthroplasties are seen. ACT 112: Negative or not required by law. Electronically signed by: Emre Medeiros M.D. 03/13/2022 7:[address] 03/13/22 20:22 CT chest diagnostic w con CLINICAL HISTORY: fall TECHNIQUE: Multidetector row helical CT of the chest was performed with intravenous contrast. Coronal and sagittal reformations were obtained. Automated dose lowering techniques and/or adjustment according to patient size were utilized for this exam. CT DOSE: 538.05 mGy.cm Comparison: None available at the time of this dictation. FINDINGS: Lungs and pleura: Paraseptal emphysema and interstitial thickening is seen. Stable 10 mm nodule in the right upper lobe (image 112 of series 6). Redemonstr ation of left pleural gas. Heart and pericardium: Heart size is normal. No pericardial effusion. Vessels: Unremarkable. Mediastinum and guerrero: Subcentimeter lymph nodes are seen. Chest wall and lower neck: Gynecomastia is noted bilaterally. Abdomen: For findings below the diaphragm, please refer to CT of the abdomen dated the same. Bones: Degenerative changes in the thoracic spine. Old healed fractures are seen in the anterolateral aspect of the right fourth, fifth, and sixth ribs. Healing fractures are seen in the left anterior fourth and fifth ribs. Degenerative changes are seen in the left shoulder joint. IMPRESSION: 1. Healing fractures are seen in the bilateral anterolateral ribs. No evidence of acute fracture is seen. 2. Severe emphysema and scarring. 3. Redemonstration of left pleural gas which may possibly represent bronchopleural fistula. ACT 112: Negative or not required by law. Electronically signed by: Emre Medeiros M.D. 03/13/2022 8:57 PM Abdomen/Pelvis CT 03/15/22 04:[address] WITHOUT CONTRAST CT DOSE: 278.29 mGy.cm HISTORY: Acute pelvic pain with Esqueda catheter placement check esqueda position. obstruction and clots TECHNIQUE: Multiaxial CT images of the abdomen and pelvis were performed without contrast. A dose lowering technique was utilized adhering to the principles of ALARA. COMPARISON STUDY: CT abdomen and pelvis 03/13/2022, pelvis radiographs 12/10/2021 FINDINGS: Emphysema with bronchitis and bibasilar mucous plugging. Tree-in-bud nodules in the right greater than left lung bases with subsegmental bibasilar atelectasis. No pneumatosis or pneumoperitoneum. The imaged inferior cardiac chambers are unremarkable. The unenhanced spleen measures within the upper limits of normal in size. The pancreas and adrenal glands are unremarkable. Hyperdense material within the gallbladder is suggestive of vicarious excretion of contrast. The unenhanced liver is within normal limits. Nonspecific bilateral perinephric stranding. There is residual contrast in the bilateral renal collecting systems and ureters. 2.2 cm right renal cyst. No hydronephrosis. Distended contrast-filled urinary bladder measures up to approximately 16 cm. Air is noted within the nondependent urinary bladder lumen. The pelvic structures are suboptimally dilated secondary to streak artifact from the bilateral hip total joint arthroplasties. The Esqueda balloon catheter is inflated within the urethra, possibly the membranous portion. Deep tissue air is noted along the posterior margins of the balloon extending into the perineum. Atherosclerosis of the aorta. There is no lymphadenopathy identified. No bowel obstruction or bowel wall thickening. Colonic diverticulosis. Moderate colonic fecal retention with mild gaseous distention of the large bowel. Noninflamed appendix. Mild generalized body wall edema. Degenerative changes of the spine. Healed chronic rib fractures. Acute to subacute appearing right greater left bilateral sacral alar fractures with fracture extension into the mid to inferior sacrum. There is a few millimeters of displacement involving the mid sacrum. Acute nondisplaced fracture of the right L5 transverse process. Bilateral hip total joint arthroplasties. Transitional lumbosacral anatomy. IMPRESSION: 1. Malpositioned Esqueda catheter with the balloon inflated within the urethra, possibly the membranous portion. Deep tissue air within the perineum and ischiorectal anal fossa is likely on a posttraumatic basis. 2. Distended air and contrast filled urinary bladder. 3. Acute to subacute appearing fractures of the sacrum and right L5 transverse process appear unchanged from the 03/13/2022 exam. 4. Emphysema with bronchitis and bibasilar infectious or inflammatory bronchiolitis. Correlate clinically to exclude aspiration. 5. No bowel obstruction or bowel wall thickening. 6. Additional findings as above. ACT 112: Negative or not required by law. The above report was generated using voice recognition software. It may contain grammatical, syntax or spelling errors. Electronically signed by: Anders Rangel M.D. 03/15/2022 8:45 AM Abdomen Ultrasound 03/15/22 16:37 US abdomen limited CLINICAL HISTORY: Review bladder to ensure compressed around Esqueda. TECHNIQUE: Multiple real-time sonographic images of the bladder were obtained. Comparison: Comparison is made to CT abdomen pelvis 03/15/2022 FINDINGS: A Esqueda catheter is seen within the bladder. The bladder wall appears thickened measuring 8 mm in diameter. IMPRESSION: Underdistended bladder drained by Esqueda catheter. Wall thickening is seen which may reflect chronic obstruction in this patient with prostatomegaly. Correlation with urinalysis is recommended to exclude UTI. ACT 112: Negative or not required by law. Electronically signed by: Emre Medeiros M.D. 03/15/2022 5:27 PM (1) Closed L5 vertebral fracture Encounter type: initial encounter Fracture morphology: unspecified fracture morphology Qualified Code(s): S32.059A - Unspecified fracture of fifth lumbar vertebra, initial encounter for closed fracture (2) Closed fracture of sacrum Encounter type: initial encounter Zone of sacrum fracture: unspecified portion of sacrum Qualified Code(s): S32.10XA - Unspecified fracture of sacrum, initial encounter for closed fracture
--- NOTE | 2022-03-19 10:48 | Discharge Summary ---
Date of Service March 19, 2022 Admission HPI Per Admitting Provider The patient is a 61-year-old male with a past medical history including B12 deficiency, anemia, osteonecrosis of left ankle and foot, insomnia, lumbar degenerative disc disease, hand dermatitis, vitamin D deficiency, left shoulder osteoarthritis and rotator cuff arthropathy, idiopathic polyneuropathy, lumbar radiculopathy, PAD, RA, GERD, anxiety, BPH, Charcot joint, CKD stage III, COPD, alcoholic cirrhosis, depression, hypothyroidism, diabetes mellitus type 2, alcoholic neuropathy and chronic respiratory failure with hypoxia. Patient reports falling off a ladder as noted above. Radiology studies in ED revealed the following: CT head negative, CT cervical spine negative, left elbow showed no fractures, chest x-ray showed emphysema and scarring, and CT scan of abdomen and pelvis showed a proximal comminuted left femur greater trochanter fracture, fracture of the right sacrum and right L5 transverse process fracture, CT scan of chest showed right 4 through 6 and left 4 through 5 healing rib fractures Principal Diagnosis Left femur fracture, sacral fracture, pelvic fracture, hyperosmolar hyponatremia, transient hypotension Discharge Exam General-alert and oriented x3, no fevers, no chills. Appears chronically ill HEENT-head atraumatic and normocephalic, pupils equal and reactive to light, extraocular muscles intact Neck-no lymphadenopathy or thyromegaly, trachea midline Chest-clear to auscultation percussion. No rales wheezing or rhonchi Cardiac-regular rate and rhythm, normal S1 and S2, no murmurs Abdomen-normal bowel sounds, nontender, no hepatosplenomegaly Extremities-no cyanosis, clubbing, or edema Neuro-cranial nerves II through XII intact, motor and sensory function within normal limits, strength symmetrical , no focal deficits Psych-normal affect, normal mood Discharge Data Allergies Allergy/AdvReac Type Severity Reaction Status Date / Time pregabalin Allergy Severe ANAPHYLAXIS Verified 03/13/22 22:42 Consultations 03/13/22 21:29 Consult Orthopedic Surgery Routine 03/13/22 21:30 ED Decision to Admit Stat 03/15/22 07:00 Consult Urology Routine Ordered Studies 03/13/22 18:42 CT abd pelvis IV con only Stat CT cervical spine wo con Stat CT head/brain wo con Stat 03/13/22 20:22 CT chest diagnostic w con Stat 03/15/22 04:07 CT abd pelvis wo con Urgent 03/15/22 16:37 US abdomen limited Urgent Hospital Course (1) Urethral trauma: The patient underwent urethral dilatation with Pool catheter placement per urology. We will remove Pool catheter today and assess ability to urinate. (2) Femur fracture, left: Nonoperative management per orthopedics (3) Closed fracture of sacrum: Nonoperative management per orthopedics (4) Closed L5 vertebral fracture: Nonoperative management per orthopedics (5) Acute hyponatremia: Hyperosmolar state associated with hyponatremia. Much improved with fluid restriction. (6) Anemia: He received 2 units of packed red blood cells this admission. Much improved. Known iron deficiency. He will receive day 3 of parenteral iron replacement today. (7) Anxiety: Stable with current medical manage (8) Chronic pain syndrome: Stable with current medical (9) Rheumatoid arthritis: Stable with current methotrexate prescription (10) Acid reflux: Stable with PPI therapy (11) Benign prostate hyperplasia: Hopefully he will be able to urinate once the Pool catheter has been removed. If not, Pool catheter will be replaced (12) Chronic obstructive pulmonary disease: Stable. Continue current medical management (13) Cirrhosis, alcoholic: Alcohol cessation recommended (14) Chronic kidney disease, stage III (moderate): Stable. Monitor intake and output. Serial labs (15) Hypothyroidism: thyroid replacement therapy (16) DVT prophylaxis: Lovenox subcu or heparin subcu Plan The patient has opted for discharge to home with home health services today, March 19 Total Time Total Time Spent Total Time Spent (In Minutes): 35 minutes Discharge Plan Discharge Items Patient Disposition: Home - Home Health Services Reason For Visit: s/p FALL OFF A LADDER, HYPONATREMIA, VERTIGO Discharge Diagnosis: Nonoperative fractures of the left femur/sacrum/pelvis, hypoosmolar hyponatremia, systemic hypotension Activity Comment: Activity as outlined per orthopedics Non-emergency contact: Primary Care Provider Call non-emergency contact if: you have any medication questions and your symptoms worsen Follow-up/Referrals: Michelle Campos DO [Primary Care Provider] - Be Iverson MD [Physician] - 03/27/22 10:30 am Diet: Heart Healthy Addtl Attending Provider Instructions: Home physical therapy will continue. Follow-up with orthopedics as an outpatient. Midodrine is a new medication for blood pressure support Addtl Him Coder Provider Instructions: Orthopedic Discharge Instructions: Weight bearing as tolerated Walker to assist in ambulation Recommend nutritional supplement and DVT prophylaxis Recommend continued rehab with PT/OT Follow up with Dr Iverson in 2 weeks from discharge at [facility] - Scheduled for 03/27 @ 10:30 Please call our office at [phone] with any questions or concerns Pending Studies at Discharge: No Stand-Alone Forms: My [facility] [employer], Smoking Cessation Medications and DC Order Prescriptions: New midodrine 2.5 mg Tablet 5 mg PO TID@0800,1200,1700 Qty: 60 0RF Continued gabapentin 100 mg capsule 100 mg PO QID Qty: 360 1RF Rx Instructions: TOTAL DOSE 700 MG--TAKES WITH 600 MG TAB. pantoprazole 40 mg tablet,delayed release (DR/EC) 40 mg PO QPM Qty: 90 1RF sennosides 8.6 mg tablet 8.6 mg PO BID Qty: 60 5RF methotrexate sodium 2.5 mg tablet 15 mg PO WK 30 Days Qty: 180 1RF Rx Instructions: TAKES ON WEDNESDAYS. tamsulosin 0.4 mg capsule 0.4 mg PO PM Qty: 90 1RF venlafaxine 75 mg capsule,extended release 24hr 75 mg PO TID Qty: 90 1RF gabapentin 600 mg tablet 600 mg PO QID Qty: 120 5RF Rx Instructions: TOTAL DOSE 700 MG--TAKES WITH 100 MG TAB. ipratropium-albuterol 0.5 mg-3 mg(2.5 mg base)/3 mL solution for nebulization 3 ml inhalation Q6H PRN (Reason: Shortness Of Breath Or Wheezing J44.9;j44.1) Qty: 3 5RF oxycodone 10 mg tablet 10 mg PO TID PRN (Reason: pain) Qty: 90 0RF Breo Ellipta 100-25 mcg/dose blister with device 1 inh INHALATION QAM Qty: 60 5RF buspirone 15 mg tablet See Rx Instructions .ROUTE .COMPLEX Qty: 90 5RF Rx Instructions: Take 1 tab PO in morning and in the afternoon, 1.5 tabs PO evening; rosuvastatin [Crestor] 5 mg tablet 5 mg PO PM Qty: 90 3RF docusate sodium 100 mg capsule 100 mg PO BID Qty: 180 3RF levothyroxine 25 mcg tablet 25 mcg PO DAILYBB carbamazepine 100 mg tablet,chewable 100 mg PO BID aspirin 81 mg tablet,delayed release (DR/EC) 81 mg PO QAM folic acid 1 mg tablet 1 mg PO QAM cholecalciferol (vitamin D3) 125 mcg (5,000 unit) tablet 5,000 unit PO QAM Discharge Orders: Discharge Order (Routine); Ordered 03/19/22 Ordered By: Mikhail Person Admission Data Admit Date/Time: 03/13/22 22:31 Attending Provider: Mikhail Person Admit Provider: Derrell Perez Primary Care Provider: Michelle Campos Other Providers: Danilo Mauro ; Toño Wasserman ; Guillermo Bailey ; Enedelia Phillips ; Lily Guzman ; Esdras Ty ; Gray Solis ; Be Lynne ; Be Iverson ; Kaye Curiel ; Jennifer Johnston ; Susie Lilly ; Joie Franco ; Jami Dong ; Judie Jacobsen ; Jose Simons ; David Woodson ; Derrell Perez ; Shaan Meadows Coding Level of Care Code D/C DAY MANAGEMENT >30 MINS Diagnoses Urethral trauma S37.30XA Femur fracture, left S72.92XA Encounter type: initial encounter Femur location: unspecified portion of femur Fracture morphology: unspecified fracture morphology Fracture type: closed Closed fracture of sacrum S32.10XA Encounter type: initial encounter Zone of sacrum fracture: unspecified portion of sacrum Closed L5 vertebral fracture S32.059A Encounter type: initial encounter Fracture morphology: unspecified fracture morphology Acute hyponatremia E87.1 Anemia D64.9 Anxiety F41.9 Chronic pain syndrome G89.4 Rheumatoid arthritis M06.9 Acid reflux K21.9 Benign prostate hyperplasia N40.0 Chronic obstructive pulmonary disease J44.9 Cirrhosis, alcoholic K70.30 Chronic kidney disease, stage III (moderate) N18.3 Hypothyroidism E03.9 DVT prophylaxis Z29.9
--- NOTE | 2022-04-02 06:32 | Coding Query ---
CODING QUERY To promote full compliance with coding requirements relating to patient care, provider participation is requested in all cases of death surveys coder uncertainty. Please assist us with the question(s) below: Coding Question(s): 03/18/22 PROGRESS NOTE: (12) Chronic obstructive pulmonary disease: Plan: No current exacerbation. CT chest is stable. 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 Continue routine inhalers Please indicate below the clinical significance of the possible bronchopleural fistula to this case. 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 and this [facility] should be coded ( ) Bronchopleural fistula is NOT clinically significant and this [facility] should not be coded ( ) Other, please specify Thank you Yolis Kapoor Principal Diagnosis: "that condition established after study, to be chiefly responsible for occasioning the admission of the patient to the hospital for care." Co-Existing Principal Diagnosis: "when two or more diagnoses equally meet the criteria for principal diagnosis as determined by the circumstances of admission, diagnostic work up, and/or therapy provided, and the Alphabetic Index, Tabular List, or another coding guideline does not provide sequencing direction, any one of the diagnoses may be sequenced first." "When the physician has documented what appears to be a current diagnosis in the body of the record, but has not included the diagnosis in the final diagnostic statement, the physician should be asked whether the diagnosis should be added." (Source [facility]oding [facility] 2 QTR90. p3-4) [facility]
== END 2022-03-19 15:17 | disposition home or self-care (01) | DRG 963 ==
LOC: ED 18:03 → 2S 22:31 → SUATTDRO 22:31 → 2S 03-14 01:07

== ENCOUNTER 2022-08-10 15:38 | Inpatient (IN) ==
[2022-08-10] MEDS ORDERED: CEFEPIME 2,000 MG/20 ML VIAL IV STA (15:49)
[2022-08-10] MEDS ORDERED: SODIUM CHLORIDE 0.9% 1000ML 1,000 ML IV ONE (15:49)
[2022-08-10] MEDS ORDERED: ALBUT/IPRATROP 3MG/0.5MG NEB 3 ML VIAL NEB ONE (15:49)
[2022-08-10] MEDS ORDERED: methylPREDNISolone 125 MG/2 ML VIAL IV STA (15:51)
[2022-08-10] MEDS ORDERED: ALBUT/IPRATROP 3MG/0.5MG NEB 3 ML VIAL ONE (15:51)
--- NOTE | 2022-08-10 15:54 | Emergency Department Note ---
Impression & Plan Sepsis, Acute hypotension, Hypoxia, Pneumonia ED Provider Note NAME: JEANNETTE WU AGE: 61 SEX: M : 1960 ARRIVES VIA: Ambulance INFORMANT: Patient ED PROVIDER(S): Bhargav Martinez DO CHIEF COMPLAINT: Hypoxic HPI: Patient is a 61-year-old with a past medical history hyponatremia, anemia, alcohol abuse, neuropathy who presents the ER who was found to be very weak and could not get himself to the bathroom. EMS presented and found him to be hypotensive and hypoxic. He was placed on nonrebreather. Does have a history of COPD. He denies any headache or change in vision. No chest pain but does admit to worsening cough and shortness of breath. Weakness has been there for 1 to 2 days. Denies any belly pain, dysuria, urgency, or frequency. No other exacerbating or remitting factors. PAST MEDICAL HISTORY:See Below PAST SURGICAL HISTORY:See Below FAMILY HISTORY:See Below SOCIAL HISTORY:See Below HOME MEDICATIONS:See Below ALLERGIES:See Below VITALS:See Below PHYSICAL EXAMINATION: GENERAL: Sitting up in bed, alert, ill-appearing, disheveled, on nonrebreather, ill-appearing EYE EXAM: normal conjunctiva. OROPHARYNX: mucous membranes are dry NECK: supple, no nuchal rigidity, no adenopathy, non-tender LUNGS: Diffuse wheezing throughout. Normal chest wall mechanics HEART: no murmurs, S1 normal and S2 normal ABDOMEN: abdomen soft, non-tender, normo-active bowel sounds, no masses, no rebound or guarding. UPPER EXTREMITIES: upper extremities are grossly normal. LOWER EXTREMITIES: No pitting edema. NEURO EXAM: Normal sensorium, cranial nerves II-XII grossly intact, normal speec h, no gross weakness of arms, no gross weakness of legs. MEDICAL DECISION MAKING: Patient is a 61-year-old male who presents ER with above-stated complaint. External records were reviewed. He was found to be hypoxic and was placed on a nonrebreather at 15 L and remained on a nonrebreather. He dropped into the upper 70s when off of this. He was hypotensive with systolic pressures in the 70s. Heart rate was elevated in the 120s. Labs show leukocytosis of 15,000. Mild anemia at 8.3 which actually improved from previous. VBG with a pH of 7.24 and a CO2 of 64. BMP with a mild hyperkalemia at 5.6. Creatinine was elevated at 2.20 from baseline of 1. Troponin slightly elevated at 24. Procalcitonin was elevated at 35. UA was clean. Viral panel/respiratory panel was clean. Chest x-ray shows worsening progression of the infiltrates per my read. CT maritza o of the chest was performed and showed chronic PEs and worsening pneumonia. CT abdomen pelvis was unremarkable. CT head was negative. Patient was given IV cefepime and vancomycin as well as 1.5 L of IV fluids while in the ER. Prior to arrival he received an additional 1.5 L of IV fluids. In total with EMS and the ER he received 3 L. Systolic pressures did improve to the low 100s. Patient w as updated bedside. Discussed with Dr. Russell Dimas for further evaluation management and treatment. He was also given hour-long neb treatment combination with steroids with history of COPD. Respiratory rate did improve. Triage Nursing notes reviewed. Limited review of prior medical records performed Vital Signs: reviewed and remarkable for hypoxia, hypotension and tachycardic Differential diagnosis: Infection, dehydration, metabolic abnormality, hypo/hyperglycemia, electrolyte disturbance, anemia, hypoxia, cardiac sources, intracerebral event, toxicologic, neurologic, as well as other pathologies. ER treatment provided: See below Diagnostics interpreted by me include EKG and cardiac monitoring as listed below: -Cardiac Monitoring: An order was placed for continuous cardiac monitoring. The monitor shows a rate of 115 with sinus rhythm. -ECG: EKG 1 Sinus tachycardia rate of 104 Poor baseline T wave inversion in the septal leads QTc 491 EKG #2 Sinus tachycardia rate of 101 Normal axis Poor baseline T wave inversion in the septal leads QTc 456 -Laboratory studies:Interpreted by me as stated above in MDM and shown below. Imaging studies: Xrays: As interpreted by me: Chest x-ray with worth sending bilateral infiltrates per my read CTs show: CT angio of the chest shows multifocal pneumonia/infiltrates with a CT abdomen pelvis being unremarkable and CT head negative Consultation(s): Discussed with Dr. Russell Dimas for further evaluation management Procedures:none Critical Care: I have personally spent 35 minutes of critical care time in the direct management of this patient. This includes bedside care, interpretation of diagnostic studies, and testing, discussion with consultants, patient, and family members, and other required patient management activities. This 35 minutes is in excess of all separately billable procedures. Past Med/Surg History Medical History (Updated 08/10/22 @ 21:25 by Bhargav Martinez DO) Acid reflux Stable and controlled per patient Anemia Anxiety B12 deficiency Benign prostate hyperplasia Charcot's joint of foot, non-diabetic Chronic kidney disease, stage III (moderate) Chronic obstructive pulmonary disease Chronic pain syndrome Multifactorial in nature- LDD, neuropathy, OA, RA Cirrhosis, alcoholic HX OF (LAST ETOH 10 YEARS AGO) Follows with GI routinely Depression Flexion deformity of hand Unable to fully extend 4th and 5th digits of left hand History of stroke 2011 - NO PHYSICAL RESIDUAL EFFECTS, MEMORY PROBLEM FOLLOWING - HAS RECOVERED SOME BUT NOT ENTIRELY Hypothyroidism Hypoxemic respiratory failure, chronic resolved per pt Lumbar disc herniation with radiculopathy Lung cancer MRSA pneumonia Neuropathy, alcoholic Fair control On gabapentin On home oxygen therapy 2L n/c at HS and prn Peripheral arterial disease Stable per 03/2021 PCP note- no significant blockage with LE angiogram in 12/2020 Portal hypertension Primary osteoarthritis, left shoulder Rheumatoid arthritis Follows with rheum - [facility] Rotator cuff arthropathy of left shoulder T2DM (type 2 diabetes mellitus) NIDDM > diet controlled Glucose stable Surgical History H/O hand surgery (02/07/21) R index, middle, ring and small finger MCP joint silicone implant arthroplasties w/ extensor tendon centralization H/O oral surgery ALL TEETH OUT History of bronchoscopy (~09/2021) History of esophagogastroduodenoscopy (EGD) Hx of surgical procedure (12/2020) Angio Extremity > bilat legs Hx of umbilical hernia repair 11/14/12 S/P epidural steroid injection S/P total hip arthroplasty Status post left hip replacement (01/2018) Status post right hip replacement (10/2018) Status post-operative repair of closed fracture of left hip (2012) IM nail placement L hip Family History Father Family history of cardiac pacemaker Coronary heart disease Aneurysm Cardiac pacemaker Hx of CABG Mother Family history of cardiac pacemaker Diabetes Cardiac pacemaker Hypertension Brother Diabetes Other Family history non-contributory No family history of adverse response to anesthesia Denies family history of Colon cancer Ovarian cancer Prostate cancer Myocardial infarction Breast cancer Social History Smoking Status: Current every day smoker Tobacco Type: Cigarettes Age Started Using Tobacco: 13; packs per day: 0.25; Cigarettes Per Day: 5; Second Hand Exposure: No; Do You Dip or Chew Tobacco: No; Hx Alcohol Use: No Hx Substance Use: Yes Prescribed Medications: Opiates Last Used Substance: Days (ago) Substance Use Type Other:: couple times a week Preferred Language: [place] Communication Ability: Effective Visual Impairment: No Limitations Hearing Ability: Normal Steel Inspector Required: No Beliefs That Will Affect Care: None marital status: marital status details: 1 son, 3 daughters Current Living Situation: Spouse and Family Current Living Situation Comment: 1 Story home current occupational status: unemployed and disabled How many Children do You have: 5 Feels Safe at Home: Yes Safety Concerns: Feels Safe At This Time Childhood Exposure to Second-Hand Smoke: Yes Diet Comment: regular caffeine: Yes during the past year weight has: remained stable Dental Care, Regularly: No Physical Activity Frequency: Does not Exercise Seatbelt Use: never Sunscreen Use: No Assistive Devices: Cane, Glasses, Scooter/Electric Scooter and Walker Allergies Allergies Allergy/AdvReac Type Severity Reaction Status Date / Time pregabalin Allergy Severe ANAPHYLAXIS Verified 08/10/22 16:28 Home Meds Home Medications Medication Instructions Recorded Confirmed aspirin 81 mg tablet,delayed 81 mg PO QAM 05/19/21 08/10/22 release cholecalciferol (vitamin D3) 125 5,000 unit PO QAM 05/19/21 08/10/22 mcg (5,000 unit) tablet Shower Grab Bar 04/05/22 08/10/22 Previous Rx's Medication Instructions Recorded methotrexate sodium 2.5 mg tablet 15 mg PO WK 30 days #180 tabs 09/22/21 tamsulosin 0.4 mg capsule 0.4 mg PO PM #90 caps 09/22/21 ipratropium 0.5 mg-albuterol 3 mg 3 ml inhalation Q6H PRN Shortness 02/25/22 (2.5 mg base)/3 mL nebulization Of Breath Or Wheezing J44.9;j44.1 soln #3 mL midodrine 2.5 mg tablet 5 mg PO TID@0800,1200,1700 #60 tabs 03/19/22 4 in toilet rise #1 ea 04/05/22 Grab Bar Toilet #1 ea 04/05/22 carbamazepine 100 mg chewable 100 mg PO BID 90 days #180 tabs 04/22/22 tablet gabapentin 100 mg capsule 100 mg PO QID #360 caps 04/22/22 pantoprazole 40 mg tablet,delayed 40 mg PO QPM #90 tabs 04/22/22 release folic acid 1 mg tablet 1 mg PO QAM #180 tabs 05/04/22 buspirone 15 mg tablet See Rx Instructions .Route 05/18/22 .COMPLEX #90 tabs venlafaxine 75 mg capsule,extended 75 mg PO TID #90 caps 06/23/22 release 24 hr levothyroxine 25 mcg tablet 25 mcg PO DAILYBB #90 tabs 06/24/22 sennosides 8.6 mg tablet 8.6 mg PO BID #60 tabs 06/30/22 clotrimazole 10 mg anny 10 mg mucous membrane TID 14 days 07/06/22 #42 tabs oxycodone 10 mg tablet 10 mg PO TID PRN pain #90 tabs 07/15/22 docusate sodium 100 mg capsule 100 mg PO BID #180 caps 08/03/22 gabapentin 600 mg tablet 600 mg PO QID #120 tabs 08/03/22 rosuvastatin 5 mg tablet (Crestor) 5 mg PO PM #90 tabs 08/03/22 Results & Data (ED) Vital Signs Vital Signs - 24 hr 08/10/22 16:04 08/10/22 16:05 08/10/22 16:08 Temperature 37.2 C Temperature Source Oral Pulse Rate Pulse Rate [Forehead] Pulse Rate from SpO2 Sensor Respiratory Rate Respiratory Effort / Characteristics Respiratory Pattern Blood Pressure Blood Pressure Mean Pulse Oximetry Oxygen Delivery Method Non-rebreather Oxygen Flow Rate Sepsis Recent Fever Within 48 Hours No Sepsis New/Unexplained Change in Mental Status Yes Sepsis Action Taken by Nursing No Action Required 08/10/22 16:08 08/10/22 16:08 08/10/22 15:58 Temperature Temperature Source Pulse Rate Pulse Rate [Forehead] 105 H Pulse Rate from SpO2 Sensor Respiratory Rate 28 H Respiratory Effort / Characteristics Short of Breath Spontaneous Respiratory Pattern Tachypnea Blood Pressure Blood Pressure Mean Pulse Oximetry 97 Oxygen Delivery Method Nebulizer Non-rebreather Non-rebreather Oxygen Flow Rate 15 Sepsis Recent Fever Within 48 Hours Sepsis New/Unexplained Change in Mental Status Sepsis Action Taken by Nursing 08/10/22 15:51 08/10/22 15:58 08/10/22 15:58 Temperature Temperature Source Pulse Rate 103 H 102 H Pulse Rate [Forehead] Pulse Rate from SpO2 Sensor 104 H 103 H Respiratory Rate 25 H 19 Respiratory Effort / Characteristics Respiratory Pattern Blood Pressure 88/50 L Blood Pressure Mean 62 Pulse Oximetry 100 94 Oxygen Delivery Method Nebulizer Oxygen Flow Rate 15 Sepsis Recent Fever Within 48 Hours Sepsis New/Unexplained Change in Mental Status Sepsis Action Taken by Nursing 08/10/22 16:00 08/10/22 16:04 08/10/22 16:04 Temperature Temperature Source Pulse Rate 104 H 106 H Pulse Rate [Forehead] Pulse Rate from SpO2 Sensor 104 H 104 H Respiratory Rate 27 H 30 H Respiratory Effort / Characteristics Respiratory Pattern Blood Pressure 95/44 L Blood Pressure Mean 61 Pulse Oximetry 94 100 Oxygen Delivery Method Oxygen Flow Rate Sepsis Recent Fever Within 48 Hours Sepsis New/Unexplained Change in Mental Status Sepsis Action Taken by Nursing 08/10/22 15:55 08/10/22 16:15 08/10/22 16:24 Temperature Temperature Source Pulse Rate 104 H 102 H 101 H Pulse Rate [Forehead] Pulse Rate from SpO2 Sensor 102 H 101 H Respiratory Rate 25 H 18 Respiratory Effort / Characteristics Respiratory Pattern Blood Pressure Blood Pressure Mean Pulse Oximetry 95 91 Oxygen Delivery Method Oxygen Flow Rate Sepsis Recent Fever Within 48 Hours Sepsis New/Unexplained Change in Mental Status Sepsis Action Taken by Nursing 08/10/22 16:24 08/10/22 16:30 08/10/22 16:31 Temperature Temperature Source Pulse Rate 101 H Pulse Rate [Forehead] Pulse Rate from SpO2 Sensor 101 H Respiratory Rate 21 Respiratory Effort / Characteristics Respiratory Pattern Blood Pressure 90/50 L 88/54 L Blood Pressure Mean 63 65 Pulse Oximetry 94 Oxygen Delivery Method Oxygen Flow Rate Sepsis Recent Fever Within 48 Hours Sepsis New/Unexplained Change in Mental Status Sepsis Action Taken by Nursing 08/10/22 16:31 08/10/22 16:55 08/10/22 16:56 Temperature Temperature Source Pulse Rate 100 H 101 H Pulse Rate [Forehead] Pulse Rate from SpO2 Sensor 100 H Respiratory Rate 21 11 L Respiratory Effort / Characteristics Respiratory Pattern Blood Pressure 94/47 L Blood Pressure Mean 62 Pulse Oximetry 93 Oxygen Delivery Method Oxygen Flow Rate Sepsis Recent Fever Within 48 Hours Sepsis New/Unexplained Change in Mental Status Sepsis Action Taken by Nursing 08/10/22 16:56 08/10/22 17:00 08/10/22 17:01 Temperature Temperature Source Pulse Rate 103 H 103 H Pulse Rate [Forehead] Pulse Rate from SpO2 Sensor Respiratory Rate 30 H 25 H Respiratory Effort / Characteristics Respiratory Pattern Blood Pressure 88/49 L Blood Pressure Mean 62 Pulse Oximetry Oxygen Delivery Method Oxygen Flow Rate Sepsis Recent Fever Within 48 Hours Sepsis New/Unexplained Change in Mental Status Sepsis Action Taken by Nursing 08/10/22 17:01 08/10/22 17:15 08/10/22 17:15 Temperature Temperature Source Pulse Rate 102 H 103 H Pulse Rate [Forehead] Pulse Rate from SpO2 Sensor 103 H Respiratory Rate 30 H 34 H Respiratory Effort / Characteristics Respiratory Pattern Blood Pressure 103/60 Blood Pressure Mean 74 Pulse Oximetry 94 Oxygen Delivery Method Oxygen Flow Rate Sepsis Recent Fever Within 48 Hours Sepsis New/Unexplained Change in Mental Status Sepsis Action Taken by Nursing 08/10/22 17:30 08/10/22 17:30 08/10/22 17:45 Temperature Temperature Source Pulse Rate 103 H Pulse Rate [Forehead] Pulse Rate from SpO2 Sensor 102 H Respiratory Rate 23 Respiratory Effort / Characteristics Respiratory Pattern Blood Pressure 97/53 L 90/53 L Blood Pressure Mean 67 65 Pulse Oximetry 100 Oxygen Delivery Method Oxygen Flow Rate Sepsis Recent Fever Within 48 Hours Sepsis New/Unexplained Change in Mental Status Sepsis Action Taken by Nursing 08/10/22 17:45 Temperature Temperature Source Pulse Rate 106 H Pulse Rate [Forehead] Pulse Rate from SpO2 Sensor 106 H Respiratory Rate 31 H Respiratory Effort / Characteristics Respiratory Pattern Blood Pressure Blood Pressure Mean Pulse Oximetry 98 Oxygen Delivery Method Oxygen Flow Rate Sepsis Recent Fever Within 48 Hours Sepsis New/Unexplained Change in Mental Status Sepsis Action Taken by Nursing Laboratory Data 08/10/22 15:45 08/10/22 15:45 Lab Results 08/10/22 08/10/22 08/10/22 Range/Units 15:45 15:45 15:55 WBC 15.65 H (4.8-10.8) K/ul RBC 2.56 L (4.70-6.10) M/uL Hgb 8.3 L (14.0-18.0) g/dl POC Hgb (14.0-18.0) g/dl Hct 26.0 L (42.0-52.0) % POC Hct (42-52) % MCV 101.6 H (80.0-100.0) fL MCH 32.4 (25.0-34.0) pg MCHC 31.9 L (32.0-36.0) g/dL RDW Std Deviation 82.3 H (36.4-46.3) fL RDW Coeff of Alix 22.5 H (11.5-14.5) % Plt Count 343 (130-400) K/uL MPV 9.8 (9.4-12.4) fL Immature Gran % (Auto) 0.8 % Neut % (Auto) 93.6 % Lymph % (Auto) 2.3 % Iron % (Auto) 3.1 % Eos % (Auto) 0.0 % Baso % (Auto) 0.2 % Neut # (Auto) 14.65 H (1.40-6.50) K/uL Lymph # (Auto) 0.36 L (1.2-3.4) K/uL Iron # (Auto) 0.48 (0.11-0.59) K/uL Eos # (Auto) 0.00 (0-0.50) K/uL Baso # (Auto) 0.03 (0-0.2) K/uL Immature Gran # (Auto) 0.13 (0.01-0.20) K/uL Absolute Nucleated RBC 0.02 (0-0.12) K/uL Nucleated RBC % (auto) 0.1 % Dohle Bodies 1+ Polychromasia 1+ Anisocytosis Present VBG pH 7.24 L (7.36-7.41) VBG pCO2 64 H (38-50) mmHg VBG pO2 33 mmHg VBG HCO3 27 mmol/L VBG O2 Saturation < 60.0 % VBG Base Excess -1.4 mEq/L POC Sodium (135-144) mmol/L Sodium 132 L (136-145) mmol/L POC Potassium (3.3-5.0) mmol/L Potassium 5.6 H (3.5-5.1) mmol/L POC Chloride (101-112) mmol/L Chloride 97 L (98-107) mmol/L Carbon Dioxide 30 (21-32) mmol/L POC Total CO2 (24-31) mmol/L Anion Gap 5 (3-11) POC Anion Gap (16-25) mmol/L POC BUN (7-18) mg/dl BUN 24 H (6-23) mg/dl Creatinine 2.28 H (0.6-1.4) mg/dl POC Creatinine (0.6-1.3) mg/dl Est Cr Clr Drug Dosing Not Reportable Est GFR ( Amer) 34.6 ml/min Est GFR (Non-Af Amer) 29.9 ml/min BUN/Creatinine Ratio 10.5 (10-20) Glucose 79 (70-99(Fasting)) mg/dl POC Glucose (other) (70-99) mg/dl Lactate (0.4-2.0) mmol/L Calcium 8.9 (8.5-10.1) mg/dl POC Ioniz Calcium Jean Carlos (1.12-1.32) mmol/l Magnesium 1.8 (1.7-2.4) mg/dl Total Bilirubin 0.6 (0.2-1.0) mg/dl AST 39 (13-39) U/L ALT 14 (7-52) U/L Alkaline Phosphatase 111 H (34-104) U/L Troponin I High Sens 24.9 H (0-20) pg/ml Total Protein 7.7 (6.0-8.3) gm/dl Albumin 3.4 (3.4-5.0) gm/dl Globulin 4.3 H (2.5-4.0) gm/dl Albumin/Globulin Ratio 0.8 L (0.9-2) Lipase < 3 L (11-82) U/L Procalcitonin (0-0.5) ng/ml Adenovirus (PCR) (NotDetected) B. pertussis DNA (PCR) (NotDetected) B.parapertussis DNA PCR (NotDetected) C. pneumoniae DNA (PCR) (NotDetected) Coronavirus OC43 (PCR) (NotDetected) Coronavirus HKU1 (PCR) (NotDetected) Coronavirus 229E (PCR) (NotDetected) SARS-CoV-2 (PCR) (NotDetected) Coronavirus NL63 (PCR) (NotDetected) Human Metapneumovir PCR (NotDetected) Influenza Type A (PCR) (NotDetected) Influenza Type B (PCR) (NotDetected) M. pneumoniae (PCR) (NotDetected) Parainfluenza 1 (PCR) (NotDetected) Parainfluenza 2 (PCR) (NotDetected) Parainfluenza 3 (PCR) (NotDetected) Parainfluenza 4 (PCR) (NotDetected) RSV (PCR) (NotDetected) Entero/Rhino (PCR) (NotDetected) 08/10/22 08/10/22 08/10/22 Range/Units 15:55 16:00 16:05 WBC (4.8-10.8) K/ul RBC (4.70-6.10) M/uL Hgb (14.0-18.0) g/dl POC Hgb 8.2 L (14.0-18.0) g/dl Hct (42.0-52.0) % POC Hct 24 L (42-52) % MCV (80.0-100.0) fL MCH (25.0-34.0) pg MCHC (32.0-36.0) g/dL RDW Std Deviation (36.4-46.3) fL RDW Coeff of Alix (11.5-14.5) % Plt Count (130-400) K/uL MPV (9.4-12.4) fL Immature Gran % (Auto) % Neut % (Auto) % Lymph % (Auto) % Iron % (Auto) % Eos % (Auto) % Baso % (Auto) % Neut # (Auto) (1.40-6.50) K/uL Lymph # (Auto) (1.2-3.4) K/uL Iron # (Auto) (0.11-0.59) K/uL Eos # (Auto) (0-0.50) K/uL Baso # (Auto) (0-0.2) K/uL Immature Gran # (Auto) (0.01-0.20) K/uL Absolute Nucleated RBC (0-0.12) K/uL Nucleated RBC % (auto) % Dohle Bodies Polychromasia Anisocytosis VBG pH (7.36-7.41) VBG pCO2 (38-50) mmHg VBG pO2 mmHg VBG HCO3 mmol/L VBG O2 Saturation % VBG Base Excess mEq/L POC Sodium 134 L (135-144) mmol/L Sodium (136-145) mmol/L POC Potassium 5.4 H (3.3-5.0) mmol/L Potassium (3.5-5.1) mmol/L POC Chloride 101 (101-112) mmol/L Chloride (98-107) mmol/L Carbon Dioxide (21-32) mmol/L POC Total CO2 24 (24-31) mmol/L Anion Gap (3-11) POC Anion Gap 15.0 L (16-25) mmol/L POC BUN 23 H (7-18) mg/dl BUN (6-23) mg/dl Creatinine (0.6-1.4) mg/dl POC Creatinine 2.2 H (0.6-1.3) mg/dl Est Cr Clr Drug Dosing Est GFR ( Amer) ml/min Est GFR (Non-Af Amer) ml/min BUN/Creatinine Ratio (10-20) Glucose (70-99(Fasting)) mg/dl POC Glucose (other) 76 (70-99) mg/dl Lactate 1.5 (0.4-2.0) mmol/L Calcium (8.5-10.1) mg/dl POC Ioniz Calcium Jean Carlos 1.05 L (1.12-1.32) mmol/l Magnesium (1.7-2.4) mg/dl Total Bilirubin (0.2-1.0) mg/dl AST (13-39) U/L ALT (7-52) U/L Alkaline Phosphatase (34-104) U/L Troponin I High Sens (0-20) pg/ml Total Protein (6.0-8.3) gm/dl Albumin (3.4-5.0) gm/dl Globulin (2.5-4.0) gm/dl Albumin/Globulin Ratio (0.9-2) Lipase (11-82) U/L Procalcitonin (0-0.5) ng/ml Adenovirus (PCR) Not Detected (NotDetected) B. pertussis DNA (PCR) Not Detected (NotDetected) B.parapertussis DNA PCR Not Detected (NotDetected) C. pneumoniae DNA (PCR) Not Detected (NotDetected) Coronavirus OC43 (PCR) Not Detected (NotDetected) Coronavirus HKU1 (PCR) Not Detected (NotDetected) Coronavirus 229E (PCR) Not Detected (NotDetected) SARS-CoV-2 (PCR) Not Detected (NotDetected) Coronavirus NL63 (PCR) Not Detected (NotDetected) Human Metapneumovir PCR Not Detected (NotDetected) Influenza Type A (PCR) Not Detected (NotDetected) Influenza Type B (PCR) Not Detected (NotDetected) M. pneumoniae (PCR) Not Detected (NotDetected) Parainfluenza 1 (PCR) Not Detected (NotDetected) Parainfluenza 2 (PCR) Not Detected (NotDetected) Parainfluenza 3 (PCR) Not Detected (NotDetected) Parainfluenza 4 (PCR) Not Detected (NotDetected) RSV (PCR) Not Detected (NotDetected) Entero/Rhino (PCR) Not Detected (NotDetected) 08/10/22 Range/Units 16:06 WBC (4.8-10.8) K/ul RBC (4.70-6.10) M/uL Hgb (14.0-18.0) g/dl POC Hgb (14.0-18.0) g/dl Hct (42.0-52.0) % POC Hct (42-52) % MCV (80.0-100.0) fL MCH (25.0-34.0) pg MCHC (32.0-36.0) g/dL RDW Std Deviation (36.4-46.3) fL RDW Coeff of Alix (11.5-14.5) % Plt Count (130-400) K/uL MPV (9.4-12.4) fL Immature Gran % (Auto) % Neut % (Auto) % Lymph % (Auto) % Iron % (Auto) % Eos % (Auto) % Baso % (Auto) % Neut # (Auto) (1.40-6.50) K/uL Lymph # (Auto) (1.2-3.4) K/uL Iron # (Auto) (0.11-0.59) K/uL Eos # (Auto) (0-0.50) K/uL Baso # (Auto) (0-0.2) K/uL Immature Gran # (Auto) (0.01-0.20) K/uL Absolute Nucleated RBC (0-0.12) K/uL Nucleated RBC % (auto) % Dohle Bodies Polychromasia Anisocytosis VBG pH (7.36-7.41) VBG pCO2 (38-50) mmHg VBG pO2 mmHg VBG HCO3 mmol/L VBG O2 Saturation % VBG Base Excess mEq/L POC Sodium (135-144) mmol/L Sodium (136-145) mmol/L POC Potassium (3.3-5.0) mmol/L Potassium (3.5-5.1) mmol/L POC Chloride (101-112) mmol/L Chloride (98-107) mmol/L Carbon Dioxide (21-32) mmol/L POC Total CO2 (24-31) mmol/L Anion Gap (3-11) POC Anion Gap (16-25) mmol/L POC BUN (7-18) mg/dl BUN (6-23) mg/dl Creatinine (0.6-1.4) mg/dl POC Creatinine (0.6-1.3) mg/dl Est Cr Clr Drug Dosing Est GFR ( Amer) ml/min Est GFR (Non-Af Amer) ml/min BUN/Creatinine Ratio (10-20) Glucose (70-99(Fasting)) mg/dl POC Glucose (other) (70-99) mg/dl Lactate (0.4-2.0) mmol/L Calcium (8.5-10.1) mg/dl POC Ioniz Calcium Jean Carlos (1.12-1.32) mmol/l Magnesium (1.7-2.4) mg/dl Total Bilirubin (0.2-1.0) mg/dl AST (13-39) U/L ALT (7-52) U/L Alkaline Phosphatase (34-104) U/L Troponin I High Sens (0-20) pg/ml Total Protein (6.0-8.3) gm/dl Albumin (3.4-5.0) gm/dl Globulin (2.5-4.0) gm/dl Albumin/Globulin Ratio (0.9-2) Lipase (11-82) U/L Procalcitonin 34.82 H (0-0.5) ng/ml Adenovirus (PCR) (NotDetected) B. pertussis DNA (PCR) (NotDetected) B.parapertussis DNA PCR (NotDetected) C. pneumoniae DNA (PCR) (NotDetected) Coronavirus OC43 (PCR) (NotDetected) Coronavirus HKU1 (PCR) (NotDetected) Coronavirus 229E (PCR) (NotDetected) SARS-CoV-2 (PCR) (NotDetected) Coronavirus NL63 (PCR) (NotDetected) Human Metapneumovir PCR (NotDetected) Influenza Type A (PCR) (NotDetected) Influenza Type B (PCR) (NotDetected) M. pneumoniae (PCR) (NotDetected) Parainfluenza 1 (PCR) (NotDetected) Parainfluenza 2 (PCR) (NotDetected) Parainfluenza 3 (PCR) (NotDetected) Parainfluenza 4 (PCR) (NotDetected) RSV (PCR) (NotDetected) Entero/Rhino (PCR) (NotDetected) Administered Medications Buspirone HCl (Buspirone 15 Mg Tab) 22.5 mg PO QPM ISSAC Stop: 09/09/22 20:59 Last Admin: 08/10/22 20:39 Dose: 22.5 mg Documented By: SINCERE Carbamazepine (Carbamazepine 100 Mg Chew Tab) 100 mg PO BID ISSAC Stop: 09/09/22 20:59 Last Admin: 08/10/22 20:18 Dose: 100 mg Documented By: SINCERE Docusate Sodium (Docusate Sodium 100 Mg Cap) 100 mg PO BID ISSAC Stop: 09/09/22 20:59 Last Admin: 08/10/22 20:18 Dose: 100 mg Documented By: SINCERE Lactated Ringer's (Lr) 1,000 mls @ 125 mls/hr IV .Q8H ISSAC Stop: 09/09/22 19:14 Last Admin: 08/10/22 19:26 Dose: 125 mls/hr Documented By: SINCERE Pantoprazole Sodium (Pantoprazole 40 Mg Tab) 40 mg PO QPM ISSAC Stop: 09/09/22 20:59 Last Admin: 08/10/22 20:18 Dose: 40 mg Documented By: SINCERE Rosuvastatin Calcium (Rosuvastatin Calcium 5 Mg Tab) 5 mg PO PM ISSAC Stop: 09/09/22 20:59 Last Admin: 08/10/22 20:40 Dose: 5 mg Documented By: SINCERE Sennosides (Senna 8.6 Mg Tab) 8.6 mg PO BID ISSAC Stop: 09/09/22 20:59 Last Admin: 08/10/22 20:40 Dose: 8.6 mg Documented By: SINCERE Tamsulosin HCl (Tamsulosin Hcl 0.4 Mg Cap) 0.4 mg PO PM ISSAC Stop: 09/09/22 20:59 Last Admin: 08/10/22 20:40 Dose: 0.4 mg Documented By: SINCERE Venlafaxine HCl (Venlafaxine Hcl Xr 75 Mg Capxr) 75 mg PO TID ISSAC Stop: 09/09/22 20:59 Last Admin: 08/10/22 20:40 Dose: 75 mg Documented By: SINCERE Discontinued Medications Albuterol (Albut/Ipratrop 3mg/0.5mg Neb 3 Ml Vial) 12 ml NEB ONE ONE; Protocol Stop: 08/10/22 15:50 Last Admin: 08/10/22 15:58 Dose: 12 ml Documented By: KEEGAN Albuterol (Albut/Ipratrop 3mg/0.5mg Neb 3 Ml Vial) Confirm Administered Dose 12 ml .ROUTE .STK-MED ONE Stop: 08/10/22 15:52 Last Admin: 08/10/22 16:28 Dose: Not Given Documented By: SHANNA Cefepime HCl (Maxipime) 2,000 mg in 20 mls @ 5 mls/min IV NOW STA; Protocol Stop: 08/10/22 15:52 Last Admin: 08/10/22 15:57 Dose: 5 mls/min Documented By: SHANNA Sodium Chloride (Nss 1000ml) 1,000 mls @ 999 mls/hr IV .Q1H1M ONE Stop: 08/10/22 16:49 Last Infusion: 08/10/22 17:00 Dose: 0 mls/hr Documented By: Admin: 08/10/22 15:57 Dose: 999 mls/hr Documented By: SHANNA Vancomycin HCl 1,250 mg/ (Sodium Chloride) 525 mls @ 200 mls/hr IV NOW ONE Stop: 08/10/22 20:09 Last Admin: 08/10/22 17:51 Dose: 200 mls/hr Documented By: SHANNA Piperacillin Sod/Tazobactam (Sod 3.375 gm/ Dextrose) 115 mls @ 230 mls/hr IV NOW ONE; Protocol Stop: 08/10/22 19:59 Last Infusion: 08/10/22 20:35 Dose: 0 mls/hr Documented By: Admin: 08/10/22 19:46 Dose: 230 mls/hr Documented By: SINCERE Ioversol (Optiray 320 500ml) 114 ml IV ONCE ONE Stop: 08/10/22 16:48 Last Admin: 08/10/22 16:48 Dose: 114 ml Documented By: ARA Methylprednisolone (Methylprednisolone 125 Mg/2 Ml Vial) 60 mg IV NOW STA Stop: 08/10/22 15:52 Last Admin: 08/10/22 15:57 Dose: 60 mg Documented By: SHANNA Midodrine (Midodrine Hcl 10 Mg Tab) 10 mg PO ONE STA Stop: 08/10/22 17:50 Last Admin: 08/10/22 18:26 Dose: 10 mg Documented By: SHANNA Miscellaneous (Patient's Height &/Or Weight Needed) 1 each N/A Q2H ISSAC Stop: 09/09/22 19:29 Last Admin: 08/10/22 19:53 Dose: 1 each Documented By: SINCERE Imaging Data Radiologist's Impression: Chest X-Ray 08/10/22 15:39 XR chest 1V portable HISTORY: Chest pain, nonspecific COMPARISON: Chest 03/13/2022. Chest CT 06/04/2022. FINDINGS: Advanced bullous emphysema is again noted. No pneumothorax. No pleural effusions. The cardiac silhouette remains stable in size. Patchy airspace opacities within the periphery the right midlung zone and left lung base have progressed in the interval. This favors a pneumonia. Persistent scarlike densities within the left upper lung zone again noted. IMPRESSION: 1. Patchy airspace opacities within the periphery of the right midlung zone and left lung base have progressed. This favors a pneumonia. 2. Advanced bullous emphysema again noted. ACT 112: Negative or not required by law. Electronically signed by: Tian Torres M.D. 08/10/2022 3:57 PM Abdomen/Pelvis CT 08/10/22 15:50 CT OF THE ABDOMEN AND PELVIS WITH CONTRAST CLINICAL HISTORY: Sepsis. COMPARISON STUDY: CT of the abdomen and pelvis March 15, 2022. TECHNIQUE: Following IV administration of 114 mL of Optiray, axial images of the abdomen and pelvis were obtained from the lung bases to the proximal femurs. Images were reviewed in the axial, sagittal, and coronal planes. IV contrast was administered without complication. Automated exposure control was utilized for the study. A dose lowering technique was utilized adhering to the principles of ALARA. FINDINGS: Severe emphysema is noted. Extensive left lower lobe consolidation is present. There are additional lingular and right lower lobe airspace opacities. These findings are better depicted on the chest CT which will be reported separately. No pneumatosis, free air or portal venous gas is present. Liver contour is slightly lobulated. There is mild splenomegaly. No hepatic lesions are identified. There is no biliary or pancreatic ductal dilatation. A right renal cyst is present. No hydronephrosis. No lymphadenopathy is present. No evidence for a bowel obstruction. Sigmoid diverticulosis is present without evidence for acute diverticulitis. Right colon is mildly fluid-filled. Images of the pelvis are degraded by streak artifact from bilateral hip arthroplasties. Nondisplaced periprostatic fracture of the proximal left femur is again noted. This is unchanged. There are old bilateral sacral ala fractures. Right inferior and superior pubic rami fractures are subacute to chronic. No acute fractures are identified. T12 burst fracture was shown on chest CT of June 04, 2022. No fluid collection is identified. Major vasculature is patent. IMPRESSION: 1. Multifocal pneumonia, better depicted on the chest CT. Please see that report for further description. 2. No bowel obstruction. No bowel wall thickening. Sigmoid diverticulosis without evidence for acute diverticulitis. Normal appendix. 3. Multiple old fractures, as described above. No acute fractures identified. ACT 112: Negative or not required by law. Electronically signed by: Sergei Beckwith M.D. 08/10/2022 5:23 PM Chest CTA 08/10/22 15:50 CHEST CTA for PULMONARY ARTERIES CT DOSE: 1303.05 mGy.cm HISTORY: Shortness of breath. TECHNIQUE: Multiaxial CT images of the chest were performed following the intravenous administration of contrast to evaluate the pulmonary arteries. Maximal intensity projection images were also obtained. A dose lowering techni que was utilized adhering to the principles of ALARA. COMPARISON STUDY: Chest CT 06/04/2022. FINDINGS: Healing T12 burst fracture again noted with severe loss of height anteriorly and mild retropulsion. This remains unchanged. There are healing/healed right anterior rib fractures again noted. Old, healed left-sided rib fractures. No acute fractures identified within the chest. Abdominal structures will be reported on the same day abdomen and pelvis CT. Trace loculated upper left pleural effusion remains unchanged. Mild mediastinal and bilateral hilar lymphadenopathy has slightly progressed. The heart is top normal in size. No pericardial effusion. Bilateral gynecomastia again noted. No evidence for an aortic dissection. The main pulmonary artery measuring up to 3.4 cm in diameter consistent with mild pulmonary arterial hypertension. Nondi agnostic evaluation of the bilateral lower lobe and right middle lobe subsegmental pulmonary arteries due to the respiratory motion artifact. Peripheral nonocclusive filling defects seen within the left upper lobe segmental/subsegmental pulmonary arteries and the right lower lobe segmental pulmonary artery consistent with pulmonary emboli. These are technically age- indeterminate but likely chronic. No definite evidence for acute pulmonary emboli. No pneumothorax. Left upper lung zone loculated pleural gas collection again noted. This may represent a bronchopleural fistula. This remains unchang ed. There is severe bullous emphysema again noted. There is mucoid material within the trachea and mainstem bronchi. Bronchial wall thickening has progressed. Progressive patchy airspace opacities within the right mid to lower lung zone and left lower lobe. This is most pronounced within the left lower lobe. This is consistent with a pneumonia could be due to aspiration. Similar- appearing irregular nodular density within the left upper lobe on image 203. This measures approximately 18 x 17 mm. IMPRESSION: 1. Scattered nonocclusive filling defects within the segmental/subsegmental pulmonary arteries as described above likely representing chronic nonocclusive pulmonary emboli. No definite acute pulmonary emboli identified. 2. Mucoid material within the trachea and mainstem bronchi with bilateral airspace opacities most pronounced within the left lower lobe. This likely represents a pneumonia and could be due to aspiration. 3. Healing T12 burst fracture, unchanged. 4. Mild mediastinal and bilateral hilar lymphadenopathy has slightly progressed. This could be reactive to the suspected pneumonia. 5. No change in the irregular nodular density within the left upper lobe measuring 18 x 17 mm[address] follow-up recommended to exclude the possibility of a neoplastic process. 6. 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 7. Additional findings as described above. ACT 112: Negative or not required by law. Electronically signed by: Tian Torres M.D. 08/10/2022 5:[address] 08/10/22 16:02 CT OF THE HEAD WITHOUT CONTRAST CLINICAL HISTORY: Altered mental status. COMPARISON STUDY: Head CT March 13, 2022. TECHNIQUE: Helical axial images of the head were obtained without IV contrast. Automated exposure control was utilized for the study. A dose lowering technique was utilized adhering to the principles of ALARA. FINDINGS: This study is mildly compromised by artifact. No acute intracranial hemorrhage, midline shift or mass effect is present. The ventricular system is stable. 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 The basal cisterns are patent. No extra-axial collections are present. There are no findings to suggest acute dural sinus thrombosis or acute territorial infarct. No significant calvarial abnormalities are present. Moderate mucosal thickening the right maxillary sinus is noted. IMPRESSION: No acute intracranial findings. No change in appearance of the brain. ACT 112: Negative or not required by law. Electronically signed by: Sergei Beckwith M.D. 08/10/2022 5:04 PM Discharge Plan Visit Data Chief Complaint: Shortness of Breath/Dyspnea Stated Complaint: SHORTNESS OF BREATH ED Provider: Bhargav Martinez Discharge Problem: Sepsis, Acute hypotension, Hypoxia, Pneumonia Patient Disposition: Admitted As Inpatient Discharge Instructions Interventions: ED Discharge Assessment Last Done: 08/10/22 18:42
--- NOTE | 2022-08-10 15:59 | XRay Report ---
XR chest 1V portable HISTORY: Chest pain, nonspecific COMPARISON: Chest 03/13/2022. Chest CT 06/04/2022. FINDINGS: Advanced bullous emphysema is again noted. No pneumothorax. No pleural effusions. The cardi ac silhouette remains stable in size. Patchy airspace opacities within the periphery the right midlun g zone and left lung base have progressed in the interval. This favors a pneumonia. Persistent scarli ke densities within the left upper lung zone again noted. IMPRESSION: 1. Patchy airspace opacities within the periphery of the right midlung zone and left lung base have p rogressed. This favors a pneumonia. 2. Advanced bullous emphysema again noted. ACT 112: Negative or not required by law. Electronically signed by: Tian Torres M.D. 08/10/2022 3:57 PM
[2022-08-10 16:04] LABS: Hemoglobin 8.3 g/dl (14.0-18.0); Mean Corpuscular Hemoglobin 32.4 pg (25.0-34.0); Mean Corpuscular Hgb Conc 31.9 g/dL (32.0-36.0); Mean Corpuscular Volume 101.6 fL (80.0-100.0); Mean Platelet Volume 9.8 fL (9.4-12.4); Nucleated RBC # (auto) 0.02 K/uL (0-0.12); Nucleated RBC % (auto) 0.1 %; Platelet Count 343 K/uL (130-400); RDW Coefficient of Variation 22.5 % (11.5-14.5); RDW Standard Deviation 82.3 fL (36.4-46.3); Red Blood Count 2.56 M/uL (4.70-6.10); White Blood Count 15.65 K/ul (4.8-10.8)
[2022-08-10 16:17] LABS: iSTAT Creatinine 2.2 mg/dl (0.6-1.3); iSTAT Hemoglobin 8.2 g/dl (14.0-18.0); iSTAT Ionized Calcium 1.05 mmol/l (1.12-1.32); iSTAT Potassium 5.4 mmol/L (3.3-5.0)
[2022-08-10 16:20] LABS: Anisocytosis Present; Basophils # (auto) 0.03 K/uL (0-0.2); Basophils % (auto) 0.2 %; Dohle Bodies 1+; Immature Granulocytes # (auto) 0.13 K/uL (0.01-0.20); Immature Granulocytes % (auto) 0.8 %; Lymphocytes # (auto) 0.36 K/uL (1.2-3.4); Lymphocytes % (auto) 2.3 %; Monocytes # (auto) 0.48 K/uL (0.11-0.59); Monocytes % (auto) 3.1 %; Neutrophils # (auto) 14.65 K/uL (1.40-6.50); Neutrophils % (auto) 93.6 %; Polychromasia 1+
[2022-08-10 16:20] LABS: Base Excess VBG -1.4 mEq/L; HCO3 VBG 27 mmol/L; Oxygen Saturation VBG < 60.0 %; PCO2 VBG 64 mmHg (38-50); PO2 VBG 33 mmHg; pH VBG 7.24 (7.36-7.41)
[2022-08-10 16:29] LABS: Anion Gap 5 (3-11); BUN Creatinine Ratio 10.5 (10-20); Blood Urea Nitrogen 24 mg/dl (6-23); Calcium 8.9 mg/dl (8.5-10.1); Carbon Dioxide 30 mmol/L (21-32); Chloride 97 mmol/L (98-107); Est GFR (African American) 34.6 ml/min; Est GFR (Non-African American) 29.9 ml/min; Glucose 79 mg/dl (70-99(Fasting)); Potassium 5.6 mmol/L (3.5-5.1); Sodium 132 mmol/L (136-145)
[2022-08-10 16:34] LABS: Troponin I High Sensitivity 24.9 pg/ml (0-20)
[2022-08-10] MEDS ORDERED: OPTIRAY 320 500ml IV ONE (16:47)
[2022-08-10 16:59] LABS: Alanine Aminotransferase 14 U/L (7-52); Albumin Globulin Ratio 0.8 (0.9-2); Albumin Level 3.4 gm/dl (3.4-5.0); Alkaline Phosphatase 111 U/L (34-104); Aspartate Aminotransferase 39 U/L (13-39); Bilirubin,Total 0.6 mg/dl (0.2-1.0); Globulin 4.3 gm/dl (2.5-4.0); Lipase < 3 U/L (11-82); Total Protein 7.7 gm/dl (6.0-8.3)
--- NOTE | 2022-08-10 17:06 | CT Scan Report ---
CT OF THE HEAD WITHOUT CONTRAST CLINICAL HISTORY: Altered mental status. COMPARISON STUDY: Head CT March 13, 2022. TECHNIQUE: Helical axial images of the head were obtained without IV contrast. Automated exposure con trol was utilized for the study. A dose lowering technique was utilized adhering to the principles o f ALARA. FINDINGS: This study is mildly compromised by artifact. No acute intracranial hemorrhage, midline michelle ft or mass effect is present. The ventricular system is stable. 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 The basal cisterns are patent. No extra-axial collections are present. There are no fi ndings to suggest acute dural sinus thrombosis or acute territorial infarct. No significant calvarial abnormalities are present. Moderate mucosal thickening the right maxillary sinus is noted. IMPRESSION: No acute intracranial findings. No change in appearance of the brain. ACT 112: Negative or not required by law. Electronically signed by: Sergei Beckwith M.D. 08/10/2022 5:04 PM
[2022-08-10 17:08] LABS: Adenovirus PCR Not Detected (NotDetected); Bordetella parapertussis PCR Not Detected (NotDetected); Bordetella pertussis PCR Not Detected (NotDetected); Chlamydia pneumoniae PCR Not Detected (NotDetected); Coronavirus 229E PCR Not Detected (NotDetected); Coronavirus CoV-2 (COVID19)PCR Not Detected (NotDetected); Coronavirus HKU1 PCR Not Detected (NotDetected); Coronavirus NL63 PCR Not Detected (NotDetected); Coronavirus OC43PCR Not Detected (NotDetected); Human Metapneumovirus PCR Not Detected (NotDetected); Influenza A PCR Not Detected (NotDetected); Influenza B PCR Not Detected (NotDetected); Mycoplasma pneumoniae PCR Not Detected (NotDetected); Parainfluenza Virus 1 PCR Not Detected (NotDetected); Parainfluenza Virus 2 PCR Not Detected (NotDetected); Parainfluenza Virus 3 PCR Not Detected (NotDetected); Parainfluenza Virus 4 PCR Not Detected (NotDetected); Respiratory Syncytial VirusPCR Not Detected (NotDetected); Rhinovirus/Enterovirus PCR Not Detected (NotDetected)
--- NOTE | 2022-08-10 17:23 | CT Scan Report ---
CHEST CTA for PULMONARY ARTERIES CT DOSE: 1303.05 mGy.cm HISTORY: Shortness of breath. TECHNIQUE: Multiaxial CT images of the chest were performed following the intravenous administration of contrast to evaluate the pulmonary arteries. Maximal intensity projection images were also obtaine d. A dose lowering technique was utilized adhering to the principles of ALARA. COMPARISON STUDY: Chest CT 06/04/2022. FINDINGS: Healing T12 burst fracture again noted with severe loss of height anteriorly and mild retro pulsion. This remains unchanged. There are healing/healed right anterior rib fractures again noted. O ld, healed left-sided rib fractures. No acute fractures identified within the chest. Abdominal struct ures will be reported on the same day abdomen and pelvis CT. Trace loculated upper left pleural effus ion remains unchanged. Mild mediastinal and bilateral hilar lymphadenopathy has slightly progressed. The heart is top normal in size. No pericardial effusion. Bilateral gynecomastia again noted. No evid ence for an aortic dissection. The main pulmonary artery measuring up to 3.4 cm in diameter consisten t with mild pulmonary arterial hypertension. Nondiagnostic evaluation of the bilateral lower lobe and right middle lobe subsegmental pulmonary arteries due to the respiratory motion artifact. Peripheral nonocclusive filling defects seen within the left upper lobe segmental/subsegmental pulmonary arteri es and the right lower lobe segmental pulmonary artery consistent with pulmonary emboli. These are te chnically age-indeterminate but likely chronic. No definite evidence for acute pulmonary emboli. No p neumothorax. Left upper lung zone loculated pleural gas collection again noted. This may represent a bronchopleural fistula. This remains unchanged. There is severe bullous emphysema again noted. There is mucoid material within the trachea and mainstem bronchi. Bronchial wall thickening has progressed. Progressive patchy airspace opacities within the right mid to lower lung zone and left lower lobe. T his is most pronounced within the left lower lobe. This is consistent with a pneumonia could be due t o aspiration. Similar-appearing irregular nodular density within the left upper lobe on image 203. Th is measures approximately 18 x 17 mm. IMPRESSION: 1. Scattered nonocclusive filling defects within the segmental/subsegmental pulmonary arteries as deena cribed above likely representing chronic nonocclusive pulmonary emboli. No definite acute pulmonary e mboli identified. 2. Mucoid material within the trachea and mainstem bronchi with bilateral airspace opacities most pro nounced within the left lower lobe. This likely represents a pneumonia and could be due to aspiration . 3. Healing T12 burst fracture, unchanged. 4. Mild mediastinal and bilateral hilar lymphadenopathy has slightly progressed. This could be reacti ve to the suspected pneumonia. 5. No change in the irregular nodular density within the left upper lobe measuring 18 x 17 mm. [address] follow-up recommended to exclude the possibility of a neoplastic process. 6. 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 7. Additional findings as described above. ACT 112: Negative or not required by law. Electronically signed by: Tian Torres M.D. 08/10/2022 5:21 PM
--- NOTE | 2022-08-10 17:24 | CT Scan Report ---
CT OF THE ABDOMEN AND PELVIS WITH CONTRAST CLINICAL HISTORY: Sepsis. COMPARISON STUDY: CT of the abdomen and pelvis March 15, 2022. TECHNIQUE: Following IV administration of 114 mL of Optiray, axial images of the abdomen and pelvis w ere obtained from the lung bases to the proximal femurs. Images were reviewed in the axial, sagittal, and coronal planes. IV contrast was administered without complication. Automated exposure control w as utilized for the study. A dose lowering technique was utilized adhering to the principles of DERRICK Peralta. FINDINGS: Severe emphysema is noted. Extensive left lower lobe consolidation is present. There are ad ditional lingular and right lower lobe airspace opacities. These findings are better depicted on the chest CT which will be reported separately. No pneumatosis, free air or portal venous gas is present. Liver contour is slightly lobulated. There is mild splenomegaly. No hepatic lesions are identified. There is no biliary or pancreatic ductal dilatation. A right renal cyst is present. No hydronephrosis . No lymphadenopathy is present. No evidence for a bowel obstruction. Sigmoid diverticulosis is prese nt without evidence for acute diverticulitis. Right colon is mildly fluid-filled. Images of the pelvi s are degraded by streak artifact from bilateral hip arthroplasties. Nondisplaced periprostatic fract ure of the proximal left femur is again noted. This is unchanged. There are old bilateral sacral ala fractures. Right inferior and superior pubic rami fractures are subacute to chronic. No acute fractur es are identified. T12 burst fracture was shown on chest CT of June 04, 2022. No fluid collection i s identified. Major vasculature is patent. IMPRESSION: 1. Multifocal pneumonia, better depicted on the chest CT. Please see that report for further descript ion. 2. No bowel obstruction. No bowel wall thickening. Sigmoid diverticulosis without evidence for acute diverticulitis. Normal appendix. 3. Multiple old fractures, as described above. No acute fractures identified. ACT 112: Negative or not required by law. Electronically signed by: Sergei Beckwith M.D. 08/10/2022 5:23 PM
[2022-08-10] MEDS ORDERED: VANCOMYCIN HCL 1,250 MG in SODIUM CHLORIDE 0.9% 500 ML IV ONE (17:32)
[2022-08-10] MEDS ORDERED: VANCOMYCIN CONSULT ACTIVE PRN (17:32)
[2022-08-10] MEDS ORDERED: MIDODRINE HCL 10 MG TAB PO STA (17:49)
--- NOTE | 2022-08-10 17:57 | History & Physical Report ---
Date of Service August 10, 2022 Assessment & Plan (1) Acute respiratory failure with hypoxia and hypercapnia: Plan: Aim O2 sats 88-92% On no oxygen at baseline Will avoid BiPAP unless respiratory acidosis getting worse due to severe bullous emphysema and left apical bronchopleural fistula (2) Sepsis: Plan: Lactate 1.5 despite low BP on arrival suggesting we to not have to be too aggressive with fluid resuscitation based on his BP measurements. Suspect he has some hardening of his arteries given peripheral artery disease giving a falsely low reading. Broad spectrum antibiotics with vancomycin and Zosyn as below Follow up blood and sputum cultures (3) Acute hypotension: Plan: Resolved with initial IV fluids resuscitation and midodrine Continue midodrine although will increase to 10mg PO TID Continue LR for YOON which is presumed pre-renal overnight (4) Pneumonia: Plan: Zosyn IV MRSA nose swab; however even if negative would initially keep vancomycin coverage irregardless given recent history of MRSA pneumonia requiring intubation and immunosuppressed state with methotrexate, malnourished and possible lung cancer. Incentive spirometer Flutter valve Guaifenesin Given concern for aspiration pattern on CT will consult speech and language therapy to eval swallow Given complex history with MRSA pneumonia, immunosuppression, severe emphysema, chronic pulmonary emboli and possible lung cancer will consult pulmonology for recommendations (5) Pulmonary embolism: Plan: Chronic non occlusive pulmonary emboli noted on CT with definite acute pulmonary emboli identified. Given anemia requiring transfusions as recently as February will defer full anticoagulation on admission as I do not suspect this is causing his current respiraotyr distress given chronic nature If hemoglobin stable consider full anticoagulation but will defer need of this to pulmonology. (6) Chronic obstructive pulmonary disease: Plan: Severe emphysema on CT. Duonebs at home but no maintenance inhalers. Per last outside record pulmonology note he was on Breo Ellipta at one stage. On external pharmacy list he was prescribed Trelegy Ellipta on August 01 but unclear why this didn't make the med rec or if he was using this. No wheezing to suggest current exacerbation but I did exam him after an hour long duoneb and Solu-medrol 60mg IV given in the ER Consult pulmonology (7) Lung mass: Plan: Highly concerning for lung cancer given recent PET scan in july. Awaiting biopsy of this mass. (8) YOON (acute kidney injury): Plan: Suspect pre-renal given reduced appetite and not eating and drinking LR @ 125 ml/hr Repeat BMP (9) Decreased appetite: Plan: Multiple reasons for this including lung cancer but also his severe emphysema. Consider palliative care consult vs. mirtazapine use (10) Severe protein-calorie malnutrition: Plan: Consult wagon person If respiratory status better tomorrow can likely advance diet (11) Anemia: Plan: B12, folate, retic count, iron studies with AM labs (12) Rheumatoid arthritis: Plan: Hold methotrexate in setting of acute infection (13) Peripheral arterial disease: Plan: Prolonged cap refil with poorly palpable periperal pulses (14) Cirrhosis, alcoholic: Plan: Noted history of this. Monitor for worsening abdominal distention with IV fluids. (15) Anxiety: Plan: Continue venlafaxine (16) Hypothyroidism: Plan: TSH 1.65 in March 2022 Suggest coming off his levothyroxine given small dose and significant weight loss (17) Benign prostate hyperplasia: Plan: Continue tamsulosin (18) Idiopathic polyneuropathy: Plan: Reduce gabapentin to 100mg QID to avoid respiratory suppression. Consider increase as respiratory status improves backup sawyer to his home dose (19) History of alcohol use: Plan VTE Prophyalxis - heparin 5000 units SQ BID Diet - NPO due to poor respiratory status Disposition - admit to PCU Admission and Anticipated Discharge Date Admission Date: August 10, 2022 History of Present Illness Chief Complaint: Shortness of breath Primary Care Provider: Michelle Campos DO [place] is a 61 year old male who presents to the ER via EMS with shortness of breath, generalized weakness and altered mental state. Currently still smoking but down from his previous 1 pack a day. He reports progressively getting worse with his breathing, losing weaght and decreased appetite since April. Increased cough and much worse shortness of breath this last week. Today he was much more confused than normal and he was unable to measure his oxygen saturation therefore his called for an ambulance as she suspected he had pneumonia. He has a significant history of MRSA pneumonia requiring intubation and ICU admission last September. He has COPD Gold stage II per last pulmonology note and severe emphysema on CT imaging. He is currently being worked up for a lung mass which is likely a neoplasm per recent PET/CT in July. He is awaiting a biopsy of this mass next week. He is not on oxygen at home per patient although last pulmonology note mentions supplemental oxygen at 2L NC continuously. In the ER he was noted to be in severe respiratory distress. CT chest angiogram showed no acute pulmonary emboli but did show chronic non occlusive pulmonary emboli, findings concern for pneumonia (possible aspiration), left upper lobe mass previously evaluated on PET/CT and severe bullous emphysema with re- demonstration of left apical bronchopleural fistula. He was treated as sepsis with pneumonia. Initially BP of 80/50 responded to IV fluids however initial lactate was normal with this blood pressure. He was treated for pneumonia with cefepime and vancomycin. He was treated for possible COPD exacerbation with solu-medrol 60mg IV and duoneb. He was referred to medicine for admission and ongoing management of hypoxia and pneumonia. Allergies Allergy/AdvReac Type Severity Reaction Status Date / Time pregabalin Allergy Severe ANAPHYLAXIS Verified 08/10/22 16:28 Home Medications Medication Instructions Recorded Confirmed Type aspirin 81 mg tablet,delayed 81 mg PO QAM 05/19/21 08/10/22 History release cholecalciferol (vitamin D3) 125 5,000 unit PO QAM 05/19/21 08/10/22 History mcg (5,000 unit) tablet methotrexate sodium 2.5 mg tablet 15 mg PO WK 30 days #180 tabs 09/22/21 08/10/22 Rx tamsulosin 0.4 mg capsule 0.4 mg PO PM #90 caps 09/22/21 08/10/22 Rx ipratropium 0.5 mg-albuterol 3 mg 3 ml inhalation Q6H PRN Shortness 02/25/22 08/10/22 Rx (2.5 mg base)/3 mL nebulization Of Breath Or Wheezing J44.9;j44.1 soln #3 mL midodrine 2.5 mg tablet 5 mg PO TID@0800,1200,1700 #60 tabs 03/19/22 08/10/22 Rx 4 in toilet rise #1 ea 04/05/22 08/10/22 Rx Grab Bar Toilet #1 ea 04/05/22 08/10/22 Rx Shower Grab Bar 04/05/22 08/10/22 History carbamazepine 100 mg chewable 100 mg PO BID 90 days #180 tabs 04/22/22 08/10/22 Rx tablet gabapentin 100 mg capsule 100 mg PO QID #360 caps 04/22/22 08/10/22 Rx pantoprazole 40 mg tablet,delayed 40 mg PO QPM #90 tabs 04/22/22 08/10/22 Rx release folic acid 1 mg tablet 1 mg PO QAM #180 tabs 05/04/22 08/10/22 Rx buspirone 15 mg tablet See Rx Instructions .Route 05/18/22 08/10/22 Rx .COMPLEX #90 tabs venlafaxine 75 mg capsule,extended 75 mg PO TID #90 caps 06/23/22 08/10/22 Rx release 24 hr levothyroxine 25 mcg tablet 25 mcg PO DAILYBB #90 tabs 06/24/22 08/10/22 Rx sennosides 8.6 mg tablet 8.6 mg PO BID #60 tabs 06/30/22 08/10/22 Rx clotrimazole 10 mg anny 10 mg mucous membrane TID 14 days 07/06/22 08/10/22 Rx #42 tabs oxycodone 10 mg tablet 10 mg PO TID PRN pain #90 tabs 07/15/22 08/10/22 Rx docusate sodium 100 mg capsule 100 mg PO BID #180 caps 08/03/22 08/10/22 Rx gabapentin 600 mg tablet 600 mg PO QID #120 tabs 08/03/22 08/10/22 Rx rosuvastatin 5 mg tablet (Crestor) 5 mg PO PM #90 tabs 08/03/22 08/10/22 Rx Past Med/Surg History Medical History (Updated 08/10/22 @ 23:36 by Russell Dimas MD) Acid reflux Stable and controlled per patient Anemia Anxiety B12 deficiency Benign prostate hyperplasia Charcot's joint of foot, non-diabetic Chronic kidney disease, stage III (moderate) Chronic obstructive pulmonary disease Chronic pain syndrome Multifactorial in nature- LDD, neuropathy, OA, RA Cirrhosis, alcoholic HX OF (LAST ETOH 10 YEARS AGO) Follows with GI routinely Depression Flexion deformity of hand Unable to fully extend 4th and 5th digits of left hand History of stroke 2011 - NO PHYSICAL RESIDUAL EFFECTS, MEMORY PROBLEM FOLLOWING - HAS RECOVERED SOME BUT NOT ENTIRELY Hypothyroidism Hypoxemic respiratory failure, chronic resolved per pt Lumbar disc herniation with radiculopathy Lung cancer MRSA pneumonia Neuropathy, alcoholic Fair control On gabapentin On home oxygen therapy 2L n/c at HS and prn Peripheral arterial disease Stable per 03/2021 PCP note- no significant blockage with LE angiogram in 12/2020 Portal hypertension Primary osteoarthritis, left shoulder Rheumatoid arthritis Follows with rheum - [facility] Rotator cuff arthropathy of left shoulder T2DM (type 2 diabetes mellitus) NIDDM > diet controlled Glucose stable Surgical History H/O hand surgery (02/07/21) R index, middle, ring and small finger MCP joint silicone implant arthroplasties w/ extensor tendon centralization H/O oral surgery ALL TEETH OUT History of bronchoscopy (~09/2021) History of esophagogastroduodenoscopy (EGD) Hx of surgical procedure (12/2020) Angio Extremity > bilat legs Hx of umbilical hernia repair 11/14/12 S/P epidural steroid injection S/P total hip arthroplasty Status post left hip replacement (01/2018) Status post right hip replacement (10/2018) Status post-operative repair of closed fracture of left hip (2012) IM nail placement L hip Family History Father Family history of cardiac pacemaker Coronary heart disease Aneurysm Cardiac pacemaker Hx of CABG Mother Family history of cardiac pacemaker Diabetes Cardiac pacemaker Hypertension Brother Diabetes Other Family history non-contributory No family history of adverse response to anesthesia Denies family history of Colon cancer Ovarian cancer Prostate cancer Myocardial infarction Breast cancer Social History Smoking Status: Current every day smoker Tobacco Type: Cigarettes Age Started Using Tobacco: 13; packs per day: 0.25; Cigarettes Per Day: 5; Second Hand Exposure: No; Do You Dip or Chew Tobacco: No; Hx Alcohol Use: No Hx Substance Use: Yes Prescribed Medications: Opiates Last Used Substance: Days (ago) Substance Use Type Other:: couple times a week Preferred Language: Moroccan Communication Ability: Effective Visual Impairment: No Limitations Hearing Ability: Normal Drug Safety Assistant Required: No Beliefs That Will Affect Care: None marital status: marital status details: 1 son, 3 daughters Current Living Situation: Spouse and Family Current Living Situation Comment: 1 Story home current occupational status: unemployed and disabled How many Children do You have: 5 Feels Safe at Home: Yes Safety Concerns: Feels Safe At This Time Childhood Exposure to Second-Hand Smoke: Yes Diet Comment: regular caffeine: Yes during the past year weight has: remained stable Dental Care, Regularly: No Physical Activity Frequency: Does not Exercise Seatbelt Use: never Sunscreen Use: No Assistive Devices: Cane, Glasses, Scooter/Electric Scooter and Walker Review of Systems Review of Systems: All systems reviewed & are unremarkable except as noted in HPI & below Physical Exam Constitutional: + acute distress (respiratory); + not well nourished Eyes: PERRL, conjunctivae normal, anicteric sclerae ENMT: Mouth: + dry oral mucous membranes Respiratory: + respiratory distress, + labored breathing, + uses accessory muscles and + paradoxical thoraco-abdominal movement Auscultation: + breath sounds absent (bibasal), + diminished lung sounds (throughout) and + rhonchi (throughout); no wheezes Cardiovascular: Rate/Rhythm: regular rhythm and + tachycardic Heart Sounds: no murmur Extremities: normal capillary refill; no calf tenderness and no pedal edema Gastrointestinal (Abdomen): normal bowel sounds, soft, nontender, no hepatosplenomegaly Musculoskeletal: Severe generalized muscle wasting Skin: no rashes, warm and dry Neurologic: moves all extremities and awake; no focal motor deficits and not confused Speech / Cognition: normal speech Motor/Sensory: no tremor and no pronator drift Cranial Nerves: PERRL, normal accommodation, EOM intact bilaterally, normal facial strength, tongue midline, able to rotate head bilaterally, able to elevate shoulders bilaterally and no nystagmus Psychiatric: A+Ox3, euthymic affect Results & Data Results & Data ([facility]) Vital Signs (Past 12 Hours) Vital Signs Temp Pulse Pulse Resp BP Pulse Ox O2 Del Method 08/10/22 16:04 106 H 30 H 100 08/10/22 16:04 95/44 L 08/10/22 16:00 104 H 27 H 94 08/10/22 15:58 102 H 19 94 08/10/22 15:58 88/50 L 08/10/22 15:51 103 H 25 H 100 Nebulizer 08/10/22 15:58 105 H 28 H 97 Non-rebreather 08/10/22 16:08 Nebulizer, Non-rebreather 08/10/22 16:05 37.2 C 08/10/22 16:04 Non-rebreather O2 Flow Rate 08/10/22 16:04 08/10/22 16:04 08/10/22 16:00 08/10/22 15:58 08/10/22 15:58 08/10/22 15:51 15 08/10/22 15:58 15 08/10/22 16:08 08/10/22 16:05 08/10/22 16:04 Laboratory Results Abnormal lab results 08/10/22 08/10/22 08/10/22 Range/Units 15:45 15:45 15:55 WBC 15.65 H (4.8-10.8) K/ul RBC 2.56 L (4.70-6.10) M/uL Hgb 8.3 L (14.0-18.0) g/dl POC Hgb (14.0-18.0) g/dl Hct 26.0 L (42.0-52.0) % POC Hct (42-52) % MCV 101.6 H (80.0-100.0) fL MCHC 31.9 L (32.0-36.0) g/dL RDW Std Deviation 82.3 H (36.4-46.3) fL RDW Coeff of Alix 22.5 H (11.5-14.5) % Neut # (Auto) 14.65 H (1.40-6.50) K/uL Lymph # (Auto) 0.36 L (1.2-3.4) K/uL VBG pH 7.24 L (7.36-7.41) VBG pCO2 64 H (38-50) mmHg POC Sodium (135-144) mmol/L Sodium 132 L (136-145) mmol/L POC Potassium (3.3-5.0) mmol/L Potassium 5.6 H (3.5-5.1) mmol/L Chloride 97 L (98-107) mmol/L POC Anion Gap (16-25) mmol/L POC BUN (7-18) mg/dl BUN 24 H (6-23) mg/dl Creatinine 2.28 H (0.6-1.4) mg/dl POC Creatinine (0.6-1.3) mg/dl POC Ioniz Calcium Jean Carlos (1.12-1.32) mmol/l Alkaline Phosphatase 111 H (34-104) U/L Troponin I High Sens 24.9 H (0-20) pg/ml Globulin 4.3 H (2.5-4.0) gm/dl Albumin/Globulin Ratio 0.8 L (0.9-2) Lipase < 3 L (11-82) U/L Procalcitonin (0-0.5) ng/ml 08/10/22 08/10/22 Range/Units 16:05 16:06 WBC (4.8-10.8) K/ul RBC (4.70-6.10) M/uL Hgb (14.0-18.0) g/dl POC Hgb 8.2 L (14.0-18.0) g/dl Hct (42.0-52.0) % POC Hct 24 L (42-52) % MCV (80.0-100.0) fL MCHC (32.0-36.0) g/dL RDW Std Deviation (36.4-46.3) fL RDW Coeff of Alix (11.5-14.5) % Neut # (Auto) (1.40-6.50) K/uL Lymph # (Auto) (1.2-3.4) K/uL VBG pH (7.36-7.41) VBG pCO2 (38-50) mmHg POC Sodium 134 L (135-144) mmol/L Sodium (136-145) mmol/L POC Potassium 5.4 H (3.3-5.0) mmol/L Potassium (3.5-5.1) mmol/L Chloride (98-107) mmol/L POC Anion Gap 15.0 L (16-25) mmol/L POC BUN 23 H (7-18) mg/dl BUN (6-23) mg/dl Creatinine (0.6-1.4) mg/dl POC Creatinine 2.2 H (0.6-1.3) mg/dl POC Ioniz Calcium Jean Carlos 1.05 L (1.12-1.32) mmol/l Alkaline Phosphatase (34-104) U/L Troponin I High Sens (0-20) pg/ml Globulin (2.5-4.0) gm/dl Albumin/Globulin Ratio (0.9-2) Lipase (11-82) U/L Procalcitonin 34.82 H (0-0.5) ng/ml Diagnostic Findings CT OF THE HEAD WITHOUT CONTRAST CLINICAL HISTORY: Altered mental status. COMPARISON STUDY: Head CT March 13, 2022. TECHNIQUE: Helical axial images of the head were obtained without IV contrast. Automated exposure control was utilized for the study. A dose lowering technique was utilized adhering to the principles of ALARA. FINDINGS: This study is mildly compromised by artifact. No acute intracranial hemorrhage, midline shift or mass effect is present. The ventricular system is stable. 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 The basal cisterns are patent. No extra-axial collections are present. There are no findings to suggest acute dural sinus thrombosis or acute territorial infarct. No significant calvarial abnormalities are present. Moderate mucosal thickening the right maxillary sinus is noted. IMPRESSION: No acute intracranial findings. No change in appearance of the b rain. XR chest 1V portable HISTORY: Chest pain, nonspecific COMPARISON: Chest 03/13/2022. Chest CT 06/04/2022. FINDINGS: Advanced bullous emphysema is again noted. No pneumothorax. No pleural effusions. The cardiac silhouette remains stable in size. Patchy airspace opacities within the periphery the right midlung zone and left lung base have progressed in the interval. This favors a pneumonia. Persistent scarlike densities within the left upper lung zone again noted. IMPRESSION: 1. Patchy airspace opacities within the periphery of the right midlung zone and left lung base have progressed. This favors a pneumonia. 2. Advanced bullous emphysema again noted. CHEST CTA for PULMONARY ARTERIES CT DOSE: 1303.05 mGy.cm HISTORY: Shortness of breath. TECHNIQUE: Multiaxial CT images of the chest were performed following the intravenous administration of contrast to evaluate the pulmonary arteries. Maximal intensity projection images were also obtained. A dose lowering technique was utilized adhering to the principles of ALARA. COMPARISON STUDY: Chest CT 06/04/2022. FINDINGS: Healing T12 burst fracture again noted with severe loss of height an teriorly and mild retropulsion. This remains unchanged. There are healing/healed right anterior rib fractures again noted. Old, healed left-sided rib fractures. No acute fractures identified within the chest. Abdominal structures will be reported on the same day abdomen and pelvis CT. Trace loculated upper left pleural effusion remains unchanged. Mild mediastinal and bilateral hilar lymphadenopathy has slightly progressed. The heart is top normal in size. No pericardial effusion. Bilateral gynecomastia again noted. No evidence for an aortic dissection. The main pulmonary artery measuring up to 3.4 cm in diameter consistent with mild pulmonary arterial hypertension. Nondiagnostic evaluation of the bilateral lower lobe and right middle lobe subsegmental pulmonary arteries due to the respiratory motion artifact. Peripheral nonocclusive filling defects seen within the left upper lobe segmental/subsegmental pulmonary arteries and the right lower lobe segmental pulmonary artery consistent with pulmonary emboli. These are technically age-indeterminate but likely chronic. No definite evidence for acute pulmonary emboli. No pneumothorax. Left upper lung zone loculated pleural gas collection again noted. This may represent a bronchopleural fistula. This remains unchanged. There is severe bullous emphysema again noted. There is mucoid material within the trachea and mainstem bronchi. Bronchial wall thickening has progressed. Progressive patchy airspace opacities within the right mid to lower lung zone and left lower lobe. This is most pronounced within the left lower lobe. This is consistent with a pneumonia could be due to aspiration. Similar-appearing irregular nodular density within the left upper lobe on image 203. This measures approximately 18 x 17 mm. IMPRESSION: 1. Scattered nonocclusive filling defects within the segmental/subsegmental pulmonary arteries as described above likely representing chronic nonocclusive pulmonary emboli. No definite acute pulmonary emboli identified. 2. Mucoid material within the trachea and mainstem bronchi with bilateral airspace opacities most pronounced within the left lower lobe. This likely represents a pneumonia and could be due to aspiration. 3. Healing T12 burst fracture, unchanged. 4. Mild mediastinal and bilateral hilar lymphadenopathy has slightly progressed. This could be reactive to the suspected pneumonia. 5. No change in the irregular nodular density within the left upper lobe measuring 18 x 17 mm[address] follow-up recommended to exclude the possibility of a neoplastic process. 6. 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 7. Additional findings as described above. CT OF THE ABDOMEN AND PELVIS WITH CONTRAST CLINICAL HISTORY: Sepsis. COMPARISON STUDY: CT of the abdomen and pelvis March 15, 2022. TECHNIQUE: Following IV administration of 114 mL of Optiray, axial images of the abdomen and pelvis were obtained from the lung bases to the proximal femurs. Images were reviewed in the axial, sagittal, and coronal planes. IV contrast was administered without complication. Automated exposure control was utilized for the study. A dose lowering technique was utilized adhering to the principles of ALARA. FINDINGS: Severe emphysema is noted. Extensive left lower lobe consolidation is present. There are additional lingular and right lower lobe airspace opacities. These findings are better depicted on the chest CT which will be reported separately. No pneumatosis, free air or portal venous gas is present. Liver contour is slightly lobulated. There is mild splenomegaly. No hepatic lesions are identified. There is no biliary or pancreatic ductal dilatation. A right renal cyst is present. No hydronephrosis. No lymphadenopathy is present. No evidence for a bowel obstruction. Sigmoid diverticulosis is present without evidence for acute diverticulitis. Right colon is mildly fluid-filled. Images of the pelvis are degraded by streak artifact from bilateral hip arthroplasties. Nondisplaced periprostatic fracture of the proximal left femur is again noted. This is unchanged. There are old bilateral sacral ala fractures. Right inferior and superior pubic rami fractures are subacute to chronic. No acute fractures are identified. T12 burst fracture was shown on chest CT of June 04, 2022. No fluid collection is identified. Major vasculature is patent. IMPRESSION: 1. Multifocal pneumonia, better depicted on the chest CT. Please see that report for further description. 2. No bowel obstruction. No bowel wall thickening. Sigmoid diverticulosis without evidence for acute diverticulitis. Normal appendix. 3. Multiple old fractures, as described above. No acute fractures identified. Medications Administered ER Medications Given: Cefepime 2g IV NSS 1L bolus Duoneb 12 ml NEB Solu-medrol 60mg IV Vancomycin 1250mg IV ECG Rate (beats per minute): 104 Rhythm: sinus tachycardia Findings: + other (fusion complex) and + nonspecific-ST abn Comparison ECG Date: from (August 06, 2022) Change: the following changes noted (fusion complex now present) Code Status & VTE Plan Code Status DNR All other treatment outside of a cardiac arrest VTE Prophylaxis Plan VTE Prophylaxis will be ordered: Yes Critical Care Time Critical Care Time Total Critical Care Time: 45 PG Care Time/CCT Total # of Minutes Spent Total Time Spent with Patient: Total time spent is greater than 50% in coordination of care (as documented) at patient's floor/unit and/or counseling patient: Critical Care Time Total Critical Care Time: 45 Coding Level of Care Code 62268 INT INP/OBS CARE MIN Diagnoses Acute respiratory failure with hypoxia and hypercapnia J96.01; J96.02 Sepsis A41.9 Acute hypotension I95.9 Pneumonia J18.9 Pulmonary embolism I26.99 Chronic obstructive pulmonary disease J44.9 Lung mass R91.8 YOON (acute kidney injury) N17.9 Decreased appetite R63.0 Severe protein-calorie malnutrition E43 Anemia D64.9 Rheumatoid arthritis M06.9 Peripheral arterial disease I73.9 Cirrhosis, alcoholic K70.30 Anxiety F41.9 Hypothyroidism E03.9 Benign prostate hyperplasia N40.0 Idiopathic polyneuropathy G60.9 History of alcohol use Z87.898
[2022-08-10] MEDS ORDERED: ACETAMINOPHEN 325 MG TAB PO PRN (19:12)
[2022-08-10] MEDS ORDERED: busPIRone 15 MG TAB PO SCH (19:12)
[2022-08-10] MEDS: LACTATED RINGER'S 1,000 ML IV SCH (19:26)
[2022-08-10] MEDS ORDERED: PIPERACILLIN/TAZOBACTAM 3.375 GM (over 30 mins) IV ONE (19:30)
[2022-08-10] MEDS ORDERED: Patient's HEIGHT &/or WEIGHT Needed SCH (19:30)
[2022-08-10 19:41] LABS: Base Excess ABG -3.1 mEq/L (-9-1.8); HCO3 ABG 24 mmol/L (19-24); Oxygen Saturation ABG 97.1 % (90-95); PCO2 ABG 50 mmHg (35-46); PO2 ABG 79 mmHg (80-95); pH ABG 7.29 (7.35-7.45)
[2022-08-10 19:51] LABS: Allen Test Positive (Pos)
[2022-08-10 20:03] LABS: Appearance Urine Clear (Clear); Bacteria Urine Automated Negative (Negative); Bilirubin Urine Negative (Negative); Blood Urine 2+ (Negative); Color Urine Yellow; Glucose Urine UA Negative (Negative); Ketones Urine Negative (Negative); Leukocyte Esterase Urine Negative (Negative); Nitrite Urine Negative (Negative); Protein Urine 1+ (Negative); RBC Urine Automated 0-4 /hpf (0-4); Specific Gravity Urine 1.025 (1.000-1.030); Urobilinogen Urine Negative (Negative); pH Urine 5.5 (4.5-7.5)
[2022-08-10] MEDS: DOCUSATE SODIUM 100 MG CAP PO SCH (20:18)
[2022-08-10] MEDS: PANTOprazole 40 MG TAB PO SCH (20:18)
[2022-08-10] MEDS: carBAMazepine 100 MG CHEW TAB PO SCH (20:18)
[2022-08-10] MEDS ORDERED: Patient's HEIGHT &/or WEIGHT Needed STA (20:20)
[2022-08-10 20:21] LABS: Magnesium 1.8 mg/dl (1.7-2.4)
[2022-08-10] MEDS: busPIRone 15 MG TAB PO SCH (20:39)
[2022-08-10] MEDS: VENLAFAXINE HCL XR 75 MG CAPXR PO SCH (20:40)
[2022-08-10] MEDS: ROSUVASTATIN CALCIUM 5 MG TAB PO SCH (20:40)
[2022-08-10] MEDS: TAMSULOSIN HCL 0.4 MG CAP PO SCH (20:40)
[2022-08-10] MEDS: SENNA 8.6 MG TAB PO SCH (20:40)
[2022-08-10] MEDS: GABAPENTIN 100 MG CAP PO SCH (22:35)
[2022-08-10] MEDS ORDERED: HEPARIN SOD 5,000 UNIT/0.5 ML VIAL SQ SCH (23:05)
[2022-08-10] MEDS: BUDESONIDE 0.5 MG/2 ML VIAL (PULMICORT) NEB SCH (23:30)
[2022-08-10] MEDS: FORMOTEROL 20 MCG/2 ML VIAL NEB SCH (23:30)
[2022-08-10 23:31] LABS: Hematocrit (blood only) 22.7 % (42.0-52.0); Mean Corpuscular Hemoglobin 32.1 pg (25.0-34.0); Mean Corpuscular Hgb Conc 30.8 g/dL (32.0-36.0); Mean Corpuscular Volume 104.1 fL (80.0-100.0); Mean Platelet Volume 9.4 fL (9.4-12.4); Platelet Count 234 K/uL (130-400); RDW Coefficient of Variation 22.7 % (11.5-14.5); Red Blood Count 2.18 M/uL (4.70-6.10); White Blood Count 15.24 K/ul (4.8-10.8)
[2022-08-10] MEDS: PIPERACILLIN/TAZOBACTAM 3.375 GM in DEXTROSE 5% 100 ML IV SCH (23:39)
--- NOTE | 2022-08-10 23:45 | Billing Data ---
Date of Service August 10, 2022 Coding Level of Care Code 37458 CRITICAL CARE M
[2022-08-10 23:51] LABS: BUN Creatinine Ratio 13.6 (10-20); Calcium 7.9 mg/dl (8.5-10.1); Creatinine Clr Calc Pharmacy 32.1 ml/min; Est GFR (African American) 44.8 ml/min; Est GFR (Non-African American) 38.7 ml/min; Potassium 4.8 mmol/L (3.5-5.1)
[2022-08-10] MEDS: ALBUT/IPRATROP 3MG/0.5MG NEB 3 ML VIAL NEB SCH (23:57)
[2022-08-11] MEDS: LACTATED RINGER'S 1,000 ML IV SCH (04:47)
[2022-08-11] MEDS ORDERED: LEVOTHYROXINE SODIUM 25 MCG TABLET PO SCH (06:30)
[2022-08-11 06:42] LABS: Base Excess ABG 1.5 mEq/L (-9-1.8); HCO3 ABG 28 mmol/L (19-24); Oxygen Saturation ABG 98.7 % (90-95); PCO2 ABG 49 mmHg (35-46); PO2 ABG 93 mmHg (80-95); pH ABG 7.36 (7.35-7.45)
[2022-08-11 06:45] LABS: Allen Test POS (Pos)
[2022-08-11 06:59] LABS: Hematocrit (blood only) 20.4 % (42.0-52.0); Hemoglobin 6.6 g/dl (14.0-18.0); Mean Corpuscular Hemoglobin 32.8 pg (25.0-34.0); Mean Corpuscular Hgb Conc 32.4 g/dL (32.0-36.0); Mean Corpuscular Volume 101.5 fL (80.0-100.0); Mean Platelet Volume 9.5 fL (9.4-12.4); Nucleated RBC # (auto) 0.03 K/uL (0-0.12); Nucleated RBC % (auto) 0.2 %; Platelet Count 305 K/uL (130-400); RDW Coefficient of Variation 22.1 % (11.5-14.5); RDW Standard Deviation 80.8 fL (36.4-46.3); Red Blood Count 2.01 M/uL (4.70-6.10); White Blood Count 15.33 K/ul (4.8-10.8)
[2022-08-11] MEDS: FORMOTEROL 20 MCG/2 ML VIAL NEB SCH ×2 (06:59→19:52)
[2022-08-11] MEDS: BUDESONIDE 0.5 MG/2 ML VIAL (PULMICORT) NEB SCH ×2 (06:59→19:52)
[2022-08-11] MEDS: ALBUT/IPRATROP 3MG/0.5MG NEB 3 ML VIAL NEB SCH ×4 (06:59→19:52)
[2022-08-11 07:07] LABS: Anion Gap 7 (3-11); Blood Urea Nitrogen 26 mg/dl (6-23); Calcium 7.9 mg/dl (8.5-10.1); Carbon Dioxide 25 mmol/L (21-32); Chloride 106 mmol/L (98-107); Creatinine Clr Calc Pharmacy 38.6 ml/min; Est GFR (African American) 56.1 ml/min; Est GFR (Non-African American) 48.4 ml/min; Glucose 114 mg/dl (70-99(Fasting)); Potassium 4.3 mmol/L (3.5-5.1); Sodium 138 mmol/L (136-145)
[2022-08-11 07:17] LABS: Alanine Aminotransferase 14 U/L (7-52); Albumin Globulin Ratio 0.8 (0.9-2); Albumin Level 2.7 gm/dl (3.4-5.0); Alkaline Phosphatase 76 U/L (34-104); Anisocytosis Present; Aspartate Aminotransferase 36 U/L (13-39); Basophils # (auto) 0.01 K/uL (0-0.2); Basophils % (auto) 0.1 %; Bilirubin,Total 0.3 mg/dl (0.2-1.0); Globulin 3.2 gm/dl (2.5-4.0); INR 1.2 (0.9-1.1); Immature Granulocytes # (auto) 0.16 K/uL (0.01-0.20); Iron < 10 mcg/dl (35-175); Lymphocytes # (auto) 0.47 K/uL (1.2-3.4); Lymphocytes % (auto) 3.1 %; Magnesium 1.8 mg/dl (1.7-2.4); Monocytes # (auto) 0.51 K/uL (0.11-0.59); Monocytes % (auto) 3.3 %; Neutrophils # (auto) 14.18 K/uL (1.40-6.50); Neutrophils % (auto) 92.5 %; Partial Thromboplastin Ratio 1.3; Partial Thromboplastin Time 36.2 Seconds (21.0-31.0); Phosphorus 3.7 mg/dl (2.5-4.9); Prothrombin Time 13.1 Seconds (9.0-12.0); Reticulocyte % 1.6 % (0.5-2.0); Reticulocytes # 0.03 10^6/uL (0.02-0.10); Total Protein 5.9 gm/dl (6.0-8.3); Unsaturated Iron Binding Cap 231 mcg/dl (155-355)
[2022-08-11 07:27] LABS: Ferritin 123.4 ng/ml (8-388)
[2022-08-11] MEDS: MIDODRINE HCL 10 MG TAB PO SCH ×3 (07:29→16:06)
[2022-08-11 07:33] LABS: Vitamin B12 1335 pg/ml (180-914)
[2022-08-11] MEDS ORDERED: MIDODRINE HCL 2.5 MG TAB PO SCH (08:00)
[2022-08-11] MEDS ORDERED: VANCOMYCIN HCL 1,000 MG in SODIUM CHLORIDE 0.9% 250 ML IV ONE (08:30)
[2022-08-11] MEDS ORDERED: guaiFENesin 600 MG TABCR PO SCH (09:00)
[2022-08-11] MEDS: PIPERACILLIN/TAZOBACTAM 3.375 GM in DEXTROSE 5% 100 ML IV SCH ×2 (09:04→16:05)
[2022-08-11] MEDS: SENNA 8.6 MG TAB PO SCH ×2 (09:10→21:42)
[2022-08-11] MEDS: CHOLECALCIFEROL 5,000 UNITS 125 MCG TAB PO SCH (09:10)
[2022-08-11] MEDS: carBAMazepine 100 MG CHEW TAB PO SCH ×2 (09:11→21:42)
[2022-08-11] MEDS: DOCUSATE SODIUM 100 MG CAP PO SCH ×2 (09:11→21:41)
[2022-08-11] MEDS: GABAPENTIN 100 MG CAP PO SCH ×4 (09:11→21:41)
[2022-08-11] MEDS: busPIRone 15 MG TAB PO SCH ×3 (09:12→21:43)
[2022-08-11] MEDS: VENLAFAXINE HCL XR 75 MG CAPXR PO SCH ×3 (09:12→21:41)
[2022-08-11] MEDS: ASPIRIN 81 MG ECTAB PO SCH (09:33)
[2022-08-11] MEDS: HEPARIN SOD 5,000 UNIT/0.5 ML VIAL SQ SCH (09:33)
[2022-08-11 09:37] LABS: Hematocrit (blood only) 21.7 % (42.0-52.0); Hemoglobin 6.8 g/dl (14.0-18.0)
[2022-08-11] MEDS ORDERED: SODIUM CHLORIDE 0.9% 250 ML IV PRN (09:43)
[2022-08-11] MEDS: FOLIC ACID 1 MG TAB PO SCH (10:08)
--- NOTE | 2022-08-11 10:44 | Pharmacy Report ---
Pharmacy PK ABX Note - Date of Service August 11, 2022 - Assessment and Plan Assessment 61 year old M receiving vancomycin and Zosyn in the setting of sepsis due to possible pneumonia. Pt immunocompromised at baseline with history of MRSA pneumonia. MRSA nasal (-). Blood cultures pending. Pt with resolving YOON (SCr 2.28 --> 1.53). Day #2 of antimicrobial therapy. Plan Vancomycin * Loading dose: 1250 mg IV x 1 last evening * Given YOON and rapid change in renal function, opted to obtain a random level this AM. Random vancomycin level- 3.8mcg/mL this AM (~ 13.5 hr level)-- subtherapeutic. AUC guided dosing will not be utilized until renal function stabilizes. * Vanc 1gm IV (~19mg/kg) X 1 dose now. Will obtain another random level this evening to guide further dosing. Pharmacy will continue to follow and will adjust dose/frequency as necessary. Thank you. Pharmacy has transitioned to AUC monitoring for vancomycin. AUC/ISAIAS is the preferred PK/PD target and is associated with decreased risk of nephrotoxicity compared to traditional trough targets.
--- NOTE | 2022-08-11 14:04 | Hospitalist Progress Note ---
Date of Service August 11, 2022 Assessment & Plan (1) Acute respiratory failure with hypoxia and hypercapnia: Plan: Most likely secondary to lobar PNA and lung mass Aim O2 sats 88-92% On no oxygen at baseline Will avoid BiPAP unless respiratory acidosis getting worse due to severe bullous emphysema and left apical bronchopleural fistula Pulmonology on consult (2) Sepsis: Plan: Secondary to lobar PNA Lactate 1.5 despite low BP on arrival suggesting we to not have to be too aggressive with fluid resuscitation based on his BP measurements. Broad spectrum antibiotics with vancomycin and Zosyn Follow up blood and sputum cultures (3) Pneumonia: Plan: Presents with worsening shortness of breath Chest x ray showed evidence of right lobar PNA Cultures were obtained and he was started on broad spectrum antibiotics, Zosyn and vanc. Received a dose of Cefepime (4) Lung mass: Plan: Highly concerning for lung cancer given recent PET scan in july. Biopsy has been scheduled at the end of the month at [facility]. (5) Anemia: Plan: Normocytic anemia has been worked up extensively in the past by hematology and oncology accpording to patient hb 6.8 today Will transfuse B12, folate, retic count, iron studies (6) Acute hypotension: Plan: Resolved with initial IV fluids resuscitation and midodrine Continue midodrine although will increase to 10mg PO TID Continue LR for YOON which is presumed pre-renal overnight (7) Pulmonary embolism: Plan: Chronic non occlusive pulmonary emboli noted on CT with definite acute pulmonary emboli identified. Given anemia requiring transfusions as recently as February will defer full anticoagulation on admission as I do not suspect this is causing his current respiraotyr distress given chronic nature If hemoglobin stable consider full anticoagulation but will defer need of this to pulmonology. (8) Chronic obstructive pulmonary disease: Plan: Severe emphysema on CT. Duonebs at home but no maintenance inhalers. Per last outside record pulmonology note he was on Breo Ellipta at one stage. On external pharmacy list he was prescribed Trelegy Ellipta on August 01 but unclear why this didn't make the med rec or if he was using this. No wheezing to suggest current exacerbation but I did exam him after an hour long duoneb and Solu-medrol 60mg IV given in the ER Consult pulmonology (9) YOON (acute kidney injury): Plan: Resolving (10) Decreased appetite: Plan: Multiple reasons for this including lung cancer but also his severe emphysema. Consider palliative care consult vs. mirtazapine use (11) Severe protein-calorie malnutrition: Plan: Consult spray painter If respiratory status better tomorrow can likely advance diet (12) Rheumatoid arthritis: Plan: Hold methotrexate in setting of acute infection (13) Peripheral arterial disease: Plan: Prolonged cap refil with poorly palpable periperal pulses (14) Cirrhosis, alcoholic: Plan: Noted history of this. Monitor for worsening abdominal distention with IV fluids. (15) Anxiety: Plan: Continue venlafaxine (16) Hypothyroidism: Plan: TSH 1.65 in March 2022 Suggest coming off his levothyroxine given small dose and significant weight loss (17) Benign prostate hyperplasia: Plan: Continue tamsulosin (18) Idiopathic polyneuropathy: Plan: Reduce gabapentin to 100mg QID to avoid respiratory suppression. Consider increase as respiratory status improves quarter backer to his home dose (19) History of alcohol use: Plan VTE Prophyalxis - heparin 5000 units SQ BID continue hospitalization Admission and Anticipated Discharge Date Admission Date: August 10, 2022 Subjective patient seen and examined, says his shortness of breath is better Review of Systems Review of Systems: All systems reviewed are negative, apart from the ones contained in the history. Physical Exam Physical Exam: The patient is awake, alert and oriented 3, chronically ill looking HEENT--PERRL, EOMI, mucous membranes and oropharynx mildly dry Neck--supple. No JVD. No bruits. Thyroid normal, trachea midline, no adenopathy. Heart--normal S1 and S2. No murmurs, rubs or gallops. Lungs--left upper lung rhonchi, reduced air entry on right lower lung zone Abdomen--normal bowel sounds and soft. Mild epigastric and left sided abdominal pain Extremities--no cyanosis or clubbing. No edema. Dermatologic--normal skin turgor, normal color, no abnormal lymph nodes, no mariano h. Neurologic--cranial nerves II through XII grossly intact. Rheumatologic--normal range of motion. Psychiatric--normal affect. Results & Data Results & Data ([facility]) Vital Signs (Past 12 Hours) Vital Signs Temp Pulse Pulse Resp BP BP BP 08/11/22 12:28 98.2 F 84 20 89/42 L 08/11/22 11:58 98.4 F 95 H 20 88/42 L 08/11/22 11:43 98.6 F 89 20 82/38 L 08/11/22 11:14 75 16 08/11/22 11:32 97.5 F L 74 20 89/44 L 08/11/22 11:20 97.7 F 73 18 88/44 L 08/11/22 08:29 89/47 L 08/11/22 08:00 68 08/11/22 08:00 08/11/22 07:16 97.3 F L 74 19 86/46 L 08/11/22 06:59 88 19 08/11/22 04:15 97.7 F 89 23 90/47 L Pulse Ox O2 Del Method O2 Flow Rate 08/11/22 12:28 92 3 08/11/22 11:58 93 08/11/22 11:43 90 2 08/11/22 11:14 96 Nasal Cannula 2 08/11/22 11:32 100 2 08/11/22 11:20 100 08/11/22 08:29 08/11/22 08:00 08/11/22 08:00 Oxymask 8 08/11/22 07:16 100 Oxymask 9 08/11/22 06:59 91 Oxymask 9 08/11/22 04:15 92 Oxymask 7 PG Care Time/CCT Total # of Minutes Spent Total Time Spent with Patient: Total time spent is greater than 50% in coordination of care (as documented) at patient's floor/unit and/or counseling patient: Coding Level of Care Code 64943 SUB INP/OBS CARE 2/35MIN Diagnoses Acute respiratory failure with hypoxia and hypercapnia J96.01; J96.02 Sepsis A41.9 Pneumonia J18.9 Lung mass R91.8 Anemia D64.9 Acute hypotension I95.9 Pulmonary embolism I26.99 Chronic obstructive pulmonary disease J44.9 YOON (acute kidney injury) N17.9 Decreased appetite R63.0 Severe protein-calorie malnutrition E43 Rheumatoid arthritis M06.9 Peripheral arterial disease I73.9 Cirrhosis, alcoholic K70.30 Anxiety F41.9 Hypothyroidism E03.9 Benign prostate hyperplasia N40.0 Idiopathic polyneuropathy G60.9 History of alcohol use Z87.898 Time Spent (min) 35
--- NOTE | 2022-08-11 15:13 | Pulmonary Consultation ---
Date of Consultation August 11, 2022 Assessment & Plan (1) Pulmonary embolism: (2) Severe protein-calorie malnutrition: (3) Chronic obstructive pulmonary disease: (4) Acute respiratory failure with hypoxia and hypercapnia: (5) Pneumonia: Plan Impression: 61-year-old male with severe bullous emphysema and chronic hypoxemic and hypercarbic respiratory failure admitted with findings concerning for pneumonia. Recommendations: 1. Pneumonia: The patient is currently on vancomycin and Zosyn. MRSA of the nares were negative making MRSA pneumonia less likely although the patient has cultured positive for MRSA pneumonia in the past. Would continue antibiotics for now and reassess in the next 24 hours. Procalcitonin in the a.m. would be appropriate. 2. Advance COPD: Continue bronchodilators in the form of Breo and Anoro. As needed DuoNebs. He can transition back to his home trilogy once he leaves the hospital. Outpatient chronic azithromycin may be appropriate. Patient appears to be suffering an exacerbation and prednisone and azithromycin are warranted. QTc appears appropriate. May add Mucinex to his regiment. 3. Hypoxemic hypercarbic respiratory failure: Acute on chronic. Wean oxygen for oxygen saturation of 88 to 90%. May be appropriate for nocturnal no ninvasive positive pressure ventilation but this can be assessed further as an outpatient with his outpatient water systems designer. 4. History of PET positive upper lobe lesion. The patient is at a very high risk for complications associated with biopsy. This does not need to be addressed until the patient has completed full course of treatment for pneumonia and acute exacerbation of COPD. Could reassess at that point time. I would recommend follow-up CT scan in 3 to 6 months. Will defer to the patient's outpatient pulmonary providers. 5. History of PE: Would continue systemic anticoagulation. 6. Severe cachexia and weight loss. In light of the patient's other medical issues, palliative care may be appropriate. The patient's lung disease would make him candidate for potential hospice. Agree with limitations on advanced care. Dietary supplements and nutritional consultation recommended. 7. Suspect the patient's profound anemia is likely contributing to his shortness of breath. Management per primary service. Management of the patient's other medical issues is deferred to his primary admitting service. Thanks for the opportunity participating in the care of this patient. Feel free to contact us with additional questions or concerns. We will follow with you History of Present Illness Attending Physician: Ligia Garcia MD History of Present Illness Asked by hospitalist to evaluate patient with known severe bullous obstructive lung disease admitted with increasing shortness of breath. History is obtained from discussion with the patient as well as review the electronic medical record. The patient is a 61-year-old male with a history of severe obstructive lung disease. He is followed in the [facility] by Dr. Casarez. He reports that he is being followed for a PET positive pulmonary nodule which reportedly was to be biopsied in the outpatient setting. He had progressive shortness of breath over the last several weeks. He is supposed to be on oxygen at home but apparently this is never been arranged for him. He uses Trelegy as well as as needed albuterol. He uses his albuterol nebulizer about 3-4 times a day. He does cough and produce some phlegm. He does not report wheezing. He continues to smoke 5 to 7 cigarettes on a daily basis. He presented to the emergency room yesterday with shortness of breath weakness and altered mental status. He reportedly was hypotensive and in some respiratory distress on arrival. Chronic filling defects consistent with thromboembolic disease were identified and he did have some airspace opacity superimposed on his severe chronic bullous emphysematous changes. He had hypotension that responded to IV fluids. He was treated with Solu-Medrol and DuoNebs and placed on vancomycin and Zosyn. This morning, the patient reports that he is feeling slightly better. He continues to feel quite weak. He is profoundly anemic and is scheduled to receive a transfusion later today. Allergies Allergy/AdvReac Type Severity Reaction Status Date / Time pregabalin Allergy Severe ANAPHYLAXIS Verified 08/10/22 16:28 Home Medications Medication Instructions Recorded Confirmed Type aspirin 81 mg tablet,delayed 81 mg PO QAM 05/19/21 08/10/22 History release cholecalciferol (vitamin D3) 125 5,000 unit PO QAM 05/19/21 08/10/22 History mcg (5,000 unit) tablet methotrexate sodium 2.5 mg tablet 15 mg PO WK 30 days #180 tabs 09/22/21 08/10/22 Rx tamsulosin 0.4 mg capsule 0.4 mg PO PM #90 caps 09/22/21 08/10/22 Rx ipratropium 0.5 mg-albuterol 3 mg 3 ml inhalation Q6H PRN Shortness 02/25/22 08/10/22 Rx (2.5 mg base)/3 mL nebulization Of Breath Or Wheezing J44.9;j44.1 soln #3 mL midodrine 2.5 mg tablet 5 mg PO TID@0800,1200,1700 #60 tabs 03/19/22 08/10/22 Rx 4 in toilet rise #1 ea 04/05/22 08/10/22 Rx Grab Bar Toilet #1 ea 04/05/22 08/10/22 Rx Shower Grab Bar 04/05/22 08/10/22 History carbamazepine 100 mg chewable 100 mg PO BID 90 days #180 tabs 04/22/22 08/10/22 Rx tablet gabapentin 100 mg capsule 100 mg PO QID #360 caps 04/22/22 08/10/22 Rx pantoprazole 40 mg tablet,delayed 40 mg PO QPM #90 tabs 04/22/22 08/10/22 Rx release folic acid 1 mg tablet 1 mg PO QAM #180 tabs 05/04/22 08/10/22 Rx buspirone 15 mg tablet See Rx Instructions .Route 05/18/22 08/10/22 Rx .COMPLEX #90 tabs venlafaxine 75 mg capsule,extended 75 mg PO TID #90 caps 06/23/22 08/10/22 Rx release 24 hr levothyroxine 25 mcg tablet 25 mcg PO DAILYBB #90 tabs 06/24/22 08/10/22 Rx sennosides 8.6 mg tablet 8.6 mg PO BID #60 tabs 06/30/22 08/10/22 Rx clotrimazole 10 mg anny 10 mg mucous membrane TID 14 days 07/06/22 08/10/22 Rx #42 tabs oxycodone 10 mg tablet 10 mg PO TID PRN pain #90 tabs 07/15/22 08/10/22 Rx docusate sodium 100 mg capsule 100 mg PO BID #180 caps 08/03/22 08/10/22 Rx gabapentin 600 mg tablet 600 mg PO QID #120 tabs 08/03/22 08/10/22 Rx rosuvastatin 5 mg tablet (Crestor) 5 mg PO PM #90 tabs 08/03/22 08/10/22 Rx Patient History Medical History (Updated 08/10/22 @ 23:36 by Russell Dimas MD) Acid reflux Stable and controlled per patient Anemia Anxiety B12 deficiency Benign prostate hyperplasia Charcot's joint of foot, non-diabetic Chronic kidney disease, stage III (moderate) Chronic obstructive pulmonary disease Chronic pain syndrome Multifactorial in nature- LDD, neuropathy, OA, RA Cirrhosis, alcoholic HX OF (LAST ETOH 10 YEARS AGO) Follows with GI routinely Depression Flexion deformity of hand Unable to fully extend 4th and 5th digits of left hand History of stroke 2011 - NO PHYSICAL RESIDUAL EFFECTS, MEMORY PROBLEM FOLLOWING - HAS RECOVERED SOME BUT NOT ENTIRELY Hypothyroidism Hypoxemic respiratory failure, chronic resolved per pt Lumbar disc herniation with radiculopathy Lung cancer MRSA pneumonia Neuropathy, alcoholic Fair control On gabapentin On home oxygen therapy 2L n/c at HS and prn Peripheral arterial disease Stable per 03/2021 PCP note- no significant blockage with LE angiogram in 12/2020 Portal hypertension Primary osteoarthritis, left shoulder Rheumatoid arthritis Follows with rheum - [facility] Rotator cuff arthropathy of left shoulder T2DM (type 2 diabetes mellitus) NIDDM > diet controlled Glucose stable Surgical History H/O hand surgery (02/07/21) R index, middle, ring and small finger MCP joint silicone implant arthroplasties w/ extensor tendon centralization H/O oral surgery ALL TEETH OUT History of bronchoscopy (~09/2021) History of esophagogastroduodenoscopy (EGD) Hx of surgical procedure (12/2020) Angio Extremity > bilat legs Hx of umbilical hernia repair 11/14/12 S/P epidural steroid injection S/P total hip arthroplasty Status post left hip replacement (01/2018) Status post right hip replacement (10/2018) Status post-operative repair of closed fracture of left hip (2012) IM nail placement L hip Family History Father Family history of cardiac pacemaker Coronary heart disease Aneurysm Cardiac pacemaker Hx of CABG Mother Family history of cardiac pacemaker Diabetes Cardiac pacemaker Hypertension Brother Diabetes Other Family history non-contributory No family history of adverse response to anesthesia Denies family history of Colon cancer Ovarian cancer Prostate cancer Myocardial infarction Breast cancer Social History Smoking Status: Current every day smoker Tobacco Type: Cigarettes Age Started Using Tobacco: 13; packs per day: 0.25; Cigarettes Per Day: 5; Second Hand Exposure: No; Do You Dip or Chew Tobacco: No; Hx Alcohol Use: No Hx Substance Use: Yes Prescribed Medications: Opiates Last Used Substance: Days (ago) Substance Use Type Other:: couple times a week Preferred Language: Gabonese Communication Ability: Effective Visual Impairment: No Limitations Hearing Ability: Normal Commission Sales Associate Required: No Beliefs That Will Affect Care: None marital status: marital status details: 1 son, 3 daughters Current Living Situation: Spouse and Family Current Living Situation Comment: 1 Story home current occupational status: unemployed and disabled How many Children do You have: 5 Feels Safe at Home: Yes Safety Concerns: Feels Safe At This Time Childhood Exposure to Second-Hand Smoke: Yes Diet Comment: regular caffeine: Yes during the past year weight has: remained stable Dental Care, Regularly: No Physical Activity Frequency: Does not Exercise Seatbelt Use: never Sunscreen Use: No Assistive Devices: Cane, Crutches and Wheelchair Review of Systems Review of Systems: Please refer to admission H&P. No additions or deletions Physical Exam Constitutional: + thin and + cachectic; no acute distress Neck: normal visual inspection Respiratory: + tachypneic; no respiratory distress and no labored breathing Cardiovascular: Rate/Rhythm: regular rate and regular rhythm Heart Sounds: normal S1 and normal S2 Extremities: no edema Gastrointestinal (Abdomen): normal bowel sounds, soft, nontender, no hepatosplenomegaly Musculoskeletal: Gait: normal gait Psychiatric: A+Ox3, euthymic affect Results & Data Results & Data ([facility]) Vital Signs (Past 12 Hours) Vital Signs Temp Pulse Pulse Resp BP BP BP 08/11/22 14:10 36.7 C 73 18 94/44 L 08/11/22 12:28 36.8 C 84 20 89/42 L 08/11/22 11:58 36.9 C 95 H 20 88/42 L 08/11/22 11:43 37 C 89 20 82/38 L 08/11/22 11:14 75 16 08/11/22 11:32 36.4 C L 74 20 89/44 L 08/11/22 11:20 36.5 C 73 18 88/44 L 08/11/22 08:29 89/47 L 08/11/22 08:00 68 08/11/22 08:00 08/11/22 07:16 36.3 C L 74 19 86/46 L 08/11/22 06:59 88 19 08/11/22 04:15 36.5 C 89 23 90/47 L Pulse Ox O2 Del Method O2 Flow Rate 08/11/22 14:10 92 3 08/11/22 12:28 92 3 08/11/22 11:58 93 08/11/22 11:43 90 2 08/11/22 11:14 96 Nasal Cannula 2 08/11/22 11:32 100 2 08/11/22 11:20 100 08/11/22 08:29 08/11/22 08:00 08/11/22 08:00 Oxymask 8 08/11/22 07:16 100 Oxymask 9 08/11/22 06:59 91 Oxymask 9 08/11/22 04:15 92 Oxymask 7 Critical Care Results & Data Vital Signs (Past 12 Hours) Vital Signs Temp Pulse Pulse Resp BP BP BP 08/11/22 14:10 36.7 C 73 18 94/44 L 08/11/22 12:28 36.8 C 84 20 89/42 L 08/11/22 11:58 36.9 C 95 H 20 88/42 L 08/11/22 11:43 37 C 89 20 82/38 L 08/11/22 11:14 75 16 08/11/22 11:32 36.4 C L 74 20 89/44 L 08/11/22 11:20 36.5 C 73 18 88/44 L 08/11/22 08:29 89/47 L 08/11/22 08:00 68 08/11/22 08:00 08/11/22 07:16 36.3 C L 74 19 86/46 L 08/11/22 06:59 88 19 08/11/22 04:15 36.5 C 89 23 90/47 L Pulse Ox O2 Del Method O2 Flow Rate 08/11/22 14:10 92 3 08/11/22 12:28 92 3 08/11/22 11:58 93 08/11/22 11:43 90 2 08/11/22 11:14 96 Nasal Cannula 2 08/11/22 11:32 100 2 08/11/22 11:20 100 08/11/22 08:29 08/11/22 08:00 08/11/22 08:00 Oxymask 8 08/11/22 07:16 100 Oxymask 9 08/11/22 06:59 91 Oxymask 9 08/11/22 04:15 92 Oxymask 7 Lab & Micro Results (Past 24 Hours) RBC 2.01 M/uL (4.70-6.10) L 08/11/22 WBC 15.33 K/ul (4.8-10.8) H 08/11/22 Hgb 6.8 g/dl (14.0-18.0) L* 08/11/22 Hct 21.7 % (42.0-52.0) L 08/11/22 MCV 101.5 fL (80.0-100.0) H 08/11/22 MCH 32.8 pg (25.0-34.0) 08/11/22 MCHC 32.4 g/dL (32.0-36.0) 08/11/22 RDW Standard Deviation 80.8 fL (36.4-46.3) H 08/11/22 RDW Coefficient of Variation 22.1 % (11.5-14.5) H 08/11/22 Plt Count 305 K/uL (130-400) 08/11/22 MPV 9.5 fL (9.4-12.4) 08/11/22 Nucleated Red Blood Cells % (auto) 0.2 % 08/11 Nucleated RBC Absolute Count (auto) 0.03 K/uL (0-0.12) 07/29 09/20 Neutrophils (%) (Auto) 92.5 % 08/11/22 Lymphocytes (%) (Auto) 3.1 % 08/11/22 Monocytes # (Auto) 0.51 K/uL (0.11-0.59) 08/11/22 Eosinophils # (Auto) 0.00 K/uL (0-0.50) 08/11/22 Immature Granulocyte % (Auto) 1.0 % 08/11/22 Neutrophils # (Auto) 14.18 K/uL (1.40-6.50) H 08/11/22 Lymphocytes # (Auto) 0.47 K/uL (1.2-3.4) L 08/11/22 Monocytes # (Auto) 0.51 K/uL (0.11-0.59) 08/11/22 Eosinophils # (Auto) 0.00 K/uL (0-0.50) 08/11/22 Basophils # (Auto) 0.01 K/uL (0-0.2) 08/11/22 Immature Granulocyte # (Auto) 0.16 K/uL (0.01-0.20) 3 Polychromasia 1+ 08/10/22 Anisocytosis Present 08/11/22 Dohle Bodies 1+ 08/10/22 Na 138 mmol/L (136-145) 08/11/22 K 4.3 mmol/L (3.5-5.1) 08/11/22 Cl 106 mmol/L (98-107) 08/11/22 CO2 25 mmol/L (21-32) 08/11/22 Anion Gap 7 (3-11) 08/11/22 BUN 26 mg/dl (6-23) H 08/11/22 Creatinine 1.53 mg/dl (0.6-1.4) H 08/11/22 Estimated GFR ( Amer) 56.1 ml/min 08/11/22 Estimated GFR (Non-Af Amer) 48.4 ml/min 08/11/22 BUN/Creatinine Ratio 17.0 (10-20) 08/11/22 Glu 114 mg/dl (70-99(Fasting)) H 08/11/22 Ca 7.9 mg/dl (8.5-10.1) L 08/11/22 Phosphorus Level 3.7 mg/dl (2.5-4.9) 08/11/22 Total Bilirubin 0.3 mg/dl (0.2-1.0) 08/11/22 AST 36 U/L (13-39) 08/11/22 ALT 14 U/L (7-52) 08/11/22 Alkaline Phosphatase 76 U/L (34-104) 08/11/22 TP 5.9 gm/dl (6.0-8.3) L 08/11/22 Albumin 2.7 gm/dl (3.4-5.0) L 08/11/22 Globulin 3.2 gm/dl (2.5-4.0) 08/11/22 Albumin/Globulin Ratio 0.8 (0.9-2) L 08/11/22 Mg 1.8 mg/dl (1.7-2.4) 08/11/22 06:09 Calcium Level 7.9 mg/dl (8.5-10.1) L 08/11/22 06:09 Prothromb Time International Ratio 1.2 (0.9-1.1) H 08/11/22 06 :09 Venous Blood pH 7.24 (7.36-7.41) L 08/10/22 15:55 Venous Blood Partial Pressure CO2 64 mmHg (38-50) H 08/10/22 15 :55 Venous Blood Partial Pressure O2 33 mmHg 08/10/22 15:55 Venous Blood HCO3 27 mmol/L 08/10/22 15:55 Venous Blood Base Excess -1.4 mEq/L 08/10/22 15:55 Venous Blood Oxygen Saturation < 60.0 % 08/10/22 15:55 Arterial Blood pH 7.36 (7.35-7.45) 08/11/22 06:20 Arterial Blood Partial Pressure CO2 49 mmHg (35-46) H 08/11/22 06:20 Arterial Blood Partial Pressure O2 93 mmHg (80-95) 08/11/22 06: 20 Arterial Blood HCO3 28 mmol/L (19-24) H 08/11/22 06:20 Arterial Blood Base Excess 1.5 mEq/L (-9-1.8) 08/11/22 06:20 Arterial Blood Oxygen Saturation 98.7 % (90-95) H 08/11/22 06:2 0 Blood Gas Oxygen Given 7L 08/11/22 06:20 William Test POS (Pos) 08/11/22 06:20 Microbiology 08/11/22 01:27 Gram Stain - Final Sputum, Expectorated Diagnostic Findings (Past 24 Hours) Chest X-Ray 08/10/22 15:39 XR chest 1V portable HISTORY: Chest pain, nonspecific COMPARISON: Chest 03/13/2022. Chest CT 06/04/2022. FINDINGS: Advanced bullous emphysema is again noted. No pneumothorax. No pleural effusions. The cardiac silhouette remains stable in size. Patchy airspace opacities within the periphery the right midlung zone and left lung base have progressed in the interval. This favors a pneumonia. Persistent scarlike densities within the left upper lung zone again noted. IMPRESSION: 1. Patchy airspace opacities within the periphery of the right midlung zone and left lung base have progressed. This favors a pneumonia. 2. Advanced bullous emphysema again noted. ACT 112: Negative or not required by law. Electronically signed by: Tian Torres M.D. 08/10/2022 3:57 PM Abdomen/Pelvis CT 08/10/22 15:50 CT OF THE ABDOMEN AND PELVIS WITH CONTRAST CLINICAL HISTORY: Sepsis. COMPARISON STUDY: CT of the abdomen and pelvis March 15, 2022. TECHNIQUE: Following IV administration of 114 mL of Optiray, axial images of the abdomen and pelvis were obtained from the lung bases to the proximal femurs. Images were reviewed in the axial, sagittal, and coronal planes. IV contrast was administered without complication. Automated exposure control was utilized for the study. A dose lowering technique was utilized adhering to the principles of ALARA. FINDINGS: Severe emphysema is noted. Extensive left lower lobe consolidation is present. There are additional lingular and right lower lobe airspace opacities. These findings are better depicted on the chest CT which will be reported separately. No pneumatosis, free air or portal venous gas is present. Liver contour is slightly lobulated. There is mild splenomegaly. No hepatic lesions a re identified. There is no biliary or pancreatic ductal dilatation. A right renal cyst is present. No hydronephrosis. No lymphadenopathy is present. No evidence for a bowel obstruction. Sigmoid diverticulosis is present without evidence for acute diverticulitis. Right colon is mildly fluid-filled. Images of the pelvis are degraded by streak artifact from bilateral hip arthroplasties. Nondisplaced periprostatic fracture of the proximal left femur is again noted. This is unchanged. There are old bilateral sacral ala fractures. Right inferior and superior pubic rami fractures are subacute to chronic. No acute fractures are identified. T12 burst fracture was shown on chest CT of June 04, 2022. No fluid collection is identified. Major vasculature is patent. IMPRESSION: 1. Multifocal pneumonia, better depicted on the chest CT. Please see that report for further description. 2. No bowel obstruction. No bowel wall thickening. Sigmoid diverticulosis without evidence for acute diverticulitis. Normal appendix. 3. Multiple old fractures, as described above. No acute fractures identified. ACT 112: Negative or not required by law. Electronically signed by: Sergei Beckwith M.D. 08/10/2022 5:23 PM Chest CTA 08/10/22 15:50 CHEST CTA for PULMONARY ARTERIES CT DOSE: 1303.05 mGy.cm HISTORY: Shortness of breath. TECHNIQUE: Multiaxial CT images of the chest were performed following the intravenous administration of contrast to evaluate the pulmonary arteries. Maximal intensity projection images were also obtained. A dose lowering technique was utilized adhering to the principles of ALARA. COMPARISON STUDY: Chest CT 06/04/2022. FINDINGS: Healing T12 burst fracture again noted with severe loss of height anteriorly and mild retropulsion. This remains unchanged. There are healing/healed right anterior rib fractures again noted. Old, healed left-sided rib fractures. No acute fractures identified within the chest. Abdominal structures will be reported on the same day abdomen and pelvis CT. Trace loculated upper left pleural effusion remains unchanged. Mild mediastinal and bilateral hilar lymphadenopathy has slightly progressed. The heart is top normal in size. No pericardial effusion. Bilateral gynecomastia again noted. No evidence for an aortic dissection. The main pulmonary artery measuring up to 3.4 cm in diameter consistent with mild pulmonary arterial hypertension. Nondiagnostic evaluation of the bilateral lower lobe and right middle lobe subsegmental pulmonary arteries due to the respiratory motion artifact. Peripheral nonocclusive filling defects seen within the left upper lobe segmental/subsegmental pulmonary arteries and the right lower lobe segmental pulmonary artery consistent with pulmonary emboli. These are technically age- indeterminate but likely chronic. No definite evidence for acute pulmonary emboli. No pneumothorax. Left upper lung zone loculated pleural gas collection again noted. This may represent a bronchopleural fistula. This remains unchanged. There is severe bullous emphysema again noted. There is mucoid material within the trachea and mainstem bronchi. Bronchial wall thickening has progressed. Progressive patchy airspace opacities within the right mid to lower lung zone and left lower lobe. This is most pronounced within the left lower lobe. This is consistent with a pneumonia could be due to aspiration. Similar-appearing irregular nodular density within the left upper lobe on image 203. This measures approximately 18 x 17 mm. IMPRESSION: 1. Scattered nonocclusive filling defects within the segmental/subsegmental pulmonary arteries as described above likely representing chronic nonocclusive pulmonary emboli. No definite acute pulmonary emboli identified. 2. Mucoid material within the trachea and mainstem bronchi with bilateral airspace opacities most pronounced within the left lower lobe. This likely represents a pneumonia and could be due to aspiration. 3. Healing T12 burst fracture, unchanged. 4. Mild mediastinal and bilateral hilar lymphadenopathy has slightly progressed. This could be reactive to the suspected pneumonia. 5. No change in the irregular nodular density within the left upper lobe measuring 18 x 17 mm[address] follow-up recommended to exclude the possibility of a neoplastic process. 6. 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 7. Additional findings as described above. ACT 112: Negative or not required by law. Electronically signed by: Tian Torres M.D. 08/10/2022 5:[address] 08/10/22 16:02 CT OF THE HEAD WITHOUT CONTRAST CLINICAL HISTORY: Altered mental status. COMPARISON STUDY: Head CT March 13, 2022. TECHNIQUE: Helical axial images of the head were obtained without IV contrast. Automated exposure control was utilized for the study. A dose lowering technique was utilized adhering to the principles of ALARA. FINDINGS: This study is mildly compromised by artifact. No acute intracranial hemorrhage, midline shift or mass effect is present. The ventricular system is stable. 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 The basal cisterns are patent. No extra-axial collections are present. There are no findings to sug gest acute dural sinus thrombosis or acute territorial infarct. No significant calvarial abnormalities are present. Moderate mucosal thickening the right maxillary sinus is noted. IMPRESSION: No acute intracranial findings. No change in appearance of the brain. ACT 112: Negative or not required by law. Electronically signed by: Sergei Beckwith M.D. 08/10/2022 5:04 PM I & O Totals 24 Hours 08/10/22 08/11/22 08/12/22 06:59 06:59 06:59 Intake Total 2230.000 / 2230.000 1205 / 1205 Output Total 1450 / 1450 450 / 450 Balance 780.000 / 780.000 755 / 755 Cumulative 08/10/22 15:27 thru 08/11/22 14:21 Intake Total 3435.000 Output Total 1900 Balance 1535.000 RT Ventilator Mngmt (Last Documented) Ventilator Ordered Settings Respiratory Rate 18 08/11/22 14:10 Ventilator - PT Measurements Respiratory Rate 18 PG Care Time/CCT Total # of Minutes Spent Total Time Spent with Patient: Total time spent is greater than 50% in coordination of care (as documented) at patient's floor/unit and/or counseling patient: Coding Level of Care Code 35066 IN/OBS CONSULT LVL 4,60M Diagnoses Pulmonary embolism I26.99 Severe protein-calorie malnutrition E43 Chronic obstructive pulmonary disease J44.9 Acute respiratory failure with hypoxia and hypercapnia J96.01; J96.02 Pneumonia J18.9
[2022-08-11] MEDS ORDERED: VANCOMYCIN HCL 750 MG in SODIUM CHLORIDE 0.9% 250 ML IV SCH (16:00)
[2022-08-11] MEDS: AZITHROMYCIN 250 MG TAB PO SCH (16:04)
[2022-08-11] MEDS ORDERED: ENOXAPARIN 1 MG/KG SC SCH (16:30)
[2022-08-11 19:04] LABS: Hemoglobin 8.2 g/dl (14.0-18.0)
[2022-08-11] MEDS ORDERED: APIXABAN 5 MG TABLET PO SCH (21:00)
[2022-08-11] MEDS: VANCOMYCIN HCL 500 MG in DEXTROSE 5% 100 ML IV SCH (21:28)
[2022-08-11] MEDS: ENOXAPARIN INJ 60 MG/0.6 ML SYR SQ SCH (21:40)
[2022-08-11] MEDS: guaiFENesin 600 MG TABCR PO SCH (21:41)
[2022-08-11] MEDS: TAMSULOSIN HCL 0.4 MG CAP PO SCH (21:41)
[2022-08-11] MEDS: ROSUVASTATIN CALCIUM 5 MG TAB PO SCH (21:41)
[2022-08-11] MEDS: PANTOprazole 40 MG TAB PO SCH (21:41)
[2022-08-11] MEDS ORDERED: Nursing to Pharmacy Communication SCH (23:00)
[2022-08-12] MEDS: HEPARIN SOD 5,000 UNIT/0.5 ML VIAL SQ SCH (00:13)
[2022-08-12] MEDS: PIPERACILLIN/TAZOBACTAM 3.375 GM in DEXTROSE 5% 100 ML IV SCH ×2 (00:24→08:08)
--- NOTE | 2022-08-12 05:42 | Electrocardiogram Report ---
Test Reason : Blood Pressure : / mmHG Vent. Rate : 104 BPM Atrial Rate : 104 BPM P-R Int : 172 ms QRS Dur : 088 ms QT Int : 374 ms P-R-T Axes : 000 090 148 degrees QTc Int : 491 ms Poor data quality, interpretation may be adversely affected Probable Sinus tachycardia Indeterminate axis Low voltage QRS Septal infarct , age undetermined Lateral infarct , age undetermined Abnormal ECG When compared with ECG of 06-AUG-2022 15:12, Septal infarct is now Present T wave inversion now evident in Lateral leads Confirmed by Tang Hills ([id number]) on 08/12/2022 5:42:10 AM Referred By: REFERRED SELF Confirmed By:Tang Hills
--- NOTE | 2022-08-12 05:44 | Electrocardiogram Report ---
Test Reason : Blood Pressure : / mmHG Vent. Rate : 101 BPM Atrial Rate : 101 BPM P-R Int : 208 ms QRS Dur : 092 ms QT Int : 352 ms P-R-T Axes : 083 084 076 degrees QTc Int : 456 ms Sinus tachycardia T wave abnormality, consider anterior ischemia Possible Septal infarct Abnormal ECG When compared with ECG of 10-AUG-2022 15:44, Criteria for Lateral infarct are no longer Present T wave inversion no longer evident in Lateral leads Confirmed by Tang Hills ([id number]) on 08/12/2022 5:43:46 AM Referred By: REFERRED SELF Confirmed By:Tang Hills
[2022-08-12] MEDS: BUDESONIDE 0.5 MG/2 ML VIAL (PULMICORT) NEB SCH ×2 (06:58→19:35)
[2022-08-12] MEDS: FORMOTEROL 20 MCG/2 ML VIAL NEB SCH ×2 (06:58→19:35)
[2022-08-12] MEDS: ALBUT/IPRATROP 3MG/0.5MG NEB 3 ML VIAL NEB SCH ×2 (07:04→10:34)
--- NOTE | 2022-08-12 07:19 | Ultrasound Report ---
BILATERAL LOWER EXTREMITY ARTERIAL DOPPLER ULTRASOUND CLINICAL HISTORY: prolonged cap refil without palpable pulses COMPARISON STUDY: Bilateral lower extremity arterial Doppler ultrasound November 28, 2020. TECHNIQUE: Bilateral ankle to brachial indices were obtained. Grayscale, color and duplex Doppler son ography of the arterial systems of the lower extremities was then performed. FINDINGS: The right ankle to brachial index measured 1.17 when using dorsalis pedis and 1.23 when usi ng posterior tibial artery. The left ankle-brachial index measured 1.04 when using the dorsalis pedis and 1.03 when using posterior tibial artery. There is moderate atherosclerotic plaque within the diego ateral lower extremities. No elevated velocities were identified. There is triphasic flow within the right common femoral, profunda and superficial femoral arteries. There is biphasic flow within the ri ght popliteal artery as well as the right posterior tibial artery. Biphasic flow within the right per rogers artery. Monophasic and biphasic flow is noted within the right anterior tibial and dorsalis ped is vessels. Waveforms are slightly blunted when compared to ultrasound of November 28, 2020. There is biph asic flow within left common femoral, superficial femoral and popliteal arteries. There is monophasic flow within left posterior tibial, peroneal and dorsalis pedis vessels. Biphasic flow within the lef t anterior tibial artery. Prominently monophasic flow within the left dorsalis pedis. IMPRESSION: 1. Moderate atherosclerotic plaque within the lower extremities. No evidence for a hemodynamically si gnificant stenosis within the lower extremities. Patent vessels. 2. Predominantly biphasic flow within the bilateral calf vessels with monophasic flow within several vessels, as detailed above. Waveforms slightly blunted when compared to ultrasound November 28, 2020. 3. Normal ankle to brachial indices. ACT 112: Negative or not required by law. Electronically signed by: Sergei Beckwith M.D. 08/12/2022 7:17 AM
[2022-08-12 07:21] LABS: Hematocrit (blood only) 24.7 % (42.0-52.0); Mean Corpuscular Hemoglobin 32.3 pg (25.0-34.0); Mean Corpuscular Hgb Conc 32.4 g/dL (32.0-36.0); Mean Corpuscular Volume 99.6 fL (80.0-100.0); Mean Platelet Volume 9.7 fL (9.4-12.4); Platelet Count 195 K/uL (130-400); RDW Coefficient of Variation 21.7 % (11.5-14.5); RDW Standard Deviation 76.3 fL (36.4-46.3); Red Blood Count 2.48 M/uL (4.70-6.10); White Blood Count 11.11 K/ul (4.8-10.8)
[2022-08-12 07:41] LABS: BUN Creatinine Ratio 15.8 (10-20); Calcium 7.8 mg/dl (8.5-10.1); Creatinine Clr Calc Pharmacy 42.4 ml/min; Est GFR (African American) 62.9 ml/min; Est GFR (Non-African American) 54.3 ml/min
[2022-08-12] MEDS: CHOLECALCIFEROL 5,000 UNITS 125 MCG TAB PO SCH (08:00)
[2022-08-12] MEDS: DOCUSATE SODIUM 100 MG CAP PO SCH ×2 (08:00→21:15)
[2022-08-12] MEDS: AZITHROMYCIN 250 MG TAB PO SCH (08:00)
[2022-08-12] MEDS: VENLAFAXINE HCL XR 75 MG CAPXR PO SCH ×3 (08:00→21:14)
[2022-08-12] MEDS: busPIRone 15 MG TAB PO SCH ×3 (08:01→21:13)
[2022-08-12] MEDS: MIDODRINE HCL 10 MG TAB PO SCH ×3 (08:01→17:15)
[2022-08-12] MEDS: FOLIC ACID 1 MG TAB PO SCH (08:01)
[2022-08-12] MEDS: ASPIRIN 81 MG ECTAB PO SCH (08:02)
[2022-08-12] MEDS: guaiFENesin 600 MG TABCR PO SCH ×2 (08:02→21:15)
[2022-08-12] MEDS: SENNA 8.6 MG TAB PO SCH ×2 (08:03→21:14)
[2022-08-12] MEDS: GABAPENTIN 100 MG CAP PO SCH ×4 (08:03→21:14)
[2022-08-12] MEDS: carBAMazepine 100 MG CHEW TAB PO SCH ×2 (08:03→21:15)
[2022-08-12] MEDS: ENOXAPARIN INJ 60 MG/0.6 ML SYR SQ SCH ×2 (08:04→21:14)
[2022-08-12] MEDS: VANCOMYCIN HCL 500 MG in DEXTROSE 5% 100 ML IV SCH (08:12)
[2022-08-12] MEDS ORDERED: ALBUT/IPRATROP 3MG/0.5MG NEB 3 ML VIAL NEB PRN (10:39)
--- NOTE | 2022-08-12 10:44 | Pulmonology Progress Note ---
Date of Service August 12, 2022 Assessment & Plan (1) Pulmonary embolism: (2) Severe protein-calorie malnutrition: (3) Chronic obstructive pulmonary disease: (4) Acute respiratory failure with hypoxia and hypercapnia: (5) Pneumonia: Plan IMPRESSION: 61-year-old male presenting with concerns for pneumonia in the setting of severe COPD with bullous emphysema and chronic hypoxia and hypercarbia as well as concerns for PET positive LEFT upper lobe lung lesion currently being evaluated by his outpatient civil designer. RECOMMENDATIONS: 1. Pneumonia - * Remains on Zosyn, azithromycin, and vancomycin. * Procalcitonin trending down. * Can likely start de-escalating antibiotics started with vancomycin. * Would continue course of azithromycin. Argument could be made for azithromycin 3 days a week to be administered in the chronic, end-stage COPD patient, however this can certainly be deferred to the patient's primary pulmonary service. 2. Advanced COPD - * Has improved and is back to his baseline 2 L nasal cannula. Remains on Perforomist, budesonide, and DuoNebs. * Patient has been on Trelegy in the past. As long as he is able to tolerate deep inhalation holding and can perform this appropriately, he can continue this medication the outpatient. Otherwise, recommend a short course of nebulized therapies to be utilized in the outpatient on a temporary basis until he is able to follow-up with his primary lung specialist. 3. Acute on chronic hypoxemic respiratory failure with hypercapnia - * Patient has been weaned down to his baseline 2 L nasal cannula at home. 4. PET positive LEFT upper lobe lung lesion - * Apparently there had been discussion for biopsy to be performed in the outpatient by his primary civil designer. * Patient would be certainly high risk for performing biopsy or lung sampling. * Would defer ongoing management to his primary specialist at this point. 5. History of Pulmonary Embolism - * Continue anticoagulation as tolerated. 6. Severe protein calorie malnutrition - * Likely multifactorial in the chronically ill patient with high likelihood of underlying malignancy (PET Positive KELLI lesion). * Consider nutrition consultation. 7. Anemia - * Ongoing. [facility]. * Received PRBCs yesterday with improvement in H&H. Thank you for allowing us to participate in the care of this patient. We will continue to follow along. Admission and Anticipated Discharge Date Admission Date: August 10, 2022 Supervising Physician Co-Signing Physician Notes Patient seen and examined. EMR reviewed. Discussed with JUSTIN and agree with AP as noted. From respiratory standpoint, the patient is improved. His oxygen requirement is decreased. He remains functionally limited due to his orthopedic issues. Ok to transition to oral abx and complete 5-7 day course. Does not need antipsuedomanal or MRSA coverage at this point. Will need to follow up with Dr. Casarez regarding his CT abnormalities, recommend short interval follow up CT scan. High risk for biopsy and unclear what treatment options the patient would tolerate. Appears close to his poor pulmonary baseline. dispo per primary service. Subjective Patient seen and evaluated bedside today. He reports feeling generally tired, but states that his breathing has improved and his cough is manageable. Review of Systems Review of Systems: A complete 6 point review of systems was reviewed with the patient with pertinent positives and negatives as per history of present illness. All else were negative. Physical Exam Physical Exam: VITAL SIGNS - Vital signs and nursing notes were reviewed. GENERAL - 61-year-old cachectic male appearing his stated age who is in no acute distress. Communicates well with provider and answers questions appropriately. NOSE - Midline and without cyanosis. MOUTH/OROPHARYNX - Without perioral cyanosis. NECK - Neck with FROM. LUNGS - Coarse breath sounds, rhonchorus at the based with faint inspiratory wheeze noted apically. CARDIAC - RRR with S1/S2. No murmur, rubs, or gallops appreciated. ABDOMEN - Abdominal contour flat without pulsations or visible masses. BS normoactive all four quadrants. No tenderness, palpable masses, hepatosplenomegaly, or ascites noted. EXTREMITIES - No clubbing or peripheral cyanosis. No pretibial edema present. NEUROLOGIC - Cranial nerves II through XII grossly intact. PSYCH - A&Ox3 and cooperates fully with examiner. Results & Data Results & Data ([facility]) Vital Signs (Past 12 Hours) Vital Signs Temp Pulse Pulse Pulse Resp BP Pulse Ox 08/12/22 07:31 36.7 C 91 H 18 99/49 L 94 08/12/22 07:00 82 18 91 08/12/22 02:57 18 92 08/12/22 02:48 36.8 C 84 20 93/46 L 100 08/11/22 23:55 80 08/11/22 22:40 36.6 C 82 18 92/55 L 92 O2 Del Method O2 Flow Rate 08/12/22 07:31 Nasal Cannula 2 08/12/22 07:00 Nasal Cannula 2 08/12/22 02:57 Nasal Cannula 2 08/12/22 02:48 Nasal Cannula 08/11/22 23:55 08/11/22 22:40 Nasal Cannula 2 PG Care Time/CCT Total # of Minutes Spent Total Time Spent with Patient: Total time spent is greater than 50% in coordination of care (as documented) at patient's floor/unit and/or counseling patient: Coding Level of Care Code 20062 SUB INP/OBS CARE 3/50MIN Diagnoses Pulmonary embolism I26.99 Severe protein-calorie malnutrition E43 Chronic obstructive pulmonary disease J44.9 Acute respiratory failure with hypoxia and hypercapnia J96.01; J96.02 Pneumonia J18.9
--- NOTE | 2022-08-12 13:15 | Hospitalist Progress Note ---
Date of Service August 12, 2022 Assessment & Plan (1) Acute respiratory failure with hypoxia and hypercapnia: Plan: Most likely secondary to lobar PNA and lung mass Musch improved today Currently on 2L of oxygen Aim O2 sats 88-92% Not on oxygen at baseline Will avoid BiPAP unless respiratory acidosis getting worse due to severe bullous emphysema and left apical bronchopleural fistula Appreciate Pulmonology recs (2) Sepsis: Plan: Secondary to lobar PNA Now resolving Procalcitonin is down trending Now on Cefuroxime PO and Azithromycin (3) Pneumonia: Plan: Presents with worsening shortness of breath Chest x ray showed evidence of right lobar PNA Cultures were obtained and he was started on broad spectrum antibiotics, Clinically much improved Now on Cefuroxime and Azithromycin (4) Lung mass: Plan: Highly concerning for lung cancer given recent PET scan in july. Biopsy has been scheduled at the end of the month at [facility]. (5) Anemia: Plan: Normocytic anemia has been worked up extensively in the past by hematology and oncology accpording to patient hb 8 post transfusion Will also start PO iron given low iron levels (6) Acute hypotension: Plan: Resolved with initial IV fluids resuscitation and midodrine Continue midodrine although will increase to 10mg PO TID Continue LR for YOON which is presumed pre-renal overnight (7) Pulmonary embolism: Plan: Chronic non occlusive pulmonary emboli noted on CT with definite acute pulmonary emboli identified. Started on Lovenox 50mg BID patient said the is willing to help with Lovenox injections at home (8) Chronic obstructive pulmonary disease: Plan: Severe emphysema on CT. Duonebs at home but no maintenance inhalers. Per last outside record pulmonology note he was on Breo Ellipta at one stage. On external pharmacy list he was prescribed Trelegy Ellipta on August 01 but unclear why this didn't make the med rec or if he was using this. No wheezing to suggest current exacerbation but I did exam him after an hour long duoneb and Solu-medrol 60mg IV given in the ER Continue Duonebs PRN and Budesonide Also Azithromycin PO (9) YOON (acute kidney injury): Plan: Resolved (10) Decreased appetite: Plan: Multiple reasons for this including lung cancer but also his severe emphysema. Dietary on consult (11) Severe protein-calorie malnutrition: Plan: Consult groundhand (12) Rheumatoid arthritis: Plan: Hold methotrexate in setting of acute infection (13) Peripheral arterial disease: Plan: Prolonged cap refil with poorly palpable periperal pulses (14) Cirrhosis, alcoholic: Plan: Noted history of this. Monitor for worsening abdominal distention with IV fluids. (15) Anxiety: Plan: Continue venlafaxine (16) Hypothyroidism: Plan: TSH 1.65 in March 2022 Suggest coming off his levothyroxine given small dose and significant weight loss (17) Benign prostate hyperplasia: Plan: Continue tamsulosin (18) Idiopathic polyneuropathy: Plan: Reduce gabapentin to 100mg QID to avoid respiratory suppression. 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 Physical Exam Physical Exam: The patient is awake, alert and oriented 3, chronically ill looking HEENT--PERRL, EOMI, mucous membranes and oropharynx mildly dry Neck--supple. No JVD. No bruits. Thyroid normal, trachea midline, no adenopathy. Heart--normal S1 and S2. No murmurs, rubs or gallops. Lungs--left upper lung rhonchi, reduced air entry on right lower lung zone Abdomen--normal bowel sounds and soft. Mild epigastric and left sided abdominal pain Extremities--no cyanosis or clubbing. No edema. Dermatologic--normal skin turgor, normal color, no abnormal lymph nodes, no rash. Neurologic--cranial nerves II through XII grossly intact. Rheumatologic--normal range of motion. Psychiatric--normal affect. Results & Data Results & Data Vital Signs (Past 12 Hours) Vital Signs Temp Pulse Pulse Resp BP Pulse Ox O2 Del Method 08/12/22 11:32 Nasal Cannula 08/12/22 10:53 97.9 F 98 H 18 99/50 L 91 Nasal Cannula 08/12/22 10:28 98 H 18 96 Nasal Cannula 08/12/22 07:31 98.1 F 91 H 18 99/49 L 94 Nasal Cannula 08/12/22 07:00 82 18 91 Nasal Cannula 08/12/22 02:57 18 92 Nasal Cannula 08/12/22 02:48 98.2 F 84 20 93/46 L 100 Nasal Cannula O2 Flow Rate 08/12/22 11:32 2 08/12/22 10:53 1 08/12/22 10:28 2 08/12/22 07:31 2 08/12/22 07:00 2 08/12/22 02:57 2 08/12/22 02:48 PG Care Time/CCT Total # of Minutes Spent Total Time Spent with Patient: Total time spent is greater than 50% in coordination of care (as documented) at patient's floor/unit and/or counseling patient: Coding Level of Care Code 49542 SUB INP/OBS CARE 2/35MIN Diagnoses Acute respiratory failure with hypoxia and hypercapnia J96.01; J96.02 Sepsis A41.9 Pneumonia J18.9 Lung mass R91.8 Anemia D64.9 Acute hypotension I95.9 Pulmonary embolism I26.99 Chronic obstructive pulmonary disease J44.9 YOON (acute kidney injury) N17.9 Decreased appetite R63.0 Severe protein-calorie malnutrition E43 Rheumatoid arthritis M06.9 Peripheral arterial disease I73.9 Cirrhosis, alcoholic K70.30 Anxiety F41.9 Hypothyroidism E03.9 Benign prostate hyperplasia N40.0 Idiopathic polyneuropathy G60.9 History of alcohol use Z87.898 Time Spent (min) 35
[2022-08-12] MEDS: FERROUS SULFATE 325 MG TAB PO SCH (17:15)
[2022-08-12] MEDS: PANTOprazole 40 MG TAB PO SCH (21:14)
[2022-08-12] MEDS: TAMSULOSIN HCL 0.4 MG CAP PO SCH (21:14)
[2022-08-12] MEDS: cefUROXime axetil 500 MG TAB PO SCH (21:14)
[2022-08-12] MEDS: ROSUVASTATIN CALCIUM 5 MG TAB PO SCH (21:14)
[2022-08-13] MEDS: FORMOTEROL 20 MCG/2 ML VIAL NEB SCH ×2 (07:19→19:11)
[2022-08-13] MEDS: BUDESONIDE 0.5 MG/2 ML VIAL (PULMICORT) NEB SCH ×2 (07:19→19:11)
[2022-08-13 08:14] LABS: Hematocrit (blood only) 25.1 % (42.0-52.0); Hemoglobin 8.2 g/dl (14.0-18.0); Mean Corpuscular Hemoglobin 32.3 pg (25.0-34.0); Mean Corpuscular Hgb Conc 32.7 g/dL (32.0-36.0); Mean Corpuscular Volume 98.8 fL (80.0-100.0); Mean Platelet Volume 9.9 fL (9.4-12.4); Platelet Count 206 K/uL (130-400); RDW Coefficient of Variation 21.1 % (11.5-14.5); Red Blood Count 2.54 M/uL (4.70-6.10); White Blood Count 8.37 K/ul (4.8-10.8)
[2022-08-13] MEDS: carBAMazepine 100 MG CHEW TAB PO SCH ×2 (08:29→21:12)
[2022-08-13] MEDS: busPIRone 15 MG TAB PO SCH ×3 (08:29→21:12)
[2022-08-13] MEDS: cefUROXime axetil 500 MG TAB PO SCH ×2 (08:30→21:11)
[2022-08-13] MEDS: DOCUSATE SODIUM 100 MG CAP PO SCH ×2 (08:30→21:12)
[2022-08-13] MEDS: GABAPENTIN 100 MG CAP PO SCH ×4 (08:31→21:11)
[2022-08-13] MEDS: ENOXAPARIN INJ 60 MG/0.6 ML SYR SQ SCH ×2 (08:31→21:19)
[2022-08-13] MEDS: SENNA 8.6 MG TAB PO SCH ×2 (08:32→21:12)
[2022-08-13] MEDS: guaiFENesin 600 MG TABCR PO SCH ×2 (08:32→21:11)
[2022-08-13] MEDS: FERROUS SULFATE 325 MG TAB PO SCH ×2 (08:33→17:39)
[2022-08-13] MEDS: AZITHROMYCIN 250 MG TAB PO SCH (08:33)
[2022-08-13] MEDS: VENLAFAXINE HCL XR 75 MG CAPXR PO SCH ×3 (08:33→21:11)
[2022-08-13] MEDS: ASPIRIN 81 MG ECTAB PO SCH (08:34)
[2022-08-13 08:35] LABS: BUN Creatinine Ratio 15.7 (10-20); Calcium 8.1 mg/dl (8.5-10.1); Creatinine Clr Calc Pharmacy 65.1 ml/min; Est GFR (Non-African American) 92.3 ml/min; Potassium 3.8 mmol/L (3.5-5.1)
[2022-08-13] MEDS: CHOLECALCIFEROL 5,000 UNITS 125 MCG TAB PO SCH (08:35)
[2022-08-13] MEDS: FOLIC ACID 1 MG TAB PO SCH (08:35)
[2022-08-13] MEDS: MIDODRINE HCL 10 MG TAB PO SCH ×3 (08:36→17:39)
--- NOTE | 2022-08-13 12:52 | Pulmonology Progress Note ---
Date of Service August 13, 2022 Assessment & Plan (1) Pulmonary embolism: (2) Severe protein-calorie malnutrition: (3) Chronic obstructive pulmonary disease: (4) Acute respiratory failure with hypoxia and hypercapnia: (5) Pneumonia: Plan IMPRESSION: 61-year-old male presenting with concerns for pneumonia in the setting of severe COPD with bullous emphysema and chronic hypoxia and hypercarbia as well as concerns for PET positive LEFT upper lobe lung lesion currently being evaluated by his outpatient cross tie turner. RECOMMENDATIONS: 1. Pneumonia - * Transitioned to PO antibiotics (Azithromycin and Cefuroxime) which can be completed in the outpatient. * Argument could be made for azithromycin 3 days a week to be administered in the chronic, end-stage COPD patient, however this can certainly be deferred to the patient's primary pulmonary service. 2. Advanced COPD - * Continues to improve. Requiring 1L now. He had previously been on 2L NC at home which he had discontinued himself. He is requesting O2 for home at the time of discharge. Will defer to primary service. * He is without wheezing on exam and his rhonchi have greatly improved. * Patient has been on Trelegy in the past. As long as he is able to tolerate deep inhalation holding and can perform this appropriately, he can continue this medication the outpatient. Otherwise, recommend a short course of nebulized therapies (Budesonide and Perforomist) to be utilized in the outpatient on a temporary basis until he is able to follow-up with his primary lung specialist. 3. Acute on chronic hypoxemic respiratory failure with hypercapnia - * Patient has been weaned down to his baseline 1 L nasal cannula. 4. PET positive LEFT upper lobe lung lesion - * Apparently there had been discussion for biopsy to be performed in the outpatient by his primary cross tie turner. * Patient would be certainly high risk for performing biopsy or lung sampling. * Would defer ongoing management to his primary specialist at this point. 5. History of Pulmonary Embolism - * Continue anticoagulation as tolerated. 6. Severe protein calorie malnutrition - * Likely multifactorial in the chronically ill patient with high likelihood of underlying malignancy (PET Positive KELLI lesion). * Consider nutrition consultation. 7. Anemia - * Ongoing. [facility] by [facility]. * H&H has remained stable after PRBCs on 08/11. Thank you for allowing us to participate in the care of this patient. Pulmonary medicine will sign off at this time. Please contact us if we can be of any further assistance in the management of this patient. Admission and Anticipated Discharge Date Admission Date: August 10, 2022 Subjective Patient seen and evaluated bedside. He is sitting in a chair. He reports feeling better. He has persistent dry cough, but reports that his breathing has improved. He is hopeful to be discharged home soon. He is requesting oxygen to use at home at the time of discharge Review of Systems Review of Systems: A complete 6 point review of systems was reviewed with the patient with pert inent positives and negatives as per history of present illness. All else were negative. Physical Exam Physical Exam: VITAL SIGNS - Vital signs and nursing notes were reviewed. GENERAL - 61-year-old cachectic male appearing his stated age who is in no acute distress. Communicates well with provider and answers questions appropriately. NOSE - Midline and without cyanosis. MOUTH/OROPHARYNX - Without perioral cyanosis. LUNGS - Decreased air entry. No wheezing. Rhonchi improved from yesterday's exam. CARDIAC - RRR with S1/S2. No murmur, rubs, or gallops appreciated. ABDOMEN - Abdominal contour flat without pulsations or visible masses. BS normoactive all four quadrants. No tenderness, palpable masses, hepatosplenomegaly, or ascites noted. PSYCH - A&Ox3 and cooperates fully with examiner. Results & Data Results & Data Vital Signs (Past 12 Hours) Vital Signs Temp Pulse Pulse Resp BP BP Pulse Ox 08/13/22 12:12 36.7 C 96 H 18 103/60 98 08/13/22 08:00 08/13/22 07:36 36.5 C 95 H 20 102/64 100 08/13/22 07:23 94 H 08/13/22 07:19 107 H 16 96 08/13/22 03:29 36.8 C 95 H 18 94/52 L 92 O2 Del Method O2 Flow Rate 08/13/22 12:12 Nasal Cannula 2 08/13/22 08:00 Nasal Cannula 2 08/13/22 07:36 Nasal Cannula 2 08/13/22 07:23 08/13/22 07:19 Nasal Cannula 2 08/13/22 03:29 Nasal Cannula 2 PG Care Time/CCT Total # of Minutes Spent Total Time Spent with Patient: Total time spent is greater than 50% in coordination of care (as documented) at patient's floor/unit and/or counseling patient: Coding Level of Care Code 99575 SUB INP/OBS CARE MIN Diagnoses Pulmonary embolism I26.99 Severe protein-calorie malnutrition E43 Chronic obstructive pulmonary disease J44.9 Acute respiratory failure with hypoxia and hypercapnia J96.01; J96.02 Pneumonia J18.9
--- NOTE | 2022-08-13 13:13 | Hospitalist Progress Note ---
Date of Service August 13, 2022 Assessment & Plan (1) Acute respiratory failure with hypoxia and hypercapnia: Plan: Most likely secondary to lobar PNA and lung mass Much improved today Currently on 2L of oxygen, wean as tolerated Aim O2 sats 88-92% Not on oxygen at baseline Will avoid BiPAP unless respiratory acidosis getting worse due to severe bullous emphysema and left apical bronchopleural fistula Appreciate Pulmonology recs (2) Sepsis: Plan: Secondary to lobar PNA Now resolving Procalcitonin is down trending Now on Cefuroxime PO and Azithromycin (3) Pneumonia: Plan: Patient was admitted with worsening shortness of breath Chest x ray showed evidence of right lobar PNA Cultures were obtained and he was started on broad spectrum antibiotics, Clinically much improved Now on Cefuroxime and Azithromycin Cultures negative so far (4) Lung mass: Plan: Highly concerning for lung cancer given recent PET scan in july. Biopsy has been scheduled at the end of the month at [facility]. (5) Anemia: Plan: Normocytic anemia has been worked up extensively in the past by hematology and oncology accpording to patient hb 8 post transfusion Will continue PO iron given low iron levels (6) Acute hypotension: Plan: Resolved with initial IV fluids resuscitation and midodrine Continue midodrine although will increase to 10mg PO TID Continue LR for YOON which is presumed pre-renal overnight (7) Pulmonary embolism: Plan: Chronic non occlusive pulmonary emboli noted on CT with definite acute pulmonary emboli identified. Started on Lovenox 50mg BID patient said the is willing to help with Lovenox injections at home (8) Chronic obstructive pulmonary disease: Plan: Severe emphysema on CT. Duonebs at home but no maintenance inhalers. Per last outside record pulmonology note he was on Breo Ellipta at one stage. On external pharmacy list he was prescribed Trelegy Ellipta on August 01 but unclear why this didn't make the med rec or if he was using this. No wheezing to suggest current exacerbation but I did exam him after an hour long duoneb and Solu-medrol 60mg IV given in the ER Continue Duonebs PRN and Budesonide Also Azithromycin PO (9) YOON (acute kidney injury): Plan: Resolved (10) Decreased appetite: Plan: Multiple reasons for this including lung cancer but also his severe emphysema. Dietary on consult (11) Severe protein-calorie malnutrition: Plan: Consult glass blower helper Continue nutritional supplements (12) Rheumatoid arthritis: Plan: Hold methotrexate in setting of acute infection (13) Peripheral arterial disease: Plan: Prolonged cap refil with poorly palpable periperal pulses (14) Cirrhosis, alcoholic: Plan: Noted history of this. Monitor for worsening abdominal distention with IV fluids. (15) Anxiety: Plan: Continue venlafaxine (16) Hypothyroidism: Plan: TSH 1.65 in March 2022 Suggest coming off his levothyroxine given small dose and significant weight loss (17) Benign prostate hyperplasia: Plan: Continue tamsulosin (18) Idiopathic polyneuropathy: Plan: Reduce gabapentin to 100mg QID to avoid respiratory suppression. 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 Physical Exam Physical Exam: The patient is awake, alert and oriented 3, chronically ill looking HEENT--PERRL, EOMI, mucous membranes and oropharynx mildly dry Neck--supple. No JVD. No bruits. Thyroid normal, trachea midline, no adenopathy. Heart--normal S1 and S2. No murmurs, rubs or gallops. Lungs--left upper lung rhonchi, reduced air entry on right lower lung zone Abdomen--normal bowel sounds and soft. Mild epigastric and left sided abdominal pain Extremities--no cyanosis or clubbing. No edema. Dermatologic--normal skin turgor, normal color, no abnormal lymph nodes, no rash. Neurologic--cranial nerves II through XII grossly intact. Rheumatologic--normal range of motion. Psychiatric--normal affect. Results & Data Results & Data Vital Signs (Past 12 Hours) Vital Signs Temp Pulse Pulse Resp BP BP Pulse Ox 08/13/22 12:12 98.1 F 96 H 18 103/60 98 08/13/22 08:00 08/13/22 07:36 97.7 F 95 H 20 102/64 100 08/13/22 07:23 94 H 08/13/22 07:19 107 H 16 96 08/13/22 03:29 98.2 F 95 H 18 94/52 L 92 O2 Del Method O2 Flow Rate 08/13/22 12:12 Nasal Cannula 2 08/13/22 08:00 Nasal Cannula 2 08/13/22 07:36 Nasal Cannula 2 08/13/22 07:23 08/13/22 07:19 Nasal Cannula 2 08/13/22 03:29 Nasal Cannula 2 PG Care Time/CCT Total # of Minutes Spent Total Time Spent with Patient: Total time spent is greater than 50% in coordination of care (as documented) at patient's floor/unit and/or counseling patient: Coding Level of Care Code 99043 SUB INP/OBS CARE 2/35MIN Diagnoses Acute respiratory failure with hypoxia and hypercapnia J96.01; J96.02 Sepsis A41.9 Pneumonia J18.9 Lung mass R91.8 Anemia D64.9 Acute hypotension I95.9 Pulmonary embolism I26.99 Chronic obstructive pulmonary disease J44.9 YOON (acute kidney injury) N17.9 Decreased appetite R63.0 Severe protein-calorie malnutrition E43 Rheumatoid arthritis M06.9 Peripheral arterial disease I73.9 Cirrhosis, alcoholic K70.30 Anxiety F41.9 Hypothyroidism E03.9 Benign prostate hyperplasia N40.0 Idiopathic polyneuropathy G60.9 History of alcohol use Z87.898 Time Spent (min) 35
[2022-08-13] MEDS: ROSUVASTATIN CALCIUM 5 MG TAB PO SCH (21:11)
[2022-08-13] MEDS: PANTOprazole 40 MG TAB PO SCH (21:11)
[2022-08-13] MEDS: TAMSULOSIN HCL 0.4 MG CAP PO SCH (21:12)
[2022-08-14] MEDS: BUDESONIDE 0.5 MG/2 ML VIAL (PULMICORT) NEB SCH (07:06)
[2022-08-14] MEDS: FORMOTEROL 20 MCG/2 ML VIAL NEB SCH (07:06)
[2022-08-14 07:28] LABS: Hematocrit (blood only) 25.9 % (42.0-52.0); Hemoglobin 8.6 g/dl (14.0-18.0); Mean Corpuscular Hgb Conc 33.2 g/dL (32.0-36.0); Mean Corpuscular Volume 96.3 fL (80.0-100.0); Mean Platelet Volume 9.9 fL (9.4-12.4); Platelet Count 229 K/uL (130-400); RDW Coefficient of Variation 20.3 % (11.5-14.5); RDW Standard Deviation 70.6 fL (36.4-46.3); Red Blood Count 2.69 M/uL (4.70-6.10); White Blood Count 5.34 K/ul (4.8-10.8)
[2022-08-14 07:48] LABS: BUN Creatinine Ratio 17.4 (10-20); Calcium 8.4 mg/dl (8.5-10.1); Creatinine Clr Calc Pharmacy 85.6 ml/min; Est GFR (African American) 118.8 ml/min; Est GFR (Non-African American) 102.5 ml/min; Potassium 3.8 mmol/L (3.5-5.1)
[2022-08-14] MEDS: FERROUS SULFATE 325 MG TAB PO SCH (08:36)
[2022-08-14] MEDS: MIDODRINE HCL 10 MG TAB PO SCH ×2 (08:36→12:24)
[2022-08-14] MEDS: ASPIRIN 81 MG ECTAB PO SCH (08:36)
[2022-08-14] MEDS: AZITHROMYCIN 250 MG TAB PO SCH (08:36)
[2022-08-14] MEDS: carBAMazepine 100 MG CHEW TAB PO SCH (08:37)
[2022-08-14] MEDS: busPIRone 15 MG TAB PO SCH ×2 (08:37→13:22)
[2022-08-14] MEDS: cefUROXime axetil 500 MG TAB PO SCH (08:37)
[2022-08-14] MEDS: ENOXAPARIN INJ 60 MG/0.6 ML SYR SQ SCH (08:38)
[2022-08-14] MEDS: CHOLECALCIFEROL 5,000 UNITS 125 MCG TAB PO SCH (08:38)
[2022-08-14] MEDS: DOCUSATE SODIUM 100 MG CAP PO SCH (08:38)
[2022-08-14] MEDS: GABAPENTIN 100 MG CAP PO SCH ×2 (08:39→12:24)
[2022-08-14] MEDS: FOLIC ACID 1 MG TAB PO SCH (08:39)
[2022-08-14] MEDS: guaiFENesin 600 MG TABCR PO SCH (08:40)
[2022-08-14] MEDS: VENLAFAXINE HCL XR 75 MG CAPXR PO SCH ×2 (08:40→13:22)
[2022-08-14] MEDS: SENNA 8.6 MG TAB PO SCH (08:40)
--- NOTE | 2022-08-14 10:22 | XRay Report ---
XR chest 1V portable CLINICAL HISTORY: Shortness of breath. COMPARISON STUDY: Chest radiograph and chest CT August 10, 2022. FINDINGS: Left apical lucency is likely due to an underlying bronchopleural fistula, better depicted on prior CT. There is severe emphysema. No pneumothorax or pleural effusion is present. Irregular diego ateral densities within the lungs favor scarring. Multifocal airspace opacities shown on prior exam h ave improved. No evidence for pulmonary edema. Cardiac size is normal. Mediastinal contours are nba l. IMPRESSION: 1. Findings suggestive of interval improvement in multifocal pneumonia. 2. Severe emphysema. ACT 112: Negative or not required by law. Electronically signed by: Sergei Beckwith M.D. 08/14/2022 10:21 AM
--- NOTE | 2022-08-14 12:09 | Hospitalist Progress Note ---
Date of Service August 14, 2022 Assessment & Plan (1) Acute respiratory failure with hypoxia and hypercapnia: Plan: Most likely secondary to lobar PNA and lung mass Much improved today Currently on 2L of oxygen, wean as tolerated Aim O2 sats 88-92% Not on oxygen at baseline, he desaturated especially on mild exertion will need 2 step today Repeat chest x ray today shows interval improvement in PNA Appreciate Pulmonology recs Hopefully d/c today (2) Sepsis: Plan: Secondary to lobar PNA Resolved Discharge home on Cefuroxime PO and Azithromycin (3) Pneumonia: Plan: Patient was admitted with worsening shortness of breath Chest x ray showed evidence of right lobar PNA Cultures were obtained and he was started on broad spectrum antibiotics, Clinically much improved, chest x ray also shows interval improvement Now on Cefuroxime and Azithromycin, discharge on a few more days Cultures negative so far (4) Lung mass: Plan: Highly concerning for lung cancer given recent PET scan in july. Biopsy has been scheduled at the end of the month at [facility]. (5) Anemia: Plan: Normocytic anemia has been worked up extensively in the past by hematology and oncology accpording to patient hb 8 post transfusion Will continue PO iron given low iron levels (6) Acute hypotension: Plan: Resolved with initial IV fluids resuscitation and midodrine Continue midodrine although will increase to 10mg PO TID Continue LR for YOON which is presumed pre-renal overnight (7) Pulmonary embolism: Plan: Chronic non occlusive pulmonary emboli noted on CT with definite acute pulmonary emboli identified. Started on Lovenox 50mg BID patient said the is willing to help with Lovenox injections at home (8) Chronic obstructive pulmonary disease: Plan: Severe emphysema on CT. Duonebs at home but no maintenance inhalers. Per last outside record pulmonology note he was on Breo Ellipta at one stage. On external pharmacy list he was prescribed Trelegy Ellipta on August 01 but unclear why this didn't make the med rec or if he was using this. No wheezing to suggest current exacerbation but I did exam him after an hour long duoneb and Solu-medrol 60mg IV given in the ER Continue Duonebs PRN and Budesonide Also Azithromycin PO (9) YOON (acute kidney injury): Plan: Resolved (10) Decreased appetite: Plan: Multiple reasons for this including lung cancer but also his severe emphysema. 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 Monitor for worsening abdominal distention with IV fluids. (15) Anxiety: Plan: Continue venlafaxine (16) Hypothyroidism: Plan: TSH 1.65 in March 2022 Suggest coming off his levothyroxine given small dose and significant weight loss (17) Benign prostate hyperplasia: Plan: Continue tamsulosin (18) Idiopathic polyneuropathy: Plan: Reduce gabapentin to 100mg QID to avoid respiratory suppression. 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 Physical Exam Physical Exam: The patient is awake, alert and oriented 3, chronically ill looking HEENT--PERRL, EOMI, mucous membranes and oropharynx mildly dry Neck--supple. No JVD. No bruits. Thyroid normal, trachea midline, no adenopathy. Heart--normal S1 and S2. No murmurs, rubs or gallops. Lungs--left upper lung rhonchi, reduced air entry on right lower lung zone Abdomen--normal bowel sounds and soft. Mild epigastric and left sided abdominal pain Extremities--no cyanosis or clubbing. No edema. Dermatologic--normal skin turgor, normal color, no abnormal lymph nodes, no rash. Neurologic--cranial nerves II through XII grossly intact. Rheumatologic--normal range of motion. Psychiatric--normal affect. Results & Data Results & Data Vital Signs (Past 12 Hours) Vital Signs Temp Pulse Pulse Resp BP BP Pulse Ox 08/14/22 11:03 97.5 F L 87 18 110/72 99 08/14/22 09:00 08/14/22 07:33 104 H 08/14/22 07:27 94 H 20 91 08/14/22 07:19 97.7 F 101 H 20 98/63 L 100 08/14/22 03:10 98.1 F 100 H 16 100/57 L 91 O2 Del Method O2 Flow Rate 08/14/22 11:03 Nasal Cannula 2 08/14/22 09:00 Nasal Cannula 1 08/14/22 07:33 08/14/22 07:27 Nasal Cannula 1 08/14/22 07:19 Nebulizer 08/14/22 03:10 Nasal Cannula 1 PG Care Time/CCT Total # of Minutes Spent Total Time Spent with Patient: Total time spent is greater than 50% in coordination of care (as documented) at patient's floor/unit and/or counseling patient: Coding Level of Care Code 34137 SUB INP/OBS CARE 2/35MIN Diagnoses Acute respiratory failure with hypoxia and hypercapnia J96.01; J96.02 Sepsis A41.9 Pneumonia J18.9 Lung mass R91.8 Anemia D64.9 Acute hypotension I95.9 Pulmonary embolism I26.99 Chronic obstructive pulmonary disease J44.9 YOON (acute kidney injury) N17.9 Decreased appetite R63.0 Severe protein-calorie malnutrition E43 Rheumatoid arthritis M06.9 Peripheral arterial disease I73.9 Cirrhosis, alcoholic K70.30 Anxiety F41.9 Hypothyroidism E03.9 Benign prostate hyperplasia N40.0 Idiopathic polyneuropathy G60.9 History of alcohol use Z87.898 Time Spent (min) 35
--- NOTE | 2022-08-14 14:29 | Discharge Summary ---
Date of Service August 14, 2022 Admission HPI Per Admitting Provider Jens Park is a 61 year old male who presents to the ER via EMS with shortness of breath, generalized weakness and altered mental state. Currently still smoking but down from his previous 1 pack a day. He reports progressively getting worse with his breathing, losing weaght and decreased appetite since April. Increased cough and much worse shortness of breath this last week. Today he was much more confused than normal and he was unable to measure his oxygen saturation therefore his called for an ambulance as she suspected he had pneumonia. He has a significant history of MRSA pneumonia requiring intubation and ICU admission last September. He has COPD Gold stage II per last pulmonology note and severe emphysema on CT imaging. He is currently being worked up for a lung mass which is likely a neoplasm per recent PET/CT in July. He is awaiting a biopsy of this mass next week. He is not on oxygen at home per patient although last pulmonology note mentions supplemental oxygen at 2L NC continuously. In the ER he was noted to be in severe respiratory distress. CT chest angiogram showed no acute pulmonary emboli but did show chronic non occlusive pulmonary emboli, findings concern for pneumonia (possible aspiration), left upper lobe mass previously evaluated on PET/CT and severe bullous emphysema with re- demonstration of left apical bronchopleural fistula. He was treated as sepsis with pneumonia. Initially BP of 80/50 responded to IV fluids however initial lactate was normal with this blood pressure. He was treated for pneumonia with cefepime and vancomycin. He was treated for possible COPD exacerbation with solu-medrol 60mg IV and duoneb. He was referred to medicine for admission and ongoing management of hypoxia and pneumonia. Principal Diagnosis Lobar PNA, Lung mass Discharge Exam The patient is awake, alert and oriented 3, chronically ill looking HEENT--PERRL, EOMI, mucous membranes and oropharynx mildly dry Neck--supple. No JVD. No bruits. Thyroid normal, trachea midline, no adenopathy. Heart--normal S1 and S2. No murmurs, rubs or gallops. Lungs--left upper lung rhonchi, reduced air entry on right lower lung zone Abdomen--normal bowel sounds and soft. Mild epigastric and left sided abdominal pain Extremities--no cyanosis or clubbing. No edema. Dermatologic--normal skin turgor, normal color, no abnormal lymph nodes, no rash. Neurologic--cranial nerves II through XII grossly intact. Rheumatologic--normal range of motion. Psychiatric--normal affect. Discharge Data Allergies Allergy/AdvReac Type Severity Reaction Status Date / Time pregabalin Allergy Severe ANAPHYLAXIS Verified 08/10/22 16:28 Consultations 08/10/22 17:32 ED Decision to Admit Stat 08/10/22 19:12 Consult Pulmonology Routine Ordered Studies 08/10/22 15:50 CT Abd and Pelvis [CT abd pelvis IV con only] Stat CT angio chest PE protocol Stat 08/10/22 16:02 CT head/brain wo con Stat 08/11/22 07:00 US arterial duplex LE BI Routine Hospital Course (1) Acute respiratory failure with hypoxia and hypercapnia: Most likely secondary to lobar PNA and lung mass Much improved today Currently on 2L of oxygen, wean as tolerated Aim O2 sats 88-92% Not on oxygen at baseline, he desaturated especially on mild exertion 2 step shows he needs 2L of oxygen continuos at home Repeat chest x ray today shows interval improvement in PNA Appreciate Pulmonology recs Hopefully d/c today (2) Sepsis: Secondary to lobar PNA Resolved Discharge home on Cefuroxime PO and Azithromycin (3) Pneumonia: Patient was admitted with worsening shortness of breath Chest x ray showed evidence of right lobar PNA Cultures were obtained and he was started on broad spectrum antibiotics, Clinically much improved, chest x ray also shows interval improvement Now on Cefuroxime and Azithromycin, discharge on a few more days Cultures negative so far (4) Lung mass: Highly concerning for lung cancer given recent PET scan in july. Biopsy has been scheduled at the end of the month at [facility]. (5) Anemia: Normocytic anemia has been worked up extensively in the past by hematology and oncology accpording to patient hb 8 post transfusion Will continue PO iron given low iron levels (6) Acute hypotension: Resolved with initial IV fluids resuscitation and midodrine Continue midodrine although will increase to 10mg PO TID Continue LR for YOON which is presumed pre-renal overnight (7) Pulmonary embolism: Chronic non occlusive pulmonary emboli noted on CT with definite acute pulmonary emboli identified. Started on Lovenox 50mg BID patient said the is willing to help with Lovenox injections at home (8) Chronic obstructive pulmonary disease: Severe emphysema on CT. Duonebs at home but no maintenance inhalers. Per last outside record pulmonology note he was on Breo Ellipta at one stage. On external pharmacy list he was prescribed Trelegy Ellipta on August 01 but unclear why this didn't make the med rec or if he was using this. No wheezing to suggest current exacerbation but I did exam him after an hour long duoneb and Solu-medrol 60mg IV given in the ER Continue Duonebs PRN and Budesonide Also Azithromycin PO (9) YOON (acute kidney injury): Resolved (10) Decreased appetite: Multiple reasons for this including lung cancer but also his severe emphysema. 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 Monitor for worsening abdominal distention with IV fluids. (15) Anxiety: Continue venlafaxine (16) Hypothyroidism: TSH 1.65 in March 2022 Suggest coming off his levothyroxine given small dose and significant weight loss (17) Benign prostate hyperplasia: Continue tamsulosin (18) Idiopathic polyneuropathy: Reduce gabapentin to 100mg QID to avoid respiratory suppression. 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 (19) History of alcohol use: Plan VTE Prophylaxis - Lovenox Hopefully d/c in the next 24 hrs Total Time Total Time Spent Total Time Spent (In Minutes): 35 Discharge Plan Discharge Items Patient Disposition: Home - Self-Care Reason For Visit: sepsis pneumonia, yoon Discharge Diagnosis: Lobar PNA Activity: Resume your previous activity Non-emergency contact: Oncologist and Client Director Call non-emergency contact if: you have any medication questions and your symptoms worsen Follow-up/Referrals: Michelle Campos DO [Primary Care Provider] - Diet: Regular Addtl Attending Provider Instructions: Please make appointment to follow up with your PCP and also your oncologist by the end of this month in [facility] Pending Studies at Discharge: No Stand-Alone Forms: My [facility], Smoking Cessation Medications and DC Order Prescriptions: New azithromycin 250 mg Tablet 250 mg PO QAM 7 Days Qty: 7 0RF cefuroxime axetil 500 mg Tablet 500 mg PO BID 7 Days Qty: 14 0RF enoxaparin 60 mg/0.6 mL Syringe 50 mg subcut Q12 30 Days Qty: 30 0RF Continued methotrexate sodium 2.5 mg tablet 15 mg PO WK 30 Days Qty: 180 1RF Rx Instructions: TAKES ON WEDNESDAYS. tamsulosin 0.4 mg capsule 0.4 mg PO PM Qty: 90 1RF ipratropium-albuterol 0.5 mg-3 mg(2.5 mg base)/3 mL solution for nebulization 3 ml inhalation Q6H PRN (Reason: Shortness Of Breath Or Wheezing J44.9;j44.1) Qty: 3 5RF pantoprazole 40 mg tablet,delayed release (DR/EC) 40 mg PO QPM Qty: 90 1RF gabapentin 100 mg capsule 100 mg PO QID Qty: 360 1RF Rx Instructions: TOTAL DOSE 700 MG--TAKES WITH 600 MG TAB. carbamazepine 100 mg tablet,chewable 100 mg PO BID 90 Days Qty: 180 1RF folic acid 1 mg tablet 1 mg PO QAM Qty: 180 3RF buspirone 15 mg tablet See Rx Instructions .ROUTE .COMPLEX Qty: 90 3RF Rx Instructions: Take 1 tab PO in morning and in the afternoon, 1.5 tab PO evening; venlafaxine 75 mg capsule,extended release 24hr 75 mg PO TID Qty: 90 1RF levothyroxine 25 mcg tablet 25 mcg PO DAILYBB Qty: 90 1RF sennosides 8.6 mg tablet 8.6 mg PO BID Qty: 60 5RF clotrimazole 10 mg anny 10 mg mucous membrane TID 14 Days Qty: 42 0RF gabapentin 600 mg tablet 600 mg PO QID Qty: 120 5RF Rx Instructions: TOTAL DOSE 700 MG--TAKES WITH 100 MG TAB. rosuvastatin [Crestor] 5 mg tablet 5 mg PO PM Qty: 90 3RF docusate sodium 100 mg capsule 100 mg PO BID Qty: 180 3RF oxycodone 10 mg tablet 10 mg PO TID PRN (Reason: pain) Qty: 90 0RF (DME) 4 in toilet rise See Rx Instructions .Route .MEDSUPPLY Qty: 1 0RF Rx Instructions: As directed (DME) Shower Grab Bar 0 .Route .MEDSUPPLY (DME) Grab Bar Toilet See Rx Instructions .Route .MEDSUPPLY Qty: 1 0RF Rx Instructions: As directed midodrine 2.5 mg Tablet 5 mg PO TID@0800,1200,1700 Qty: 60 0RF aspirin 81 mg tablet,delayed release (DR/EC) 81 mg PO QAM cholecalciferol (vitamin D3) 125 mcg (5,000 unit) tablet 5,000 unit PO QAM Discharge Orders: Discharge Order (Routine); Ordered 08/14/22 Ordered By: Ligia Garcia Admission Data Admit Date/Time: 08/10/22 17:54 Attending Provider: Ligia Garcia Admit Provider: Russell Dimas Primary Care Provider: Michelle Campos Other Providers: Russell Dimas ; Kolby Salguero Coding Level of Care Code 21049 INP/OBS DISCH >30 MIN Diagnoses Acute respiratory failure with hypoxia and hypercapnia J96.01; J96.02 Sepsis A41.9 Pneumonia J18.9 Lung mass R91.8 Anemia D64.9 Acute hypotension I95.9 Pulmonary embolism I26.99 Chronic obstructive pulmonary disease J44.9 YOON (acute kidney injury) N17.9 Decreased appetite R63.0 Severe protein-calorie malnutrition E43 Rheumatoid arthritis M06.9 Peripheral arterial disease I73.9 Cirrhosis, alcoholic K70.30 Anxiety F41.9 Hypothyroidism E03.9 Benign prostate hyperplasia N40.0 Idiopathic polyneuropathy G60.9 History of alcohol use Z87.898 Time Spent (min) 35
== END 2022-08-14 16:22 | disposition home or self-care (01) | DRG 871 ==
LOC: ED 15:38 → SUATTDRO 17:54 → 2S 17:54